=== PATIENT | female | born 1940 | race Caucasian/White ===

== ENCOUNTER 2023-03-22 22:34 | Emergency (ER) | payer OTHER, SELFPAY ==
[2023-03-22 22:48] VITALS: BP 170/72; PULSE 95; RESP 20; TEMP 36.9; O2SAT 95; BMI 27.1
--- NOTE | 2023-03-22 23:07 | XR_ITS ---
The [place] [id number] Patient Name: GARY ADAMES MRN: [id number] date: 1940 Sex: F Assigned Patient Location: ED.MAIN Current Patient Location: ER Accession/Order Number: [id number] Exam Date: 03/22/2023 23:50 Report Date: 03/23/2023 00:12 At the request of: IGOR MARKER Procedure: XR chest 2V EXAM: XR chest 2V HISTORY: cough COMPARISON: None. TECHNIQUE: PA and lateral views FINDINGS: The heart is upper normal in transverse diameter. Atherosclerotic change of the thoracic aorta is shown, without visible aneurysm. A calcified granuloma is seen in the left upper lung field laterally. The lung starkey are otherwise clear. Pleural spaces are clear. There are findings associated with previous lower cervical fusion. Right axillary surgical clips are noted. IMPRESSION: Chronic changes. No acute cardiopulmonary process is otherwise identified. Electronically authenticated by: Vick KWAN Date: 03/23/2023 00:12
--- NOTE | 2023-03-22 23:10 | ED_ITS ---
HPI - General Adult General Chief complaint: Shortness of Breath/Dyspnea Stated complaint: coughing/congestion Time Seen by Provider: 03/22/23 22:45 Source: patient and family Mode of arrival: walk-in Limitations: no limitations History of Present Illness HPI narrative: This 82-year-old female, nonsmoker presents for evaluation of 3 days of cough with chest congestion. The patient states that she cannot stop coughing. She has been using Mucinex and NyQuil. She denies any chest pain. She denies any fever but was noted to have a low-grade fever in the emergency department. 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 She denies any abdominal pain. She denies nausea vomiting or diarrhea. She has no lower extremity pain or swelling. Onset (ago): day(s) (3) Related Data Home Medications Medication Instructions Recorded Confirmed anastrozole 1 mg tablet 1 mg PO DAILY 03/22/23 03/22/23 bupropion HCl 300 mg 24 hr tablet, 300 mg PO DAILY 03/22/23 03/22/23 extended release levothyroxine 75 mcg tablet mcg 03/22/23 liothyronine 5 mcg tablet 5 mcg PO BID 03/22/23 03/22/23 meclizine 25 mg tablet 25 mg PO DAILY PRN dizziness 03/22/23 03/22/23 meloxicam 7.5 mg tablet 7.5 mg PO DAILY 03/22/23 03/22/23 omeprazole 40 mg capsule,delayed 40 mg PO BID 03/22/23 03/22/23 release paroxetine HCl 20 mg tablet 20 mg PO DAILY 03/22/23 03/22/23 simvastatin 10 mg tablet 10 mg PO DAILY 03/22/23 03/22/23 thyroid (pork) 15 mg tablet (SANDER PORTABLE MACHINE 60 mg PO BID 03/22/23 03/22/23 Thyroid) verapamil 240 mg tablet,extended 240 mg PO Q12H 03/22/23 03/22/23 release Allergies Allergy/AdvReac Type Severity Reaction Status Date / Time No Known Drug Allergies Allergy Verified 03/22/23 22:52 Review of Systems ROS Status of ROS 10 or more systems reviewed and unremarkable except as noted in history and below PFSH PFSH Social History Smoking status: Never smoker Exam Constitutional Vital Signs - 24 hr 03/22/23 22:48 03/22/23 23:58 03/23/23 00:53 Temperature 98.5 F Pulse Rate 77 Pulse Rate [Monitor] 95 H Respiratory Rate 20 18 20 Blood Pressure [Left Arm] 170/72 H Pulse Oximetry 95 93 L Oxygen Delivery Method Room Air 03/23/23 01:39 Temperature 98.6 F Pulse Rate Pulse Rate [Monitor] 94 H Respiratory Rate 20 Blood Pressure [Left Arm] 184/69 H Pulse Oximetry 92 L Oxygen Delivery Method Room Air Documenting provider has reviewed patient's vital signs: yes (Vital signs reviewed, the patient is not hypoxic with pulse ox 95 percent on room air) Common normals: no apparent distress, average body habitus and oriented x3 General appearance: comfortable (Episodes of bronchospastic coughing) and well kempt HENOH Common normals: normocephalic, head/scalp atraumatic, hearing grossly normal bilaterally and oropharynx normal Head and scalp: normal to inspection Face and sinus: normal facial exam Nose: external nose normal Mouth: oral and palatal mucosa normal Chest Common normals: inspection of chest normal Respiratory Common normals: normal respiratory effort, no retractions, no use of accessory muscles and clear to auscultation bilaterally Effort & inspection: able to speak in complete sentences and other (episodic moist bronchospastic cough) Auscultation: clear to auscultation bilaterally Cardio Common normals: regular rate, regular rhythm, S1 normal heart sound, S2 normal heart sound, no gallops, no murmurs and no rub GI Common normals: Normal to inspection, nondistended, normoactive bowel sounds present, soft to palpation and non-tender Extremity Common normals: normal to inspection, full ROM and normal capillary refill Neuro Common normals: oriented x3, CN's II-XII intact bilaterally, moves all extremities, no focal motor deficits and no sensory deficits noted Sensorium/orientation: awake, alert, oriented to person, oriented to place and oriented to time Psych Common normals: mental status grossly normal, thought process normal, cooperative, affect normal and speech normal Course Vital Signs Vital signs: Vital Signs Temperature 98.5 F 03/22/23 22:48 Pulse Rate 95 H 03/22/23 22:48 Respiratory Rate 20 03/22/23 22:48 Blood Pressure 170/72 H 03/22/23 22:48 Pulse Oximetry 95 03/22/23 22:48 Oxygen Delivery Method Room Air 03/22/23 22:48 Temperature 98.6 F 03/23/23 01:39 Pulse Rate 94 H 03/23/23 01:39 Respiratory Rate 20 03/23/23 01:39 Blood Pressure 184/69 H 03/23/23 01:39 Pulse Oximetry 92 L 03/23/23 01:39 Oxygen Delivery Method Room Air 03/23/23 01:39 Medical Decision Making MDM Narrative Medical decision making narrative: His 82-year-old female, nonsmoker presents for evaluation of 3 days of cough, chest congestion. She has not had a fever but had a low-grade fever in the emergency department. 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 The patient's lungs were clear but she was having severe bronchospasms. She received a DuoNeb treatment in the emergency department and this made her cough worse. Chest x-ray is read by radiology as negative however she does have a history of pneumonia and appears to me that she may be developing a right lower lobe infiltrate. This was discussed with her and she was medicated with oral doxycycline and a dose of Tylenol with codeine and Zofran. She was not having any additional symptoms. I offered her IV fluids and additional medications but she declined. A respiratory panel was ordered and is pending however the patient would like to be discharged home. We explained to her that we will call her with the results. She is otherwise improved after the Tylenol with codeine help stop her spasmodic coughing and she was discharged home with her in stable condition. She will be discharged home with prescription for Zofran to use to prevent nausea from the Tylenol with codeine cough medication, Tylenol with codeine cough medication and doxycycline. I encouraged her to return to emergency department for worsening symptoms or any concerns and to follow closely with her family physician. She and her are in agreement with this plan. Discharge Plan Discharge Chief Complaint: Shortness of Breath/Dyspnea Clinical Impression: Community acquired pneumonia Patient Disposition: Home, Self-Care Time of Disposition Decision: 02:02 Condition: Good Prescriptions / Home Meds: No Action anastrozole 1 mg tablet 1 mg PO DAILY bupropion HCl 300 mg tablet extended release 24 hr 300 mg PO DAILY liothyronine 5 mcg tablet 5 mcg PO BID meclizine 25 mg tablet 25 mg PO DAILY PRN (Reason: dizziness) meloxicam 7.5 mg tablet 7.5 mg PO DAILY omeprazole 40 mg capsule,delayed release(DR/EC) 40 mg PO BID paroxetine HCl 20 mg tablet 20 mg PO DAILY simvastatin 10 mg tablet 10 mg PO DAILY SANDER [employer]ABLE MACHINE Thyroid 15 mg tablet 60 mg PO BID Patient Comments: 2 tablets BID levothyroxine 75 mcg tablet verapamil 240 mg tablet extended release 240 mg PO Q12H Instructions: Community Acquired Pneumonia (ED) Stand Alone Forms: Portal Instructions Referrals: MAYURI MOSES [Primary Care Provider] - 1 week
[2023-03-22 23:58] VITALS: PULSE 77; RESP 18; O2SAT 93
[2023-03-22] MEDS: IPRATROPIUM/ALBUTEROL SULFATE 3 ML AMPUL.NEB IH (23:58)
[2023-03-23] MEDS: ONDANSETRON 4 MG RAPDIS TABLET SL (00:47)
[2023-03-23] MEDS: ACETAMINOPHEN 120 MG WITH CODEINE 12 MG/ 5 ML SOLUTION PO ×2 (00:47→02:12)
[2023-03-23] MEDS: DOXYCYCLINE MONOHYDRATE 100 MG CAPSULE PO (00:47)
[2023-03-23 00:53] VITALS: RESP 20
[2023-03-23 01:39] VITALS: BP 184/69; PULSE 94; RESP 20; TEMP 37; O2SAT 92
[2023-03-23 02:53] LABS: Adenovirus NOT DETECTED (NOT DETECTE); Bordetella parapertussis NOT DETECTED (NOT DETECTE); Coronavirus 229E NOT DETECTED (NOT DETECTE); Coronavirus HKU1 NOT DETECTED (NOT DETECTE); Coronavirus NL63 NOT DETECTED (NOT DETECTE); Coronavirus OC43 NOT DETECTED (NOT DETECTE); Human Metapneumovirus NOT DETECTED (NOT DETECTE); Human Rhinovirus/Enterovirus NOT DETECTED (NOT DETECTE); Influenza A NOT DETECTED (NOT DETECTE); Influenza B NOT DETECTED (NOT DETECTE); Mycoplasma pneumoniae NOT DETECTED (NOT DETECTE); Parainfluenza Virus 1 NOT DETECTED (NOT DETECTE); Parainfluenza Virus 2 NOT DETECTED (NOT DETECTE); Parainfluenza Virus 3 NOT DETECTED (NOT DETECTE); Parainfluenza Virus 4 NOT DETECTED (NOT DETECTE); Respiratory Syncytial Virus NOT DETECTED (NOT DETECTE); SARS-CoV-2 NOT DETECTED (NOT DETECTE)
== END 2023-03-23 02:18 | disposition home or self-care (01) ==
PROVIDERS: Emergency Provider Emergency Medicine; PCP Family Medicine
DX: J18.9 Pneumonia, unspecified organism (principal); R50.9 Fever, unspecified; Z79.899 Other long term (current) drug therapy; Z79.890 Hormone replacement therapy; Z20.822 Contact with and (suspected) exposure to COVID-19
CPT/HCPCS: 0202U; 71046; 94640; 99284

== ENCOUNTER 2023-04-04 12:38 | Outpatient (OUT) | payer OTHER, SELFPAY ==
[2023-04-04 13:02] LABS: Basophils Percent Auto 0.4 % (0.2-2.0); Eosinophils Absolute Auto 0.2 10^3/uL (0.0-0.7); Eosinophils Percent Auto 4.1 % (0.9-7.0); Hemoglobin 12.9 g/dL (12.0-16.0); Immature Granulocytes Abs Auto 0.01 10^3/uL (0.00-0.03); Immature Granulocytes Pct Auto 0.2 % (0.0-0.5); Lymphocytes Absolute Auto 1.7 10^3/uL (1.2-3.8); Lymphocytes Percent Auto 33.1 % (20.5-60.0); Mean Corpuscular HGB Conc 33.1 g/dL (29.9-35.2); Mean Corpuscular Hemoglobin 30.9 pg (26.7-34.0); Mean Corpuscular Volume 93.5 fL (81.0-99.0); Mean Platelet Volume 9.6 fL (9.5-13.5); Monocytes Absolute Auto 0.3 10^3/uL (0.3-0.8); Monocytes Percent Auto 6.6 % (1.7-12.0); Neutrophils Absolute Auto 2.9 10^3/uL (1.4-6.5); Neutrophils Percent Auto 55.6 % (43.0-75.0); Platelet Count 189 10^3/uL (150-450); Red Blood Count 4.17 10^6/uL (4.20-5.40); Red Cell Distribution Width 13.2 % (11.0-15.0); White Blood Count 5.1 10^3/uL (4.0-11.0)
[2023-04-04 13:49] LABS: Alanine Aminotransferase 22 U/L (14-59); Albumin Level 3.6 g/dL (3.4-5.0); Alkaline Phosphatase 73 U/L (46-116); Anion Gap 10.8; Aspartate Amino Transferase 16 U/L (15-37); BUN Creatinine Ratio 16.1; Bilirubin Total 0.4 mg/dL (0.2-1.0); Calcium 9.1 mg/dL (8.5-10.1); Carbon Dioxide 28.6 mmol/L (21.0-32.0); Chloride 103 mmol/L (98-107); Estimated GFR (African America >60 (>=60); Estimated GFR (Non-African Ame 58 (>=60); Globulin 3.6 g/dL; Glucose 87 mg/dL (74-106); Potassium 4.4 mmol/L (3.5-5.1); Sodium 138 mmol/L (136-145); Total Protein 7.2 g/dL (6.4-8.2)
== END 2023-04-04 12:39 | disposition home or self-care (01) ==
LOC: LAB 12:40
PROVIDERS: PCP Family Medicine; Visit Provider Family Medicine
DX: R44.1 Visual hallucinations (principal); R41.840 Attention and concentration deficit; R41.3 Other amnesia; R51.9 Headache, unspecified; R42 Dizziness and giddiness
CPT/HCPCS: 36415; 80053; 85025

== ENCOUNTER 2023-04-08 16:34 | Outpatient (OUT) | payer OTHER, SELFPAY ==
[2023-04-08 17:08] LABS: Ammonia 16 umol/L (11-32)
[2023-04-10 05:08] LABS: Vitamin B12 >2000 pg/mL (232-1245)
== END 2023-04-08 16:35 | disposition home or self-care (01) ==
LOC: LAB 16:35
PROVIDERS: PCP Family Medicine; Visit Provider Family Medicine
DX: R44.1 Visual hallucinations (principal); R41.3 Other amnesia; R41.840 Attention and concentration deficit; R51.9 Headache, unspecified; R42 Dizziness and giddiness
CPT/HCPCS: 36415; 82140; 82607

== ENCOUNTER 2023-06-18 10:05 | Outpatient (RCR) | payer OTHER, SELFPAY | END 2023-06-19 16:55 | disposition home or self-care (01) | LOC: OT 10:05 | PROVIDERS: PCP Family Medicine; Visit Provider Psychiatry & Neurology Neurology | DX: R26.81 Unsteadiness on feet (principal) | CPT/HCPCS: 97165 ==

== ENCOUNTER 2023-06-19 10:55 | Outpatient (RCR) | payer OTHER, SELFPAY | END 2023-07-20 16:25 | disposition home or self-care (01) | LOC: PT 10:55 | PROVIDERS: PCP Family Medicine; Visit Provider Psychiatry & Neurology Neurology | DX: R26.81 Unsteadiness on feet (principal) | CPT/HCPCS: 97035; 97110; 97112; 97116; 97161; 97530 ==

== ENCOUNTER 2023-07-08 12:28 | Outpatient (OUT) | payer OTHER, SELFPAY ==
--- NOTE | 2023-07-08 13:02 | XR_ITS ---
The [address] [address] Patient Name: GARY ADAMES MRN: [id number] date: 1940 Sex: F Assigned Patient Location: LAB Current Patient Location: LAB Accession/Order Number: [id number] Exam Date: 07/08/2023 13:20 Report Date: 07/08/2023 14:01 At the request of: NICHOLE FLAHERTY Procedure: XR cervical spine 2-3V EXAMINATION: XR cervical spine 2-3V HISTORY: Gait Instability R20.81, Imbalance R26.59 COMPARISON: No relevant comparison available. FINDINGS: BONES: Normal alignment with no acute fracture or spondylolisthesis. Anterior fusion with a plate and screws C4 through C7 with no mechanical failure. Moderate degenerative spondylosis and facet osteoarthropathy C3-C4 DISC SPACES: Interbody fusion C3-C7. Disc collapse C3-C4 with endplate sclerosis PARASPINOUS: Negative. No paraspinous abnormality is seen. OTHER: Negative. XR/XR cervical spine 2-3V IMPRESSION: Anterior fusion C4 through C7 with no mechanical failure Electronically authenticated by: ERICK HOLDEN Date: 07/08/2023 14:01
--- NOTE | 2023-07-08 13:02 | MR_ITS ---
[address] [address] Patient Name: GARY ADAMES MRN: [id number] date: 1940 Sex: F Assigned Patient Location: LAB Current Patient Location: LAB Accession/Order Number: [id number] Exam Date: 07/08/2023 13:48 Report Date: 07/08/2023 20:19 At the request of: NICHOLE FLAHERTY Procedure: MR head/brain wo/w con EXAM: MR head/brain wo/w con. HISTORY: Alzheimer's Disease Late Onset G30.1. COMPARISON: None. TECHNIQUE: Multiplanar, multisequence MR imaging of the head was performed prior to and following the administration of 12 mL Dotarem contrast intravenously. FINDINGS: No restricted diffusion. No acute hemorrhage, mass effect, midline shift or extra-axial fluid collection. There is moderate diffuse cerebral atrophy with concordant prominence of the ventricles. Moderate to severe patchy confluent areas of abnormal increased T2 and FLAIR signal are seen within the gaby, subcortical white matter and periventricular white matter. Expected flow voids are noted within the intracranial internal carotid, vertebral and basilar arteries. The cerebellopontine angles and internal auditory canals are unremarkable. The pituitary gland and midline structures are unremarkable. Bone marrow signal is within normal limits. There is artifact from anterior fixation hardware at the partially visualized C3 and C4 levels. The orbits and globes are unremarkable. There has been bilateral cataract eye surgery. Expected signal voids are seen within the paranasal sinuses and mastoid air cells. No abnormal enhancement. MR/MR head/brain wo/w con IMPRESSION: 1. Moderate to severe nonspecific FLAIR signal abnormalities of the gaby and supratentorial white matter, compatible with chronic small vessel ischemic changes. 2. Moderate diffuse cerebral atrophy with concordant prominence of the ventricles. 3. No acute infarct, mass effect or abnormal enhancement. Electronically authenticated by: ERICK PALMER Date: 07/08/2023 20:19
[2023-07-08 13:06] LABS: Estimated GFR (African America >60 (>=60); Estimated GFR (Non-African Ame 53 (>=60)
== END 2023-07-08 12:29 | disposition home or self-care (01) ==
PROVIDERS: PCP Family Medicine; Visit Provider Psychiatry & Neurology Neurology
DX: G30.1 Alzheimer's disease with late onset (principal); R26.81 Unsteadiness on feet; R26.89 Other abnormalities of gait and mobility
CPT/HCPCS: 36415; 70553; 72040; 82565; 84520

== ENCOUNTER 2023-07-24 10:59 | Outpatient (OUT) | payer OTHER, SELFPAY ==
[2023-07-24 11:58] LABS: Free T4 0.87 ng/dL (0.76-1.46)
[2023-07-24 12:06] LABS: Free T3 3.59 pg/mL (2.18-3.98)
[2023-07-25 09:09] LABS: Triiodothyronine (T3) 138 ng/dL (71-180)
[2023-08-01 18:08] LABS: Reverse T3, Serum 21.2 ng/dL (9.2-24.1)
== END 2023-07-24 11:00 | disposition home or self-care (01) ==
LOC: LAB 11:00
PROVIDERS: PCP Family Medicine; Visit Provider Family Medicine
DX: E03.8 Other specified hypothyroidism (principal); R53.82 Chronic fatigue, unspecified; E07.81 Sick-euthyroid syndrome
CPT/HCPCS: 36415; 84439; 84480; 84481; 84482

== ENCOUNTER 2023-07-25 08:00 | Outpatient (OUT) | payer OTHER, SELFPAY ==
[2023-07-25] MEDS: COVID VAC 23-24(12UP)MODERNA/PF 50 MCG/0.5 ML VIAL IM (14:45)
== END 2023-07-25 08:01 | disposition home or self-care (01) ==
LOC: VACCLI 09-13 09:35
PROVIDERS: PCP Family Medicine; Visit Provider Family Medicine
DX: Z23 Encounter for immunization (principal)
CPT/HCPCS: 90480; 91322

== ENCOUNTER 2023-08-09 11:30 | Outpatient (OUT) | payer OTHER, SELFPAY ==
--- NOTE | 2023-08-09 | MM_ITS ---
Patient Name: GARY ADAMES MR#: [id number] : 1940 Exam Date: 08/09/2023 Ordering Doctor: DR MAYURI MOSES . RADIOLOGY REPORT PROCEDURE: MM TOMOSYNTHESIS SCREENING BI COMPARISON: MG MAMM SCREEN 3D RUBEN CAD, 07/04/2022. MG MAMM RUBEN DIAG W CAD, 12/10/2019. MG MAMM RUBEN DIAG W CAD, 11/10/2018. MAMMO RUBEN SCREEN, 07/08/2008. INDICATIONS: screening for malignant neoplasm Calculator Name NCI Breast Cancer Risk Assessment Tool 5 Year Breast Cancer Risk n/a% Lifetime Breast Cancer Risk n/a% Personal Breast Cancer Yes, Right, 76 Personal Ovarian Cancer No Treatments lumpectomy and radiation treatment Family Cancers Mother with colon cancer at age 70. LOCATION: [facility] BREAST COMPOSITION: Heterogeneously dense,which may obscure small masses. FINDINGS: DIAGNOSTIC CATEGORY 2--BENIGN FINDING: RIGHT BREAST: No significant suspicious finding. Stable postsurgical scarring. No significant change has occurred. LEFT BREAST: No significant suspicious finding. No significant change has occurred. RECOMMENDATIONS: ROUTINE MAMMOGRAM AND CLINICAL EVALUATION IN 12 MONTHS. PLEASE NOTE: A NORMAL MAMMOGRAM DOES NOT EXCLUDE THE POSSIBILITY OF BREAST CANCER. A CLINICALLY SUSPICIOUS PALPABLE LUMP SHOULD BE BIOPSIED. Dictated by: Rory Velásquez M.D. on 08/09/2023 at 14:54 Approved by: Rory Velásquez M.D. on 08/09/2023 at 14:56
== END 2023-08-09 11:31 | disposition home or self-care (01) ==
LOC: MAMMO 11:31
PROVIDERS: PCP Family Medicine; Visit Provider Family Medicine
DX: Z12.31 Encounter for screening mammogram for malignant neoplasm of breast (principal); Z80.0 Family history of malignant neoplasm of digestive organs
CPT/HCPCS: 77063; 77067

== ENCOUNTER 2023-08-14 09:54 | Outpatient (OUT) | payer OTHER, SELFPAY ==
[2023-08-14 11:44] LABS: Alanine Aminotransferase 17 U/L (14-59); Albumin Level 3.4 g/dL (3.4-5.0); Alkaline Phosphatase 72 U/L (46-116); Anion Gap 11.2; Aspartate Amino Transferase 10 U/L (15-37); BUN Creatinine Ratio 18.8; Bilirubin Total 0.3 mg/dL (0.2-1.0); Calcium 8.6 mg/dL (8.5-10.1); Carbon Dioxide 31.3 mmol/L (21.0-32.0); Chloride 103 mmol/L (98-107); Cholesterol 323 mg/dL (<=200); Estimated GFR (African America >60 (>=60); Estimated GFR (Non-African Ame >60 (>=60); Globulin 3.5 g/dL; Glucose 85 mg/dL (74-106); HDL Cholesterol 108 mg/dL (40-60); Potassium 4.5 mmol/L (3.5-5.1); Sodium 141 mmol/L (136-145); Total Protein 6.9 g/dL (6.4-8.2); Triglycerides 49 mg/dL (<=150); VLDL CHOLESTEROL 9.8 mg/dL
== END 2023-08-14 09:55 | disposition home or self-care (01) ==
LOC: LAB 09:57
PROVIDERS: PCP Family Medicine; Visit Provider Family Medicine
DX: E78.2 Mixed hyperlipidemia (principal); I10 Essential (primary) hypertension; F33.41 Major depressive disorder, recurrent, in partial remission
CPT/HCPCS: 36415; 80053; 80061

== ENCOUNTER 2024-01-31 15:26 | Outpatient (OUT) | payer OTHER, SELFPAY ==
--- OUTSIDE RECORDS SUMMARY | 2024-01-31 15:34 | XMS_ITS | CCD ---
Author Organization [facility] Care Team Providers Care Cane Furniture Maker Name Role Phone PHYSICIAN, DEFAULT Unavailable Unavailable PHYSICIAN, DEFAULT Unavailable Unavailable Homero Moses Primary Care Provider Shadia Barrera DO Unavailable Homero Moses MD Primary Care Provider HOMERO MOSES Primary Care Physician Unavail able HEMEYER ., DR MESSINA Admitting Unavailable HEMEYER ., DR MESSINA Attending Unavailable HEMEYER ., DR MESSINA Consulting Unavailable HEMEYER ., DR MESSINA Primary Care Unavailable [place], DR ERICK Greer Consulting Unavailable HEMEYER ., DR MESSINA Primary Care Unavailable HEMEYER ., DR MESSINA Admitting Unavailable HEMEYER ., DR MESSINA Attending Unavailable HEMEYER ., DR MESSINA Consulting Unavailable HOY ., DR RENE Admitting Unavailable HOY ., DR RENE Attending Unavailable HOY ., DR RENE Consulting Unavailable HEMEYER ., DR MESSINA Primary Care Unavailable FLAVIA MCDANIELS Admitting Unavailable PELAYO ., MR MCCOLLUM Consulting Unavailable HEMEYER ., DR MESSINA Primary Care Unavailable FLAVIA MCDANIELS Attending Unavailable VALERIE SAWYER Consulting Unavailable HEMEYER ., DR MESSINA Admitting Unavailable HEMEYER ., DR MESSINA Attending Unavailable HEMEYER ., DR MESSINA Consulting Unavailable HEMEYER ., DR MESSINA Primary Care Unavailable HEMEYER ., DR MESSINA Admitting Unavailable HEMEYER ., DR MESSINA Attending Unavailable HEMEYER ., DR MESSINA Consulting Unavailable HEMEYER ., DR MESSINA Primary Care Unavailable Homero Moses MD Unavailable [phone] Homero Moses MD Primary Care Provider HOMERO MOSES Attending Unavailable HOMERO MOSES Attending Unavailable NATHALIE JONES Attending Unavailable NATHALIE JONES Attending Unavailable Allergies Allergy Classification Reported Allergen(s) Allergy Type Date of Onset Reaction(s) Facility (7 sources) Acetaminophen / oxyCODONE Drug Allergy 8 Mental Status Change [facility] [place] (3 sources) cow milk allergenic extract Drug Allergy 8 Vomiting [facility] [place] (4 sources) Soy protein; Translations: [Soy] Drug Allergy 8 Unknown [facility] [place] (4 sources) Mold Extract; Translations: [Mold] Drug Allergy Unknown (origin) (qualifier value) [facility] (4 sources) Pollen; Translations: [Pollen] Drug allergy Unknown (qualifier value) [facility] (4 sources) Grass; Translations: [Grass] Allergy to substance Unknown (qualifier value) [facility] (4 sources) Milk Products; Translations: [Milk Products] Drug allergy Unknown (qualifier value) [facility] (4 sources) Soy/Soy Products; Translations: [Soy/Soy Products] Drug allergy Unknown (qualifier value) [facility] (1 source) Milk Drug allergy (disorder) [facility] (1 source) Wheat preparation Drug Allergy [facility] (4 sources) Memantine Drug Allergy 3 Other, Tinnitus, GI intolerance [facility] (4 sources) WHEAT DEXTRIN Drug Allergy 3 [facility] (4 sources) Milk-Related Compounds Drug Allergy 3 [facility] (4 sources) Soybean-Containin g Drug Products Drug Allergy 3 [facility] Medications Current Medications Medication Drug Class(es) Dates Sig (Normalized) Sig (Original) aspirin 81 mg oral tablet (10 sources) Platelet Aggregation Inhibitor, Nonsteroidal Anti-inflammatory Drug Start: 02-29-2016 take 81 mg by mouth once daily Aspirin Low Dose 81 mg, Oral, Daily, Refills(s) 0, Blood Thinner Start Date: 02/29/16 Status: Ordered take 1 tablet by mouth in the mo rning aspirin 81 MG EC tablet Take 81 mg by mouth in the morning. 0 Active KAROLINA ASPIRIN OR AL Take by mouth. 0 Active Comment on above: Take by mouth. azelastine hydrochloride 0.137 mg/actuat metered dose nasal spray (7 sources) Histamine-1 Receptor Antagonist azelastine (Astelin) 0.1 % nasal spray Administer 2 sprays into each nostril every 12 (twelve) hours. 0 Active take 2 spray(s) nasa l route twice daily as needed azelastine (ASTELIN) 0.1% nasal spray azelastine 137 mcg (0.1 %) nasal spray aerosol USE 2 SPRAYS IN EACH NOSTRIL TWICE A DAY PRN 0 Active Comment on above: azelastine 137 mcg ( 0.1 %) nasal spray aerosol USE 2 SPRAYS IN EACH NOSTRIL TWICE A DAY PRN Calcium (3 sources) Phosphate Binder, Calcium Start: 02-29-2016 take 1 tablet by mouth once daily Calcium 600 D Tab 1 tab(s), Oral, Daily, Refill(s) 0, Prophylaxis Start Date: 02/29/16 Status: Ordered Calcium Citrate (7 sources) take 1 tablet by mouth in the morning CALCIUM CITRATE PO Take 1 tablet by mouth in the morning. 0 Active CALCIUM CITRATE ORAL Take by mouth. 0 Active Comment on above: Take by mouth. cholecalciferol 0.025 mg oral capsule (4 sources) Vitamin D take 1 capsule by mouth in the morning cholecalciferol (Vitamin D-3) 25 MCG (1000 UT) capsule Take 1,000 Units by mouth in the morning. 0 Active donepezil hydrochloride 10 mg oral tablet (7 sources) Start: 10-09-19 24 take 1 tablet by mouth at bedtime donepezil (Aricept) 10 MG tablet Take 10 mg by mouth at bedtime 0 10/09/2023 Active Start: 08-05-2023 End: 11-06-2023 take 1 tablet by mouth at bedtime donepezil (Aricept) 5 MG tablet Take 5 mg by mouth at bedtime. 0 08/05/2023 11/06/2023 Discontinued (Therapy completed) Benita (3 sources) Histamine-1 Receptor Antagonist Start: 02-29-2016 Benita See Instructions, PRN Allergy symptoms, Refills(s) 0 Start Date: 02/29/16 Status: Ordered fexofenadine / Pseudoephedrine (7 sources) alpha-Adrenergic Agonist, Histamine-1 Receptor Antagonist take 1 tablet by mouth once daily Fexofenadine-Pseudo ephedrine (BENITA-D 24 HOUR PO) Take 1 tablet by mouth 1 (one) time each day at the same time. 0 Active take 1 tablet by radha once daily, then take 1 tablet by mouth every twenty-four hours Fexofenadine-Pseudoephedrine (BENITA-D 24 HOUR) 180-240 mg per 24 hr tablet Take 1 tablet by mouth once daily. 0 Active Comment on above: Take 1 tablet by radha once daily. levothyroxine sodium 0.05 mg oral tablet (7 sources) l-Thyroxine Start: 3 End: 4 take 0.5 tablet by mouth in the morning levothyroxine (Synthroid, Levoxyl) 50 MCG tablet Indications: Acquired central hypothyroidism (CMS/HCC) Take 0.5 tablets (25 mcg) by mouth in the morning and 0.5 tablets (25 mcg) in the evening. Take before meals. 90 tablet 0 08/08/2023 Active Start: 02-29-2016 take 1 tablet by radha once daily levothyroxine 50 mcg (0.05 mg) Tab 50 microgram = 1 tab(s), Oral, Daily, Refills(s) 0, Thyroid Start Date: 02/29/16 Status: Ordered liothyronine sodium 0.005 mg oral tablet (4 sources) l-Triiodothyronine Start: 08-08-2023 End: 02-04-2024 take 1 tablet by mouth in the morning, then take 1 tablet by mouth before mealtime, then take 2 tablets by mouth twice daily before mealtime liothyronine (Cytomel) 5 MCG tablet Indications: Euthyroid sick syndrome Take 1 tablet (5 mcg) by mouth in the morning and 1 tablet (5 mcg) in the evening. Take before meals. 2 tablets BID AC, [place] or sigma brand only. 180 tablet 1 08/08/2023 02/04/2024 Active Magnesium Oxide (3 sources) Start: 02-29-2016 magnesium oxide See Instructions, Refills(s) 0, Prophylaxis Start Date: 02/29/16 Status: Ordered meclizine hydrochloride 25 mg oral tablet (4 sources) Antiemetic Start: 03-04-2023 meclizine (Antivert) 25 MG tablet Indications: Vertigo Take 0.5-2 tablets as needed for vertigo 60 tablet 0 03/04/2023 Active 24 hr mirabegron 50 mg extended release oral tablet (1 source) beta3-Adrenergic Agonist Start: 01-21-2024 take 1 tablet by mouth once daily Myrbetriq 50 mg oral tablet, extended release 50 mg = 1 tab(s), Oral, Daily, # 30 tab(s), Refills(s) 11, Pharmacy: [facility]/pharmacy #[id number], 150, cm, 01/21/24 15:16:00 EDT, Height/Length Dosing, 61.7, kg, 01/21/24 15:16:00 EDT, Weight Dosing Start Date: 01/21/24 Status: Ordered Multi Vitamin+ (3 sources) Start: 12-12-2020 Multi Vitamin+ Refill(s) 0 Start Date: 12/12/20 Status: Ordered multivitamin (Theragran) tablet (4 sources) take 2 tablets by mouth in the morning multivitamin (Theragran) tablet Take 2 tablets by mouth in the morning. 0 Active omeprazole 40 mg delayed release oral capsule (6 sources) Proton Pump Inhibitor Start: 08-12-2023 End: 02-08-2024 take 1 capsule by mouth in the morning omeprazole (PriLOSEC) [address] capsule Indications: Gastroesophageal reflux disease without esophagitis Take 1 capsule (40 mg) by mouth in the morning and 1 capsule (40 mg) in the evening. Take before meals. 180 capsule 1 08/12/2023 02/08/2024 Active Start: 02-29-2016 take 1 capsule by [facility] once daily omeprazole 20 mg Cap-EC = 1 cap(s), Oral, Daily, # 30 cap(s), Refills(s) 0, Control of stomach acid Start Date: 02/29/16 Status: Ordered ondansetron 4 mg oral tablet (4 sources) Serotonin-3 Receptor Antagonist Start: 05-23-2022 take 2 tablets by mouth every eight hours as needed for nausea ondansetron (Zofran) 4 MG tablet Take 8 mg by mouth every 8 (eight) hours if needed for nausea. 0 05/23/2022 Active PARoxetine hydrochloride 20 mg oral tablet (10 sources) Serotonin Reuptake Inhibitor Start: 02-29-2016 End: 02-08-2024 take 1 tablet by mouth in the morning PARoxetine (Paxil) 20 MG tablet Indications: Recurrent major depressive disorder, in partial remission (HCC) (CMS/HCC) Take 1 tablet (20 mg) by mouth in the morning. 90 tablet 1 08/12/2023 02/08/2024 Active Comment on above: Take 20 mg by mouth once daily. polyethylene glycol 3350 25003 mg powder for oral solution (4 sources) Osmotic Laxative polyethylene glycol, PEG, 3350 (MiraLax) 17 GM/SCOOP powder Take 17 g by mouth if needed. 0 Active simvastatin 10 mg oral tablet (10 sources) HMG-CoA Reductase Inhibitor Start: 02-29-2016 End: 02-08-2024 take 1 tablet by mouth at bedtime simvastatin (Zocor) 10 MG tablet Indications: Mixed dyslipidemia (CMS/HCC) Take 1 tablet (10 mg) by mouth at bedtime. 90 tablet 1 08/12/2023 02/08/2024 Active Comment on above: Take 10 mg by mouth daily at bedtime. solifenacin succinate 10 mg oral tablet (9 sources) Cholinergic Muscarinic Antagonist Start: 10-10-2022 take 1 tablet by mouth once daily Vesicare 10 mg Tab 10 mg = 1 tab(s), Oral, Daily, # 90 caplet(s), Refills(s) 3, Pharmacy: [id number], 150, cm, 01/16/23 15:30:00 EDT, Height/Length Dosing, 57, kg, 01/16/23 15:30:00 EDT, Weight Dosing Start Date: 01/16/23 Status: Ordered Start: 04-25-2021 take 1 tablet by radha th once daily, then take 2 tablets by mouth once daily solifenacin (VESICARE) 5 mg tablet TAKE 1 TABLET BY MOUTH DAILY FOR 2 WEEKS THEN INCREASE TO 2 TABLETS DAILY TOLERATING SIDE EFFECTS 0 04/25/2021 Active Comment on above: TAKE 1 TABLET BY RADHA TH DAILY FOR 2 WEEKS THEN INCREASE TO 2 TABLETS DAILY TOLERATING SIDE EFFECTS sucralfate 1000 mg oral tablet (7 sources) Aluminum Complex take 1 tablet by mouth three times daily at bedtime as needed sucralfate (Carafate) 1 g tablet Take 1 g by mouth See administration instructions. Dissolve 1 tablet in 2 oz of water three times daily before meals and again before bedtime as needed 0 Active take 1 tablet by mouth twice loyda ly sucralfate (CARAFATE) 1 gram tablet Carafate 1 gram tablet Take 1 tablet twice a day by oral route. 0 Active Comment on above: Carafate 1 gram tabl et Take 1 tablet twice a day by oral route. verapamil hydrochloride 240 mg extended release oral tablet (10 sources) Calcium Channel Oleg Start: 3 End: 4 take 1 tablet by mouth once daily verapamil SR (Calan SR) 240 MG ER tablet Indications: Primary hypertension (CMS/HCC) Take 1 tablet (240 mg) by mouth 1 (one) time each day at the same time. 90 tablet 1 08/12/2023 02/08/2024 Active Start: 02-29-2016 take 1 capsule by [facility] once daily verapamil 240 mg Cap-ER 240 mg = 1 cap(s), Oral, Daily, Refills(s) 0, Irregular heartbeat Start Date: 02/29/16 Status: Ordered Comment on above: Take 240 mg by mouth daily at bedtime. vitamin b12 0.5 mg oral tablet (4 sources) Vitamin B12 take 1 tablet by mouth in the morning cyanocobalamin (Vitamin B-12) 500 MCG tablet Take 500 mcg by mouth in the morning. 0 Active Vitamin B12 250 mcg oral tablet (2 sources) Start: 02-29-2016 Vitamin B12 250 mcg oral tablet See Instructions, Refills(s) 0, Prophylaxis Start Date: 02/29/16 Status: Ordered Vitamin C 1000 mg oral tablet (3 sources) Start: 02-29-2016 Vitamin C 1000 mg oral tablet See Instructions, Refills(s) 0, Prophylaxis Start Date: 02/29/16 Status: Ordered Vitamin D3 1000 intl units oral capsule (3 sources) Start: 02-29-2016 Vitamin D3 1000 intl units oral capsule See Instructions, Refills(s) 0, Prophylaxis Start Date: 02/29/16 Status: Ordered Completed/Discontinued Medications Medication Drug Class(es) Dates Sig (Normalized) Sig (Original) anastrozole 1 mg oral tablet (6 sources) Aromatase Inhibitor Start: 09-01-2020 take 1 tablet by mouth once daily anastrozole (ARIMIDEX) 1 mg tablet TAKE 1 TABLET BY MOUTH EVERY DAY 90 tablet 3 11/24/2021 Active Comment on above: Take 1 tablet by radha th once daily. TAKE 1 TABLET BY RADHA TH EVERY DAY biotin 5 mg oral tablet (3 sources) take 1 tablet by mouth once daily biotin 5 mg tab Take 5 mg by mouth once daily. 0 Active Comment on above: Take 5 mg by mouth o nce daily. 24 hr buPROPion hydrochloride 150 mg extended release oral tablet (7 sources) Aminoketone Start: 08-12-2023 End: 02-08-2024 take 1 tablet by mouth every twenty-four hours in the morning buPROPion XL (Wellbutrin XL) 150 MG 24 hr tablet Indications: Recurrent major depressive disorder, in partial remission (HCC) (CMS/HCC) Take 1 tablet (150 mg) by mouth in the morning. Do not crush, chew, or split.. 90 tablet 1 08/12/2023 11/12/2023 Discontinued (Dose adjustment) Start: 11-21-2020 take 1 tablet by radha th once daily in the morning buPROPion SR (ZYBAN SR; WELLBUTRIN SR) 150 mg 12 hr tablet TAKE 1 TABLET BY MOUTH EVERY DAY IN THE MORNING 0 11/21/2020 Active Comment on above: TAKE 1 TABLET BY RADHA TH EVERY DAY IN THE MORNING calcium carbonate/vitamin D2 ([id number]-032-X ORAL) (3 sources) calcium carbonate/vitamin D2 ([id number]-351-[id number] ORAL) Take by mouth. 0 Active Comment on above: Take by mouth. cholecalciferol, vitamin D3, (D-3-5 ORAL) (3 sources) cholecalciferol, vitamin D3, (D-3-5 ORAL) Take by mouth. 0 Active Comment on above: Take by mouth. estradiol 0.1 mg/ml vaginal cream (3 sources) Estrogen Start: 11-16-2020 estradiol (ESTRACE) 0.01 % (0.1 mg/gram) vaginal cream INSERT ONE GRAM VAGINALLY THREE TIMES WEEKLY 0 11/16/2020 Active Comment on above: INSERT ONE GRAM VAGI JANET THREE TIMES WEEKLY Magnesium (3 sources) Magnesium 250 mg tab Take 250 mg by mouth. 0 Active Comment on above: Take 250 mg by mouth . MULTI-VITAMIN ORAL (3 sources) Start: 12-12-2020 MULTI-VITAMIN ORAL Refill(s) 0 0 12/12/2020 Active Comment on above: Refill(s) 0 raNITIdine 150 mg oral tablet (3 sources) Histamine-2 Receptor Antagonist Start: 11-12-2017 ranitidine (ZANTAC) 150 mg tablet Indications: Malignant neoplasm of right breast in female, estrogen receptor positive, unspecified site of breast (HCC) 150 mg once daily. DIRECTED 2 11/12/2017 Active Comment on above: 150 mg once daily. A S DIRECTED Strontium (3 sources) STRONTIUM [id number] ORAL Take by mouth. 0 Active Comment on above: Take by mouth. thyroid (long term) 60 mg oral tablet (3 sources) take 1 tablet by mouth twice daily thyroid, pork, (RECRUITING COORDINATOR THYROID) 60 mg RECRUITING COORDINATOR Thyroid 60 mg tablet TAKE 1 TABLET BY MOUTH TWICE A DAY ON EMPTY STOMACH 0 Active Comment on above: RECRUITING COORDINATOR Thyroid 60 mg tab let TAKE 1 TABLET BY MOUTH TWICE A DAY ON EMPTY STOMACH Problems Active Problems Problem Classification Problem Date Documented Date Episodic/Chronic Abdominal hernia (3 sources) Hiatal hernia 12-05-2020 Episodic Cancer of breast (13 sources) Malignant neoplasm of lower-outer quadrant of female breast; Translations: [Malignant neoplasm of lower-outer quadrant of right female breast] Onset: 8 Chronic Congestive heart failure; nonhypertensive (4 sources) Chronic diastolic heart failure; Translations: [Chronic diastolic (congestive) heart failure] Onset: 3 03-04-2023 Chronic Coronary atherosclerosis and other heart disease (7 sources) Coronary arteriosclerosis; Translations: [Coronary atherosclerosis] Onset: 3 12-05-2020 Chronic Delirium, dementia, and amnestic and other cognitive disorders (10 sources) Vascular dementia ; Translations: [Moderate vascular dementia with psychotic disturbance] Onset: 3 05-20-2023 Chronic Diseases of white blood cells (4 sources) Granulomatous disorder; 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] Onset: 3 03-04-2023 Chronic Disorders of lipid metabolism (15 sources) Hyperlipidemia; Translations: [Mixed hyperlipidemia] Onset: 6 Resolved: 3 12-05-2020 Chronic Endometriosis (3 sources) Endometriosis (clinical) 12-05-2020 Chronic Esophageal disorders (11 sources) Gastroesophageal reflux disease; Translations: [Gastroesophageal reflux disease without esophagitis] Onset: 3 12-05-2020 Chronic Essential hypertension (5 sources) Essential (primary) hypertension; Translations: [Essential hypertension] Onset: 2 03-04-2023 Chronic Genitourinary symptoms and ill-defined conditions (16 sources) Mixed incontinence; Translations: [Incontinence without sensory awareness] Onset: 3 Chronic Genitourinary symptoms and ill-defined conditions (11 sources) Urgent desire to urinate; Translations: [Urgency of urination] Onset: 3 Episodic Hepatitis (4 sources) Hepatic granuloma; 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, not elsewhere classified] Onset: 3 03-04-2023 Chronic Malaise and fatigue (11 sources) Chronic fatigue, unspecified; Translations: [Fatigue] Onset: 2 Chronic Menopausal disorders (8 sources) Atrophic vaginitis; Translations: [Postmenopausal atrophic vaginitis] Onset: 3 03-04-2023 Chronic Mood disorders (9 sources) Depressive disorder; Translations: [Recurrent major depression in partial remission] Onset: 3 12-05-2020 Chronic Mycoses (3 sources) Histoplasmosis 12-05-2020 Episodic Nutritional deficiencies (4 sources) Vitamin D deficiency; Translations: [Vitamin D deficiency, unspecified] Onset: 3 03-04-2023 Chronic Osteoporosis (12 sources) Senile osteoporosis; Translations: [Age-related osteoporosis without current pathological fracture] Onset: 1 Chronic Other and unspecified benign neoplasm (6 sources) Intracranial meningioma; Translations: [Benign neoplasm of cerebral meninges] Onset: 3 03-04-2023 Chronic Other diseases of bladder and urethra (4 sources) Overactive bladder; Translations: [Overactive bladder] Onset: 3 03-04-2023 Chronic Other hereditary and degenerative nervous system conditions (4 sources) Cerebral atrophy; Translations: [Degenerative disease of nervous system, unspecified] Onset: 3 05-20-2023 Chronic Other nervous system disorders (3 sources) Carpal tunnel syndrome 12-05-2020 Chronic Other nervous system disorders (6 sources) White matter disease; Translations: [White matter disease, unspecified] Onset: 3 03-04-2023 Episodic Other nutritional; endocrine; and metabolic disorders (6 sources) Overweight; Translations: [Overweight] Onset: 3 03-04-2023 Episodic Other upper respiratory disease (4 sources) Allergic rhinitis; Translations: [Allergic rhinitis, unspecified] Onset: 3 03-04-2023 Chronic Prolapse of female genital organs (3 sources) Cystocele 12-05-2020 Chronic Residual codes; unclassified (4 sources) Obstructive sleep apnea syndrome; Translations: [Obstructive sleep apnea (adult) (pediatric)] Onset: 3 03-04-2023 Chronic Residual codes; unclassified (4 sources) Periodic limb movement disorder; Translations: [Periodic limb movement disorder] Onset: 3 03-04-2023 Chronic Residual codes; unclassified (4 sources) Slow respiration; Translations: [Sleep apnea, unspecified] Onset: 3 03-04-2023 Chronic Spontaneous (3 sources) Miscarriage 12-05-2020 Episodic Thyroid disorders (8 sources) Hypothyroidism; Translations: [Other specified hypothyroidism] Onset: 2 12-05-2020 Chronic Thyroid disorders (12 sources) Sick-euthyroid syndrome; Translations: [Sick-euthyroid syndrome] Onset: 2 12-05-2020 Episodic Past or Other Problems Problem Classification Problem Date Documented Da te Episodic/Chronic Cancer of breast (1 source) Personal history of malignant neoplasm of breast; Translations: [PERS HX MALIGNANT NEOPLASM BREAST] Onset: 2 Episodic Other aftercare (1 source) Other terminal worker (current) drug therapy; Translations: [OTH ACCOUNT EXECUTIVE TRAINEE CURRENT DRUG THERAPY] Onset: 2 Episodic Other and unspecified benign neoplasm (4 sources) Gastric polyp; Translations: [Polyp of stomach and duodenum] Onset: 3 03-04-2023 Episodic Other bone disease and musculoskeletal deformities (7 sources) Osteopenia; Translations: [Other specified disorders of bone density and structure, other site] Onset: 2 01-11-2022 Episodic Other connective tissue disease (3 sources) Other specified soft tissue disorders; Translations: [OTHER SPEC SOFT TISSUE DISORDERS] Onset: 2 Episodic Other gastrointestinal disorders (4 sources) Chronic constipation; Translations: [Other constipation] Onset: 3 03-04-2023 Episodic Other screening for suspected conditions (not mental disorders or infectious disease) (5 sources) Encounter for screening mammogram for malignant neoplasm of breast; Translations: [Encounter for screening for diabetes mellitus] Onset: 2 Episodic Phlebitis; thrombophlebitis and thromboembolism (2 sources) Phlebitis and thrombophlebitis of superficial vessels of right lower extremity; Translations: [Personal history of other venous thrombosis and embolism] Onset: 2 Episodic Residual codes; unclassified (1 source) Family history of malignant neoplasm of digestive organs; Translations: [FAM HX MALIG NEOPLASM DIGESTIV ORGN] Onset: 2 Episodic Results Test Name Value Interpretation Reference Range Facility Screenson 01-22-2024 Screens [id number] TIFF Normal [facility] Ambulatory Visit Summaryon 0 01-21-2024 Ambulatory Visit Summary YANET ADAMES :1940 Visit Date:01/21/2024 Ambulatory Visit Instructions Your Diagnosis Mixed incontinence Alzheimer disease Dementia in other diseases classified elsewhere, unspecified severity, without behavioral disturbance, psychotic disturbance, mood disturbance, and anxiety Your Care Team Attending Physician - ROBERT CONRAD, NATHALIE Vickers Primary Care Physician - JOSUÉ COSTELLO, HOMERO [place] This Is Your Medications List mirabegron (Myrbetriq 50 mg oral tablet, extended release) Contact prescribing physician if questions or concerns ascorbic acid (Vitamin C 1000 mg oral tablet) aspirin (Aspirin Low Dose) calcium-vitamin D (Calcium 600 D Tab) cholecalciferol (Vitamin D3 1000 intl units oral capsule) fexofenadine (Benita) levothyroxine (levothyroxine 50 mcg (0.05 mg) Tab) magnesium oxide multivitamin (Multi Vitamin+) paroxetine (paroxetine 20 mg Tab) simvastatin (simvastatin 10 mg Tab) verapamil (verapamil 240 mg Cap-ER) [Image Removed: STOP]Stop taking these medications solifenacin (Vesicare 10 mg Tab) Procedures Performed Urodynamics (12/20/2020), Lumpectomy (01/24/2018), Sling procedure of bladder neck (1994), History of hysterectomy.. (1988), Bilateral tubal ligation (1975), Appendectomy, Bilateral carpal tunnel syndrome, Bilateral cataracts, Colonoscopy, Cystoscopy, Tonsillectomy. Discharge Vitals Temperature (Temporal Artery) 36.7 ?C Heart Rate (Peripheral) 84 Respiratory Rate 16 Blood Pressure 112/58 Height 150 cm Height 59 in Weight 61.7 kg Weight 135.74 lb BMI 27.42 What to do next Scheduled Follow-Up Appointments Saturday 2:00 PM EDT With: NATHALIE JONES PA-C [facility] Patient Educationon 01-21-20 Patient Education Urology Urinary Incontinence Urinary incontinence refers to a condition in which a person is unable to control where and when to pass urine. A person with this condition will urinate involuntarily. This means that the person urinates when he or she does not mean to. What are the causes? This condition may be caused by: ? Medicines. ? Infections. ? Constipation. ? Overactive bladder muscles. ? Weak bladder muscles. ? Weak pelvic floor muscles. These muscles provide support for the bladder, intestine, and, in women, the uterus. ? Enlarged prostate in men. The prostate is a gland near the bladder. When it gets too big, it can pinch the urethra. With the urethra blocked, the bladder can weaken and lose the ability to empty properly. ? Surgery. ? Emotional factors, such as anxiety, stress, or post-traumatic stress disorder (PTSD). ? Spinal cord injury, nerve injury, or other neurological conditions. ? Pelvic organ prolapse. This happens in women when organs move out of place and into the vagina. This movement can prevent the bladder and urethra from working properly. What increases the risk? The following factors may make you more likely to develop this condition: ? Age. The older you are, the higher the risk. ? Obesity. ? Being physically inactive. ? and childbirth. ? Menopause. ? Diseases that affect the nerves or spinal cord. ? Long-term, or chronic, coughing. This can increase pressure on the bladder and pelvic floor muscles. What are the signs or symptoms? Symptoms may vary depending on the type of urinary incontinence you have. They include: ? A sudden urge to urinate, and passing urine involuntarily before you can get to a bathroom (urge incontinence). ? Suddenly passing urine when doing activities that force urine to pass, such as coughing, laughing, exercising, or sneezing (stress incontinence). ? Needing to urinate often but urinating only a small amount, or constantly dribbling urine (overflow incontinence). ? Urinating because you cannot get to the bathroom in time due to a physical disability, such as arthritis or injury, or due to a communication or thinking problem, such as Alzheimer's disease (functional incontinence). How is this diagnosed? This condition may be diagnosed based on: ? Your medical history. ? A physical exam. ? Tests, such as: ? Urine tests. ? X-rays of your kidney and bladder. ? Ultrasound. ? CT scan. ? Cystoscopy. In this procedure, a health care provider inserts a tube with a light and camera (cystoscope) through the urethra and into the bladder to check for problems. ? Urodynamic testing. These tests assess how well the bladder, urethra, and sphincter can store and release urine. There are different types of urodynamic tests, and they vary depending on what the test is measuring. To help diagnose your condition, your health care provider may recommend that you keep a log of when you urinate and how much you urinate. How is this treated? Treatment for this condition depends on the type of incontinence that you have and its cause. Treatment may include: ? Lifestyle changes, such as: ? Quitting smoking. ? Maintaining a healthy weight. ? Staying active. Try to get 150 minutes of moderate-intensity exercise every week. Ask your health care provider which activities are safe for you. ? Eating a healthy diet. ? Avoid high-fat foods, like fried foods. ? Avoid refined carbohydrates like white bread and white rice. ? Limit how much alcohol and caffeine you drink. ? Increase your fiber intake. Healthy sources of fiber include beans, whole grains, and fresh fruits and vegetables. ? Behavioral changes, such as: ? Pelvic floor muscle exercises. ? Bladder training, such as lengthening the amount of time between bathroom breaks, or using the bathroom at regular intervals. ? Using techniques to suppress bladder urges. This can include distraction techniques or controlled breathing exercises. ? Medicines, such as: ? Medicines to relax the bladder muscles and prevent bladder spasms. ? Medicines to help slow or prevent the growth of a man's prostate. ? Botox injections. These can help relax the bladder muscles. ? Treatments, such as: ? Using pulses of electricity to help change bladder reflexes (electrical nerve stimulation). ? For women, using a medical bill processor to prevent urine leaks. This is a small, tampon-like, disposable device that is inserted into the urethra. ? Injecting collagen or carbon beads (bulking agents) into the urinary sphincter. These can help thicken tissue and close the bladder opening. ? Surgery. Follow these instructions at home: Lifestyle ? Limit alcohol and caffeine. These can fill your bladder quickly and irritate it. ? Keep yourself clean to help prevent odors and skin damage. Ask your health care provider about special skin creams and cleansers that can protect the skin from urine. ? (more content not included)... Normal [facility] Urology Office/Clinic Noteon 01-21-2024 Urology Office/Clinic Note Chief Complaint 1 yr f/u HPI Staff PRW pt 1yr DX: Mixed Incontinence & Urgency *VESIcare 10mg qd therapy. Dysuria: denies Incomplete bladder emptying: denies Hematuria: denies Frequency: denies Urgency: yes Nocturia: 1x a night Stream: steady Leaking: yes Post void dripping: Wearing pads/ Depends: wears depends when out shopping or on a long trip Urge incontinence: sometimes Stress incontinence: yes Incontinence without Sensory Awareness: denies Abdominal pain: denies Flank pain: denies Sexual complaints: _ History of Present Illness staff HPI reviewed and agree. Review of Systems PHQ Score Initial Depression Screen Score: 0 SCORE no fever, chills, malaise, myalgia. no rash/lesions. no chest pain, palpitations, or SOB. no abdominal pain, nausea, vomiting. no unilateral calf swelling, redness, pain Physical Exam Vitals & Measurements T: 36.7 ?C(Temporal Artery) HR: 84(Peripheral) RR: 16 BP: 112/58 HT: 59 in HT: 150 cm WT: 61.7 kg WT: 135.74 lb BMI: 27.42 General: nontoxic, NAD Mouth: moist mucosa Lungs: normal respiratory effort Cardio: regular rate, good distal perfusion Abdomen: nondistended, no suprapubic distention or tenderness, no CVA tenderness Neurologic: Grossly normal Skin: No rashes or suspicious lesions Assessment/Plan Dr. Tucrios pt. 1. Mixed incontinence (N39.46: Mixed incontinence) BBS 14. UA today negative for blood and infection. Taking Vesicare 10mg qd. Wears depends for protection. States she goes to the bathroom q3-4hrs. Has episodes of severe urgency. Discussed urgency may be due to waiting too long to void. Recommended timed voids to prevent these episodes. States she was recently diagnosed with dementia. I do see neuro consult in her chart from last fall w dx Alzheimers, late onset. Advised pt Vesicare (all anticholinergics) have potential to worsen mental status changes/confusion. Will need to switch bladder meds. Pt understands. -D/c Vesicare -Start Myrbetriq. Discussed the medication side effects (specifically increased blood pressure), and the patient will monitor closely for these, as well as for symptom improvement. If severe side effects occur, the medication should be stopped and the office notified. If co-pay is cost prohibitive, pt is to call the office. f/u in 2-3 mos to assess efficacy. -Start timed voids -all instructions written and provided to pt due to cognitive impairment since she is not accompanied by family member at today's appt Ordered: mirabegron, 50 mg = 1 tab(s), Oral, Daily, # 30 tab(s), Refills(s) 11, Pharmacy: [facility]/pharmacy #[id number], 150, cm, 01/21/24 15:16:00 EDT, Height/Length Dosing, 61.7, kg, 01/21/24 15:16:00 EDT, Weight Dosing Body Mass Index (BMI) documented 3008F Current tobacco non-user 1036F Depression Screening Negative 3352F Influenza immunization status assessed 1030F Medication list documented in medical record 1159F Most recent diastolic blood pressure <80 mm Hg 3078F Patient screen for fall risk: no falls in last year or 1 fall with no injury in last year 1101F Review of all meds by a prescribing practitioner or clinical pharmacist documented in EHR 1160F Systolic BP <130 mm Hg (Most Recent) 3074F Urnls Dip Stick Auto w/o Microscopy POC 13256 2. Alzheimer disease (G30.9: Alzheimer's disease, unspecified) see #1. not a good candidate for anticholinergics. Dementia in other diseases classified elsewhere, unspecified severity, without behavioral disturbance, psychotic disturbance, mood disturbance, and anxiety (F02.80: Dementia in other diseases classified elsewhere, unspecified severity, without behavioral disturbance, psychotic disturbance, mood disturbance, and anxiety) Follow-up With When Contact Information NATHALIE JONES PA-C, URL [address] [place] [address] [phone] Additional Instructions: 2-3 mos (new med) Patient Education Urinary Incontinence Documentation recorded by the kulwinderibluciano Quevedo accurately reflects the services(s) I performed and decisions made by me. Authenticated by Nathalie Jones PA-C on 01/21/2024 15:42:09. ILiset, personally scribed for Nathalie Jones PA-C on 01/21/2024 15:35:55. . Problem List/Past Medical History Ongoing Bladder prolapse, female, acquired Breast cancer CAD (coronary artery disease) Carpal tunnel syndrome of left wrist Depression Endometriosis Euthyroid sick syndrome GERD (gastroesophageal reflux disease) Hiatal hernia Histoplasmosis Hyperlipidemia Hypothyroidism Incontinence without sensory awareness Miscarriage Mixed incontinence Nocturia Urge incontinence Urge urinary incontinence Urgency of urination Urinary urgency Historical No qualifying data Procedure/Surgical History Urodynamics (12/20/2020), Lumpectomy (01/24/2018), Sling procedure of bladder neck (1994), History of hysterectomy.. (1988), Bilat (more content not included)... [facility] Comment on above: Result Comment: Elec tronically Signed By: NATHALIE JONES PA-C\.br\Date and Time Signed: 01/21/24 15:42 EDT\.br\Electronically Co-Signed By: Liset Quevedo\.br\Date and Time Co-Signed: 01/21/24 15:37 EDT Consultation Noteon 07-25-20 23 Consultation Note [id number] IFF [facility] Consultation Noteon 06-12-20 Consultation Note [id number] :127 Normal [facility] REVERSE T3on 02-12-2023 Reverse T3, Serum 17.8 ng/dL Normal 9.2-24.1 [facility] Comment on above: Performed By: #### T SH, FT3 #### [facility] [address] [place] [address] Dr. Silvestre Williamson T3, TOTAL (TRIIODOTHYRONINE) on 01-30-2023 T3, TOTAL 121 ng/dL Normal 71-180 [facility] Comment on above: Performed By: #### T 3TOTAL #### [facility] [address] [place] [address] Dr. Silvestre Williamson FREE T3on 01-29-2023 FREE T3 2.87 pg/mlL Normal 2.18-3.98 [facility] Comment on above: Performed By: #### T SH, FT3 #### [facility] [address] [place] [address] Dr. Silvestre Williamson FREE T4on 01-29-2023 Free T4 [Mass/Vol] 0.64 ng/dL Critically low 0.76-1.[address] [facility] Comment on above: Performed By: #### F T4 #### [facility] [address] [place] [address] Dr. Silvestre Williamson TSHon 01-29-2023 TSH 0.220 uIU/mL Critically low 0.358-3.740 [facility] Comment on above: Performed By: #### T SH, FT3 #### [facility] [address] [place] [address] Dr. Silvestre Williamson US MARCELA DOP LEG RTon 08-24-20 US MARCELA DOP LEG RT EXAM: US MARCELA DOP LEG RT HISTORY: Pain in right leg COMPARISON: None. TECHNIQUE: Ultrasonography of the right lower extremity is performed from the groin to the calf. FINDINGS: The deep venous structures demonstrate normal compressibility without intraluminal thrombus. Normal color Doppler images. The small saphenous vein appears partially due to noncompressible within the mid to distal calf, consistent with superficial venous thrombosis. IMPRESSION: No evidence for deep venous thrombosis. There is superficial venous thrombosis involving the small saphenous vein in the mid to distal calf. Electronically authenticated by: VALERIE SAWYER Date: 2022-08-24 18:12 Normal [facility] REVERSE T3on 07-31-2022 Reverse T3, Serum 16.3 ng/dL Normal 9.2-24.1 [facility] Comment on above: Result Comment: This test was developed and its performance characteristics determined by [email or web address]. It has not been cleared or approved by the Food and Drug Administration. Performed By: #### T SH, FT3 #### [facility] [address] [place] [address] Dr. Silvestre Williamson T3, TOTAL (TRIIODOTHYRONINE) on 07-26-2022 T3, TOTAL 156 ng/dL Normal 71-180 [facility] Comment on above: Performed By: #### T 3TOTAL #### [facility] [address] [place] [address] Dr. Silvestre Williamson FREE T3on 07-25-2022 FREE T3 3.85 pg/mlL Normal 2.18-3.98 [facility] Comment on above: Performed By: #### T SH, FT3 #### [facility] [address] [place] [address] Dr. Silvestre Williamson FREE T4on 07-25-2022 Free T4 [Mass/Vol] 1.04 ng/dL Normal 0.76-1.46 [facility] Comment on above: Performed By: #### F T4 #### [facility] [address] [place] [address] Dr. Silvestre Williamson TSHon 07-25-2022 TSH Qn m[IU]/L Critically low 0.358-3.740 [facility] Comment on above: Performed By: #### T SH, FT3 #### [facility] [address] [place] [address] Dr. Silvestre Williamson MG MAMM SCREEN 3D RUBEN CADon 07-04-2022 MG MAMM SCREEN 3D RUBEN CAD Patient: YANET ADAMES Exam Date: 07/04/2022 : 1940 Gender:F Ordering : DR HOMERO MOSES . Admission #: [id number] Family : Order #: [id number] CLICK HERE TO VIEW EXAM RADIOLOGY REPORT PROCEDURE: MAMMOGRAM SCREENING 3D BILATERAL CAD COMPARISON: MG MAMM RUBEN DIAG W CAD, 12/10/2019. MG MAMM RUBEN DIAG W CAD, 11/10/2018. INDICATIONS: Screening mammography Calculator Name NCI Breast Cancer Risk Assessment Tool 5 Year Breast Cancer Risk n/a% Lifetime Breast Cancer Risk n/a% Personal Breast Cancer Yes, Right, 76 Personal Ovarian Cancer No Treatments lumpectomy and radiation treatment Family Cancers Mother with colon cancer at age 70. LOCATION: [facility] BREAST COMPOSITION: Heterogeneously dense,which may obscure small masses. FINDINGS: DIAGNOSTIC CATEGORY 2--BENIGN FINDING. NO CHANGE FROM COMPARISON. Scattered benign-appearing calcifications are present. RIGHT BREAST: No significant suspicious finding. Asymmetrically small, stable. Areas of architectural distortion, deep to linear scar markers, stable postsurgical changes. Axillary surgical clips. LEFT BREAST: No significant suspicious finding. RECOMMENDATIONS: ROUTINE MAMMOGRAM AND CLINICAL EVALUATION IN 12 MONTHS. PLEASE NOTE: A NORMAL MAMMOGRAM DOES NOT EXCLUDE THE POSSIBILITY OF BREAST CANCER. A CLINICALLY SUSPICIOUS PALPABLE LUMP SHOULD BE BIOPSIED. Dictated by: Erick Hyde MD on 07/04/2022 at 09:08 Approved by: Erick Hyde MD on 07/04/2022 at 09:10 Normal [facility] LIPID PROFILEon 06-06-2022 CHOL-HDL RATIO NORM SEE BELOW Normal [facility] Comment on above: Result Comment: 3.3 - 4.4 LOW RISK 4.4 - 7.1 AVERAGE RISK 7.1 - 11.0 MODERATE RISK >11.0 HIGH RISK Performed By: #### T NEGAR, FT3 #### [facility] [address] [address] [address] Silvestre Williamson Cholesterol [Mass/Vol] 271 mg/dL Critically high <=200 [facility] Comment on above: Performed By: #### T NEGAR, FT3 #### [facility] [address] [place], [place] [address] Dr. Silvestre Williamson Cholesterol in HDL [Mass/Vol] 122 mg/dL Critically high 40-60 [facility] Comment on above: Performed By: #### T NEGAR, FT3 #### [facility] [address] [address] [address] Silvestre Williamson Cholesterol in LDL [Mass/Vol] 140.6 mg/dL Normal [facility] Comment on above: Performed By: #### T SH, FT3 #### [facility] [address] [address] [address] Silvestre Williamson Cholesterol.total/ Cholesterol in HDL [Mass ratio] 2.2 {ratio} Normal [facility] Comment on above: Performed By: #### T SH, FT3 #### [facility] [address] [address] [address] Silvestre Williamson HDL NORMAL > or = 60 mg/dl - LO W CARDIOVASCULAR RISK <40 mg/dl - HIGH CARDIOVASCULAR RISK Normal [facility] Comment on above: Performed By: #### T SH, FT3 #### [facility] [address] [place] [address] Dr. Silvestre Williamson LDL CALC NORMAL SEE BELOW Normal [facility] Comment on above: Result Comment: <100 mg/dl OPTIMAL 100 - 129 mg/dl NEAR OR ABOVE OPTIMAL 130 - 159 mg/dl BORDERLINE HIGH 160 - 189 mg/dl HIGH >190 mg/dl VERY HIGH Performed By: #### T SH, FT3 #### [facility] [address] [place] [address] Dr. Silvestre Williamson Triglyceride [Mass/Vol] 42 mg/dL Normal <=150 [facility] Comment on above: Performed By: #### T NEGAR, FT3 #### [facility] [address] [place] [address] Dr. Silvestre Williamson VLDL CALC 8.4 mg/dL Normal [facility] Comment on above: Performed By: #### T SH, FT3 #### [facility] [address] [place] [address] Dr. Silvestre Williamson PROF 14(COMP METB)on 022 Albumin [Mass/Vol] 3.4 g/dL Normal 3.4-5.0 [facility] Comment on above: Performed By: #### T SH, FT3 #### [facility] [address] [place] [address] Dr. Silvestre Williamson Albumin/Globulin [Mass ratio] 1.0 {ratio} Normal [facility] Comment on above: Performed By: #### T NEGAR, FT3 #### [facility] [address] [place] [address] Dr. Silvestre Williamson ALP [Catalytic activity/Vol] 62 U/L Normal 46-116 [facility] Comment on above: Performed By: #### T NEGAR, FT3 #### [facility] [address] [place] [address] Dr. Silvestre Williamson ALT [Catalytic activity/Vol] 25 U/L Normal 14-59 [facility] Comment on above: Performed By: #### T NEGAR, FT3 #### [facility] [address] [place] [address] Dr. Silvestre Williamson Anion gap [Moles/Vol] 9.9 mmol/L Normal [facility] Comment on above: Performed By: #### T NEGAR, FT3 #### [facility] [address] [place] [address] Dr. Silvestre Williamson AST [Catalytic activity/Vol] 13 U/L Critically low 15-37 [facility] Comment on above: Performed By: #### T NEGAR, FT3 #### [facility] [address] [place] [address] Dr. Silvestre Williamson Bilirubin [Mass/Vol] 0.4 mg/dL Normal 0.2-1.0 [facility] Comment on above: Performed By: #### T NEGAR, FT3 #### [facility] [address] [place] [address] Dr. Silvestre Williamson Calcium [Mass/Vol] 9.2 mg/dL Normal 8.5-10.1 [facility] Comment on above: Performed By: #### T NEGAR, FT3 #### [facility] [address] [place] [address] Dr. Silvestre Williamson Chloride [Moles/Vol] 104 mmol/L Normal 98-107 [facility] Comment on above: Performed By: #### T NEGAR, FT3 #### [facility] [address] [place] [address] Dr. Silvestre Williamson CO2 [Moles/Vol] 31.6 mmol/L Normal 21.0-32.0 [facility] Comment on above: Performed By: #### T SH, FT3 #### [facility] [address] [place] [address] Dr. Silvestre Williamson Creatinine [Mass/Vol] 0.83 mg/dL Normal 0.55-1.02 [facility] Comment on above: Performed By: #### T SH, FT3 #### [facility] [address] [place] [address] Dr. Silvestre Williamson EGFR-AF KOSOVAN >60 Normal >=60 [facility] Comment on above: Performed By: #### T SH, FT3 #### [facility] [address] [place] [address] Dr. Silvestre Williamson EGFR-NON AF KOSOVAN >60 Normal >=60 [facility] Comment on above: Performed By: #### T NEGAR, FT3 #### [facility] [address] [place] [address] Dr. Silvestre Williamson Globulin (S) [Mass/Vol] 3.5 g/dL Normal [facility] Comment on above: Performed By: #### T SH, FT3 #### [facility] [address] [place] [address] Dr. Silvestre Williamson Glucose [Mass/Vol] 96 mg/dL Normal 74-106 [facility] Comment on above: Performed By: #### T NEGAR, FT3 #### [facility] [address] [place] [address] Dr. Silvestre Williamson Potassium [Moles/Vol] 4.5 mmol/L Normal 3.5-5.1 [facility] Comment on above: Performed By: #### T SH, FT3 #### [facility] [address] [place] [address] Dr. Silvestre Williamson Protein [Mass/Vol] 6.9 g/dL Normal 6.4-8.2 [facility] Comment on above: Performed By: #### T SH, FT3 #### [facility] [address] [place] [address] Dr. Silvestre Williamson Sodium [Moles/Vol] 141 mmol/L Normal 136-145 [facility] Comment on above: Performed By: #### T SH, FT3 #### [facility] [address] [address] [address] Silvestre Williamson Urea nitrogen [Mass/Vol] 11.0 mg/dL Normal 7.0-18.0 [facility] Comment on above: Performed By: #### T SH, FT3 #### [facility] [address] [address] [address] Silvestre Williamson Urea nitrogen/Creatinin e [Mass ratio] 13.3 mg/mg Normal [facility] Comment on above: Performed By: #### T SH, FT3 #### [facility] [address] [address] [address] [facility]vest[facility] CNPN Telephone (HEMASA) ROSANGELAYANET ([id number]) 1940 F Date Time Provider Department 03/01/22 NATALY BATISTA During your visit today, we recorded the following information about you: Nataly Batista RN 03/01/2022 1:46 PM Signed Received call from Yamilet at [facility] Scheduling stating pt is scheduled for mammogram there but order is for screening and pt is less than 5 years out from her breast cancer so they would like dx ria order. MOR: Order pending. Please review and sign if agreeable. BORA Siddiqi RN 03/01/2022 3:43 PM Signed Order faxed. 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 - MULTI-VITAMIN ORAL Refill(s) 0 - azelastine (ASTELIN) 0.1% nasal spray azelastine 137 mcg (0.1 %) nasal spray aerosol USE 2 SPRAYS IN EACH NOSTRIL TWICE A DAY PRN - buPROPion SR (ZYBAN SR; WELLBUTRIN SR) 150 mg 12 hr tablet TAKE 1 TABLET BY MOUTH EVERY DAY IN THE MORNING - estradiol (ESTRACE) 0.01 % (0.1 mg/gram) vaginal cream INSERT ONE GRAM VAGINALLY THREE TIMES WEEKLY - thyroid, pork, (RECRUITING COORDINATOR THYROID) 60 mg RECRUITING COORDINATOR Thyroid 60 mg tablet TAKE 1 TABLET BY MOUTH TWICE A DAY ON EMPTY STOMACH - sucralfate (CARAFATE) 1 gram tablet Carafate 1 gram tablet Take 1 tablet twice a day by oral route. - CALCIUM CITRATE ORAL Take by mouth. - anastrozole (ARIMIDEX) 1 mg tablet Take 1 tablet by mouth once daily. - Fexofenadine-Pseudoephe drine (BENITA-D 24 HOUR) 180-240 mg per 24 hr tablet Take 1 tablet by mouth once daily. - KAROLINA ASPIRIN ORAL Take by mouth. - cholecalciferol, vitamin D3, (D-3-5 ORAL) Take by mouth. - biotin 5 mg tab Take 5 mg by mouth once daily. - calcium carbonate/vitamin D2 ([id number] ORAL) Take by mouth. - Magnesium 250 mg tab Take 250 mg by mouth. - simvastatin (ZOCOR) 10 mg tablet Take 10 mg by mouth daily at bedtime. - verapamil ER (VERELAN) 240 mg 24 hr capsule Take 240 mg by mouth daily at bedtime. - PARoxetine (PAXIL) 20 mg tablet Take 20 mg by mouth once daily. - ranitidine (ZANTAC) 150 mg tablet 150 mg once daily. 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 CLIA [id number] [address] [place] [address] 47973 Basophils/100 WBC (Bld) 0.5 % Normal [facility] Comment on above: Order Comment: Speci men Type: BLOOD SPECIMEN Ordering Facility: [facility] Address: [address] [place] [address] Performed By: #### 5 7021-8 #### [facility] CLIA [id number] [address] [place] [address] 84754 Differential cell count method Nom (Bld) Auto Normal [facility] Comment on above: Order Comment: Speci men Type: BLOOD SPECIMEN Ordering Facility: [facility] Address: [address] [address] Performed By: #### 5 7021-8 #### [facility] CLIA [id number] [address] [place] [address] 00875 Eosinophils (Bld) [#/Vol] 0.20 10*3/uL Normal <0.46 [facility] Comment on above: Order Comment: Speci men Type: BLOOD SPECIMEN Ordering Facility: [facility] Address: [address] [place] [address] Performed By: #### 5 7021-8 #### [facility] CLIA [id number] [address] [place] [address] 01919 Eosinophils/100 WBC (Bld) 3.0 % Normal [facility] Comment on above: Order Comment: Speci men Type: BLOOD SPECIMEN Ordering Facility: [facility] Address: [address] [place] [address] Performed By: #### 5 7021-8 #### [facility] CLIA [id number] [address] [place] [address] 32973 Erythrocyte distribution width (RBC) [Ratio] 14.1 % Normal 11.5-15.0 [facility] Comment on above: Order Comment: Speci men Type: BLOOD SPECIMEN Ordering Facility: [facility] Address: [address] [place] [address] Performed By: #### 5 7021-8 #### [facility] CLIA [id number] [address] [place] [address] 63095 Hematocrit (Bld) [Volume fraction] 40.6 % Normal 36.0-46.0 [facility] Comment on above: Order Comment: Speci men Type: BLOOD SPECIMEN Ordering Facility: [facility] Address: [address] [place] [address] Performed By: #### 5 7021-8 #### [facility] CLIA [id number] [address] [place] [address] 29173 Hemoglobin (Bld) [Mass/Vol] 13.3 g/dL Normal 11.5-15.5 [facility] Comment on above: Order Comment: Speci men Type: BLOOD SPECIMEN Ordering Facility: [facility] Address: [address] [address] Performed By: #### 5 7021-8 #### [facility] CLIA [id number] [address] [place] [address] IMMATURE GRAN % 0.2 % Normal [facility] Comment on above: Order Comment: Speci men Type: BLOOD SPECIMEN Ordering Facility: [facility] Address: [address] [place] [address] Performed By: #### 5 7021-8 #### [facility] CLIA [id number] [address] [place] [address] 47295 IMMATURE GRAN ABS <0.03 Normal <0.10 [facility] Comment on above: Order Comment: Speci men Type: BLOOD SPECIMEN Ordering Facility: [facility] Address: [address] [place] [address] Performed By: #### 5 7021-8 #### [facility] CLIA [id number] [address] [place] [address] 10359 Lymphocytes (Bld) [#/Vol] 1.62 10*3/uL Normal 1.00-4.00 [facility] Comment on above: Order Comment: Speci men Type: BLOOD SPECIMEN Ordering Facility: [facility] Address: [address] [place] [address] Performed By: #### 5 7021-8 #### [facility] CLIA [id number] [address] [place] [address] 71863 Lymphocytes/100 WBC (Bld) 24.5 % Normal [facility] Comment on above: Order Comment: Speci men Type: BLOOD SPECIMEN Ordering Facility: [facility] Address: [address] [place] [address] Performed By: #### 5 7021-8 #### [facility] CLIA [id number] [address] [place] [address] 08383 MCH (RBC) [Entitic mass] 30.9 pg Normal 26.0-34.0 [facility] Comment on above: Order Comment: Speci men Type: BLOOD SPECIMEN Ordering Facility: [facility] Address: [address] [place] [address] Performed By: #### 5 7021-8 #### [facility] CLIA [id number] [address] [place] [address] 00677 MCHC (RBC) [Mass/Vol] 32.8 g/dL Normal 30.5-36.0 [facility] Comment on above: Order Comment: Speci men Type: BLOOD SPECIMEN Ordering Facility: [facility] Address: [address] [place] [address] Performed By: #### 5 7021-8 #### [facility] CLIA [id number] [address] [place] [address] 52904 MCV (RBC) [Entitic vol] 94.2 fL Normal 80.0-100.0 [facility] Comment on above: Order Comment: Speci men Type: BLOOD SPECIMEN Ordering Facility: [facility] Address: [address] [place] [address] Performed By: #### 5 7021-8 #### [facility] CLIA [id number] [address] [place] [address] 52455 Monocytes (Bld) [#/Vol] 0.49 10*3/uL Normal <0.87 [facility] Comment on above: Order Comment: Speci men Type: BLOOD SPECIMEN Ordering Facility: [facility] Address: [address] [place] [address] Performed By: #### 5 7021-8 #### [facility] CLIA [id number] [address] [place] [address] 90352 Monocytes/100 WBC (Bld) 7.4 % Normal [facility] Comment on above: Order Comment: Speci men Type: BLOOD SPECIMEN Ordering Facility: [facility] Address: [address] [place] [address] Performed By: #### 5 7021-8 #### [facility] CLIA [id number] [address] [place] [address] 98650 Neutrophils (Bld) [#/Vol] 4.25 10*3/uL Normal 1.45-7.50 [facility] Comment on above: Order Comment: Speci men Type: BLOOD SPECIMEN Ordering Facility: [facility] Address: [address] [place] [address] Performed By: #### 5 7021-8 #### [facility] CLIA [id number] [address] [place] [address] 02940 Neutrophils/100 WBC (Bld) 64.4 % Normal [facility] Comment on above: Order Comment: Speci men Type: BLOOD SPECIMEN Ordering Facility: [facility] Address: [address] [place] [address] Performed By: #### 5 7021-8 #### [facility] CLIA [id number] [address] [place] [address] 36399 Nucleated RBC (Bld) [#/Vol] 10*3/uL Normal <0.01 [facility] Comment on above: Order Comment: Speci men Type: BLOOD SPECIMEN Ordering Facility: [facility] Address: [address] [place] [address] Performed By: #### 5 7021-8 #### [facility] CLIA [id number] [address] [place] [address] 28161 Nucleated RBC/100 WBC (Bld) [Ratio] 0.0 /100 WBC Normal [facility] Comment on above: Order Comment: Speci men Type: BLOOD SPECIMEN Ordering Facility: [facility] Address: [address] [place] [address] Performed By: #### 5 7021-8 #### [facility] CLIA [id number] [address] [place] [address] 56413 Platelet mean volume (Bld) [Entitic vol] 9.8 fL Normal 9.0-12.7 [facility] Comment on above: Order Comment: Speci men Type: BLOOD SPECIMEN Ordering Facility: [facility] Address: [address] [address] Performed By: #### 5 7021-8 #### [facility] CLIA [id number] [address] [place] [address] 74439 Platelets (Bld) [#/Vol] 222 10*3/uL Normal 150-400 [facility] Comment on above: Order Comment: Speci men Type: BLOOD SPECIMEN Ordering Facility: [facility] Address: [address] [place] [address] Performed By: #### 5 7021-8 #### [facility] CLIA [id number] [address] [place] [address] 89361 RBC (Bld) [#/Vol] 4.31 10*6/uL Normal 3.90-5.20 [facility] Comment on above: Order Comment: Speci men Type: BLOOD SPECIMEN Ordering Facility: [facility] Address: [address] [place] [address] Performed By: #### 5 7021-8 #### [facility] IA [id number] [address] [place] [address] 33208 WBC (Bld) [#/Vol] 6.60 10*3/uL Normal 3.70-11.00 [facility] Comment on above: Order Comment: Speci men Type: BLOOD SPECIMEN Ordering Facility: [facility] Address: [address] [place] [address] Performed By: #### 5 7021-8 #### [facility] IA [id number] [address] [place] [address] 47181 CNOVSPon 01-11-2022 CNOVSP Visit (SP) Office ([facility]) YANET ADAMES ([id number]) 1940 F Date Time Provider Department 01/11/22 1:00 PM PRANAV BERMUDEZ During your visit today, we recorded the following information about you: Temperature Pulse Respiration Blood pressure 97.1 degrees 81/minute 16/minute 131/79 Weight Height 62 kg 1.499 m Pranav Bermudez MD 01/11/2022 8:32 PM Signed NAME: Yanet Adames CLINIC NO.: [id number] DATE OF SERVICE: January 11, 2022 Some elements in this clinic note that are critical to medical decision making have been carefully reviewed and included from a prior clinic note dated: July 13, 2021 Referring Provider: Dr. Homero Moses CC: Follow up for diagnosis ASSESSMENT: 1. 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 She is tolerating anastrozole well. She has no evidence of disease recurrence. We briefly discussed the role of Prolia in prevention of osteoporosis and fracture. I have requested reports of both her mammogram and dexa scan to review. Currently on Prolia. No evidence of diseaes 2. Osteopenia of spine The last Dexa report I have is from 2013. I will review her current report when it is available to me, and make recommendations based on the findings. She is currently on calcium and vitamin D supplements She was intolerant to zolendronic acid, will try Prolia q 6 months. PLAN: 1. Prolia today then again in 6 months when she returns. 2. Mammograms scheduled already to be scheduled by patient December 2021 3. Continue Arimidex 4. RTC in 6 months labs same day. TREATMENT TO DATE: 04/2018-current: Anastrazole 2. 03/05/2018-04/22/2018 Radiation to right breast 6120 cGy 1. 01/24/2018 Right Lumpectomy and axillary node excision HPI: Updated Visit, January 11, 2022: Yanet returns and is doing very well on Anastrazole and returns for Prolia q 6 months. She is overdue for mammograms and breast exam but she will complete these with Dr. Moses next month. Labs are stable and she is taking calcium with vitamin D. Has a knot on the right scalp near the vertex. On exam it raised and scabbed consistent with a non-melanoma skin tumor. Chaperoned breast exam with smaller right breast post lumpectomy otherwise benign and left breast is normal. Updated Visit, July 13, 2021: Yanet returns and is doing well on Arimidex in the adjuvant setting for an early stage (I) Right breast cancer involving the Lower outer quadrant ER +, s/p lumpectomy and radiation in 03/2018. Continues to tolerate endocrine therapy well. However, she has significant osteopenia and 6 months ago, patient had Reclast (zolendronic acid) in 12/2020 and ended up in the ER extremely sick. We will try Prolia. Updated Visit, January 12, 2021: Patient returns for follow up on Anastrazole. Tolerating it well. Did have a mammogram and dexa scan within the last month. I do not have reports, but she says she was told she has osteoporosis and her PCP advised she take calcium and vitamin D and do exercises. She is not on bisphosphonates. She has had no new complaints or problems. Updated Visit, May 05, 2020: Yanet Adames is a 79 year old female who presents in follow up. She is on Anastrazole. She is tolerating it well. She denies any joint complaints. She had her last mammogram in December 10, 2019 and it did not reveal any signs of malignancy. She tells me that her diagnosis was found originally in [place] after which she decided to move up here permanently. Her is retired from [employer]. ? Some background history that are reviewed today reveals that she originally presented in consultation 02/06/18 with a new diagnosis of breast cancer. She was taken to lumpectomy 01/24/18 with the finding of a 2 cm sized ER and IN positive, HER 2 negative breast cancer. 0/5 nodes involved, grade II. She completed radiation to the right breast in March 2018 and started anastrazole as well. ? RADIOGRAPHIC DATA: Reviewed on January 12, 2021 3. 2020 Mammogram and dexa---requesting reports to review 2. 12/10/2019 Bilateral Diagnostic Mammogram: Birads 2--benign findings. 1.06/16/14 Dexa scan: osteopenia of spine and hip T scores -1.5, -1.7 PATHOLOGIC PROFILE/MOLECULAR DATA: Reviewed on January 12, 2021 1. 01/24/2018-- right axillary node excision and lumpectomy 2cm ER/IN positive 100%/80%, Her2 negative by FISH right breast invasive mammary carcinoma with ductal and lobular features, grade 2, 0 of 5 lymph nodes T1c, N0 REVIEW OF SYSTEMS Per HPI and otherwise negative by full review of organ systems. ECOG PERFORMANCE STATUS: 0 PHYSICAL EXAMINATION: Vitals: BP 131/79 Pulse 81 Temp (Src) 97.1 (Temporal) Resp 16 Ht 4' 11.016 (1.50m) Wt 13 (more content not included)... Normal [facility] Comprehensive metabolic 2000 panelon 01-11-2022 Albumin [Mass/Vol] 4.4 g/dL Normal 3.9-4.9 [facility] Comment on above: Order Comment: Speci men Type: BLOOD SPECIMEN Ordering Facility: [facility] Address: [address] [place] [address] Performed By: #### 2 4323-8 #### [facility] CLIA [id number] [address] [place] [address] 68551 ALP [Catalytic activity/Vol] 61 U/L Normal 34-123 [facility] Comment on above: Order Comment: Speci men Type: BLOOD SPECIMEN Ordering Facility: [facility] Address: [address] [place] [address] Performed By: #### 2 4323-8 #### [facility] CLIA [id number] [address] [place] [address] 90546 ALT [Catalytic activity/Vol] 12 U/L Normal 7-38 [facility] Comment on above: Order Comment: Speci men Type: BLOOD SPECIMEN Ordering Facility: [facility] Address: [address] [place] [address] Performed By: #### 2 4323-8 #### [facility] CLIA [id number] [address] [place] [address] 55231 Anion gap [Moles/Vol] 6 mmol/L Low 9-18 [facility] Comment on above: Order Comment: Speci men Type: BLOOD SPECIMEN Ordering Facility: [facility] Address: [address] Performed By: #### 2 4323-8 #### [facility] CLIA [id number] [address] [place] [address] AST [Catalytic activity/Vol] 14 U/L Normal 13-35 [facility] Comment on above: Order Comment: Speci men Type: BLOOD SPECIMEN Ordering Facility: [facility] Address: [address] [address] Performed By: #### 2 4323-8 #### [facility] CLIA [id number] [address] [place] [address] Bilirubin [Mass/Vol] 0.3 mg/dL Normal 0.2-1.3 [facility] Comment on above: Order Comment: Speci men Type: BLOOD SPECIMEN Ordering Facility: [facility] Address: [address] [place] [address] Performed By: #### 2 4323-8 #### [facility] CLIA [id number] [address] [place] [address] 55691 Calcium [Mass/Vol] 9.8 mg/dL Normal 8.5-10.2 [facility] Comment on above: Order Comment: Speci men Type: BLOOD SPECIMEN Ordering Facility: [facility] Address: [address] [place] [address] Performed By: #### 2 4323-8 #### [facility] CLIA [id number] [address] [place] [address] 71804 Chloride [Moles/Vol] 103 mmol/L Normal 97-105 [facility] Comment on above: Order Comment: Speci men Type: BLOOD SPECIMEN Ordering Facility: [facility] Address: [address] [place], [place] [address] Performed By: #### 2 4323-8 #### [facility] CLIA [id number] [address] [place] [address] 20151 CO2 [Moles/Vol] 27 mmol/L Normal 22-30 [facility] Comment on above: Order Comment: Speci men Type: BLOOD SPECIMEN Ordering Facility: [facility] Address: [address] [place] [address] Performed By: #### 2 4323-8 #### [facility] CLIA [id number] [address] [place] [address] 44450 Creatinine [Mass/Vol] 0.93 mg/dL Normal 0.58-0.96 [facility] Comment on above: Order Comment: Speci men Type: BLOOD SPECIMEN Ordering Facility: [facility] Address: [address] [place] [address] Performed By: #### 2 4323-8 #### [facility] CLIA [id number] [address] [place] [address] 63806 ESTIMATED GLOMERULAR FILTRATION RATE 62 mL/min/1.73m??? Normal >=60 [facility] Comment on above: Order Comment: Josei men Type: BLOOD SPECIMEN Ordering Facility: [facility] Address: [address] [place] [address] Result Comment: Mag mated Glomerular Filtration Rate (eGFR) is calculated using the 2020 CKD-EPI creatinine equation. This equation utilizes serum creatinine, sex, and age as parameters. The creatinine assay has traceable calibration to isotope dilution-mass spectrometry. Refer to KDIGO guidelines for clinical interpretation. In patients with unstable renal function, e.g. those with acute kidney injury, the eGFR may not accurately reflect actual GFR. Performed By: #### 2 4323-8 #### [facility] CLIA [id number] [address] [place] [address] 30308 Glucose [Mass/Vol] 97 mg/dL Normal 74-99 [facility] Comment on above: Order Comment: Josei wilmer Type: BLOOD SPECIMEN Ordering Facility: [facility] Address: [address] [place] [address] Result Comment: The [place] [employer] (ADA) provides guidance for cutoff values for fasting glucose and random glucose. The ADA defines fasting as no caloric intake for at least 8 hours. Fasting plasma glucose results between 100 to 125 mg/dL indicate increased risk for diabetes (prediabetes). Fasting plasma glucose results greater than or equal to 126 mg/dL meet the criteria for diagnosis of diabetes. In the absence of unequivocal hyperglycemia, results should be confirmed by repeat testing. In a patient with classic symptoms of hyperglycemia or hyperglycemic crisis, random plasma glucose results greater than or equal to 200 mg/dL meet the criteria for diagnosis of diabetes. Reference: Standards of Medical Care in Diabetes 2016, [place] [employer]. Diabetes Care. 2016.39(Suppl 1). Performed By: #### 2 4323-8 #### [facility] CLIA [id number] [address] [place] [address] Potassium [Moles/Vol] 4.1 mmol/L Normal 3.7-5.1 [facility] Comment on above: Order Comment: Speci men Type: BLOOD SPECIMEN Ordering Facility: [facility] Address: [address] [place] [address] Performed By: #### 2 4323-8 #### [facility] CLIA [id number] [address] [place] [address] 92201 Protein [Mass/Vol] 7.2 g/dL Normal 6.3-8.0 [facility] Comment on above: Order Comment: Speci men Type: BLOOD SPECIMEN Ordering Facility: [facility] Address: [address] [place] [address] Performed By: #### 2 4323-8 #### [facility] CLIA [id number] [address] [place] [address] 11142 Sodium [Moles/Vol] 136 mmol/L Normal 136-144 [facility] Comment on above: Order Comment: Speci men Type: BLOOD SPECIMEN Ordering Facility: [facility] Address: [address] [place] [address] Performed By: #### 2 4323-8 #### [facility] CLIA [id number] [address] [place] [address] 93603 Urea nitrogen [Mass/Vol] 25 mg/dL High 7-21 [facility] Comment on above: Order Comment: Speci men Type: BLOOD SPECIMEN Ordering Facility: [facility] Address: [address] [place] [address] Performed By: #### 2 4323-8 #### [facility] CLIA [id number] [address] [place] [address] 15230 Maureen 01-03-2022 CNPN Telephone ([place]) ROSANGELAYANET ([id number]) 1940 F Date Time Provider Department 01/03/22 PRANAV BERMUDEZ During your visit today, we recorded the following information about you: Kellen Parmar 01/03/2022 10:38 AM Signed Patient scheduled to see you on Saturday01/12/22 for follow up/prolia. Please add lab orders. Thanks, AMAYA Case MD 01/04/2022 5:01 PM Signed Addended by: PRANAV BERMUDEZ on: 01/04/2022 05:01 PM Modules accepted: Orders Allergies As of Date: 01/03/2022 Noted Allergy Reaction MILK 06/04/2018 11 - Vomiting PERCOCET (OXYCODONE-ACETAMINOPHE N)02/06/2018 1 - Mental Status Change Comments: makes me crazy SOY 06/04/2018 16 - Unknown Date Reviewed: 07/13/2021 Reviewed by: Pranav Bermudez MD - Fully Assessed Reason for Visit: Lab Orders [1688] Primary Visit Diagnosis:Malignant neoplasm of lower-outer quadrant of right female breast, unspecified estrogen receptor status (HCC) [C50.511] Other Visit Diagnosis:Encounter for screening for osteoporosis [Z13.820] Order(s):CBC + DIFF [SQCBCDIF] Order #: [id number] FUTURE COMP METABOLIC PANEL [SQCMP] Order #: [id number] FUTURE Prescriptions as of 01/04/2022 - anastrozole (ARIMIDEX) 1 mg tablet TAKE 1 TABLET BY MOUTH EVERY DAY - solifenacin (VESICARE) 5 mg tablet TAKE 1 TABLET BY MOUTH DAILY FOR 2 WEEKS THEN INCREASE TO 2 TABLETS DAILY TOLERATING SIDE EFFECTS - STRONTIUM [id number] ORAL Take by mouth. - MULTI-VITAMIN ORAL Refill(s) 0 - azelastine (ASTELIN) 0.1% nasal spray azelastine 137 mcg (0.1 %) nasal spray aerosol USE 2 SPRAYS IN EACH NOSTRIL TWICE A DAY PRN - buPROPion SR (ZYBAN SR; WELLBUTRIN SR) 150 mg 12 hr tablet TAKE 1 TABLET BY MOUTH EVERY DAY IN THE MORNING - estradiol (ESTRACE) 0.01 % (0.1 mg/gram) vaginal cream INSERT ONE GRAM VAGINALLY THREE TIMES WEEKLY - thyroid, pork, (RECRUITING COORDINATOR THYROID) 60 mg RECRUITING COORDINATOR Thyroid 60 mg tablet TAKE 1 TABLET BY MOUTH TWICE A DAY ON EMPTY STOMACH - sucralfate (CARAFATE) 1 gram tablet Carafate 1 gram tablet Take 1 tablet twice a day by oral route. - CALCIUM CITRATE ORAL Take by mouth. - anastrozole (ARIMIDEX) 1 mg tablet Take 1 tablet by mouth once daily. - Fexofenadine-Pseudoephe drine (BENITA-D 24 HOUR) 180-240 mg per 24 hr tablet Take 1 tablet by mouth once daily. - KAROLINA ASPIRIN ORAL Take by mouth. - cholecalciferol, vitamin D3, (D-3-5 ORAL) Take by mouth. - biotin 5 mg tab Take 5 mg by mouth once daily. - calcium carbonate/vitamin D2 ([id number]-100-N ORAL) Take by mouth. - Magnesium 250 mg tab Take 250 mg by mouth. - simvastatin (ZOCOR) 10 mg tablet Take 10 mg by mouth daily at bedtime. - verapamil ER (VERELAN) 240 mg 24 hr capsule Take 240 mg by mouth daily at bedtime. - PARoxetine (PAXIL) 20 mg tablet Take 20 mg by mouth once daily. - ranitidine (ZANTAC) 150 mg tablet 150 mg once daily. DIRECTED Meds Comments as of 04/01/2018: Natural Thyroid Problem List As Of Date 01/03/2022 Noted Resolved Malignant neoplasm of right breast in female, e*02/06/2018 Age-related osteoporosis without current pathol*01/12/2021 Encounter Status:Closed by December on 01/03/22 [facility] CNOVSPon 07-13-2021 CNOVSP Visit (SP) Office (HE[place]AS[place]) YANET ADAMES ([id number]) 1940 F Date Time Provider Department 07/13/21 10:45 AM PRANAV BERMUDEZ During your visit today, we recorded the following information about you: Temperature Pulse Respiration Blood pressure 97 degrees 91/minute 16/minute 151/80 Weight Height 59.1 kg 1.499 m Pranav Bermudez MD 07/13/2021 1:04 PM Signed NAME: Yanet Adames CLINIC NO.: [id number] DATE OF SERVICE: July 13, 2021 Some elements in this clinic note that are critical to medical decision making have been carefully reviewed and included from a prior clinic note dated: January 12, 2021 Referring Provider: Dr. Homero Moses CC: I am here for my follow up ASSESSMENT: 1. 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 She is tolerating anastrozole well. She has no evidence of disease recurrence. We briefly discussed the role of Prolia in prevention of osteoporosis and fracture. I have requested reports of both her mammogram and dexa scan to review. Based on my findings of these reports, I may recommend Prolia. 2. Osteopenia of spine The last Dexa report I have is from 2013. I will review her current report when it is available to me, and make recommendations based on the findings. She is currently on calcium and vitamin D supplements She was intolerant to zolendronic acid, will try Prolia q 6 months. PLAN: 1. Prolia in 10 days when approved and then in 6 months when she returns. 2. Mammograms scheduled already in December 2021 3. RTC after mammograms for labs, visit with exam followed by Stephanie 4. Continue Arimidex TREATMENT TO DATE: 04/2018-current: Anastrazole 2. 03/05/2018-04/22/2018 Radiation to right breast 6120 cGy 1. 01/24/2018 Right Lumpectomy and axillary node excision HPI: Updated Visit, July 13, 2021: Yanet returns and is doing well on Arimidex in the adjuvant setting for an early stage (I) Right breast cancer involving the Lower outer quadrant ER +, s/p lumpectomy and radiation in 03/2018. Continues to tolerate endocrine therapy well. However, she has significant osteopenia and 6 months ago, patient had Reclast (zolendronic acid) in 12/2020 and ended up in the ER extremely sick. We will try Prolvicente. Updated Visit, January 12, 2021: Patient returns for follow up on Anastrazole. Tolerating it well. Did have a mammogram and dexa scan within the last month. I do not have reports, but she says she was told she has osteoporosis and her PCP advised she take calcium and vitamin D and do exercises. She is not on bisphosphonates. She has had no new complaints or problems. Updated Visit, May 05, 2020: Yanet Adames is a 79 year old female who presents in follow up. She is on Anastrazole. She is tolerating it well. She denies any joint complaints. She had her last mammogram in December 10, 2019 and it did not reveal any signs of malignancy. She tells me that her diagnosis was found originally in [place] after which she decided to move up here permanently. Her is retired from [employer]. ? Some background history that are reviewed today reveals that she originally presented in consultation 02/06/18 with a new diagnosis of breast cancer. She was taken to lumpectomy 01/24/18 with the finding of a 2 cm sized ER and IN positive, HER 2 negative breast cancer. 0/5 nodes involved, grade II. She completed radiation to the right breast in March 2018 and started anastrazole as well. ? RADIOGRAPHIC DATA: Reviewed on January 12, 2021 3. 2020 Mammogram and dexa---requesting reports to review 2. 12/10/2019 Bilateral Diagnostic Mammogram: Birads 2--benign findings. 1.06/16/14 Dexa scan: osteopenia of spine and hip T scores -1.5, -1.7 PATHOLOGIC PROFILE/MOLECULAR DATA: Reviewed on January 12, 2021 1. 01/24/2018-- right axillary node excision and lumpectomy 2cm ER/IN positive 100%/80%, Her2 negative by FISH right breast invasive mammary carcinoma with ductal and lobular features, grade 2, 0 of 5 lymph nodes T1c, N0 REVIEW OF SYSTEMS Per HPI and otherwise negative by full review of organ systems. ECOG PERFORMANCE STATUS: 0 PHYSICAL EXAMINATION: Vitals: BP 151/80 Pulse 91 Temp (Src) 97 (Temporal) Resp 16 Ht 4' 11.016 (1.50m) Wt 130 lb 3.2 oz (59.1kg) SpO2 96% BMI 26.28 kg/(m2). Body surface area is 1.57 meters squared. Exam limited to gross visualization where appropriate due to COVID-19. Gen.: This is an age-appropriate patient in no acute distress. Head: Appears atraumatic with no visible lesions. Eyes: Pupils equally round and reactive to light, extraocular muscles are intact. Neck: Supple. Mouth: Mucous membranes appeared to be moist. Respiratory: Appears to be respirin (more content not included)... Normal [facility] MRI BRAIN WO/W IVCONon 04-28 MRI BRAIN WO/W IVCON * * *Final Report* * * DATE OF EXAM: Apr 28 2021 10:09AM LNM [id number] - MRI BRAIN WO/W IVCON / PROCEDURE REASON: Diplopia * * * * Physician Interpretation * * * * MRI OF THE BRAIN AND ORBITS WITHOUT AND WITH CONTRAST History: Breast carcinoma status post lumpectomy radiation and chemotherapy. Peripheral visual field abnormality on my examination. Had corrective surgery for strabismus at 38.. Technique: BRAIN: Diffusion, axial T2, axial FLAIR, postcontrast axial T1. ORBIT: Fat-saturated high-resolution coronal T2 through the orbits, pre-and postcontrast fat-saturated high-resolution coronal and axial T1 through the orbits, precontrast high resolution coronal T1 orbits and skull base. MQ: [id number] Contrast: 11 mL Dotarem IV Results: Brain: There is no restricted diffusion on this exam to suggest an acute intracranial infarction. Postcontrast images show no evidence for an intra-axial mass or leptomeningeal disease. There is mild diffuse age appropriate volume loss and moderate patchy hyperintensity and T2 and FLAIR in the deep white matter compatible chronic small vessel ischemic changes. There is no cortical encephalomalacia. There is no hydrocephalus, midline shift or herniation. There is susceptibility artifact anterior to the C3 vertebra consistent with prior cervical fusion. Orbits/skull base: High-resolution images the skull base shows small area of dural thickening enhancement abutting the dorsal right orbital frontal lobe measuring 10 x 4 x 9 mm in size (series 9 image 18 and series 10 image 18) consistent with the small meningioma. There is no edema and adjacent right orbital frontal lobe. This meningioma touches the lateral superior aspect of the right prechiasmatic optic nerve (series 9 image 18). The globes, extraocular muscles, optic nerves, lacrimal glands, optic chiasm and optic tracts are symmetric and normal in appearance. There is no pathologic enhancement along the optic pathways. IAC, CP angles, Meckel's caves and cavernous sinuses as well as the prepontine cistern are normal in appearance. Sella and suprasellar cistern are normal. Mastoid air cells, middle ear cavities and visualized paranasal sinuses are grossly clear. IMPRESSION: NORMAL MRI OF THE BRAIN WITHOUT AND WITH CONTRAST FOR AGE. NO EVIDENCE OF AN ACUTE INTRACRANIAL INFARCTION. INCIDENTALLY NOTED SMALL MENINGIOMA ALONG THE DORSAL ASPECT OF THE RIGHT ANTERIOR CRANIAL FOSSA WHICH TOUCHES THE LATERAL SUPERIOR ASPECT OF THE RIGHT PRECHIASMATIC OPTIC NERVE IT ENTERS OPTIC CANAL. HIGH-RESOLUTION IMAGES THROUGH THE ORBITS AND SKULL BASE ARE OTHERWISE NORMAL IN APPEARANCE WITHOUT PATHOLOGIC ENHANCEMENT. Spiral Winder: [facility] Transcribe Date/Time: Apr 28 2021 10:16A Dictated by : YURIY RODGERS MD This examination was interpreted and the report reviewed and electronically signed by: YURIY RODGERS MD on Apr 28 2021 10:20AM EST [id number] Normal [facility] CNOVon 04-14-2021 CNOV Office Visit (NEMN ) YNAET ADAMES ([id number]) 1940 F Date Time Provider Department 04/14/21 3:00 PM OCT EXAM READ NEMSMN During your visit today, we recorded the following information about you: Nisreen De La Cruz MA 04/14/2021 3:24 PM Signed OCT completed per Epic order Nisreen De La Cruz CMA April 14, 2021 3:23 PM Referring Provider: MARCUS MUNOZ [[id number]] Allergies As of Date: 04/14/2021 Noted Allergy Reaction MILK 06/04/2018 11 - Vomiting PERCOCET (OXYCODONE-ACETAMINOPHE N)02/06/2018 1 - Mental Status Change Comments: makes me crazy SOY 06/04/2018 16 - Unknown Date Reviewed: 04/14/2021 Reviewed by: Leatha Napoles MA - Fully Assessed Primary Visit Diagnosis: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] Prescriptions as of 04/30/2021 - MULTI-VITAMIN ORAL Refill(s) 0 - azelastine (ASTELIN) 0.1% nasal spray azelastine 137 mcg (0.1 %) nasal spray aerosol USE 2 SPRAYS IN EACH NOSTRIL TWICE A DAY PRN - buPROPion SR (ZYBAN SR; WELLBUTRIN SR) 150 mg 12 hr tablet TAKE 1 TABLET BY MOUTH EVERY DAY IN THE MORNING - estradiol (ESTRACE) 0.01 % (0.1 mg/gram) vaginal cream INSERT ONE GRAM VAGINALLY THREE TIMES WEEKLY - thyroid, pork, (RECRUITING COORDINATOR THYROID) 60 mg RECRUITING COORDINATOR Thyroid 60 mg tablet TAKE 1 TABLET BY MOUTH TWICE A DAY ON EMPTY STOMACH - sucralfate (CARAFATE) 1 gram tablet Carafate 1 gram tablet Take 1 tablet twice a day by oral route. - CALCIUM CITRATE ORAL Take by mouth. - anastrozole (ARIMIDEX) 1 mg tablet Take 1 tablet by mouth once daily. - anastrozole (ARIMIDEX) 1 mg tablet Take 1 tablet by mouth once daily. - Fexofenadine-Pseudoephe drine (BENITA-D 24 HOUR) 180-240 mg per 24 hr tablet Take 1 tablet by mouth once daily. - KAROLINA ASPIRIN ORAL Take by mouth. - cholecalciferol, vitamin D3, (D-3-5 ORAL) Take by mouth. - biotin 5 mg tab Take 5 mg by mouth once daily. - calcium carbonate/vitamin D2 ([id number] ORAL) Take by mouth. - Magnesium 250 mg tab Take 250 mg by mouth. - oxybutynin XL (DITROPAN XL) 5 mg 24 hr tablet Take 5 mg by mouth twice daily. - simvastatin (ZOCOR) 10 mg tablet Take 10 mg by mouth daily at bedtime. - verapamil ER (VERELAN) 240 mg 24 hr capsule Take 240 mg by mouth daily at bedtime. - PARoxetine (PAXIL) 20 mg tablet Take 20 mg by mouth once daily. - ranitidine (ZANTAC) 150 mg tablet 150 mg once daily. DIRECTED Meds Comments as of 04/01/2018: Natural Thyroid Problem List As Of Date 04/14/2021 Noted Resolved Malignant neoplasm of right breast in female, e*02/06/2018 Age-related osteoporosis without current pathol*01/12/2021 Visit Notes: >> Nisreen De La Cruz MA [facility] Apr 14, 2021 3:23 PM Status: Signed OCT completed per Epic order Nisreen De La Cruz CMA April 14, 2021 3:23 PM Encounter Status:Closed by BRENDA JUNIOR on 04/30/21 [facility] CNOV Office Visit (KELVINN ) YANET ADAMES ([id number]) 1940 F Date Time Provider Department 04/14/21 2:00 PM MARCUS MUNOZ During your visit today, we recorded the following information about you: Pulse Blood pressure Weight Height 87/minute 149/51 57.2 kg 1.499 m Marcus Munoz MD 04/18/2021 8:42 AM Signed [facility] MULTIPLE SCLEROSIS NEW PATIENT EVALUATION/CONSULTATION Referral source: Shadia Barrera, OD [address] [place] [address] Also followed by: Patient Care Team: Homero Moses as PCP - General (Family Practice) Shadia Barrera DO as Referring (Optometry) PRINCIPAL NEUROLOGIC DIAGNOSIS: Double vision, visual field defect. DISEASE SUMMARY Date of onset: February 2021 Date of diagnosis of MS: Not applicable, no diagnosis of MS Disease course at onset: Monophasic Current disease course: Monophasic Previous disease therapies: None Current disease therapy: None Most recent MRI brain: None Most recent MRI cervical spine: None CSF: N/A JCV serology result and date: N/A HISTORY OF ILLNESS: An opinion on this 80 year old female was requested by the referring physician for evaluation regarding abnormal visual starkey testing. The patient was accompanied by her spouse. Previous records (physician notes, laboratory reports, and radiology reports) and imaging studies were reviewed and summarized. My recommendations will be communicated back to the patient's physician(s) via electronic medical record. Follow-up is expected to be with the patient's primary care physician. Yanet Adames is a 80 year old female with a past medical history of stage I ER/IN+ve HER-2neu -ve breast cancer s/p lumpectomy, radiation and adjuvant anastrazole, Hyppothyroidism, hypercholesterolemia, and osteoporosis. She presents today with a chief concern of abnormal visual starkey testing (perimetry). She was getting her routine eye examination when the photo print specialist/optomet rist who noted an abnormality on her exam. She states she was told that she failed her peripheral vision and the eye doctor was concerned for a stroke. The patient has not noticed any visual loss, new double vision. She has been falling going up stairs but does not know if she is hitting her foot on the steps. No problems with going downstairs though she does have to hold onto rails. No trouble driving as of yet, but has been brushing against the door frame at times. Never had episodes of transient or persistent vision loss, muscle weakness, loss of sensation, trouble with speech, or Onset 6-8 weeks ago. 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 Falls going up the stairs, no problem going downstairs. Once in a while she will brush by a door frame, Mood is OK, takes more naps than she used to. Not on HRT No ESTRADA. Neuro-Qol Functions (higher = better functioning) Neuro-Qol Symptoms (higher = worse symptoms) *NeuroQoL is a multi-domain patient-reported quality of life questionnaire. PHQ-9 Office Visit from 06/10/2019 in Radiation Oncology PHQ-9 Score 8 *PHQ-9 is a questionnaire for depressive symptoms, with scores 0-4 indicating none, 5-9 mild, 10-14 moderate, 15-19 moderately severe, and 20-27 severe symptoms. PROMIS-10 Office Visit from 06/10/2019 in Radiation Oncology Global Physical Health T Score 39.8 Global Mental Health T Score 45.8 0-10 Standard Pain Scale 2 *PROMIS-10 is a patient-reported quality of life measure, typically reported as physical and mental domains. Here scores are expressed as percentiles, where the lowest possible score is one, the highest possible score is 99, and 50 is average. PAST HISTORY: PAST MEDICAL HISTORY Diagnosis Date - Arrhythmia - Esophageal polyp - Esophageal ulcer - Hiatal hernia - Hypercholesteremia - Hypothyroid - Osteoporosis PAST SURGICAL HISTORY Procedure Laterality Date - APPENDECTOMY HX - CARPAL TUNNEL - HYSTERECTOMY HX - PAST SURGICAL HISTORY OF surgery to cervical spine x 2 - TONSILLECTOMY AND ADENOIDECTOMY HX - TUBAL LIGATION Transfusions: None Current Outpatient Medications Medication Sig - MULTI-VITAMIN ORAL Refill(s) 0 - azelastine (ASTELIN) 0.1% nasal spray azelastine 137 mcg (0.1 %) nasal spray aerosol USE 2 SPRAYS IN EACH NOSTRIL TWICE A DAY PRN - buPROPion SR (ZYBAN SR; WELLBUTRIN SR) 150 mg 12 hr tablet TAKE 1 TABLET BY MOUTH EVERY DAY IN THE MORNING - estradiol (ESTRACE) 0.01 % (0.1 mg/gram) vaginal cream INSERT ONE GRAM VAGINALLY THREE TIMES WEEKLY - thyroid, pork, (RECRUITING COORDINATOR THYROID) 60 mg RECRUITING COORDINATOR Thyroid 60 mg tablet TAKE 1 TABLET BY MOUTH TWICE A DAY ON EMPTY STOMACH - sucralfate (CARAFATE) 1 gram tablet Carafate 1 gram tablet Take 1 tablet twice a day by oral route. - CALCIUM CITRATE ORAL Take by mouth. (more content not included)... Normal [facility] Vital Signs Date Time Vital Sign Value Performing Clinician Facility 01-21-2024 15:09-0400 Blood Pressure Location NATHALIE ROBERT [facility] 01-21-2024 15:09-0400 Body temperature 98.06 [degF] NATHALIE ROBERT [facility] 01-21-2024 15:09-0400 Diastolic blood pressure 58 mm[Hg] NATHALIE ROBERT [facility] 01-21-2024 15:09-0400 Heart rate 84 /min NATHALIE ROBERT [facility] 01-21-2024 15:09-0400 Respiratory rate 16 /min NATHALIE ROBERT [facility] 01-21-2024 15:09-0400 Systolic blood pressure 112 mm[Hg] NATHALIE ROBERT [facility] 11-06-2023 11:02-0500 Body height 149.9 cm Homero Moses MD Work Phone: [facility] 11-06-2023 11:02-0500 Body mass index (BMI) [Ratio] 27.27 kg/m2 Homero Moses MD Work Phone: [facility] 11-06-2023 11:02-0500 Body weight 61.24 kg Homero Moses MD Work Phone: [facility] 01-16-2023 15:29-0400 Blood Pressure Location NATHALIE ROBERT [facility] 01-16-2023 15:29-0400 Diastolic blood pressure 74 mm[Hg] NATHALIE ROBERT [facility] 01-16-2023 15:29-0400 Heart rate 68 /min NATHALIE ROBERT [facility] 01-16-2023 15:29-0400 Respiratory rate 16 /min NATHALIE JONES [facility] 01-16-2023 15:29-0400 Systolic blood pressure 128 mm[Hg] NATHALIE JONES [facility] 10-10-2022 09:09-0500 Blood Pressure Location Milly Jolley [facility] 10-10-2022 09:09-0500 Diastolic blood pressure 70 mm[Hg] Milly Jolley [facility] 10-10-2022 09:09-0500 Heart rate 76 /min Milly Jolley [facility] 10-10-2022 09:09-0500 Respiratory rate 16 /min Milly Jolley [facility] 10-10-2022 09:09-0500 Systolic blood pressure 117 mm[Hg] Milly Jolley [facility] 01-11-2022 12:33-0400 Body height 149.9 cm Pranav Bermudez MD Work Phone: [facility] 01-11-2022 12:33-0400 Body temperature 97.11 [degF] Pranav Bermudez MD Work Phone: [facility] 01-11-2022 12:33-0400 Body weight 61.96 kg Pranav Bermudez MD Work Phone: [facility] 01-11-2022 12:33-0400 Diastolic blood pressure 79 mm[Hg] Pranav Bermudez MD Work Phone: [facility] 01-11-2022 12:33-0400 Heart rate 81 /min Pranav Bermudez MD Work Phone: [facility] 01-11-2022 12:33-0400 Respiratory rate 16 /min Pranav Bermudez MD Work Phone: [facility] 01-11-2022 12:33-0400 SaO2% (BldA) [Mass fraction] 98 % Pranav Bermudez MD Work Phone: [facility] 01-11-2022 12:33-0400 Systolic blood pressure 131 mm[Hg] Pranav Bermudez MD Work Phone: [facility] Encounters Encounter Date Encounter Type Care Provider Facility Start: 03-24-2024 ambulatory NATHALIE JONES Facili ty:[facility] Start: 01-21-2024 End: 01-22-2024 ambulatory NATHALIE JONES Facility: [facility] Start: 01-21-2024 End: 01-21-2024 Patient encounter procedure NATHALIE JNOES 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 Facility: Start: 01-16-2023 End: 01-16-2023 Patient encounter procedure NATHALIE JONES [facility] Start: 10-10-2022 End: 10-10-2022 Patient encounter procedure Milly Jolley [facility] Start: 08-29-2022 End: 08-30-[address] EDGARD AMOR . Facility: Start: 08-24-2022 End: 08-24-2022 ambulatory FLAVIA MCDANIELS Facility: Start: 07-25-2022 End: 07-26-[address] HOMERO MOSES . Facility: Start: 07-04-2022 End: 07-05-[address] HOMERO MOSES . Facility: Start: 06-06-2022 End: 06-07-[address] HOMERO MOSES . Facility: Start: 03-01-2022 Telephone encounter Nataly Batista RN Hematology/Oncology Comment on above: Orders Start: 01-11-2022 End: 01-11-2022 ambulatory [facility] [facility] Work Phone: Hematology/Oncology Comment on above: Age-related osteopor osis without current pathological fracture (Primary Dx); Malignant neoplasm of lower-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, estrogen receptor positive (HCC) Malignant neoplasm o f right breast in female, estrogen receptor positive, unspecified site of breast (HCC) (Primary Dx); Osteoporosis due to aromatase inhibitor Start: 01-11-2022 End: 01-11-2022 Patient encounter procedure Pranav Bermudez MD Work Phone: [facility] Start: 01-07-2018 End: 01-08-2018 Ambulatory DEFAULT PHYSICIAN Facility:[facility] Procedures Date Procedure Procedure Detail Performing Clinician Start: 12-20-2020 Urodynamic studies Susan Jolley Start: 06-10-2019 Adult depression scr eening assessment [facility]/[place] Work Phone: Start: 01-24-2018 Excision of mass Felix Freed Comment on above: x2 rt. breast w/ sen tinel node Start: 09-30-1994 Repair of stress incontinence by suprapubic sling Milly Jolley Start: 09-30-1988 H/O: hysterectomy Vadimne nasima Jolley Start: 09-30-1975 Bilateral tubal ligation Milly Jolley Appendectomy Milly Jimenez s Bilateral carpal fozia chandni syndrome (disorder) Milly Jolley Bilateral cataracts (disorder) Milly Jolley Colonoscopy Milly felix Cystoscopy Milly felix Tonsillectomy Milly elizabeth Plan of Treatment Date Care Activity Detail Author Start: 01-11-2025 DIABETES SCREEN DIABETES SCREEN [facility] Start: 01-30-2024 End: 01-30-2024 Patient encounter procedure 01/30/2024 10:30 AM EDT Office Visit [facility] [address] [place] [address] Homero Moses MD [address] [place] [address] (Fax) [facility] Start: 12-14-2023 Medicare Annual Well ness (AWV) Medicare Annual Wellness (AWV) [facility] Start: 11-06-2023 End: 11-06-2023 Patient encounter procedure [facility] Comment on above: 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); White matter disease; Chronic fatigue; Overweight Start: 05-31-2023 Influenza vaccination Influenza Vacc ine (#1) [facility] Start: 07-13-2022 End: 01-11-2023 CBC W Auto Differential panel - Blood CBC + DIFF Lab Routine Malignant neoplasm of right breast in female, estrogen receptor positive, unspecified site of breast (HCC) Osteoporosis due to aromatase inhibitor Expected: 07/13/2022 (Approximate), Expires: 01/11/2023 [facility] Work Phone: Comment on above: Expected: 07/13/2022 (Approximate), Expires: 01/11/2023 Start: 07-13-2022 End: 01-11-2023 Comprehensive metabolic 2000 panel - Serum or Plasma COMP METABOLIC PANEL Lab Routine Malignant neoplasm of right breast in female, estrogen receptor positive, unspecified site of breast (HCC) Osteoporosis due to aromatase inhibitor Expected: 07/13/2022 (Approximate), Expires: 01/11/2023 [facility] Work Phone: Comment on above: Expected: 07/13/2022 (Approximate), Expires: 01/11/2023 Start: 09-30-2021 ADVANCE DIRECTIVE DISCUSSION ADVANCE DIRECTIVE DISCUSSION [facility] Start: 06-10-2020 Adult depression screening assessment DEPRESSION SCREENING [facility] Start: 2006 BONE DENSITY BONE DENSITY [facility] Start: 2006 PNEUMOVAX AGE 65 AND OVER WITH 5YR LOOKBACK (#1) PNEUMOVAX AGE 65 AND OVER WITH 5YR LOOKBACK (#1) [facility] Start: 11-29-1991 SHINGRIX VACCINE (1 of 2) SHINGRIX VACCINE (1 of 2) [facility] Start: 1960 Urine microalbumin profile DTAP,TDAP,TD (1 - Tdap) [facility] Start: 11-29-1947 Pneumococcal Vaccine : 65+ Years (1 - PCV) Pneumococcal Vaccine: 65+ Years (1 - PCV) [facility] Start: 11-29-1947 Pneumococcal Vaccine : 65+ Years (1 of 2 - PCV) Pneumococcal Vaccine: 65+ Years (1 of 2 - PCV) [facility] Start: 11-29-1947 PNEUMOCOCCAL: 65+ (1 - PCV) PNEUMOCOCCAL: 65+ (1 - PCV) [facility] End: 03-31-2023 Diagnostic mammography computer-aided detcj bi RIA DIAGNOSTIC BILAT Radiology Routine Malignant neoplasm of lower-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, estrogen receptor positive (HCC) 1 Occurrences starting 03/01/2022 until 03/31/2023 [facility] Work Phone: Comment on above: 1 Occurrences starti ng 03/01/2022 until 03/31/2023 [facility] Immunizations Immunization Date Immunization Notes Care Provider Belinda perez 08-29-2022 SARS-CoV-2 (COVID-19 ) mRNA-[id number] vaccine NATHALIE JONES [facility] 07-25-2022 influenza virus vaccine, unspecified formulation NATHALIE JONES [facility] 07-25-2022 influenza, injectabl e, quadrivalent, preservative free Homero Moses MD Work Phone: [facility] 08-18-2021 influenza (aIIV4) vaccine, age 65+ yr, quadrivalent, PF (FLUAD QUADRIVALENT) [facility] Work Phone: [facility] 08-18-2021 influenza virus vaccine, unspecified formulation Milly Mariemons [facility] 07-26-2021 SARS-CoV-2 (COVID-19 ) mRNA-1273 vaccine [facility] [place] [facility] 02-28-2021 COVID-19 vaccine, ag e 12+ yr (PFIZER-BIONTECH - PURPLE TOP) [facility] Work Phone: [facility] 02-06-2021 COVID-19 vaccine, ag e 12+ yr (PFIZER-BIONTECH - PURPLE TOP) [facility] Work Phone: [facility] 12-13-2020 COVID-19 vaccine, fu ll dose (MODERNA) [facility] Work Phone: [facility] 12-12-2020 Moderna SARS-CoV-2 Vaccination Homero Moses MD Work Phone: [facility] 11-17-2020 COVID-19 vaccine, fu ll dose (MODERNA) [facility] Work Phone: [facility] 11-16-2020 Moderna SARS-CoV-2 Vaccination Homero Moses MD Work Phone: [facility] 07-04-2020 influenza, high dose seasonal, preservative-free [facility] [place] Work Phone: [facility] 07-13-2019 influenza virus vaccine, unspecified formulation [facility] [place] [facility] 07-13-2019 influenza, injectabl e, quadrivalent, preservative free [facility] Work Phone: [facility] 10-07-2018 influenza virus vaccine, unspecified formulation [facility] 10-07-2018 influenza, high dose seasonal, preservative-free [facility] Work Phone: [facility] 07-07-2018 influenza virus vaccine, unspecified formulation [facility] 07-07-2018 influenza, injectabl e, quadrivalent, preservative free [facility] Work Phone: [facility] 07-08-2017 influenza virus vaccine, unspecified formulation [facility] 07-08-2017 influenza, high dose seasonal, preservative-free [facility] Work Phone: [facility] 07-08-2017 influenza, injectabl e, quadrivalent, preservative free [facility] Work Phone: [facility] Payers Date Payer Category Payer Unknown 2020 Unknown [id number] 2020 Medicare DEVOTED MEDICARE [facility] [id number] 2020-Present [phone] [address] YAINRA BRASWELL [address] [facility] [id number] 1959 Self-pay 1941 Unknown [id number] 1941 Unknown [id number] 1941 Unknown [id number] 1941 Unknown [id number] 1941 Unknown [id number] 1941 Unknown [id number] 9 1941 Unknown [id number] 9 1941 Unknown [id number] 1941 Unknown [id number] Unknown [id number] Social History Date Type Detail Facility Start: 02-06-2018 End: 01-21-2024 Tobacco smoking status NHIS Never smoked tobacco [facility] Start: 02-06-2018 End: 08-08-2023 Tobacco use and exposure Smokeless tobacco non-user [facility] Start: 01-11-2022 End: 11-06-2023 Alcohol intake Current drinker of alcohol (finding) [facility] Start: 01-11-2022 End: 04-04-2023 Alcohol intake [facility] Start: 1940 Sex Assigned At Not on file [facility] Start: 01-01-2022 End: 01-11-2022 Exposure to SARS-CoV-2 (event) Not sure [facility] Start: 04-04-2023 End: 08-12-2023 Sex Assigned At Female [facility] Tobacco smoking status Never [facility] Start: 05-20-2023 Alcohol Comment Caffeine intak e: occasionally [facility] Functional Status Date Assessment Result Facility 01-21-2024 Functional Status N/A [facility] 01-16-2023 Functional Status N/A [facility] 10-10-2022 Functional Status N/A [facility] [place] Clinical Notes 04-14-2021 to 01-21-2024 Homero Moses MD - 11/06/2023 11:00 AM ESTTelephone Encounter - Nataly Batista RN - 03/01/2022 3:42 PM EDTTelephone Encounter - Nataly Batista RN - 03/01/2022 1:44 PM EDT Note Date & Type Note Facility 01-21-2024 Hospital Discharge instructions Patient Education 01/21/2024 15:33:39 Urinary Incontinence Urinary Incontinence Urinary incontinence refers to a condition in which a person is unable to control where and when to pass urine. A person with this condition will urinate involuntarily. This means that the person urinates when he or she does not mean to. What are the causes? This condition may be caused by: Medicines. Infections. Constipation. Overactive bladder muscles. Weak bladder muscles. Weak pelvic floor muscles. These muscles provide support for the bladder, intestine, and, in women, the uterus. Enlarged prostate in men. The prostate is a gland near the bladder. When it gets too big, it can pinch the urethra. With the urethra blocked, the bladder can weaken and lose the ability to empty properly. Surgery. Emotional factors, such as anxiety, stress, or post-traumatic stress disorder (PTSD). Spinal cord injury, nerve injury, or other neurological conditions. Pelvic organ prolapse. This happens in women when organs move out of place and into the vagina. This movement can prevent the bladder and urethra from working properly. What increases the risk? The following factors may make you more likely to develop this condition: Age. The older you are, the higher the risk. Obesity. Being physically inactive. and childbirth. Menopause. Diseases that affect the nerves or spinal cord. Long-term, or chronic, coughing. This can increase pressure on the bladder and pelvic floor muscles. What are the signs or symptoms? Symptoms may vary depending on the type of urinary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 decided to move up here permanently. Her is retired from [employer]. ? Some background history that are reviewed today reveals that she originally presented in consultation 02/06/18 with a new diagnosis of breast cancer. She was taken to lumpectomy 01/24/18 with the finding of a 2 cm sized ER and IN positive, HER 2 negative breast cancer. 0/5 nodes involved, grade II. She completed radiation to the right breast in March 2018 and started anastrazole as well. ? RADIOGRAPHIC DATA: Reviewed on January 12, [id number] Mammogram and dexa---requesting reports to review 2. 12/10/2019 Bilateral Diagnostic Mammogram: Birads 2--benign findings. 1.06/16/14 Dexa scan: osteopenia of spine and hip T scores -1.5, -1.7 PATHOLOGIC PROFILE/MOLECULAR DATA: Reviewed on January 12, 2021 1. 01/24/2018-- right axillary node excision and lumpectomy 2cm ER/IN positive 100%/80%, Her2 negative by FISH right breast invasive mammary carcinoma with ductal and lobular features, grade 2, 0 of 5 lymph nodes T1c, N0 REVIEW OF SYSTEMS Per HPI and otherwise negative by full review of organ systems. ECOG PERFORMANCE STATUS: 0 PHYSICAL EXAMINATION: Vitals: BP 131/79 Pulse 81 Temp (Src) 97.1 (Temporal) Resp 16 Ht 4' 11.016 (1.50m) Wt 136 lb 9.6 oz (62.0kg) SpO2 98% BMI 27.57 kg/(m2). Body surface area is 1.61 meters squared. General:This is an age-appropriate patient in no acute distress. Head: Atraumatic, symmetric with no lesions visible. Eyes: Pupils equally round and reactive to light, extraocular muscles intact. Neck: Supp (more content not included)... [facility] 01-11-2022 History of Present illness Narrative Images from the original note were not included. NAME: Yanet Adames CLINIC NO.: [id number] DATE OF SERVICE: January 11, 2022 Some elements in this clinic note that are critical to medical decision making have been carefully reviewed and included from a prior clinic note dated: July 13, 2021 Referring Provider: Dr. Homero Moses CC: Follow up for diagnosis ASSESSMENT: 1. 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 She is tolerating anastrozole well. She has no evidence of disease recurrence. We briefly discussed the role of Prolia in prevention of osteoporosis and fracture. I have requested reports of both her mammogram and dexa scan to review. Currently on Prolia. No evidence of diseaes 2. Osteopenia of spine The last Dexa report I have is from 2013. I will review her current report when it is available to me, and make recommendations based on the findings. She is currently on calcium and vitamin D supplements She was intolerant to zolendronic acid, will try Prolia q 6 months. PLAN: 1. Prolia today then again in 6 months when she returns. 2. Mammograms scheduled already to be scheduled by patient December 2021 3. Continue Arimidex 4. RTC in 6 months labs same day. TREATMENT TO DATE: 04/2018-current: Anastrazole 2. 03/05/2018-04/22/2018 Radiation to right breast 6120 cGy 1. 01/24/2018 Right Lumpectomy and axillary node excision HPI: Updated Visit, January 11, 2022: Yanet returns and is doing very well on Anastrazole and returns for Prolia q 6 months. She is overdue for mammograms and breast exam but she will complete these with Dr. Moses next month. Labs are stable and she is taking calcium with vitamin D. Has a knot on the right scalp near the vertex. On exam it raised and scabbed consistent with a non-melanoma skin tumor. Chaperoned breast exam with smaller right breast post lumpectomy otherwise benign and left breast is normal. Updated Visit, July 13, 2021: Yanet returns and is doing well on Arimidex in the adjuvant setting for an early stage (I) Right breast cancer involving the Lower outer quadrant ER +, s/p lumpectomy and radiation in 03/2018. Continues to tolerate endocrine therapy well. However, she has significant osteopenia and 6 months ago, patient had Reclast (zolendronic acid) in 12/2020 and ended up in the ER extremely sick. We will try Prolia. Updated Visit, January 12, 2021: Patient returns for follow up on Anastrazole. Tolerating it well. Did have a mammogram and dexa scan within the last month. I do not have reports, but she says she was told she has osteoporosis and her PCP advised she take calcium and vitamin D and do exercises. She is not on bisphosphonates. She has had no new complaints or problems. Updated Visit, May 05, 2020: Yanet Adames is a 79 year old female who presents in follow up. She is on Anastrazole. She is tolerating it well. She denies any joint complaints. She had her last mammogram in December 10, 2019 and it did not reveal any signs of malignancy. She tells me that her diagnosis was found originally in [place] after which she decided to move up here permanently. Her is retired from [employer]. Some background history that are reviewed today reveals that she originally presented in consultation 02/06/18 with a new diagnosis of breast cancer. She was taken to lumpectomy 01/24/18 with the finding of a 2 cm sized ER and IN positive, HER 2 negative breast cancer. 0/5 nodes involved, grade II. She completed radiation to the right breast in March 2018 and started anastrazole as well. RADIOGRAPHIC DATA: Reviewed on January 12, 2021 3. 2020 Mammogram and dexa---requesting reports to review 2. 12/10/2019 Bilateral Diagnostic Mammogram: Birads 2--benign findings. 1.06/16/14 Dexa scan: osteopenia of spine and hip T scores -1.5, -1.7 PATHOLOGIC PROFILE/MOLECULAR DATA: Reviewed on January 12, 2021 1. 01/24/2018-- right axillary node excision and lumpectomy 2cm ER/IN positive 100%/80%, Her2 negative by FISH right breast invasive mammary carcinoma with ductal and lobular features, grade 2, 0 of 5 lymph nodes T1c, N0 REVIEW OF SYSTEMS Per HPI and otherwise negative by full review of organ systems. ECOG PERFORMANCE STATUS: 0 PHYSICAL EXAMINATION: Vitals: BP 131/79 Pulse 81 Temp (Src) 97.1 (Temporal) Resp 16 Ht 4' 11.016 (1.50m) Wt 136 lb 9.6 oz (62.0kg) SpO2 98% BMI 27.57 kg/(m^2). Body surface area is 1.61 meters squared. General:This is an age-appropriate patient in no acute distress. Head: Atraumatic, symmetric with no lesions visible. Eyes: Pupils equally round and reactive to light, extraocular muscles intact. Neck: Supple Mouth: Mucous membranes are moist, no thrush is noted. Lungs: Clear to auscultation bilaterally with no wheezes crackles or rales. Cardiovascular: Regular rate and rhythm with no murmurs or gallops. Peripheral pulses: Normal. Gastrointestinal: Soft, nontender, normoactive bowel sounds, with no appreciable hepatosplenomegaly. Musculoskeletal: No appreciable bony abnormalities or tenderness. Extremities: Lower extremities without edema. Neurologic: Nonfocal to gross visualization. Alert and oriented 3. Psychiatric: No evidence of inappropriate anxiety or depression. Skin: No overt rashes wounds or petechiae. Except for exam of scalp showing a raised and scabbed consistent with a non-melanoma skin tumor. Lymph node exam: No appreciable lymphadenopathy in cervical supraclavicular or axillary lymph node chains. Chaperoned breast exam with smaller right breast post lumpectomy otherwise benign and left breast is normal. ALLERGIES: ALLERGIES Allergen Reactions Milk Vomiting Percocet [Oxycodone* Mental Status Change makes me crazy Soy Unknown MEDICATIONS: anastrozole (ARIMIDEX) 1 mg tablet TAKE 1 TABLET BY MOUTH EVERY DAY solifenacin (VESICARE) 5 mg tablet TAKE 1 TABLET BY MOUTH DAILY FOR 2 WEEKS THEN INCREASE TO 2 TABLETS DAILY TOLERATING SIDE EFFECTS STRONTIUM [id number] ORAL Take by mouth. MULTI-VITAMIN ORAL Refill(s) 0 azelastine (ASTELIN) 0.1% nasal spray azelastine 137 mcg (0.1 %) nasal spray aerosol USE 2 SPRAYS IN EACH NOSTRIL TWICE A DAY PRN buPROPion SR (ZYBAN SR; WELLBUTRIN SR) 150 mg 12 hr tablet TAKE 1 TABLET BY MOUTH EVERY DAY IN THE MORNING estradiol (ESTRACE) 0.01 % (0.1 mg/gram) vaginal cream INSERT ONE GRAM VAGINALLY THREE TIMES WEEKLY thyroid, pork, (RECRUITING COORDINATOR THYROID) 60 mg RECRUITING COORDINATOR Thyroid 60 mg tablet TAKE 1 TABLET BY MOUTH TWICE A DAY ON EMPTY STOMACH sucralfate (CARAFATE) 1 gram tablet Carafate 1 gram tablet Take 1 tablet twice a day by oral route. CALCIUM CITRATE ORAL Take by mouth. anastrozole (ARIMIDEX) 1 mg tablet Take 1 tablet by mouth once daily. Fexofenadine-Pseudoephedrine (BENITA-D 24 HOUR) 180-240 mg per 24 hr tablet Take 1 tablet by mouth once daily. KAROLINA ASPIRIN ORAL Take by mouth. cholecalciferol, vitamin D3, (D-3-5 ORAL) Take by mouth. biotin 5 mg tab Take 5 mg by mouth once daily. calcium carbonate/vitamin D2 (EETYLTE-339-K ORAL) Take by mouth. Magnesium 250 mg tab Take 250 mg by mouth. simvastatin (ZOCOR) 10 mg tablet Take 10 mg by mouth daily at bedtime. verapamil ER (VERELAN) 240 mg 24 hr capsule Take 240 mg by mouth daily at bedtime. PARoxetine (PAXIL) 20 mg tablet Take 20 mg by mouth once daily. ranitidine (ZANTAC) 150 mg tablet 150 mg once daily. DIRECTED LABORATORY VALUES: Hemoglobin (g/dL) Date Value 01/11/2022 13.3 01/12/2021 12.8 Hematocrit (%) Date Value 01/11/2022 40.6 01/12/2021 39.0 WBC (k/uL) Date Value 01/11/2022 6.60 01/12/2021 5.44 Platelet Count (k/uL) Date Value 01/11/2022 222 01/12/2021 215 DIAGNOSIS: (C50.911, Z17.0) Malignant neoplasm of right breast in female, estrogen receptor positive, unspecified site of breast (HCC) (primary encounter diagnosis) Plan: CBC + DIFF, COMP METABOLIC PANEL (M81.8, T38.6X5A) Osteoporosis due to aromatase inhibitor Plan: CBC + DIFF, COMP METABOLIC PANEL PAST MEDICAL HISTORY Diagnosis Date Arrhythmia Esophageal polyp Esophageal ulcer Hiatal hernia Hypercholesteremia Hypothyroid Osteoporosis PAST SURGICAL HISTORY Procedure Laterality Date APPENDECTOMY HX CARPAL TUNNEL HYSTERECTOMY HX PAST SURGICAL HISTORY OF surgery to cervical spine x 2 TONSILLECTOMY AND ADENOIDECTOMY HX TUBAL LIGATION Social History Tobacco Use Smoking status: Never Smoker Smokeless tobacco: Never Used Substance Use Topics Alcohol use: Yes Alcohol/week: 1.7 standard drinks Types: 1 Shots of liquor per week Drug use: No FAMILY HISTORY Problem Relation Age of Onset Cancer Mother Cancer Father Cancer Brother Cancer Paternal Grandmother Cancer Brother Cancer Brother I spent a total of 30 minutes on the date of the service which included preparing to see the patient, [id number] patient care, completing clinical documentation, performing a medically appropriate examination, communicating results to the patient/family/caregiver and care coordination (not separately reported). Pranav Bermudez MD, [place], [place] CC: Pranav Bermudez MD [address] [place] [address] [place] [address] Homero Moses MD [address] [place] [id number] documented in this encounter [facility] [place] 07-13-2021 Note HNO ID: [id number] Author: Pranav Bermudez MD Service: ? Author Type: Physician Type: Progress Notes Filed: 07/13/2021 1:04 PM Note Text: NAME: Yanet Adames CLINIC NO.: [id number] DATE OF SERVICE: July 13, 2021 Some elements in this clinic note that are critical to medical decision making have been carefully reviewed and included from a prior clinic note dated: January 12, 2021 Referring Provider: Dr. Homero Moses CC: I am here for my follow up ASSESSMENT: 1. 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 She is tolerating anastrozole well. She has no evidence of disease recurrence. We briefly discussed the role of Prolia in prevention of osteoporosis and fracture. I have requested reports of both her mammogram and dexa scan to review. Based on my findings of these reports, I may recommend Prolia. 2. Osteopenia of spine The last Dexa report I have is from 2013. I will review her current report when it is available to me, and make recommendations based on the findings. She is currently on calcium and vitamin D supplements She was intolerant to zolendronic acid, will try Prolia q 6 months. PLAN: 1. Prolia in 10 days when approved and then in 6 months when she returns. 2. Mammograms scheduled already in December 2021 3. RTC after mammograms for labs, visit with exam followed by Prolia 4. Continue Arimidex TREATMENT TO DATE: 04/2018-current: Anastrazole 2. 03/05/2018-04/22/2018 Radiation to right breast 6120 cGy 1. 01/24/2018 Right Lumpectomy and axillary node excision HPI: Updated Visit, July 13, 2021: Yanet returns and is doing well on Arimidex in the adjuvant setting for an early stage (I) Right breast cancer involving the Lower outer quadrant ER +, s/p lumpectomy and radiation in 03/2018. Continues to tolerate endocrine therapy well. However, she has significant osteopenia and 6 months ago, patient had Reclast (zolendronic acid) in 12/2020 and ended up in the ER extremely sick. We will try Prolia. Updated Visit, January 12, 2021: Patient returns for follow up on Anastrazole. Tolerating it well. Did have a mammogram and dexa scan within the last month. I do not have reports, but she says she was told she has osteoporosis and her PCP advised she take calcium and vitamin D and do exercises. She is not on bisphosphonates. She has had no new complaints or problems. Updated Visit, May 05, 2020: Yanet Adames is a 79 year old female who presents in follow up. She is on Anastrazole. She is tolerating it well. She denies any joint complaints. She had her last mammogram in December 10, 2019 and it did not reveal any signs of malignancy. She tells me that her diagnosis was found originally in [place] after which she decided to move up here permanently. Her is retired from [employer]. ? Some background history that are reviewed today reveals that she originally presented in consultation 02/06/18 with a new diagnosis of breast cancer. She was taken to lumpectomy 01/24/18 with the finding of a 2 cm sized ER and IN positive, HER 2 negative breast cancer. 0/5 nodes involved, grade II. She completed radiation to the right breast in March 2018 and started anastrazole as well. ? RADIOGRAPHIC DATA: Reviewed on January 12, 2021 3. 2020 Mammogram and dexa---requesting reports to review 2. 12/10/2019 Bilateral Diagnostic Mammogram: Birads 2--benign findings. 1.06/16/14 Dexa scan: osteopenia of spine and hip T scores -1.5, -1.7 PATHOLOGIC PROFILE/MOLECULAR DATA: Reviewed on January 12, 2021 1. 01/24/2018-- right axillary node excision and lumpectomy 2cm ER/IN positive 100%/80%, Her2 negative by FISH right breast invasive mammary carcinoma with ductal and lobular features, grade 2, 0 of 5 lymph nodes T1c, N0 REVIEW OF SYSTEMS Per HPI and otherwise negative by full review of organ systems. ECOG PERFORMANCE STATUS: 0 PHYSICAL EXAMINATION: Vitals: BP 151/80 Pulse 91 Temp (Src) 97 (Temporal) Resp 16 Ht 4' 11.016 (1.50m) Wt 130 lb 3.2 oz (59.1kg) SpO2 96% BMI 26.28 kg/(m2). Body surface area is 1.57 meters squared. Exam limited to gross visualization where appropriate due to COVID-19. Gen.: This is an age-appropriate patient in no acute distress. Head: Appears atraumatic with no visible lesions. Eyes: Pupils equally round and reactive to light, extraocular muscles are intact. Neck: Supple. Mouth: Mucous membranes appeared to be moist. Respiratory: Appears to be respiring comfortably. Neurologic: Nonfocal to gross visualization. Alert and oriented ?3. Psychiatric: No evidence of inappropriate anxiety or depression. Skin: Visible areas of skin without rash, lesions, wounds or petechiae. ALLERGIES: ALLERGIES Allergen Reactions - Milk Vomiting - Percocet [Oxycodone* Me (more content not included)... [facility] 04-28-2021 Note HNO ID: [id number] Author: LIAM Magana Service: Radiology Author Type: Retail Analytics Manager Type: Progress Notes Filed: 04/28/2021 10:05 AM Note Text: Radiology Service Progress Note PATIENT NAME: Yanet Adames DATE OF SERVICE: April 28, 2021 TIME: 9:36 AM PATIENT IDENTITY VERIFICATION COMPLETED USING TWO (2) IDENTIFIERS: Name and Date of confirmed by patient verbally. FALL SCREENING: Has the patient had 2 falls in the last year or 1 fall with injury or currently using an Ambulatory Assistive Device (Walker, Cane, Wheelchair, Crutches, etc.)? No PATIENT GENDER DATA: Female. status: : No status: NO. PATIENT RELEVANT IMPLANT DATA REVIEWED: Yes RADIOLOGY DEPARTMENT: MR; Exam(s) Completed: Head: Orbit/Sinus PERIPHERAL IV DATA: Not applicable SIGNED BY: LIAM Magana April 28, 2021 9:36 AM [facility] 04-14-2021 Note HNO ID: [id number] Author: Marcus Munoz MD Service: ? Author Type: Physician Type: Progress Notes Filed: 04/18/2021 8:42 AM Note Text: [facility] MULTIPLE SCLEROSIS NEW PATIENT EVALUATION/CONSULTATION Referral source: Shadia Barrera, OD [address] [place] [address] Also followed by: Patient Care Team: Homero Moses as PCP - General (Family Practice) Shadia Barrera DO as Referring (Optometry) PRINCIPAL NEUROLOGIC DIAGNOSIS: Double vision, visual field defect. DISEASE SUMMARY Date of onset: February 2021 Date of diagnosis of MS: Not applicable, no diagnosis of MS Disease course at onset: Monophasic Current disease course: Monophasic Previous disease therapies: None Current disease therapy: None Most recent MRI brain: None Most recent MRI cervical spine: None CSF: N/A JCV serology result and date: N/A HISTORY OF ILLNESS: An opinion on this 80 year old female was requested by the referring physician for evaluation regarding abnormal visual starkey testing. The patient was accompanied by her spouse. Previous records (physician notes, laboratory reports, and radiology reports) and imaging studies were reviewed and summarized. My recommendations will be communicated back to the patient's physician(s) via electronic medical record. Follow-up is expected to be with the patient's primary care physician. Yanet Adames is a 80 year old female with a past medical history of stage I ER/IN+ve HER-2neu -ve breast cancer s/p lumpectomy, radiation and adjuvant anastrazole, Hyppothyroidism, hypercholesterolemia, and osteoporosis. She presents today with a chief concern of abnormal visual starkey testing (perimetry). She was getting her routine eye examination when the photo print specialist/sales training coordinator who noted an abnormality on her exam. She states she was told that she failed her peripheral vision and the eye doctor was concerned for a stroke. The patient has not noticed any visual loss, new double vision. She has been falling going up stairs but does not know if she is hitting her foot on the steps. No problems with going downstairs though she does have to hold onto rails. No trouble driving as of yet, but has been brushing against the door frame at times. Never had episodes of transient or persistent vision loss, muscle weakness, loss of sensation, trouble with speech, or Onset 6-8 weeks ago. 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 Falls going up the stairs, no problem going downstairs. Once in a while she will brush by a door frame, Mood is OK, takes more naps than she used to. Not on HRT No ESTRADA. Neuro-Qol Functions (higher = better functioning) Neuro-Qol Symptoms (higher = worse symptoms) *NeuroQoL is a multi-domain patient-reported quality of life questionnaire. PHQ-9 Office Visit from 06/10/2019 in [facility] PHQ-9 Score 8 *PHQ-9 is a questionnaire for depressive symptoms, with scores 0-4 indicating none, 5-9 mild, 10-14 moderate, 15-19 moderately severe, and 20-27 severe symptoms. PROMIS-10 Office Visit from 06/10/2019 in [facility] Global Physical Health T Score 39.8 Global Mental Health T Score 45.8 0-10 Standard Pain Scale 2 *PROMIS-10 is a patient-reported quality of life measure, typically reported as physical and mental domains. Here scores are expressed as percentiles, where the lowest possible score is one, the highest possible score is 99, and 50 is average. PAST HISTORY: PAST MEDICAL HISTORY Diagnosis Date - Arrhythmia - Esophageal polyp - Esophageal ulcer - Hiatal hernia - Hypercholesteremia - Hypothyroid - Osteoporosis PAST SURGICAL HISTORY Procedure Laterality Date - APPENDECTOMY HX - CARPAL TUNNEL - HYSTERECTOMY HX - PAST SURGICAL HISTORY OF surgery to cervical spine x 2 - TONSILLECTOMY AND ADENOIDECTOMY HX - TUBAL LIGATION Transfusions: None Current Outpatient Medications Medication Sig - MULTI-VITAMIN ORAL Refill(s) 0 - azelastine (ASTELIN) 0.1% nasal spray azelastine 137 mcg (0.1 %) nasal spray aerosol USE 2 SPRAYS IN EACH NOSTRIL TWICE A DAY PRN - buPROPion SR (ZYBAN SR; WELLBUTRIN SR) 150 mg 12 hr tablet TAKE 1 TABLET BY MOUTH EVERY DAY IN THE MORNING - estradiol (ESTRACE) 0.01 % (0.1 mg/gram) vaginal cream INSERT ONE GRAM VAGINALLY THREE TIMES WEEKLY - thyroid, pork, (RECRUITING COORDINATOR THYROID) 60 mg RECRUITING COORDINATOR Thyroid 60 mg tablet TAKE 1 TABLET BY MOUTH TWICE A DAY ON EMPTY STOMACH - sucralfate (CARAFATE) 1 gram tablet Carafate 1 gram tablet Take 1 tablet twice a day by oral route. - CALCIUM CITRATE ORAL Take by mouth. - anastrozole (ARIMIDEX) 1 mg tablet Take 1 tablet by mouth once daily. - anastrozole (ARIMIDEX) 1 mg tablet Take 1 tablet by mouth once daily. - Fexofenadine-Pseudoephedrine (BENITA-D 24 HOUR) 180-240 mg per 24 hr tablet Take 1 tablet by mouth once daily (more content not included)... [facility] Evaluation + Plan note Future Appointments Appointment Date:01/11/2023 10:45:00 AM Scheduled Provider:Aldair TURCIOS MD Location:[facility] Appointment Type:URO Office Visit [facility] Evaluation + Plan note Future Appointments Appointment Date:01/21/2024 02:30:00 PM Scheduled Provider:NATHALIE JONES PA-C Location:[facility] Appointment Type:URO Office Visit [facility] Evaluation + Plan note Future Appointments Appointment Date:03/24/2024 02:00:00 PM Scheduled Provider:NATHALIE JONES PA-C Location:[facility] Appointment Type:URO Office Visit [facility] Evaluation note Diagnosis Age-related osteoporosis without current pathological fracture- Primary Senile osteoporosis Malignant neoplasm of lower-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, estrogen receptor positive (HCC) [facility] Diagnosis Malignant neoplasm of right breast in female, estrogen receptor positive, unspecified site of breast (HCC)- Primary Osteoporosis due to aromatase inhibitor Other osteoporosis documented in this [facility] Diagnosis Malignant neoplasm of lower-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, estrogen receptor positive (HCC)- Primary documented in [facility]* Diagnosis Cerebral meningioma (CMS/HCC)- Primary Benign neoplasm of cerebral meninges 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 Chronic fatigue Other malaise and fatigue Overweight Recurrent major depressive disorder, in partial remission (HCC) (CMS/HCC) [facility] No data available for this section [facility] Discharge instructions No data available for this section [facility] Progress note No data available for this section [facility] Reason for referral (narrative)* Diagnostic Procedure Only (Routine) - Pending Review Specialty Diagnoses / Procedures Referred By Angélica t Referred To Contact [facility] Diagnoses Malignant neoplasm of lower-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, estrogen receptor positive (HCC) Procedures RIA DIAGNOSTIC BILAT DIAGNOSTIC MAMMOGRAPHY COMPUTER-AIDED DETCJ Sindi Quevedo, CAKE WRAPPER.[address] [address] [facility] [address] [place] [address] Referral ID Status Reason Start Date Expiration Date Visits Requested Visits Authorized [id number] Pending Review Auto-Generat ed Referral 03/01/2022 03/31/2023 1 1 [facility] Summary Purpose Family History No Family History Records FoundNo Family History Records FoundNo Family History Records FoundNo Family History Records Found No data available for this section No Family History Records Found Advance Directives No Advanced Directives Records FoundDocuments on File Type Date Recorded Patient Technical Account Executive Expl anation Advance Directives and Living Will 05/25/2019 1990-[birth year] Power of Hand Engraver Medications Administered Section Inactive Administered Medications - up to 3 most recent administrations Medication Order MAR Action Action Date Dose Rate Site denosumab 60 mg injection (PROLIA) 60 mg, SUBCUTANEOUS, ONCE, 1 dose, On Carol 01/11/22 at 1330, Allow To Come To Room Temperature Before Administration. REFRIGERATE Given 01/11/2022 1:26 PM EDT 60 mg Arm, Left Additional Source Comments INFORMATION SOURCE (unrecogn ized section and content) DATE CREATED AUTHOR 03/20/2018 [facility] DATE CREATED AUTHOR AUTHOR'S ORGANIZ ATION 03/02/2022 [facility] DATE CREATED AUTHOR AUTHOR'S ORGANIZ ATION 02/13/2023 [facility] DATE CREATED AUTHOR AUTHOR'S ORGANIZ ATION 11/07/2023 [facility]ical [facility] EPIC DATE CREATED AUTHOR AUTHOR'S ORGANIZ ATION 01/23/2024 [facility] Source Comments (unrecognize d section and content) In the event this informatio n is protected by the Federal Confidentiality of Alcohol and Drug Abuse Patient Records regulations: The Federal rules restrict any use of the information to criminally investigate or prosecute any alcohol or drug abuse patient.[facility] the event this information is protected by the Federal Confidentiality of Alcohol and Drug Abuse Patient Records regulations: The Federal rules restrict any use of the information to criminally investigate or prosecute any alcohol or drug abuse patient.[facility] the event this information is protected by the Federal Confidentiality of Alcohol and Drug Abuse Patient Records regulations: The Federal rules restrict any use of the information to criminally investigate or prosecute any alcohol or drug abuse patient.[facility] Reason for Visit (unrecogniz ed section and content) Specialty Diagnoses / Procedures Referred By Contac t Referred To Contact Diagnoses Malignant neoplasm of lower-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, estrogen receptor positive (HCC) Age-related osteoporosis without current pathological fracture Procedures DENOSUMAB INJECTION Pranav Bermduez MD [address] [place] [address] [place] [address] Jefe Treat [facility] [address] [place] [address] Referral ID Status Reason Start Date Expiration Date V isits Requested Visits Authorized [id number] Waiting for Response 07/13/2021 01/15/2022 99 99 Reason Comments Breast Cancer Reason Comments Orders Reason Comments Memory Loss Care Teams (unrecognized sec tion and content) 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 Start Date End Date Homero Moses MD [address] [facility] [place] [address] (Fax) PCP - Devoted 09/30/20 Homero Moses MD [address] [facility] [place] [address] (Fax) PCP - General Family Medicine 02/11/23 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 This clinical summary was aggregated from multiple sources. Caution should be exercised in using it in the provision of clinical care. This summary normalizes information from multiple sources, and as a consequence, information in this document may materially change the coding, format and clinical context of patient data. In addition, data may be omitted in some cases. CLINICAL DECISIONS SHOULD BE BASED ON THE PRIMARY CLINICAL RECORDS. [facility] [employer] [facility]. provides no warranty or guarantee of the accuracy or completeness of information in this document.
[2024-01-31 16:55] LABS: Free T4 0.88 ng/dL (0.76-1.46)
[2024-02-02 08:18] LABS: Triiodothyronine (T3) 102 ng/dL (71-180)
== END 2024-01-31 15:27 | disposition home or self-care (01) ==
LOC: LAB 15:28
PROVIDERS: PCP Family Medicine; Visit Provider Family Medicine
DX: E07.81 Sick-euthyroid syndrome (principal); R53.82 Chronic fatigue, unspecified; E03.8 Other specified hypothyroidism
CPT/HCPCS: 36415; 84439; 84480; 84481; 84482

== ENCOUNTER 2024-07-21 11:28 | Outpatient (OUT) | payer OTHER, SELFPAY ==
--- OUTSIDE RECORDS SUMMARY | 2024-07-21 11:35 | XMS_ITS | CCD ---
Author Organization [facility]iniSyn[facility] Care Team Providers Care Home Health Care Social Worker Name Role Phone PHYSICIAN, DEFAULT Unavailable Unavailable PHYSICIAN, DEFAULT Unavailable Unavailable Homero Moses Primary Care Provider [phone] Shadia Barrera DO Unavailable [phone] Homero Moses MD Primary Care Provider HOMERO MOSES Primary Care Physician Unavail able HEMEYER ., DR MESSINA Admitting Unavailable HEMEYER ., DR MESSINA Attending Unavailable HEMEYER ., DR MESSINA Consulting Unavailable HEMEYER ., DR MESSINA Primary Care Unavailable [facility], DR ERICK Greer Consulting Unavailable HEMEYER ., [...] Primary Care Unavailable Homero Moses MD Unavailable [phone] Homero Moses MD Primary Care Provider [phone] NATHALIE JONES Attending Unavailable NATHALIE JONES Attending Unavailable Homero Moses MD Primary Care Provider Shadia Barrera OD Unavailable HOMERO MOSES Attending Unavailable HOMERO MOSES Attending Unavailable HOMERO MOSES Attending Unavailable HOMERO MOSES Attending Unavailable HOMERO MOSES Attending Unavailable HOMERO MOSES Attending Unavailable HOMERO MOSES Attending Unavailable HOMERO MOSES Attending Unavailable Allergies Allergy Classification Reported Allergen(s) Allergy Type Date of Onset Reaction(s) Facility (13 sources) Acetaminophen / oxyCODONE Drug Allergy 8 Mental Status Change [facility] (4 sources) cow milk allergenic extract Drug Allergy 8 Vomiting [facility] (5 sources) Soy protein; Translations: [Soy] Drug Allergy 8 Unknown [facility] (6 sources) Mold Extract; Translations: [Mold] Drug Allergy Unknown (origin) (qualifier value) [facility] (6 sources) Pollen; Translations: [Pollen] Drug allergy Unknown (qualifier value) [facility] (6 sources) Grass; Translations: [Grass] Allergy to substance Unknown (qualifier value) [facility] (6 sources) Milk Products; Translations: [Milk Products] Drug allergy Unknown (qualifier value) [facility] (6 sources) Soy/Soy Products; Translations: [Soy/Soy Products] Drug allergy Unknown (qualifier value) [facility] (1 source) Milk Drug allergy (disorder) [facility] (1 source) Wheat preparation Drug Allergy [facility] (9 sources) Memantine Drug Allergy 3 Other, Tinnitus, GI intolerance [facility] (9 sources) WHEAT DEXTRIN Drug Allergy 3 [facility] (9 sources) Milk-Related Compounds Drug Allergy 3 [facility] (9 sources) Soybean-Containin g Drug Products Drug Allergy 3 [facility] Medications Current Medications Medication Drug Class(es) Dates Sig (Normalized) Sig (Original) albuterol 0.83 mg/ml inhalation solution (5 sources) beta2-Adrenergic Agonist Start: 06-23-2024 End: 06-23-2025 albuterol (2.5 MG/3ML) 0.083% nebulizer solution Indications: COVID-19 Take 3 mL (2.5 mg) by nebulization every 6 (six) hours if needed for wheezing 75 mL 06/23/2024 06/23/2025 Active aspirin 81 mg oral tablet (18 sources) Platelet Aggregation Inhibitor, Nonsteroidal Anti-inflammatory Drug Start: 02-29-2016 take 81 mg by mouth once daily Aspirin Low Dose 81 mg, Oral, Daily, Refills(s) 0, Blood Thinner Start Date: 02/29/16 Status: Ordered take 1 tablet by mouth in the mo rning aspirin 81 MG EC tablet Take 81 mg by mouth in the morning. Active KAROLINA ASPIRIN OR AL Take by mouth. Active KAROLINA ASPIRIN OR AL Take by mouth. 0 Active Comment on above: Take by mouth. biotin 5 mg oral tablet (4 sources) take 1 tablet by mouth once daily biotin 5 mg tab Take 5 mg by mouth once daily. Active Comment on above: Take 5 mg by mouth o nce daily. 12 hr buPROPion hydrochloride 100 mg extended release oral tablet (13 sources) Aminoketone Start: take 1 tablet by mouth every twelve hours before mealtime buPROPion SR (Wellbutrin SR) 100 MG 12 hr tablet Indications: Recurrent major depressive disorder, in partial remission (HCC) (CMS/HCC) Take 1 tablet (100 mg) by mouth in the morning. Take before meals. Do not crush, chew, or split.. 90 tablet 1 02/18/2024 Active Start: 08-12-2023 End: 02-08-2024 take 1 tablet [...] BY MOUTH EVERY DAY IN THE MORNING 11/21/2020 Active Comment on above: TAKE 1 TABLET BY RADHA TH EVERY DAY IN THE MORNING Calcium (5 sources) Phosphate Binder, Calcium Start: 02-29-2016 take 1 tablet by mouth once daily Calcium 600 D Tab 1 tab(s), Oral, Daily, Refill(s) 0, Prophylaxis Start Date: 02/29/16 Status: Ordered calcium carbonate/vitamin D2 ([id number] ORAL) (4 sources) calcium carbonate/vitamin D2 ([id number] ORAL) Take by mouth. Active calcium carbonat e/vitamin D2 ([id number] ORAL) Take by mouth. 0 Active Comment on above: Take by mouth. Calcium Citrate (13 sources) take 1 tablet by radha th in the morning CALCIUM CITRATE PO Take 1 tablet by mouth in the morning. Active CALCIUM CITRATE ORAL Take by mouth. Active take 1 tablet by mouth in the mo rning CALCIUM CITRATE PO Take 1 tablet by mouth in the morning. 0 Active CALCIUM CITRATE ORAL Take by mouth. 0 Active Comment on above: Take by mouth. cholecalciferol 0.025 mg oral capsule (9 sources) Vitamin D take 1 capsule by mouth in the morning cholecalciferol (Vitamin D-3) 25 MCG (1000 UT) capsule Take 1,000 Units by mouth in the morning. Active cholecalciferol, vitamin D3, (D-3-5 ORAL) (4 sources) cholecalciferol, vitamin D3, (D-3-5 ORAL) Take by mouth. Active cholecalciferol, vitamin D3, (D-3-5 ORAL) Take by mouth. 0 Active Comment on above: Take by mouth. donepezil hydrochloride 10 mg oral tablet (12 sources) Start: 02-03-2024 take 1 tablet by mouth once daily at bedtime donepezil (Aricept) 10 MG tablet Indications: Alzheimer's disease with late onset (CODE) ([facility]/HCC) TAKE 1 TABLET BY MOUTH EVERY DAY AT BEDTIME FOR 30 DAYS 90 tablet 1 02/03/2024 Active Start: 10-09-2023 take 1 tablet by radha th at bedtime donepezil (Aricept) 10 MG tablet Take 10 mg by mouth at bedtime 0 10/09/2023 Active Start: 08-05-2023 End: 11-06-2023 take 1 tablet by mouth at bedtime donepezil (Aricept) 5 MG tablet Take 5 mg by mouth at bedtime. 0 08/05/2023 11/06/2023 Discontinued (Therapy completed) estradiol 0.1 mg/ml vaginal cream (4 sources) Estrogen Start: 11-16-2020 estradiol (ESTRACE) 0.01 % (0.1 mg/gram) vaginal cream INSERT ONE GRAM VAGINALLY THREE TIMES WEEKLY 11/16/2020 Active Comment on above: INSERT ONE GRAM VAGI JANET THREE TIMES WEEKLY Benita (5 sources) Histamine-1 Receptor Antagonist Start: 02-29-2016 Benita See Instructions, PRN Allergy symptoms, Refills(s) 0 Start Date: 02/29/16 Status: Ordered fexofenadine / Pseudoephedrine (13 sources) alpha-Adrenergic Agonist, Histamine-1 Receptor Antagonist take 1 tablet by mouth once daily Fexofenadine-Pse udoephedrine (BENITA-D 24 HOUR PO) Take 1 tablet by mouth 1 (one) time each day at the same time. Active take 1 tablet by radha th once daily, then take 1 tablet by mouth every twenty-four hours Fexofenadine-Pseudoephedrine (BENITA-D 24 HOUR) 180-240 mg per 24 hr tablet Take 1 tablet by mouth once daily. Active take 1 tablet by mouth once ismael y Fexofenadine-Pseudoephedrine (BENITA-D 24 HOUR PO) Take 1 tablet by mouth 1 (one) time each day at the same time. 0 Active Comment on above: Take 1 tablet by radha th once daily. ipratropium bromide 0.042 mg/actuat metered dose nasal spray (2 sources) Anticholinergic Start: End: take 2 spray(s) nasal route in the morning ipratropium (Atrovent) 0.06 % nasal spray Indications: Rhinorrhea Administer 2 sprays into each nostril in the morning and 2 sprays before bedtime. 15 mL 1 07/14/2024 08/13/2024 Active levothyroxine sodium 0.05 mg oral tablet (14 sources) l-Thyroxine Start: take 0.5 tablet by mouth in the morning levothyroxine (Synthroid, Levoxyl) 50 MCG tablet Indications: Acquired central hypothyroidism (CMS/HCC) Take 0.5 tablets (25 mcg) by mouth in the morning and 0.5 tablets (25 mcg) in the evening. Take before meals. 90 tablet 03/17/2024 Active Start: 08-08-2023 End: 11-06-2023 take 0.5 tablet by mouth in the morning levothyroxine (Synthroid, Levoxyl) 50 MCG tablet Indications: Acquired central hypothyroidism (CMS/HCC) Take 0.5 tablets (25 mcg) by mouth in the morning and 0.5 tablets (25 mcg) in the evening. Take before meals. 90 tablet 0 08/08/2023 Active Start: 02-29-2016 take 1 tablet by radha th once daily levothyroxine 50 mcg (0.05 mg) Tab 50 microgram = 1 tab(s), Oral, Daily, Refills(s) 0, Thyroid Start Date: 02/29/16 Status: Ordered liothyronine sodium 0.005 mg oral tablet (9 sources) l-Triiodothyronine Start: 03-17-2024 take 1.5 tablets by mouth in the morning liothyronine (Cytomel) 5 MCG tablet Indications: Euthyroid sick syndrome Take 1.5 tablets (7.5 mcg) by mouth in the morning and 1.5 tablets (7.5 mcg) in the evening. Take before meals. [place] or sigma brand only. 270 tablet 03/17/2024 Active Start: 08-08-2023 End: 02-04-2024 take 1 tablet [...] 180 tablet 1 08/08/2023 02/04/2024 Active Magnesium (4 sources) Magnesium 250 mg tab Take 250 mg by mouth. Active Magnesium 250 mg tab Take 250 mg by mouth. 0 Active Comment on above: Take 250 mg by mouth . Magnesium Oxide (5 sources) Start: 6 magnesium oxide See Instructions, Refills(s) 0, Prophylaxis Start Date: 02/29/16 Status: Ordered meclizine hydrochloride 25 mg oral tablet (9 sources) Antiemetic Start: 3 meclizine (Antivert) 25 MG tablet Indications: Vertigo Take 0.5-2 tablets as needed for vertigo 60 tablet 03/04/2023 Active memantine hydrochloride 5 mg oral tablet (7 sources) M-nqqmlz-K-aspartat e Receptor Antagonist Start: 4 End: 4 take 1 tablet by mouth in the morning memantine (Namenda) 5 MG tablet Indications: Cerebral atrophy (CMS/HCC) Take 1 tablet (5 mg) by mouth in the morning and 1 tablet (5 mg) before bedtime. 180 tablet 1 03/17/2024 09/13/2024 Active 24 hr mirabegron 50 mg extended release oral tablet (1 source) beta3-Adrenergic Agonist Start: 4 take 1 tablet by mouth once daily Myrbetriq 50 mg oral tablet, extended release 50 mg = 1 tab(s), Oral, Daily, # 30 tab(s), Refills(s) 11, Pharmacy: [facility]/pharmacy #[id number], 150, cm, 01/21/24 15:16:00 EDT, Height/Length Dosing, 61.7, kg, 01/21/24 15:16:00 EDT, Weight Dosing Start Date: 01/21/24 Status: Ordered Multi Vitamin+ (5 sources) Start: 1 Multi Vitamin+ Refill(s) 0 Start Date: 12/12/20 Status: Ordered MULTI-VITAMIN ORAL (4 sources) Start: 1 MULTI-VITAMIN ORAL Refill(s) 0 12/12/2020 Active Start: 12-12-2020 MULTI-VITAMIN ORAL Refill(s) 0 0 12/12/2020 Active Comment on above: Refill(s) 0 multivitamin (Theragran) tablet (9 sources) take 2 tablets by mouth in the morning multivitamin (Theragran) tablet Take 2 tablets by mouth in the morning. Active take 2 tablets by mouth in the m orning multivitamin (Theragran) tablet Take 2 tablets by mouth in the morning. 0 Active Nebulizers (Compressor/Nebulizer) misc (5 sources) Start: 06-23-2024 Nebulizers (Compressor/Nebulizer) [facility] Indications: COVID-19 Use 4 times per day and PRN SOB/wheezing 1 each 06/23/2024 Active omeprazole 40 mg delayed release oral capsule (11 sources) Proton Pump Inhibitor Start: 03-04-2024 End: 08-31-2024 take 1 capsule by mouth in the morning omeprazole (PriLOSEC) [address] capsule Indications: Gastroesophageal reflux disease without esophagitis Take 1 capsule (40 mg) by mouth in the morning and 1 capsule (40 mg) in the evening. Take before meals. 180 capsule 1 03/04/2024 08/31/2024 Active Start: 08-12-2023 End: 02-08-2024 take 1 capsule by mouth in the morning omeprazole (PriLOSEC) [address] capsule Indications: Gastroesophageal reflux disease without esophagitis Take 1 capsule (40 mg) by mouth in the morning and 1 capsule (40 mg) in the evening. Take before meals. 180 capsule 1 08/12/2023 02/08/2024 Active Start: 02-29-2016 take 1 capsule by [facility] once daily omeprazole 20 mg Cap-EC [...] Active PARoxetine hydrochloride 20 mg oral tablet (18 sources) Serotonin Reuptake Inhibitor Start: 02-18-2024 take 1 tablet by mouth in the morning PARoxetine (Paxil) 20 MG tablet Indications: Recurrent major depressive disorder, in partial remission (HCC) (CMS/HCC) Take 1 tablet (20 mg) by mouth in the morning. 90 tablet 1 02/18/2024 Active Start: 02-29-2016 End: 02-08-2024 take 1 tablet by mouth once daily paroxetine 20 mg Tab 20 mg = 1 tab(s), Oral, Daily, Refills(s) 0, Depression Start Date: 6/1/16 Status: Ordered Comment on above: Take 20 mg by mouth once daily. polyethylene glycol 3350 [id number] mg powder for oral solution (9 sources) Osmotic Laxative polyethylene gl ycol, PEG, 3350 (MiraLax) 17 GM/SCOOP powder Take 17 g by mouth if needed. Active raNITIdine 150 mg oral tablet (4 sources) Histamine-2 Receptor Antagonist Start: 8 ranitidine (ZANTAC) 150 mg tablet Indications: Malignant neoplasm of right breast in female, estrogen receptor positive, unspecified site of breast (HCC) 150 mg once daily. DIRECTED 2 11/12/2017 Active Comment on above: 150 mg once daily. A S DIRECTED simvastatin 10 mg oral tablet (18 sources) HMG-CoA Reductase Inhibitor Start: End: take 1 tablet by mouth at bedtime simvastatin (Zocor) 10 MG tablet Indications: Mixed dyslipidemia (CMS/HCC) Take 1 tablet (10 mg) by mouth at bedtime 90 tablet 1 03/04/2024 08/31/2024 Active Start: 02-29-2016 End: 02-08-2024 take 1 tablet by mouth once daily at bedtime simvastatin 10 mg Tab 10 mg = 1 tab(s), Oral, Once a day (at bedtime), Refills(s) 0, High cholesterol Start Date: 02/29/16 Status: Ordered Comment on above: Take 10 mg by mouth daily at bedtime. sodium chloride 9 mg/ml inhalation solution (5 sources) Start: 06-23-2024 End: 07-23-2024 sodium chloride (Broncho Saline) 0.9 % aerosol solution Indications: COVID-19 Inhale 1 spray 3 (three) times a day as needed for shortness of breath 90 mL 06/23/2024 07/23/2024 Active solifenacin succinate 10 mg oral tablet (9 sources) Cholinergic Muscarinic Antagonist Start: 10-10-2022 take 1 tablet by mouth once daily Vesicare 10 mg Tab 10 mg = 1 tab(s), Oral, Daily, # 90 caplet(s), Refills(s) 3, Pharmacy: [id number], 150, cm, 01/16/23 15:30:00 EDT, [...] SIDE EFFECTS sucralfate 1000 mg oral tablet (13 sources) Aluminum Complex take 1 tablet by mouth three times daily at bedtime as needed sucralfate (Carafate) 1 g tablet Take 1 g by mouth See administration instructions. Dissolve 1 tablet in 2 oz of water three times daily before meals and again before bedtime as needed Active take 1 tablet by mouth twice loyda ly sucralfate (CARAFATE) 1 gram tablet Carafate 1 gram tablet Take 1 tablet twice a day by oral route. Active Comment on above: Carafate 1 gram tabl et Take 1 tablet twice a day by oral route. thyroid (penitentiary) 60 mg oral tablet (4 sources) take 1 tablet by mouth twice daily thyroid, pork, (AUTHORIZATION REPRESENTATIVE THYROID) 60 mg AUTHORIZATION REPRESENTATIVE Thyroid 60 mg tablet TAKE 1 TABLET BY MOUTH TWICE A DAY ON EMPTY STOMACH Active Comment on above: AUTHORIZATION REPRESENTATIVE Thyroid 60 mg tab let TAKE 1 TABLET BY MOUTH TWICE A DAY ON EMPTY STOMACH verapamil hydrochloride 240 mg extended release oral tablet (18 sources) Calcium Channel Oleg Start: 4 End: 4 take 1 tablet by mouth once daily verapamil SR (Calan SR) 240 MG ER tablet Indications: Primary hypertension (CMS/HCC) Take 1 tablet (240 mg) by mouth 1 (one) time each day at the same time 90 tablet 1 03/04/2024 08/31/2024 Active Start: 08-12-2023 End: 02-08-2024 take 1 tablet by mouth once daily verapamil SR (Calan SR) 240 MG ER tablet Indications: Primary hypertension (CMS/HCC) Take 1 tablet (240 mg) by mouth 1 (one) time each day at the same time. 90 tablet 1 08/12/2023 02/08/2024 Active Start: 02-29-2016 take 1 capsule by mo [facility] once daily verapamil 240 mg Cap-ER 240 [...] Ordered Vitamin C 1000 mg oral tablet (5 sources) Start: 02-29-2016 Vitamin C 1000 mg oral tablet See Instructions, Refills(s) 0, Prophylaxis Start Date: 02/29/16 Status: Ordered Vitamin D3 1000 intl units oral capsule (5 sources) Start: 02-29-2016 Vitamin D3 1000 intl units oral capsule See Instructions, Refills(s) 0, Prophylaxis Start Date: 02/29/16 Status: Ordered Completed/Discontinued Medications Medication Drug Class(es) Dates Sig (Normalized) Sig (Original) anastrozole 1 mg oral tablet (8 sources) Aromatase Inhibitor Start: 09-01-2020 End: 11-24-2021 take 1 tablet by mouth once daily anastrozole (ARIMIDEX) 1 mg tablet Take 1 tablet by mouth once daily. 90 tablet 3 12/19/2020 11/24/2021 Discontinued Comment on above: Take 1 tablet by radha th once daily. TAKE 1 TABLET BY RADHA TH EVERY DAY azelastine hydrochloride 0.137 mg/actuat metered dose nasal spray (13 sources) Histamine-1 Receptor Antagonist End: 07-14-2024 azelastine (Astelin) 0.1 % nasal spray Administer 2 sprays into each nostril every 12 (twelve) hours. 07/14/2024 Discontinued (Therapy completed) take 2 spray(s) nasa l route twice daily as needed azelastine (ASTELIN) 0.1% nasal spray azelastine 137 mcg (0.1 %) nasal spray aerosol USE 2 SPRAYS IN EACH NOSTRIL TWICE A DAY PRN Active Comment on above: azelastine 137 mcg ( 0.1 %) nasal spray aerosol USE 2 SPRAYS IN EACH NOSTRIL TWICE A DAY PRN ciprofloxacin 250 mg oral tablet (1 source) Quinolone Antimicrobial Start: 05-14-20 take 1 tablet by mouth once daily Cipro 250 mg Tab 250 mg = 1 tab(s), Oral, Daily, Take 1 tablet the day before the procedure and 1 tablet after the procedure, # 2 tab(s), Refills(s) 0, Pharmacy: [facility]/pharmacy #[id number], 150, cm, 03/24/24 14:02:00 EDT, Height/Length Dosing, 64, kg, 03/24/24 14:02:00 EDT, Weight Dosing Start Date: 05/14/24 Status: Ordered Nirmatrelvir&Ritonavi r 300/100 (Paxlovid, 300/100,) 20 x 150 MG & 10 x 100MG tablet therapy pack (2 sources) Start: 06-15-20 End: 06-23-20 take 3 tablets by mouth in the morning Nirmatrelvir&Ritonav ir 300/100 (Paxlovid, 300/100,) 20 x 150 MG & 10 x 100MG tablet therapy pack Indications: Infection caused by 2019 Novel Coronavirus Take 3 tablets by mouth in the morning and 3 tablets before bedtime. 1 each 06/15/2024 06/23/2024 Discontinued (Other) 24 hr oxybutynin chloride 5 mg extended release oral tablet (1 source) Cholinergic Muscarinic Antagonist End: 07-13-20 take 1 tablet by mouth twice daily oxybutynin XL (DITROPAN XL) 5 mg 24 hr tablet Take 5 mg by mouth twice daily. 07/13/2021 Discontinued (Changing Therapy/Dosage Form) Strontium (3 sources) STRONTIUM [id number] ORAL Take by mouth. 0 Active Comment on above: Take by mouth. Problems Active Problems Problem Classification Problem Date Documented Date Episodic/Chronic Abdominal hernia (5 sources) Hiatal hernia 12-05-2020 Episodic Acute and chronic tonsillitis (4 sources) Enlarged tonsil; Translations: [Hypertrophy of tonsils] 07-15-2024 Chronic Blindness and vision defects (1 source) Diplopia; Translations: [Diplopia] 04-28-2021 Episodic Cancer of breast (20 sources) Malignant neoplasm of lower-outer quadrant of female breast; Translations: [Malignant neoplasm of lower-outer quadrant of right female breast] Onset: 8 Chronic Congestive heart failure; nonhypertensive (9 sources) Chronic diastolic heart failure; Translations: [Chronic diastolic (congestive) heart failure] Onset: 3 03-04-2023 Chronic Coronary atherosclerosis and other heart disease (14 sources) Coronary arteriosclerosis; Translations: [Coronary atherosclerosis] Onset: 3 12-05-2020 Chronic Delirium, dementia, and amnestic and other cognitive disorders (20 sources) Vascular dementia ; Translations: [Moderate vascular dementia with psychotic disturbance] Onset: 3 05-20-2023 Chronic Diseases of white blood cells (9 sources) Granulomatous disorder; 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] Onset: 3 03-04-2023 Chronic Disorders of lipid metabolism (20 sources) Hyperlipidemia; Translations: [Mixed hyperlipidemia] Onset: 6 Resolved: 3 12-05-2020 Chronic Endometriosis (5 sources) Endometriosis (clinical) 12-05-2020 Chronic Esophageal disorders (20 sources) Gastroesophageal reflux disease; Translations: [Gastroesophageal reflux disease without esophagitis] Onset: 3 12-05-2020 Chronic Essential hypertension (10 sources) Essential (primary) hypertension; Translations: [Essential hypertension] Onset: 2 03-04-2023 Chronic Genitourinary symptoms and ill-defined conditions (20 sources) Mixed incontinence; Translations: [Incontinence without sensory awareness] Onset: 3 Chronic Genitourinary symptoms and ill-defined conditions (17 sources) Urgent desire to urinate; Translations: [Urgency of urination] Onset: 3 Episodic Hepatitis (9 sources) Hepatic granuloma; 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, not elsewhere classified] Onset: 3 03-04-2023 Chronic Malaise and fatigue (16 sources) Chronic fatigue, unspecified; Translations: [Fatigue] Onset: 2 Chronic Menopausal disorders (18 sources) Atrophic vaginitis; Translations: [Postmenopausal atrophic vaginitis] Onset: 3 03-04-2023 Chronic Mood disorders (16 sources) Depressive disorder; Translations: [Recurrent major depression in partial remission] Onset: 3 12-05-2020 Chronic Mycoses (5 sources) Histoplasmosis 12-05-2020 Episodic Nutritional deficiencies (9 sources) Vitamin D deficiency; Translations: [Vitamin D deficiency, unspecified] Onset: 3 03-04-2023 Chronic Osteoporosis (18 sources) Senile osteoporosis; Translations: [Age-related osteoporosis without current pathological fracture] Onset: Chronic Other and unspecified benign neoplasm (11 sources) Intracranial meningioma; Translations: [Benign neoplasm of cerebral meninges] Onset: 3 03-04-2023 Chronic Other connective tissue disease (2 sources) Muscle pain; Translations: [Myalgia, other site] 07-14-2024 Episodic Other diseases of bladder and urethra (9 sources) Overactive bladder; Translations: [Overactive bladder] Onset: 3 03-04-2023 Chronic Other hereditary and degenerative nervous system conditions (9 sources) Cerebral atrophy; Translations: [Degenerative disease of nervous system, unspecified] Onset: 3 05-20-2023 Chronic Other infections; including parasitic (2 sources) Post-viral disorder; Translations: [[id number] condition] 07-14-2024 Chronic Other nervous system disorders (5 sources) Carpal tunnel syndrome 12-05-2020 Chronic Other nutritional; endocrine; and metabolic disorders (13 sources) Overweight; Translations: [Overweight] Onset: 3 03-04-2023 Episodic Other upper respiratory disease (9 sources) Allergic rhinitis; Translations: [Allergic rhinitis, unspecified] Onset: 3 03-04-2023 Chronic Other upper respiratory disease (2 sources) Nasal discharge; Translations: [Other specified disorders of nose and nasal sinuses] 07-14-2024 Episodic Prolapse of female genital organs (5 sources) Cystocele 12-05-2020 Chronic Residual codes; unclassified (9 sources) Obstructive sleep apnea syndrome; Translations: [Obstructive sleep apnea (adult) (pediatric)] Onset: 3 03-04-2023 Chronic Residual codes; unclassified (9 sources) Periodic limb movement disorder; Translations: [Periodic limb movement disorder] Onset: 3 03-04-2023 Chronic Residual codes; unclassified (9 sources) Slow respiration; Translations: [Sleep apnea, unspecified] Onset: 3 03-04-2023 Chronic Spontaneous (5 sources) Miscarriage 12-05-2020 Episodic Thyroid disorders (15 sources) Hypothyroidism; Translations: [Other specified hypothyroidism] Onset: 2 12-05-2020 Chronic Unclassified (5 sources) Patient on antidepressant monitoring plan Onset: 4 02-03-2024 Unclassified (5 sources) Baseline PHQ-9 Onset: 4 02-03-2024 Viral infection (2 sources) Disease caused by 2019-nCoV; Translations: [COVID-19] 06-23-2024 Episodic Past or Other Problems Problem Classification Problem Date Documented Da te Episodic/Chronic Cancer of breast (1 source) Personal history of malignant neoplasm of breast; Translations: [PERS HX MALIGNANT NEOPLASM BREAST] Onset: 2 Episodic Other aftercare (1 source) Other [facility] (current) drug therapy; Translations: [OTH RESIDENTIAL CURRENT DRUG THERAPY] Onset: 2 Episodic Other and unspecified benign neoplasm (9 sources) Gastric polyp; Translations: [Polyp of stomach and duodenum] Onset: 3 03-04-2023 Episodic Other bone disease and musculoskeletal deformities (12 sources) Osteopenia; Translations: [Other specified disorders of bone density and structure, other site] Onset: 2 01-11-2022 Episodic Other connective tissue disease (3 sources) Other specified soft tissue disorders; Translations: [OTHER SPEC SOFT TISSUE DISORDERS] Onset: 2 Episodic Other gastrointestinal disorders (9 sources) Chronic constipation; Translations: [Other constipation] Onset: 3 03-04-2023 Episodic Other nervous system disorders (11 sources) White matter disease; Translations: [White matter disease, unspecified] Onset: 3 03-04-2023 Episodic Other screening for [...] MALIG NEOPLASM DIGESTIV ORGN] Onset: 2 Episodic Thyroid disorders (19 sources) Sick-euthyroid syndrome; Translations: [Sick-euthyroid syndrome] Onset: 2 12-05-2020 Episodic Results Test Name Value Interpretation Reference Range Facility Patient Letter FTon 2023 Patient [place] [facility] [place] [facility] [place] 07, 2024 YANET ADAMES [address] [place] [address] : 1940 Dear Yanet Adames, [facility] (Dr. Aldair Turcios office), has been trying to reach you concerning scheduling a bladder scope and bladder function test, prior to having possible Botox treatment done. The office has left messages without a response. Please call the office so we can coordinate this appointment, and continue to provide you with quality care. Sincerely, [facility] , option #3 [facility] Screenson 03-25-2024 Screens [id number] FF [facility] Patient Educationon 03-24-20 24 Patient Education Urology Botulinum Toxin Bladder Injection A botulinum toxin bladder injection is a procedure to treat an overactive bladder. During the procedure, a drug called botulinum toxin is injected into the bladder through a long, thin needle. This drug relaxes the bladder muscles and reduces overactivity. You may need this procedure if your medicines are not working or you cannot take them. The procedure may be repeated as needed. The treatment is done once and it usually lasts for 6 months. Your health care provider will monitor you to see how well you respond. Tell a health care provider about: ? Any allergies you have. ? All medicines you are taking, including vitamins, herbs, eye drops, creams, and sxzu-bzc-mcbusdr medicines. ? Any problems you or family members have had with anesthetic medicines. ? Any bleeding problems you have. ? Any surgeries you have had. ? Any medical conditions you have. ? Any previous reactions to a botulinum toxin injection. ? Any symptoms of urinary tract infection. These include chills, fever, a burning feeling when passing urine, and needing to pass urine often. ? Whether you are or may be . What are the risks? Generally this is a safe procedure. However, problems may occur, including: ? Not being able to pass urine. If this happens, you may need to have your bladder emptied with a thin tube (urinary catheter). ? Bleeding. ? Urinary tract infection. ? Allergic reaction to the botulinum toxin. ? Pain or burning when passing urine. ? Damage to nearby structures or organs. What happens before the procedure? When to stop eating and drinking Follow instructions from your health care provider about what you may eat and drink before your procedure. These may include: ? 8 hours before the procedure ? Stop eating most foods. Do not eat meat, fried foods, or fatty foods. ? Eat only light foods, such as toast or crackers. ? All liquids are okay except energy drinks and alcohol. ? 6 hours before the procedure ? Stop eating. ? Drink only clear liquids, such as water, clear fruit juice, black coffee, plain tea, and sports drinks. ? Do not drink energy drinks or alcohol. ? 2 hours before the procedure ? Stop drinking all liquids. ? You may be allowed to take medicines with small sips of water. If you do not follow your health care provider's instructions, your procedure may be delayed or canceled. Medicines Ask your health care provider about: ? Changing or stopping your regular medicines. This is especially important if you are taking diabetes medicines or blood thinners. ? Taking medicines such as aspirin and ibuprofen. These medicines can thin your blood. Do not take these medicines unless your health care provider tells you to take them. ? Taking lqnk-pib-qgdspzn medicines, vitamins, herbs, and supplements. General instructions ? Ask your health care provider what steps will be taken to help prevent infection. These steps may include: ? Removing hair at the procedure site. ? Washing skin with a germ-killing soap. ? Taking antibiotic medicine. ? If you will be going home right after the procedure, plan to have a responsible adult: ? Take you home from the hospital or clinic. You will not be allowed to drive. ? Care for you for the time you are told. What happens during the procedure? ? You will be asked to empty your bladder. ? An IV will be inserted into one of your veins. ? You will be given one or more of the following: ? A medicine to help you relax (sedative). ? A medicine to numb the area (local anesthetic). ? A medicine to make you fall asleep (general anesthetic). ? A long, thin scope called a cystoscope will be passed into your bladder through the part of the body that carries urine from your bladder (urethra). ? The cystoscope will be used to fill your bladder with water. ? A long needle will be passed through the cystoscope and into the bladder. ? The botulinum toxin will be injected into your bladder. It may be injected into multiple areas of your bladder. ? The cystoscope will be removed and your bladder will be emptied with a urinary catheter. The procedure may vary among health care providers and hospitals. What can I expect after the procedure? After your procedure, it is common to have: ? Blood-tinged urine. ? Burning or soreness when you pass urine. Follow these instructions at home: Medicines ? Take yrti-yob-mvlnzup and prescription medicines only as told by your health care provider. ? If you were prescribed an antibiotic medicine, take it as told by your health care provider. Do not stop using the antibiotic even if you start to feel better. General instructions ? If you were given a sedative during the procedure, it can affect you for several hours. Do not drive or operate machinery until your health ca (more content not included)... Normal [facility] Urology Office/Clinic Noteon 03-24-2024 Urology Office/Clinic Note Chief Complaint 2m to starting Gemtesa therapy HPI Staff PRW pt 2m to starting Gemtesa (initially sent Myrbetriq, however too expensive) DX: Mixed Incontinence Pt did not start medication. States she has a problem with memory. Believes she was told she could not take it due to dementia. Still wearing a pad. Changes up to 2x/day. Denies all other urinary sx. History of Present Illness staff HPI reviewed and agree. Tests Reviewed: Reviewed UA. Review of Systems PHQ Score Initial Depression Screen Score: 0 SCORE no fever, chills, malaise, myalgia. no rash/lesions. no chest pain, palpitations, or SOB. no abdominal pain, nausea, vomiting. no unilateral calf swelling, redness, pain Physical Exam Vitals & Measurements HR: 80(Peripheral) RR: 16 BP: 127/76 HT: 59 in HT: 150 cm WT: 64 kg WT: 140.8 lb BMI: 28.44 General: nontoxic, NAD Mouth: moist mucosa Lungs: normal respiratory effort Cardio: regular rate, good distal perfusion Abdomen: nondistended, no suprapubic distention or tenderness, no CVA tenderness Neurologic: Grossly normal Skin: No rashes or suspicious lesions Assessment/Plan PRW pt. 1. Mixed incontinence (N39.46: Mixed incontinence) BBS 22 (14). PVR 01/16/23 - 37 cc. UA today negative for blood and infection. Pt was to switch from Vesicare (no longer working) to Myrbetriq at prior OV (see #2), but it was cost prohibitive. Gemtesa was sent instead however pt never started this med. Does not recall being notified that a different med was sent, per messages she was notified. Pt does suffer from #2. Called pt's pharmacy and Gemtesa would cost her $95/month, this is also cost prohibitive. Discussed Botox today at length. Pt is concerned about being awake for the procedure, would want anxiolytic. Pt understands PRW may wish to repeat cysto +/- uros prior to Botox. -Prior auth procedure with insurance. -Will schedule Botox with Dr. Turcios. The procedural risks, benefits, details, and treatment alternatives have been discussed with the patient. These include bleeding, infection, continued problems with overactive bladder, inability to empty the bladder which could require an indwelling catheter or need for in/out catheterization to empty the bladder, and need for repeat procedures over time (usually lasts up to six months), as well as fatigue and insomnia, among others. There is a minimal risk of Botox entering the blood stream and causing neurological problems, which is quite rare. Full informed consent has been obtained. Will order Local anesthesia. 2. Alzheimer disease (G30.9: Alzheimer's disease, unspecified) neuro consult in her chart from last fall w dx Alzheimers, late onset. [1] Not a candidate for anticholinergics. Follow-up With When Contact Information ROBERT CONRAD, NATHALIE E, URL [address] [place] [address] Additional Instructions: schedule Botox with Dr. Turcios Patient Education Botulinum Toxin Bladder Injection Documentation recorded by the scribluciano Cueva accurately reflects the services(s) I performed and decisions made by me. Authenticated by Nathalie Jones PA-C on 03/24/2024 14:21:28. I, Silvia Cueva, personally scribed for LISA Jackson on 03/24/2024 14:17:42. . Problem List/Past Medical History Ongoing Alzheimer disease Bladder prolapse, female, acquired Breast cancer CAD (coronary artery disease) Carpal tunnel syndrome of left wrist Depression Endometriosis Euthyroid sick syndrome GERD (gastroesophageal reflux disease) Hiatal hernia Histoplasmosis Hyperlipidemia Hypothyroidism Miscarriage Mixed incontinence Historical Dementia Incontinence without sensory awareness Nocturia Urge incontinence Urge urinary incontinence Urgency of urination Urinary urgency Procedure/Surgical History Cystoscopy (12/20/2020), Urodynamics (12/20/2020), Lumpectomy (01/24/2018), Sling procedure of bladder neck (1994), History of hysterectomy.. (1988), Bilateral tubal ligation (1975), Appendectomy, Bilateral carpal tunnel syndrome, Bilateral cataracts, Colonoscopy, Tonsillectomy. Medications Benita, See Instructions, PRN Aspirin Low Dose, 81 mg, Oral, Daily Calcium 600 D Tab, 1 tab(s), Oral, Daily levothyroxine 50 mcg (0.05 mg) Tab, 50 mcg= 1 tab(s), Oral, Daily magnesium oxide, See Instructions memantine 5 mg Tab Multi Vitamin+ paroxetine 20 mg Tab, 20 mg= 1 tab(s), Oral, Daily simvastatin 10 mg Tab, 10 mg= 1 tab(s), Oral, Once a day (at bedtime) verapamil 240 mg Cap-ER, 240 mg= 1 cap(s), Oral, Daily Vitamin C 1000 mg oral tablet, See Instructions Vitamin D3 1000 intl units oral capsule, See Instructions Allergies Grass (Unknown) Milk Products (Unknown) Mold (Unknown (origin)) Pollen (Unknown) Soy/Soy Products (Unknown) Social History Tobacco Never (less than 100 in lifetime) Tobacco Use:. Never Smokeless Tobacco Use:., (more content not included)... [facility] Comment on above: Result Comment: Elec tronically Signed By: NATHALIE JONES PA-C\.br\Date and Time Signed: 03/24/24 14:21 EDT\.br\Electronically Co-Signed By: Silvia Cueva\.br\Date and Time Co-Signed: 03/24/24 14:18 EDT [place] 01-22-2024 Screens [id number] TIFF [facility] Ambulatory Visit Summaryon 0 01-21-2024 Ambulatory Visit Summary YANET ADAMES :1940 Visit Date:01/21/2024 Ambulatory Visit Instructions Your Diagnosis Mixed incontinence Alzheimer disease Dementia in other diseases classified elsewhere, unspecified severity, without behavioral disturbance, psychotic disturbance, mood disturbance, and anxiety Your Care Team Attending Physician - NATHALIE JONES PA-C Primary Care Physician - JOSUÉ COSTELLO, HOMERO [...] NATHALIE JONES PA-C Where: [facility] [place] Normal [facility] Patient Educationon 01-21-20 Patient Education Urology [...] stimulation). ? For women, using a medical front desk specialist to prevent urine leaks. This is a [...] urine. ? (more content not included)... Normal [facility] Urology Office/Clinic Noteon 01-21-2024 Urology Office/Clinic Note [...] No rashes or suspicious lesions Assessment/Plan Dr. Turcios pt. 1. Mixed incontinence (N39.46: Mixed incontinence) [...] Daily, # 30 tab(s), Refills(s) 11, Pharmacy: [facility]/pharmacy #[id number], 150, cm, 01/21/24 15:16:00 EDT, Height/Length [...] Urnls Dip Stick Auto w/o Microscopy POC 34889 2. Alzheimer disease (G30.9: Alzheimer's disease, unspecified) see #1. not a good candidate for anticholinergics. Dementia in other diseases classified elsewhere, unspecified severity, without behavioral disturbance, psychotic disturbance, mood disturbance, and anxiety (F02.80: Dementia in other diseases classified elsewhere, unspecified severity, without behavioral disturbance, psychotic disturbance, mood disturbance, and anxiety) Follow-up With When Contact Information NATHALIE JONES PA-C, URL [address] [place] [address] [phone] Additional Instructions: 2-3 mos (new med) Patient Education Urinary Incontinence Documentation recorded by the scribluciano Quevedo accurately reflects the services(s) I performed and decisions made by me. Authenticated by Nathalie Jones PA-C on 01/21/2024 15:42:09. I, Liset Quevedo, personally scribed for Nathalie Jones PA-C on [...] hysterectomy.. (1988), Bilat (more content not included)... Normal [facility] Comment on above: Result Comment: Elec tronically Signed By: NATHALIE JONES PA-C\.br\Date and Time Signed: 01/21/24 15:42 EDT\.br\Electronically Co-Signed By: Liste Quevedo\.br\Date and Time Co-Signed: 01/21/24 15:37 EDT Consultation Noteon 07-25-20 Consultation Note [id number] IFF Normal [facility] Consultation Noteon 06-11-20 Consultation Note [id number] :127 Normal [facility] REVERSE T3on 02-12-2023 Reverse T3, Serum 17.8 ng/dL Normal 9.2-24.1 [facility] Comment on above: Performed By: #### T SH, FT3 #### [facility] [address] [address] [address] Silvestre Williamson T3, TOTAL (TRIIODOTHYRONINE) on 01-30-2023 T3, TOTAL 121 ng/dL Normal 71-180 [facility] Comment on above: Performed By: #### T 3TOTAL #### [facility] [address] [place] [address] Dr. Silvestre Williamson FREE T3on 01-29-2023 FREE T3 2.87 pg/mlL Normal 2.18-3.98 [facility] Comment on above: Performed By: #### T SH, FT3 #### [facility] [address] [place] [address] Dr. Silvestre Williamson FREE T4on 01-29-2023 Free T4 [Mass/Vol] 0.64 ng/dL Critically low 0.76-1.46 [facility] Comment on above: Performed By: #### F T4 #### [facility] [address] [place] [address] Dr. Silvestre Williamson TSHon 01-29-2023 TSH 0.220 uIU/mL Critically low 0.358-3.740 [facility] Comment on above: Performed By: #### T SH, FT3 #### [facility] [address] [place] [address] Dr. Silvestre Williamson US MARCELA DOP LEG [...] VALERIE SAWYER Date: 2022-08-24 18:12 Normal [facility] REVERSE T3on 07-31-2022 Reverse T3, Serum 16.3 ng/dL Normal 9.2-24.1 [facility] Comment on above: Result Comment: This test was developed and its performance characteristics determined by [facility]. It has not been cleared or approved by the Food and Drug Administration. Performed By: #### T SH, FT3 #### [facility] [address] [place] [address] Dr. Silvestre Williamson T3, TOTAL (TRIIODOTHYRONINE) on 07-26-2022 T3, TOTAL 156 ng/dL Normal 71-180 [facility] Comment on above: Performed By: #### T 3TOTAL #### [facility] [address] [place] [address] Dr. Silvestre Williamson FREE T3on 07-25-2022 FREE T3 3.85 pg/mlL Normal 2.18-3.98 [facility] Comment on above: Performed By: #### T SH, FT3 #### [facility] [address] [place] [address] Dr. Silvestre Williamson FREE T4on 07-25-2022 Free T4 [Mass/Vol] 1.04 ng/dL Normal 0.76-1.46 [facility] Comment on above: Performed By: #### F T4 #### [facility] [address] [place] [address] Dr. Silvestre Williamson TSHon 07-25-2022 TSH Qn m[IU]/L Critically low 0.358-3.740 [facility] Comment on above: Performed By: #### T SH, FT3 #### [facility] [address] [place] [address] Dr. Silvestre Williamson MG MAMM SCREEN 3D RUBEN CADon 07-04-2022 MG MAMM SCREEN 3D RUBEN CAD Patient: YANET ADAMES Exam Date: 07/04/2022 : 1940 Gender:F Ordering : DR HOMERO MOSES . Admission #: [id number] Family : Order #: [id number] CLICK HERE TO VIEW EXAM RADIOLOGY REPORT [...] colon cancer at age 71. LOCATION: [facility] BREAST COMPOSITION: Heterogeneously dense,which may obscure small [...] Hyde MD on 07/04/2022 at 09:10 Normal [facility] LIPID PROFILEon 06-06-2022 CHOL-HDL RATIO NORM SEE BELOW Normal [facility] Comment on above: Result Comment: 3.3 - 4.4 LOW RISK 4.4 - 7.1 AVERAGE RISK 7.1 - 11.0 MODERATE RISK >11.0 HIGH RISK Performed By: #### T SH, FT3 #### [facility] [address] [place] [address] Dr. Silvestre Williamson Cholesterol [Mass/Vol] 271 mg/dL Critically high <=200 [facility] Comment on above: Performed By: #### T SH, FT3 #### [facility] [address] [place] [address] Dr. Silvestre Williamson Cholesterol in HDL [Mass/Vol] 122 mg/dL Critically high 40-60 [facility] Comment on above: Performed By: #### T SH, FT3 #### [facility] [address] [place] [address] Dr. Silvestre Williamson Cholesterol in LDL [Mass/Vol] 140.6 mg/dL Normal [facility] Comment on above: Performed By: #### T SH, FT3 #### [facility] [address] [place] [address] Dr. Silvestre Williamson Cholesterol.total/ Cholesterol in HDL [Mass ratio] 2.2 {ratio} Normal [facility] Comment on above: Performed By: #### T SH, FT3 #### [facility] [address] [place] [address] Dr. Silvestre Williamson HDL NORMAL > or = 60 mg/dl - LO W CARDIOVASCULAR RISK <40 mg/dl - HIGH CARDIOVASCULAR RISK Normal [facility] Comment on above: Performed By: #### T SH, FT3 #### [facility] [address] [place] [address] Dr. Silvestre Williamson LDL CALC NORMAL SEE BELOW Normal [facility] Comment on above: Result Comment: <100 mg/dl OPTIMAL 100 - 129 mg/dl NEAR OR ABOVE OPTIMAL 130 - 159 mg/dl BORDERLINE HIGH 160 - 189 mg/dl HIGH >190 mg/dl VERY HIGH Performed By: #### T SH, FT3 #### [facility] [address] [place] [address] Dr. Silvestre Williamson Triglyceride [Mass/Vol] 42 mg/dL Normal <=150 [facility] Comment on above: Performed By: #### T SH, FT3 #### [facility] [address] [place] [address] Dr. Silvestre Williamson VLDL CALC 8.4 mg/dL Normal [facility] Comment on above: Performed By: #### T SH, FT3 #### [facility] [address] [place] [address] Dr. Silvestre Williamson PROF 14(COMP METB)on 022 Albumin [Mass/Vol] 3.4 g/dL Normal 3.4-5.0 [facility] Comment on above: Performed By: #### T SH, FT3 #### [facility] [address] [place] [address] Dr. Silvestre Williamson Albumin/Globulin [Mass ratio] 1.0 {ratio} Normal [facility] Comment on above: Performed By: #### T SH, FT3 #### [facility] [address] [place] [address] Dr. Silvestre Williamson ALP [Catalytic activity/Vol] 62 U/L Normal 46-116 [facility] Comment on above: Performed By: #### T SH, FT3 #### [facility] [address] [place] [address] Dr. Silvestre Williamson ALT [Catalytic activity/Vol] 25 U/L Normal 14-59 [facility] Comment on above: Performed By: #### T SH, FT3 #### [facility] [address] [place] [address] Dr. Silvestre Williamson Anion gap [Moles/Vol] 9.9 mmol/L Normal [facility] Comment on above: Performed By: #### T SH, FT3 #### [facility] [address] [place] [address] Dr. Silvestre Williamson AST [Catalytic activity/Vol] 13 U/L Critically low 15-37 [facility] Comment on above: Performed By: #### T SH, FT3 #### [facility] [address] [place] [address] Dr. Silvestre Williamson Bilirubin [Mass/Vol] 0.4 mg/dL Normal 0.2-1.0 [facility] Comment on above: Performed By: #### T SH, FT3 #### [facility] [address] [place] [address] Dr. Silvestre Williamson Calcium [Mass/Vol] 9.2 mg/dL Normal 8.5-10.1 [facility] Comment on above: Performed By: #### T NEGAR, FT3 #### [facility] [address] [place] [address] Dr. Silvestre Williamson Chloride [Moles/Vol] 104 mmol/L Normal 98-107 [facility] Comment on above: Performed By: #### T SH, FT3 #### [facility] [address] [place] [address] Dr. Silvestre Williamson CO2 [Moles/Vol] 31.6 mmol/L Normal 21.0-32.0 [facility] Comment on above: Performed By: #### T SH, FT3 #### [facility] [address] [place] [address] Dr. Silvestre Williamson Creatinine [Mass/Vol] 0.83 mg/dL Normal 0.55-1.02 [facility] Comment on above: Performed By: #### T SH, FT3 #### [facility] [address] [place] [address] Dr. Silvestre Williamson EGFR-AF [place] >60 Normal >=60 [facility] Comment on above: Performed By: #### T SH, FT3 #### [facility] [address] [place] [address] Dr. Silvestre Williamson EGFR-NON AF [place] >60 Normal >=60 [facility] Comment on above: Performed By: #### T SH, FT3 #### [facility] [address] [place] [address] Dr. Silvestre Williamson Globulin (S) [Mass/Vol] 3.5 g/dL Normal [facility] Comment on above: Performed By: #### T SH, FT3 #### [facility] [address] [place] [address] Dr. Silvestre Williamson Glucose [Mass/Vol] 96 mg/dL Normal 74-106 [facility] Comment on above: Performed By: #### T SH, FT3 #### [facility] [address] [place] [address] Dr. Silvestre Williamson Potassium [Moles/Vol] 4.5 mmol/L Normal 3.5-5.1 [facility] Comment on above: Performed By: #### T SH, FT3 #### [facility] [address] [place] [address] Dr. Silvestre Williamson Protein [Mass/Vol] 6.9 g/dL Normal 6.4-8.2 [facility] Comment on above: Performed By: #### T SH, FT3 #### [facility] [address] [place] [address] Dr. Silvestre Williamson Sodium [Moles/Vol] 141 mmol/L Normal 136-145 [facility] Comment on above: Performed By: #### T SH, FT3 #### [facility] [address] [place] [address] Dr. Silvestre Williamson Urea nitrogen [Mass/Vol] 11.0 mg/dL Normal 7.0-18.0 [facility] Comment on above: Performed By: #### T SH, FT3 #### [facility] [address] [place], [place] [address] Dr. Silvestre Williamson Urea nitrogen/Creatinin e [Mass ratio] 13.3 mg/mg Normal [facility] Comment on above: Performed By: #### T SH, FT3 #### [facility] [address] [place], [place] [address] Dr. Silvestre Reddy 03-01-2022 CNPN Telephone ([facility]) YANET ADAMES ([id number]) 1940 F Date Time Provider Department 03/01/22 NATALY BATISTA During your visit today, we recorded the following information about you: Nataly Batista RN 03/01/2022 1:46 PM Signed Received call from Yamilet at [facility] Scheduling stating pt is scheduled for mammogram there but order is for screening and pt is less than 5 years out from her breast cancer so they would like dx ria order. MOR: Order pending. Please review and sign if agreeable. BORA iSddiqi RN 03/01/2022 3:43 PM Signed Order faxed. 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 - MULTI-VITAMIN ORAL [...] VAGINALLY THREE TIMES WEEKLY - thyroid, pork, (AUTHORIZATION REPRESENTATIVE THYROID) 60 mg AUTHORIZATION REPRESENTATIVE Thyroid 60 mg tablet TAKE 1 TABLET [...] mouth once daily. - calcium carbonate/vitamin D2 (KEUVJWP-525-D ORAL) Take by mouth. - Magnesium 250 [...] Status:Closed by NATALY BATISTA on 03/01/22 Normal [facility] CBC W Auto Differential pane l (Bld)on 01-11-2022 Basophils (Bld) [#/Vol] 0.03 10*3/uL Normal <0.11 [facility] Comment on above: Order Comment: Speci men Type: BLOOD SPECIMEN Ordering Facility: [facility] Address: [address] [place] [address] Performed By: #### 5 7021-8 #### [facility] CLIA [id number] [address] [place] [address] Basophils/100 WBC (Bld) 0.5 % Normal [facility] Comment on above: Order Comment: Speci men Type: BLOOD SPECIMEN Ordering Facility: [facility] Address: [address] [place] [address] Performed By: #### 5 7021-8 #### [facility] CLIA [id number] [address] [place] [address]104 Differential cell count method Nom (Bld) Auto Normal [facility] Comment on above: Order Comment: Speci men Type: BLOOD SPECIMEN Ordering Facility: [facility] Address: [address] [place] [address] Performed By: #### 5 7021-8 #### [facility] CLIA [id number] [address] [place] [address] Eosinophils (Bld) [#/Vol] 0.20 10*3/uL Normal <0.46 [facility] Comment on above: Order Comment: Speci men Type: BLOOD SPECIMEN Ordering Facility: [facility] Address: [address] [place] [address] Performed By: #### 5 7021-8 #### [facility] CLIA [id number] [address] [place] [address] 63760 Eosinophils/100 WBC (Bld) 3.0 % Normal [facility] Comment on above: Order Comment: Speci men Type: BLOOD SPECIMEN Ordering Facility: [facility] Address: [address] [place] [address] Performed By: #### 5 7021-8 #### [facility] CLIA [id number] [address] [place] [address]308 Erythrocyte distribution width (RBC) [Ratio] 14.1 % Normal 11.5-15.0 [facility] Comment on above: Order Comment: Speci men Type: BLOOD SPECIMEN Ordering Facility: [facility] Address: [address] [place] [address] Performed By: #### 5 7021-8 #### [facility] CLIA [id number] [address] [place] [address]40 Hematocrit (Bld) [Volume fraction] 40.6 % Normal 36.0-46.0 [facility] Comment on above: Order Comment: Speci men Type: BLOOD SPECIMEN Ordering Facility: [facility] Address: [address] [place] [address] Performed By: #### 5 7021-8 #### [facility] CLIA [id number] [address] [place] [address]32 Hemoglobin (Bld) [Mass/Vol] 13.3 g/dL Normal 11.5-15.5 [facility] Comment on above: Order Comment: Speci men Type: BLOOD SPECIMEN Ordering Facility: [facility] Address: [address] [place] [address] Performed By: #### 5 7021-8 #### [facility] CLIA [id number] [address] [place] [address] 41402 IMMATURE GRAN % 0.2 % Normal [facility] Comment on above: Order Comment: Speci men Type: BLOOD SPECIMEN Ordering Facility: [facility] Address: [address] [place] [address] Performed By: #### 5 7021-8 #### [facility] CLIA [id number] [address] [place] [address]20 IMMATURE GRAN ABS <0.03 Normal <0.10 [facility] Comment on above: Order Comment: Speci men Type: BLOOD SPECIMEN Ordering Facility: [facility] Address: [address] [place] [address] Performed By: #### 5 7021-8 #### [facility] CLIA [id number] [address] [place] [address] 41825 Lymphocytes (Bld) [#/Vol] 1.62 10*3/uL Normal 1.00-4.00 [facility] Comment on above: Order Comment: Speci men Type: BLOOD SPECIMEN Ordering Facility: [facility] Address: [address] [place] [address] Performed By: #### 5 7021-8 #### [facility] CLIA [id number] [address] [place] [address] 06696 Lymphocytes/100 WBC (Bld) 24.5 % Normal [facility] Comment on above: Order Comment: Speci men Type: BLOOD SPECIMEN Ordering Facility: [facility] Address: [address] [place] [address] Performed By: #### 5 7021-8 #### [facility] CLIA [id number] [address] [place] [address] 96499 MCH (RBC) [Entitic mass] 30.9 pg Normal 26.0-34.0 [facility] Comment on above: Order Comment: Speci men Type: BLOOD SPECIMEN Ordering Facility: [facility] Address: [address] [place] [address] Performed By: #### 5 7021-8 #### [facility] CLIA [id number] [address] [place] [address] 31121 MCHC (RBC) [Mass/Vol] 32.8 g/dL Normal 30.5-36.0 [facility] Comment on above: Order Comment: Speci men Type: BLOOD SPECIMEN Ordering Facility: [facility] Address: [address] [place] [address] Performed By: #### 5 7021-8 #### [facility] CLIA [id number] [address] [place] [address] 19303 MCV (RBC) [Entitic vol] 94.2 fL Normal 80.0-100.0 [facility] Comment on above: Order Comment: Speci men Type: BLOOD SPECIMEN Ordering Facility: [facility] Address: [address] [place] [address] Performed By: #### 5 7021-8 #### [facility] CLIA [id number] [address] [place] [address] 90839 Monocytes (Bld) [#/Vol] 0.49 10*3/uL Normal <0.87 [facility] Comment on above: Order Comment: Speci men Type: BLOOD SPECIMEN Ordering Facility: [facility] Address: [address] [place] [address] Performed By: #### 5 7021-8 #### [facility] CLIA [id number] [address] [place] [address] 94950 Monocytes/100 WBC (Bld) 7.4 % Normal [facility] Comment on above: Order Comment: Speci men Type: BLOOD SPECIMEN Ordering Facility: [facility] Address: [address] [place], [place] [address] Performed By: #### 5 7021-8 #### [facility] CLIA [id number] [address] [place] [address] 76253 Neutrophils (Bld) [#/Vol] 4.25 10*3/uL Normal 1.45-7.50 [facility] Comment on above: Order Comment: Speci men Type: BLOOD SPECIMEN Ordering Facility: [facility] Address: [address] [place], [place] [id number] Performed By: #### 5 7021-8 #### [facility] CLIA [id number] [address] [place] [address] 33527 Neutrophils/100 WBC (Bld) 64.4 % Normal [facility] Comment on above: Order Comment: Speci men Type: BLOOD SPECIMEN Ordering Facility: [facility] Address: [address] [place] [address] Performed By: #### 5 7021-8 #### [facility] CLIA [id number] [address] [place] [address] 03709 Nucleated RBC (Bld) [#/Vol] 10*3/uL Normal <0.01 [facility] Comment on above: Order Comment: Speci men Type: BLOOD SPECIMEN Ordering Facility: [facility] Address: [address] [place] [address] Performed By: #### 5 7021-8 #### [facility] CLIA [id number] [address] [place] [address] 00734 Nucleated RBC/100 WBC (Bld) [Ratio] 0.0 /100 WBC Normal [facility] Comment on above: Order Comment: Speci men Type: BLOOD SPECIMEN Ordering Facility: [facility] Address: [address] [place] [address] Performed By: #### 5 7021-8 #### [facility] CLIA [id number] [address] [place] [address] 15272 Platelet mean volume (Bld) [Entitic vol] 9.8 fL Normal 9.0-12.7 [facility] Comment on above: Order Comment: Speci men Type: BLOOD SPECIMEN Ordering Facility: [facility] Address: [address] [place], [place] [id number] Performed By: #### 5 7021-8 #### [facility] CLIA [id number] [address] [place] [address] 55300 Platelets (Bld) [#/Vol] 222 10*3/uL Normal 150-400 [facility] Comment on above: Order Comment: Speci men Type: BLOOD SPECIMEN Ordering Facility: [facility] Address: [address] [place], [place] [id number] Performed By: #### 5 7021-8 #### [facility] CLIA [id number] [address] [place] [address] 37208 RBC (Bld) [#/Vol] 4.31 10*6/uL Normal 3.90-5.20 [facility] Comment on above: Order Comment: Speci men Type: BLOOD SPECIMEN Ordering Facility: [facility] Address: [address] [place] [address] Performed By: #### 5 7021-8 #### [facility] CLIA [id number] [address] [place] [address] 13891 WBC (Bld) [#/Vol] 6.60 10*3/uL Normal 3.70-11.00 [facility] Comment on above: Order Comment: Speci men Type: BLOOD SPECIMEN Ordering Facility: [facility] Address: [address] [place] [address] Performed By: #### 5 7021-8 #### [facility] CLIA [id number] [address] [place] [address] 48541 CNOVSPon 01-11-2022 OVS Visit (SP) Office ([facility]) YANET ADAMES ([id number]) 1940 F Date Time Provider Department 01/11/22 1:00 PM PRANAV BERMUDEZ During your visit today, we recorded the following information about you: Temperature Pulse Respiration Blood pressure 97.1 degrees 81/minute 16/minute 131/79 Weight Height 62 kg 1.499 m Pranav Bermudez MD 01/11/2022 8:32 PM Signed NAME: Yanet Adames CLINIC NO.: [id number] DATE OF SERVICE: January 11, 2022 Some [...] that her diagnosis was found originally in [place] after which she decided to move up here permanently. Her is retired from [email or web address]. ? Some background history that are reviewed today reveals that she originally presented in consultation 02/06/18 with a new diagnosis of breast cancer. She was taken to lumpectomy 01/24/18 with the finding of a 2 cm sized ER and KY positive, HER 2 negative breast cancer. 0/5 [...] right axillary node excision and lumpectomy 2cm ER/KY positive 100%/80%, Her2 negative by FISH right [...] Wt 13 (more content not included)... Normal [facility] Comprehensive metabolic 2000 panelon 01-11-2022 Albumin [Mass/Vol] 4.4 g/dL Normal 3.9-4.9 [facility] Comment on above: Order Comment: Speci men Type: BLOOD SPECIMEN Ordering Facility: [facility] Address: [address] [place] [address] Performed By: #### 2 4323-8 #### [facility] CLIA [id number] [address] [place] [address] 29723 ALP [Catalytic activity/Vol] 61 U/L Normal 34-123 [facility] Comment on above: Order Comment: Speci men Type: BLOOD SPECIMEN Ordering Facility: [facility] Address: [address] [place] [address] Performed By: #### 2 4323-8 #### [facility] CLIA [id number] [address] [place] [address] 38928 ALT [Catalytic activity/Vol] 12 U/L Normal 7-38 [facility] Comment on above: Order Comment: Speci men Type: BLOOD SPECIMEN Ordering Facility: [facility] Address: [address] [place] [address] Performed By: #### 2 4323-8 #### [facility] CLIA [id number] [address] [place] [address] 77557 Anion gap [Moles/Vol] 6 mmol/L Low 9-18 [facility] Comment on above: Order Comment: Speci men Type: BLOOD SPECIMEN Ordering Facility: [facility] Address: [address] [place] [address] Performed By: #### 2 4323-8 #### [facility] CLIA [id number] [address] [place] [address] 90987 AST [Catalytic activity/Vol] 14 U/L Normal 13-35 [facility] Comment on above: Order Comment: Speci men Type: BLOOD SPECIMEN Ordering Facility: [facility] Address: [address] [place] [address] Performed By: #### 2 4323-8 #### [facility] CLIA [id number] [address] [place] [address] Bilirubin [Mass/Vol] 0.3 mg/dL Normal 0.2-1.3 [facility] Comment on above: Order Comment: Speci men Type: BLOOD SPECIMEN Ordering Facility: [facility] Address: [address] [place] [address] Performed By: #### 2 4323-8 #### [facility] CLIA [id number] [address] [place] [address] 35417 Calcium [Mass/Vol] 9.8 mg/dL Normal 8.5-10.2 [facility] Comment on above: Order Comment: Speci men Type: BLOOD SPECIMEN Ordering Facility: [facility] Address: [address] [place] [address] Performed By: #### 2 4323-8 #### [facility] CLIA [id number] [address] [place] [address] 47694 Chloride [Moles/Vol] 103 mmol/L Normal 97-105 [facility] Comment on above: Order Comment: Speci men Type: BLOOD SPECIMEN Ordering Facility: [facility] Address: [address] [place], [place] [id number] Performed By: #### 2 4323-8 #### [facility] CLIA [id number] [address] [place] [address] 40028 CO2 [Moles/Vol] 27 mmol/L Normal 22-30 [facility] Comment on above: Order Comment: Speci men Type: BLOOD SPECIMEN Ordering Facility: [facility] Address: [address] [place] [address] Performed By: #### 2 4323-8 #### [facility] CLIA [id number] [address] [place] [address] 89419 Creatinine [Mass/Vol] 0.93 mg/dL Normal 0.58-0.96 [facility] Comment on above: Order Comment: Corey guillen Type: BLOOD SPECIMEN Ordering Facility: [facility] Address: [address] [id number] Performed By: #### 2 4323-8 #### [facility] CLIA [id number] [address] [place] [address] 13762 ESTIMATED GLOMERULAR FILTRATION RATE 62 mL/min/1.73m??? Normal >=60 [facility] Comment on above: Order Comment: Corey guillen Type: BLOOD SPECIMEN Ordering Facility: [facility] Address: [address] [place] [address] Result Comment: Mag mated Glomerular Filtration Rate [...] GFR. Performed By: #### 2 4323-8 #### [facility] CLIA [id number] [address] [place] [address] 71867 Glucose [Mass/Vol] 97 mg/dL Normal 74-99 [facility] Comment on above: Order Comment: Corey guillen Type: BLOOD SPECIMEN Ordering Facility: [facility] Address: [address] [place] [address] Result Comment: The [place] Diabetes Association (ADA) provides guidance for cutoff [...] Standards of Medical Care in Diabetes 2016, [place] Diabetes Association. Diabetes Care. 2016.39(Suppl 1). Performed By: #### 2 4323-8 #### [facility] CLIA [id number] [address] [place] [address] 53223 Potassium [Moles/Vol] 4.1 mmol/L Normal 3.7-5.1 [facility] Comment on above: Order Comment: Speci men Type: BLOOD SPECIMEN Ordering Facility: [facility] Address: [address] [place] [address] Performed By: #### 2 4323-8 #### [facility] CLIA [id number] [address] [place] [address] 34466 Protein [Mass/Vol] 7.2 g/dL Normal 6.3-8.0 [facility] Comment on above: Order Comment: Speci men Type: BLOOD SPECIMEN Ordering Facility[facility] Address: [address] [place] [address] Performed By: #### 2 4323-8 #### [facility] CLIA [id number] [address] [place] [address] 03879 Sodium [Moles/Vol] 136 mmol/L Normal 136-144 [facility] Comment on above: Order Comment: Speci men Type: BLOOD SPECIMEN Ordering Facility[facility] Address: [address] [place] [address] Performed By: #### 2 4323-8 #### [facility] CLIA [id number] [address] [place] [address] 38561 Urea nitrogen [Mass/Vol] 25 mg/dL High 7-21 [facility] Comment on above: Order Comment: Speci men Type: BLOOD SPECIMEN Ordering Facility: [facility] Address: [address] [place] [address] Performed By: #### 2 4323-8 #### [facility] CLIA [id number] [address] [place] [address] 30378 CNPNon 01-03-2022 [facility] Telephone ([facility]AS[facility]) YANET ADAMES ([id number]) 1940 F Date Time Provider Department 01/03/22 [...] [Z13.820] Order(s):CBC + DIFF [SQCBCDIF] Order #: [id number] FUTURE COMP METABOLIC PANEL [SQCMP] Order #: [id number] FUTURE Prescriptions as of 01/04/2022 - anastrozole (ARIMIDEX) 1 mg tablet TAKE 1 TABLET BY MOUTH EVERY DAY - solifenacin (VESICARE) 5 mg tablet TAKE 1 TABLET BY MOUTH DAILY FOR 2 WEEKS THEN INCREASE TO 2 TABLETS DAILY TOLERATING SIDE EFFECTS - STRONTIUM [id number]-E7-R53-FA ORAL Take by mouth. - MULTI-VITAMIN ORAL [...] VAGINALLY THREE TIMES WEEKLY - thyroid, pork, (AUTHORIZATION REPRESENTATIVE THYROID) 60 mg AUTHORIZATION REPRESENTATIVE Thyroid 60 mg tablet TAKE 1 TABLET [...] mouth once daily. - calcium carbonate/vitamin D2 (CVGWQTF-045-U ORAL) Take by mouth. - Magnesium 250 [...] osteoporosis without current pathol*01/12/2021 Encounter Status:Closed by KARLENEDecember on 01/03/22 [facility] CNOVSPon 07-13-2021 OVSP Visit (SP) Office ([facility]) YANET ADAMES ([id number]) 1940 F Date Time Provider Department 07/13/21 10:45 AM PRANAV BERMUDEZ During your visit today, we recorded the following information about you: Temperature Pulse Respiration Blood pressure 97 degrees 91/minute 16/minute 151/80 Weight Height 59.1 kg 1.499 m Pranav Bermudez MD 07/13/2021 1:04 PM Signed NAME: Yanet Adames CLINIC NO.: [id number] DATE OF SERVICE: July 13, 2021 Some [...] that her diagnosis was found originally in [place] after which she decided to move up here permanently. Her is retired from [email or web address]. ? Some background history that are reviewed today reveals that she originally presented in consultation 02/06/18 with a new diagnosis of breast cancer. She was taken to lumpectomy 01/24/18 with the finding of a 2 cm sized ER and KY positive, HER 2 negative breast cancer. 0/5 [...] right axillary node excision and lumpectomy 2cm ER/KY positive 100%/80%, Her2 negative by FISH right [...] be respirin (more content not included)... Normal [facility] MR Brain WO and W contrast I Von 04-28-2021 IMPRESSION: NORMAL MRI OF THE BRAIN WITHOUT [...] OTHERWISE NORMAL IN APPEARANCE WITHOUT PATHOLOGIC ENHANCEMENT. Fisheries Technician: MACHO Transcribe Date/Time: Apr 28 2021 10:16A Dictated by : YURIY RODGERS MD This examination was interpreted and the report reviewed and electronically signed by: YURIY RODGERS MD on Apr 28 2021 10:20AM [facility] DIVISION OF RADIOLOGY * * *Final Report* * * DATE OF EXAM: Apr 28 2021 10:09AM [facility] 0295 - MRI BRAIN WO/W IVCON / [...] and visualized paranasal sinuses are grossly clear. DIVISION OF RADIOLOGY Provider, [facility] - 04/28/2021 * * *Final Report* * * DATE OF EXAM: Apr 28 2021 10:09AM [facility] 0295 - MRI BRAIN WO/W IVCON / [...] and visualized paranasal sinuses are grossly clear. IMPRESSION IMPRESSION: NORMAL MRI OF THE BRAIN WITHOUT [...] OTHERWISE NORMAL IN APPEARANCE WITHOUT PATHOLOGIC ENHANCEMENT. Fisheries Technician: PSCB Transcribe Date/Time: Apr 28 2021 10:16A Dictated by : YURIY RODGERS MD This examination was interpreted and the report reviewed and electronically signed by: YURIY RODGERS MD on Apr 28 2021 10:20AM EST [facility] Radiology Study observation (narrative) [facility] MR Brain WO and W contrast I VOrdered By: [facility] Provider on 04-28-2021 [facility] MRI BRAIN WO/W IVCONon 04-28 MRI BRAIN [...] OTHERWISE NORMAL IN APPEARANCE WITHOUT PATHOLOGIC ENHANCEMENT. Fisheries Technician: [facility] Transcribe Date/Time: Apr 28 2021 10:16A Dictated by : YURIY RODGERS MD This examination was interpreted and the report reviewed and electronically signed by: YURIY RODGERS MD on Apr 28 2021 10:20AM EST [id number] Normal [facility] CNOVon 04-14-2021 CNOV Office Visit ([facility] ) YANET ADAMES ([id number]) 1940 F Date Time Provider Department 04/14/21 3:00 PM OCT EXAM READ [facility] During your visit today, we recorded the following information about you: Nisreen De La Cruz MA 04/14/2021 3:24 PM Signed OCT completed per Epic order Nisreen De La Cruz CMA April 14, 2021 3:23 PM Referring Provider: MARCUS MUNOZ [[id number]] Allergies As of Date: 04/14/2021 Noted Allergy [...] VAGINALLY THREE TIMES WEEKLY - thyroid, pork, (AUTHORIZATION REPRESENTATIVE THYROID) 60 mg AUTHORIZATION REPRESENTATIVE Thyroid 60 mg tablet TAKE 1 TABLET [...] mouth once daily. - calcium carbonate/vitamin D2 (MOQESSA-362-V ORAL) Take by mouth. - Magnesium 250 [...] Notes: >> Nisreen De La Cruz MA Fri Apr 14, 2021 3:23 PM Status: Signed OCT completed per [facility] order Nisreen De La Cruz CMA April 14, 2021 3:23 PM Encounter Status:Closed by BRENDA JUNIOR on 04/30/21 Normal [facility] CNOV Office Visit ([facility] ) YANET ADAMES ([id number]) 1940 F Date Time Provider Department 04/14/21 2:00 PM MARCUS MUNOZ During your visit today, we recorded the following information about you: Pulse Blood pressure Weight Height 87/minute 149/51 57.2 kg 1.499 m Marcus Munoz MD 04/18/2021 8:42 AM [facility] MULTIPLE SCLEROSIS NEW PATIENT EVALUATION/CONSULTATION Referral source: Shadia Barrera OD [address] [place] [address] Also followed by: Patient Care Team: Homero [...] a past medical history of stage I ER/KY+ve HER-2neu -ve breast cancer s/p lumpectomy, radiation and adjuvant anastrazole, Hyppothyroidism, hypercholesterolemia, and osteoporosis. She presents today with a chief concern of abnormal visual starkey testing (perimetry). She was getting her routine eye examination when the v groove cutter/optomet rist who noted an abnormality on her [...] VAGINALLY THREE TIMES WEEKLY - thyroid, pork, (AUTHORIZATION REPRESENTATIVE THYROID) 60 mg AUTHORIZATION REPRESENTATIVE Thyroid 60 mg tablet TAKE 1 TABLET BY MOUTH TWICE A DAY ON EMPTY STOMACH - sucralfate (CARAFATE) 1 gram tablet Carafate 1 gram tablet Take 1 tablet twice a day by oral route. - CALCIUM CITRATE ORAL Take by mouth. (more content not included)... Normal [facility] Vital Signs Date Time Vital Sign Value Performing Clinician Facility 07-14-2024 12:03-0400 Body height 149.9 cm Homero Moses MD Work Phone: [facility] 07-14-2024 12:03-0400 Body mass index (BMI) [Ratio] 26.26 kg/m2 Homero Moses MD Work Phone: [facility] 07-14-2024 12:03-0400 Body weight 58.97 kg Homero Moses MD Work Phone: [facility] 06-23-2024 08:46-0400 Body height 149.9 cm Homero Moses MD Work Phone: [facility] 06-23-2024 08:46-0400 Body mass index (BMI) [Ratio] 26.26 kg/m2 Homero Moses MD Work Phone: [facility] 06-23-2024 08:46-0400 Body weight 58.97 kg Homero Moses MD Work Phone: [facility] 06-23-2024 08:46-0400 Diastolic blood pressure 70 mm[Hg] Homero Moses MD Work Phone: [facility] 06-23-2024 08:46-0400 Heart rate 83 /min Homero Moses MD Work Phone: [facility] 06-23-2024 08:46-0400 SaO2% (BldA) [Mass fraction] 97 % Homero Moses MD Work Phone: [facility] 06-23-2024 08:46-0400 Systolic blood pressure 120 mm[Hg] Homero Moses MD Work Phone: [facility] 03-24-2024 13:59-0400 Blood Pressure Location NATHALIE ROBERT [facility] 03-24-2024 13:59-0400 Diastolic blood pressure 76 mm[Hg] NATHALIE ROBERT [facility] 03-24-2024 13:59-0400 Heart rate 80 /min NATHALIE ROBERT [facility] 03-24-2024 13:59-0400 Respiratory rate 16 /min NATHALIE ROBERT [facility] 03-24-2024 13:59-0400 Systolic blood pressure 127 mm[Hg] NATHALIE ROBERT [facility] 01-21-2024 15:09-0400 Blood Pressure Location NATHALIE ROBERT [facility] 01-21-2024 15:09-0400 Body temperature 98.06 [degF] NATHALIE ROBERT [facility] 01-21-2024 15:09-0400 Diastolic blood pressure 58 mm[Hg] NATHALIE ROBERT [facility] 01-21-2024 15:09-0400 Heart rate 84 /min NATHALIE ROBERT [facility] 01-21-2024 15:09-0400 Respiratory rate 16 /min NATHALIE ROBERT [facility] 01-21-2024 15:09-0400 Systolic blood pressure 112 mm[Hg] NATHALIE ROBERT [facility] 11-06-2023 11:02-0500 Body height 149.9 cm Hmoero Moses MD Work Phone: [facility] 11-06-2023 11:02-0500 Body mass index (BMI) [Ratio] 27.27 kg/m2 Homero Moses MD Work Phone: [facility] 11-06-2023 11:020500 Body weight 61.24 kg Homero Moses MD Work Phone: [facility] 01-16-2023 15:29-0400 Blood Pressure Location NATHALIE ROBERT [facility] 01-16-2023 15:29-0400 Diastolic blood pressure 74 mm[Hg] NATHALIE ROBERT [facility] 01-16-2023 15:29-0400 Heart rate 68 /min NATHALIE ROBERT [facility] 01-16-2023 15:29-0400 Respiratory rate 16 /min NATHALIE ROBERT [facility] 01-16-2023 15:29-0400 Systolic blood pressure 128 mm[Hg] NATHALIE ROBERT [facility] 10-10-2022 09:09-0500 Blood Pressure Location Milly Jolley [facility] 10-10-2022 09:09-0500 Diastolic blood pressure 70 mm[Hg] Milly Jolley [facility] 10-10-2022 09:09-0500 Heart rate 76 /min Mil[facility] Jolley [facility] 10-10-2022 09:09-0500 Respiratory rate 16 /min Milly Jolley [facility] 10-10-2022 09:09-0500 Systolic blood pressure 117 mm[Hg] Milly Jolley [facility] 01-11-2022 12:33-0400 Body height 149.9 cm Pranav Bermudez MD Work Phone: [facility] 01-11-2022 12:33-0400 Body temperature 97.11 [degF] Pranav Bermudez MD Work Phone: [facility] 01-11-2022 12:33-0400 Body weight 61.96 kg Pranav Bermudez MD Work Phone: [facility] 01-11-2022 12:33-0400 Diastolic blood pressure 79 mm[Hg] Pranav Bermudez MD Work Phone: [facility] 01-11-2022 12:33-0400 Heart rate 81 /min Pranav Bermudez MD Work Phone: [facility] 01-11-2022 12:33-0400 Respiratory rate 16 /min Pranav Bermudez MD Work Phone: [facility] 01-11-2022 12:33-0400 SaO2% (BldA) [Mass fraction] 98 % Pranav Bermudez MD Work Phone: [facility] 01-11-2022 12:33-0400 Systolic blood pressure 131 mm[Hg] Pranav Bermudez MD Work Phone: [facility] Encounters Encounter Date Encounter Type Care Provider Facility Start: 07-14-2024 End: 07-14-2024 Varun Moses MD Work Phone: [facility] Start: 07-14-2024 End: 07-14-2024 Varun Moses MD Work Phone: [facility] Start: 07-14-2024 End: 07-14-2024 ambulatory HOMERO MOSES Not Available Start: 07-14-2024 End: 07-14-2024 Office outpatient visit 25 minutes Homero Moses MD Work Phone: [facility] Comment on above: [id number] condit ion (Primary Dx); Rhinorrhea; Enlarged tonsils; Myalgia, multiple sites; Overweight Start: 06-23-2024 End: 06-23-2024 Office outpatient visit 15 minutes Homero Moses MD Work Phone: [facility] Comment on above: COVID-19 (Primary Dx ) Start: 06-23-2024 End: 06-23-2024 ambulatory HOMERO MOSES Not Available Start: 05-14-2024 End: 06-24-2024 Pre-admission assessment Aldair TURCIOS [facility] Start: 05-04-2024 End: 05-04-2024 ambulatory HOMERO MOSES Not Available Start: 03-24-2024 End: 03-24-2024 ambulatory NATHALIE JONES Facility:[facility] Start: 03-24-2024 End: 03-24-2024 Patient encounter procedure NATHALIE JONES [facility] Start: 03-17-2024 End: 03-17-2024 ambulatory HOMERO MOSES Not Available Start: 03-04-2024 End: 03-04-2024 ambulatory HOMERO MOSES Not Available Start: 02-10-2024 End: 02-10-2024 ambulatory HOMERO MOSES Not Available Start: 01-21-2024 End: 01-21-2024 ambulatory NATHALIE JONES Facility:[facility] Start: 01-21-2024 End: 01-21-2024 Patient encounter procedure NATHALIE JONES [facility] Start: 11-06-2023 Bamboo flowsheet Homero sharma MD Work Phone: [facility] Start: 11-06-2023 Bamboo flowsheet Homero sharma MD Work Phone: [facility] Start: 11-06-2023 End: 11-06-2023 Office outpatient visit 25 minutes Homero Moses MD Work Phone: [facility] Comment on above: Cerebral meningioma (CMS/HCC) (Primary Dx); 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 Facility: Start: 01-16-2023 End: 01-16-2023 Patient encounter procedure NATHALIE JONES [facility] Start: 10-10-2022 End: 10-10-2022 Patient encounter procedure Milly Jolley [facility] Start: 08-29-2022 End: 08-30-[address] EDGARD AMOR . Facility:[facility] Start: 08-24-2022 End: 08-24-2022 ambulatory FLAVIA MCDANIELS Facility:[facility] Start: 07-25-2022 End: 07-26-[address] HOMERO MOSES . Facility:[facility] Start: 07-04-2022 End: 07-05-[address] HOMERO MOSES . Facility:[facility] Start: 06-06-2022 End: 06-07-[address] HOMERO MOSES . Facility:[facility] Start: 03-01-2022 Telephone encounter Nataly Batista RN [...] Pranav Bermudez MD Work Phone: [facility] Start: 04-28-2021 End: 04-28-2021 Subsequent hospital visit by physician [facility] Billie (1.5t) Work Phone: Radiology Comment on above: Diplopia [H53.2] Start: 01-07-2018 End: 01-08-2018 Ambulatory DEFAULT PHYSICIAN Facility:[facility] Procedures Date Procedure Procedure Detail Performing Clinician Start: 04-28-2021 Mri brain brain stem w/o w/contrast material Los Mitchell MD Start: 12-20-2020 Cystoscopy NATHALIE MONROE Start: 12-20-2020 Urodynamic studies Susan Jolley Start: 06-10-2019 Adult depression scr eening assessment [facility] [place] Work Phone: Start: 01-24-2018 Excision of mass Felix Freed Comment on above: x2 rt. breast w/ sen tinel node Start: 09-30-1994 Repair of stress incontinence by suprapubic sling Dorcasluciano Shola Start: 09-30-1988 H/O: hysterectomy Levar del real Shola Start: 09-30-1975 Bilateral tubal ligation Milly Jolley Appendectomy Milly Jimenez s Bilateral carpal fozia chandni syndrome (disorder) Milly Jolley Bilateral cataracts (disorder) Milly Jolley Colonoscopy Milly Jimenez elvira Cystoscopy Milly Jimenez elvira Tonsillectomy Milly Flowers ns Plan of Treatment Date Care Activity Detail Author Start: 01-11-2025 DIABETES SCREEN DIABETES SCREEN [facility] Start: 01-11-2025 Diabetes Screening Diabetes Screenyolanda gómez [facility] Start: 09-10-2024 End: 09-10-2024 Patient encounter procedure 09/10/2024 11:30 AM EST Office Visit [facility] [address] [address] Homero Moses MD [address] [place] [address] (Fax) [facility] Start: 05-31-2024 Covid-19 Vaccine ( season) Covid-19 Vaccine ( season) [facility] Start: 05-31-2024 Influenza vaccination Influenza Vacc ine (#1) [facility] Start: 01-30-2024 End: 01-30-2024 Patient encounter procedure 01/30/2024 10:30 AM EDT Office Visit [facility] [address] [place] [address] Homero Moses MD [address] [place] [address] (Fax) [facility] Start: 12-14-2023 Medicare Annual Well ness (AWV) Medicare Annual Wellness (AWV) [facility] Start: 11-06-2023 End: 11-06-2023 Patient encounter procedure [facility] Comment on above: 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); White matter disease; Chronic fatigue; Overweight Start: 09-30-2023 Advance Directive Discussion Advance Directive Discussion [facility] Start: 05-31-2023 Influenza vaccination Influenza Vacc ine (#1) [facility] Start: 07-13-2022 End: 01-11-2023 CBC W Auto Differential panel - Blood CBC + DIFF Lab Routine Malignant neoplasm of right breast in female, estrogen receptor positive, unspecified site of breast (HCC) Osteoporosis due to aromatase inhibitor Expected: 07/13/2022 (Approximate), Expires: 01/11/2023 [facility] Work Phone: Comment on above: Expected: 07/13/2022 (Approximate), Expires: 01/11/2023 Start: 07-13-2022 End: 01-11-2023 Comprehensive metabolic 2000 panel - Serum or Plasma COMP METABOLIC PANEL Lab Routine Malignant neoplasm of right breast in female, estrogen receptor positive, unspecified site of breast (HCC) Osteoporosis due to aromatase inhibitor Expected: 07/13/2022 (Approximate), Expires: 01/11/2023 [facility] Work Phone: Comment on above: Expected: 07/13/2022 (Approximate), Expires: 01/11/2023 Start: 09-30-2021 ADVANCE DIRECTIVE DISCUSSION ADVANCE DIRECTIVE DISCUSSION [facility] Start: 06-10-2020 Adult depression screening assessment DEPRESSION SCREENING [facility] Start: 2016 RSV Vaccine (1 - 1-d ose 75+ series) RSV Vaccine (1 - 1-dose 75+ series) [facility] Start: 2006 BONE DENSITY BONE DENSITY [facility] Start: 2006 Pneumococcal Vaccine : 65+ (1 of 1 - PCV) Pneumococcal Vaccine: 65+ (1 of 1 - PCV) [facility] Start: 2006 PNEUMOVAX AGE 65 AND OVER WITH 5YR LOOKBACK (#1) PNEUMOVAX AGE 65 AND OVER WITH 5YR LOOKBACK (#1) [facility] Start: 2006 Screening for osteoporosis Bone Density Screening [facility] Start: 11-29-1991 SHINGRIX VACCINE (1 of 2) SHINGRIX VACCINE (1 of 2) [facility] Start: 1960 Urine microalbumin profile [facility] Start: 11-29-1959 Anxiety Screening Anxiety Screening [facility] Start: 11-29-1959 Depression Screening Depression Scre ening [facility] Start: 11-29-1947 Pneumococcal Vaccine : 65+ Years (1 - PCV) Pneumococcal Vaccine: 65+ Years (1 - PCV) [facility] Start: 11-29-1947 Pneumococcal Vaccine : 65+ Years (1 of 2 - PCV) Pneumococcal Vaccine: 65+ Years (1 of 2 - PCV) [facility] Start: 11-29-1947 PNEUMOCOCCAL: 65+ (1 - PCV) PNEUMOCOCCAL: 65+ (1 - PCV) [facility] End: 03-31-2023 Diagnostic mammography computer-aided detcj bi [facility]IA DIAGNOSTIC BILAT Radiology Routine Malignant neoplasm of lower-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, estrogen receptor positive (HCC) 1 Occurrences starting 03/01/2022 until 03/31/2023 [facility] Work Phone: Comment on above: 1 Occurrences starti ng 03/01/2022 until 03[facility] Immunization Date Immunization Notes Care Provider [facility] 08-29-2022 SARS-CoV-2 (COVID-19 ) mRNA-1273 vaccine NATHALIE JONES [facility] 07-25-2022 influenza virus vaccine, unspecified formulation NATHALIE JONES [facility] 07-25-2022 influenza, injectabl e, quadrivalent, preservative free Homero Moses MD Work Phone: [facility] 08-18-2021 influenza (aIIV4) vaccine, age 65+ yr, quadrivalent, PF (FLUAD QUADRIVALENT) [facility] Work Phone: [facility] 08-18-2021 influenza virus vaccine, unspecified formulation Milly Jolley [facility] 07-26-2021 SARS-CoV-2 (COVID-19 ) mRNA-1273 vaccine Milly Jolley [facility] 02-28-2021 COVID-19 vaccine, ag e 12+ yr (PFIZER-BIONTECH - PURPLE TOP) [facility] [place] Work Phone: [facility] 02-06-2021 COVID-19 vaccine, ag e 12+ yr (PFIZER-BIONTECH - PURPLE TOP) [facility] [place] Work Phone: [facility] 12-13-2020 COVID-19 vaccine, fu ll dose (MODERNA) [facility] [place] Work Phone: [facility] 12-12-2020 Moderna SARS-CoV-2 Vaccination Homero Moses MD Work Phone: [facility] 11-17-2020 COVID-19 vaccine, fu ll dose (MODERNA) [facility] [place] Work Phone: [facility] 11-16-2020 Moderna SARS-CoV-2 Vaccination Homero Moses MD Work Phone: [facility] 07-04-2020 influenza, high dose seasonal, preservative-free [facility] [place] Work Phone: [facility] 07-13-2019 influenza virus vaccine, unspecified formulation Milly Mariemons [facility] 07-13-2019 influenza, injectabl e, quadrivalent, preservative free [facility] [place] Work Phone: [facility] 10-07-2018 influenza virus vaccine, unspecified formulation Milly Mariemons [facility] 10-07-2018 influenza, high dose seasonal, preservative-free [facility] [place] Work Phone: [facility] 07-07-2018 influenza virus vaccine, unspecified formulation Milly Mariemons [facility] 07-07-2018 influenza, injectabl e, quadrivalent, preservative free [facility] [place] Work Phone: [facility] 07-08-2017 influenza virus vaccine, unspecified formulation Milly Jolley [facility] 07-08-2017 influenza, high dose seasonal, preservative-free [facility] [place] Work Phone: [facility] 07-08-2017 influenza, injectabl e, quadrivalent, preservative free [facility] [place] Work Phone: [facility] Payers Date Payer Category Payer Medicare DEVOTED MEDICARE DEVOTED HEALTH [id number] 2020-Present [phone] [address] YANIRA BRASWELL [address] HMO [id number] 2020 Medicare DEVOTED MEDICARE DEVOTED HEALTH [place] HMO [id number] 2020-Present [phone] [address] YANIRA BRASWELL [address] HMO [id number] 2020 Medicare (Managed Care) DEVOTED HEALTH [id number] 2020 Unknown 2020 Unknown [id number] Self-pay 1941 Unknown [id number] [id number]. 2.593 1941 Unknown [id number] 2.16.840.1.413858.3.579. 2.593 1941 Unknown [id number] 2.16.840.1.466990.3.579. 2.593 1941 Unknown [id number] 2.16.840.1.890294.3.579. 2.593 1941 Unknown [id number] 2.16.840.1.896853.3.579. 2.593 1941 Unknown [id number] 2.16.840.1.353365.3.579. 2.727 1941 Unknown [id number] 2.16.840.1.029244.3.579. 2.727 1941 Unknown [id number] 2.16.840.1.945900.3.579. 2.1259 1941 Unknown [id number] 2.16.840.1.142472.3.579. 2.1259 1941 Unknown [id number] 2.16.840.1.064412.3.579. 2.1259 1941 Unknown [id number] 2.16.840.1.051815.3.579. 2.1259 1941 Unknown [id number] 2.16.840.1.356210.3.579. 2.1259 1941 Unknown [id number] 2.16.840.1.395931.3.579. 2.1259 1941 Unknown [id number] 2.16.840.1.797118.3.579. 2.1259 1941 Unknown [id number] 2.16.840.1.596646.3.579. 2.1259 Unknown [id number] [id number]. 2.593 Social History Date Type Detail Facility Start: 02-06-2018 End: 08-08-2023 Tobacco smoking status NHIS Never smoked tobacco [facility] Start: 02-06-2018 End: 08-08-2023 Tobacco use and exposure Smokeless tobacco non-user [facility] Start: 01-11-2022 End: 07-14-2024 Alcohol intake Current drinker of alcohol (finding) [facility] Start: 01-11-2022 End: 05-01-2024 Alcohol intake [facility] Start: 1940 Sex Assigned At Not on file [facility] Start: 03-29-2021 End: 01-11-2022 Exposure to SARS-CoV-2 (event) Not sure [facility] Start: 08-12-2023 End: 05-01-2024 Sex Assigned At Female [facility] Tobacco smoking status Never [facility] Start: 05-20-2023 Alcohol Comment Caffeine intak e: occasionally [facility] Are you now , , , , never or living with a partner? [facility] How often to you hav e a drink containing alcohol? Monthly or less [facility] How many standard drinks containing alcohol do you have on a typical day? 1 or 2 [facility] How often do you hav e 6 or more drinks on 1 occasion? Never [facility] (I/We) worried ana er (my/our) food would run out before (I/we) got money to buy more. Never true [facility] In the past 12 month s, was there a time when you were not able to pay the mortgage or rent on time? No [facility] Goals Date Patient Goal Desired Activity /State Personal health goal Functional Status Date Assessment Result Facility 03-24-2024 Functional Status N/A [facility] 01-21-2024 Functional Status N/A [facility] 01-16-2023 Functional Status N/A [facility] 10-10-2022 Functional Status N/A [facility] [place] Clinical Notes 04-14-2021 to 07-14-2024 Homero Moses MD - 07/14/2024 11:45 AM Josh Moses MD - 06/23/2024 8:45 AM Josh Moses MD - 11/06/2023 11:00 AM Sam Bermudez MD - 01/11/2022 1:00 PM EDT Note Date & Type Note Facility 07-14-2024 History of Present illness Narrative Images from the original note were not included. Patient ID: Belkys Adames is a 83 y.o. female who presents for: Pt states she is still really congested from having covid weeks ago. She has no cough or shortness of breath. She is very tired and achey all over and having skin issues. On clarification, she describes rhinorrhea. She also describes her skin issues as the feeling of having bugs crawling underneath her skin. No sores. She also describes myalgias throughout all 4 extremities and even her muscle core. Review of Systems Constitutional: Negative for chills and fever. Respiratory: Negative for cough, shortness of breath and wheezing. Cardiovascular: Negative for chest pain and palpitations. Gastrointestinal: Negative for abdominal pain. Genitourinary: Negative for frequency and urgency. Objective In general the patient is pleasant and in no acute distress. Bilateral ears, canals are within normal limits. Right TM is transparent and somewhat retracted. Left TM is transparent and somewhat retracted. No fluid layer. Bilateral nares demonstrate mildly inflamed mucosa. Oropharynx has moist mucosa there is no specific evidence of thrush. There is minimal erythema of the pharynx. However, the right tonsil appears 2 to 3+ enlarged. Certainly asymmetric. It also just appears to my eye to be somewhat unusual. Shoddy bilateral anterior cervical adenopathy. No masses palpated. No signs of respiratory distress. Patient is speaking full sentences. There are symmetrical breath sounds. No rhonchi or rales are appreciated. No wheezes. Skin is warm and dry Several muscles are palpated and nontender to palpation. Visit Vitals Ht 4' 11 Wt 130 lb BMI 26.26 kg/m OB Status Postmenopausal Smoking Status Never BSA 1.57 m Allergies Allergen Reactions Memantine Other, Tinnitus and GI intolerance Very tired Milk-Related Compounds Other Reaction(s): Unknown Oxycodone-Acetaminophen Other Reaction(s): Mental Status Change makes me crazy Soybean-Containing Drug Products Other Reaction(s): Unknown Wheat Other Reaction(s): Unknown Current Outpatient Medications on File Prior to Visit Medication Sig Dispense Refill albuterol (2.5 MG/3ML) 0.083% nebulizer solution Take 3 mL (2.5 mg) by nebulization every 6 (six) hours if needed for wheezing 75 mL 0 aspirin 81 MG EC tablet Take 81 mg by mouth in the morning. buPROPion SR (Wellbutrin SR) 100 MG 12 hr tablet Take 1 tablet (100 mg) by mouth in the morning. Take before meals. Do not crush, chew, or split.. 90 tablet 1 CALCIUM CITRATE PO Take 1 tablet by mouth in the morning. cholecalciferol (Vitamin D-3) 25 MCG (1000 UT) capsule Take 1,000 Units by mouth in the morning. donepezil (Aricept) 10 MG tablet TAKE 1 TABLET BY MOUTH EVERY DAY AT BEDTIME FOR 30 DAYS 90 tablet 1 Fexofenadine-Pseudoephedrine (BENITA-D 24 HOUR PO) Take 1 tablet by mouth 1 (one) time each day at the same time. levothyroxine (Synthroid, Levoxyl) 50 MCG tablet Take 0.5 tablets (25 mcg) by mouth in the morning and 0.5 tablets (25 mcg) in the evening. Take before meals. 90 tablet 0 liothyronine (Cytomel) 5 MCG tablet Take 1.5 tablets (7.5 mcg) by mouth in the morning and 1.5 tablets (7.5 mcg) in the evening. Take before meals. CaseRails or Decisiv brand only. 270 tablet 0 meclizine (Antivert) 25 MG tablet Take 0.5-2 tablets as needed for vertigo 60 tablet 0 memantine (Namenda) 5 MG tablet Take 1 tablet (5 mg) by mouth in the morning and 1 tablet (5 mg) before bedtime. 180 tablet 1 multivitamin (Theragran) tablet Take 2 tablets by mouth in the morning. Nebulizers (Compressor/Nebulizer) misc Use 4 times per day and PRN SOB/wheezing 1 each 0 omeprazole (PriLOSEC) [address] capsule Take 1 capsule (40 mg) by mouth in the morning and 1 capsule (40 mg) in the evening. Take before meals. 180 capsule 1 polyethylene glycol, PEG, 3350 (MiraLax) 17 GM/SCOOP powder Take 17 g by mouth if needed. simvastatin (Zocor) 10 MG tablet Take 1 tablet (10 mg) by mouth at bedtime 90 tablet 1 sodium chloride (Broncho Saline) 0.9 % aerosol solution Inhale 1 spray 3 (three) times a day as needed for shortness of breath 90 mL 0 sucralfate (Carafate) 1 g tablet Take 1 g by mouth See administration instructions. Dissolve 1 tablet in 2 oz of water three times daily before meals and again before bedtime as needed verapamil SR (Calan SR) 240 MG ER tablet Take 1 tablet (240 mg) by mouth 1 (one) time each day at the same time 90 tablet 1 [DISCONTINUED] azelastine (Astelin) 0.1 % nasal spray Administer 2 sprays into each nostril every 12 (twelve) hours. PARoxetine (Paxil) 20 MG tablet Take 1 tablet (20 mg) by mouth in the morning. 90 tablet 1 No current facility-administered medications on file prior to visit. 1. [id number] condition (Primary) Acute that the patient believes triggered all her other problems listed. No signs or symptoms of residual Acute COVID. 2. Rhinorrhea Patient thinks this is an acute problem since the COVID. I do notes specifically that she was on Astelin previously. She denies being on this and does not think she ever used it. I discussed that symptomatically since she is describing rhinorrhea to the point of a dripping from her nose that we can use a symptom control her medication and she would like to try this. Demonstrated proper nasal spray use. In prescribing a new medication consideration of the following encompasses moderate decision making: the current prescriptions and supplements, the current allergies and medication intolerances, the current medical conditions, and potential drug interactions. Risks, benefits, and reason for starting their medication were discussed. The patient was given a chance to ask questions today and all questions were answered. The patient is to contact us if any other questions arise or if any problems occur with the adjustment in their medication. - ipratropium (Atrovent) 0.06 % nasal spray; Administer 2 sprays into each nostril in the morning and 2 sprays before bedtime. Dispense: 15 mL; Refill: 1 3. Enlarged tonsils I discussed with her that this just seems off to me. I can not be specific about it. There is asymmetry in she has had a previous tonsillectomy per her report. I discussed with her that I would really like to get an ENT opinion just to make sure I am not missing anything here. She is in agreement. - Ambulatory referral to ENT; Future 4. Myalgia, multiple sites Problem that she also believes is triggered by the COVID. She is also complaining of the sensation sometimes of bugs crawling under her skin. She does not have any sores associated with this. We have mutually agreed to a trial of holding her statin medication for 2 weeks. This will also give us some time to get the ENT referral and she can give me an update then on how the rhinorrhea is also doing. 5. Overweight documented in this encounter [facility] 06-23-2024 History of Present illness Narrative Images from the original note were not included. Patient ID: Belkys Adames is a 83 y.o. female who presents for: Pt has been ill for about 3-4 weeks, she tested positive for covid at day 5 so no paxlovid was given. She states she feels cold and clammy despite not having a fever. She feels very fatigued and weak. She still has a sore throat, non-productive cough and bilateral ear ache. She states she also has an excess of saliva building up in her mouth and her skin feels like its crawling. Review of Systems Constitutional: Positive for fatigue. Negative for chills and fever. HENT: Positive for ear pain and sore throat. Respiratory: Positive for cough, shortness of breath and wheezing. Cardiovascular: Negative for chest pain and palpitations. Gastrointestinal: Negative for abdominal pain. Neurological: Positive for dizziness, weakness and headaches. Objective In general the patient is pleasant and in no acute distress, But does appear ill. Bilateral ears, canals are within normal limits. Right TM is transparent and somewhat retracted. Left TM is transparent and somewhat retracted. No fluid layer. Bilateral nares demonstrate inflamed mucosa. Oropharynx has moist mucosa there is no specific evidence of thrush. There is mild erythema of the pharynx. Shoddy bilateral anterior cervical adenopathy. No signs of respiratory distress. Mild productive cough evident during exam.Patient is speaking full sentences. There are symmetrical breath sounds. No rhonchi or rales are appreciated. Diffuse and mild end inspiratory wheezes. Skin is warm and dry Visit Vitals BP 120/70 Pulse 83 Ht 4' 11 Wt 130 lb SpO2 97% BMI 26.26 kg/m OB Status Postmenopausal Smoking Status Never BSA 1.57 m Allergies Allergen Reactions Memantine Other, Tinnitus and GI intolerance Very tired Milk-Related Compounds Other Reaction(s): Unknown Oxycodone-Acetaminophen Other Reaction(s): Mental Status Change makes me crazy Soybean-Containing Drug Products Other Reaction(s): Unknown Wheat Other Reaction(s): Unknown Current Outpatient Medications on File Prior to Visit Medication Sig Dispense Refill aspirin 81 MG EC tablet Take 81 mg by mouth in the morning. azelastine (Astelin) 0.1 % nasal spray Administer 2 sprays into each nostril every 12 (twelve) hours. buPROPion SR (Wellbutrin SR) 100 MG 12 hr tablet Take 1 tablet (100 mg) by mouth in the morning. Take before meals. Do not crush, chew, or split.. 90 tablet 1 CALCIUM CITRATE PO Take 1 tablet by mouth in the morning. cholecalciferol (Vitamin D-3) 25 MCG (1000 UT) capsule Take 1,000 Units by mouth in the morning. donepezil (Aricept) 10 MG tablet TAKE 1 TABLET BY MOUTH EVERY DAY AT BEDTIME FOR 30 DAYS 90 tablet 1 Fexofenadine-Pseudoephedrine (BENITA-D 24 HOUR PO) Take 1 tablet by mouth 1 (one) time each day at the same time. meclizine (Antivert) 25 MG tablet Take 0.5-2 tablets as needed for vertigo 60 tablet 0 memantine (Namenda) 5 MG tablet Take 1 tablet (5 mg) by mouth in the morning and 1 tablet (5 mg) before bedtime. 180 tablet 1 multivitamin (Theragran) tablet Take 2 tablets by mouth in the morning. omeprazole (PriLOSEC) [address] capsule Take 1 capsule (40 mg) by mouth in the morning and 1 capsule (40 mg) in the evening. Take before meals. 180 capsule 1 polyethylene glycol, PEG, 3350 (MiraLax) 17 GM/SCOOP powder Take 17 g by mouth if needed. simvastatin (Zocor) 10 MG tablet Take 1 tablet (10 mg) by mouth at bedtime 90 tablet 1 sucralfate (Carafate) 1 g tablet Take 1 g by mouth See administration instructions. Dissolve 1 tablet in 2 oz of water three times daily before meals and again before bedtime as needed verapamil SR (Calan SR) 240 MG ER tablet Take 1 tablet (240 mg) by mouth 1 (one) time each day at the same time 90 tablet 1 levothyroxine (Synthroid, Levoxyl) 50 MCG tablet Take 0.5 tablets (25 mcg) by mouth in the morning and 0.5 tablets (25 mcg) in the evening. Take before meals. 90 tablet 0 liothyronine (Cytomel) 5 MCG tablet Take 1.5 tablets (7.5 mcg) by mouth in the morning and 1.5 tablets (7.5 mcg) in the evening. Take before meals. CaseRails or Decisiv brand only. 270 tablet 0 PARoxetine (Paxil) 20 MG tablet Take 1 tablet (20 mg) by mouth in the morning. 90 tablet 1 No current facility-administered medications on file prior to visit. 1. 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 Patient also has a history of previous granulomatous disease with calcifications and probable scarring. After discussion I am not sure she would be able to use an HFA inhaler even with a spacer. I also think with the amount of mucus she is describing she would do better with extra saline to help thin the secretions immobilize them. In prescribing a new medication consideration of the following encompasses moderate decision making: the current prescriptions and supplements, the current allergies and medication intolerances, the current medical conditions, and potential drug interactions. Risks, benefits, and reason for starting their medication were discussed. The patient was given a chance to ask questions today and all questions were answered. The patient is to contact us if any other questions arise or if any problems occur with the adjustment in their medication. - albuterol (2.5 MG/3ML) 0.083% nebulizer solution; Take 3 mL (2.5 mg) by nebulization every 6 (six) hours if needed for wheezing Dispense: 75 mL; Refill: 0 - Nebulizers (Compressor/Nebulizer) misc; Use 4 times per day and PRN SOB/wheezing Dispense: 1 each; Refill: 0 - sodium chloride (Broncho Saline) 0.9 % aerosol solution; Inhale 1 spray 3 (three) times a day as needed for shortness of breath Dispense: 90 mL; Refill: 0 documented in this encounter [facility] 03-24-2024 Hospital Discharge instructions Patient Education 03/24/2024 14:13:19 Botulinum Toxin Bladder Injection Botulinum Toxin Bladder Injection A botulinum toxin bladder injection is a procedure to treat an overactive bladder. During the procedure, a drug called botulinum toxin is injected into the bladder through a long, thin needle. This drug relaxes the bladder muscles and reduces overactivity. You may need this procedure if your medicines are not working or you cannot take them. The procedure may be repeated as needed. The treatment is done once and it usually lasts for 6 months. Your health care provider will monitor you to see how well you respond. Tell a health care provider about: Any allergies you have. All medicines you are taking, including vitamins, herbs, eye drops, creams, and kuix-qat-ojiiawi medicines. Any problems you or family members have had with anesthetic medicines. Any bleeding problems you have. Any surgeries you have had. Any medical conditions you have. Any previous reactions to a botulinum toxin injection. Any symptoms of urinary tract infection. These include chills, fever, a burning feeling when passing urine, and needing to pass urine often. Whether you are or may be . What are the risks? Generally this is a safe procedure. However, problems may occur, including: Not being able to pass urine. If this happens, you may need to have your bladder emptied with a thin tube (urinary catheter). Bleeding. Urinary tract infection. Allergic reaction to the botulinum toxin. Pain or burning when passing urine. Damage to nearby structures or organs. What happens before the procedure? When to stop eating and drinking Follow instructions from your health care provider about what you may eat and drink before your procedure. These may include: 8 hours before the procedure ?Stop eating most foods. Do not eat meat, fried foods, or fatty foods. ?Eat only light foods, such as toast or crackers. ?All liquids are okay except energy drinks and alcohol. 6 hours before the procedure ?Stop eating. ?Drink only clear liquids, such as water, clear fruit juice, black coffee, plain tea, and sports drinks. ?Do not drink energy drinks or alcohol. 2 hours before the procedure ?Stop drinking all liquids. ?You may be allowed to take medicines with small sips of water. If you do not follow your health care provider's instructions, your procedure may be delayed or canceled. Medicines Ask your health care provider about: Changing or stopping your regular medicines. This is especially important if you are taking diabetes medicines or blood thinners. Taking medicines such as aspirin and ibuprofen. These medicines can thin your blood. Do not take these medicines unless your health care provider tells you to take them. Taking mtus-hjy-fnayhwc medicines, vitamins, herbs, and supplements. General instructions Ask your health care provider what steps will be taken to help prevent infection. These steps may include: ?Removing hair at the procedure site. ?Washing skin with a germ-killing soap. ?Taking antibiotic medicine. If you will be going home right after the procedure, plan to have a responsible adult: ?Take you home from the hospital or clinic. You will not be allowed to drive. ?Care for you for the time you are told. What happens during the procedure? You will be asked to empty your bladder. An IV will be inserted into one of your veins. You will be given one or more of the following: ?A medicine to help you relax (sedative). ?A medicine to numb the area (local anesthetic). ?A medicine to make you fall asleep (general anesthetic). A long, thin scope called a cystoscope will be passed into your bladder through the part of the body that carries urine from your bladder (urethra). The cystoscope will be used to fill your bladder with water. A long needle will be passed through the cystoscope and into the bladder. The botulinum toxin will be injected into your bladder. It may be injected into multiple areas of your bladder. The cystoscope will be removed and your bladder will be emptied with a urinary catheter. The procedure may vary among health care providers and hospitals. What can I expect after the procedure? After your procedure, it is common to have: Blood-tinged urine. Burning or soreness when you pass urine. Follow these instructions at home: Medicines Take dazq-odw-tbufypz and prescription medicines only as told by your health care provider. If you were prescribed an antibiotic medicine, take it as told by your health care provider. Do not stop using the antibiotic even if you start to feel better. General instructions If you were given a sedative during the procedure, it can affect you for several hours. Do not drive or operate machinery until your health care provider says that it is safe. Drink enough fluid to keep your urine pale yellow. Return to your normal activities as told by your health care provider. Ask your health care provider what activities are safe for you. Keep all follow-up visits. Contact a health care provider if you have: A fever or chills. Blood-tinged urine for more than one day after your procedure. Worsening pain or burning when you pass urine. Pain or burning when passing urine for more than two days after your procedure. Trouble emptying your bladder. Get help right away if you: Have bright red blood in your urine. Are unable to pass urine. Summary A botulinum toxin bladder injection is a procedure to treat an overactive bladder. This is generally a safe procedure. However, problems may occur, including not being able to pass urine, bleeding, infection, pain, and an allergic reaction to the botulinum toxin. You will be told when to stop eating and drinking, and what medicines to change or stop. Follow instructions carefully. After the procedure, it is common to have blood in your urine and to have soreness or burning when passing urine. Contact a health care provider if you have a fever, blood in your urine for more than a few days, or trouble passing urine. Get help right away if you have bright red blood in your urine, or if you are unable to pass urine. This information is not intended to replace advice given to you by your health care provider. Make sure you discuss any questions you have with your health care provider. Document Revised: 03/23/2022 Document Reviewed: 03/23/2022 [employer] Patient Education 2022 [employer]. Follow Up Care 01/21/2024 15:37:15 With:NATHALIE JONES PA-C, URL Address: [address] [place] [address] When: Unknown [facility] 01-21-2024 Hospital Discharge instructions Patient Education 01/21/2024 [...] nerve stimulation). ?For women, using a medical front desk specialist to prevent urine leaks. This is a [...] right after experiencing incontinence. General instructions Take nzbm-hez-evanncu and prescription medicines only as told by [...] important. Where to find more information National [place] of Diabetes and Digestive and Kidney Diseases: www.niddk.nih.gov Citizen Of [place] U[employer] Association: www.urologyhealth.org Contact a health care [...] provider. Document Revised: 04/21/2021 Document Reviewed: 04/21/2021 [employer] Patient Education 2022 [employer]. Follow Up Care 01/16/2023 15:54:08 With:NATHALIE JONES PA-C, URL Address: [address] [place] [address] [phone] When: Unknown [facility] 11-06-2023 History of Present illness [...] 0.55 - 1.02 mg/dL Final [facility] EGFR-AF [place] 08/14/2023 >60 >=60 Final [facility] EGFR-NON AF [place] 08/14/2023 >60 >=60 Final BUN CREATININE RATIO [...] - 180 ng/dL Final Comment: Performed at: [address] [id number] Sort Line Worker: Devin Pichardo PhD, Phone: [phone] REVERSE T3, SERUM 07/24/2023 21.2 9.2 - 24.1 ng/dL Final Comment: This test was developed and its performance characteristics determined by [facility]. It has not been cleared or approved by the Food and Drug Administration. Performed at: [address] [id number] Sort Line Worker: Daryl Lees MD, Phone: [phone] [employer] Result Encounter on 07/08/2023 Component Date Value Ref Range Status BLOOD UREA NITROGEN 07/08/2023 22.0 (H) 7.0 - 18.0 mg/dL Final CREATININE 07/08/2023 1.01 0.55 - 1.02 mg/dL Final [facility] EGFR-AF [place] 07/08/2023 >60 >=60 Final [facility] EGFR-NON AF [place] 07/08/2023 53 (L) >=60 Final Visit Vitals [...] I discussed with the patient and/or their access representative, their fatigue issues. We discussed how [...] were answered. Overweight documented in this encounter [facility] 01-16-2023 Hospital Discharge instructions Patient Education 01/16/2023 [...] your health care provider. General instructions Take rldr-ywq-yzgkcud and prescription medicines only as told by [...] provider. Document Revised: 06/05/2021 Document Reviewed: 06/05/2021 [employer] Patient Education 2022 [employer]. Follow Up Care 01/11/2023 11:08:02 With:NATHALIE JONES PA-C, URL Address: [address] [place] [phone] When:01/17/2024 [facility] 03-01-2022 Miscellaneous Notes Order faxed. Nataly Batista RN Received call from Yamilet at [facility] Scheduling stating pt is scheduled for mammogram there but order is for screening and pt is less than 5 years out from her breast cancer so they would like dx ria order. MOR: Order pending. Please review and sign if agreeable. Nataly Batista RN documented in this encounter [facility] 01-11-2022 Note HNO ID: [id number] Author: Pranav Bermudez MD Service: ? Author Type: Physician Type: Progress Notes Filed: 01/11/2022 8:32 PM Note Text: NAME: Yanet Adames [facility] NO.: [id number] DATE OF SERVICE: January 11, 2022 Some [...] that her diagnosis was found originally in [place] after which she decided to move up here permanently. Her is retired from [email or web address]. ? Some background history that are reviewed today reveals that she originally presented in consultation 02/06/18 with a new diagnosis of breast cancer. She was taken to lumpectomy 01/24/18 with the finding of a 2 cm sized ER and KY positive, HER 2 negative breast cancer. 0/5 [...] right axillary node excision and lumpectomy 2cm ER/KY positive 100%/80%, Her2 negative by FISH right [...] intact. Neck: Supp (more content not included)... [facility] 01-11-2022 History of Present illness Narrative Images from the original note were not included. NAME: Yanet Adames [facility] NO.: [id number] DATE OF SERVICE: January 11, 2022 Some [...] that her diagnosis was found originally in [place] after which she decided to move up here permanently. Her is retired from [email or web address]. Some background history that are reviewed today reveals that she originally presented in consultation 02/06/18 with a new diagnosis of breast cancer. She was taken to lumpectomy 01/24/18 with the finding of a 2 cm sized ER and KY positive, HER 2 negative breast cancer. 0/5 [...] right axillary node excision and lumpectomy 2cm ER/KY positive 100%/80%, Her2 negative by FISH right [...] 2 TABLETS DAILY TOLERATING SIDE EFFECTS STRONTIUM [id number] ORAL Take by mouth. MULTI-VITAMIN ORAL Refill(s) [...] GRAM VAGINALLY THREE TIMES WEEKLY thyroid, pork, (AUTHORIZATION REPRESENTATIVE THYROID) 60 mg AUTHORIZATION REPRESENTATIVE Thyroid 60 mg tablet TAKE 1 TABLET [...] by mouth once daily. calcium carbonate/vitamin D2 ([id number] ORAL) Take by mouth. Magnesium 250 mg [...] which included preparing to see the patient, tmad-fd-gxeh patient care, completing clinical documentation, performing a medically appropriate examination, communicating results to the patient/family/caregiver and care coordination (not separately reported). Pranav Bermudez MD, CPE [place], [place] CC: Pranav Bermudez MD [address] [place] [address] [place] [address] Homero Moses MD [address] [id number] documented in this encounter [facility] 07-13-2021 Note HNO ID: [id number] Author: Pranav Bermudez MD Service: ? Author Type: Physician Type: Progress Notes Filed: 07/13/2021 1:04 PM Note Text: NAME: Yanet Adames [facility] NO.: [id number] DATE OF SERVICE: July 13, 2021 Some [...] that her diagnosis was found originally in [place] after which she decided to move up here permanently. Her is retired from [email or web address]. ? Some background history that are reviewed today reveals that she originally presented in consultation 02/06/18 with a new diagnosis of breast cancer. She was taken to lumpectomy 01/24/18 with the finding of a 2 cm sized ER and KY positive, HER 2 negative breast cancer. 0/5 nodes involved, grade II. She completed radiation to the right breast in March 2018 and started anastrazole as well. ? RADIOGRAPHIC DATA: Reviewed on January 12, 2021 32020 Mammogram and dexa---requesting reports to review 2. 12/10/2019 Bilateral Diagnostic Mammogram: Birads 2--benign findings. 1.06/16/14 Dexa scan: osteopenia of spine and hip T scores -1.5, -1.7 PATHOLOGIC PROFILE/MOLECULAR DATA: Reviewed on January 12, 2021 1. 01/24/2018-- right axillary node excision and lumpectomy 2cm ER/KY positive 100%/80%, Her2 negative by FISH right [...] Percocet [Oxycodone* Me (more content not included)... [facility] 04-28-2021 Note HNO ID: [id number] Author: LIAM Magana Service: Radiology Author Type: Infantryman Type: Progress Notes Filed: 04/28/2021 10:05 AM [...] LIAM Magana April 28, 2021 9:36 AM [facility] 04-28-2021 History of Present illness Narrative Radiology Service Progress Note PATIENT NAME: Yanet [...] LIAM Magana April 28, 2021 9:36 AM documented in this encounter [facility] 04-14-2021 Note HNO ID: [id number] Author: Marcus Munoz MD Service: ? Author Type: Physician Type: Progress Notes Filed: 04/18/2021 8:42 AM Note Text: [facility] MULT[facility]LE SCLEROSIS NEW PATIENT EVALUATION/CONSULTATION Referral source: Shadia Barrera, SONAM [address] [place] [address] Also followed by: Patient Care Team: Homero [...] a past medical history of stage I ER/KY+ve HER-2neu -ve breast cancer s/p lumpectomy, radiation and adjuvant anastrazole, Hyppothyroidism, hypercholesterolemia, and osteoporosis. She presents today with a chief concern of abnormal visual starkey testing (perimetry). She was getting her routine eye examination when the v groove cutter/mobile homes repairer who noted an abnormality on her exam. [...] VAGINALLY THREE TIMES WEEKLY - thyroid, pork, (AUTHORIZATION REPRESENTATIVE THYROID) 60 mg AUTHORIZATION REPRESENTATIVE Thyroid 60 mg tablet TAKE 1 TABLET [...] mouth once daily (more content not included)... [facility] Evaluation + Plan note Future Appointments Appointment Date:01/11/2023 10:45:00 AM Scheduled Provider:Aldair TURCIOS MD Location:[facility] Appointment Type:URO Office Visit [facility] Evaluation + Plan note Future Appointments Appointment Date:01/21/2024 02:30:00 PM Scheduled Provider:NATHALIE JONES PA-C Location:[facility] Appointment Type:URO Office Visit [facility] Evaluation + Plan note Future Appointments Appointment Date:03/24/2024 02:00:00 PM Scheduled Provider:NATHALIE JONES PA-C Location:[facility] Appointment Type:URO [facility] Diagnosis Age-related osteoporosis without current pathological fracture- Primary Senile osteoporosis Malignant neoplasm of lower-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, estrogen receptor positive (HCC) [facility] Malignant neoplasm of right breast in female, estrogen receptor positive, unspecified site of breast (HCC)- Primary Osteoporosis due to aromatase inhibitor Other osteoporosis [facility] Malignant neoplasm of lower-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, estrogen receptor positive (HCC)- Primary [facility] Diagnosis Cerebral meningioma (CMS/HCC)- Primary Benign neoplasm of cerebral meninges 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 Chronic fatigue Other malaise and fatigue Overweight Recurrent major depressive disorder, in partial remission (HCC) (CMS/HCC) documented [facility]* Diagnosis Diplopia [facility] Diagnosis COVID-19- Primary documented in this encounter [facility]* Diagnosis 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 Rhinorrhea Other diseases of nasal cavity and sinuses Enlarged tonsils Hypertrophy of tonsils alone Myalgia, multiple sites Overweight documented in this encounter [facility] Narrative No data available for this section [facility] Discharge instructions No data available for this section [facility] Progress note No data available for this section [facility] Reason for referral (narrative)* Diagnostic Procedure Only (Routine) - Pending Review Specialty Diagnoses / Procedures Referred By Angélica t Referred To Contact [facility] Diagnoses Malignant neoplasm of lower-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, estrogen receptor positive (HCC) Procedures RIA DIAGNOSTIC BILAT DIAGNOSTIC MAMMOGRAPHY COMPUTER-AIDED DETCJ Sindi Quevedo, PATRICIO.[address] [place] [address] [facility] [address] [place] [address] Referral ID Status Reason Start Date Expiration Date Visits Requested Visits Authorized [id number] Pending Review Auto-Generat ed Referral 03/01/2022 03/31/2023 1 1 [facility] Diagnostic Procedure Only (Routine) - Closed Specialty Diagnoses / Procedures Referred By Contac t Referred To Contact [facility] Diagnoses Diplopia Procedures MRI BRAIN WO/W IVCON MRI BRAIN Marcus Harrison MD [address] [place] [address] [place] [address] Referral ID Status Reason Start Date Expiration Date Visits Re quested Visits Authorized [id number] Closed 04/28/2021 08/01/2021 1 1 [facility] Summary Purpose Family History No Family History Records FoundNo Family History Records FoundNo Family History Records Found No data available for this section No data available for this section No Family History Records Found No data available for this section No Family History Records Found Advance Directives Documents on File Type Date Recorded 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 Production 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 Expl 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 Advance Directives and Living Will 05/25/2019 1990-08-27 Power of Calender Machine Operator Helper Documents on File Type Date Recorded 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 Production Artist Expl anation Advance Directives and Living Will 05/25/2019 1990-08-27 Power of Calender Machine Operator Helper Medications Administered Section Inactive Administered Medications - [...] section and content) DATE CREATED AUTHOR 03/20/2018 [facility] DATE CREATED AUTHOR AUTHOR'S ORGANIZ ATION 03/02/2022 [facility] DATE CREATED AUTHOR AUTHOR'S ORGANIZ ATION 02/13/2023 [facility] DATE CREATED AUTHOR AUTHOR'S ORGANIZ ATION 05/10/2024 Akin Ortiz [facility] DATE CREATED AUTHOR AUTHOR'S ORGANIZ ATION 07/16/2024 [facility] EPIC Source Comments (unrecognize d section and content) In the event this informatio n is protected by the Federal Confidentiality of Alcohol and Drug Abuse Patient Records regulations: The Federal rules restrict any use of the information to criminally investigate or prosecute any alcohol or drug abuse patient.[facility] the event this information is protected by the Federal Confidentiality of Alcohol and Drug Abuse Patient Records regulations: The Federal rules restrict any use of the information to criminally investigate or prosecute any alcohol or drug abuse patient.[facility] the event this information is protected by the Federal Confidentiality of Alcohol and Drug Abuse Patient Records regulations: The Federal rules restrict any use of the information to criminally investigate or prosecute any alcohol or drug abuse patient.[facility] the event this information is protected by the Federal Confidentiality of Alcohol and Drug Abuse Patient Records regulations: The Federal rules restrict any use of the information to criminally investigate or prosecute any alcohol or drug abuse patient.[facility] Reason for Visit (unrecogniz ed section and content) Specialty Diagnoses / Procedures Referred By Contac t Referred To Contact Diagnoses Malignant neoplasm of lower-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, estrogen receptor positive (HCC) Age-related osteoporosis without current pathological fracture Procedures DENOSUMAB INJECTION Pranav Bermudez MD [address] [place] [address] Jefe Treat Francisco [address] [place] [address] Referral ID Status Reason Start Date Expiration Date V isits Requested Visits Authorized [id number] Waiting for Response 07/13/2021 01/15/2022 99 99 Reason Comments Breast Cancer Reason Comments Orders Reason Comments Memory Loss Reason Comments Radiology MRI Specialty Diagnoses / Procedures Referred By Contac t Referred To Contact [facility] Diagnoses Diplopia Procedures MRI BRAIN WO/W IVCON MRI BRAIN MARTITAO Marcus Munoz MD [address] [place] [address] Mr Imaging [id number] Referral ID Status Reason Start Date Expiration Date Visits Re quested Visits Authorized [id number] Closed 04/28/2021 08/01/2021 1 1 Reason Comments Covid Reason Comments Follow-up Care Teams (unrecognized sec tion and content) Home Health Care Social Worker Relationship Specialty Start Date End Date Homero Moses [address] [facility] [place] [address] PCP - General Family Practice 05/09/15 Shadia Barrera, DO [address] [place] [address] Referring Optometry 04/10/21 Home Health Care Social Worker Relationship Specialty Start Date End Date Homero Moses [address] [facility] [place] [address] (Fax) PCP - General Family Practice 05/09/15 Shadia Barrera W, DO [address] [place] [address] Referring Optometry 04/10/21 Home Health Care Social Worker Relationship Specialty Start Date End Date Homero Moses MD [address] [facility] [place] [address] (Fax) PCP - General Family Practice 05/09/15 Shadia Barrera W, DO [address] [place] [address] Referring Optometry 04/10/21 Home Health Care Social Worker Relationship Specialty Start Date End Date Homero Moses MD [address] [facility] [place] [address] (Fax) PCP - Devoted 09/30/20 oHmero Moses MD [address] [place] [address] (Fax) PCP - General Family Medicine 02/11/23 Home Health Care Social Worker Relationship Specialty Start Date End Date Homero Moses MD [address] [facility] [place] [address] (Fax) PCP - Devoted 09/30/20 Homero Moses MD [address] [facility] [place] [place] [address] (Fax) PCP - General Family Medicine 02/11/23 Home Health Care Social Worker Relationship Specialty Start Date End Date Homero Moses MD [address] [place] [address] (Fax) PCP - Devoted 09/30/20 Homero Moses MD [address] [place] [address] (Fax) PCP - General Family Medicine 02/11/23 Home Health Care Social Worker Relationship Specialty Start Date End Date Homero Moses MD [address] [place] [address] (Fax) PCP - General Family Medicine 05/09/15 Shadia Barrera OD [address] [place] [address] Referring Optometry 04/10/21 Home Health Care Social Worker Relationship Specialty Start Date End Date Homero Moses MD [address] [place] [address] (Fax) PCP - Devoted 09/30/20 Homero Moses MD [address] [place] [address] (Fax) PCP - General Family Medicine 02/11/23 Home Health Care Social Worker Relationship Specialty Start Date End Date Homero Moses MD [address] [place] [address] (Fax) PCP - Devoted 09/30/20 Homero Moses MD [address] [place] [address] (Fax) PCP - General Family Medicine 02/11/23 Home Health Care Social Worker Relationship Specialty Start Date End Date Homero Moses MD [address] [place] [address] PCP - Devoted 09/30/20 Homero Moses MD [address] [place] [address] PCP - General Family Medicine 02/11/23 FOR [...] BE BASED ON THE PRIMARY CLINICAL RECORDS. [facility]. provides no warranty or guarantee of the accuracy or completeness of information in this document.
--- NOTE | 2024-07-21 11:37 | XR_ITS ---
[address] [address] Patient Name: GARY ADAMES MRN: [id number] date: 1940 Sex: F Assigned Patient Location: [facility] Current Patient Location: Accession/Order Number: [id number] Exam Date: 07/21/2024 11:45 Report Date: 07/22/2024 15:38 At the request of: MAYURI MOSES Procedure: XR hip RT min 2V PROCEDURE: XR hip RT min 2V HISTORY: Right Hip Pain M25.551 COMPARISON: None. FINDINGS: BONES:No fracture or dislocation. Calcium deposition within the cartilage. Mild joint space narrowing. SOFT TISSUES:No visible soft tissue swelling. EFFUSION:None visible. OTHER: Negative. XR/XR hip RT min 2V IMPRESSION: 1. No acute bone abnormality. 2. Mild to moderate degenerative joint disease. Electronically authenticated by: MARINE KUMAR Date: 07/22/2024 15:38
== END 2024-07-21 11:29 | disposition home or self-care (01) ==
LOC: RAD 11:31
PROVIDERS: PCP Family Medicine; Visit Provider Family Medicine
DX: M25.551 Pain in right hip (principal)
CPT/HCPCS: 73502

== ENCOUNTER 2024-07-22 14:43 | Emergency (ER) | payer OTHER, SELFPAY ==
[2024-07-22] VITALS (14 sets, daily range): BP systolic 169–202; BP diastolic 68–109; PULSE 81–103; TEMP 36.6; O2SAT 97; BMI 26.9
--- NOTE | 2024-07-22 14:55 | ECG_ITS ---
[facility] Test Date: 2024-07-22 Pat Name: GARY ADAMES Department: Room: - Gender: Female Library Director: : 1940 Requested By: MAYURI MOSES Order Number: [id number] Reading MD: KONRAD MOSS Measurements Intervals [place] Rate: 86 P: 43 UT: 164 QRS: -16 QRSD: 76 T: 31 QT: 374 QTc: 417 Interpretive Statements 1100 Sinus rhythm 9110 normal ECG Compared to ECG 05/31/2019 21:13:38 Myocardial infarct finding no longer present Electronically Signed On 07-22-2024 18:03:13 EDT by KONRAD MOSS
--- NOTE | 2024-07-22 14:55 | CT_ITS ---
The [address] [address] Patient Name: GARY ADAMES MRN: [id number] date: 1940 Sex: F Assigned Patient Location: Current Patient Location: [facility] Accession/Order Number: [id number] Exam Date: 07/22/2024 15:07 Report Date: 07/22/2024 15:43 At the request of: SOTERO RUSS Procedure: CT head/brain wo con EXAMINATION: CT head/brain wo con HISTORY: dizziness COMPARISON: No relevant comparison available. TECHNIQUE: Axial CT images were obtained without IV contrast. Dose reduction techniques were achieved by using automated exposure control and/or adjustment of mA and/or kV according to patient size and/or use of iterative reconstruction technique. FINDINGS: BRAIN: Decreased attenuation within the periventricular deep white matter favoring chronic small vessel ischemic changes. No edema, hemorrhage, mass, acute infarction, or inappropriate atrophy. CSF SPACES: No hydrocephalus, subarachnoid hemorrhage, or mass. Appropriate for age. SKULL: No fracture, mass, or other significant visible lesion. SINUSES: No significant mucosal thickening or fluid on the limited views. ORBITS: No appreciable abnormality on the limited views. OTHER: Negative CT/CT head/brain wo con IMPRESSION: 1. No intracranial hemorrhage, mass, or appreciable acute abnormality. 2. Age consistent chronic changes. Electronically authenticated by: MARINE KUMAR Date: 07/22/2024 15:43
--- NOTE | 2024-07-22 14:55 | CT_ITS ---
[address] [address] Patient Name: GARY ADAMES MRN: [id number] date: 1940 Sex: F Assigned Patient Location: ER Current Patient Location: Accession/Order Number: [id number] Exam Date: 07/22/2024 15:07 Report Date: 07/22/2024 15:37 At the request of: SOTERO RUSS Procedure: CT pelvis wo con EXAMINATION: CT pelvis wo con HISTORY: R hip pain after falling COMPARISON: No relevant comparison available. TECHNIQUE: Axial, Coronal, and Sagittal images were obtained without and/or with IV contrast as indicated by examination type. Dose reduction techniques were achieved by using automated exposure control and/or adjustment of mA and/or kV according to patient size and/or use of iterative reconstruction technique FINDINGS: BOWEL: Mild diverticulosis of the distal colon without acute inflammatory changes. LYMPH NODES: No adenopathy. URINARY BLADDER: No visible focal wall thickening, lesion, or calculus. PELVIC ORGANS: Hysterectomy. ANTERIOR WALL: No hernia. BONES: No bone lesion or fracture. Degenerative disc disease and foramen narrowing L4-5, L5-S1. OTHER: Negative. CT/CT pelvis wo con IMPRESSION: 1. No fracture or dislocation of the right hip. Moderate degenerative joint disease. 2. Mild colonic diverticulosis. 3. Degenerative disc disease of lower lumbar spine. Electronically authenticated by: MARINE KUMAR Date: 07/22/2024 15:37
--- NOTE | 2024-07-22 14:59 | ED_ITS ---
HPI HPI - General Adult General Chief complaint: Dizziness Stated complaint: CVA SYMPTOMS Time Seen by Provider: 07/22/24 14:45 Source: patient Mode of arrival: walk-in Limitations: no limitations History of Present Illness HPI narrative: Patient presents to ED for evaluation of high blood pressure and dizziness. She apparently fell on Saturday at her house due to dizziness. She then saw her doctor yesterday who ordered a right hip x-ray outpatient due to pain in her hip since her fall. She said once the doctor saw her get up from the chair he could tell that she was in pain so they ordered an x-ray. Patient has not heard on the results of the x-ray yet. Today patient called her doctor's office and left a voicemail stating that she did not sleep well last night and this morning her heart rate was 140 and her blood pressure was 188/147. The doctor's office called the patient back and the patient said she checked it again at noon and had the same readings on her wrist. Patient said she was on her way to the dentist when she got the call from the doctor so they asked the dentist office to check her blood pressure. The blood pressure reading in the dental office was 193/148 so they decided to come into the emergency room. Patient said the family doctor was a little bit worried about a stroke because of the dizziness and right leg weakness however I feel the right leg weakness is related a little bit more to her fall and injury and less likely stroke however it is still on the differential. The patient states she has some dementia and has trouble remembering some things at baseline but she has no new neurological deficits other than her right leg weakness. No chest pain no shortness of breath. She said the dizziness feels more like lightheadedness and not like the room spinning. She is alert and oriented in no acute distress at this time Related Data Home Medications ?Medication ?Instructions ?Recorded ?Confirmed anastrozole 1 mg tablet 1 mg PO DAILY 03/22/23 03/22/23 bupropion HCl 300 mg 24 hr tablet, 300 mg PO DAILY 03/22/23 03/22/23 extended release levothyroxine 75 mcg tablet mcg 03/22/23 liothyronine 5 mcg tablet 5 mcg PO BID 03/22/23 03/22/23 meclizine 25 mg tablet 25 mg PO DAILY PRN dizziness 03/22/23 03/22/23 meloxicam 7.5 mg tablet 7.5 mg PO DAILY 03/22/23 03/22/23 omeprazole 40 mg capsule,delayed 40 mg PO BID 03/22/23 03/22/23 release paroxetine HCl 20 mg tablet 20 mg PO DAILY 03/22/23 03/22/23 simvastatin 10 mg tablet 10 mg PO DAILY 03/22/23 03/22/23 thyroid (pork) 15 mg tablet (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 60 mg PO BID 03/22/23 03/22/23 Thyroid) verapamil 240 mg tablet,extended 240 mg PO Q12H 03/22/23 03/22/23 release Allergies Allergy/AdvReac Type Severity Reaction Status Date / Time No Known Drug Allergies Allergy Verified 07/22/24 14:53 Opioid HPI Opioid Management Most Recent Opioid Data: Last Pain Scale 4 03/23/23 00:47 03/23/23 Review of Systems ROS Status of ROS 10 or more systems reviewed and unremark able except as noted in history and below PFSH PFSH Social History Smoking status: Never smoker Little interest or pleasure in doing things: not at all Feeling down, depressed, or hopeless: not at all Exam Narrative Exam Narrative: Time Seen: [] Vital Signs: [Per nurse's notes.] General: [Alert] Skin: [Warm, dry, no rash.] Head: [Normocephalic, atraumatic.] Neck: [Supple, trachea midline.] Eye: [Pupils are equal, round and reactive to light, extraocular movements are intact, normal conjunctiva.] Ears, nose, mouth and throat: oral mucosa moist. Cardiovascular: [Regular rate and rhythm, no murmur.] Respiratory: [Lungs are clear to auscultation, respirations are non-labored, breath sounds are equal.] Chest wall: [No tenderness, no deformity.] Gastrointestinal: [Soft, nontender, non distended, normal bowel sounds.] MSK: 5 out of 5 muscle strength x 3 extremities no calf pain or edema. Pain history leg raise on the right. Patient states she feels pain in the right lateral hip. Normal distal pulses and sensation. Right leg is weaker but seems to be due to pain. Lymphatics: [No lymphadenopathy.] Psychiatric: [Cooperative, appropriate mood & affect.] Neurological: [Alert and oriented to person, place, time, and situation, no focal neurological deficit observed.] Constitutional Vital Signs, click to edit/add: Last Vital Signs Temp 97.9 F 07/22/24 14:47 Pulse 85 07/22/24 16:44 Resp 13 07/22/24 16:44 BP 175/105 H 07/22/24 16:44 Pulse Ox 97 07/22/24 14:47 O2 Del Method Room Air 07/22/24 14:47 Course Vital Signs Vital signs: Vital Signs Temperature 97.9 F 07/22/24 14:47 Pulse Rate 103 H 07/22/24 14:47 Respiratory Rate 20 07/22/24 14:47 Pulse Oximetry 97 07/22/24 14:47 Oxygen Delivery Method Room Air 07/22/24 14:47 Temperature 97.9 F 07/22/24 14:47 Pulse Rate 85 07/22/24 16:44 Respiratory Rate 13 07/22/24 16:44 Blood Pressure 175/105 H 07/22/24 16:44 Pulse Oximetry 97 07/22/24 14:47 Oxygen Delivery Method Room Air 07/22/24 14:47 Medical Decision Making MDM Narrative Medical decision making narrative: Patient's labs are nonacute. Her blood pressure did remain elevated although it was trending down. I gave her some hydralazine. She tolerated this well. Her blood pressure is only been elevated for 1 day. I am hesitant to start her on a chronic blood pressure medication given the fact that its only been 1 days worth of high blood pressure readings. She does have a cuff at home and states she will check it twice a day and follow-up closely with her family doctor. Of course return to the emergency room if worsening symptoms. CT pelvis was negative for any acute fracture. I think her leg weakness is actually due to to hip pain from the recent fall and not any sort of strokelike symptoms. Patient CT brain was negative for any acute findings. No urinary tract infection. Patient is not hypoxic. She is not in any respiratory distress. She has no chest pain or pain with breathing. She and are comfortable with care plan for home. Will monitor blood pressure and follow-up closely with family doctor. Medical Records Medical records reviewed: Yes I reviewed the patient's medical records Lab Data Lab results reviewed: Yes I reviewed the patient's lab results Labs: Lab Results 10/23/24 10/23/24 Range/Units 15:00 15:48 WBC 6.0 (4.0-11.0) 10^3/uL RBC 3.95 L (4.20-5.40) 10^6/uL Hgb 12.4 (12.0-16.0) g/dL Hct 36.8 (36.0-48.0) % MCV 93.2 (81.0-99.0) fL MCH 31.4 (26.7-34.0) pg MCHC 33.7 (29.9-35.2) g/dL RDW 14.8 (11.0-15.0) % Plt Count 249 (150-450) 10^3/uL MPV 10.4 (9.5-13.5) fL Neut % (Auto) 84.0 H (43.0-75.0) % Lymph % (Auto) 14.7 L (20.5-60.0) % [place] % (Auto) 1.0 L (1.7-12.0) % Eos % (Auto) 0.0 L (0.9-7.0) % Baso % (Auto) 0.0 L (0.2-2.0) % Neut # (Auto) 5.0 (1.4-6.5) 10^3/uL Lymph # (Auto) 0.9 L (1.2-3.8) 10^3/uL [place] # (Auto) 0.1 L (0.3-0.8) 10^3/uL Eos # (Auto) 0.0 (0.0-0.7) 10^3/uL Baso # (Auto) 0.0 (0.0-0.1) 10^3/uL Abs Immat Gran (auto) 0.02 (0.00-0.03) 10^3/uL Imm/Tot Granulo (auto) 0.3 (0.0-0.5) % PT 10.3 (9.0-11.6) sec INR 0.97 Sodium 139 (136-145) mmol/L Potassium 4.1 (3.5-5.1) mmol/L Chloride 104 (98-107) mmol/L Carbon Dioxide 21.7 (21.0-32.0) mmol/L Anion Gap 17.4 BUN 27.0 H (7.0-18.0) mg/dL Creatinine 0.98 (0.55-1.02) mg/dL Est GFR ( Amer) >60 (>=60 mL/min/1.73m^2) Est GFR (Non-Af Amer) 54 L (>=60 mL/min/1.73m^2) BUN/Creatinine Ratio 27.6 Glucose 140 H (74-106) mg/dL Calcium 9.2 (8.5-10.1) mg/dL Total Bilirubin 0.6 (0.2-1.0) mg/dL AST 14 L (15-37) U/L ALT 30 (14-59) U/L Alkaline Phosphatase 69 (46-116) U/L Troponin I High Sens 6.4 (4.0-51.3) pg/mL Total Protein 7.6 (6.4-8.2) g/dL Albumin 3.8 (3.4-5.0) g/dL Globulin 3.8 g/dL Albumin/Globulin Ratio 1.0 Urine Color Lt yellow (YELLOW) Urine Clarity Clear (CLEAR) Urine pH 6.5 (5.0-9.0) Ur Specific [place] <=1.005 A (1.005-1.025) Urine Protein Negative (NEG/TRACE) mg/dL Urine Glucose (UA) Negative (NEGATIVE) mg/dL Urine Ketones Negative (NEGATIVE) mg/dL Urine Occult Blood Negative (NEGATIVE) Urine Nitrite Negative (NEGATIVE) Urine Bilirubin Negative (NEGATIVE) Urine Urobilinogen 0.2 (0.2-1.0) EU/dL Ur Leukocyte Esterase Negative (NEGATIVE) Imaging Data Chest x-ray: Radiologist's impression: ITS Impressions Head CT 07/22/24 14:55 IMPRESSION: 1. No intracranial hemorrhage, mass, or appreciable acute abnormality. 2. Age consistent chronic changes. Electronically authenticated by: MARINE KUMAR Date: 07/22/2024 15:[address] 07/22/24 14:55 IMPRESSION: 1. No fracture or dislocation of the right hip. Moderate degenerative joint disease. 2. Mild colonic diverticulosis. 3. Degenerative disc disease of lower lumbar spine. Electronically authenticated by: MARINE KUMAR Date: 07/22/2024 15:37 ECG Data Attestation: I personally reviewed and interpreted this ECG as follows: Interpretation: EKG INTERPRETATION Time: [] 1506 Rate: [] 86 Rhythm: _ [] Normal sinus rhythm ST segments: _ [] No acute ST elevation or depression T waves: _ [] Ectopy: _ [] P wave/WI interval: _ [] QRS interval: _ [] QT interval: _ [] Comparison: _ [] Comparison EKG date: [] Performed by: [self] Discharge Plan Discharge Chief Complaint: Dizziness Clinical Impression: HTN (hypertension), Acute leg pain Patient Disposition: Home, Self-Care Time of Disposition Decision: 16:58 Condition: Good Mode of Transportation: Private Vehicle Prescriptions / Home Meds: No Action anastrozole 1 mg tablet 1 mg PO DAILY bupropion HCl 300 mg tablet extended release 24 hr 300 mg PO DAILY liothyronine 5 mcg tablet 5 mcg PO BID meclizine 25 mg tablet 25 mg PO DAILY PRN (Reason: dizziness) meloxicam 7.5 mg tablet 7.5 mg PO DAILY omeprazole 40 mg capsule,delayed release(DR/EC) 40 mg PO BID paroxetine HCl 20 mg tablet 20 mg PO DAILY simvastatin 10 mg tablet 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
--- OUTSIDE RECORDS SUMMARY | 2024-07-22 15:01 | XMS_ITS | CCD ---
Author Organization [facility] CliniSyri Care Team Providers Care Perianesthesia Manager Name Role Phone PHYSICIAN, DEFAULT Unavailable Unavailable PHYSICIAN, DEFAULT Unavailable Unavailable Homero Moses Primary Care Provider Shadia Barrera DO Unavailable Homero Moses MD Primary Care Provider HOMERO MOSES Primary Care Physician Unavail able HEMEYER ., DR MESSINA Admitting Unavailable HEMEYER ., DR MESSINA Attending Unavailable HEMEYER ., DR MESSINA Consulting Unavailable HEMEYER ., DR MESSINA Primary Care Unavailable [place], DR ERICK Greer Consulting Unavailable HEMEYER ., [...] Primary Care Unavailable Homero Moses MD Unavailable [phone] Homero Moses MD Primary Care Provider NATHAILE JONES Attending Unavailable NATHALIE JONES Attending Unavailable Homero Moses MD Primary Care Provider Shadia Barrera OD Unavailable [phone] HOMERO MOSES Attending Unavailable HOMERO MOSES Attending Unavailable HOMERO MOSES Attending Unavailable HOMERO MOSES Attending Unavailable HOMERO MOSES Attending Unavailable HOMERO MOSES Attending Unavailable HOMERO MOSES Attending Unavailable HOMERO MOSES Attending Unavailable Allergies Allergy Classification Reported Allergen(s) Allergy Type Date of Onset Reaction(s) Facility (13 sources) Acetaminophen / oxyCODONE Drug Allergy 8 Mental Status Change [facility] (4 sources) cow milk allergenic extract Drug Allergy [address] [facility] (5 sources) Soy protein; Translations: [Soy] Drug Allergy [address] [facility] (6 sources) Mold Extract; Translations: [Mold] Drug Allergy Unknown (origin) (qualifier value) [facility] (6 sources) Pollen; Translations: [Pollen] Drug allergy Unknown (qualifier value) [facility] (6 sources) Grass; Translations: [Grass] Allergy to substance Unknown (qualifier value) [facility] (6 sources) Milk Products; Translations: [Milk Products] Drug allergy Unknown (qualifier value) [facility] (6 sources) Soy/Soy Products; Translations: [Soy/Soy Products] Drug allergy Unknown (qualifier value) [facility] (1 source) Milk Drug allergy (disorder) [facility] (1 source) Wheat preparation Drug Allergy [facility] (9 sources) Memantine Drug Allergy 3 Other, Tinnitus, GI intolerance [facility] (9 sources) WHEAT DEXTRIN Drug Allergy 3 [facility] (9 sources) Milk-Related Compounds Drug Allergy 3 [facility] (9 sources) Soybean-Containin g Drug Products Drug Allergy 3 [facility] Medications Current Medications Medication Drug Class(es) [...] Date: 02/29/16 Status: Ordered calcium carbonate/vitamin D2 (ASDNYNE-785-S ORAL) (4 sources) calcium carbonate/vitamin D2 (QODDJUZ-191-D ORAL) Take by mouth. Active calcium carbonat e/vitamin D2 (OCIXSOL-858-Q ORAL) Take by mouth. 0 Active Comment on above: Take by mouth. Calcium Citrate (13 sources) take 1 tablet by ardha th in the morning CALCIUM CITRATE PO [...] Indications: Alzheimer's disease with late onset (CODE) ([facility]/HCC) TAKE 1 TABLET BY MOUTH EVERY DAY [...] hydrochloride 5 mg oral tablet (7 sources) P-khtyow-T-aspartat e Receptor Antagonist Start: 4 End: 4 [...] Daily, # 30 tab(s), Refills(s) 11, Pharmacy: [facility]/pharmacy #[id number], 150, cm, 01/21/24 15:16:00 EDT, Height/Length [...] misc (5 sources) Start: 06-23-2024 Nebulizers (Compressor/Nebulizer) [facility] Indications: COVID-19 Use 4 times per day [...] Active Start: 02-29-2016 [facility] omeprazole 20 mg Cap-EC [...] by mouth once daily. polyethylene glycol 3350 56158 mg powder for oral solution (9 sources) [...] Daily, # 90 caplet(s), Refills(s) 3, Pharmacy: [facility] #[id number], 150, cm, 01/16/23 15:30:00 [...] twice a day by oral route. thyroid (correction) 60 mg oral tablet (4 sources) take 1 tablet by mouth twice daily thyroid, pork, (CROOK OPERATOR THYROID) 60 mg CROOK OPERATOR Thyroid 60 mg tablet TAKE 1 TABLET BY MOUTH TWICE A DAY ON EMPTY STOMACH Active Comment on above: CROOK OPERATOR Thyroid 60 mg tab let TAKE 1 [...] Start: 02-29-2016 take 1 capsule by mo [facility] once daily verapamil 240 mg Cap-ER 240 [...] procedure, # 2 tab(s), Refills(s) 0, Pharmacy: [facility]/pharmacy #[id number], 150, cm, 03/24/24 14:02:00 EDT, Height/Length [...] (Changing Therapy/Dosage Form) Strontium (3 sources) STRONTIUM VYPTLCUWM-I1-A98-FA ORAL Take by mouth. 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 Sincerely, [facility] , option #3 [facility] Screenson 03-25-2024 Screens [id number]#1.00TI FF [facility] Patient Educationon 03-24-20 24 Patient Education Urology [...] including vitamins, herbs, eye drops, creams, and efmt-woh-zkaqzjn medicines. ? Any problems you or family [...] tells you to take them. ? Taking dbra-ygm-opmfjfi medicines, vitamins, herbs, and supplements. General instructions [...] these instructions at home: Medicines ? Take aqnu-ayv-uaplgit and prescription medicines only as told by [...] health ca (more content not included)... Normal [facility] Urology Office/Clinic Noteon 03-24-2024 Urology Office/Clinic [...] E, URL [address] [place] [address] Additional Instructions: schedule Botox with Dr. Turcios [...] Smokeless Tobacco Use:., (more content not included)... [facility] Comment on above: Result Comment: Elec tronically Signed By: NATHALIE JONES PA-C\.br\Date and Time Signed: 03/24/24 14:21 EDT\.br\Electronically Co-Signed By: Silvia Cueva\.br\Date and Time Co-Signed: 03/24/24 14:18 EDT [facility] 01-22-2024 Screens [id number]#1.00 TIFF [facility] Ambulatory Visit Summaryon 0 01-21-2024 Ambulatory Visit [...] JONES PA-C Where: [facility] Gretta Normal [facility] Patient Educationon 01-21-20 Patient Education Urology [...] stimulation). ? For women, using a medical assistant dermatology to prevent urine leaks. This is a [...] urine. ? (more content not included)... Normal [facility] Urology Office/Clinic Noteon 01-21-2024 Urology Office/Clinic [...] Daily, # 30 tab(s), Refills(s) 11, Pharmacy: [facility]/pharmacy #[id number], 150, cm, 01/21/24 15:16:00 EDT, Height/Length [...] Urnls Dip Stick Auto w/o Microscopy POC 77820 2. Alzheimer disease (G30.9: Alzheimer's disease, unspecified) [...] PA-C, URL [address] [place] [address] [id number] Additional Instructions: 2-3 mos (new med) Patient [...] (1988), Bilat (more content not included)... Normal [facility] Comment on above: Result Comment: Elec tronically Signed By: NATHALIE JONES PA-C\.br\Date and Time Signed: 01/21/24 15:42 EDT\.br\Electronically Co-Signed By: Liset Quevedo\.br\Date and Time Co-Signed: 01/21/24 15:37 EDT Consultation Noteon 07-25-20 Consultation Note [id number]#1.00T IFF Normal [facility] Consultation Noteon 06-11-20 Consultation Note [id number]#1.00CD :[address] [facility] REVERSE T3on 02-12-2023 Reverse T3, Serum 17.8 ng/dL Normal 9.2-24.1 [facility] Comment on above: Performed By: #### T SH, FT3 #### [facility] [address] [address] [address] Silvestre Williamson T3, TOTAL (TRIIODOTHYRONINE) on 01-30-2023 T3, TOTAL 121 ng/dL Normal 71-180 [facility] Comment on above: Performed By: #### T 3TOTAL #### [facility] [address] [place] [address] Dr. Silvestre Williamson FREE T3on 01-29-2023 FREE T3 2.87 pg/mlL Normal 2.18-3.98 [facility] Comment on above: Performed By: #### T SH, FT3 #### [facility] [address] [place] [address] Dr. Silvestre Williamson FREE T4on 01-29-2023 Free T4 [Mass/Vol] 0.64 ng/dL Critically low 0.76-1.46 [facility] Comment on above: Performed By: #### F T4 #### [facility] [address] [place] [address] Dr. Silvestre Williamson TSHon 01-29-2023 TSH 0.220 uIU/mL Critically low 0.358-3.740 [facility] Comment on above: Performed By: #### T SH, FT3 #### [facility] [address] [place] [address] Dr. Silvestre Williamson US MARCELA DOP LEG [...] VALERIE SAWYER Date: 2022-08-24 18:12 Normal [facility] REVERSE T3on 07-31-2022 Reverse T3, Serum 16.3 ng/dL Normal 9.2-24.1 [facility] Comment on above: Result Comment: This test was developed and its performance characteristics determined by [facility]. It has not been cleared or approved by the Food and Drug Administration. Performed By: #### T SH, FT3 #### [facility] [address] [place] [address] Dr. Silvestre Williamson T3, TOTAL (TRIIODOTHYRONINE) on 07-26-2022 T3, TOTAL 156 ng/dL Normal 71-180 [facility] Comment on above: Performed By: #### T 3TOTAL #### [facility] [address] [place] [address] Dr. Silvestre Williamson FREE T3on 07-25-2022 FREE T3 3.85 pg/mlL Normal 2.18-3.98 [facility] Comment on above: Performed By: #### T SH, FT3 #### [facility] [address] [place] [address] Dr. Silvestre Williamson FREE T4on 07-25-2022 Free T4 [Mass/Vol] 1.04 ng/dL Normal 0.76-1.46 [facility] Comment on above: Performed By: #### F T4 #### [facility] [address] [place] [address] Dr. Silvestre Williamson TSHon 07-25-2022 TSH Qn m[IU]/L Critically low 0.358-3.740 [facility] Comment on above: Performed By: #### T SH, FT3 #### [facility] [address] [place] [address] Dr. Silvestre Williamson MG MAMM SCREEN 3D RUBEN CADon 07-04-2022 MG MAMM SCREEN 3D RUBEN CAD Patient: YANET ADAMES Exam Date: 07/04/2022 : 1940 Gender:F Ordering : DR HOMERO MOSES . Admission #: [id number] Family : Order #: [id number] CLICK HERE TO VIEW EXAM RADIOLOGY REPORT [...] colon cancer at age 71. LOCATION: [facility] BREAST COMPOSITION: Heterogeneously dense,which may obscure [...] MD on 07/04/2022 at 09:10 Normal [facility] LIPID PROFILEon 06-06-2022 CHOL-HDL RATIO NORM SEE BELOW Normal [facility] Comment on above: Result Comment: 3.3 - 4.4 LOW RISK 4.4 - 7.1 AVERAGE RISK 7.1 - 11.0 MODERATE RISK >11.0 HIGH RISK Performed By: #### T SH, FT3 #### [facility] [address] [place] [address] Dr. Silvestre Williamson Cholesterol [Mass/Vol] 271 mg/dL Critically high <=200 [facility] Comment on above: Performed By: #### T SH, FT3 #### [facility] [address] [place] [address] Dr. Silvestre Williamson Cholesterol in HDL [Mass/Vol] 122 mg/dL Critically high 40-60 [facility] Comment on above: Performed By: #### T SH, FT3 #### [facility] [address] [place] [address] Dr. Silvestre Williamson Cholesterol in LDL [Mass/Vol] 140.6 mg/dL Normal [facility] Comment on above: Performed By: #### T SH, FT3 #### [facility] [address] [place] [address] Dr. Silvestre Williamson Cholesterol.total/ Cholesterol in HDL [Mass ratio] 2.2 {ratio} Normal [facility] Comment on above: Performed By: #### T SH, FT3 #### [facility] [address] [place] [address] Dr. Silvestre Williamson HDL NORMAL > or = 60 mg/dl - LO W CARDIOVASCULAR RISK <40 mg/dl - HIGH CARDIOVASCULAR RISK Normal [facility] Comment on above: Performed By: #### T SH, FT3 #### [facility] [address] [place] [address] Dr. Silvestre Williamson LDL CALC NORMAL SEE BELOW Normal [facility] Comment on above: Result Comment: <100 mg/dl OPTIMAL 100 - 129 mg/dl NEAR OR ABOVE OPTIMAL 130 - 159 mg/dl BORDERLINE HIGH 160 - 189 mg/dl HIGH >190 mg/dl VERY HIGH Performed By: #### T SH, FT3 #### [facility] [address] [place] [address] Dr. Silvestre Williamson Triglyceride [Mass/Vol] 42 mg/dL Normal <=150 [facility] Comment on above: Performed By: #### T SH, FT3 #### [facility] [address] [place] [address] Dr. Silvestre Williamson VLDL CALC 8.4 mg/dL Normal [facility] Comment on above: Performed By: #### T SH, FT3 #### [facility] [address] [place] [address] Dr. Silvestre Williamson PROF 14(COMP METB)on 022 Albumin [Mass/Vol] 3.4 g/dL Normal 3.4-5.0 [facility] Comment on above: Performed By: #### T SH, FT3 #### [facility] [address] [place] [address] Dr. Silvestre Williamson Albumin/Globulin [Mass ratio] 1.0 {ratio} Normal [facility] Comment on above: Performed By: #### T SH, FT3 #### [facility] [address] [place] [address] Dr. Silvestre Williamson ALP [Catalytic activity/Vol] 62 U/L Normal 46-116 [facility] Comment on above: Performed By: #### T SH, FT3 #### [facility] [address] [place] [address] Dr. Silvestre Williamson ALT [Catalytic activity/Vol] 25 U/L Normal 14-59 [facility] Comment on above: Performed By: #### T SH, FT3 #### [facility] [address] [place] [address] Dr. Silvestre Williamson Anion gap [Moles/Vol] 9.9 mmol/L Normal [facility] Comment on above: Performed By: #### T SH, FT3 #### [facility] [address] [place] [address] Dr. Silvestre Williamson AST [Catalytic activity/Vol] 13 U/L Critically low 15-37 [facility] Comment on above: Performed By: #### T SH, FT3 #### [facility] [address] [place] [address] Dr. Silvestre Williamson Bilirubin [Mass/Vol] 0.4 mg/dL Normal 0.2-1.0 [facility] Comment on above: Performed By: #### T SH, FT3 #### [facility] [address] [place] [address] Dr. Silvestre Williamson Calcium [Mass/Vol] 9.2 mg/dL Normal 8.5-10.1 [facility] Comment on above: Performed By: #### T NEGAR, FT3 #### [facility] [address] [place] [address] Dr. Silvestre Williamson Chloride [Moles/Vol] 104 mmol/L Normal 98-107 [facility] Comment on above: Performed By: #### T SH, FT3 #### [facility] [address] [place] [address] Dr. Silvestre Williamson CO2 [Moles/Vol] 31.6 mmol/L Normal 21.0-32.[address] [facility] Comment on above: Performed By: #### T SH, FT3 #### [facility] [address] [place] [address] Dr. iSlvestre Williamson Creatinine [Mass/Vol] 0.83 mg/dL Normal 0.55-1.02 [facility] Comment on above: Performed By: #### T SH, FT3 #### [facility] [address] [place] [address] Dr. Silvestre Williamson EGFR-AF BRAZILIAN >60 Normal >=60 [facility] Comment on above: Performed By: #### T SH, FT3 #### [facility] [address] [place] [address] Dr. Silvestre Williamson EGFR-NON AF BRAZILIAN >60 Normal >=60 [facility] Comment on above: Performed By: #### T SH, FT3 #### [facility] [address] [place] [address] Dr. Silvestre Williamson Globulin (S) [Mass/Vol] 3.5 g/dL Normal [facility] Comment on above: Performed By: #### T SH, FT3 #### [facility] [address] [place] [address] Dr. Silvestre Williamson Glucose [Mass/Vol] 96 mg/dL Normal 74-106 [facility] Comment on above: Performed By: #### T SH, FT3 #### [facility] [address] [place] [address] Dr. Silvestre Williamson Potassium [Moles/Vol] 4.5 mmol/L Normal 3.5-5.1 [facility] Comment on above: Performed By: #### T SH, FT3 #### [facility] [address] [place] [address] Dr. Silvestre Williamson Protein [Mass/Vol] 6.9 g/dL Normal 6.4-8.2 [facility] Comment on above: Performed By: #### T SH, FT3 #### [facility] [address] [place] [address] Dr. Silvestre Williamson Sodium [Moles/Vol] 141 mmol/L Normal 136-145 [facility] Comment on above: Performed By: #### T SH, FT3 #### [facility] [address] [place] [address] Dr. Silvestre Williamson Urea nitrogen [Mass/Vol] 11.0 mg/dL Normal 7.0-18.0 [facility] Comment on above: Performed By: #### T SH, FT3 #### [facility] [address] [place], [place] [address] Dr. Silvestre Williamson Urea nitrogen/Creatinin e [Mass ratio] 13.3 mg/mg Normal [facility] Comment on above: Performed By: #### T SH, FT3 #### [facility] [address] [place], [place] [address] Dr. Silvestre Reddy 03-01-2022 CNPN Telephone (HEMASA) YANET ADAMES ([id number]) 1940 F Date Time Provider Department 03/01/22 NATALY BATISTA During your visit today, we recorded the following information about you: Nataly Batista RN 03/01/2022 1:46 PM Signed Received call from Yamilet at 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 - MULTI-VITAMIN ORAL [...] VAGINALLY THREE TIMES WEEKLY - thyroid, pork, (CROOK OPERATOR THYROID) 60 mg CROOK OPERATOR Thyroid 60 mg tablet TAKE 1 TABLET [...] mouth once daily. - calcium carbonate/vitamin D2 (NEKQFCC-991-I ORAL) Take by mouth. - Magnesium 250 [...] Status:Closed by NATALY BATISTA on 03/01/22 Normal [facility] CBC W Auto Differential pane l (Bld)on 01-11-2022 Basophils (Bld) [#/Vol] 0.03 10*3/uL Normal <0.11 [facility] Comment on above: Order Comment: Speci men Type: BLOOD SPECIMEN Ordering Facility: [facility] Address: [address] [place] [address] Performed By: #### 5 7021-8 #### [facility] CLIA [id number] [address] [place] [address] Basophils/100 WBC (Bld) 0.5 % Normal [facility] Comment on above: Order Comment: Speci men Type: BLOOD SPECIMEN Ordering Facility: [facility] Address: [address] [place] [address] Performed By: #### 5 7021-8 #### [facility] CLIA [id number] [address] [place] [address] Differential cell count method Nom (Bld) Auto Normal [facility] Comment on above: Order Comment: Speci men Type: BLOOD SPECIMEN Ordering Facility: [facility] Address: [address] [place] [address] Performed By: #### 5 7021-8 #### [facility] CLIA [id number] [address] [place] [address] Eosinophils (Bld) [#/Vol] 0.20 10*3/uL Normal <0.46 [facility] Comment on above: Order Comment: Speci men Type: BLOOD SPECIMEN Ordering Facility: [facility] Address: [address] [place] [address] Performed By: #### 5 7021-8 #### [facility] CLIA [id number] [address] [place] [address] Eosinophils/100 WBC (Bld) 3.0 % Normal [facility] Comment on above: Order Comment: Speci men Type: BLOOD SPECIMEN Ordering Facility: [facility] Address: [address] [place] [address] Performed By: #### 5 7021-8 #### [facility] CLIA [id number] [address] [place] [address] Erythrocyte distribution width (RBC) [Ratio] 14.1 % Normal 11.5-15.0 [facility] Comment on above: Order Comment: Speci men Type: BLOOD SPECIMEN Ordering Facility: [facility] Address: [address] [place] [address] Performed By: #### 5 7021-8 #### [facility] CLIA [id number] [address] [place] [address] Hematocrit (Bld) [Volume fraction] 40.6 % Normal 36.0-46.0 [facility] Comment on above: Order Comment: Speci men Type: BLOOD SPECIMEN Ordering Facility: [facility] Address: [address] [place] [address] Performed By: #### 5 7021-8 #### [facility] CLIA [id number] [address] [place] [address] Hemoglobin (Bld) [Mass/Vol] 13.3 g/dL Normal 11.5-15.5 [facility] Comment on above: Order Comment: Speci men Type: BLOOD SPECIMEN Ordering Facility: [facility] Address: [address] [place] [address] Performed By: #### 5 7021-8 #### [facility] CLIA [id number] [address] [place] [address] IMMATURE GRAN % 0.2 % Normal [facility] Comment on above: Order Comment: Speci men Type: BLOOD SPECIMEN Ordering Facility: [facility] Address: [address] [place] [address] Performed By: #### 5 7021-8 #### [facility] CLIA [id number] [address] [place] [address] IMMATURE GRAN ABS <0.03 Normal <0.10 [facility] Comment on above: Order Comment: Speci men Type: BLOOD SPECIMEN Ordering Facility: [facility] Address: [address] [place] [address] Performed By: #### 5 7021-8 #### [facility] CLIA [id number] [address] [place] [address] Lymphocytes (Bld) [#/Vol] 1.62 10*3/uL Normal 1.00-4.00 [facility] Comment on above: Order Comment: Speci men Type: BLOOD SPECIMEN Ordering Facility: [facility] Address: [address] [place] [address] Performed By: #### 5 7021-8 #### [facility] CLIA [id number] [address] [place] [address] Lymphocytes/100 WBC (Bld) 24.5 % Normal [facility] Comment on above: Order Comment: Speci men Type: BLOOD SPECIMEN Ordering Facility: [facility] Address: [address] [place] [address] Performed By: #### 5 7021-8 #### [facility] CLIA [id number] [address] [place] [address]641 MCH (RBC) [Entitic mass] 30.9 pg Normal 26.0-34.0 [facility] Comment on above: Order Comment: Speci men Type: BLOOD SPECIMEN Ordering Facility: [facility] Address: [address] [place] [address] Performed By: #### 5 7021-8 #### [facility] CLIA [id number] [address] [place] [address]75 MCHC (RBC) [Mass/Vol] 32.8 g/dL Normal 30.5-36.0 [facility] Comment on above: Order Comment: Speci men Type: BLOOD SPECIMEN Ordering Facility: [facility] Address: [address] [place] [address] Performed By: #### 5 7021-8 #### [facility] CLIA [id number] [address] [place] [address] 74930 MCV (RBC) [Entitic vol] 94.2 fL Normal 80.0-100.0 [facility] Comment on above: Order Comment: Speci men Type: BLOOD SPECIMEN Ordering Facility: [facility] Address: [address] [place] [address] Performed By: #### 5 7021-8 #### [facility] CLIA [id number] [address] [place] [address] 40669 Monocytes (Bld) [#/Vol] 0.49 10*3/uL Normal <0.87 [facility] Comment on above: Order Comment: Speci men Type: BLOOD SPECIMEN Ordering Facility: [facility] Address: [address] [place] [address] Performed By: #### 5 7021-8 #### [facility] CLIA [id number] [address] [place] [address] 51646 Monocytes/100 WBC (Bld) 7.4 % Normal [facility] Comment on above: Order Comment: Speci men Type: BLOOD SPECIMEN Ordering Facility: [facility] Address: [address] [place], [place] [address] Performed By: #### 5 7021-8 #### [facility] CLIA [id number] [address] [place] [address] 32342 Neutrophils (Bld) [#/Vol] 4.25 10*3/uL Normal 1.45-7.50 [facility] Comment on above: Order Comment: Speci men Type: BLOOD SPECIMEN Ordering Facility: [facility] Address: [address] [place], [place] [id number] Performed By: #### 5 7021-8 #### [facility] CLIA [id number] [address] [place] [address] 47283 Neutrophils/100 WBC (Bld) 64.4 % Normal [facility] Comment on above: Order Comment: Speci men Type: BLOOD SPECIMEN Ordering Facility: [facility] Address: [address] [place] [address] Performed By: #### 5 7021-8 #### [facility] CLIA [id number] [address] [place] [address] 85118 Nucleated RBC (Bld) [#/Vol] 10*3/uL Normal <0.01 [facility] Comment on above: Order Comment: Speci men Type: BLOOD SPECIMEN Ordering Facility: [facility] Address: [address] [place] [address] Performed By: #### 5 7021-8 #### [facility] CLIA [id number] [address] [place] [address] 42521 Nucleated RBC/100 WBC (Bld) [Ratio] 0.0 /100 WBC Normal [facility] Comment on above: Order Comment: Speci men Type: BLOOD SPECIMEN Ordering Facility: [facility] Address: [address] [place] [address] Performed By: #### 5 7021-8 #### [facility] CLIA [id number] [address] [place] [address] 48642 Platelet mean volume (Bld) [Entitic vol] 9.8 fL Normal 9.0-12.7 [facility] Comment on above: Order Comment: Speci men Type: BLOOD SPECIMEN Ordering Facility: [facility] Address: [address] [place], [place] [id number] Performed By: #### 5 7021-8 #### [facility] CLIA [id number] [address] [place] [address] 86739 Platelets (Bld) [#/Vol] 222 10*3/uL Normal 150-400 [facility] Comment on above: Order Comment: Speci men Type: BLOOD SPECIMEN Ordering Facility: [facility] Address: [address] [place], [place] [id number] Performed By: #### 5 7021-8 #### [facility] CLIA [id number] [address] [place] [address] 36573 RBC (Bld) [#/Vol] 4.31 10*6/uL Normal 3.90-5.20 [facility] Comment on above: Order Comment: Speci men Type: BLOOD SPECIMEN Ordering Facility: [facility] Address: [address] [place] [address] Performed By: #### 5 7021-8 #### [facility] CLIA [id number] [address] [place] [address] 35197 WBC (Bld) [#/Vol] 6.60 10*3/uL Normal 3.70-11.00 [facility] Comment on above: Order Comment: Speci men Type: BLOOD SPECIMEN Ordering Facility: [facility] Address: [address] [place] [address] Performed By: #### 5 7021-8 #### [facility] CLIA [id number] [address] [place] [address] 90751 CNOVSPon 01-11-2022 [facility] Visit (SP) Office ([facility]) YANET ADAMES ([id number]) 1940 F Date Time Provider Department 01/11/22 1:00 PM PRANAV BERMUDEZ During your visit today, we recorded the following information about you: Temperature Pulse Respiration Blood pressure 97.1 degrees 81/minute 16/minute 131/79 Weight Height 62 kg 1.499 m Pranav Bermudez MD 01/11/2022 8:32 PM Signed NAME: Yanet Adames CLINIC NO.: [id number] DATE OF SERVICE: January 11, 2022 Some [...] that her diagnosis was found originally in [place] after which she decided to move up here permanently. Her is retired from [employer]. ? Some background history that are reviewed today reveals that she originally presented in consultation 02/06/18 with a new diagnosis of breast cancer. She was taken to lumpectomy 01/24/18 with the finding of a 2 cm sized ER and MI positive, HER 2 negative breast cancer. 0/5 [...] right axillary node excision and lumpectomy 2cm ER/MI positive 100%/80%, Her2 negative by FISH right [...] Wt 13 (more content not included)... Normal [facility] Comprehensive metabolic 2000 panelon 01-11-2022 Albumin [Mass/Vol] 4.4 g/dL Normal 3.9-4.9 [facility] Comment on above: Order Comment: Speci men Type: BLOOD SPECIMEN Ordering Facility: [facility] Address: [address] [place] [address] Performed By: #### 2 4323-8 #### [facility] CLIA [id number] [address] [place] [address] 59251 ALP [Catalytic activity/Vol] 61 U/L Normal 34-123 [facility] Comment on above: Order Comment: Speci men Type: BLOOD SPECIMEN Ordering Facility: [facility] Address: [address] [place] [address] Performed By: #### 2 4323-8 #### [facility] CLIA [id number] [address] [place] [address] 82826 ALT [Catalytic activity/Vol] 12 U/L Normal 7-38 [facility] Comment on above: Order Comment: Speci men Type: BLOOD SPECIMEN Ordering Facility: [facility] Address: [address] [place] [address] Performed By: #### 2 4323-8 #### [facility] CLIA [id number] [address] [place] [address] 12674 Anion gap [Moles/Vol] 6 mmol/L Low 9-18 [facility] Comment on above: Order Comment: Speci men Type: BLOOD SPECIMEN Ordering Facility: [facility] Address: [address] [place] [address] Performed By: #### 2 4323-8 #### [facility] CLIA [id number] [address] [place] [address] 89919 AST [Catalytic activity/Vol] 14 U/L Normal 13-35 [facility] Comment on above: Order Comment: Speci men Type: BLOOD SPECIMEN Ordering Facility: [facility] Address: [address] [place] [address] Performed By: #### 2 4323-8 #### [facility] CLIA [id number] [address] [place] [address] Bilirubin [Mass/Vol] 0.3 mg/dL Normal 0.2-1.3 [facility] Comment on above: Order Comment: Speci men Type: BLOOD SPECIMEN Ordering Facility: [facility] Address: [address] [place] [address] Performed By: #### 2 4323-8 #### [facility] CLIA [id number] [address] [place] [address] 62591 Calcium [Mass/Vol] 9.8 mg/dL Normal 8.5-10.2 [facility] Comment on above: Order Comment: Speci men Type: BLOOD SPECIMEN Ordering Facility: [facility] Address: [address] [place] [address] Performed By: #### 2 4323-8 #### [facility] CLIA [id number] [address] [place] [address] 48389 Chloride [Moles/Vol] 103 mmol/L Normal 97-105 [facility] Comment on above: Order Comment: Speci men Type: BLOOD SPECIMEN Ordering Facility: [facility] Address: [address] [place], [place] [id number] Performed By: #### 2 4323-8 #### [facility] CLIA [id number] [address] [place] [address] 25913 CO2 [Moles/Vol] 27 mmol/L Normal 22-30 [facility] Comment on above: Order Comment: Speci men Type: BLOOD SPECIMEN Ordering Facility: [facility] Address: [address] [place] [address] Performed By: #### 2 4323-8 #### [facility] CLIA [id number] [address] [place] [address] 14812 Creatinine [Mass/Vol] 0.93 mg/dL Normal 0.58-0.96 [facility] Comment on above: Order Comment: Corey guillen Type: BLOOD SPECIMEN Ordering Facility: [facility] Address: [address] [id number] Performed By: #### 2 4323-8 #### [facility] CLIA [id number] [address] [place] [address] 02778 ESTIMATED GLOMERULAR FILTRATION RATE 62 mL/min/1.73m??? Normal >=60 [facility] Comment on above: Order Comment: Corey guillen Type: BLOOD SPECIMEN Ordering Facility: [facility] Address: [address] [place] [address] Result Comment: Mag mated Glomerular Filtration Rate [...] GFR. Performed By: #### 2 4323-8 #### [facility] CLIA [id number] [address] [place] [address] 53327 Glucose [Mass/Vol] 97 mg/dL Normal 74-99 [facility] Comment on above: Order Comment: Corey guillen Type: BLOOD SPECIMEN Ordering Facility: [facility] Address: [address] [place] [address] Result Comment: The [place] [employer] (ADA) provides guidance for cutoff [...] Standards of Medical Care in Diabetes 2016, [place] [employer]. Diabetes Care. 2016.39(Suppl 1). Performed By: #### 2 4323-8 #### [facility] CLIA [id number] [address] [place] [address] 52130 Potassium [Moles/Vol] 4.1 mmol/L Normal 3.7-5.1 [facility] Comment on above: Order Comment: Speci men Type: BLOOD SPECIMEN Ordering Facility: [facility] Address: [address] [place] [address] Performed By: #### 2 4323-8 #### [facility] CLIA [id number] [address] [place] [address] 40226 Protein [Mass/Vol] 7.2 g/dL Normal 6.3-8.0 [facility] Comment on above: Order Comment: Speci men Type: BLOOD SPECIMEN Ordering Facility: [facility] Address: [address] [place] [address] Performed By: #### 2 4323-8 #### [facility] CLIA [id number] [address] [place] [address] 97631 Sodium [Moles/Vol] 136 mmol/L Normal 136-144 [facility] Comment on above: Order Comment: Speci men Type: BLOOD SPECIMEN Ordering Facility: [facility] Address: [address] [place] [address] Performed By: #### 2 4323-8 #### [facility] CLIA [id number] [address] [place] [address] 57083 Urea nitrogen [Mass/Vol] 25 mg/dL High 7-21 [facility] Comment on above: Order Comment: Speci men Type: BLOOD SPECIMEN Ordering Facility: [facility] Address: [address] [place] [address] Performed By: #### 2 4323-8 #### [facility] CLIA [id number] [address] [place] [address] 66945 CNPNon 01-03-2022 [facility] Telephone ([facility]) YANET ADAMES ([id number]) 1940 F Date Time Provider Department 01/03/22 [...] [Z13.820] Order(s):CBC + DIFF [SQCBCDIF] Order #: [id number] FUTURE COMP METABOLIC PANEL [SQCMP] Order #: [id number] FUTURE Prescriptions as of 01/04/2022 - anastrozole (ARIMIDEX) 1 mg tablet TAKE 1 TABLET BY MOUTH EVERY DAY - solifenacin (VESICARE) 5 mg tablet TAKE 1 TABLET BY MOUTH DAILY FOR 2 WEEKS THEN INCREASE TO 2 TABLETS DAILY TOLERATING SIDE EFFECTS - STRONTIUM [id number] ORAL Take by mouth. - MULTI-VITAMIN ORAL [...] VAGINALLY THREE TIMES WEEKLY - thyroid, pork, (CROOK OPERATOR THYROID) 60 mg CROOK OPERATOR Thyroid 60 mg tablet TAKE 1 TABLET [...] mouth once daily. - calcium carbonate/vitamin D2 (OQIQVOB-652-I ORAL) Take by mouth. - Magnesium 250 [...] pathol*01/12/2021 Encounter Status:Closed by KARLENEDecember on 01/03/22 [facility] CNOVSPon 07-13-2021 OVSP Visit (SP) Office ([facility]) YANET ADAMES ([id number]) 1940 F Date Time Provider Department 07/13/21 10:45 AM PRANAV BERMUDEZ During your visit today, we recorded the following information about you: Temperature Pulse Respiration Blood pressure 97 degrees 91/minute 16/minute 151/80 Weight Height 59.1 kg 1.499 m Pranav Bermudez MD 07/13/2021 1:04 PM Signed NAME: Yanet Adames CLINIC NO.: [id number] DATE OF SERVICE: July 13, 2021 Some [...] that her diagnosis was found originally in [place] after which she decided to move up here permanently. Her is retired from [employer]. ? Some background history that are reviewed today reveals that she originally presented in consultation 02/06/18 with a new diagnosis of breast cancer. She was taken to lumpectomy 01/24/18 with the finding of a 2 cm sized ER and MI positive, HER 2 negative breast cancer. 0/5 [...] right axillary node excision and lumpectomy 2cm ER/MI positive 100%/80%, Her2 negative by FISH right [...] be respirin (more content not included)... Normal [facility] MR Brain WO and W contrast I [...] OTHERWISE NORMAL IN APPEARANCE WITHOUT PATHOLOGIC ENHANCEMENT. Outside Plant Field Engineer: MACHO Transcribe Date/Time: Apr 28 2021 10:16A Dictated by : YURIY RODGERS MD This examination was interpreted and the report reviewed and electronically signed by: YURIY RODGERS MD on Apr 28 2021 10:20AM [facility] DIVISION OF RADIOLOGY * * *Final Report* * * DATE OF EXAM: Apr 28 2021 10:09AM [facility] 0295 - MRI BRAIN WO/W IVCON [...] are grossly clear. DIVISION OF RADIOLOGY Provider, [facility] - 04/28/2021 * * *Final Report* * * DATE OF EXAM: Apr 28 2021 10:09AM [facility] 0295 - MRI BRAIN WO/W IVCON [...] OTHERWISE NORMAL IN APPEARANCE WITHOUT PATHOLOGIC ENHANCEMENT. Outside Plant Field Engineer: PSCB Transcribe Date/Time: Apr 28 2021 10:16A Dictated by : YURIY RODGERS MD This examination was interpreted and the report reviewed and electronically signed by: YURIY RODGERS MD on Apr 28 2021 10:20AM EST [facility] Radiology Study observation (narrative) [facility] MR Brain WO and W contrast I VOrdered By: [facility]cf Provider on 04-28-[address] [facility] MRI BRAIN WO/W IVCONon 04-28 [...] OTHERWISE NORMAL IN APPEARANCE WITHOUT PATHOLOGIC ENHANCEMENT. Outside Plant Field Engineer: [facility] Transcribe Date/Time: Apr 28 2021 10:16A Dictated by : YURIY RODGERS MD This examination was interpreted and the report reviewed and electronically signed by: YURIY RODGERS MD on Apr 28 2021 10:20AM EST [id number] Normal [facility] CNOVon 04-14-2021 CNOV Office Visit ([facility] ) YANET ADAMES ([id number]) 1940 F Date Time Provider Department 04/14/21 3:00 PM OCT EXAM READ [facility] During your visit today, we recorded the following information about you: Nisreen De La Cruz MA 04/14/2021 3:24 PM Signed OCT completed per Epic order Nisreen De La Cruz CMA April 14, 2021 3:23 PM Referring Provider: MARCUS MUNOZ [[id number]] Allergies As of Date: 04/14/2021 Noted Allergy [...] VAGINALLY THREE TIMES WEEKLY - thyroid, pork, (CROOK OPERATOR THYROID) 60 mg CROOK OPERATOR Thyroid 60 mg tablet TAKE 1 TABLET [...] mouth once daily. - calcium carbonate/vitamin D2 ([id number]-850-C ORAL) Take by mouth. - Magnesium 250 [...] 3:23 PM Status: Signed OCT completed per [facility] order Nisreen De La Cruz CMA April 14, 2021 3:23 PM Encounter Status:Closed by BRENDA JUNIOR on 04/30/21 Normal [facility] CNOV Office Visit ([facility] ) YANET ADAMES ([id number]) 1940 F Date Time Provider Department 04/14/21 2:00 PM MARCUS MUNOZ During your visit today, we recorded the following information about you: Pulse Blood pressure Weight Height 87/minute 149/51 57.2 kg 1.499 m Marcus Munoz MD 04/18/2021 8:[address] [facility] MULTIPLE SCLEROSIS NEW PATIENT EVALUATION/CONSULTATION Referral source: Shadia Barrera OD [address] [place] [address] Also followed by: Patient Care Team: Homero [...] a past medical history of stage I ER/MI+ve HER-2neu -ve breast cancer s/p lumpectomy, radiation and adjuvant anastrazole, Hyppothyroidism, hypercholesterolemia, and osteoporosis. She presents today with a chief concern of abnormal visual starkey testing (perimetry). She was getting her routine eye examination when the captain room service/optomet rist who noted an abnormality on her [...] VAGINALLY THREE TIMES WEEKLY - thyroid, pork, (CROOK OPERATOR THYROID) 60 mg CROOK OPERATOR Thyroid 60 mg tablet TAKE 1 TABLET BY MOUTH TWICE A DAY ON EMPTY STOMACH - sucralfate (CARAFATE) 1 gram tablet Carafate 1 gram tablet Take 1 tablet twice a day by oral route. - CALCIUM CITRATE ORAL Take by mouth. (more content not included)... Normal [facility] Vital Signs Date Time Vital Sign Value Performing Clinician Facility 07-14-2024 12:03-0400 Body height 149.9 cm Homero Moses MD Work Phone: [facility] 07-14-2024 12:03-0400 Body mass index (BMI) [Ratio] 26.26 kg/m2 Homero Moses MD Work Phone: [facility] 07-14-2024 12:03-0400 Body weight 58.97 kg Homero Moses MD Work Phone: [facility] 06-23-2024 08:46-0400 Body height 149.9 cm Homero Moses MD Work Phone: [facility] 06-23-2024 08:46-0400 Body mass index (BMI) [Ratio] 26.26 kg/m2 Homero Moses MD Work Phone: [facility] 06-23-2024 08:46-0400 Body weight 58.97 kg Homero Moses MD Work Phone: [facility] 06-23-2024 08:46-0400 Diastolic blood pressure 70 mm[Hg] Homero Moses MD Work Phone: [facility] 06-23-2024 08:46-0400 Heart rate 83 /min Homero Moses MD Work Phone: [facility] 06-23-2024 08:46-0400 SaO2% (BldA) [Mass fraction] 97 % Homero Moses MD Work Phone: [facility] 06-23-2024 08:46-0400 Systolic blood pressure 120 mm[Hg] Homero Moses MD Work Phone: [facility] 03-24-2024 13:59-0400 Blood Pressure Location NATHALIE ROBERT [facility] 03-24-2024 13:59-0400 Diastolic blood pressure 76 mm[Hg] NATHALIE ROBERT [facility] 03-24-2024 13:59-0400 Heart rate 80 /min NATHALIE ROBERT [facility] 03-24-2024 13:59-0400 Respiratory rate 16 /min NATHALIE ROBERT [facility] 03-24-2024 13:59-0400 Systolic blood pressure 127 mm[Hg] NATHALIE ROBERT [facility] 01-21-2024 15:09-0400 Blood Pressure Location NATHALIE ROBERT [facility] 01-21-2024 15:09-0400 Body temperature 98.06 [degF] NATHALIE ROBERT [facility] 01-21-2024 15:09-0400 Diastolic blood pressure 58 mm[Hg] NATHALIE ROBERT [facility] 01-21-2024 15:09-0400 Heart rate 84 /min NATHALIE ROBERT [facility] 01-21-2024 15:09-0400 Respiratory rate 16 /min NATHALIE ROBERT [facility] 01-21-2024 15:09-0400 Systolic blood pressure 112 mm[Hg] NATHALIE ROBERT [facility] 11-06-2023 11:02-0500 Body height 149.9 cm Homero Moses MD Work Phone: [facility] 11-06-2023 11:02-0500 Body mass index (BMI) [Ratio] 27.27 kg/m2 Homero Moses MD Work Phone: [facility] 11-06-2023 11:020500 Body weight 61.24 kg Homero Moses MD Work Phone: [facility] 01-16-2023 15:29-0400 Blood Pressure Location NATHALIE ROBERT [facility] 01-16-2023 15:29-0400 Diastolic blood pressure 74 mm[Hg] NATHALIE ROBERT [facility] 01-16-2023 15:29-0400 Heart rate 68 /min NATHALIE ROBERT [facility] 01-16-2023 15:29-0400 Respiratory rate 16 /min NATHALIE ROBERT [facility] 01-16-2023 15:29-0400 Systolic blood pressure 128 mm[Hg] NATHALIE ROBERT [facility] 10-10-2022 09:09-0500 Blood Pressure Location Milly Jolley [facility] 10-10-2022 09:09-0500 Diastolic blood pressure 70 mm[Hg] Milly Jolley [facility] 10-10-2022 09:09-0500 Heart rate 76 /min Milly Jolley [facility] 10-10-2022 09:09-0500 Respiratory rate 16 /min Milly Jolley [facility] 10-10-2022 09:09-0500 Systolic blood pressure 117 mm[Hg] Milly Jolley [facility] 01-11-2022 12:33-0400 Body height 149.9 cm Pranav Bermudez MD Work Phone: [facility] 01-11-2022 12:33-0400 Body temperature 97.11 [degF] Pranav Bermudez MD Work Phone: [facility] 01-11-2022 12:33-0400 Body weight 61.96 kg Pranav Bermudez MD Work Phone: [facility] 01-11-2022 12:33-0400 Diastolic blood pressure 79 mm[Hg] Pranav Bermudez MD Work Phone: [facility] 01-11-2022 12:33-0400 Heart rate 81 /min Pranav Bermudez MD Work Phone: [facility] 01-11-2022 12:33-0400 Respiratory rate 16 /min Pranav Bermudez MD Work Phone: [facility] 01-11-2022 12:33-0400 SaO2% (BldA) [Mass fraction] 98 % Pranav Bermudez MD Work Phone: [facility] 01-11-2022 12:33-0400 Systolic blood pressure 131 mm[Hg] Pranav Bermudez MD Work Phone: [facility] Encounters Encounter Date Encounter Type [...] [facility] Comment on above: [id number] condit ion (Primary Dx); Rhinorrhea; Enlarged tonsils; Myalgia, multiple sites; Overweight Start: 06-23-2024 End: 06-23-2024 Office outpatient visit 15 minutes Homero Moses MD Work Phone: [facility] Comment on above: COVID-19 (Primary Dx ) Start: 06-23-2024 End: 06-23-2024 ambulatory HOMERO MOSES Not Available Start: 05-14-2024 End: 06-24-2024 Pre-admission assessment Aldair TURCIOS [facility] Start: 05-04-2024 End: 05-04-2024 ambulatory HOMERO MOSES Not Available Start: 03-24-2024 End: 03-24-2024 ambulatory NATHALIE JONES Facility:[facility] Start: 03-24-2024 End: 03-24-2024 Patient encounter procedure NATHALIE JONES [facility] Start: 03-17-2024 End: 03-17-2024 ambulatory HOMERO MOSES Not Available Start: 03-04-2024 End: 03-04-2024 ambulatory HOMERO MOSES Not Available Start: 02-10-2024 End: 02-10-2024 ambulatory HOMERO MOSES Not Available Start: 01-21-2024 End: 01-21-2024 ambulatory NATHALIE JONES Facility:[facility] Start: 01-21-2024 End: 01-21-2024 Patient encounter procedure NATHALIE JONES [facility] Start: 11-06-2023 Bamboo flowsheet Homero sharma [...] encounter procedure NATHALIE JONES [facility] Start: 10-10-2022 End: 10-10-2022 Patient encounter procedure Milly Jolley [facility] Start: 08-29-2022 End: 08-30-[address] EDGARD [...] End: 04-28-2021 Subsequent hospital visit by physician [facility] Billie (1.5t) Work Phone: Radiology Comment on above: Diplopia [H53.2] Start: 01-07-2018 End: 01-08-2018 Ambulatory DEFAULT PHYSICIAN Facility:[facility] Procedures Date Procedure Procedure Detail [...] Author Start: 01-11-2025 DIABETES SCREEN DIABETES SCREEN [facility] Start: 01-11-2025 Diabetes Screening Diabetes Screenyolanda gómez [facility] Start: 09-10-2024 End: 09-10-2024 Patient encounter procedure 09/10/2024 11:30 AM EST Office Visit [facility] [address] [address] Homero Moses MD [address] [place] [address] (Fax) [facility] Start: 05-31-2024 Covid-19 Vaccine ( season) Covid-19 Vaccine ( season) [facility] Start: 05-31-2024 Influenza vaccination Influenza Vacc ine (#1) 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 Start: 05-31-2023 Influenza vaccination Influenza Vacc ine (#1) [facility] Start: 07-13-2022 End: 01-11-2023 CBC W Auto Differential panel - Blood CBC + DIFF Lab Routine Malignant neoplasm of right breast in female, estrogen receptor positive, unspecified site of breast (HCC) Osteoporosis due to aromatase inhibitor Expected: 07/13/2022 (Approximate), Expires: 01/11/2023 [facility] Work Phone: Comment on above: Expected: 07/13/2022 (Approximate), Expires: 01/11/2023 Start: 07-13-2022 End: 01-11-2023 Comprehensive metabolic 2000 panel - Serum or Plasma COMP METABOLIC PANEL Lab Routine Malignant neoplasm of right breast in female, estrogen receptor positive, unspecified site of breast (HCC) Osteoporosis due to aromatase inhibitor Expected: 07/13/2022 (Approximate), Expires: 01/11/2023 [facility] Work Phone: Comment on above: Expected: 07/13/2022 (Approximate), Expires: 01/11/2023 Start: 09-30-2021 ADVANCE DIRECTIVE DISCUSSION ADVANCE DIRECTIVE DISCUSSION [facility] Start: 06-10-2020 Adult depression screening assessment DEPRESSION SCREENING [facility] Start: 2016 RSV Vaccine (1 - 1-d ose 75+ series) RSV Vaccine (1 - 1-dose 75+ series) [facility] Start: 2006 BONE DENSITY BONE DENSITY [facility] Start: 2006 Pneumococcal Vaccine : 65+ (1 of 1 - PCV) Pneumococcal Vaccine: 65+ (1 of 1 - PCV) [facility] Start: 2006 PNEUMOVAX AGE 65 AND OVER WITH 5YR LOOKBACK (#1) PNEUMOVAX AGE 65 AND OVER WITH 5YR LOOKBACK (#1) [facility] Start: 2006 Screening for osteoporosis Bone Density Screening [facility] Start: 11-29-1991 SHINGRIX VACCINE (1 of 2) SHINGRIX VACCINE (1 of 2) [facility] Start: 1960 Urine microalbumin profile [facility] Start: 11-29-1959 Anxiety Screening Anxiety Screening [facility] Start: 11-29-1959 Depression Screening Depression Scre ening [facility] Start: 11-29-1947 Pneumococcal Vaccine : 65+ Years (1 - PCV) Pneumococcal Vaccine: 65+ Years (1 - PCV) [facility] Start: 11-29-1947 Pneumococcal Vaccine : 65+ Years (1 of 2 - PCV) Pneumococcal Vaccine: 65+ Years (1 of 2 - PCV) [facility] Start: 11-29-1947 PNEUMOCOCCAL: 65+ (1 - PCV) PNEUMOCOCCAL: 65+ (1 - PCV) [facility] End: 03-31-2023 Diagnostic mammography computer-aided detcj bi [facility] DIAGNOSTIC BILAT Radiology Routine Malignant neoplasm of lower-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, estrogen receptor positive (HCC) 1 Occurrences starting 03/01/2022 until 03/31/2023 [facility] Work Phone: Comment on above: 1 Occurrences starti ng 03/01/2022 until 03/31/[facility] Immunization Date Immunization Notes Care Provider Belinda [facility] 08-29-2022 SARS-CoV-2 (COVID-19 ) mRNA-1273 vaccine NATHALIE JONES [facility] 07-25-2022 influenza virus vaccine, unspecified formulation NATHALIE JONES [facility] 07-25-2022 influenza, injectabl e, quadrivalent, preservative free Homero Moses MD Work Phone: [facility] 08-18-2021 influenza (aIIV4) vaccine, age 65+ yr, quadrivalent, PF (FLUAD QUADRIVALENT) [facility] Work Phone: [facility] 08-18-2021 influenza virus vaccine, unspecified formulation Milly Jolley [facility] 07-26-2021 SARS-CoV-2 (COVID-19 ) mRNA-1273 vaccine Milly Jolley [facility] 02-28-2021 COVID-19 vaccine, ag e 12+ yr (PFIZER-BIONTECH - PURPLE TOP) [facility] [place] Work Phone: [facility] 02-06-2021 COVID-19 vaccine, ag e 12+ yr (PFIZER-BIONTECH - PURPLE TOP) [facility] [place] Work Phone: [facility] 12-13-2020 COVID-19 vaccine, fu ll dose (MODERNA) [facility] [place] Work Phone: [facility] 12-12-2020 Moderna SARS-CoV-2 Vaccination Homero Moses MD Work Phone: [facility] 11-17-2020 COVID-19 vaccine, fu ll dose (MODERNA) [facility] [place] Work Phone: [facility] 11-16-2020 Moderna SARS-CoV-2 Vaccination Homero Moses MD Work Phone: [facility] 07-04-2020 influenza, high dose seasonal, preservative-free [facility] [place] Work Phone: [facility] 07-13-2019 influenza virus vaccine, unspecified formulation Milly Mariemons [facility] 07-13-2019 influenza, injectabl e, quadrivalent, preservative free [facility] [place] Work Phone: [facility] 10-07-2018 influenza virus vaccine, unspecified formulation Milly Mariemons [facility] 10-07-2018 influenza, high dose seasonal, preservative-free [facility] [place] Work Phone: [facility] 07-07-2018 influenza virus vaccine, unspecified formulation Milly Mariemons [facility] 07-07-2018 influenza, injectabl e, quadrivalent, preservative free [facility] [place] Work Phone: [facility] 07-08-2017 influenza virus vaccine, unspecified formulation Milly Jolley [facility] 07-08-2017 influenza, high dose seasonal, preservative-free [facility] [place] Work Phone: [facility] 07-08-2017 influenza, injectabl e, quadrivalent, preservative free [facility] [place] Work Phone: [facility] Payers Date Payer Category Payer Medicare DEVOTED MEDICARE DEVOTED HEALTH [id number] 2020-Present [phone] [address] YANIRA BRASWELL [address] HMO [id number] 2020 Medicare DEVOTED MEDICARE DEVOTED HEALTH [place] HMO [id number] 2020-Present [phone] [address] YANIRA BRASWELL [address] HMO [id number] 2020 Medicare (Managed Care) DEVOTED HEALTH [id number] 2020 Unknown 2020 Unknown [id number] Self-pay 1941 Unknown [id number] 2.16.840.1.138972.3.579. 2.593 1941 Unknown [id number] 2.16.840.1.864841.3.579. 2.593 1941 Unknown [id number] 2.16.840.1.163393.3.579. 2.593 1941 Unknown [id number] 2.16.840.1.270829.3.579. 2.593 1941 Unknown [id number] 2.16.840.1.753016.3.579. 2.593 1941 Unknown [id number] 2.16.840.1.601509.3.579. 2.727 1941 Unknown [id number] 2.16.840.1.287932.3.579. 2.727 1941 Unknown [id number] 2.16.840.1.798110.3.579. 2.1259 1941 Unknown [id number] 2.16.840.1.729800.3.579. 2.1259 1941 Unknown [id number] 2.16.840.1.946817.3.579. 2.1259 1941 Unknown [id number] 2.16.840.1.085767.3.579. 2.1259 1941 Unknown [id number] 2.16.840.1.702771.3.579. 2.1259 1941 Unknown [id number] 2.16.840.1.205516.3.579. 2.1259 1941 Unknown [id number] 2.16.840.1.475605.3.579. 2.1259 1941 Unknown [id number] 2.16.840.1.368841.3.579. 2.1259 Unknown [id number] 2.16.840.1.223953.3.579. 2.593 Social History Date Type Detail Facility Start: 02-06-2018 End: 08-08-2023 Tobacco smoking status NHIS Never smoked tobacco [facility] Start: 02-06-2018 End: 08-08-2023 Tobacco use and exposure Smokeless tobacco non-user [facility] Start: 01-11-2022 End: 07-14-2024 Alcohol intake Current drinker of alcohol (finding) [facility] Start: 01-11-2022 End: 05-01-2024 Alcohol intake [facility] Start: 1940 Sex Assigned At Not on file [facility] Start: 03-29-2021 End: 01-11-2022 Exposure to SARS-CoV-2 (event) Not sure [facility] Start: 08-12-2023 End: 05-01-2024 Sex Assigned At Female [facility] Tobacco smoking status Never [facility] Start: 05-20-2023 Alcohol Comment Caffeine intak [...] 03-24-2024 Functional Status N/A [facility] 01-21-2024 Functional Status N/A [facility] 01-16-2023 Functional Status N/A [facility] 10-10-2022 Functional Status N/A [facility] [place] Clinical Notes 04-14-2021 to 07-14-2024 Homero [...] mcg) in the evening. Take before meals. [employer] or [employer] brand only. 270 tablet 0 meclizine (Antivert) [...] medications on file prior to visit. 1. Sywq-[id number]-05 condition (Primary) Acute that the patient believes [...] doing. 5. Overweight documented in this encounter [facility] 06-23-2024 History of Present illness Narrative Images [...] mcg) in the evening. Take before meals. [employer] or [employer] brand only. 270 tablet 0 PARoxetine (Paxil) [...] mL; Refill: 0 documented in this encounter [facility] 03-24-2024 Hospital Discharge instructions Patient Education 03/24/2024 [...] including vitamins, herbs, eye drops, creams, and govk-rnj-zidqirt medicines. Any problems you or family members [...] provider tells you to take them. Taking ljqs-wss-npidtmi medicines, vitamins, herbs, and supplements. General instructions [...] Follow these instructions at home: Medicines Take fapa-msg-oxxevwq and prescription medicines only as told by [...] provider. Document Revised: 03/23/2022 Document Reviewed: 03/23/2022 [employer] Patient Education 2022 [employer]. Follow Up Care 01/21/2024 15:37:15 With:NATHALIE JONES PA-C, URL Address: [address] [place] [address] When: Unknown [facility] 01-21-2024 Hospital Discharge instructions Patient Education [...] nerve stimulation). ?For women, using a medical assistant dermatology to prevent urine leaks. This is a [...] right after experiencing incontinence. General instructions Take qegt-koz-goyppti and prescription medicines only as told by [...] important. Where to find more information National [place] of Diabetes and Digestive and Kidney Diseases: www.niddk.nih.gov [employer]: www.urologyhealth.org Contact a health care [...] provider. Document Revised: 04/21/2021 Document Reviewed: 04/21/2021 [employer] Patient Education 2022 [employer]. Follow Up Care 01/16/2023 15:54:08 With:NATHALIE JONES PA-C, URL Address: [address] [place] [address] [phone] When: Unknown [facility] 11-06-2023 History of Present illness Narrative [...] 0.55 - 1.02 mg/dL Final [facility] EGFR-AF BRAZILIAN 08/14/2023 >60 >=60 Final [facility]H EGFR-NON AF BRAZILIAN 08/14/2023 >60 >=60 Final BUN CREATININE RATIO [...] - 180 ng/dL Final Comment: Performed at: [address] [id number] Phlebotomy Support Tech: Devin Pichardo PhD, Phone: [phone] REVERSE T3, SERUM 07/24/2023 21.2 9.2 - 24.1 ng/dL Final Comment: This test was developed and its performance characteristics determined by [facility]. It has not been cleared or approved by the Food and Drug Administration. Performed at: [address] [id number] Phlebotomy Support Tech: Daryl Lees MD, Phone: [phone] [employer] Result Encounter on 07/08/2023 Component Date Value Ref Range Status BLOOD UREA NITROGEN 07/08/2023 22.0 (H) 7.0 - 18.0 mg/dL Final CREATININE 07/08/2023 1.01 0.55 - 1.02 mg/dL Final [facility]H EGFR-AF BRAZILIAN 07/08/2023 >60 >=60 Final [facility]H EGFR-NON AF BRAZILIAN 07/08/2023 53 (L) >=60 Final Visit Vitals [...] I discussed with the patient and/or their energy conservation representative, their fatigue issues. We discussed how [...] were answered. Overweight documented in this encounter [facility] 01-16-2023 Hospital Discharge instructions Patient Education [...] your health care provider. General instructions Take auvp-nur-odcyude and prescription medicines only as told by [...] provider. Document Revised: 06/05/2021 Document Reviewed: 06/05/2021 [employer] Patient Education 2022 [employer]. Follow Up Care 01/11/2023 11:08:02 With:NATHALIE JONES PA-C, URL Address: [address] [place] [phone] When:01/17/2024 [facility] 03-01-2022 Miscellaneous Notes Order faxed. Nataly Batista RN Received call from Yamilet at [facility] Scheduling stating pt is scheduled for mammogram there but order is for screening and pt is less than 5 years out from her breast cancer so they would like dx ria order. MOR: Order pending. Please review and sign if agreeable. Nataly Batista RN documented in this encounter [facility] 01-11-2022 Note HNO ID: [id number] Author: Pranav Bermudez MD Service: ? Author Type: Physician Type: Progress Notes Filed: 01/11/2022 8:32 PM Note Text: NAME: Yanet Adames [facility] NO.: [id number] DATE OF SERVICE: January 11, 2022 Some [...] that her diagnosis was found originally in [place] after which she decided to move up here permanently. Her is retired from [employer]. ? Some background history that are reviewed today reveals that she originally presented in consultation 02/06/18 with a new diagnosis of breast cancer. She was taken to lumpectomy 01/24/18 with the finding of a 2 cm sized ER and MI positive, HER 2 negative breast cancer. 0/5 [...] right axillary node excision and lumpectomy 2cm ER/MI positive 100%/80%, Her2 negative by FISH right [...] intact. Neck: Supp (more content not included)... [facility] 01-11-2022 History of Present illness Narrative Images from the original note were not included. NAME: Yanet Adames [facility] NO.: [id number] DATE OF SERVICE: January 11, 2022 Some elements in this clinic note that are critical to medical decision making have been carefully reviewed and included from a prior clinic note dated: July 13, 2021 Referring Provider: Dr. Homero Moess CC: Follow up for diagnosis ASSESSMENT: 1. [...] that her diagnosis was found originally in [place] after which she decided to move up here permanently. Her is retired from [employer]. Some background history that are reviewed today reveals that she originally presented in consultation 02/06/18 with a new diagnosis of breast cancer. She was taken to lumpectomy 01/24/18 with the finding of a 2 cm sized ER and MI positive, HER 2 negative breast cancer. 0/5 [...] right axillary node excision and lumpectomy 2cm ER/MI positive 100%/80%, Her2 negative by FISH right [...] 2 TABLETS DAILY TOLERATING SIDE EFFECTS STRONTIUM [id number] ORAL Take by mouth. MULTI-VITAMIN ORAL Refill(s) [...] GRAM VAGINALLY THREE TIMES WEEKLY thyroid, pork, (CROOK OPERATOR THYROID) 60 mg CROOK OPERATOR Thyroid 60 mg tablet TAKE 1 TABLET [...] by mouth once daily. calcium carbonate/vitamin D2 ([id number] ORAL) Take by mouth. Magnesium 250 mg [...] which included preparing to see the patient, plot-kf-fjmd patient care, completing clinical documentation, performing a medically appropriate examination, communicating results to the patient/family/caregiver and care coordination (not separately reported). Pranav Bermudez MD, CPE [place], [place] CC: Pranav Bermudez MD [address] [place] [address] [place] [address] Homero Moses MD [address] [facility] [address] documented in this encounter [facility] 07-13-2021 Note HNO ID: [id number] Author: Pranav Bermudez MD Service: ? Author Type: Physician Type: Progress Notes Filed: 07/13/2021 1:04 PM Note Text: NAME: Yanet Adames [facility] NO.: [id number] DATE OF SERVICE: July 13, 2021 Some [...] that her diagnosis was found originally in [place] after which she decided to move up here permanently. Her is retired from [employer]. ? Some background history that are reviewed today reveals that she originally presented in consultation 02/06/18 with a new diagnosis of breast cancer. She was taken to lumpectomy 01/24/18 with the finding of a 2 cm sized ER and MI positive, HER 2 negative breast cancer. 0/5 [...] right axillary node excision and lumpectomy 2cm ER/MI positive 100%/80%, Her2 negative by FISH right [...] Percocet [Oxycodone* Me (more content not included)... [facility] 04-28-2021 Note HNO ID: [id number] Author: LIAM Magana Service: Radiology Author Type: Selling Specialist Type: Progress Notes Filed: 04/28/2021 10:05 AM [...] LIAM Magana April 28, 2021 9:36 AM [facility] 04-28-2021 History of Present illness Narrative Radiology [...] 2021 9:36 AM documented in this encounter [facility] 04-14-2021 Note HNO ID: [id number] Author: Marcus Munoz MD Service: ? Author Type: Physician Type: Progress Notes Filed: 04/18/2021 8:42 AM Note Text: [facility] MULTIPLE SCLEROSIS NEW PATIENT EVALUATION/CONSULTATION Referral source: Shaida Barrera, SONAM [address] [place] [address] Also followed by: Patient Care Team: Homero [...] a past medical history of stage I ER/MI+ve HER-2neu -ve breast cancer s/p lumpectomy, radiation and adjuvant anastrazole, Hyppothyroidism, hypercholesterolemia, and osteoporosis. She presents today with a chief concern of abnormal visual starkey testing (perimetry). She was getting her routine eye examination when the captain room service/mammal keeper who noted an abnormality on her exam. [...] VAGINALLY THREE TIMES WEEKLY - thyroid, pork, (CROOK OPERATOR THYROID) 60 mg CROOK OPERATOR Thyroid 60 mg tablet TAKE 1 TABLET [...] mouth once daily (more content not included)... [facility] Evaluation + Plan note Future Appointments Appointment Date:01/11/2023 10:45:00 AM Scheduled Provider:Aldair TURCIOS MD Location:[facility] Appointment Type:URO Office Visit [facility] [place] Evaluation + Plan note Future Appointments Appointment Date:01/21/2024 02:30:00 PM Scheduled Provider:NATHALIE JONES PA-C Location:[facility] Appointment Type:URO Office Visit [facility] Evaluation + Plan note Future Appointments Appointment Date:03/24/2024 02:00:00 PM Scheduled Provider:NATHALIE JONES PA-C Location:[facility] Appointment Type:URO [facility] Diagnosis Age-related osteoporosis without current pathological fracture- Primary Senile osteoporosis Malignant neoplasm of lower-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, estrogen receptor positive (HCC) [facility] Malignant neoplasm of right breast in female, estrogen receptor positive, unspecified site of breast (HCC)- Primary Osteoporosis due to aromatase inhibitor Other osteoporosis [facility] Malignant neoplasm of lower-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, estrogen receptor positive (HCC)- Primary 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 Chronic fatigue Other malaise and fatigue Overweight Recurrent major depressive disorder, in partial remission (HCC) (CMS/HCC) [facility] Diagnosis Diplopia [facility] Diagnosis COVID-19- Primary documented in this encounter [facility]* Diagnosis 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 Rhinorrhea Other diseases of nasal cavity and sinuses Enlarged tonsils Hypertrophy of tonsils alone Myalgia, multiple sites Overweight documented in this encounter [facility] Narrative No data available for this section [facility] Hospital Discharge instructions No data available for this section [facility] Progress note No data available for this section [facility] Reason for referral (narrative)* Diagnostic Procedure Only (Routine) - Pending Review Specialty Diagnoses / Procedures Referred By Angélica t Referred To Contact [facility] Diagnoses Malignant neoplasm of lower-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, estrogen receptor positive (HCC) Procedures RIA DIAGNOSTIC BILAT DIAGNOSTIC MAMMOGRAPHY COMPUTER-AIDED DETCJ Sindi Quevedo, PATRICIO.[address] [place] [address] [facility] [address] [place] [address] Referral ID Status Reason Start Date Expiration Date Visits Requested Visits Authorized [id number] Pending Review Auto-Generat ed Referral 03/01/2022 03/31/20[address] [facility] Diagnostic Procedure Only (Routine) - Closed Specialty Diagnoses / Procedures Referred By Contac t Referred To Contact [facility] Diagnoses Diplopia Procedures MRI BRAIN WO/W IVCON MRI BRAIN Marcus Harrison MD [address] [place] [address] [place] [address] Referral ID Status Reason Start Date Expiration Date Visits Re quested Visits Authorized [id number] Closed 04/28/2021 08/01/2021 [address] [facility] Summary Purpose Family History No Family History Records FoundNo Family History Records FoundNo Family History Records Found No data available for this section No data available for this section No Family History Records Found No data available for this section No Family History Records Found Advance Directives Documents on File Type Date Recorded Patient Objective C Developer Expl anation Advance Directives and Living Will 05/25/2019 1990-08-27 Power of Bilingual Recruiter Documents on File Type Date Recorded Patient Objective C Developer Expl anation Advance Directives and Living Will 05/25/2019 1990-08-27 Power of Bilingual Recruiter Medications Administered Section Inactive Administered Medications - [...] and content) DATE CREATED AUTHOR 03/20/2018 [facility] DATE CREATED AUTHOR AUTHOR'S ORGANIZ ATION 03/02/2022 [facility] DATE CREATED AUTHOR AUTHOR'S ORGANIZ ATION 02/13/2023 [facility] DATE CREATED AUTHOR AUTHOR'S ORGANIZ ATION 05/10/[address] [facility] DATE CREATED AUTHOR AUTHOR'S ORGANIZ ATION 07/16/2024 [facility] dicct Specialists EPIC Source Comments (unrecognize d section and content) In the event this informatio n is protected by the Federal Confidentiality of Alcohol and Drug Abuse Patient Records regulations: The Federal rules restrict any use of the information to criminally investigate or prosecute any alcohol or drug abuse patient.[facility] event this information is protected by the Federal Confidentiality of Alcohol and Drug Abuse Patient Records regulations: The Federal rules restrict any use of the information to criminally investigate or prosecute any alcohol or drug abuse patient.[facility] Center[facility] the event this information is protected by the Federal Confidentiality of Alcohol and Drug Abuse Patient Records regulations: The Federal rules restrict any use of the information to criminally investigate or prosecute any alcohol or drug abuse patient.[facility] Center[facility] the event this information is protected by the Federal Confidentiality of Alcohol and Drug Abuse Patient Records regulations: The Federal rules restrict any use of the information to criminally investigate or prosecute any alcohol or drug abuse patient.[facility] Reason for Visit (unrecogniz ed section and content) Specialty Diagnoses / Procedures Referred By Contac t Referred To Contact Diagnoses Malignant neoplasm of lower-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, estrogen receptor positive (HCC) Age-related osteoporosis without current pathological fracture Procedures DENOSUMAB INJECTION Pranav Bermudez MD [address] [address] Jefe Treat Francisco [address] [place] [place] [address] Referral ID Status Reason Start Date Expiration Date V isits Requested Visits Authorized [id number] Waiting for Response 07/13/2021 01/15/2022 99 99 Reason Comments Breast Cancer Reason Comments Orders Reason Comments Memory Loss Reason Comments Radiology MRI Specialty Diagnoses / Procedures Referred By Contac t Referred To Contact MR IMAGING Diagnoses Diplopia Procedures MRI BRAIN WO/W IVCON MRI BRAIN MARTITAO Marcus Munoz MD [address] [place] [address] Mr Imaging [facility] Referral ID Status Reason Start Date Expiration Date Visits Re quested Visits Authorized [id number] Closed 04/28/2021 08/01/2021 1 1 Reason Comments Covid Reason Comments Follow-up Care Teams (unrecognized sec tion and content) Perianesthesia Manager Relationship Specialty Start Date End Date Homero Moses [address] [facility] [place] [place] [address] PCP - General Family Practice 05/09/15 Shadia Barrera, DO [address] [place] [address] Referring Optometry 04/10/21 Perianesthesia Manager Relationship Specialty Start Date End Date Homero Moses [address] [facility] [place] [address] (Fax) PCP - General Family Practice 05/09/15 Shadia Barrera W, DO [address] [place] [address] Referring Optometry 04/10/21 Perianesthesia Manager Relationship Specialty Start Date End Date Homero Moses MD [address] [facility] [place] [address] (Fax) PCP - General Family Practice 05/09/15 Shadia Barrera W, DO [address] [place] [address] Referring Optometry 04/10/21 Perianesthesia Manager Relationship Specialty Start Date End Date Homero Moses MD [address] [facility] [place] [address] (Fax) PCP - Devoted 09/30/20 Homero Moses MD [address] [place] [address] (Fax) PCP - General Family Medicine 02/11/23 Perianesthesia Manager Relationship Specialty Start Date End Date Homero Moses MD [address] [facility] [place] [address] (Fax) PCP - Devoted 09/30/20 Homero Moses MD [address] [facility] [place] [address] (Fax) PCP - General Family Medicine 02/11/23 Perianesthesia Manager Relationship Specialty Start Date End Date Homero Moses MD [address] [place] [address] (Fax) PCP - Devoted 09/30/20 Homero Moses MD [address] [place] [address] (Fax) PCP - General Family Medicine 02/11/23 Perianesthesia Manager Relationship Specialty Start Date End Date Homero Moses MD [address] [place] [address] (Fax) PCP - General Family Medicine 05/09/15 Shadia Barrera OD [address] [place] [address] Referring Optometry 04/10/21 Perianesthesia Manager Relationship Specialty Start Date End Date Homero Moses MD [address] [place] [address] (Fax) PCP - Devoted 09/30/20 Homero Moses MD [address] [place] [address] (Fax) PCP - General Family Medicine 02/11/23 Perianesthesia Manager Relationship Specialty Start Date End Date Homero Moses MD [address] [place] [address] (Fax) PCP - Devoted 09/30/20 Homero Moses MD [address] [place] [address] (Fax) PCP - General Family Medicine 02/11/23 Perianesthesia Manager Relationship Specialty Start Date End Date Homero Moses MD [address] [place] [address] PCP - Devoted 09/30/20 Homero Moses MD [address] [place] [address] PCP - General Family Medicine 02/11/23 FOR [...] BE BASED ON THE PRIMARY CLINICAL RECORDS. [facility] [employer] [facility]. provides no warranty or guarantee of the accuracy or completeness of information in this document.
[2024-07-22 15:15] LABS: Hematocrit 36.8 % (36.0-48.0); Hemoglobin 12.4 g/dL (12.0-16.0); Immature Granulocytes Abs Auto 0.02 10^3/uL (0.00-0.03); Immature Granulocytes Pct Auto 0.3 % (0.0-0.5); Lymphocytes Absolute Auto 0.9 10^3/uL (1.2-3.8); Lymphocytes Percent Auto 14.7 % (20.5-60.0); Mean Corpuscular HGB Conc 33.7 g/dL (29.9-35.2); Mean Corpuscular Hemoglobin 31.4 pg (26.7-34.0); Mean Corpuscular Volume 93.2 fL (81.0-99.0); Mean Platelet Volume 10.4 fL (9.5-13.5); Monocytes Absolute Auto 0.1 10^3/uL (0.3-0.8); Platelet Count 249 10^3/uL (150-450); Red Blood Count 3.95 10^6/uL (4.20-5.40); Red Cell Distribution Width 14.8 % (11.0-15.0)
[2024-07-22 15:29] LABS: INR 0.97; Prothrombin Time 10.3 sec (9.0-11.6)
[2024-07-22 15:32] LABS: Alanine Aminotransferase 30 U/L (14-59); Albumin Level 3.8 g/dL (3.4-5.0); Alkaline Phosphatase 69 U/L (46-116); Anion Gap 17.4; Aspartate Amino Transferase 14 U/L (15-37); BUN Creatinine Ratio 27.6; Bilirubin Total 0.6 mg/dL (0.2-1.0); Calcium 9.2 mg/dL (8.5-10.1); Carbon Dioxide 21.7 mmol/L (21.0-32.0); Chloride 104 mmol/L (98-107); Estimated GFR (African America >60 (>=60 mL/min/1.73m^2); Estimated GFR (Non-African Ame 54 (>=60 mL/min/1.73m^2); Globulin 3.8 g/dL; Glucose 140 mg/dL (74-106); Potassium 4.1 mmol/L (3.5-5.1); Sodium 139 mmol/L (136-145); Total Protein 7.6 g/dL (6.4-8.2); Troponin I High Sensitivity 6.4 pg/mL (4.0-51.3)
[2024-07-22 16:15] LABS: Color Urine LT YELLOW (YELLOW)
[2024-07-22 16:16] LABS: Bilirubin Urine NEGATIVE (NEGATIVE); Blood Urine NEGATIVE (NEGATIVE); Clarity Urine CLEAR (CLEAR); Glucose Urine UA NEGATIVE (NEGATIVE); Ketones Urine NEGATIVE (NEGATIVE); Leukocyte Esterase Urine NEGATIVE (NEGATIVE); Nitrite Urine NEGATIVE (NEGATIVE); Protein Urine NEGATIVE (NEG/TRACE); Specific Gravity Urine <=1.005 (1.005-1.025); Urine Microscopic Indicated NO; Urobilinogen Urine 0.2 EU/dL (0.2-1.0); pH Urine 6.5 (5.0-9.0)
[2024-07-22] MEDS: HYDRALAZINE HCL 20 MG/ML VIAL 10 MG IVP (16:41)
== END 2024-07-22 17:07 | disposition home or self-care (01) ==
PROVIDERS: Emergency Provider Emergency Medicine; PCP Family Medicine
DX: I10 Essential (primary) hypertension (principal); M79.604 Pain in right leg; F03.90 Unspecified dementia, unspecified severity, without behavioral disturbance, psychotic disturbance, mood disturbance, and anxiety; Z91.81 History of falling
CPT/HCPCS: 36415; 70450; 72192; 80053; 81003; 84484; 85025; 85610; 93005; 96374; 99285; J0360

== ENCOUNTER 2024-08-04 15:08 | Outpatient (OUT) | payer OTHER, SELFPAY ==
--- NOTE | 2024-08-04 15:13 | XR_ITS ---
[facility] [place] [address] Patient Name: GARY ADAMES MRN: [id number] date: 1940 Sex: F Assigned Patient Location: [facility] Current Patient Location: Accession/Order Number: [id number] Exam Date: 08/04/2024 15:18 Report Date: 08/05/2024 12:55 At the request of: MAYURI MOSES Procedure: XR lumbar spine min 4V EXAMINATION: XR lumbar spine min 4V HISTORY: Fall, Lumbosacral Radiculopathy, Right Sided Sciatica COMPARISON: No relevant comparison available. FINDINGS: BONES: Mild dextrocurvature centered at L3. Anterior wedging L1, 15%, age indeterminate. Mild spondylosis. Moderate facet osteoarthropathy DISC SPACES: Moderate diffuse degenerative change PARASPINOUS: Negative. No paraspinous abnormality is seen. OTHER: Negative. XR/XR lumbar spine min 4V IMPRESSION: 15% anterior wedge compression fracture of L1, age indeterminate Moderate degenerative change Electronically authenticated by: ERICK HOLDEN Date: 08/05/2024 12:55
== END 2024-08-04 15:09 | disposition home or self-care (01) ==
LOC: RAD 15:09
PROVIDERS: PCP Family Medicine; Visit Provider Family Medicine
DX: M54.17 Radiculopathy, lumbosacral region (principal); M54.31 Sciatica, right side; W19.XXXS Unspecified fall, sequela; M48.56XA Collapsed vertebra, not elsewhere classified, lumbar region, initial encounter for fracture
CPT/HCPCS: 72110

== ENCOUNTER 2024-09-07 08:32 | Outpatient (OUT) | payer OTHER, SELFPAY ==
--- NOTE | 2024-09-07 08:37 | MM_ITS ---
Patient Name: GARY ADAMES MR#: [id number] : 1940 Exam Date: 09/07/2024 Ordering Doctor: DR MAYURI MOSES . RADIOLOGY REPORT PROCEDURE: MM TOMOSYNTHESIS SCREENING BI COMPARISON: MM TOMOSYNTHESIS SCREENING BI, 08/09/2023. MG MAMM SCREEN 3D RUBEN CAD, 07/04/2022. MG MAMM RUBEN DIAG W CAD, 12/10/2019. MAMMO RUBEN SCREEN, 07/08/2008. INDICATIONS: Screening Calculator Name NCI Breast Cancer Risk Assessment Tool 5 Year Breast Cancer Risk n/a% Lifetime Breast Cancer Risk n/a% Personal Breast Cancer Yes, Right, 76 Personal Ovarian Cancer No Treatments lumpectomy and radiation treatment Family Cancers Mother with colon cancer at age 70. LOCATION: [facility] BREAST COMPOSITION: The breasts are heterogeneously dense,which may obscure small masses. FINDINGS: DIAGNOSTIC CATEGORY 2--BENIGN FINDING: RIGHT BREAST: No significant suspicious finding. Stable postsurgical changes/scarring. No significant change has occurred. LEFT BREAST: No significant suspicious finding. No significant change has occurred. RECOMMENDATIONS: ROUTINE MAMMOGRAM AND CLINICAL EVALUATION IN 12 MONTHS. PLEASE NOTE: A NORMAL MAMMOGRAM DOES NOT EXCLUDE THE POSSIBILITY OF BREAST CANCER. A CLINICALLY SUSPICIOUS PALPABLE LUMP SHOULD BE BIOPSIED. Dictated by: Rory Velásquez M.D. on 09/07/2024 at 09:26 Approved by: Rory Velásquez M.D. on 09/07/2024 at 09:30
== END 2024-09-07 08:33 | disposition home or self-care (01) ==
LOC: MAMMO 08:32
PROVIDERS: PCP Family Medicine; Visit Provider Family Medicine
DX: Z12.31 Encounter for screening mammogram for malignant neoplasm of breast (principal); Z80.3 Family history of malignant neoplasm of breast
CPT/HCPCS: 77063; 77067

== ENCOUNTER 2025-01-29 11:10 | Outpatient (OUT) | payer OTHER, SELFPAY ==
[2025-01-29 12:00] LABS: Alanine Aminotransferase 19 U/L (14-59); Albumin Globulin Ratio 0.9; Albumin Level 3.4 g/dL (3.4-5.0); Alkaline Phosphatase 53 U/L (46-116); Anion Gap 9.5; Aspartate Amino Transferase 10 U/L (15-37); BUN Creatinine Ratio 25.9; Bilirubin Total 0.3 mg/dL (0.2-1.0); Calcium 9.2 mg/dL (8.5-10.1); Carbon Dioxide 32.1 mmol/L (21.0-32.0); Chloride 105 mmol/L (98-107); Chol HDL Ratio 3.2; Cholesterol 324 mg/dL (<=200); Estimated GFR (African America >60 (>=60 mL/min/1.73m^2); Estimated GFR (Non-African Ame >60 (>=60 mL/min/1.73m^2); Globulin 3.6 g/dL; Glucose 93 mg/dL (74-106); HDL Cholesterol 101 mg/dL (40-60); Potassium 4.6 mmol/L (3.5-5.1); Sodium 142 mmol/L (136-145); Triglycerides 56 mg/dL (<=150); VLDL CHOLESTEROL 11.2 mg/dL
== END 2025-01-29 11:11 | disposition home or self-care (01) ==
LOC: LAB 11:13
PROVIDERS: PCP Family Medicine; Visit Provider Family Medicine
DX: E78.2 Mixed hyperlipidemia (principal); I10 Essential (primary) hypertension; Z13.1 Encounter for screening for diabetes mellitus
CPT/HCPCS: 36415; 80053; 80061

== ENCOUNTER 2025-04-22 16:58 | Outpatient (OUT) | payer OTHER, SELFPAY ==
--- OUTSIDE RECORDS SUMMARY | 2025-04-13 12:00 | XMS_ITS | Encounter Summary ---
Author Organization [facility] Address [address] [facility] [place] [address] Care Team Providers Care Network Intelligence Analyst Name Role Phone Homero Mckeon MD Unavailable [phone] Homero Mckeon MD Primary Care Provider + [phone] Encounter Details Date Type Department Care Team (Latest Contact Info) Description 04/13/2025 12:00 PM EDT Ancillary Procedure [facility] [address] [address] [place] [address] Full incontinence of feces Social History Tobacco Use Types Packs/Day Years Used Date Smoking Tobacco: Never Smokeless Tobacco: Never Alcohol Use Standard Drinks/Week Comments Yes 2 (1 standard drink = 0.6 oz pur e alcohol) Caffeine intake: occasionally B1300 Health Literacy Answer Date Recor ded How often do you need to hav e someone help you when you read instructions, pamphlets, or other written material from your doctor or pharmacy? Never 05/01/2024 Social Connection and Isolat ion Panel [NHANES] Answer Date Recorded In a typical week, how many times do you talk on the phone with family, friends, or neighbors? More than three times a week 05/01/2024 How often do you get togethe r with friends or relatives? Once a week 05/01/2024 How often do you attend chur ch or scientologist services? More than 4 times per year 05/01/2024 Active Member of Clubs or Organizations Not on f ile 05/01/2024 How often do you attend meet ings of the clubs or organizations you belong to? More than 4 times per year 05/01/2024 Are you , , di vorced, , never , or living with a partner? 05/01/2024 AUDIT-C Answer Date Recorded Q1: How often do you have a drink containing alc ohol? Monthly or less 05/01/2024 Q2: How many drinks containi ng alcohol do you have on a typical day when you are drinking? 1 or 2 05/01/2024 Q3: How often do you have si x or more drinks on one occasion? Never 05/01/2024 Overall Financial Resource Strain (CARDIA) Answe r Date Recorded How hard is it for you to pa y for the very basics like food, housing, medical care, and heating? Not hard at all 05/01/2024 PHQ-2 Answer Date Recorded Patient Health Questionnaire-2 Score 0 03/24/2025 Exercise Vital Sign Answer Date Recorde d Days of Exercise per Week Not on file 2023 On average, how many minutes do you engage in exercise at this level? 20 min 05/01/2024 Hunger Vital Sign Answer Date Recorded Within the past 12 months, y ou worried that your food would run out before you got the money to buy more. Never true 05/01/20 24 Within the past 12 months, t he food you bought just didn't last and you didn't have money to get more. Never true 05/01/2024 PRAPARE - Transportation Answer Date Re corded In the past 12 months, has l ack of transportation kept you from medical appointments or from getting medications? No 10/2023 In the past 12 months, has l ack of transportation kept you from meetings, work, or from getting things needed for daily living? No 05/01/2024 Housing Stability Vital Sign Answer Neftali e Recorded In the last 12 months, was t here a time when you were not able to pay the mortgage or rent on time? No 05/01/2024 Number of Times Moved in the Last Year Not on fi le 05/01/2024 At any time in the past 12 m [facility], were you homeless or living in a mcc (including now)? No 05/01/2024 Comments No Sex and Gender Information Value Date Recorded Sex Assigned at Not on file Legal Sex Female 8:34 PM EDT Gender Identity Not on file Sexual Orientation Not on file documented as of this encounter Plan of Treatment Upcoming Encounters Date Type Department Care Team (Late st Contact Info) Description 07/28/2025 11:30 AM EDT Office Visit [facility] [address] [place] [address] Homero Mckeon MD [address] [place] [address] 09/14/2025 11:30 AM EST Office Visit [facility] [address] [place] [address] Homero Mckeon MD [address] [place] [address] documented as of this encounter Goals Goal Patient Goal Type Associated Problems Recent Progress Patient-Stated? Author Help patient manage antidepressant medication Care Plan Patient on antidepressant monitoring plan No Michelle Kellen, Baseline PHQ-9 Care Plan Baseline PHQ-9 No Michelle December, documented as of this encounter Procedures Procedure Name Priority Date/Time Associated Diagnosis Comments XR ABDOMEN 2 VIEW Routine 04/13/2025 12: 01 PM EDT Full incontinence of feces documented in this encounter Results * XR ABDOMEN 2 VIEW (04/13/2025 12:01 PM EDT) Anatomical Region Laterality Modality Abdomen Radiographic Sandra ging 04/13/2025 12:4 4 PM EDT Impressions 04/13/2025 12:46 PM EDT Nonobstructive bowel gas pattern. Stool throughout the colon may represent constipation. ELECTRONICALLY SIGNED BY: Hugo Cornejo DO Narrative 04/13/2025 12:46 PM EDT EXAMINATION: XR ABDOMEN 2 VIEW HISTORY: new incontinance of stool TECHNIQUE: Frontal view of the abdomen and pelvis obtained COMPARISON: None available FINDINGS: No calcifications identified over the bilateral renal shadows or expected course of the ureters. Nonobstructive bowel gas pattern. Stool throughout the colon may represent constipation. No evidence of free air. Degenerative changes of the spine and both hips no acute osseous abnormality. Procedure Note Hugo Cornejo DO - 04/13/2025 EXAMINATION: XR ABDOMEN 2 VIEW HISTORY: new incontinance of stool TECHNIQUE: Frontal view of the abdomen and pelvis obtained COMPARISON: None available FINDINGS: No calcifications identified over the bilateral renal shadows or expectedcourse of the ureters. Nonobstructive bowel gas pattern. Stool throughoutthe colon may represent constipation. No evidence of free air.Degenerative changes of the spine and both hips no acute osseousabnormality. IMPRESSION: Nonobstructive bowel gas pattern. Stool throughout the colon may represent constipation. ELECTRONICALLY SIGNED BY: Hugo Cornejo DO Homero Mckeon MD IMG XR PROCEDURES Final Resu lt documented in this encounter Visit Diagnoses Diagnosis Full incontinence of feces documented in this encounter Additional Health Concerns Active Problems Noted Date Diagnosed Date Patient on antidepressant monitoring plan 2023 Baseline PHQ-9 02/03/2024 documented as of this encounter Care Teams Network Intelligence Analyst Relationship Specialty Start Date End Date Homero Mckeon MD [address] [address] PCP - Devoted 09/30/20 Homero Mckeon MD [address] [facility] 100 [place] [address] PCP - General Family Medicine 02/11/23 documented as of this encounter
--- OUTSIDE RECORDS SUMMARY | 2025-04-22 12:32 | XMS_ITS | Encounter Summary ---
Author Organization [facility] Address [address] [place] [address] Care Team Providers Care Rotary Drier Operator Name Role Phone Homero Mckeon MD Unavailable [phone] Homero Mckeon MD Primary Care Provider + [phone] Encounter Details Date Type Department Care Team (Late Contact Info) Description 11/11/2023 Orders Only [facility] [address] [facility] [address] Homero Mckeon MD [address] [address] (Fax) Social History Tobacco Use Types Packs/Day Years Used Date Smoking Tobacco: Never Smokeless Tobacco: Never Alcohol Use Standard Drinks/Week Comments Yes 2 (1 standard drink = 0.6 oz pur e alcohol) Caffeine intake: occasionally PHQ-2 Answer Date Recorded Patient Health Questionnaire-2 Score 0 04/04/2023 Comments No Sex and Gender Information Value [...] FM [address] [place] [address] Homero Mckeon MD [address] [facility] 100 [place] [address] (Fax) 09/14/2025 11:30 AM EST Office Visit [facility] [address] [place] [address] Homero Mckeon MD [address] [facility] 100 [place] [address] documented as of this encounter Visit Diagnoses Not on filedocumented in this encounter Care Teams Rotary Drier Operator Relationship Specialty Start Date End Date Homero Mckeon MD [address] [facility] 100 [place] [address] PCP - Devoted 09/30/20 Homero Mckeon MD [address] [facility] [address] [place] [address] PCP - General Family Medicine 02/11/23 documented as of this encounter
--- OUTSIDE RECORDS SUMMARY | 2025-04-22 12:32 | XMS_ITS | Encounter Summary ---
Author Organization [facility] Address [address] [place] [address] Care Team Providers Care English Division Chair Name Role Phone Homero Mckeon MD Unavailable [phone] Homero Mckeon MD Primary Care Provider [phone] Reason for Visit * Reason Comments Med Refill Encounter Details Date Type Department Care Team ([facility] Contact Info) Description 06/22/2023 Refill [facility] [address] [place] [address] Homero Mckeon MD [address] [address] (Fax) Mixed hyperlipidemia ; Major depressive disorder, recurrent, in partial remission Social History Tobacco Use Types Packs/Day Years Used Date Smoking Tobacco: Never Alcohol Use Standard Drinks/Week Comments [...] Upcoming Encounters Date Type Department Care Team ([facility] Contact Info) Description 07/28/2025 11:30 AM EDT Office Visit [facility] 100 [address] [facility] 100 [place] [address] Homero Mckeon MD [address] [facility] 100 [place] [address] (Fax) 09/14/2025 11:30 AM EST Office Visit [facility] [address] [place] [address] Homero Mckeon MD [address] [place] [address] documented as of this encounter Visit Diagnoses Diagnosis Mixed hyperlipidemia Mixed hyperlipidemia Major depressive disorder, recurrent, in partial remission documented in this encounter Care Teams English Division Chair Relationship Specialty Start Date End Date Homero Mckeon MD [address] [facility] [address] [place] [address] PCP - Devoted 09/30/20 Homero Mckeon MD [address] [facility] [address] [place] [address] PCP - General Family Medicine 02/11/23 documented as of this encounter
--- OUTSIDE RECORDS SUMMARY | 2025-04-22 12:32 | XMS_ITS | Encounter Summary ---
Author Organization [facility] Address [address] [place] [address] Care Team Providers Care Airway Traffic Controller Name Role Phone Homero Mckeon MD Unavailable [phone] Homero Mckeon MD Primary Care Provider + [phone] Encounter Details Date Type Department Care Team (Late Contact Info) Description 10/10/2023 Abstract [facility] [address] [facility] [address] Uriel Maloney, DO [address] [place] [id number] Social History Tobacco Use Types Packs/Day Years [...] FM [address] [place] [address] Homero Mckeon MD [address] [place] [address] (Fax) 09/14/2025 11:30 AM EST Office Visit [facility] [address] [facility] [address] [place] [address] Homero Mckeon MD [address] [facility] [address] [place] [address] documented as of this encounter Visit Diagnoses Not on filedocumented in this encounter Care Teams Airway Traffic Controller Relationship Specialty Start Date End Date Homero Mckeon MD [address] [facility] [address] [place] [address] PCP - Devoted 09/30/20 Homero Mckeon MD [address] [facility] [address] [place] [address] PCP - General Family Medicine 02/11/23 documented as of this encounter
--- OUTSIDE RECORDS SUMMARY | 2025-04-22 12:32 | XMS_ITS | Encounter Summary ---
Author Organization [facility] Address [address] [place] [address] Care Team Providers Care Analytics Associate Name Role Phone Homero Mckeon MD Unavailable [phone] Homero Mckeon MD Primary Care Provider + [phone] Encounter Details Date Type Department Care Team (Late Contact Info) Description 08/07/2023 Abstract [facility] [address] [facility] [place] [address] Lesli Brown NP Social History Tobacco Use Types Packs/Day Years [...] FM [address] [place] [address] Homero Mckeon MD [address] [place] [address] (Fax) 09/14/2025 11:30 AM EST Office Visit [facility] [address] [place] [address] Homero Mckeon MD [address] [address] documented as of this encounter Visit Diagnoses Not on filedocumented in this encounter Care Teams Analytics Associate Relationship Specialty Start Date End Date Homero Mckeon MD [address] [address] PCP - Devoted 09/30/20 Homero Mckeon MD [address] [address] PCP - General Family Medicine 02/11/23 documented as of this encounter
--- OUTSIDE RECORDS SUMMARY | 2025-04-22 12:32 | XMS_ITS | Encounter Summary ---
Author Organization [facility] Address [address] [place] [address] Care Team Providers Care Pediatric Audiologist Name Role Phone Homero Moses MD Unavailable [phone] Homero Moses MD Primary Care Provider + [phone] Encounter Details Date Type Department Care Team (Late Contact Info) Description 07/08/2023 Clinisync Result Encounter [facility] External Department Unsolicited Provider, Generic External Data Social History Tobacco Use Types Packs/Day Years [...] Encounters Date Type Department Care Team (Late Contact Info) Description 07/28/2025 11:30 AM EDT Office Visit [facility] [address] [place] [address] Homero Moses MD [address] [place] [address] (Fax) 09/14/2025 11:30 AM EST Office Visit [facility] [address] [place] [address] Homero Moses MD [address] [place] [address] (work) documented as of this encounter Procedures Procedure Name Priority Date/Time Associated Diagnosis Comments MRI HEAD/BRAIN WO/W CONTR 07/08/2023 8:19 PM EDT documented in this encounter Results * MRI HEAD/BRAIN WO/W CONTR (07/08/2023 8:19 PM EDT) Anatomical Region Laterality Modality Radiographic Sandra ging 07/08/2023 8:19 PM EDT Narrative 07/08/2023 8:19 [place] [address] Magnetic Resonance Report Signed Patient: GARY HAYNES MR#: [id number] : 1940 Acct:[id number] Age/Sex: 82 / F ADM Date: 07/08/23 Loc: LAB Attending Dr: NICHOLE FLAHERTY Ordering Physician: NICHOLE FLAHERTY Date of Service: 07/08/23 Procedure(s): MR head/brain wo/w con Accession Number(s): [id number] cc: NICHOLE FLAHERTY ; HOMERO MOSES [place] [id number] Patient Name: GARY HAYNES MRN: [id number] date: 1940 Sex: F Assigned Patient Location: LAB Current Patient Location: LAB Accession/Order Number: [id number] Exam Date: 07/08/2023 13:48 Report Date: 07/08/2023 20:19 At the request of: NICHOLE FLAHERTY Procedure: MR head/brain wo/w con EXAM: MR head/brain wo/w con. HISTORY: Alzheimer's Disease Late Onset G30.1. COMPARISON: None. TECHNIQUE: Multiplanar, multisequence MR imaging of the head was performed prior to and following the administration of 12 mL Dotarem contrast intravenously. FINDINGS: No restricted diffusion. No acute hemorrhage, mass effect, midline shift or extra-axial fluid collection. There is moderate diffuse cerebral atrophy with concordant prominence of the ventricles. Moderate to severe patchy confluent areas of abnormal increased T2 and FLAIR signal are seen within the gaby, subcortical white matter and periventricular white matter. Expected flow voids are noted within the intracranial internal carotid, vertebral and basilar arteries. The cerebellopontine angles and internal auditory canals are unremarkable. The pituitary gland and midline structures are unremarkable. Bone marrow signal is within normal limits. There is artifact from anterior fixation hardware at the partially visualized C3 and C4 levels. The orbits and globes are unremarkable. There has been bilateral cataract eye surgery. Expected signal voids are seen within the paranasal sinuses and mastoid air cells. No abnormal enhancement. MR/MR head/brain wo/w con IMPRESSION: 1. Moderate to severe nonspecific FLAIR signal abnormalities of the gaby and supratentorial white matter, compatible with chronic small vessel ischemic changes. 2. Moderate diffuse cerebral atrophy with concordant prominence of the ventricles. 3. No acute infarct, mass effect or abnormal enhancement. Electronically authenticated by: ERICK ZUNIGA Date: 07/08/2023 20:19 Dictated By: Erick Zuniga M.D. Signed By: 07/08/232020 DD/ 18 TD/TT: Rn Digestive: Procedure Note Radiology, Radiologist, MD - 07/10/2023 [place] [address] Magnetic Resonance Report Signed Patient: GAYR HAYNES KMR#: [id number] : 1940cct:[id number] Age/Sex: 82 / FADM Date: 07/08/23 Loc: LAB Attending Dr: NICHOLE FLAHERTY Ordering Physician: NICHOLE FLAHERTY Date of Service: 07/08/23 Procedure(s): MR head/brain wo/w con Accession Number(s): [id number] cc: NICHOLE FLAHERTY [place] The [place] [id number] Patient Name: GARY HAYNES MRN: [id number] date: 1940 Sex: F Assigned Patient Location: LAB Current Patient Location: LAB Accession/Order Number: [id number] Exam Date: 07/08/2023 13:48 Report Date: 07/08/2023 20:19 At the request of: NICHOLE FLAHERTY Procedure: MR head/brain wo/w con EXAM: MR head/brain wo/w con. HISTORY: Alzheimer's Disease Late Onset G30.1. COMPARISON: None. TECHNIQUE: Multiplanar, multisequence MR imaging of the head was performed prior to and following the administration of 12 mL Dotarem contrast intravenously. FINDINGS: No restricted diffusion. No acute hemorrhage, mass effect,midline shift or extra-axial fluid collection. There is moderate diffuse cerebral atrophy with concordant prominence ofthe ventricles. Moderate to severe patchy confluent areas of abnormalincreased T2 and FLAIR signal are seen within the gaby, subcortical white matter and periventricular white matter. Expected flow voids are noted within the intracranial internal carotid, vertebral and basilar arteries. The cerebellopontine angles and internal auditory canals are unremarkable. The pituitary gland and midlinestructures are unremarkable. Bone marrow signal is within normal limits. There is artifact from anterior fixation hardware at the partially visualized C3 and B0iginpd. The orbits and globes are unremarkable. There has been bilateral cataracteye surgery. Expected signal voids are seen within the paranasal sinuses and mastoid air cells. No abnormal enhancement. MR/MR head/brain wo/w con IMPRESSION: 1. Moderate to severe nonspecific FLAIR signal abnormalities of the ponsand supratentorial white matter, compatible with chronic small vessel ischemic changes. 2. Moderate diffuse cerebral atrophy with concordant prominence of the ventricles. 3. No acute infarct, mass effect or abnormal enhancement. Electronically authenticated by: ERICK ZUNIGA Date: 07/08/2023 20:19 Dictated By: Erick Zuniga M.D. Signed By:07/08/232020 DD/ 18 TD/TT: Rn Digestive: us Generic External Data Provider IMG XR PROCEDURES Final Result documented in this encounter Visit Diagnoses Not on filedocumented in this encounter Care Teams Pediatric Audiologist Relationship Specialty Start Date End Date Homero Moses MD [address] [address] (Fax) PCP - Devoted 09/30/20 Homero Moses MD [address] [address] PCP - General Family Medicine 02/11/23 documented as of this encounter
--- OUTSIDE RECORDS SUMMARY | 2025-04-22 12:32 | XMS_ITS | Encounter Summary ---
Author Organization [facility] Address [address] [place] [address] Care Team Providers Care Finnish Rubber Name Role Phone Homero Mckeon MD Unavailable [phone] Homero Mckeon MD Primary Care Provider + [phone] Reason for Visit * Reason Comments Med Refill Encounter Details Date Type Department Care Team (Late st Contact Info) Description 04/14/2025 Refill [facility] [address] [place] [address] Homero Mckeon MD [address] [place] [address] (Fax) Cerebral atrophy Social History Tobacco Use Types Packs/Day Years [...] often do you attend chur ch or bahai services? More than 4 times per year [...] any time in the past 12 m [facility], were you homeless or living in a group home (including now)? No 05/01/2024 Comments No Sex [...] [address] [place] [address] Homero Mckeon MD [address] [place] [address] (Fax) 09/14/2025 11:30 AM EST Office Visit [facility] [address] [place] [address] Homero Mckeon MD [address] [place] [address] (Fax) documented as of this encounter Goals Goal Patient Goal Type Associated Problems Recent Progress Patient-Stated? Author Help patient manage antidepressant medication Care Plan Patient on antidepressant monitoring plan No Michelle Kellen, [place] Baseline PHQ-9 Care Plan Baseline PHQ-9 No Michelle Kellen, [place] documented as of this encounter Visit Diagnoses Diagnosis Cerebral atrophy Unspecified cerebral degeneration documented in this encounter Additional Health Concerns Active Problems Noted Date Diagnosed Date Patient on antidepressant monitoring plan 2023 Baseline PHQ-9 02/03/2024 documented as of this encounter Care Teams Finnish Rubber Relationship Specialty Start Date End Date Homero Mckeon MD [address] [place] [address] (Fax) PCP - Devoted 09/30/20 Homero Mckeon MD [address] [place] [address] (Fax) PCP - General Family Medicine 02/11/23 documented as of this encounter
--- OUTSIDE RECORDS SUMMARY | 2025-04-22 12:32 | XMS_ITS | Encounter Summary ---
Author Organization [facility] Address [address] [place] [address] Care Team Providers Care Element Burner Name Role Phone Homero Moses MD Unavailable [phone] Homero Moses MD Primary Care Provider + [phone] Encounter Details Date Type Department Care Team [...] FM [address] [place] [address] Homero Moses MD [address] [place] [address] (Fax) 09/14/2025 11:30 AM EST Office Visit [facility] [address] [place] [address] Homero Moses MD [address] [place] [address] (work) documented as of this encounter Procedures Procedure Name Priority Date/Time Associated Diagnosis Comments XR CERVICAL SPINE 2-3V 07/08/2023 2:01 PM EDT documented in this encounter Results * XR CERVICAL SPINE 2-3V (07/08/2023 2:01 PM EDT) Anatomical Region Laterality Modality Other 07/08/2023 2:01 PM EDT Narrative 07/08/2023 2:01 [place] [address] XRay Report Signed Patient: GARY HAYNES MR#: [id number] : 1940 Acct:[id number] Age/Sex: 82 / F ADM Date: 07/08/23 Loc: LAB Attending Dr: NICHOLE FLAHERTY Ordering Physician: NICHOLE FLAHERTY Date of Service: 07/08/23 Procedure(s): XR cervical spine 2-3V Accession Number(s): [id number] cc: NICHOLE FLAHERTY ; HOMERO MOSES [place] [address] Patient Name: GARY HAYNES MRN: [id number] date: 1940 Sex: F Assigned Patient Location: LAB Current Patient Location: LAB Accession/Order Number: [id number] Exam Date: 07/08/2023 13:20 Report Date: 07/08/2023 14:01 At the request of: NICHOLE FLAHERTY Procedure: XR cervical spine 2-3V EXAMINATION: XR cervical spine 2-3V HISTORY: Gait Instability R20.81, Imbalance R26.59 COMPARISON: No relevant comparison available. FINDINGS: BONES: Normal alignment with no acute fracture or spondylolisthesis. Anterior fusion with a plate and screws C4 through C7 with no mechanical failure. Moderate degenerative spondylosis and facet osteoarthropathy C3-C4 DISC SPACES: Interbody fusion C3-C7. Disc collapse C3-C4 with endplate sclerosis PARASPINOUS: Negative. No paraspinous abnormality is seen. OTHER: Negative. XR/XR cervical spine 2-3V IMPRESSION: Anterior fusion C4 through C7 with no mechanical failure Electronically authenticated by: ERICK HOLDEN Date: 07/08/2023 14:01 Dictated By: Erick Holden M.D. Signed By: 07/08/23 1404 DD/ 140 TD/TT: Refrigerating Technician: Procedure Note Radiology, Radiologist, - 07/08/2023 [place] [address] XRay Report Signed Patient: GARY HAYNES KMR#: [id number] : 1940cct:[id number] Age/Sex: 82 / FADM Date: 07/08/23 Loc: LAB Attending Dr: NICHOLE FLAHERTY Ordering Physician: NICHOLE FLAHERTY Date of Service: 07/08/23 Procedure(s): XR cervical spine 2-3V Accession Number(s): [id number] cc: NICHOLE FLAHERTY ; HOMERO MOSES The [place] [id number] Patient Name: GARY HAYNES MRN: [id number] date: 1940 Sex: F Assigned Patient Location: LAB Current Patient Location: LAB Accession/Order Number: [id number] Exam Date: 07/08/2023 13:20 Report Date: 07/08/2023 14:01 At the request of: NICHOLE FLAHERTY Procedure: XR cervical spine 2-3V EXAMINATION: XR cervical spine 2-3V HISTORY: Gait Instability R20.81, Imbalance R26.59 COMPARISON: No relevant comparison available. FINDINGS: BONES: Normal alignment with no acute fracture or spondylolisthesis.Anterior fusion with a plate and screws C4 through C7 with no mechanical failure. Moderate degenerative spondylosis and facet osteoarthropathy C3-C4 DISC SPACES: Interbody fusion C3-C7. Disc collapse C3-C4 with endplate sclerosis PARASPINOUS: Negative. No paraspinous abnormality is seen. OTHER: Negative. XR/XR cervical spine 2-3V IMPRESSION: Anterior fusion C4 through C7 with no mechanical failure Electronically authenticated by: ERICK HOLDEN Date: 07/08/2023 14:01 Dictated By: Erick Holden M.D. Signed By:07/08/23 1404 DD/ 1401 TD/TT: Refrigerating Technician: us Generic External Data Provider [facility] Final Result documented in this encounter Visit Diagnoses Not on filedocumented in this encounter Care Teams Element Burner Relationship Specialty Start Date End Date Homero Moses MD [address] [place] [address] PCP - Devoted 09/30/20 Homero Moses MD [address] [facility] [address] [place] [address] PCP - General Family Medicine 02/11/23 documented as of this encounter
--- OUTSIDE RECORDS SUMMARY | 2025-04-22 12:32 | XMS_ITS | Encounter Summary ---
Author Organization [facility] Address [address] [place] [address] Care Team Providers Care Cruller Maker Machine Name Role Phone Homero Mckeon MD Unavailable [phone] Homero Mckeon MD Primary Care Provider + [phone] Encounter Details Date Type Department Care Team (Late st Contact Info) Description 04/14/2025 Orders Only [facility] [address] [place] [address] Kellen Martinez MA Cerebral atrophy Social History Tobacco Use Types [...] often do you attend chur ch or mormon services? More than 4 times per year [...] any time in the past 12 [facility], were you homeless or living in a custodial (including now)? No 05/01/2024 Comments No Sex [...] [address] [place] [address] Homero Mckeon MD [address] [place] [address] 09/14/2025 11:30 AM EST Office Visit [facility] [address] [place] [address] Homero Mckeon MD [address] [place] [address] (Fax) documented as of this encounter Goals Goal Patient Goal Type Associated Problems Recent Progress Patient-Stated? Author Help patient manage antidepressant medication Care Plan Patient on antidepressant monitoring plan No Michelle Kellen, [place] Baseline PHQ-9 Care Plan Baseline PHQ-9 No Michelle Kellen, [place] documented as of this encounter Visit Diagnoses Diagnosis Cerebral atrophy Unspecified cerebral degeneration documented in this encounter Additional Health Concerns Active Problems Noted Date Diagnosed Date Patient on antidepressant monitoring plan 2023 Baseline PHQ-9 02/03/2024 documented as of this encounter Care Teams Cruller Maker Machine Relationship Specialty Start Date End Date Homero Mckeon MD [address] [place] [address] PCP - Devoted 09/30/20 Homero Mckeon MD [address] [place] [address] (Fax) PCP - General Family Medicine 02/11/23 documented as of this encounter
--- OUTSIDE RECORDS SUMMARY | 2025-04-22 12:33 | XMS_ITS | Encounter Summary ---
Author Organization [facility] Address [address] [place] [address] Care Team Providers Care Automatic Fabric Cutter Name Role Phone Homero Moses MD Unavailable [phone] Homero Moses MD Primary Care Provider [phone] Encounter Details Date Type Department Care Team (Late st Contact Info) Description 09/07/2024 Clinisync Result Encounter [facility] External Department Unsolicited Homero Moses MD [address] [facility] [address] [place] [address] (Fax) Social History Tobacco Use Types Packs/Day [...] often do you attend chur ch or sabianism services? More than 4 times per year [...] Recorded Patient Health Questionnaire-2 Score 0 04/04/2023 Exercise Vital Sign Answer Date Recorde d [...] time in the past 12 m [facility], were you homeless or living in a long term (including now)? No 05/01/2024 Comments No Sex [...] FM [address] [place] [address] Homero Moses MD [address] [place] [address] 09/14/2025 11:30 AM EST Office Visit [facility] [address] [place] [address] Homero Moses MD [address] [place] [address] documented as of this encounter Goals Goal Patient Goal Type Associated Problems Recent Progress Patient-Stated? Author Help patient manage antidepressant medication Care Plan Patient on antidepressant monitoring plan No Michelle December, Baseline PHQ-9 Care Plan Baseline PHQ-9 No Michelle December, documented as of this encounter Procedures Procedure Name Priority Date/Time Associated Diagnosis Comments MM TOMOSYNTHESIS SCREENING BI 09/07/2024 9:30 AM EST documented in this encounter Results * MM TOMOSYNTHESIS SCREENING BI (09/07/2024 9:30 AM EST) Anatomical Region Laterality Modality Other 09/07/2024 9:30 AM EST Narrative 09/07/2024 9:31 AM EST [address] [address] Mammography Report Signed Patient: GARY HAYNES MR#: [id number] : 1940 Acct:[id number] Age/Sex: 83 / F ADM Date: 09/07/24 Loc: MAMMO Attending Dr: HOMERO MOSES Ordering Physician: HOMERO MOSES Results: Date of Service: 09/07/24 Follow Up: Procedure(s): MM tomosynthesis screening BI Accession Number(s): [id number] cc: HOMERO MOSES Patient Name: GARY HAYNES MR#: [id number] : 1940 Exam Date: 09/07/2024 Ordering Doctor: DR HOMERO MOSES . RADIOLOGY REPORT PROCEDURE: MM TOMOSYNTHESIS SCREENING BI COMPARISON: MM TOMOSYNTHESIS SCREENING BI, 08/09/2023. MG MAMM SCREEN 3D RUBEN CAD, 07/04/2022. MG MAMM RUBEN DIAG W CAD, 12/10/2019. MAMMO RUBEN SCREEN, 07/08/2008. INDICATIONS: Screening Calculator Name NCI Breast Cancer Risk Assessment Tool 5 Year Breast Cancer Risk n/a% Lifetime Breast Cancer Risk n/a% Personal Breast Cancer Yes, Right, 76 Personal Ovarian Cancer No Treatments lumpectomy and radiation treatment Family Cancers Mother with colon cancer at age 70. LOCATION: The [facility] BREAST COMPOSITION: The breasts are heterogeneously dense,which may obscure small masses. FINDINGS: DIAGNOSTIC CATEGORY 2--BENIGN FINDING: RIGHT BREAST: No significant suspicious finding. Stable postsurgical changes/scarring. No significant change has occurred. LEFT BREAST: No significant suspicious finding. No significant change has occurred. RECOMMENDATIONS: ROUTINE MAMMOGRAM AND CLINICAL EVALUATION IN 12 MONTHS. PLEASE NOTE: A NORMAL MAMMOGRAM DOES NOT EXCLUDE THE POSSIBILITY OF BREAST CANCER. A CLINICALLY SUSPICIOUS PALPABLE LUMP SHOULD BE BIOPSIED. Dictated by: Rory Velásquez M.D. on 09/07/2024 at 09:26 Approved by: Rory Velásquez M.D. on 09/07/2024 at 09:30 Dictated By: Rory Velásquez M.D. Signed By: 09/07/24930 DD/ 9 TD/TT: Chimney Builder: Procedure Note Radiology, Radiologist, MD - 09/07/2024 [place] [address] Mammography Report Signed Patient: GARY HAYNES KMR#: [id number] : 1940cct:[id number] Age/Sex: 83 / FADM Date: 09/07/24 Loc: MAMMO Attending Dr: HOMERO MOSES Ordering Physician: HOMERO MOSESResults: Date of Service: 09/07/24Follow Up: Procedure(s): MM tomosynthesis screening BI Accession Number(s): [id number] cc: HOMERO MSOES Patient Name: GARY HAYNES MR#: [id number] : 1940 Exam Date: 09/07/2024 Ordering Doctor: DR HOMERO MOSES . RADIOLOGY REPORT PROCEDURE: MM TOMOSYNTHESIS SCREENING BI COMPARISON: MM TOMOSYNTHESIS SCREENING BI, 08/09/2023. MG MAMM UNREGR1E RUBEN CAD, 07/04/2022. MG MAMM RUBEN DIAG W CAD, 12/10/2019. MAMMO BILSCREEN, 07/08/2008. INDICATIONS: Screening Calculator Name NCI Breast Cancer Risk Assessment Tool 5 Year Breast Cancer Risk n/a% Lifetime Breast Cancer Risk n/a% Personal Breast Cancer Yes, Right, 76 Personal Ovarian Cancer No Treatments lumpectomy and radiation treatment Family Cancers Mother with colon cancer at age 70. LOCATION: The [facility] BREAST COMPOSITION: The breasts are heterogeneously dense,which may obscure small masses. FINDINGS: DIAGNOSTIC CATEGORY 2--BENIGN FINDING: RIGHT BREAST: No significant suspicious finding. Stable postsurgical changes/scarring. No significant change has occurred. LEFT BREAST: No significant suspicious finding. No significant changehas occurred. RECOMMENDATIONS: ROUTINE MAMMOGRAM AND CLINICAL EVALUATION IN 12 MONTHS. PLEASE NOTE: A NORMAL MAMMOGRAM DOES NOT EXCLUDE THE POSSIBILITY OFBREAST CANCER. A CLINICALLY SUSPICIOUS PALPABLE LUMP SHOULD BE BIOPSIED. Dictated by: Rory Velásquez M.D. on 09/07/2024 at 09:26 Approved by: Rory Velásquez M.D. on 09/07/2024 at 09:30 Dictated By: Rory Velásquez M.D. Signed By:09/07/24930 DD/ 9 TD/TT: Chimney Builder: us Homero Moses MD [facility] Final Resu lt documented in this encounter Visit Diagnoses Not on filedocumented in this encounter Additional Health Concerns Active Problems Noted Date Diagnosed Date Patient on antidepressant monitoring plan 2023 Baseline PHQ-9 02/03/2024 documented as of this encounter Care Teams Automatic Fabric Cutter Relationship Specialty Start Date End Date Homero Moses MD [address] [place] [address] PCP - Devoted 09/30/20 Homero Moses MD [address] [address] PCP - General Family Medicine 02/11/23 documented as of this encounter
--- OUTSIDE RECORDS SUMMARY | 2025-04-22 12:33 | XMS_ITS ---
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 Past Treatment and Therapy Plans NON-CHEMO 1 Plan Name Start Date Discontinue Date Treatment Medications Discontinue Reason Plan Provider Cycles BONE MODIFYING AGENT: $$$$ - Q180D IF CrCl IS LESS THAN 30 ML/MIN 07/24/20 21 09/03/2023 denosumab (PROLIA) Other Pranav Cuellar MD 2 of 4 cycles started BONE MODIFYING AGENT: $ - Q6 MONTHS IF CRCL IS GREATER THAN 30 ML/MIN 1 07/13/2021 zoledronic [id number]-8. 9NaCl (ZOMETA)zoledr onic acid (ZOMETA) Not Tolerated Randa Galeas PA-C 1 of 6 cycles started BONE MODIFYING AGENT: $$$$ - Q180D IF CrCl IS LESS THAN 30 ML/MIN 1 01/19/2021 denosumab (PROLIA) Randa Ahmadi PA-C Treatment not started Treatment Summaries Malignant neoplasm of right breast in female, estrogen receptor positive (HCC)* Treatment Summary and Survivorship Care Plan for Breast Cancer Provided by: RANDA GALEAS PA-C General Information Patient Name: Yanet Haynes Patient : 1940 Health Care Providers Primary Care Provider: Homero Mckeon MD Surgeon: Dr. Padilla Radiation Oncologist: Aranza Woody MD-- Medical Oncologist: Osmani Adrian MD-- Treatment Summary Diagnosis Cancer Type/Histology Subtype: Right Breast Cancer Diagnosis Date (year):11/06/2017-ultrasound guided biopsy Receptors: Estrogen positive, Progesterone positive and HER2 negative Stage: IA (T1c N0 M0) Treatment Completed Surgery: Yes Surgery Date(s) (year): 01/24/18 Surgical procedure/findings: Partial mastectomy Lymph node removal: [place] biopsy Radiation: Yes Body area treated: Right Breast End Date (year): 03/05/18-04/22/18 Systemic Therapy (chemotherapy, hormonal therapy, other): Yes: After surgery Name of Agents Used: Other: Anastrazole : End Dates (year): Start date 05/01/18 (goal is to complete 5 years of hormonal therapy) Treatment Ongoing Endocrine Treatment: Anastrozole- Possible side effects: hot flashes, joint/muscle aches, vaginal dryness, bone loss and hair thinning Familial Cancer Risk Assessment Breast and or ovarian cancer in 1st or 2nd degree relatives: No Received Genetic counseling: No Genetic testing: No Genetic testing results: N/A Follow-up Care Plan Your follow-up care plan is design to inform you and primary care providers regarding the recommended and required follow-up, cancer screening and routine health maintenance that is needed to maintain optimal health. Possible late- and long-term effects that someone with this type of cancer and treatment may experience: Bones become weak and at rish for fracture (osteoporosis) It is important to remember that these symptoms can be due to other causes like diabetes or with normal age. If these or any other new symptoms occur bring these to attention of your health care provider. These symptoms should be brought to the attention of your provider: 1. Anything that represents a brand new symptom; 2. Anything that represents a persistent symptom; 3. Anything you are worried about that might be related to the cancer coming back. Please continue to see your primary care provider for all general health care recommended for a women your age such as routine immunizations, and routine non- breast cancer screening like colonoscopy or bone density exams. Consult with your health care provider about prevention and screening for bone loss using bone density tests. Schedule of clinical visits for cancer follow-up Follow-Up Item How often? Who's Responsible? Breast self-exam Monthly Patient Clinical breast exams Years from diagnosis 0-3 Every 3-6 months 3-5 Every 6 months Beyond 5 Annually Oncology Team (okay to alternate with oncology providers) Breast imaging (Mammogram unless otherwise indicated) Annually Medical Oncology Bone density (if on aromatase inhibitor or older than 65 years old) Every 2 years Medical oncology Cancer surveillance or other recommended related tests Coordinating Provider Test How Often Oncology Team Mammogram Annually MANAGER SUPPORT SERVICES or PCP Pap/pelvic exam As indicated by provider PCP Colonoscopy As indicated by provider PCP or Oncology Team- if on Aromatase Inhibitors Bone Density Every 2 years if on an aromatase inhibitor or as indicated by your provider. Breast cancer survivors may experience issues with the areas listed below. If you have any concernsin these or other areas, please speak with your doctors or nurses to find out how you can get help with them: anxiety or depression , emotional or mental health, fatigue, fertility, financial advice or assistance, insurance, memory or concentration loss, parenting, physicial functioning, school/work and sexual functioning A number of lifestyle/behaviors can affect your ongoing health, including the risk for the cancer coming back or developing another cancer. Discuss these recommendations with your doctor or nurse: alcohol use, diet, management of medications, management of other illnesses, physical activity, sun screen use, tobacco use/cessation and weight management (loss/gain) Resources you may be interested in: [employer] Agent [phone] Living with Cancer Support Group, First Saturday of the month at [facility] 11:30am-12:30pm [place] [facility] (Breast Cancer Support Group) Fourth Saturday of the at [facility] 4-5pm Prepared by: RANDA GALEAS PA-C Delivered on: 06/03/18 - This Survivorship Care Plan is a cancer treatment summary and follow-up plan is provided to you to keep with your health care records and to share with your primary care provider. - This summary is a brief record of major aspects of your cancer treatment. You can share your copywith any of your doctors or nurses. However, this is not a detailed or comprehensive record of yourcare.
--- OUTSIDE RECORDS SUMMARY | 2025-04-22 12:33 | XMS_ITS | Encounter Summary ---
Author Organization [facility] Address [address] [place] [address] Care Team Providers Care Luggage Maker Name Role Phone Homero Mckeon MD Unavailable [phone] Homero Mckeon MD Primary Care Provider + [phone] Reason for Visit * Reason Onset Date Comments Results 04/13/2025 Encounter Details Date Type Department Care Team (Late st Contact Info) Description 04/13/2025 Telephone [facility] [address] [place] [address] Homero Mckeon MD [address] [facility] [address] [place] [address] (Fax) Results Social History Tobacco Use Types Packs/Day Years [...] often do you attend chur ch or worship services? More than 4 times per year [...] any time in the past 12 m [facility], were you homeless or living in a chcf (including now)? No 05/01/2024 Comments No Sex and Gender Information Value Date Recorded Sex Assigned at Not on file Legal Sex Female 8:34 PM EDT Gender Identity Not on file Sexual Orientation Not on file documented as of this encounter Miscellaneous Notes * Addendum Note - Kellen Moncada MA - 04/22/2025 11:56 AM EDTAddended by: KELLEN MONCADA on: 04/22/2025 11:56 AM Modules accepted: Orders * Telephone Encounter - Kellen Moncada MA - 04/22/2025 11:53 AM EDT Was able to reach pt and she was agreeable to this. She stated she had explosive diarrhea this morning. She will wait 30 minutes and get pre-reg at [facility] and collect materials to collect the stool * Telephone Encounter - Kellen Moncada MA - 04/22/2025 10:08 AM EDT Attempted to call again, no answer * Telephone Encounter - Kellen Moncada MA - 04/22/2025 8:46 AM EDT Attempted to call, unable to reach * Telephone Encounter - Kellen Moncada MA - 04/21/2025 3:47 PM EDT Pt called because she is concerned that she is still very runny and not having formed stools. * Telephone Encounter - Kellen Moncada MA - 04/19/2025 3:54 PM EDT Patient was notified and verbalized understanding. He/She knows to contact office with any further questions. * Telephone Encounter - Kellen Moncada MA - 04/19/2025 2:11 PM EDT She called to let you know how she is doing. She is doing the miralax BID like you had said and sheis making significant progress. She is going 2-3 times a day depending on how many times she eats. She states she puts something in and something comes out. * Telephone Encounter - Kellen Moncada MA - 04/13/2025 2:23 PM EDT Patient was notified and verbalized understanding. He/She knows to contact office with any further questions. * Telephone Encounter - Homero Mckeon MD - 04/13/2025 1:58 PM EDT Notify her that she is very constipated. Hard stool is noted all the way into the transverse colon.There stool backed up clear around to the cecum where the small bowel attaches. I suspect her body is just trying to get that out and this is why she is being incontinent of stool. She should use a laxative. Either Dulcolax or Senokot. She should take 2 of these with a big glass of water. She may need to repeat this dose in the morning if she does not have significant bowel movements. She will need to be near a bathroom. She also then, after she has had her bowel movements and this is resolved continue with MiraLax 1 dose twice daily. documented in this encounter Plan of Treatment Upcoming Encounters Date Type Department Care Team (Late st Contact Info) Description 07/28/2025 11:30 AM EDT Office Visit [facility] [address] [place] [address] Homero Mckeon MD [address] [facility] [address] [place] [address] (Fax) 09/14/2025 11:30 AM EST Office Visit [facility] 100 112 [facility] [address] [place] [address] Homero Mckeon MD [address] [facility] [address] (Fax) Scheduled Orders Name Type Priority Associated Diagnoses Orde r Schedule Clostridium difficile,EIA Microbiology Routine Diarrhea of presumed infectious origin Expected: 04/22/2025 (Approximate), Expires: 04/22/2026 Stool culture Microbiology Routine Diarrhea of presumed infectious origin Expected: 04/22/2025 (Approximate), Expires: 04/22/2026 documented as of this encounter Goals Goal Patient Goal Type Associated Problems Recent Progress Patient-Stated? Author Help patient manage antidepressant medication Care Plan Patient on antidepressant monitoring plan No Michelle Kellen, [place] Baseline PHQ-9 Care Plan Baseline PHQ-9 No Kellen Moncada [place] documented as of this encounter Visit Diagnoses Diagnosis Diarrhea of presumed infectious origin documented in this encounter Additional Health Concerns Active Problems Noted Date Diagnosed Date Patient on antidepressant monitoring plan 2023 Baseline PHQ-9 02/03/2024 documented as of this encounter Care Teams Luggage Maker Relationship Specialty Start Date End Date Homero Mckeon MD [address] [facility] [address] (Fax) PCP - [facility] 09/30/20 Homero Mckeon MD [address] [facility] [address] PCP - General Family Medicine 02/11/23 documented as of this encounter
--- OUTSIDE RECORDS SUMMARY | 2025-04-22 12:33 | XMS_ITS | Encounter Summary ---
Author Organization [facility] Address [address] [place] [address] Care Team Providers Care Telemetry Rn Name Role Phone Homero Mckeon MD Unavailable [phone] Homero Mckeon MD Primary Care Provider + [phone] Encounter Details Date Type Department Care Team (Latest Contact Info) Description 04/13/2025 Travel Social History Tobacco Use Types Packs/Day Years [...] often do you attend chur ch or rastafarian services? More than 4 times per year [...] any time in the past 12 m [facility], were you homeless or living in [...] 07/28/2025 11:30 AM EDT Office Visit [facility] 100 [address] [facility] 100 [place] [address] Homero Mckeon MD [address] [place] [address] (Fax) 09/14/2025 11:30 AM EST Office Visit [facility] [address] [place] [address] Homero Mckeon MD [address] [place] [address] documented as of this encounter Goals Goal Patient Goal Type Associated Problems Recent Progress Patient-Stated? Author Help patient manage antidepressant medication Care Plan Patient on antidepressant monitoring plan No Michelle December, Baseline PHQ-9 Care Plan Baseline PHQ-9 No Kellen Martinez AMAYA documented as of this encounter Visit Diagnoses Not on filedocumented in this encounter Additional Health Concerns Active Problems Noted Date Diagnosed Date Patient on antidepressant monitoring plan 2023 Baseline PHQ-9 02/03/2024 documented as of this encounter Care Teams Telemetry Rn Relationship Specialty Start Date End Date Homero Mckeon MD [address] [place] [address] (Fax) PCP - [facility] 09/30/20 Homero Mckeon MD [address] [place] [address] PCP - General Family Medicine 02/11/23 documented as of this encounter
--- OUTSIDE RECORDS SUMMARY | 2025-04-22 12:33 | XMS_ITS | Encounter Summary ---
Author Organization [facility] Address [address] [place] [address] Care Team Providers Care Cpr Instructor Name Role Phone Homero Mckeon MD Unavailable [phone] Homero Mckeon MD Primary Care Provider + [phone] Encounter Details Date Type Department Care Team (Late st Contact Info) Description 04/13/2025 Results Follow-Up [facility] [address] [place] [address] Homero Mckeon MD [address] [place] [address] (Fax) Social History Tobacco Use Types Packs/Day [...] often do you attend chur ch or orthodox services? More than 4 times per year [...] any time in the past 12 m [facility], were you homeless or living in [...] [address] [place] [address] Homero Mckeon MD [address] [place] [address] (Fax) 09/14/2025 11:30 AM EST Office Visit [facility] [address] [place] [address] Homero Mckeon MD [address] [place] [address] (Fax) documented as of this encounter Goals Goal Patient Goal Type Associated Problems Recent Progress Patient-Stated? Author Help patient manage antidepressant medication Care Plan Patient on antidepressant monitoring plan No Michelle December, [place] Baseline PHQ-9 Care Plan Baseline PHQ-9 No Michelle December, [place] documented as of this encounter Visit Diagnoses Not on filedocumented in this encounter Additional Health Concerns Active Problems Noted Date Diagnosed Date Patient on antidepressant monitoring plan 2023 Baseline PHQ-9 02/03/2024 documented as of this encounter Care Teams Cpr Instructor Relationship Specialty Start Date End Date Homero Mckeon MD [address] [place] [address] (Fax) PCP - [facility] 09/30/20 Homero Mckeon MD [address] [place] [address] PCP - General Family Medicine 02/11/23 documented as of this encounter
--- OUTSIDE RECORDS SUMMARY | 2025-04-22 12:33 | XMS_ITS ---
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 05/20/2023 Cerebral atrophy 05/20/2023 Acquired central hypothyroidism 03/04/2023 Age-related osteoporosis wit hout current pathological fracture 03/04/2023 Allergic rhinitis due to allergen 03/04/2023 Atherosclerosis of [place] co ronary artery of [place] heart without angina pectoris 03/04/2023 Atrophic vaginitis 03/04/2023 Cerebral meningioma 03/04/2023 Chronic constipation 03/04/2023 Chronic diastolic heart failure 03/04/2023 Chronic fatigue 03/04/2023 Euthyroid sick syndrome 03/04/2023 Gastroesophageal reflux disease without esophagi tis 03/04/2023 Granuloma of liver 03/04/2023 Granulomatous disease 03/04/2023 Malignant neoplasm of lower- outer quadrant of right female breast 03/04/2023 Menopausal and postmenopausal disorder Mixed dyslipidemia 03/04/2023 Obstructive sleep apnea 03/04/2023 Osteopenia of left forearm 03/04/2023 Overactive bladder 03/04/2023 Overweight 03/04/2023 Periodic limb movements of sleep 03/04/2023 Polyp of stomach 03/04/2023 Primary hypertension 03/04/2023 Recurrent major depressive disorder, in partial remission 03/04/2023 Schatzki's ring 03/04/2023 Sleep hypopnea 03/04/2023 Vitamin D deficiency 03/04/2023 White matter disease 03/04/2023 Current Treatment and Therapy Plans No current plan information found. Past Treatment and Therapy Plans No past plan information found. Lifetime Dose Tracking * Chemical Lifetime Dose Automatic Entry Manual Entr y Radiation 211.28 mSv 211.28 mSv 0 mSv Resolved Problems Problem Noted Date Diagnosed Date Resolved Date Mixed hyperlipidemia 07/13/2016 023
--- OUTSIDE RECORDS SUMMARY | 2025-04-22 12:33 | XMS_ITS | Clinical Summary ---
Author Organization [facility] Address [address] [place] [address] Care Team Providers Care Captain Waiter/Waitress Name Role Phone Homero Mckeon MD Primary Care Provider Shadia Barrera OD Unavailable [phone] Allergies Active Allergy Reactions Criticality Noted Date Comments Milk Vomiting 06/04/2018 Oxycodone-Acetaminophe n Mental Status Change 02/06/2018 makes me crazy Soy Unknown 06/04/2018 Medications ranitidine (ZANTAC) 150 mg tabletIndication s:Malignant neoplasm of right breast in female, estrogen receptor positive, unspecified site of breast (HCC) 150 mg once daily. DIRECTED 2 8 Active Fexofenadine-Pse udoephedrine (CARMELLA-D 24 HOUR) 180-240 mg per 24 hr tablet Take 1 tablet by mouth once daily. Active KAROLINA ASPIRIN ORAL Take by mouth. Activ e cholecalciferol, vitamin D3, (D-3-5 ORAL) Take by mouth. Ac tive biotin 5 mg tab Take 5 mg by mouth once daily. Active calcium carbonate/vitami n D2 ([id number]-673-[id number] ORAL) Take by mouth. Active Magnesium 250 mg tab Take 250 mg by mouth. Active simvastatin (ZOCOR) 10 mg tablet Take 10 mg by mouth daily at bedtime. Active verapamil ER (VERELAN) 240 mg 24 hr capsule Take 240 mg by mouth daily at bedtime. Active PARoxetine (PAXIL) 20 mg tablet Take 20 mg by mouth once daily. Active anastrozole (ARIMIDEX) 1 mg tabletIndication s:Malignant neoplasm of right breast in female, estrogen receptor positive, unspecified site of breast (HCC) Take 1 tablet by mouth once daily. 14 tablet 12/03/202 0 Active MULTI-VITAMIN ORAL Refill(s) 0 1 Active azelastine (ASTELIN) 0.1% nasal spray azelastine 137 mcg (0.1 %) nasal spray aerosol USE 2 SPRAYS IN EACH NOSTRIL TWICE A DAY PRN Active buPROPion SR (ZYBAN SR; WELLBUTRIN SR) 150 mg 12 hr tablet TAKE 1 TABLET BY MOUTH EVERY DAY IN THE MORNING 1 Active estradiol (ESTRACE) 0.01 % (0.1 mg/gram) vaginal cream INSERT ONE GRAM VAGINALLY THREE TIMES WEEKLY 1 Active thyroid, pork, (LEAD BASED PAINT TECHNICIAN THYROID) 60 mg LEAD BASED PAINT TECHNICIAN Thyroid 60 mg tablet TAKE 1 TABLET BY MOUTH TWICE A DAY ON EMPTY STOMACH Active sucralfate (CARAFATE) 1 gram tablet Carafate 1 gram tablet Take 1 tablet twice a day by oral route. Active CALCIUM CITRATE ORAL Take by mouth. Activ e solifenacin (VESICARE) 5 mg tablet TAKE 1 TABLET BY MOUTH DAILY FOR 2 WEEKS THEN INCREASE TO 2 TABLETS DAILY TOLERATING SIDE EFFECTS 1 Active STRONTIUM [id number] -FA ORAL Take by mouth. Activ e anastrozole (ARIMIDEX) 1 mg tablet TAKE 1 TABLET BY MOUTH EVERY DAY 90 tablet 3 2 Active Active Problems Problem Noted Date Diagnosed Date Osteopenia of spine 01/11/2022 Osteoporosis due to aromatase inhibitor 01/12/20 22 Age-related osteoporosis wit hout current pathological fracture 01/12/2021 Malignant neoplasm of right breast in female, estrogen receptor positive 02/06/2018 Immunizations Immunization Administration Dates Next Due COVID-19 original vaccine, a ge 12+ yr, monovalent (Quantros - PURPLE TOP) 02/28/2021,02/06/2021 COVID-19 original vaccine, f ull dose, monovalent (MODERNA) 12/13/2020,11/17/2020 influenza (HD-IIV3) vaccine, age 65+ yr, high dose, trivalent, PF (FLUZONE HIGH-DOSE) 07/04/2020,10/07/2018,07/08/2017 influenza (IIV4) vaccine, ag e 6 mo - 64 yr, quadrivalent, PF (AFLURIA, FLUARIX, FLULAVAL, FLUZONE) 07/13/2019,07/07/2018,07/08/2017 influenza (aIIV4) vaccine, a ge 65+ yr, quadrivalent, PF (FLUAD QUAD) 08/18/2021 Family History Medical History Relation Comments Cancer Brother 1 Cancer Brother 2 Cancer Brother 3 Cancer Father Cancer Mother Cancer Paternal Grandmother Relation Status Comments Brother 1 esophageal Brother 2 Prostate Brother 3 NHL Father colon Mother colon Paternal Grandmother uterine Social History Tobacco Use Types Packs/Day Years Used Date Smoking Tobacco: Never Smokeless Tobacco: Never Alcohol Use Standard Drinks/Week Comments Yes 1 (1 standard drink = 0.6 oz pur e alcohol) PHQ-2 Answer Date Recorded PHQ-2 score 4 06/10/2019 Area Deprivation Index Answer Date [place] rded National Score (1-100), lower number is lower ri sk 70 10/26/2022 State Score (1-10), lower number is lower risk N ot on file 10/26/2022 Data from: https://www.neighborhoodatlas.[facility].edu/. Last address used for calculation [address] 10/26/2022 Comments No Sex and Gender Information Value Date Recorded Sex Assigned at Not on file Legal Sex Female 9:59 AM EST Gender Identity Not on file Sexual Orientation Not on file Last Filed Vital Signs Vital Sign Reading Time Taken Comments Blood Pressure 131/79 01/11/2022 12:33 PM EDT Pulse 81 01/11/2022 12:33 PM EDT Temperature 36.2 C (97.1 F) 01/11/2022 12:33 PM EDT Respiratory Rate 16 01/11/2022 12:33 PM EDT Oxygen Saturation 98% 01/11/2022 12:33 PM EDT Inhaled Oxygen Concentration - - Weight 62 kg (136 lb 9.6 oz) 01/11/2022 12:33 PM EDT Height 149.9 cm (4' 11.02 ) 01/11/2022 12:33 PM EDT Body Mass Index 27.57 01/11/2022 12:33 PM EDT Plan of Treatment Health Maintenance Due Date Last Done Comments Anxiety Screening 11/29/1958 Depression Screening 11/29/1959 DTaP,Tdap,Td Vaccine (1 - Tdap) 1960 Pneumococcal Vaccine: 50+ (1 of 1 - PCV) 11/29/1991 Shingrix Vaccine (1 of 2) 11/29/1991 Bone Density Screening 2006 RSV Vaccine (1 - 1-dose 75+ series) 2016 Covid-19 Vaccine (6 - 2023-2 5 season) 2024 07/26/2021, 02/28/2021, 02/06/2021, Additional history exists Advance Directive Discussion 09/30/2024 Diabetes Screening 01/11/2025 01/11/2022, 01/12/2021 Influenza Vaccine (#1) 2025 , 07/04/2020, 07/13/2019, Additional history exists Procedures Procedure Name Priority Date/Time Associated Diagnosis Comments COMPREHENSIVE METABOLIC PANEL Routine 01/11/2022 12:04 PM EDT Malignant neoplasm of lower-outer quadrant of right female breast, unspecified estrogen receptor status (HCC) Encounter for screening for osteoporosis from Last 3 Months or Most Recently Relevant to Health Maintenance Results * (ABNORMAL) COMP METABOLIC PANEL (01/11/2022 12:04 PM EDT) Protein, Total 7.2 6.3 - 8.0 g/dL 01/11/2022 12:36 PM EDT [facility] Albumin 4.4 3.9 - 4.9 g/dL 01/11/2022 12:36 PM EDT [facility] Calcium, Total 9.8 8.5 - 10.2 mg/dL 01/11/2022 12:36 PM EDT [facility] Bilirubin, Total 0.3 0.2 - 1.3 mg/dL 01/11/2022 12:36 PM EDT [facility] Alkaline Phosphatase 61 34 - 123 U/L 01/11/2022 12:36 PM EDT [facility] AST 14 13 - 35 U/L 01/11/2022 12:36 PM EDT [facility] ALT 12 7 - 38 U/L 01/11/2022 12:36 PM [facility] Glucose 97 74 - 99 mg/dL 01/11/2022 12:36 PM [facility] Comment: The [place] Diabetes Association (ADA) provides guidance for cutoff [...] Standards of Medical Care in Diabetes 2016, [place] [employer] Association. Diabetes Care. 2016.39(Suppl 1). BUN 25(H) 7 - 21 mg/dL 01/11/2022 12:36 PM [facility] Creatinine 0.93 0.58 - 0.96 mg/dL 01/11/2022 12:36 PM [facility] Sodium 136 136 - 144 mmol/L 01/11/2022 12:36 PM [facility] Potassium 4.1 3.7 - 5.1 mmol/L 01/11/2022 12:36 PM [facility] Chloride 103 97 - 105 mmol/L 01/11/2022 12:36 PM [facility] CO2 27 22 - 30 mmol/L 01/11/2022 12:36 PM [facility] Anion Gap 6(L) 9 - 18 mmol/L 01/11/2022 12:36 PM [facility] Estimated Glomerular Filtration Rate 62 >=60 mL/min/1.7 3m 01/11/2022 12:36 PM [facility] Comment:Estimated Glomerular Filtration Rate (eGFR) is calculated using the 2020 CKD-EPI creatinine equation. This equation utilizes serum creatinine, sex, and age as parameters. The creatinine assay has traceable calibration to isotope dilution- mass spectrometry. Refer to KDIGO guidelines for clinical interpretation. In patients with unstable renal function, e.g. those with acute kidney injury, the eGFR may not accurately reflect actual GFR. Blood BLOOD SPECIMEN / Unknown Venipuncture / Unknown 01/11/2022 12:04 PM EDT 01/11/2022 12:04 PM EDT us Pranav Cuellar MD LABORATORY Final Result [facility] [address] [place] [address] from Last 3 Months or Most Recently Relevant to Health Maintenance Insurance [facility] * Guarantor: Yanet Haynes Account Type Relation to Patient Date of Phone Billing Address Self Pay Self 1940 [id number] [place] [address] Care Teams Captain Waiter/Waitress Relationship Specialty Start Date End Date Homero Mckeon MD [address] [place] [address] PCP - General Family Medicine 05/09/15 Shadia Barrera OD [address] [place] [address] Referring Optometry 04/10/21
--- OUTSIDE RECORDS SUMMARY | 2025-04-22 12:33 | XMS_ITS | Encounter Summary ---
Author Organization [facility] Address [address] [place] [address] Care Team Providers Care Employment Adjudicator Name Role Phone Homero Mckeon MD Unavailable [phone] Homero Mckeon MD Primary Care Provider [phone] Reason for Visit * Reason Comments Med Refill Encounter Details Date Type Department Care Team (Late st Contact Info) Description 11/18/2024 Refill [facility] [address] [place] [address] Homero Mckeon MD [address] [place] [address] (Fax) Acquired [facility] Social History Tobacco Use Types Packs/Day Years [...] often do you attend chur ch or caodaism services? More than 4 times per year [...] time in the past 12 m [facility], were you homeless or living in a [place] facility (including now)? No 05/01/2024 Comments No Sex [...] [address] [place] [address] Homero Mckeon MD [address] [place] [address] (Fax) 09/14/2025 11:30 AM EST Office Visit [facility] [address] [place] [address] Homero Mckeon MD [address] [place] [address] (Fax) documented as of this encounter Goals Goal Patient Goal Type Associated Problems Recent Progress Patient-Stated? Author Help patient manage antidepressant medication Care Plan Patient on antidepressant monitoring plan No [place] Baseline PHQ-9 Care Plan Baseline PHQ-9 No [place] documented as of this encounter Visit Diagnoses Diagnosis Acquired central hypothyroidism documented in this encounter Additional Health Concerns Active Problems Noted Date Diagnosed Date Patient on antidepressant monitoring plan 2023 Baseline PHQ-9 02/03/2024 documented as of this encounter Care Teams Employment Adjudicator Relationship Specialty Start Date End Date Homero Mckeon MD [address] [place] [address] (Fax) PCP - Devoted 09/30/20 Homero Mckeon MD [address] [place] [address] (Fax) PCP - General Family Medicine 02/11/23 documented as of this encounter
--- OUTSIDE RECORDS SUMMARY | 2025-04-22 12:33 | XMS_ITS | Clinical Summary ---
Author Organization [facility] Address [address] [place] [address] Care Team Providers Care [employer]canizer Rubber Plate Name Role Phone Homero Mckeon MD Unavailable [phone] Homero Mckeon MD Primary Care Provider [phone] Allergies Active Allergy Reactions Criticality Noted Date Comments Memantine Other,Tinnitus,GI intolerance Medium 08/08/2023 Very tired Milk-Related Compounds 03/04/2023 Other Reaction(s): Unknown Oxycodone-Acetaminophe n 02/06/2018 Other Reaction(s): Mental Status Change makes me crazy Rosuvastatin 02/16/2025 Myalgia and feeling like she was going to . Simvastatin Other 08/03/2024 Dysesthesia described as feeling things under her skin, and myalgia Soybean-Containing Drug Products 03/04/2023 Other Reaction(s): Unknown Wheat 03/04/2023 Other Reaction(s): Unknown Medications Fexofenadine-Pseud oephedrine (CARMELLA-D 24 HOUR PO) Take 1 tablet by mouth 1 (one) time each day at the same time. Active aspirin 81 MG EC tablet Take 81 mg by mouth in the morning. Active meclizine (Antivert) 25 MG tabletIndications: Vertigo Take 0.5-2 tablets as needed for vertigo 60 tablet 03/04/20 23 Active cholecalciferol (Vitamin D-3) 25 MCG (1000 UT) capsule Take 1,000 Units by mouth in the morning. Active CALCIUM CITRATE PO Take 1 tablet by mouth in the morning. Active multivitamin (Theragran) tablet Take 2 tablets by mouth in the morning. Active albuterol (2.5 MG/3ML) 0.083% nebulizer solutionIndication s:COVID-19 Take 3 mL (2.5 mg) by nebulization every 6 (six) hours if needed for wheezing 75 mL 06/23/20 24 025 Active Nebulizers (Compressor/Nebuli zer) miscIndications:CO VID-19 Use 4 times per day and PRN SOB/wheezing 1 each 06/23/20 24 Active gabapentin (Neurontin) 300 MG capsuleIndications :Lumbosacral radiculopathy due to degenerative joint disease of spine Take 1 capsule (300 mg) by mouth in the morning and 1 capsule (300 mg) before bedtime. 60 capsule 2 10/06/19 25 Active gabapentin (Neurontin) 100 MG capsuleIndications :Lumbosacral radiculopathy due to degenerative joint disease of spine For severe pain, take an additional 1 tablet in the evening as needed 30 capsule 2 10/06/19 25 Active ipratropium (Atrovent) 0.06 % nasal spray Administer 2 sprays into each nostril Active albuterol HFA 90 mcg/act inhaler Inhale 2 puffs Daily as needed for wheezing 11/27/19 25 Active Spacer/Aero-Holdin g Chambers (Pro Comfort Spacer Adult) miscIndications:Wa lking pneumonia Use with HFA spacer. May substitute with any brand. 1 each 12/03/19 25 Active losartan (Cozaar) 50 MG tabletIndications: Primary hypertension Take 1 tablet (50 mg) by mouth Daily 90 tablet 1 02/04/20 25 025 Active verapamil SR (Calan SR) 240 MG ER tabletIndications: Primary hypertension Take 1 tablet (240 mg) by mouth Daily 90 tablet 1 02/04/20 25 Active omeprazole (PriLOSEC) [address] capsuleIndications :Gastroesophageal reflux disease without esophagitis Take 1 capsule (40 mg) by mouth in the morning and 1 capsule (40 mg) in the evening. Take before meals. 180 capsule 1 02/04/20 25 025 Active liothyronine (Cytomel) 5 MCG tabletIndications: Euthyroid sick syndrome Take 1.5 tablets (7.5 mcg) by mouth in the morning and 1.5 tablets (7.5 mcg) in the evening. Take before meals. Greenstone or sigma brand only. 90 tablet 03/10/20 25 Active buPROPion SR (Wellbutrin SR) 100 MG 12 hr tabletIndications: Recurrent major depressive disorder, in partial remission Take 1 tablet (100 mg) by mouth in the morning. Take before meals. Do not crush, chew, or split. 90 tablet 1 03/24/20 25 025 Active donepezil (Aricept) 10 MG tabletIndications: Alzheimer's disease with late onset (CODE) (HCC) Take 1 tablet (10 mg) by mouth at bedtime 90 tablet 1 03/24/20 25 025 Active levothyroxine (Synthroid, Levoxyl) 75 MCG tabletIndications: Acquired central hypothyroidism Take 0.5 tablets (37.5 mcg) by mouth in the morning. Take before meals. 45 tablet 03/24/20 25 025 Active clotrimazole-betam ethasone (Lotrisone) creamIndications:D ermatitis Apply topically in the morning and before bedtime. 30 g 03/24/20 25 025 Active PARoxetine (Paxil) 20 MG tabletIndications: Recurrent major depressive disorder, in partial remission Take 1 tablet (20 mg) by mouth in the morning. 90 tablet 1 03/24/20 25 025 Active traZODone (Desyrel) 100 MG tabletIndications: Sleep initiation disorder Take 1 tablet (100 mg) by mouth at bedtime Keep on file as refill 30 tablet 03/24/20 25 025 Active liothyronine (Cytomel) 5 MCG tabletIndications: Euthyroid sick syndrome Take 2 tablet in AM and 1.5 tablet in PM on an empty stomach. AVERY; Sigma or Greenstone brands only 315 tablet 1 03/24/20 25 Active memantine (Namenda) 5 MG tabletIndications: Cerebral atrophy Take 1 tablet (5 mg) by mouth in the morning and 1 tablet (5 mg) before bedtime. 180 tablet 1 04/14/20 25 026 Active buPROPion SR (Wellbutrin SR) 100 MG 12 hr tabletIndications: Recurrent major depressive disorder, in partial remission Take 1 tablet (100 mg) by mouth in the morning. Take before meals. Do not crush, chew, or split.. 90 tablet 1 02/18/20 24 025 Discontin ued(Reord er) donepezil (Aricept) 10 MG tabletIndications: Alzheimer's disease with late onset (CODE) (HCC) Take 1 tablet (10 mg) by mouth at bedtime 30 tablet 1 07/30/20 24 025 Discontin ued(Reord er) memantine (Namenda) 5 MG tabletIndications: Cerebral atrophy Take 1 tablet (5 mg) by mouth in the morning and 1 tablet (5 mg) before bedtime. 180 tablet 1 10/22/19 25 025 Discontin ued(Reord er) PARoxetine (Paxil) 20 MG tabletIndications: Recurrent major depressive disorder, in partial remission Take 1 tablet (20 mg) by mouth in the morning. 90 tablet 1 10/22/19 25 025 Discontin ued(Reord er) traZODone (Desyrel) 100 MG tabletIndications: Sleep initiation disorder Take 1 tablet (100 mg) by mouth at bedtime Keep on file as refill 30 tablet 02/26/20 25 025 Discontin ued(Reord er) levothyroxine (Synthroid, Levoxyl) 50 MCG tabletIndications: Acquired central hypothyroidism Take 0.5 tablets (25 mcg) by mouth in the morning and 0.5 tablets (25 mcg) in the evening. Take before meals. 30 tablet 03/10/20 25 025 Discontin ued(Reord er) Active Problems Problem Noted Date Diagnosed Date [...] rhinitis due to allergen 03/04/2023 Atherosclerosis of [place] co ronary artery of [place] heart without angina pectoris 03/04/2023 Atrophic vaginitis [...] D deficiency 03/04/2023 White matter disease 03/04/2023 Resolved Problems Problem Noted Date Diagnosed Date Resolved Date Mixed hyperlipidemia 07/13/2016 023 Encounters Date Type Department Care Team Description 04/14/2025 Orders Only [facility] [address] [facility] [address] [place] [address] Kellen Martinez, AMAYA Cerebral atrophy 04/14/2025 Refill [facility] [address] [facility] [address] [place] [address] Homero Mckeon MD Cerebral atrophy 04/13/2025 12:00 PM EDT Ancillary Procedure [facility] [address] [facility] [address] [place] [id number] Full incontinence of feces 04/13/2025 Telephone [facility] [address] [place] [address] Homero Mckeon MD Results 04/13/2025 Results Follow-Up [facility] [address] [place] [address] Homero Mckeon MD 04/13/2025 Travel 04/12/2025 Telephone [facility] [address] [place] [address] Homero Mckeon MD 04/07/2025 Telephone [facility] [address] [place] [address] Nivia Perkins RN Medication Question 03/24/2025 11:30 AM EDT Office Visit [facility] [address] [place] [address] Homero Mckeon MD Euthyroid sick syndrome (Primary Dx); Acquired central hypothyroidism ; Chronic fatigue; Recurrent major depressive disorder, in partial remission ; Alzheimer's disease with late onset (CODE) (HCC); Dermatitis; Sleep initiation disorder 03/24/2025 Bamboo flowsheet [facility] [address] [place] [address] Homero Mckeon MD 03/24/2025 Travel 03/21/2025 Results Follow-Up [facility] [address] [place] [address] Homero Mckeon MD 03/15/2025 2:30 PM EDT Office Visit [facility] [address] [place] [address] Homero Mckeon MD Dermatitis (Primary Dx); Non-seasonal allergic rhinitis due to other allergic trigger 03/15/2025 Bamboo flowsheet [facility] [address] [place] [address] Homero Mckeon MD 03/15/2025 Travel 03/10/2025 Telephone [facility] [address] [place] [address] Michelle December, [place] 03/01/2025 Telephone [facility] [address] [facility] [address] [place] [address] Michelle December, [place] Lab Orders 02/25/2025 Telephone [facility] [address] [facility] [address] [place] [address] Homero Mckeon MD 02/16/2025 Orders Only [facility] [address] [facility] [address] [place] [address] Michelle December, [place] Acquired central hypothyroidism 02/15/2025 Telephone [facility] [address] [facility] [address] [place] [address] Michelle December, [place] Care Coordination 02/03/2025 9:30 AM EDT Office Visit [facility] [address] [facility] [address] [place] [address] Homero Mckeon MD Primary hypertension ; Mixed dyslipidemia ; Myalgia due to statin; Gastroesophageal reflux disease without esophagitis 02/03/2025 Bamboo flowsheet [facility] [address] [facility] [address] [place] [address] Homero Mckeon MD 02/03/2025 Travel 01/29/2025 Clinisync Result Encounter [facility] Department Unsolicited Homero Mckeon MD 01/28/2025 Orders Only [facility] [address] [facility] [address] [place] [address] Michelle December, [place] Euthyroid sick syndrome; Sleep initiation disorder 01/27/2025 Telephone [facility] [address] [facility] [address] [place] [address] Michelle December, [place] Lab Orders from Last 3 Months Immunizations Immunization Administration Dates Next Due Influenza, High Dose Seasona l, Preservative Free 07/04/2020,10/07/2018,07/22/2015 Influenza, Seasonal, Quadriv alent, Adjuvanted 08/18/2021 Influenza, injectable, quadr ivalent, preservative free 07/25/2022,07/13/2019,07/07/2018,07/08 Moderna SARS-CoV-2 Vaccination 12/12/2020,2020 Pfizer Purple Cap SARS-CoV-2 Vaccination 02/28/2021,02/06/2021 Pneumococcal Polysaccharide PPSV23 07/25/2015 RSV, recombinant, protein cisneros bunit RSVpreF, adjuvant reconstitu, 120mcg/0.5mL, PF (Arexvy) 08/25/2024 Family History Medical History Relation Name Comments Non Hodgkin Lymphoma Brother 1 Prostate cancer Brother 1 Esophageal cancer Brother 2 Brain cancer Brother 3 Parkinsonism Brother 3 Solid Tumor Brother 3 pituitary CABG Father Colon cancer Father Prostate cancer Father Alzheimer's disease Mother Cancer Mother Relation Name Status Comments Brother 1 Brother 2 Brother 3 Daughter Alive 1 daughter Father Mother Social History Tobacco Use Types Packs/Day Years Used Date Smoking Tobacco: Never Smokeless Tobacco: Never Tobacco Cessation:Counseling Given: Yes Alcohol Use Standard Drinks/Week Comments Yes 2 [...] 05/01/2024 How often do you attend chur or synagogue services? More than 4 times per year [...] any time in the past 12 m [facility], were you homeless or living in a jail (including now)? No 05/01/2024 Comments No Sex and Gender Information Value Date Recorded Sex Assigned at Not on file Legal Sex Female 8:34 PM EDT Gender Identity Not on file Sexual Orientation Not on file Last Filed Vital Signs Vital Sign Reading Time Taken Comments Blood Pressure 122/78 02/03/2025 9:16 AM EDT Pulse 83 08/10/2024 10:20 AM EST Temperature - - Respiratory Rate - - Oxygen Saturation 99% 08/10/2024 10:20 AM EST Inhaled Oxygen Concentration - - Weight 61.7 kg (136 lb) 03/24/2025 12:08 PM EDT Height 149.9 cm (4' 11 ) 03/24/2025 12:08 PM EDT Body Mass Index 27.47 03/24/2025 12:08 PM EDT Plan of Treatment Upcoming Encounters Date Type Department Care Team (Late st Contact Info) Description 07/28/2025 11:30 AM EDT Office Visit [facility] [address] [place] [address] Homero Mckeon MD [address] [place] [address] 09/14/2025 11:30 AM EST Office Visit [facility] [address] [place] [address] Homero Mckeon MD [address] [place] [address] (Fax) Health Maintenance Due Date Last Done Comments Influenza Vaccine (#1) 2025 2, 08/18/2021, 07/04/2020, Additional history exists Pneumococcal Vaccine: 65+ Years (2 of 2 - PCV) 03/24/2026 07/25/2015 Postponed from 07/25/2016 (Patient Refused) Goals Goal Patient Goal Type Associated Problems Recent Progress Patient-Stated? Author Help patient manage antidepressant medication Care Plan Patient on antidepressant monitoring plan No Kellen Martinez MA Baseline PHQ-9 Care Plan Baseline PHQ-9 No Kellen Martinez MA Procedures Procedure Name Priority Date/Time Associated Diagnosis Comments XR ABDOMEN 2 VIEW Routine 04/13/2025 12: 01 PM EDT Full incontinence of feces TSH Routine 03/16/2025 1:48 PM EDT Acquired central hypothyroidism Chronic fatigue T4, FREE Routine 03/16/2025 1:48 PM EDT Acquired central hypothyroidism Chronic fatigue T3, FREE Routine 03/16/2025 1:48 PM EDT Euthyroid sick syndrome Chronic fatigue T3, REVERSE Routine 03/16/2025 1:48 PM EDT Euthyroid sick syndrome Chronic fatigue T3, TOTAL Routine 03/16/2025 1:48 PM EDT Euthyroid sick syndrome Chronic fatigue ALL LIPID PROFILE (FASTING) Routine 01/29/2025 11:19 AM EDT [facility] CMP (CMP) (FOR REMOTE [facility] USE) Routine 01/29/2025 11:19 AM EDT from Last 3 Months Results * XR ABDOMEN 2 VIEW (04/13/2025 [...] MD IMG XR PROCEDURES Final Resu lt * T3, reverse (03/16/2025 1:48 PM EDT) T3 REVERSE, LC/MS/MS 16 8 - 25 ng/dL [facility] Comment: This test was developed and its analytical performance characteristics have been determined by [facility] [place], [place]. It has not been cleared or approved by the U.S. Food and Drug Administration. This assay has been validated pursuant to the CLIA regulations and is used for clinical purposes. Blood Venous blood specimen / Unknown 03/16/2025 1:48 PM EDT 03/16/2025 1:49 PM EDT Narrative Resulting Agency Comment Performing Organization Information Site ID: AMD Name: [facility] Address: [address] [place] [address] [place], [place] Director: Aldair Johansen M.D.,PhD Homero Mckeon MD LAB BLOOD ORDERABLES Final R esult Performing Organization Address [facility]/ZIP Co de Phone Number [facility] * T3, free (03/16/2025 1:48 PM EDT) T3, FREE 3.3 2.3 - 4.2 pg/mL [facility] Blood Venous blood specimen / Unknown 03/16/2025 1:48 PM EDT 03/16/2025 1:49 PM EDT Narrative Resulting Agency Comment Performing Organization Information Site ID: QPT Name: [facility] Address: [address] [place] [address], [address] [place] [phone] Director: Eliezer Cates MD Homero Mckeon MD LAB BLOOD ORDERABLES Final R esult [facility] * T3 (03/16/2025 1:48 PM EDT) T3, TOTAL 106 76 - 181 ng/dL [facility] Blood Venous blood specimen / Unknown 03/16/2025 1:48 PM EDT 03/16/2025 1:49 PM EDT Narrative Resulting Agency Comment Performing Organization Information Site ID: QPT Name: [facility] Address: [address] [place] [address], [address] [place] [phone] Director: Eliezer Cates MD Homero Mckeon MD LAB BLOOD ORDERABLES Final R esult Performing Organization Address City/[facility] Co de Phone Number [facility] * TSH (03/16/2025 1:48 PM EDT) TSH 0.54 0.40 - 4.50 mIU/L [facility] Blood Venous blood specimen / Unknown 03/16/2025 1:48 PM EDT 03/16/2025 1:49 PM EDT Narrative Resulting Agency Comment Performing Organization Information Site ID: QPT Name: [facility] Address: [address] [place] [address], [address] [place] [phone] Director: Eliezer Cates MD Homero Mckeon MD LAB BLOOD ORDERABLES Final R esult Performing Organization Address [facility] Co de Phone Number [facility] * T4, free (03/16/2025 1:48 PM EDT) T4, FREE 1.1 0.8 - 1.8 ng/dL [facility] Blood Venous blood specimen / Unknown 03/16/2025 1:48 PM EDT 03/16/2025 1:49 PM EDT Narrative Resulting Agency Comment Performing Organization Information Site ID: QPT Name: [facility] Address: [address] [place] [address], [address] [place] [phone] Director: Eliezer Cates MD Homero Mckeon MD LAB BLOOD ORDERABLES Final R esult Performing Organization Address [facility]/ZIP Co de Phone Number [facility] * (ABNORMAL) [facility] CMP (CMP) (FOR REMOTE [facility] USE) (01/29/2025 11:19 AM EDT) SODIUM 142 136 - 145 mmol/L [facility] POTASSIUM 4.6 3.5 - 5.1 mmol/L [facility] CHLORIDE 105 98 - 107 mmol/L [facility] CARBON DIOXIDE 32.1(H) 21.0 - 32.0 mmol/L [facility] ANION GAP 9.5 [facility] GLUCOSE 93 74 - 106 mg/dL [facility] BLOOD UREA NITROGEN 22.0(H) 7.0 - 18.0 mg/dL [facility] CREATININE 0.85 0.55 - 1.02 mg/dL [facility] EGFR-AF TUVALUAN >60 >=60 mL/min/1. 73m 2 TB[facility] TBH EGFR-NON AF TUVALUAN >60 >=60 mL/min/1. 73m 2 [facility] BUN CREATININE RATIO 25.9 [facility] CALCIUM 9.2 8.5 - 10.1 mg/dL [facility] BILIRUBIN TOTAL 0.3 0.2 - 1.0 mg/dL [facility] ASPARTATE AMINO TRANSFERASE 10(L) 15 - 37 U/L [facility] ALANINE AMINOTRANSFERASE 19 14 - 59 U/L [facility] ALKALINE PHOSPHATASE 53 46 - 116 U/L [facility] TOTAL PROTEIN 7.0 6.4 - 8.2 g/dL [facility] ALBUMIN LEVEL 3.4 3.4 - 5.0 g/dL [facility] GLOBULIN 3.6 g/dL [facility] ALBUMIN GLOBULIN RATIO 0.9 [facility] 01/29/2025 11:1 9 AM EDT 01/29/2025 11:20 AM EDT Narrative [facility] - 01/29/2025 12:06 PM EDT Homero Mckeon MD [facility]NC Final [facility] * ([facility]NORM[facility]) ALL LIPID PROFILE (FASTING) (01/29/2025 11:19 AM EDT) TRIGLYCERIDES 56 <=150 mg/dL [facility] CHOLESTEROL 324(H) <=200 mg/dL [facility] HDL CHOLESTEROL 101(H) 40 - 60 mg/dL [facility] Comment: > or =60 mg/dl - LOW CARDIOVASCULAR RISK <40 mg/dl - HIGH CARDIOVASCULAR RISK LDL CHOLESTEROL CALCULATED 212.0 mg/dL TB Comment: <100 mg/dl OPTIMAL 100-129 mg/dl NEAR OR ABOVE OPTIMAL 130-159 mg/dl BORDERLINE HIGH 160-189 mg/dl HIGH >190 mg/dl VERY HIGH VLDL CHOLESTEROL 11.2 mg/dL [facility] CHOL HDL RATIO 3.2 [facility] Comment: 3.3 - 4.4 LOW RISK 4.4 - 7.1 AVERAGE RISK 7.1 - 11.0 MODERATE RISK >11.0 HIGH RISK 01/29/2025 11:1 9 AM EDT 01/29/2025 11:20 AM EDT Narrative CLINISYNC - 01/29/2025 12:06 PM EDT Homero Mckeon MD CLINISYSUZANNE Final Result [facility] Last 3 Months Additional Health Concerns Active Problems Noted Date Diagnosed Date Patient on antidepressant monitoring plan 2023 Baseline PHQ-9 02/03/2024 Insurance [employer] Advance Directives Documents on File Type Date Recorded 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
--- OUTSIDE RECORDS SUMMARY | 2025-04-22 12:33 | XMS_ITS | Encounter Summary ---
Author Organization [facility] Address [address] [place] [address] Care Team Providers Care Export Sales Manager Name Role Phone Homero Moses MD Unavailable [phone] Homero Moses MD Primary Care Provider + [phone] Encounter Details Date Type Department Care Team (Late st Contact Info) Description 07/22/2024 Clinisync Result Encounter [facility] External Department Unsolicited Homero Moses MD [address] [facility] [address] [place] [address] (Fax) Social History Tobacco Use Types Packs/Day [...] often do you attend chur ch or jehovah's witness services? More than 4 times per year [...] any time in the past 12 m [facility], were you homeless or [...] [facility] [address] [facility] [address] [place] [address] Homero Moses MD [address] [place] [address] 09/14/2025 11:30 AM EST Office Visit [facility] [address] [place] [address] Homero Moses MD [address] [facility] [address] [place] [address] documented as of this encounter Goals Goal Patient Goal Type Associated Problems Recent Progress Patient-Stated? Author Help patient manage antidepressant medication Care Plan Patient on antidepressant monitoring plan No Michelle December, Baseline PHQ-9 Care Plan Baseline PHQ-9 No Michelle December, documented as of this encounter Procedures Procedure Name Priority Date/Time Associated Diagnosis Comments XR HIP 2 OR 3 VW RIGHT 07/22/2024 3:38 PM EDT documented in this encounter Results * XR hip right 2 or 3 views (07/22/2024 3:38 PM EDT) Anatomical Region Laterality Modality Lower Extremities, Hip Right Radiograp hic Imaging 07/22/2024 3:38 PM EDT Narrative 07/22/2024 3:41 [place] [address] XRay Report Signed Patient: GARY HAYNES MR#: [id number] : 1940 Acct:[id number] Age/Sex: 83 / F ADM Date: 07/21/24 Loc: RAD Attending Dr: HOMERO MOSES Ordering Physician: HOMERO MOSES Date of Service: 07/21/24 Procedure(s): XR hip RT min 2V Accession Number(s): [id number] cc: HOMERO MOSES [place] [address] Patient Name: GARY HAYNES MRN: [id number] date: 1940 Sex: F Assigned Patient Location: RAD Current Patient Location: ER Accession/Order Number: [id number] Exam Date: 07/21/2024 11:45 Report Date: 07/22/2024 15:38 At the request of: HOMERO MOSES Procedure: XR hip RT min 2V PROCEDURE: XR hip RT min 2V HISTORY: Right Hip Pain M25.551 COMPARISON: None. FINDINGS: BONES:No fracture or dislocation. Calcium deposition within the cartilage. Mild joint space narrowing. SOFT TISSUES:No visible soft tissue swelling. EFFUSION:None visible. OTHER: Negative. XR/XR hip RT min 2V IMPRESSION: 1. No acute bone abnormality. 2. Mild to moderate degenerative joint disease. Electronically authenticated by: RORY VELÁSQUEZ Date: 07/22/2024 15:38 Dictated By: Rory Velásquez M.D. Signed By: 07/22/24 1541 DD/ 1538 TD/TT: Department Coordinator: Procedure Note Radiology, Radiologist, MD - 07/22/2024 [place] [address] XRay Report Signed Patient: GARY HAYNES KMR#: [id number] : 1940cct:[id number] Age/Sex: 83 / FADM Date: 07/21/24 Loc: RAD Attending Dr: HOMERO MOSES Ordering Physician: HOMERO MOSES Date of Service: 07/21/24 Procedure(s): XR hip RT min 2V Accession Number(s): [id number] cc: HOMERO MOSES [place] [address] Patient Name: GARY HAYNES MRN: [id number] date: 1940 Sex: F Assigned Patient Location: RAD Current Patient Location: ER Accession/Order Number: [id number] Exam Date: 07/21/2024 11:45 Report Date: 07/22/2024 15:38 At the request of: HOMERO MOSES Procedure: XR hip RT min 2V PROCEDURE: XR hip RT min 2V HISTORY: Right Hip Pain M25.551 COMPARISON: None. FINDINGS: BONES:No fracture or dislocation. Calcium deposition within the cartilage. Mild joint space narrowing. SOFT TISSUES:No visible soft tissue swelling. EFFUSION:None visible. OTHER: Negative. XR/XR hip RT min 2V IMPRESSION: 1. No acute bone abnormality. 2. Mild to moderate degenerative joint disease. Electronically authenticated by: RORY VELÁSQUEZ Date: 07/22/2024 15:38 Dictated By: Rory Velásquez M.D. Signed By:07/22/24 1541 DD/ 1538 TD/TT: Department Coordinator: Homero Moses MD IMG XR PROCEDURES Final Resu lt documented in this encounter Visit Diagnoses Not on filedocumented in this encounter Additional Health Concerns Active Problems Noted Date Diagnosed Date Patient on antidepressant monitoring plan 2023 Baseline PHQ-9 02/03/2024 documented as of this encounter Care Teams Export Sales Manager Relationship Specialty Start Date End Date Homero Moses MD [address] [address] PCP - Devoted 09/30/20 Homero Moses MD [address] [place] [facility] [address] [place] [place] [address] PCP - General Family Medicine 02/11/23 documented as of this encounter
--- OUTSIDE RECORDS SUMMARY | 2025-04-22 12:33 | XMS_ITS | Encounter Summary ---
Author Organization [facility] Address [address] [place] [address] Care Team Providers Care Corn Shredder Name Role Phone Homero Mckeon MD Unavailable [phone] Homero Mckeon MD Primary Care Provider + [phone] Encounter Details Date Type Department Care Team (Late st Contact Info) Description 04/12/2025 Telephone [facility] [address] [place] [address] Homero Mckeon MD [address] [facility] [address] [place] [address] (Fax) Social History Tobacco Use Types Packs/Day [...] any time in the past 12 m [facility], were you homeless or living in a longterm (including now)? No 05/01/2024 Comments No Sex and Gender Information Value Date Recorded Sex Assigned at Not on file Legal Sex Female 8:34 PM EDT Gender Identity Not on file Sexual Orientation Not on file documented as of this encounter Miscellaneous Notes * Telephone Encounter - Homero Mckeon MD - 04/12/2025 3:39 PM EDT I spoke with her and for the last several days she is having thin but not true liquid stools which is unusual for her. Is happening and she is unaware of it sometimes. She has a full feeling like sheneeds to move her bowels even though with his many episodes she can not imagine there is much more stool in there. We discussed and will proceed with diagnostic imaging with x-ray of the abdomen. Orders placed and patient instructed * Telephone Encounter - Leanna Shultz - 04/12/2025 12:15 PM EDT [facility] called. She has had issues over the weekend of soiling herself yet feels constipated. Please advise. documented in this encounter Plan of Treatment Upcoming Encounters Date Type Department Care Team (Late st Contact Info) Description 07/28/2025 11:30 AM EDT Office Visit [facility] [address] [place] [address] Homero Mckeon MD [address] [place] [address] 09/14/2025 11:30 AM EST Office Visit [facility] [address] [place] [address] Homero Mckeon MD [address] [place] [address] documented as of this encounter Goals Goal Patient Goal Type Associated Problems Recent Progress Patient-Stated? Author Help patient manage antidepressant medication Care Plan Patient on antidepressant monitoring plan No Kellen Martinez AMAYA Baseline PHQ-9 Care Plan Baseline PHQ-9 No Kellen Martinez AMAYA documented as of this encounter Results * XR ABDOMEN 2 [...] encounter Visit Diagnoses Diagnosis Full incontinence of feces- Primary Full incontinence of feces documented in this encounter Additional Health Concerns Active Problems Noted Date Diagnosed Date Patient on antidepressant monitoring plan 2023 Baseline PHQ-9 02/03/2024 documented as of this encounter Care Teams Corn Shredder Relationship Specialty Start Date End Date Homero Mckeon MD [address] [address] PCP - Devoted 09/30/20 Homero Mckeon MD [address] [place] [address] PCP - General Family Medicine 02/11/23 documented as of this encounter
--- OUTSIDE RECORDS SUMMARY | 2025-04-22 12:33 | XMS_ITS | Encounter Summary ---
Author Organization [facility] Address [address] [place] [address] Care Team Providers Care Food And Nutrition Supervisor Name Role Phone Homero Mckeon MD Unavailable [phone] Homero Mckeon MD Primary Care Provider + [phone] Reason for Visit * Reason Comments Med Refill Encounter Details Date Type Department Care Team (Late st Contact Info) Description 05/21/2024 Refill [facility] [address] [facility] [place] [address] Homero Mckeon MD [address] [facility] [address] [place] [address] (Fax) Recurrent major depressive disorder, in partial remission Social History Tobacco Use [...] often do you attend chur ch or religion services? More than 4 times per year [...] any time in the past 12 m [facility], were you homeless or living in a intermediate (including now)? No 05/01/2024 Comments No Sex [...] [address] [place] [address] Homero Mckeon MD [address] [place] [address] (Fax) 09/14/2025 11:30 AM EST Office Visit [facility] [address] [place] [address] Homero Mckeon MD [address] [place] [address] (Fax) documented as of this encounter Goals Goal Patient Goal Type Associated Problems Recent Progress Patient-Stated? Author Help patient manage antidepressant medication Care Plan Patient on antidepressant monitoring plan No Michelle December, [place] Baseline PHQ-9 Care Plan Baseline PHQ-9 No Michelle December, [place] documented as of this encounter Visit Diagnoses Diagnosis Recurrent major depressive disorder, in partial remission documented in this encounter Additional Health Concerns Active Problems Noted Date Diagnosed Date Patient on antidepressant monitoring plan 2023 Baseline PHQ-9 02/03/2024 documented as of this encounter Care Teams Food And Nutrition Supervisor Relationship Specialty Start Date End Date Homero Mckeon MD [address] [place] [address] (Fax) PCP - Devoted 09/30/20 Homero Mckeon MD [address] [place] [address] (Fax) PCP - General Family Medicine 02/11/23 documented as of this encounter
--- OUTSIDE RECORDS SUMMARY | 2025-04-22 12:33 | XMS_ITS | Encounter Summary ---
Author Organization [facility] Address [address] [place] [address] Care Team Providers Care Staff Research Scientist Name Role Phone Homero Mckeon MD Unavailable [phone] Homero Mckeon MD Primary Care Provider + [phone] Reason for Visit * Reason Comments Med Refill Encounter Details Date Type Department Care Team (Late st Contact Info) Description 10/21/2024 Refill [facility] [address] [place] [address] Homero Mckeon MD [address] [place] [address] (Fax) Social History Tobacco Use Types Packs/Day [...] any [facility] in the past [facility], were [facility] homeless or living in a senior care (including now)? No 05/01/2024 Comments No Sex [...] [address] [place] [address] Homero Mckeon MD [address] [place] [address] (Fax) 09/14/2025 11:30 AM EST Office Visit [facility] [address] [place] [address] Homero Mckeon MD [address] [place] [address] (Fax) documented as of this encounter Goals Goal Patient Goal Type Associated Problems Recent Progress Patient-Stated? Author Help patient manage antidepressant medication Care Plan Patient on antidepressant monitoring plan No Michelle Kellen, [place] Baseline PHQ-9 Care Plan Baseline PHQ-9 No Michelle December, [place] documented as of this encounter Visit Diagnoses Not on filedocumented in this encounter Additional Health Concerns Active Problems Noted Date Diagnosed Date Patient on antidepressant monitoring plan 2023 Baseline PHQ-9 02/03/2024 documented as of this encounter Care Teams Staff Research Scientist Relationship Specialty Start Date End Date Homero Mckeon MD [address] [place] [address] (Fax) PCP - Devoted 09/30/20 Homero Mckeon MD [address] [place] [address] (Fax) PCP - General Family Medicine 02/11/23 documented as of this encounter
--- OUTSIDE RECORDS SUMMARY | 2025-04-22 12:33 | XMS_ITS | Encounter Summary ---
Author Organization [facility] Address [address] [place] [address] Care Team Providers Care Neurourologist Name Role Phone Homero Mckeon MD Unavailable [phone] Homero Mckeon MD Primary Care Provider + [phone] Reason for Visit * Reason Comments Med Refill Encounter Details Date Type Department Care Team (Late st Contact Info) Description 10/28/2024 Refill [facility] [address] [place] [address] Homero Mckeon MD [address] [place] [address] (Fax) Acquired [facility] Social History Tobacco Use Types Packs/Day Years [...] any time in the past 12 m [facility], were you homeless or living in a fpc (including now)? No 05/01/2024 Comments No Sex [...] [address] [place] [address] Homero Mckeon MD [address] [place] [address] (Fax) 09/14/2025 11:30 AM EST Office Visit [facility] [address] [place] [address] Homero Mckeon MD [address] [place] [address] (Fax) documented as of this encounter Goals Goal Patient Goal Type Associated Problems Recent Progress Patient-Stated? Author Help patient manage antidepressant medication Care Plan Patient on antidepressant monitoring plan No Michelle, December, [place] Baseline PHQ-9 Care Plan Baseline PHQ-9 No Michelle December, [place] documented as of this encounter Visit Diagnoses Diagnosis Acquired central hypothyroidism documented in this encounter Additional Health Concerns Active Problems Noted Date Diagnosed Date Patient on antidepressant monitoring plan 2023 Baseline PHQ-9 02/03/2024 documented as of this encounter Care Teams Neurourologist Relationship Specialty Start Date End Date Homero Mckeon MD [address] [place] [address] (Fax) PCP - Devoted 09/30/20 Homero Mckeon MD [address] [place] [address] (Fax) PCP - General Family Medicine 02/11/23 documented as of this encounter
--- OUTSIDE RECORDS SUMMARY | 2025-04-22 12:33 | XMS_ITS | Encounter Summary ---
Author Organization [facility] Address [address] [place] [address] Care Team Providers Care Shipsmith Name Role Phone Homero Mckeon MD Unavailable [phone] Homero Mckeon MD Primary Care Provider + [phone] Encounter Details Date Type Department Care Team (Late Contact Info) Description 06/12/2023 Abstract [facility] [address] [facility] [place] [address] Homero Mckeon MD [address] [place] [address] (Fax) Social History Tobacco Use Types Packs/Day [...] FM [address] [place] [address] Homero Mckeon MD [address] [place] [address] 09/14/2025 11:30 AM EST Office Visit [facility] [address] [place] [address] Homero Mckeon MD [address] [facility] [address] [place] [address] documented as of this encounter Visit Diagnoses Not on filedocumented in this encounter Care Teams Shipsmith Relationship Specialty Start Date End Date Homero Mckeon MD [address] [place] [address] [facility] [address] [place] [address] PCP - Devoted 09/30/20 Homero Mckeon MD [address] [place] [address] [facility] [address] [place] [address] PCP - General Family Medicine 02/11/23 documented as of this encounter
--- OUTSIDE RECORDS SUMMARY | 2025-04-22 12:33 | XMS_ITS | Encounter Summary ---
Author Organization [facility] Address [address] [place] [address] Care Team Providers Care Director Targeted Marketing Name Role Phone Homero Mckeon MD Unavailable [phone] Homero Mckeon MD Primary Care Provider + [phone] Encounter Details Date Type Department Care Team (Late st Contact Info) Description 09/14/2024 Orders Only [facility] [address] [place] [address] Homero Mckeon MD [address] [place] [address] (Fax) Social History Tobacco Use Types Packs/Day [...] often do you attend chur ch or confucianist services? More than 4 times per year [...] time in the past 12 m [facility], were you homeless or living in a care home (including now)? No 05/01/2024 Comments No [...] [address] [place] [address] Homero Mckeon MD [address] [place] [address] (Fax) 09/14/2025 11:30 AM EST Office Visit [facility] [address] [place] [address] Homero Mckeon MD [address] [place] [address] (Fax) documented as of this encounter Goals Goal Patient Goal Type Associated Problems Recent Progress Patient-Stated? Author Help patient manage antidepressant medication Care Plan Patient on antidepressant monitoring plan No Michelle December, AMAYA Baseline PHQ-9 Care Plan Baseline PHQ-9 No Michelle December, AMAYA documented as of this encounter Procedures Procedure Name Priority Date/Time Associated Diagnosis Comments MISCELLANEOUS LAB TEST Routine 09/10/2024 12:07 PM EST documented in this encounter Results * - Miscellaneous Test (09/10/2024 12:07 PM EST) Homero Mckeon MD LAB BLOOD ORDERABLES Final R esult documented in this encounter Visit Diagnoses Not on filedocumented in this encounter Additional Health Concerns Active Problems Noted Date Diagnosed Date Patient on antidepressant monitoring plan 2023 Baseline PHQ-9 02/03/2024 documented as of this encounter Care Teams Director Targeted Marketing Relationship Specialty Start Date End Date Homero Mckeon MD [address] [place] [address] (Fax) PCP - Devoted 09/30/20 Homero Mckeon MD [address] [place] [address] (Fax) PCP - General Family Medicine 02/11/23 documented as of this encounter
--- OUTSIDE RECORDS SUMMARY | 2025-04-22 12:33 | XMS_ITS | Encounter Summary ---
Author Organization [facility] Address [address] [place] [address] Care Team Providers Care Handkerchief Cutter Name Role Phone Homero Mckeon MD Unavailable [phone] Homero Mckeon MD Primary Care Provider [phone] Encounter Details Date Type Department Care Team (Late Contact Info) Description 05/15/2023 Orders Only [facility] [address] [facility] [address] Homero Mckeon MD [address] [facility] 100 [place] [address] (Fax) Social History Tobacco Use Types Packs/Day Years Used Date Smoking Tobacco: Never Assessed PHQ-2 Answer Date Recorded Patient Health Questionnaire-2 [...] FM [address] [place] [address] Homero Mckeon MD [address] [place] [address] (Fax) 09/14/2025 11:30 AM EST Office Visit [facility] [address] [place] [address] Homero Mckeon MD [address] [facility] 100 [place] [address] documented as of this encounter Visit Diagnoses Not on filedocumented in this encounter Care Teams Handkerchief Cutter Relationship Specialty Start Date End Date Homero Mckeon MD [address] [address] PCP - Devoted 09/30/20 Homero Mckeon MD [address] [address] PCP - General Family Medicine 02/11/23 documented as of this encounter
--- OUTSIDE RECORDS SUMMARY | 2025-04-22 12:33 | XMS_ITS | Encounter Summary ---
Author Organization [facility] Address [address] [place] [address] Care Team Providers Care Corporate Quality Engineer Name Role Phone Homero Moses MD Unavailable [phone] Homero Moses MD Primary Care Provider [phone] Encounter Details Date Type Department Care Team (Late st Contact Info) Description 08/05/2024 Clinisync Result Encounter N[facility] External Department Unsolicited Homero Moses MD 112 [facility] [address] [place] [address] (Fax) Social History Tobacco Use Types Packs/Day [...] any time in the past 12 m [facility], were you homeless or living in a [...] [facility] [address] [place] [address] [facility] 100 [place] [address] Homero Moses MD [address] [place] [address] 09/14/2025 11:30 AM EST Office Visit [facility] [address] [place] [address] Homero Moses MD [address] [place] [address] documented as of this encounter Goals Goal Patient Goal Type Associated Problems Recent Progress Patient-Stated? Author Help patient manage antidepressant medication Care Plan Patient on antidepressant monitoring plan No Michelle December, Baseline PHQ-9 Care Plan Baseline PHQ-9 No Michelle December, documented as of this encounter Procedures Procedure Name Priority Date/Time Associated Diagnosis Comments XR LUMBAR SPINE MIN 4V 08/05/2024 12:55 PM EST documented in this encounter Results * XR LUMBAR SPINE MIN 4V (08/05/2024 12:55 PM EST) Anatomical Region Laterality Modality Other 08/05/2024 12:5 5 PM EST Narrative 08/05/2024 12:57 PM EST [address] [address] XRay Report Signed Patient: GARY HAYNES MR#: [id number] : 1940 Acct:[id number] Age/Sex: 83 / F ADM Date: 08/04/24 Loc: RAD Attending Dr: HOMERO MOSES Ordering Physician: HOMERO MOSES Date of Service: 08/04/24 Procedure(s): XR lumbar spine min 4V Accession Number(s): [id number] cc: HOMERO MOSES [place] [id number] Patient Name: GARY HAYNES MRN: [id number] date: 1940 Sex: F Assigned Patient Location: RAD Current Patient Location: Accession/Order Number: [id number] Exam Date: 08/04/2024 15:18 Report Date: 08/05/2024 12:55 At the request of: HOMERO MOSES Procedure: XR lumbar spine min 4V EXAMINATION: XR lumbar spine min 4V HISTORY: Fall, Lumbosacral Radiculopathy, Right Sided Sciatica COMPARISON: No relevant comparison available. FINDINGS: BONES: Mild dextrocurvature centered at L3. Anterior wedging L1, 15%, age indeterminate. Mild spondylosis. Moderate facet osteoarthropathy DISC SPACES: Moderate diffuse degenerative change PARASPINOUS: Negative. No paraspinous abnormality is seen. OTHER: Negative. XR/XR lumbar spine min 4V IMPRESSION: 15% anterior wedge compression fracture of L1, age indeterminate Moderate degenerative change Electronically authenticated by: ERICK HOLDEN Date: 08/05/2024 12:55 Dictated By: Erick Holden M.D. Signed By: 08/05/24 1257 DD/ 1255 TD/TT: Labor And Delivery Registered Nurse: Procedure Note Radiology, Radiologist, MD - 08/05/2024 [place] [address] XRay Report Signed Patient: GARY HAYNES KMR#: [id number] : 1940cct:[id number] Age/Sex: 83 / FADM Date: 08/04/24 Loc: RAD Attending Dr: HOMERO MOSES Ordering Physician: HOMERO MOSES Date of Service: 08/04/24 Procedure(s): XR lumbar spine min 4V Accession Number(s): [id number] cc: HOMERO MOSES [place] [id number] Patient Name: GARY HAYNES MRN: [id number] date: 1940 Sex: F Assigned Patient Location: RAD Current Patient Location: Accession/Order Number: [id number] Exam Date: 08/04/2024 15:18 Report Date: 08/05/2024 12:55 At the request of: HOMERO MOSES Procedure: XR lumbar spine min 4V EXAMINATION: XR lumbar spine min 4V HISTORY: Fall, Lumbosacral Radiculopathy, Right Sided Sciatica COMPARISON: No relevant comparison available. FINDINGS: BONES: Mild dextrocurvature centered at L3. Anterior wedging L1, 15%, age indeterminate. Mild spondylosis. Moderate facet osteoarthropathy DISC SPACES: Moderate diffuse degenerative change PARASPINOUS: Negative. No paraspinous abnormality is seen. OTHER: Negative. XR/XR lumbar spine min 4V IMPRESSION: 15% anterior wedge compression fracture of L1, age indeterminate Moderate degenerative change Electronically authenticated by: ERICK HOLDEN Date: 08/05/2024 12:55 Dictated By: Erick Holden M.D. Signed By:08/05/24 1257 DD/ 1255 TD/TT: Labor And Delivery Registered Nurse: Homero Moses MD [facility] Final Resu lt documented in this encounter Visit Diagnoses Not on filedocumented in this encounter Additional Health Concerns Active Problems Noted Date Diagnosed Date Patient on antidepressant monitoring plan 2023 Baseline PHQ-9 02/03/2024 documented as of this encounter Care Teams Corporate Quality Engineer Relationship Specialty Start Date End Date Homero Moses MD [address] [address] PCP - Devoted 09/30/20 Homero Moses MD [address] [address] PCP - General Family Medicine 02/11/23 documented as of this encounter
[2025-04-22 19:45] LABS: C. Difficile PCR INCONCLUSIVE
== END 2025-04-22 16:59 | disposition home or self-care (01) ==
LOC: LAB 16:59
PROVIDERS: PCP Family Medicine; Visit Provider Family Medicine
DX: R19.7 Diarrhea, unspecified (principal)
CPT/HCPCS: 87045; 87046; 87427; 87493

== ENCOUNTER 2025-04-28 16:03 | Outpatient (OUT) | payer OTHER, SELFPAY ==
--- OUTSIDE RECORDS SUMMARY | 2025-04-28 15:00 | XMS_ITS | Encounter Summary ---
Author Organization [facility] Address [address] [place] [address] Care Team Providers Care Permit Agent Name Role Phone Homero Mckeon MD Unavailable [phone] Homero Mckeon MD Primary Care Provider + [phone] Reason for Visit * Reason Comments Anxiety Encounter Details Date Type Department Care Team (Late st Contact Info) Description 04/28/2025 3:00 PM EDT Office Visit [facility] 112 [facility] 100 [place] [address] Homero Mckeon MD 112 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 More than 4 times per year [...] Date Recorded Patient Health Questionnaire-2 Score 0 04/28/2025 Exercise Vital Sign Answer Date Recorde d [...] were you homeless or living in a fdc (including now)? No 05/01/2024 Comments No Sex and Gender Information Value Date Recorded Sex Assigned at Not on file Legal Sex Female 8:34 PM EDT Gender Identity Not on file Sexual Orientation Not on file documented as of this encounter Functional Status * Over the past 2 weeks, how often have you been bothered by any of the following problems? Question Answer Date of Assessment Author Little interest or pleasure in doing things Not at all 04/28/2025 3:26 PM EDT Kellen Martinez MA Feeling down, depressed, or hopeless Not at all 04/28/2025 3:26 PM EDT Kellen Martinez MA Patient Health Questionnaire -2 Score 0 04/28/2025 3:26 PM EDT Kellen Martinez MA documented as of this encounter Plan of Treatment Upcoming Encounters Date Type Department Care Team (Late st Contact Info) Description 07/28/2025 11:30 AM EDT Office Visit [facility] [address] [address] Homero Mckeon MD [address] [address] 09/14/2025 11:30 AM EST Office Visit [facility] [address] [address] Homero Mckeon MD [address] [address] Scheduled Orders Name Type Priority Associated Diagnoses Orde r Schedule CBC and differential Lab Routine Chronic night sweats Abdominal pain, unspecified abdominal location Expected: 04/28/2025 (Approximate), Expires: 04/28/2026 Sedimentation rate, automated Lab Routine Chronic night sweats Arthralgia, unspecified joint Expected: 04/28/2025 (Approximate), Expires: 04/28/2026 documented as of this encounter Goals Goal Patient Goal Type Associated Problems Recent Progress Patient-Stated? 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) Overweight Gastroesophageal reflux disease without esophagitis Esophageal reflux Abdominal pain, unspecified abdominal location Diarrhea, unspecified type Arthralgia, unspecified joint documented in this encounter Additional Health Concerns Active Problems Noted Date Diagnosed Date Patient on antidepressant monitoring plan 2023 Baseline PHQ-9 02/03/2024 documented as of this encounter Care Teams Permit Agent Relationship Specialty Start Date End Date Homero Mckeon MD [address] [address] PCP - Devoted 09/30/20 Homero Mckeon MD [address] [address] PCP - General Family Medicine 02/11/23 documented as of this encounter
[2025-04-28 16:17] LABS: Hematocrit 37.2 % (36.0-48.0); Hemoglobin 12.6 g/dL (12.0-16.0); Immature Granulocytes Abs Auto 0.01 10^3/uL (0.00-0.03); Immature Granulocytes Pct Auto 0.2 % (0.0-0.5); Lymphocytes Absolute Auto 2.4 10^3/uL (1.2-3.8); Mean Corpuscular HGB Conc 33.9 g/dL (29.9-35.2); Mean Corpuscular Hemoglobin 32.0 pg (26.7-34.0); Mean Corpuscular Volume 94.4 fL (81.0-99.0); Platelet Count 212 10^3/uL (150-450); Red Blood Count 3.94 10^6/uL (4.20-5.40); White Blood Count 5.9 10^3/uL (4.0-11.0)
--- OUTSIDE RECORDS SUMMARY | 2025-04-30 23:28 | XMS_ITS | Encounter Summary ---
Author Organization [facility] Address [address] [place] [address] Care Team Providers Care Survival Specialist Name Role Phone Homero Mckeon MD Unavailable [phone] Homero Mckeon MD Primary Care Provider + [phone] Encounter Details Date Type Department Care Team (Late st Contact Info) Description 04/13/2025 Results Follow-Up [facility] [place] [address] Family Medicine 112 [facility] 100 [place] [address] Homero Mckeon MD 112 [facility] 100 [place] [address] (Fax) Social History Tobacco Use Types Packs/Day [...] often do you attend chur ch or pentecostalism services? More than 4 times per year [...] any time in the past 12 m [facility], were you homeless or living in a snf (including now)? No 05/01/2024 Comments No Sex and Gender Information Value Date Recorded Sex Assigned at Not on file Legal Sex Female 8:34 PM EDT Gender Identity Not on file Sexual Orientation Not on file documented as of this encounter Plan of Treatment Upcoming Encounters Date Type Department Care Team (Late st Contact Info) Description 07/28/2025 11:30 AM EDT Office Visit [facility] [place] [facility] [address] [place] [address] Homero Mckeon MD [address] [place] [address] (Fax) 09/14/2025 11:30 AM EST Office Visit [facility] [place] 100 Family Medicine [address] [place] [address] Homero Mckeon MD [address] [place] [address] (Fax) documented as of this encounter Goals Goal Patient Goal Type Associated Problems Recent Progress Patient-Stated? Author Help patient manage antidepressant medication Care Plan Patient on antidepressant monitoring plan No Michelle Kellen, [place] Baseline PHQ-9 Care Plan Baseline PHQ-9 No Michelle Kellen, [place] documented as of this encounter Visit Diagnoses Not on filedocumented in this encounter Additional Health Concerns Active Problems Noted Date Diagnosed Date Patient on antidepressant monitoring plan 2023 Baseline PHQ-9 02/03/2024 documented as of this encounter Care Teams Survival Specialist Relationship Specialty Start Date End Date Homero Mckeon MD [address] [place] [address] (Fax) PCP - Devoted 09/30/20 Homero Mckeon MD [address] [place] [address] (Fax) PCP - General Family Medicine 02/11/23 documented as of this encounter
--- OUTSIDE RECORDS SUMMARY | 2025-04-30 23:28 | XMS_ITS | Encounter Summary ---
Author Organization [facility] Address [address] [place] [address] Care Team Providers Care Supply Chain Technician Name Role Phone Homero Mckeon MD Unavailable [phone] Homero Mckeon MD Primary Care Provider + [phone] Encounter Details Date Type Department Care Team (Late st Contact Info) Description 10/10/2023 Abstract [facility] [place] 521 Family Medicine [address] [facility] [facility] [place] [address] Uriel Maloney DO [address] [place] [id number] Social History Tobacco Use Types Packs/Day Years [...] Visit [facility] [place] [facility] 112 [facility] [address] [place] [address] Homero Mckeon MD 112 [facility] 100 [place] [address] (Fax) 09/14/2025 11:30 AM EST Office Visit [facility] [place] [facility] 112 [facility] [address] [place] [address] Homero Mckeon MD 112 [facility] 100 [place] [address] documented as of this encounter Visit Diagnoses Not on filedocumented in this encounter Care Teams Supply Chain Technician Relationship Specialty Start Date End Date Homero Mckeon MD 112 [facility] 100 [place] [address] PCP - Devoted 09/30/20 Homero Mckeon MD 112 [facility] [place] [address] PCP - General Family Medicine 02/11/23 documented as of this encounter
--- OUTSIDE RECORDS SUMMARY | 2025-04-30 23:28 | XMS_ITS | Encounter Summary ---
Author Organization [facility] Address [address] [place] [address] Care Team Providers Care Corporate Director Name Role Phone Homero Mckeon MD Unavailable [phone] Homero Mckeon MD Primary Care Provider + [phone] Reason for Visit * Reason Comments Med Refill Encounter Details Date Type Department Care Team (Late st Contact Info) Description 05/21/2024 Refill [facility] [place] 521 Family Medicine [address] [facility] [place] [address] Homero Mckeon MD [address] [place] [address] (Fax) Recurrent major depressive disorder, in partial [...] often do you attend chur ch or druze services? More than 4 times per year [...] time in the past 12 m [facility], were you homeless or living in a assisted (including now)? No 05/01/2024 Comments No Sex and Gender Information Value Date Recorded Sex Assigned at Not on file Legal Sex Female 8:34 PM EDT Gender Identity Not on file Sexual Orientation Not on file documented as of this encounter Plan of Treatment Upcoming Encounters Date Type Department Care Team (Late st Contact Info) Description 07/28/2025 11:30 AM EDT Office Visit [facility] [place] 100 Family Medicine [address] [place] [address] Homero Mckeon MD [address] [place] [address] (Fax) 09/14/2025 11:30 AM EST Office Visit [facility] [place] 100 Family Medicine [address] [place] [facility] [address] [place] [address] Homero Mckeon MD [address] [place] [address] (Fax) documented as of this encounter Goals Goal Patient Goal Type Associated Problems Recent Progress Patient-Stated? Author Help patient manage antidepressant medication Care Plan Patient on antidepressant monitoring plan No Kellen Martinez, [place] Baseline PHQ-9 Care Plan Baseline PHQ-9 No Kellen Martinez [place] documented as of this encounter Visit Diagnoses Diagnosis Recurrent major depressive disorder, in partial remission documented in this encounter Additional Health Concerns Active Problems Noted Date Diagnosed Date Patient on antidepressant monitoring plan 2023 Baseline PHQ-9 02/03/2024 documented as of this encounter Care Teams Corporate Director Relationship Specialty Start Date End Date Homero Mckeon MD [address] [place] [address] (Fax) PCP - Devoted 09/30/20 Homero Mckeon MD 112 [facility] [address] [place] [address] (Fax) PCP - General Family Medicine 02/11/23 documented as of this encounter
--- OUTSIDE RECORDS SUMMARY | 2025-04-30 23:28 | XMS_ITS | Encounter Summary ---
Author Organization [facility] Address [address] [place] [address] Care Team Providers Care Blueberry Grower Name Role Phone Homero Mckeon MD Unavailable [phone] Homero Mckeon MD Primary Care Provider + [phone] Reason for Visit * Reason Onset Date Comments Results 04/13/2025 Encounter Details Date Type Department Care Team (Late st Contact Info) Description 04/13/2025 Telephone [facility] [place] [facility] 112 [facility] 100 [place] [address] Homero Mckeon MD 112 [facility] 100 [place] [address] (Fax) Results Social History Tobacco Use Types [...] often do you attend chur ch or mormonism services? More than 4 times per year [...] any time in the past 12 m [facility], were you homeless or living in a senior living (including now)? No 05/01/2024 Comments No Sex [...] wait 30 minutes and get pre-reg at [facility] and collect materials to collect the stool [...] 11:30 AM EDT Office Visit [facility] 112 [facility] 100 [place] [address] Homero Mckeon MD 112 [facility] 100 [place] [address] 09/14/2025 11:30 AM EST Office Visit [facility] 112 [facility] [place] [address] Homero Mckeon MD 112 [facility] [place] [address] (Fax) Scheduled Orders Name Type Priority Associated [...] on antidepressant monitoring plan No Michelle Kellen, [place] Baseline PHQ-9 Care Plan Baseline PHQ-9 Kellen Stein [place] documented as of this encounter Visit Diagnoses Diagnosis Diarrhea of presumed infectious origin documented in this encounter Additional Health Concerns Active Problems Noted Date Diagnosed Date Patient on antidepressant monitoring plan 2023 Baseline PHQ-9 02/03/2024 documented as of this encounter Care Teams Blueberry Grower Relationship Specialty Start Date End Date Homero Mckeon MD 112 [facility] [place] [address] PCP - Devoted 09/30/20 Homero Mckeon MD 112 [facility] [place] [address] PCP - General Family Medicine 02/11/23 documented as of this encounter
--- OUTSIDE RECORDS SUMMARY | 2025-04-30 23:28 | XMS_ITS | Encounter Summary ---
Author Organization [facility] Address [address] [place] [address] Care Team Providers Care Service Vehicle Operator Name Role Phone Homero Mckeon MD Unavailable [phone] Homero Mckeon MD Primary Care Provider + [phone] Encounter Details Date Type Department Care Team (Late Contact Info) Description 08/07/2023 Abstract [facility] [place] 521 Family Medicine [address] [facility] [place] [address] Lesli Brown NP Social History Tobacco Use [...] Visit [facility] [place] [facility] [address] [place] [address] Homero Mckeon MD [address] [place] [address] (Fax) 09/14/2025 11:30 AM EST Office Visit [facility] [place] 100 Family Medicine [address] [place] [address] Homero Mckeon MD [address] [facility] [address] [place] [address] documented as of this encounter Visit Diagnoses Not on filedocumented in this encounter Care Teams Service Vehicle Operator Relationship Specialty Start Date End Date Homero Mckeon MD [address] [address] PCP - Devoted 09/30/20 Homero Mckeon MD [address] [address] PCP - General Family Medicine 02/11/23 documented as of this encounter
--- OUTSIDE RECORDS SUMMARY | 2025-04-30 23:28 | XMS_ITS | Encounter Summary ---
Author Organization [facility] Address [address] [place] [address] Care Team Providers Care Weight Loss Counselor Name Role Phone Homero Moses MD Unavailable [phone] Homero Moses MD Primary Care Provider [phone] Encounter Details Date Type Department Care Team (Late st Contact Info) Description 07/22/2024 Clinisync Result Encounter N[facility]S External Department Unsolicited Homero Moses MD 112 [facility] [address] [place] [address] (Fax) Social History Tobacco Use Types Packs/Day [...] often do you attend chur ch or episcopal services? More than 4 times per year [...] any time in the past 12 m [facility], were you homeless or living in [...] 07/28/2025 11:30 AM EDT Office Visit [facility] [place] [facility] 112 [facility] 100 [place] [address] Homero Moses MD [address] [address] 09/14/2025 11:30 AM EST Office Visit [facility] [place] 100 [facility] 112 [facility] 100 [place] [address] Homero Moses MD [address] [address] documented as of this encounter Goals Goal Patient Goal Type Associated Problems Recent Progress Patient-Stated? Author Help patient manage antidepressant medication Care Plan Patient on antidepressant monitoring plan No Michelle December, AMAYA Baseline PHQ-9 Care Plan Baseline PHQ-9 No Kellen Martinez AMAYA documented as of this encounter Procedures Procedure Name Priority Date/Time Associated Diagnosis Comments XR HIP 2 OR 3 VW RIGHT 07/22/2024 3:38 PM EDT documented in this encounter Results * XR hip right 2 or 3 views (07/22/2024 3:38 PM EDT) Anatomical Region Laterality Modality Lower Extremities, Hip Right Radiograp hic Imaging 07/22/2024 3:38 PM EDT Narrative 07/22/2024 3:41 PM EDT [address] [address] XRay Report Signed Patient: GARY HAYNES MR#: [id number] : 1940 Acct:[id number] Age/Sex: 83 / F ADM Date: 07/21/24 Loc: RAD Attending Dr: HOMERO MOSES Ordering Physician: HOMERO MOSES Date of Service: 07/21/24 Procedure(s): XR hip RT min 2V Accession Number(s): [id number] cc: HOMERO MOSES [place] [id number] Patient Name: GARY HAYNES MRN: [id number] date: 1940 Sex: F Assigned Patient Location: RAD Current Patient Location: ER Accession/Order Number: [id number] Exam Date: 07/21/2024 11:45 Report Date: 07/22/2024 [...] Signed By: 07/22/24 1541 DD/ 1538 TD/TT: Hot Worker: Procedure Note Radiology, Radiologist, MD - 07/22/2024 [place] [address] XRay Report Signed Patient: GARY HAYNES KMR#: [id number] : 1940cct:[id number] Age/Sex: 83 / FADM Date: 07/21/24 Loc: RAD Attending Dr: HOMERO MOSES Ordering Physician: HOMERO MOSES Date of Service: 07/21/24 Procedure(s): XR hip RT min 2V Accession Number(s): [id number] cc: HOMERO MOSES [place] [id number] Patient Name: GARY HAYNES MRN: [id number] date: 1940 Sex: F Assigned Patient Location: RAD Current Patient Location: ER Accession/Order Number: [id number] Exam Date: 07/21/2024 11:45 Report Date: 07/22/2024 [...] M.D. Signed By:07/22/24 1541 DD/ 1538 TD/TT: Hot Worker: Homero Moses MD IMG XR PROCEDURES Final Resu lt documented in this encounter Visit Diagnoses Not on filedocumented in this encounter Additional Health Concerns Active Problems Noted Date Diagnosed Date Patient on antidepressant monitoring plan 2023 Baseline PHQ-9 02/03/2024 documented as of this encounter Care Teams Weight Loss Counselor Relationship Specialty Start Date End Date Homero Moses MD [address] [address] PCP - Devoted 09/30/20 Homero Moses MD 112 [address] [place] [address] PCP - General Family Medicine 02/11/23 documented as of this encounter
--- OUTSIDE RECORDS SUMMARY | 2025-04-30 23:28 | XMS_ITS | Encounter Summary ---
Author Organization [facility] Address [address] [place] [address] Care Team Providers Care Coffee Roaster Helper Name Role Phone Homero Mckeon MD Unavailable [phone] Homero Mckeon MD Primary Care Provider + [phone] Reason for Visit * Reason Comments Med Refill Encounter Details Date Type Department Care Team (Late st Contact Info) Description 04/14/2025 Refill [facility] [place] [facility] 112 [facility] 100 [place] [address] Homero Mckeon MD 112 [facility] 100 [place] [address] (Fax) Cerebral atrophy Social History Tobacco Use [...] often do you attend chur ch or yazidi services? More than 4 times per year [...] [address] [place] [address] [place] [address] Homero Mckeon MD [address] [place] [address] (Fax) 09/14/2025 11:30 AM EST Office Visit [facility] [place] [facility] [address] [place] [address] [place] [address] Homero Mckeon MD [address] [place] [address] (Fax) documented as of this encounter Goals Goal Patient Goal Type Associated Problems Recent Progress Patient-Stated? Author Help patient manage antidepressant medication Care Plan Patient on antidepressant monitoring plan No Michelle, December, [place] Baseline PHQ-9 Care Plan Baseline PHQ-9 No Michelle December, [place] documented as of this encounter Visit Diagnoses Diagnosis Cerebral atrophy Unspecified cerebral degeneration documented in this encounter Additional Health Concerns Active Problems Noted Date Diagnosed Date Patient on antidepressant monitoring plan 2023 Baseline PHQ-9 02/03/2024 documented as of this encounter Care Teams Coffee Roaster Helper Relationship Specialty Start Date End Date Homero Mckeon MD [address] [place] [address] (Fax) PCP - Devoted 09/30/20 Hoemro Mckeon MD [address] [place] [address] PCP - General Family Medicine 02/11/23 documented as of this encounter
--- OUTSIDE RECORDS SUMMARY | 2025-04-30 23:28 | XMS_ITS | Encounter Summary ---
Author Organization [facility] Address [address] [place] [address] Care Team Providers Care [employer] Sales Representative Name Role Phone Homero Moses MD Unavailable [phone] Homero Moses MD Primary Care Provider + [phone] Encounter Details Date Type Department Care Team [...] 11:30 AM EDT Office Visit [facility] [place] [facility] [address] [address] Homero Moses MD 112 [facility] 100 [place] [address] (Fax) 09/14/2025 11:30 AM EST Office Visit [facility] [place] [facility] [address] [place] [address] [place] [address] Homero Moses MD 112 [facility] 100 [place] [address] documented as of this encounter Procedures Procedure Name Priority Date/Time Associated Diagnosis Comments XR CERVICAL SPINE 2-3V 07/08/2023 2:01 PM EDT documented in this encounter Results * XR CERVICAL SPINE 2-3V (07/08/2023 2:01 PM EDT) Anatomical Region Laterality Modality Other 07/08/2023 2:01 PM EDT Narrative 07/08/2023 2:01 [place] [address] XRay Report Signed Patient: GARY HAYNES MR#: [id number] : 1940 Acct:[id number] Age/Sex: 82 / F ADM Date: 07/08/23 Loc: LAB Attending Dr: NICHOLE FLAHERTY Ordering Physician: NICHOLE FLAHERTY Date of Service: 07/08/23 Procedure(s): XR cervical spine 2-3V Accession Number(s): [id number] cc: NICHOLE FLAHERTY ; HOMERO MOSES [place] [id number] Patient Name: GARY HAYNES MRN: [id number] date: 1940 Sex: F Assigned Patient Location: LAB Current Patient Location: LAB Accession/Order Number: [id number] Exam Date: 07/08/2023 13:20 Report Date: 07/08/2023 [...] Signed By: 07/08/23 1404 DD/ 140 TD/TT: Porter Baggage: Procedure Note Radiology, Radiologist, MD - 07/08/2023 [place] [address] XRay Report Signed Patient: GARY HAYNES KMR#: [id number] : 1940cct:[id number] Age/Sex: 82 / FADM Date: 07/08/23 Loc: LAB Attending Dr: NICHOLE FLAHERTY Ordering Physician: NICHOLE FLAHERTY Date of Service: 07/08/23 Procedure(s): XR cervical spine 2-3V Accession Number(s): [id number] cc: NICHOLE FLAHERTY ; HOMERO MOSES [place] [address] Patient Name: GARY HAYNES MRN: [id number] date: 1940 Sex: F Assigned Patient Location: LAB Current Patient Location: LAB Accession/Order Number: [id number] Exam Date: 07/08/2023 13:20 Report Date: 07/08/2023 [...] M.D. Signed By:07/08/23 1404 DD/ 1401 TD/TT: Porter Baggage: us Generic External Data Provider [facility] Final Result documented in this encounter Visit Diagnoses Not on filedocumented in this encounter Care Teams [employer] Sales Representative Relationship Specialty Start Date End Date Homero Moses MD [address] [address] PCP - Devoted 09/30/20 Homero Moses MD [address] [address] PCP - General Family Medicine 02/11/23 documented as of this encounter
--- OUTSIDE RECORDS SUMMARY | 2025-04-30 23:28 | XMS_ITS | CCD ---
Author Organization [facility]iniSyut Care Team Providers Care Chronic Condition Nurse Name Role Phone PHYSICIAN, DEFAULT Unavailable Unavailable PHYSICIAN, DEFAULT Unavailable Unavailable Homero Moses Primary Care Provider Shadia Barrera DO Unavailable Homero Moses MD Primary Care Provider HOMERO MOSES Primary Care Physician Unavail able HEMEYER ., DR MESSINA Admitting Unavailable HEMEYER ., DR MESSINA Attending Unavailable HEMEYER ., DR MESSINA Consulting Unavailable HEMEYER ., DR MESSINA Primary Care Unavailable VINCENT, DR ERICK Greer Consulting Unavailable HEMEYER ., [...] Primary Care Unavailable Homero Moses MD Unavailable Homero Moses MD Primary Care Provider Homero Moses MD Primary Care Provider Shadia Barrera OD Unavailable Homero Moses MD Unavailable [phone] Homero Moses MD Primary Care Provider Homero Moses MD Unavailable [phone] Homero Moses MD Primary Care Provider NATHALIE LARIOS Attending Unavailable NATHALIE LARIOS Attending Unavailable RIOJASAldair R Attending Unavailable RIOJAS, Aldair R Attending Unavailable RIOJAS, Aldair R Referring Unavailable RIOJAS, Aldair R Admitting Unavailable RIOJAS, Aldair R Attending Unavailable RIOJAS, Aldair R Admitting Unavailable RIOJAS, Aldair R Attending Unavailable ROBERT, NATHALIE Vickers Attending Unavailable ANAMARIA LARIOS Attending Unavailab le Aldair RIOJAS Attending Unavailable RIOJAS, Aldair R Attending Unavailable HEMEYER, EDWARD J Attending Unavailable HEMEYER, EDWARD J Attending Unavailable HEMEYER, EDWARD J Attending Unavailable HEMEYER, EDWARD J Attending Unavailable HEMEYER, EDWARD J Referring Unavailable HEMEYER, EDWARD J Attending Unavailable HEMEYER, EDWARD J Attending Unavailable HEMEYER, EDWARD J Attending Unavailable HEMEYER, EDWARD J Attending Unavailable HEMEYER, EDWARD J Attending Unavailable TIMARGENTINA AU Attending Unavailable HEMEYER, EDWARD J Referring Unavailable HEMEYER, EDWARD J Attending Unavailable ART AMIN Attending Unavailable HEMEYER, EDWARD J Referring Unavailable HEMEYER, EDWARD J Attending Unavailable TORIE ANN Attending Unavailable HEMEYER, EDWARD J Referring Unavailable KELBLEY, ZOË Attending Unavailable HEMEYER, EDWARD J Referring Unavailable KELBLEY, ZOË Attending Unavailable HEMEYER, EDWARD J Referring Unavailable KELBLEY, ZOË Attending Unavailable HEMEYER, EDWARD J Referring Unavailable HEMEYER, EDWARD J Attending Unavailable HEMEYER, EDWARD J Attending Unavailable Allergies Allergy Classification Reported Allergen(s) Allergy Type Date of Onset Reaction(s) Facility (20 sources) Acetaminophen / oxyCODONE Drug Allergy 8 Mental Status Change [facility] (4 sources) cow milk allergenic extract Drug Allergy 8 Vomiting [facility] (5 sources) Soy protein; Translations: [Soy] Drug Allergy 8 Unknown [facility] (13 sources) Mold Extract; Translations: [Mold] Drug Allergy Unknown (origin) (qualifier value) [facility] (13 sources) Pollen; Translations: [Pollen] Drug allergy Unknown (qualifier value) [facility] (13 sources) Grass; Translations: [Grass] Allergy to substance Unknown (qualifier value) [facility] (13 sources) Milk Products; Translations: [Milk Products] Drug allergy Unknown (qualifier value) [facility] (13 sources) Soy/Soy Products; Translations: [Soy/Soy Products] Drug allergy Unknown (qualifier value) [facility] (1 source) Milk Drug allergy (disorder) [facility] (1 source) Wheat preparation Drug Allergy [facility] (20 sources) Memantine Drug Allergy 3 Other, Tinnitus, GI intolerance [facility] (20 sources) WHEAT DEXTRIN Drug Allergy 3 [facility] (20 sources) Milk-Related Compounds Drug Allergy 3 [facility] (20 sources) Soybean-Containin g Drug Products Drug Allergy 3 [facility] (20 sources) Simvastatin Propensity to adverse reactions 4 Other [facility] Healthcare Work Phone: (10 sources) Rosuvastatin calcium Propensity to adverse reactions 5 [facility] Work Phone: Medications Current Medications Medication Drug Class(es) Dates Sig (Normalized) Sig (Original) [id number] 200 actuat albuterol 0.09 mg/actuat metered dose inhaler (20 sources) beta2-Adrenergic Agonist Start: 11-27-2024 take 2 puff(s) by inhalation once daily as needed for wheezing albuterol HFA 90 mcg/act inhaler Inhale 2 puffs Daily as needed for wheezing 11/27/2024 Active Start: 06-23-2024 End: 06-23-2025 albuterol (2.5 MG/3ML) 0.083 % nebulizer solution Indications: COVID-19 Take 3 mL (2.5 mg) by nebulization every 6 (six) hours if needed for wheezing 75 mL 06/23/2024 06/23/2025 Active aspirin 81 mg oral tablet (20 sources) Platelet Aggregation Inhibitor, Nonsteroidal Anti-inflammatory Drug [...] Active Comment on above: Take by mouth. betamethasone 0.5 mg/ml / clotrimazole 10 mg/ml topical cream (5 sources) Azole Antifungal, Corticosteroid Start: 03-24-20 End: 04-28-20 clotrimazole-betam ethasone (Lotrisone) cream Indications: Dermatitis Apply topically in the morning and before bedtime. 30 g 03/24/2025 04/28/2025 Active biotin 5 mg oral tablet (4 sources) take 1 tablet by mouth once daily biotin 5 mg tab Take 5 mg by mouth once daily. Active Comment on above: Take 5 mg by mouth o nce daily. 12 hr buPROPion hydrochloride 100 mg extended release oral tablet (20 sources) Aminoketone Start: 02-18-20 End: 09-20-20 take 1 tablet by mouth every twelve hours before mealtime buPROPion SR (Wellbutrin SR) 100 MG 12 hr tablet Indications: Recurrent major depressive disorder, in partial remission Take 1 tablet (100 mg) by mouth in the morning. Take before meals. Do not crush, chew, or split. 90 tablet 1 03/24/2025 09/20/2025 Active Start: 08-12-2023 End: 02-08-2024 take 1 [...] TH EVERY DAY IN THE MORNING Calcium (11 sources) Phosphate Binder, Calcium Start: 02-29-2016 take 1 tablet by mouth once daily Calcium 600 D Tab 1 tab(s), Oral, Daily, Refill(s) 0, Prophylaxis Start Date: 02/29/16 Status: Ordered calcium carbonate/vitamin D2 ([id number] ORAL) (4 sources) calcium carbonate/vitamin D2 ([id number]-L ORAL) Take by mouth. Active calcium carbonat e/vitamin D2 (ZYSWPGC-250-L ORAL) Take by mouth. 0 Active Comment on above: Take by mouth. Calcium Citrate (20 sources) CALCIUM CITRATE ORAL Take by mouth. Active take 1 tablet by mouth in the mo rning CALCIUM CITRATE PO Take 1 tablet by mouth in the morning. Active [facility] CALCI[facility] CIT[facility] PO Take 1 tablet by mouth in the morning. 0 Active CALCIUM CITRATE ORAL Take by mouth. 0 Active Comment on above: Take by mouth. cephalexin 500 mg oral capsule (6 sources) Cephalosporin Antibacterial Start: 10-28-2024 take 1 capsule by mouth twice daily Keflex 500 mg Cap 500 mg = 1 cap(s), Oral, BID, Start the day prior to procedure, # 14 cap(s), Refills(s) 0, Pharmacy: [facility]/pharmacy #[id number], 150, cm, 08/18/24 11:17:00 EST, Height/Length Dosing, 64, kg, 08/18/24 11:17:00 EST, Weight Dosing Start Date: 10/28/24 Status: Ordered Start: 09-14-2024 take 1 capsule by [facility] twice daily Keflex 500 mg Cap 500 mg = 1 cap(s), Oral, BID, Start the day prior to procedure, # 14 cap(s), Refills(s) 0, Pharmacy: [facility]/pharmacy #[id number], 150, cm, 08/18/24 11:17:00 EST, Height/Length Dosing, 64, kg, 08/18/24 11:17:00 EST, Weight Dosing Start Date: 09/14/24 Status: Ordered Start: 08-18-2024 take 1 capsule by mo [facility] twice daily Keflex 500 mg Cap 500 mg = 1 cap(s), Oral, BID, Start the day prior to procedure, # 14 cap(s), Refills(s) 0, Pharmacy: [facility]/pharmacy #[id number], 150, cm, 08/18/24 11:17:00 EST, Height/Length Dosing, 64, kg, 08/18/24 11:17:00 EST, Weight Dosing Start Date: 08/18/24 Status: Ordered cholecalciferol 0.025 mg oral capsule (20 sources) Vitamin D take 1 capsule by [...] mouth. donepezil hydrochloride 10 mg oral tablet (20 sources) Start: 02-03-2024 End: 09-20-2025 take 1 tablet by mouth at bedtime donepezil (Aricept) 10 MG tablet Indications: Alzheimer's disease with late onset (CODE) (HCC) Take 1 tablet (10 mg) by mouth at bedtime 90 tablet 1 03/24/2025 09/20/2025 Active Start: 10-09-2023 take 1 tablet by [facility] at bedtime donepezil (Aricept) 10 MG tablet [...] GRAM VAGI JANET THREE TIMES WEEKLY Benita (11 sources) Histamine-1 Receptor Antagonist Start: 02-29-2016 Benita See Instructions, PRN Allergy symptoms, Refills(s) 0 Start Date: 02/29/16 Status: Ordered fexofenadine / Pseudoephedrine (20 sources) alpha-Adrenergic Agonist, Histamine-1 Receptor Antagonist take 1 tablet by mouth once daily, then take 1 tablet by mouth every twenty-four hours Fexofenadine-Pse udoephedrine (BENITA-D 24 HOUR) 180-240 mg per 24 hr tablet Take 1 tablet by mouth once daily. Active take 1 tablet by radha th once daily Fexofenadine-Pseudoephedrine (BENTIA-D 24 HOUR PO) Take 1 tablet by mouth 1 (one) time each day at the same time. Active take 1 tablet by radha th once daily Fexofenadine-Pseudoephedrine (BENITA-D 24 HOUR PO) Take 1 tablet by mouth 1 (one) time each day at the same time. 0 Active Comment on above: Take 1 tablet by radha th once daily. gabapentin 100 mg oral capsule (20 sources) Anti-epileptic Agent Start: 08-20-2024 End: 02-16-2025 take 1 capsule by mouth in the morning gabapentin (Neurontin) 300 MG capsule Indications: Lumbosacral radiculopathy due to degenerative joint disease of spine Take 1 capsule (300 mg) by mouth in the morning and 1 capsule (300 mg) before bedtime. 60 capsule 2 10/06/2024 Active Start: 08-04-2024 End: 10-06-2024 gabapentin (Neurontin) 100 M G capsule Indications: Lumbosacral radiculopathy due to degenerative joint disease of spine For severe pain, take an additional 1 tablet in the evening as needed 30 capsule 2 10/06/2024 Active levoFLOXacin 750 mg oral tablet (2 sources) Quinolone Antimicrobial Start: 12-02-2024 End: 12-09-2024 take 1 tablet by mouth once daily levoFLOXacin (Levaquin) 750 MG tablet Indications: Walking pneumonia Take 1 tablet (750 mg) by mouth Daily for 7 days 7 tablet 12/02/2024 12/09/2024 Active levothyroxine sodium 0.075 mg oral tablet (20 sources) l-Thyroxine Start: 03-24-2025 End: 06-22-2025 take 0.5 tablet by mouth before mealtime levothyroxine (Synthroid, Levoxyl) 75 MCG tablet Indications: Acquired central hypothyroidism Take 0.5 tablets (37.5 mcg) by mouth in the morning. Take before meals. 45 tablet 03/24/2025 06/22/2025 Active Start: 12-09-2024 End: 04-09-2025 take 0.5 tablet by mouth in the morning levothyroxine (Synthroid, Levoxyl) 50 MCG tablet Indications: Acquired central hypothyroidism Take 0.5 tablets (25 mcg) by mouth in the morning and 0.5 tablets (25 mcg) in the evening. Take before meals. 30 tablet 03/10/2025 03/24/2025 Discontinued (Reorder) Start: 08-24-2024 End: 10-15-2024 take 0.5 tablet by mouth in the morning levothyroxine (Synthroid, Levoxyl) 50 MCG tablet Indications: Acquired central hypothyroidism (CMS/HCC) Take 0.5 tablets (25 mcg) by mouth in the morning and 0.5 tablets (25 mcg) in the evening. Take before meals. 30 tablet 09/15/2024 Active Start: 03-17-2024 take 0.5 tablet by m outh in the morning levothyroxine (Synthroid, Levoxyl) 50 [...] Ordered liothyronine sodium 0.005 mg oral tablet (20 sources) l-Triiodothyronine Start: 03-24-2025 liothyronin e (Cytomel) 5 MCG tablet Indications: Euthyroid sick syndrome Take 2 tablet in AM and 1.5 tablet in PM on an empty stomach. AVERY; Sigma or Greenstone brands only 315 tablet 1 03/24/2025 Active Start: 08-24-2024 End: 04-09-2025 take 1.5 tablets by mouth in the morning liothyronine (Cytomel) 5 MCG tablet Indications: Euthyroid sick syndrome Take 1.5 tablets (7.5 mcg) by mouth in the morning and 1.5 tablets (7.5 mcg) in the evening. Take before meals. Greenstone or sigma brand only. 90 tablet 03/10/2025 Active Start: 03-17-2024 take 1.5 tablets by mouth [...] only. 180 tablet 1 08/08/2023 02/04/2024 Active losartan potassium 50 mg oral tablet (20 sources) Angiotensin 2 Receptor Oleg Start: 07-27-2024 End: 08-02-2025 take 1 tablet by mouth once daily losartan (Cozaar) 50 MG tablet Indications: Primary hypertension Take 1 tablet (50 mg) by mouth Daily 90 tablet 1 02/03/2025 08/02/2025 Active Magnesium (4 sources) Magnesium 250 mg tab Take 250 mg by mouth. Active Magnesium 250 mg tab Take 250 mg by mouth. 0 Active Comment on above: Take 250 mg by mouth . Magnesium Oxide (11 sources) Start: 6 magnesium oxide See Instructions, Refills(s) 0, Prophylaxis Start Date: 02/29/16 Status: Ordered meclizine hydrochloride 25 mg oral tablet (20 sources) Antiemetic Start: 3 meclizine (Antivert) 25 MG tablet Indications: Vertigo Take 0.5-2 tablets as needed for vertigo 60 tablet 03/04/2023 Active memantine hydrochloride 5 mg oral tablet (20 sources) S-fyxjrm-B-aspartat e Receptor Antagonist Start: 4 End: 6 take 1 tablet by mouth in the morning memantine (Namenda) 5 MG tablet Indications: Cerebral atrophy Take 1 tablet (5 mg) by mouth in the morning and 1 tablet (5 mg) before bedtime. 180 tablet 1 04/14/2025 10/11/2025 Active 24 hr mirabegron 50 mg extended release oral tablet (1 source) beta3-Adrenergic Agonist Start: 4 take 1 tablet by mouth once daily Myrbetriq 50 mg oral tablet, extended release 50 mg = 1 tab(s), Oral, Daily, # 30 tab(s), Refills(s) 11, Pharmacy: [facility]/pharmacy #[id number], 150, cm, 01/21/24 15:16:00 EDT, Height/Length Dosing, 61.7, kg, 01/21/24 15:16:00 EDT, Weight Dosing Start Date: 01/21/24 Status: Ordered Multi Vitamin+ (11 sources) Start: 1 Multi Vitamin+ Refill(s) 0 Start Date: 12/12/20 Status: Ordered MULTI-VITAMIN ORAL (4 sources) Start: 1 MULTI-VITAMIN ORAL Refill(s) 0 12/12/2020 Active Start: 12-12-2020 MULTI-VITAMIN ORAL Refill(s) 0 0 12/12/2020 Active Comment on above: Refill(s) 0 multivitamin (Theragran) tablet (20 sources) take 2 tablets by mouth in the morning multivitamin (Theragran) tablet Take 2 tablets by mouth in the morning. Active take 2 tablets by mouth in the m orning multivitamin (Theragran) tablet Take 2 tablets by mouth in the morning. 0 Active nabumetone 750 mg oral tablet (17 sources) Nonsteroidal Anti-inflammatory Drug Start: 07-21-2024 End: 08-20-2024 take 1 tablet by mouth in the morning nabumetone (Relafen) 750 MG tablet Indications: Lumbosacral radiculopathy at L5 , Lumbosacral radiculopathy at S1 , Acute pain of right foot Take 1 tablet (750 mg) by mouth in the morning and 1 tablet (750 mg) before bedtime. 60 tablet 07/21/2024 08/20/2024 Active Nebulizers (Compressor/Neb ulizer) misc (20 sources) Start: 06-23-2024 Nebulizers (Compressor/Nebulize r) misc Indications: COVID-19 Use 4 times per day and PRN SOB/wheezing 1 each 06/23/2024 Active omeprazole 40 mg delayed release oral capsule (20 sources) Proton Pump Inhibitor Start: 03-04-2024 End: 10-25-2025 take 1 capsule by mouth before mealtime omeprazole (PriLOSEC) [address] capsule Indications: Gastroesophageal reflux disease without esophagitis Take 1 capsule (40 mg) by mouth in the morning. Take before meals. 04/28/2025 10/25/2025 Active Start: 08-12-2023 End: 02-08-2024 take 1 capsule by mouth in the morning omeprazole (PriLOSEC) [address] capsule Indications: Gastroesophageal reflux disease without esophagitis Take 1 capsule (40 mg) by mouth in the morning and 1 capsule (40 mg) in the evening. Take before meals. 180 capsule 1 08/12/2023 02/08/2024 Active Start: 02-29-2016 take 1 capsule by [facility] once daily omeprazole 20 mg Cap-EC [...] Active PARoxetine hydrochloride 20 mg oral tablet (20 sources) Serotonin Reuptake Inhibitor Start: 02-29-2016 End: 10-25-2025 take 1 tablet by mouth in the evening PARoxetine (Paxil) 20 MG tablet Indications: Recurrent major depressive disorder, in partial remission Take 1 tablet (20 mg) by mouth in the evening 90 tablet 1 04/28/2025 10/25/2025 Active Comment on above: Take 20 mg by mouth once daily. polyethylene glycol 3350 [id number] mg powder for oral solution (17 sources) Osmotic Laxative End: 07-27-2024 polyethylene glycol, PEG, 3350 (Glycolax) 17 GM/SCOOP powder Take 17 g by mouth Daily Active predniSONE 10 mg oral tablet (20 sources) Start: 08-04-2024 End: 09-10-2024 predniSONE (Deltasone) 10 MG tablet Indications: Lumbosacral radiculopathy at L5 Every 2 day tapering dose; 5,5,4,4,3,3,2,2,1,1 ,0.5,0.5 31 tablet 08/04/2024 09/10/2024 Discontinued (Therapy completed) Start: 07-21-2024 End: 07-27-2024 take 2 tablets by mouth once daily predniSONE (Deltasone) 20 MG tablet Indications: Lumbosacral radiculopathy at L5 , Lumbosacral radiculopathy at S1 , Acute pain of right foot Take 2 tablets (40 mg) by mouth Daily for 5 days 10 tablet 07/21/2024 07/27/2024 raNITIdine 150 mg oral tablet (4 sources) Histamine-2 Receptor Antagonist Start: 11-12-2017 ranitidine (ZANTAC) 150 mg tablet Indications: Malignant neoplasm of right breast in female, estrogen receptor positive, unspecified site of breast (HCC) 150 mg once daily. DIRECTED 2 11/12/2017 Active Comment on above: 150 mg once daily. A S DIRECTED rosuvastatin calcium 5 mg oral tablet (2 sources) HMG-CoA Reductase Inhibitor Start: 02-03-2025 End: 03-05-2025 take 1 tablet by mouth in the evening rosuvastatin (Crestor) 5 MG tablet Indications: Mixed dyslipidemia (CMS/HCC) Take 1 tablet (5 mg) by mouth in the evening 30 tablet 02/03/2025 03/05/2025 Active simvastatin 10 mg oral tablet (20 sources) HMG-CoA Reductase Inhibitor Start: 02-29-2016 End: 08-31-2024 take 1 tablet by mouth once daily [...] Daily, # 90 caplet(s), Refills(s) 3, Pharmacy: [id number], 150, cm, 01/16/23 15:30:00 [...] TO 2 TABLETS DAILY TOLERATING SIDE EFFECTS Spacer/Aero-Holding Chambers [facility] ([facility] Start: Spacer/Aero-Holding Chambers (Pro Comfort Spacer Adult) [facility] Indications: Walking pneumonia Use with HFA spacer. May substitute with any brand. 1 each 12/02/2024 Active sucralfate 1000 mg oral tablet (20 sources) Aluminum Complex take 1 tablet by [...] tablet twice a day by oral route. sulfamethoxazole 800 mg / trimethoprim 160 mg oral tablet (1 source) Dihydrofolate Reductase Inhibitor Antibacterial, Sulfonamide Antimicrobial Start: 09-15-20 End: 09-22-20 Bactrim D.S. 800 mg-160 mg Tab 1 tab(s), Oral, BID for 7 day(s), 14 tab(s), Refill(s) 0, [facility]/pharmacy #[id number], 150, cm, 08/18/24 11:17:00 EST, Height/Length Dosing, 64, kg, 08/18/24 11:17:00 EST, Weight Dosing Start Date: 09/15/24 Stop Date: 09/22/24 Status: Ordered thyroid (detention) 60 mg oral tablet (4 sources) take 1 tablet by mouth twice daily thyroid, pork, (STAINED GLASS PAINTER THYROID) 60 mg STAINED GLASS PAINTER Thyroid 60 mg tablet TAKE 1 TABLET BY MOUTH TWICE A DAY ON EMPTY STOMACH Active Comment on above: STAINED GLASS PAINTER Thyroid 60 mg tab let TAKE 1 TABLET BY MOUTH TWICE A DAY ON EMPTY STOMACH traMADol hydrochloride 50 mg oral tablet (3 sources) Opioid Agonist Start: 10-06-19 End: 11-05-19 take 1 tablet by mouth every eight hours for pain traMADol (Ultram) 50 MG tablet Indications: Chronic pain syndrome , Controlled substance agreement signed , Medication monitoring encounter Take 1 tablet (50 mg) by mouth every 8 (eight) hours if needed for moderate pain 90 tablet 10/06/2024 11/05/2024 Active Start: 09-15-2024 End: 09-22-2024 take 1-2 tablets by mouth every eight hours for pain traMADol (Ultram) 50 MG tablet Indications: Chronic pain syndrome Take 1-2 tablets (50-100 mg) by mouth every 8 (eight) hours if needed for moderate pain for up to 7 days 40 tablet 09/15/2024 09/22/2024 Active traZODone hydrochloride 100 mg oral tablet (20 sources) Serotonin Reuptake Inhibitor Start: 01-28-2025 End: 05-23-2025 take 1 tablet by mouth at bedtime traZODone (Desyrel) 100 MG tablet Indications: Sleep initiation disorder Take 1 tablet (100 mg) by mouth at bedtime Keep on file as refill 30 tablet 03/24/2025 05/23/2025 Active Start: 08-10-2024 End: 01-20-2025 take 1 tablet by mouth at bedtime traZODone (Desyrel) 100 MG tablet Indications: Sleep initiation disorder Take 1 tablet (100 mg) by mouth at bedtime Keep on file as refill 90 tablet 10/22/2024 01/20/2025 Active End: 08-10-2024 take 2 tablets by mouth at bedtime traZODone (Desyrel) 50 MG tablet Take 100 mg by mouth at bedtime 08/10/2024 Discontinued (Reorder) verapamil hydrochloride 240 mg extended release oral tablet (20 sources) Calcium Channel Oleg Start: 03-04-2024 End: 02-06-2025 take 1 tablet by mouth once daily verapamil SR (Calan SR) 240 MG ER tablet Indications: Primary hypertension Take 1 tablet (240 mg) by mouth Daily 90 tablet 1 02/03/2025 Active Start: 08-12-2023 End: 02-08-2024 take 1 tablet by mouth once daily verapamil SR (Calan SR) 240 MG ER tablet Indications: Primary hypertension (CMS/HCC) Take 1 tablet (240 mg) by mouth 1 (one) time each day at the same time. 90 tablet 1 08/12/2023 02/08/2024 Active Start: 02-29-2016 take 1 capsule by [facility] once daily verapamil 240 mg Cap-ER [...] Ordered Vitamin C 1000 mg oral tablet (11 sources) Start: 02-29-2016 Vitamin C 1000 mg oral tablet See Instructions, Refills(s) 0, Prophylaxis Start Date: 02/29/16 Status: Ordered Vitamin D3 1000 intl units oral capsule (11 sources) Start: 02-29-2016 Vitamin D3 1000 intl [...] hydrochloride 0.137 mg/actuat metered dose nasal spray (15 sources) Histamine-1 Receptor Antagonist End: 07-14-2024 azelastine [...] DAY PRN ciprofloxacin 250 mg oral tablet (7 sources) Quinolone Antimicrobial Start: 05-14-20 take 1 tablet by mouth once daily Cipro 250 mg Tab 250 mg = 1 tab(s), Oral, Daily, Take 1 tablet the day before the procedure and 1 tablet after the procedure, # 2 tab(s), Refills(s) 0, Pharmacy: [facility]/pharmacy #[id number], 150, cm, 03/24/24 14:02:00 EDT, Height/Length Dosing, 64, kg, 03/24/24 14:02:00 EDT, Weight Dosing Start Date: 05/14/24 Status: Ordered ipratropium bromide 0.042 mg/actuat metered dose nasal spray (20 sources) Anticholinergic Start: 07-14-20 End: 08-13-20 take 2 spray(s) nasal route in the morning ipratropium (Atrovent) 0.06 % nasal spray Indications: Rhinorrhea Administer 2 sprays into each nostril in the morning and 2 sprays before bedtime. 15 mL 1 07/14/2024 07/27/2024 Discontinued (Therapy completed) Nirmatrelvir&Ritonavi r 300/100 (Paxlovid, 300/100,) 20 x 150 MG & 10 x 100MG tablet therapy pack (3 sources) Start: 06-15-20 End: 06-23-20 take 3 tablets by mouth in the morning Nirmatrelvir&Ritona vir 300/100 (Paxlovid, 300/100,) 20 x 150 MG & 10 x 100MG tablet therapy pack Indications: Infection caused by 2019 Novel Coronavirus Take 3 tablets by mouth in the morning and 3 tablets before bedtime. 1 each 06/15/2024 06/23/2024 Discontinued (Other) Start: 06-15-2024 take 3 tablets by mo uth in the morning Nirmatrelvir&Ritonavir 300/100 (Paxlovid , 300/100,) 20 x 150 MG & 10 x 100MG tablet therapy pack Indications: Infection caused by 2019 Novel Coronavirus Take 3 tablets by mouth in the morning and 3 tablets before bedtime. 1 each 06/15/2024 Active 24 hr oxybutynin chloride 5 mg extended release oral tablet (1 source) Cholinergic Muscarinic Antagonist End: 07-13-2021 take 1 tablet by mouth twice daily oxybutynin XL (DITROPAN XL) 5 mg 24 hr tablet Take 5 mg by mouth twice daily. 07/13/2021 Discontinued (Changing Therapy/Dosage Form) sodium chloride 9 mg/ml inhalation solution (9 sources) Start: 06-23-2024 End: 07-27-2024 sodium chloride (Broncho Saline) 0.9 % aerosol solution Indications: COVID-19 Inhale 1 spray 3 (three) times a day as needed for shortness of breath 90 mL 06/23/2024 07/27/2024 Discontinued (Therapy completed) Strontium (3 sources) STRONTIUM [id number] ORAL Take by mouth. 0 Active Comment on above: Take by mouth. Problems Active Problems Problem Classification Problem Date Documented Da te Episodic/Chronic Abdominal hernia (11 sources) Hiatal hernia 12-05-2020 Episodic Acute and chronic tonsillitis (4 sources) Enlarged tonsil; Translations: [Hypertrophy of tonsils] 07-15-2024 Chronic Allergic reactions (4 sources) Inflammatory dermatosis; Translations: [Dermatitis, unspecified] 03-26-2025 Episodic Blindness and vision defects (1 source) Diplopia; Translations: [Diplopia] 04-28-2021 Episodic Cancer of breast (20 sources) Malignant neoplasm of lower-outer quadrant of female breast; Translations: [Malignant neoplasm of lower-outer quadrant of right female breast] Onset: 8 Chronic Congestive heart failure; nonhypertensive (20 sources) Chronic diastolic heart failure; Translations: [Chronic diastolic (congestive) heart failure] Onset: 3 03-04-2023 Chronic Coronary atherosclerosis and other heart disease (20 sources) Coronary arteriosclerosis; Translations: [Coronary atherosclerosis] Onset: 3 12-05-2020 Chronic Delirium, dementia, and amnestic and other cognitive disorders (20 sources) Vascular dementia ; Translations: [Moderate vascular dementia with psychotic disturbance] Onset: 3 05-20-2023 Chronic Diseases of white blood cells (20 sources) Granulomatous disorder; 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] Onset: 3 03-04-2023 Chronic Disorders of lipid metabolism (20 sources) Hyperlipidemia; Translations: [Mixed hyperlipidemia] Onset: 6 Resolved: 3 12-05-2020 Chronic E Codes: Fall (9 sources) Fall; Translations: [Unspecified fall, initial encounter] 07-21-2024 Episodic E Codes: Fall (2 sources) Fall 08-07-2024 Endometriosis (11 sources) Endometriosis (clinical) 12-05-2020 Chronic Esophageal disorders (20 sources) Gastroesophageal reflux disease; Translations: [Gastroesophageal reflux disease without esophagitis] Onset: 3 12-05-2020 Chronic Essential hypertension (20 sources) Essential (primary) hypertension; Translations: [Essential hypertension] Onset: 2 03-04-2023 Chronic Genitourinary symptoms and ill-defined conditions (20 sources) Mixed incontinence; Translations: [Incontinence without sensory awareness] Onset: 3 Chronic Genitourinary symptoms and ill-defined conditions (20 sources) Urgent desire to urinate; Translations: [Urgency of urination] Onset: 3 Episodic Hepatitis (20 sources) Hepatic granuloma; 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, not elsewhere classified] Onset: 3 03-04-2023 Chronic Malaise and fatigue (20 sources) Chronic fatigue, unspecified; Translations: [Fatigue] Onset: 2 Chronic Menopausal disorders (20 sources) Atrophic vaginitis; Translations: [Postmenopausal atrophic vaginitis] Onset: 3 03-04-2023 Chronic Mood disorders (20 sources) Depressive disorder; Translations: [Recurrent major depression in partial remission] Onset: 3 12-05-2020 Chronic Mycoses (11 sources) Histoplasmosis 12-05-2020 Episodic Nutritional deficiencies (20 sources) Vitamin D deficiency; Translations: [Vitamin D deficiency, unspecified] Onset: 3 03-04-2023 Chronic Osteoporosis (20 sources) Senile osteoporosis; Translations: [Age-related osteoporosis without current pathological fracture] Onset: 1 Chronic Other aftercare (2 sources) Patient encounter status; Translations: [Encounter for therapeutic drug level monitoring] 10-06-2024 Episodic Other aftercare (2 sources) Polypharmacy ; Translations: [Other heel seat laster (current) drug therapy] 10-18-2024 Episodic Other and unspecified benign neoplasm (20 sources) Intracranial meningioma; Translations: [Benign neoplasm of cerebral meninges] Onset: 3 03-04-2023 Chronic Other connective tissue disease (2 sources) Muscle pain; Translations: [Myalgia, other site] 07-14-2024 Episodic Other connective tissue disease (2 sources) Foot pain; Translations: [Pain in right foot] 07-21-2024 Episodic Other diseases of bladder and urethra (20 sources) Overactive bladder; Translations: [Overactive bladder] Onset: 3 03-04-2023 Chronic Other gastrointestinal disorders (1 source) Complete fecal incontinence; Translations: [Full incontinence of feces] 04-12-2025 Episodic Other hereditary and degenerative nervous system conditions (20 sources) Cerebral atrophy; Translations: [Degenerative disease of nervous system, unspecified] Onset: 3 05-20-2023 Chronic Other infections; including parasitic (2 sources) Post-viral disorder; Translations: [[id number] condition] 07-14-2024 Chronic Other nervous system disorders (11 sources) Carpal tunnel syndrome 12-05-2020 Chronic Other nervous system disorders (2 sources) Disorder of right sciatic nerve 08-07-2024 Chronic Other nervous system disorders (20 sources) Chronic pain syndrome; Translations: [Chronic pain syndrome] Onset: 4 09-10-2024 Chronic Other nervous system disorders (10 sources) Disorder of muscle; Translations: [Myopathy, unspecified] Onset: 5 02-16-2025 Chronic Other non-traumatic joint disorders (2 sources) Hip pain; Translations: [Pain in right hip] 07-21-2024 Episodic Other upper respiratory disease (20 sources) Allergic rhinitis; Translations: [Allergic rhinitis, unspecified] Onset: 3 03-04-2023 Chronic Other upper respiratory disease (2 sources) Nasal discharge; Translations: [Other specified disorders of nose and nasal sinuses] 07-14-2024 Episodic Other upper respiratory disease (2 sources) Other diseases of pharynx; Translations: [Other diseases of pharynx, not elsewhere classified] 07-27-2024 Episodic Peripheral and visceral atherosclerosis (20 sources) Atherosclerosis of aorta; Translations: [Atherosclerosis of aorta] Onset: 4 09-10-2024 Chronic Pneumonia (except that caused by tuberculosis or sexually transmitted disease) (2 sources) Atypical pneumonia; Translations: [Pneumonia, unspecified organism] 12-02-2024 Episodic Prolapse of female genital organs (13 sources) Cystocele; Translations: [Cystocele, unspecified] Onset: 4 12-05-2020 Chronic Residual codes; unclassified (20 sources) Obstructive sleep apnea syndrome; Translations: [Obstructive sleep apnea (adult) (pediatric)] Onset: 3 03-04-2023 Chronic Residual codes; unclassified (20 sources) Periodic limb movement disorder; Translations: [Periodic limb movement disorder] Onset: 3 03-04-2023 Chronic Residual codes; unclassified (20 sources) Slow respiration; Translations: [Sleep apnea, unspecified] Onset: 3 03-04-2023 Chronic Residual codes; unclassified (20 sources) Initial insomnia; Translations: [Other insomnia] Onset: 4 08-10-2024 Chronic Residual codes; unclassified (14 sources) Periodic leg movements of sleep ; Translations: [Periodic limb movement disorder] Onset: 3 03-04-2023 Chronic Spondylosis; intervertebral disc disorders; other back problems (20 sources) Lumbosacral spondylosis with radiculopathy; Translations: [Other spondylosis with radiculopathy, lumbosacral region] Onset: 4 09-10-2024 Chronic Spondylosis; intervertebral disc disorders; other back problems (20 sources) Lumbosacral radiculopathy; Translations: [Radiculopathy, lumbosacral region] 07-21-2024 Episodic Spontaneous (11 sources) Miscarriage 12-05-2020 Episodic Thyroid disorders (20 sources) Hypothyroidism; Translations: [Other specified hypothyroidism] Onset: 2 12-05-2020 Chronic Unclassified (20 sources) Patient on antidepressant monitoring plan Onset: 4 02-03-2024 Unclassified (20 sources) Baseline PHQ-9 Onset: 4 02-03-2024 Unclassified (4 sources) Extended spectrum beta-lactamase producing bacteria carrier Onset: 4 09-15-2024 Comment on above: ESBL E coli in urine 09/10/2024 Viral infection (2 sources) Disease caused by 2019-nCoV; Translations: [COVID-19] 06-23-2024 Episodic Past or Other Problems Problem Classification Problem Date Documented Da te Episodic/Chronic Cancer of breast (1 source) Personal history of malignant neoplasm of breast; Translations: [PERS HX MALIGNANT NEOPLASM BREAST] Onset: 2 Episodic Other aftercare (1 source) Other detention (current) drug therapy; Translations: [OTH IDEA WORKER CURRENT DRUG THERAPY] Onset: 2 Episodic Other aftercare (20 sources) Drug therapy finding; Translations: [Other heel seat laster (current) drug therapy] Onset: 5 10-06-2024 Episodic Other and unspecified benign neoplasm (20 sources) Gastric polyp; Translations: [Polyp of stomach and duodenum] Onset: 3 03-04-2023 Episodic Other bone disease and musculoskeletal deformities (20 sources) Osteopenia; Translations: [Other specified disorders of bone density and structure, other site] Onset: 2 01-11-2022 Episodic Other connective tissue disease (3 sources) Other specified soft tissue disorders; Translations: [OTHER SPEC SOFT TISSUE DISORDERS] Onset: 2 Episodic Other connective tissue disease (20 sources) Myalgia caused by statin; Translations: [Myalgia, unspecified site] Onset: 4 08-03-2024 Episodic Other fractures (20 sources) Closed fracture lumbar vertebra, wedge ; Translations: [Wedge compression fracture of first lumbar vertebra, initial encounter for closed fracture] Onset: 4 09-10-2024 Episodic Other gastrointestinal disorders (20 sources) Chronic constipation; Translations: [Other constipation] Onset: 3 03-04-2023 Episodic Other nervous system disorders (20 sources) White matter disease; Translations: [White matter disease, unspecified] Onset: 3 03-04-2023 Episodic Other nutritional; endocrine; and metabolic disorders (20 sources) Overweight; Translations: [Overweight] Onset: 3 03-04-2023 Episodic Other screening for [...] DIGESTIV ORGN] Onset: 2 Episodic Thyroid disorders (20 sources) Sick-euthyroid syndrome; Translations: [Sick-euthyroid syndrome] Onset: 2 12-05-2020 Episodic Results Test Name Value Interpretation Reference Range Facility ALL CBC WITH AUTO DIFFon BASOPHILS ABSOLUTE AUTO [facility] Basophils/100 WBC (Bld) 0.3 % 0.2 - 2.0 % [facility] Eosinophils/100 WBC (Bld) 3 % 0. 9 - 7.0 % [facility] Erythrocyte distribution width (RBC) [Ratio] 13.1 % 11.0 - 15.0 % [facility] Hematocrit (Bld) [Volume fraction] 37.2 % 36.0 - 48.0 % [facility] Hemoglobin (Bld) [Mass/Vol] 12.6 g/dL 12.0 - 16.0 g/dL [facility] IMMATURE GRANULOCYTES ABS AUTO 0.01 [facility] Immature granulocytes/100 WB C (Bld) 0.2 % 0.0 - 0.5 % [facility] Interpretation and review of laboratory results Abnormal [facility] LYMPHOCYTES ABSOLUTE AUTO 2.4 [facility] Lymphocytes/100 WBC (Bld) 40.8 % 20 .5 - 60.0 % [facility] MCH (RBC) [Entitic mass] 32 pg 26. 7 - 34.0 pg [facility] MCHC (RBC) [Mass/Vol] 33.9 g/dL 29.9 - 35.2 g/dL [facility] MCV (RBC) [Entitic vol] 94.4 fL 81.0 - 99.0 fL [facility] MONOCYTES ABSOLUTE AUTO 0.4 [facility] Monocytes/100 WBC (Bld) 7.4 % 1.7 - 12.0 % [facility] NEUTROPHILS ABSOLUTE AUTO 2.9 [facility] Neutrophils/100 WBC (Bld) 48.3 % 43 .0 - 75.0 % [facility] Platelet mean volume (Bld) [Entitic vol] 9.7 fL 9.5 - 13.5 fL [facility] TBH EO # 0.2 [facility] PLT 212 [facility] RBC 3.94 Low [facility] WBC 5.9 [facility] C. DIFFICILE PCRon 5 C. DIFFICILE PCR Inconclusive [facility] XR ABDOMEN 2 VIEWon 04-13-20 25 XR ABDOMEN 2 VIEW EXAMINATION: XR ABDOMEN 2 VIEW HISTORY: new [...] and both hips no acute osseous abnormality. IMPRESSION: Nonobstructive bowel gas pattern. Stool throughout the colon may represent constipation. ELECTRONICALLY SIGNED BY: Brenda Cornejo, DO Normal Not Available T3 REVERSE, LC/MS/MSon 03-20 T3 REVERSE, LC/MS/MS 16 ng/dL Normal 8-25 Ques t Diagnostics Comment on above: Result Comment: This test was developed and its analytical performance characteristics have been determined by [facility] [place], [place]. It has not been cleared or approved by the U.S. Food and Drug Administration. This assay has been validated pursuant to the CLIA regulations and is used for clinical purposes. Performed By: #### 9 [id number] #### [facility]/[address] [place], [place] Video Game Designer: Aldair Johansen M.D.,PhD #### [phone] [id number] [phone] #### [facility] [address], [address] [place] [address] Video Game Designer: Eliezer Cates MD T3, FREEon 03-20-2025 Free T3 [Mass/Vol] 3.3 pg/mL Normal 2.3-4.2 [facility] Comment on above: Performed By: #### 9 [id number] #### [facility]/[address] [place] Video Game Designer: Aldair Johansen M.D.,PhD #### [phone] [id number] [phone], [phone] #### [facility] [address], [address] [place] [address] Video Game Designer: Eliezer Cates MD T3, TOTALon 03-20-2025 T3, TOTAL 106 ng/dL Normal 76-181 [facility] Comment on above: Performed By: #### 9 [id number] #### [facility]/[place] [id number] [facility] [place] Video Game Designer: Aldair Johansen M.D.,PhD #### [phone] [id number] [phone], [phone] #### [facility] [place] [address] Video Game Designer: Eliezer Cates MD T4, FREE 03-20-2025 Free T4 [Mass/Vol] 1.1 ng/dL Normal 0.8-1.8 [facility] Comment on above: Performed By: #### 9 [id number] #### [facility]/[address] [place] Video Game Designer: Aldair Johansen M.D.,PhD #### [phone] [id number] [phone], [phone] #### [facility] [place] [address] Video Game Designer: Eliezer Cates MD TSH 03-20-2025 TSH Qn 0.54 m[IU]/L Normal 0.40-4.50 [facility] Comment on above: Performed By: #### 9 [id number] #### [facility]/[address] [place] Video Game Designer: Aldair Johansen M.D.,PhD #### [phone], [id number] [phone], [phone] #### [facility] [place] [address] Video Game Designer: Eliezer Cates MD ALL LIPID PROFILE (FASTING)o n 01-29-2025 CHOL HDL RATIO 3.2 [facility] Comment on above: 3.3 - 4.4 LOW RISK 4.4 - 7.1 AVERAGE RISK 7.1 - 11.0 MODERATE RISK >11.0 HIGH RISK Cholesterol [Mass/Vol] 324 mg/dL High NINF - 200 mg/dL [facility] Cholesterol in HDL [Mass/Vol] 101 mg/dL High 40 - 60 mg/dL [facility] Comment on above: > or =60 mg/dl - LOW CARDIOVASCULAR RISK <40 mg/dl - HIGH CARDIOVASCULAR RISK Magnesium [Mass/Vol] 212 mg/dL [facility] Comment on above: <100 mg/dl OPTIMAL 100-129 mg/dl NEAR OR ABOVE OPTIMAL 130-159 mg/dl BORDERLINE HIGH 160-189 mg/dl HIGH >190 mg/dl VERY HIGH Magnesium [Mass/Vol] 11.2 mg/dL [facility] Triglyceride [Mass/Vol] 56 mg/dL NINF - 150 mg/dL [facility] CCF CMP (CMP) (FOR REMOTE FH C USE)on 01-29-2025 Albumin [Mass/Vol] 3.4 g/dL 3.4 - 5.0 g/dL [facility] ALBUMIN GLOBULIN RATIO 0.9 NO [facility] ALP [Catalytic activity/Vol] 53 U/L 46 - 116 U/L [facility] ALT [Catalytic activity/Vol] 19 U/L 14 - 59 U/L [facility] Anion gap [Moles/Vol] 9.5 mmol/L [facility] AST [Catalytic activity/Vol] 10 U/L Low 15 - 37 U/L [facility] Bilirubin [Mass/Vol] 0.3 mg/dL 0.2 - 1 .0 mg/dL [facility] Calcium [Mass/Vol] 9.2 mg/dL 8.5 - 10. 1 mg/dL [facility] Chloride [Moles/Vol] 105 mmol/L 98 - 10 7 mmol/L [facility] CO2 [Moles/Vol] 32.1 mmol/L High 21.0 - 32.0 mmol/L [facility] Creatinine [Mass/Vol] 0.85 mg/dL 0.55 - 1.02 mg/dL [facility] GFR/1.73 sq M.predicted CKD-EPI (S/P/Bld) [Vol rate/Area] >60 >=60 mL/min/1.7 3m 2 [facility] Globulin (S) [Mass/Vol] 3.6 g/dL [facility] Glucose [Mass/Vol] 93 mg/dL 74 - 106 mg/dL [facility] Potassium [Moles/Vol] 4.6 mmol/L 3.5 - 5.1 mmol/L [facility] Protein [Mass/Vol] 7 g/dL 6.4 - 8.2 g/dL [facility] Sodium [Moles/Vol] 142 mmol/L 136 - 145 mmol/L [facility]H EGFR-NON AF CUBAN >60 >=6 0 mL/min/1.7 3m 2 [facility] Urea nitrogen [Mass/Vol] 22 mg/dL High 7.0 - 18.0 mg/dL [facility] Urea nitrogen/Creatinine [Mass ratio] 25.9 mg/mg [facility] No Panel Informationon 01-29 Interpretation and review of laboratory results Abnormal [facility] Drugs of abuse panel Screen (U)on 10-06-2024 Amphetamines Ql (U) Negative [facility] Barbiturates Ql (U) Negative [facility] Benzodiazepines Ql (U) Negative [facility] Benzoylecgonine Ql (U) Negative [facility] Carboxy tetrahydrocannabinol (Mec) [Mass/Mass] Negative [facility] Interpretation and review of laboratory results Normal [facility] Methadone (U) [Mass/Vol] Negative [facility] Methylenedioxymethamphetamin e Screen Ql (U) Negative [facility] Morphine (U) [Mass/Vol] Negative [facility] Opiates Ql (U) Negative [facility] oxyCODONE Ql (U) Negative [facility] Phencyclidine Ql (U) Negative [facility] Reference Lab Test ID Negative [facility] Tricyclic antidepressants [Mass/Vol] Negative [facility] C Urineon 09-14-2024 Bacteria identified [facility] (U) Microbiology PROCEDURE: Urine Culture [R1] SOURCE: U Random BODY SITE: COLLECTED DATE/TIME: 09/10/2024 16:11 EST RECEIVED DATE/TIME: 09/11/2024 17:47 EST START DATE/TIME: 09/11/2024 17:47 EST FREE TEXT SOURCE: SHINE COSTELLO, Aldair RIOJAS MD, Aldair West FINAL REPORTS Final Report [] Verified Date/Time: 09/14/2024 11:05 EST >100,000 cfu/ml Escherichia coli ESBL SUSCEPTIBILITY RESULTS LEGEND: S=Susceptible, N/R=Not Reported, Blank=Data not available, or drug not advisable or tested, I=Intermediate, ESBL=Extended spectrum beta-lactamase, R=Resistant, TFG=Thymidine-depen dent strain, KRISTIAN=Beta-lactamase positive, STANLEY=mcg/m;(mg/L), S*=Predicted susceptible interp, R*=Predicted resistant interp ECESBL Antibiotic STANLEY Dilutn STANLEY Interp Ampicillin >16 R* Ampicillin/ 16/8 I Sulbactam Aztreonam >16 ESBL Cefazolin >16 R* Cefepime >16 R* Ceftazidime >16 ESBL Ceftazidime/ <=8 S Avibactam Ceftriaxone >2 ESBL Cefuroxime >16 R* Ciprofloxacin >2 R Ertapenem <=0.5 S Gentamicin >8 R Levofloxacin >4 R Meropenem <=1 S Nitrofurantoin 64 I Piperacillin/ <=8 S Tazobactam Tetracycline >8 R Tobramycin 4 S Trimethoprim/ <=2/38 S Sulfa Performing Locations R1: This test was performed at: [facility], [address] [place] [address], [facility]- , , Normal [facility] Comment on above: Performed By: #### [id number] #### [facility] [address] [place] [address] T3 REVERSE, LC/MS/MSon 09-09 T3 REVERSE, LC/MS/MS 10 ng/dL Normal 8-25 [facility]ues t [facility] Comment on above: Order Comment: FASTI NG:YES FASTING: YES Result Comment: This test was developed and its analytical performance characteristics have been determined by [facility] [place], [place]. It has not been cleared or approved by the U.S. Food and Drug Administration. This assay has been validated pursuant to the CLIA regulations and is used for clinical purposes. Performed By: #### 8 66, 899, [id number], 859 #### [facility] of [address], [address] [place] [address] Video Game Designer: Eliezer Cates MD #### [id number] #### [facility]/[address] [place], [place] Video Game Designer: Aldair Johansen M.D.,PhD T3, [facility] 09-09-2024 Free T3 [Mass/Vol] 3.2 pg/mL Normal 2.3-4.2 [facility] Comment on above: Performed By: #### 8 66, 899, [id number], 859 #### [facility] of [place] [address] Video Game Designer: Eliezer Catse MD #### [id number] #### [facility]/[address] [place] Video Game Designer: Aldair Johansen M.D.,PhD T3, TOTALon 09-09-2024 T3, TOTAL 100 ng/dL Normal 76-181 [facility] Comment on above: Performed By: #### 8 66, 899, [id number], 859 #### [facility] of [place] [address] Video Game Designer: Eliezer Cates MD #### [id number] #### [facility]/[address] [place] Video Game Designer: Aldair Johansen M.D.,PhD T4, [facility] 09-09-2024 Free T4 [Mass/Vol] 0.8 ng/dL Normal 0.8-1.8 [facility] Comment on above: Performed By: #### 8 66, 899, [id number], 859 #### [facility] [place] [address] Video Game Designer: Eliezer Cates MD #### [id number] #### [facility] [address] [facility] [place] Video Game Designer: Aldair Johansen M.D.,PhD TSHon 09-09-2024 TSH Qn 0.21 m[IU]/L Low 0.40-4.50 [facility] Comment on above: Performed By: #### 8 66, 899, [id number], 859 #### [facility] [address] [facility], [address] [place] [address] Video Game Designer: Eliezer Cates MD #### [id number] #### [facility]/[place] [id number] [facility] [place] Video Game Designer: Aldair Johansen M.D.,PhD Main OR Intraoperative Recor don 08-18-2024 Main OR Intraoperative Record Main OR Intraoperative Record IntraOp Document Type FTURO Summary Primary Physician: Aldair RIOJAS MD Finalized Date/Time: 08/18/24 11:30:22 Pt. Name: YANET ADAMES Johnny Payan/Sex: 1940 Female Med Rec #: [id number] Physician: Aldair RIOJAS MD Financial #: [id number] Pt. Type: O Room/Bed: / Admit/Disch: 08/18/24 09:36:29 - Institution: Case Times FTURO Entry 1 Patient Times In Room 08/18/24 11:08:00 Out Room 08/18/24 11:21:00 Procedure Times Start 08/18/24 11:13:00 Stop 08/18/24 11:16:00 Anesthesia Times Last Modified By: Marline SAHNI, Tamanna Garcia 08/18/24 11:17:28 Case Attendance FTURO Entry 1 Entry 2 Entry 3 Case Attendee SHINE COSTELLO, Aldair Horan RN, Moi Funez Role Performed Surgeon - Primary University Tutor - Primary Scrub - Primary Time In 08/18/24 11:08:00 08/18/24 11:08:00 08/18/24 11:08:00 Time Out 08/18/24 11:21:00 08/18/24 11:21:00 08/18/24 11:21:00 Procedure CYSTOSCOPY LOCAL CYSTOSCOPY LOCAL CYSTOSCOPY LOCAL Comments Last Modified By: Marline SAHNI, Tamanna Horan RN, Tamanna Horan RN, Tamanna Garcia 08/18/24 Demetra Garcia 08/18/24 Demetra Garcia 08/18/24 11:17:32 11:17:32 11:17:32 Surgical Procedures FTURO Entry 1 Procedure Description Procedure CYSTOSCOPY LOCAL Surgeon Description CYSTOSCOPY LOCAL Primary Procedure Yes Primary Surgeon Aldair RIOJAS MD Start 08/18/24 11:13:00 Stop 08/18/24 11:16:00 Anesthesia Type Local Surgical Service Urology Wound Class 2 - Clean-Contaminated Last Modified By: Marline SAHNI, Tamanna Garcia 08/18/24 11:17:31 General Case Data FTURO Pre-Care Text: Classifies surgical wound, implements aseptic technique, initiates traffic control Entry 1 Case Information OR URODYN FT Case Level None Wound Class 2 - Clean-Contaminated Specialty Urology Preop Diagnosis MIXED INCONTINENCE Postop Same As Preop Yes Postop Diagnosis MIXED INCONTINENCE Outcomes Met? Yes Last Modified By: Marline SAHNI, Tamanna Garcia 08/18/24 11:11:11 Post-Care Text: The patient is free from signs and symptoms of infection EU IntraOp - FTURO Pre-Care Text: Implements protective measures prior to operative or invasive procedure, confirms identity before the operative or invasive procedure, verifies operative procedure, surgical site, and laterality Entry 1 EU Perioperative Protocols Procedure(s) CYSTOSCOPY LOCAL Patient Identity Birthday, ID Band Verified (select at Check, Patient least 2): Participation Consents / H and P H&P, Surgery/Procedure Operative Site N/A Verified Consent Marking Verified Surgical Site Yes Laterality Verified n/a Verified Procedure Verified Yes Correct Patient Yes Position Verified Availability Equipment, Medication Time Out SHINE COSTELLO, Aldair West, Verified (If Participants Marline SAHNI, Tamanna Applicable) Oly Zarate Kendall R Time Out Complete 08/18/24 11:12:00 Allergies Reviewed? Yes Allergies Reviewed Self/Patient With Body Position Frog Legged Prep Area PERINEAL AREA Prep Agents Betadine Solution Skin. Condition Unable to Visualize Description PARTIALLY CLOTHED AND DRAPED Additional None Specimens Collected Vitals - EU Blood Pressure 187/83 Pulse 80 bpm Respirations 18 br/min SPO2 97 % I&O - EU Outcomes Met? Yes Last Modified By: Tamanna Horan RN 08/18/24 11:13:57 Post-Care Text: The patient is free from signs and symptoms of injury caused by extraneous objects Sign Out FTURO Entry 1 Before Patient Leaves OR Nurse verbally Yes Nurse verbally Yes confirms with the confirms with the team the name of team that the procedure(s) instrument, sponge, recorded and needle counts are correct (or N/A) Nurse verbally n/a Nurse verbally n/a confirms with the confirms with the team how the team whether there specimen is labeled are any equipment (including patient problems to be name), if applicable addressed Sign Out Complete 08/18/24 11:16:00 Last Modified By: Tamanna Horan RN 08/18/24 11:17:30 Case Comments Finalized By: Tamanna Horan RN Document Signatures Signed By: Tamanna Horan RN 08/18/24 11:30 Normal [facility] Main OR Preoperative Recordo n 08-18-2024 Main OR Preoperative Record Main OR Preoperative Record Holding Area Document Type FTURO Summary Primary Physician: Aldair RIOJAS MD Finalized Date/Time: 08/18/24 11:09:54 Pt. Name: YANET ADAMES Ora/Sex: 1940 Female Med Rec #: [id number] Physician: Aldair RIOJAS MD Financial #: [id number] Pt. Type: O Room/Bed: / Admit/Disch: 08/18/24 09:36:29 - Institution: Case Times Holding FTURO Pre-Care Text: Verifies consent for planned procedure, identifies individual values and wishes concerning care, includes family members in perioperative teaching Secures patient's records' belongings, and valuables, maintains patient's dignity and privacy, and maintains patient confidentiality Entry 1 In Holding 08/18/24 11:05:00 Outcomes Met? Yes Last Modified By: Tamanna Horan RN 08/18/24 11:09:07 Post-Care Text: The patient participates in decisions affecting his or her perioperative plan of care The patient's right to privacy is maintained Surgery Checklist FTURO Entry 1 Patient Birthday, ID Band Procedure History and Physical, Identification: Check, Patient Verification: Surgical Consent, With Participation Patient NPO after Midnight: n/a Date/Time: 08/18/24 11:05:00 Personal Items: Glasses Complaints of Pain: No Skin Integrity Unable to Visualize Vitals - EU Blood Pressure 187/83 Pulse 80 bpm Respirations 18 br/min SPO2 97 % Additional None RN Reviewed Yes Specimens Collected Last Modified By: Tamanna Horan RN 08/18/24 11:09:50 Finalized By: Tamanna Horan RN Document Signatures Signed By: Tamanna Horan RN 08/18/24 11:09 Normal [facility] Operative Reporton Operative Report Operative Report Patient: YANET ADAMES Age: 83 years Sex: Female : 1940 Associated Diagnoses: None Author: Aldair RIOJAS MD Procedure Operative Information Details: Date/ Time: 08/18/2024 11:20:00. 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 Post-Op Dx: Same. Anesthesia Type: Local. Procedure: Local Cystoscopy. Complications: None. Risks/Benefits/Info rmed Consent: Surgical risks, benefits, details of the procedure have been explained to the patient, Full informed consent has been obtained. Intraoperative Information Prepped: Patient is brought back to the endoscopy suite, Patient is placed in modified dorso/lithotomy position, Patient prepped in the usual fashion with Betadine solution, 2% Xylocaine Jelly is placed per Urethra, After waiting several minutes the Cystoscope is introduced. The Urethra is: Normal. The Bladder is: Normal, No bladder tumors.. The ureteral orifices: Show efflux of clear urine. Devices Implanted: None. Removal: Cystoscope is removed, The patient tolerated it well. Postoperative Information Discharge: Patient is discharged home with antibiotic coverage, Follow up arranged. She will get Botox in the near future.. Normal [facility] Comment on above: Result Comment: Elec tronically Signed By: Aldair RIOJAS MD\.br\Date and Time Signed: 08/18/24 11:21 EST Patient Letter FTMCon 2023 Patient [place] [facility] [place] [facility] [place] 07, 2024 YANET ADAMES [address] [place] [address] : 1940 Dear Yanet Adames, [facility] (Dr. Aldair Riojas office), has been trying to reach you concerning scheduling a bladder scope and bladder function test, prior to having possible Botox treatment done. The office has left messages without a response. Please call the office so we can coordinate this appointment, and continue to provide you with quality care. Sincerely, [facility] , option #3 [facility] Screenson 03-25-2024 Screens [id number] 0#1.00TIFF [facility] Patient Educationon 03-24-20 Patient Education Urology Botulinum Toxin Bladder Injection [...] including vitamins, herbs, eye drops, creams, and utkc-wqm-wxtwsxc medicines. ? Any problems you or family [...] tells you to take them. ? Taking bylv-qut-qsqkbwz medicines, vitamins, herbs, and supplements. General instructions [...] these instructions at home: Medicines ? Take sluv-kwn-pblkxuz and prescription medicines only as told by [...] health ca (more content not included)... Normal [facility] Urology Office/Clinic Noteon 03-24-2024 Urology Office/Clinic Note Chief Complai nt 2m to starting Gemtesa therapy HPI Staff [...] with insurance. -Will schedule Botox with Dr. Riojas. The procedural risks, benefits, details, and treatment [...] for anticholinergics. Follow-up With When Contact Information NATHALIE LARIOS PA-C, URL [address] [place] [address] Additional Instructions: schedule Botox with Dr. Riojas Patient Education Botulinum Toxin Bladder Injection Documentation recorded by the scribe Silvia Cueva accurately reflects the services(s) I performed and decisions made by me. Authenticated by Nathalie Larios PA-C on 03/24/2024 14:21:28. I, Silvia Cueva, [...] Smokeless Tobacco Use:., (more content not included)... Normal [facility] Comment on above: Result Comment: Elec tronically Signed By: NATHALIE LARIOS PA-C\.br\Date and Time Signed: 03/24/24 14:21 EDT\.br\Electronically Co-Signed By: Silvia Cueva.br\Date and Time Co-Signed: 03/24/24 14:18 EDT [facility] 01-22-2024 Screens [id number] 343#1.00TIFF [facility] Ambulatory Visit Summaryon 0 01-21-2024 Ambulatory Visit Summary YANET ADAMES :1940 Visit Date:01/21/2024 Ambulatory Visit Instructions Your Diagnosis Mixed incontinence Alzheimer disease Dementia in other diseases classified elsewhere, unspecified severity, without behavioral disturbance, psychotic disturbance, mood disturbance, and anxiety Your Care Team Attending Physician - NATHALIE LARIOS PA-C Primary Care Physician - JOSUÉ COSTELLO, [...] Appointments Saturday 2:00 PM EDT With: NATHALIE LARIOS PA-C Where: [facility] Patient Educationon 01-21-20 24 Patient Education Urology Urinary Incontinence Urinary incontinence [...] stimulation). ? For women, using a medical practice manager to prevent urine leaks. This is a [...] urine. ? (more content not included)... Normal [facility] Urology Office/Clinic Noteon 01-21-2024 Urology Office/Clinic Note Chief Complai nt 1 yr f/u HPI Staff PRW pt [...] No rashes or suspicious lesions Assessment/Plan Dr. Riojas pt. 1. Mixed incontinence (N39.46: Mixed incontinence) [...] Daily, # 30 tab(s), Refills(s) 11, Pharmacy: [facility]/pharmacy #[id number], 150, cm, 01/21/24 15:16:00 EDT, [...] Urnls Dip Stick Auto w/o Microscopy POC 58819 2. Alzheimer disease (G30.9: Alzheimer's disease, unspecified) see #1. not a good candidate for anticholinergics. Dementia in other diseases classified elsewhere, unspecified severity, without behavioral disturbance, psychotic disturbance, mood disturbance, and anxiety (F02.80: Dementia in other diseases classified elsewhere, unspecified severity, without behavioral disturbance, psychotic disturbance, mood disturbance, and anxiety) Follow-up With When Contact Information NATHALIE LARIOS PA-C, URL [address] [place] [address] [phone] Additional Instructions: 2-3 mos (new med) Patient Education Urinary Incontinence Documentation recorded by the kulwinderibrancho Quevedo accurately reflects the services(s) I performed and decisions made by me. Authenticated by Nathalie Larios PA-C on 01/21/2024 15:42:09. I, Liset Quevedo, personally scribed for Nathalie Larios PA-C on 01/21/2024 15:35:55. . Problem List/Past [...] (1988), Bilat (more content not included)... Normal [facility] Comment on above: Result Comment: Elec tronically Signed By: ROBERT CONRAD, NATHALIE Vickers\.br\Date and Time Signed: 01/21/24 15:42 EDT\.br\Electronically Co-Signed By: Liset Quevedo\.br\Date and Time Co-Signed: 01/21/24 15:37 EDT REVERSE T3on 02-12-2023 Reverse T3, Serum 17.8 ng/dL Normal 9.2-24.1 [facility] Comment on above: Performed By: #### T SH, FT3 #### [facility] [address] [address] [address] Silvestre Williamson T3, TOTAL (TRIIODOTHYRONINE) on 01-30-2023 T3, TOTAL 121 ng/dL Normal 71-180 [facility] Comment on above: Performed By: #### T 3TOTAL #### [facility] [address] [address] [address] Silvestre Williamson FREE T3on 01-29-2023 FREE T3 2.87 pg/mlL Normal 2.18-3.98 [facility] Comment on above: Performed By: #### T SH, FT3 #### [facility] [address] [address] [address] Silvestre Williamson FREE T4on 01-29-2023 Free T4 [Mass/Vol] 0.64 ng/dL Critically low 0.76-1.46 Th e [facility] Comment on above: Performed By: #### F T4 #### [facility] [address] [address] [address] Silvestre Williamson TSHon 01-29-2023 TSH 0.220 uIU/mL Critically low 0.358-3.74 0 [facility] Comment on above: Performed By: #### T SH, FT3 #### [facility] [address] [address] [address] Silvestre Williamson US MARCELA DOP LEG [...] VALERIE SAWYER Date: 2022-08-24 18:12 Normal [facility] REVERSE T3on 07-31-2022 Reverse T3, Serum 16.3 ng/dL Normal 9.2-24.1 [facility] Comment on above: Result Comment: This test was developed and its performance characteristics determined by [facility]. It has not been cleared or approved by the Food and Drug Administration. Performed By: #### T SH, FT3 #### [facility] [address] [place] [address] Dr. Silvestre Williamson T3, TOTAL (TRIIODOTHYRONINE) on 07-26-2022 T3, TOTAL 156 ng/dL Normal 71-180 [facility] Comment on above: Performed By: #### T 3TOTAL #### [facility] [address] [place] [address] Dr. Silvestre Williamson FREE T3on 07-25-2022 FREE T3 3.85 pg/mlL Normal 2.18-3.98 [facility] Comment on above: Performed By: #### T SH, FT3 #### [facility] [address] [place], [place] [address] Dr. Silvestre Williamson FREE T4on 07-25-2022 Free T4 [Mass/Vol] 1.04 ng/dL Normal 0.76-1.46 [facility] Comment on above: Performed By: #### F T4 #### [facility] [id number] Silvestre Williamson TSHon 07-25-2022 TSH Qn m[IU]/L Critically low 0.358-3.74 0 [facility] Comment on above: Performed By: #### T SH, FT3 #### [facility] [address] [address] [address] Silvestre Williamson MG MAMM SCREEN 3D RUBEN CADon 07-04-2022 MG MAMM SCREEN 3D RUBEN CAD Patient: YANET STEPHENS Exam Date: 07/04/2022 : 1940 Gender:F Ordering : DR HOMERO MOSES . Admission #: [id number] Family : Order #: [id number] CLICK HERE TO VIEW EXAM RADIOLOGY REPORT [...] colon cancer at age 71. LOCATION: [facility] BREAST COMPOSITION: Heterogeneously dense,which may obscure [...] Hyde MD on 07/04/2022 at 09:10 Normal [facility] LIPID PROFILEon 06-06-2022 CHOL-HDL RATIO NORM SEE BELOW Normal [facility] Comment on above: Result Comment: 3.3 - 4.4 LOW RISK 4.4 - 7.1 AVERAGE RISK 7.1 - 11.0 MODERATE RISK >11.0 HIGH RISK Performed By: #### T SH, FT3 #### [facility] [address] [address] [address] Silvestre Williamson Cholesterol [Mass/Vol] 271 mg/dL Critically high <=200 [facility] Comment on above: Performed By: #### T NEGAR, FT3 #### [facility] [address] [place] [address] Dr. Silvestre Williamson Cholesterol in HDL [Mass/Vol] 122 mg/dL Critically high 4 0-60 [facility] Comment on above: Performed By: #### T NEGAR, FT3 #### [facility] [address] [place] [address] Dr. Silvestre Williamson Cholesterol in LDL [Mass/Vol] 140.6 mg/dL Normal [facility] Comment on above: Performed By: #### T SH, FT3 #### [facility] [address] [place] [address] Dr. Silvestre Williamson Cholesterol.total/Cholestero l in HDL [Mass ratio] 2.2 {ratio} Normal [facility] Comment on above: Performed By: #### T SH, FT3 #### [facility] [address] [place] [address] Dr. Silvestre Williamson HDL NORMAL > or = 60 mg/dl - LOW CARDIOVASCULAR RISK <40 mg/dl - HIGH CARDIOVASCULAR RISK Normal [facility] Comment on above: Performed By: #### T SH, FT3 #### [facility] [address] [place] [address] Dr. Silvestre Williamson LDL CALC NORMAL SEE BELOW Normal [facility] Comment on above: Result Comment: <100 mg/dl OPTIMAL 100 - 129 mg/dl NEAR OR ABOVE OPTIMAL 130 - 159 mg/dl BORDERLINE HIGH 160 - 189 mg/dl HIGH >190 mg/dl VERY HIGH Performed By: #### T SH, FT3 #### [facility] [address] [place] [address] Dr. Silvestre Williamson Triglyceride [Mass/Vol] 42 mg/dL Normal <=150 [facility] Comment on above: Performed By: #### T SH, FT3 #### [facility] [address] [place] [address] Dr. Silvestre Williamson VLDL CALC 8.4 mg/dL Normal [facility] Comment on above: Performed By: #### T SH, FT3 #### [facility] [address] [place] [address] Dr. Silvestre Williamson PROF 14(COMP METB)on 022 Albumin [Mass/Vol] 3.4 g/dL Normal 3.4-5.0 [facility] Comment on above: Performed By: #### T NEGAR, FT3 #### [facility] [address] [place] [address] Dr. Silvestre Williamson Albumin/Globulin [Mass ratio] 1.0 {ratio} Normal [facility] Comment on above: Performed By: #### T SH, FT3 #### [facility] [address] [place] [address] Dr. Silvestre Williamson ALP [Catalytic activity/Vol] 62 U/L Normal 46-116 [facility] Comment on above: Performed By: #### T NEGAR, FT3 #### [facility] [address] [place] [address] Dr. Silvestre Williamson ALT [Catalytic activity/Vol] 25 U/L Normal 14-59 [facility] Comment on above: Performed By: #### T SH, FT3 #### [facility] [address] [place] [address] Dr. Silvestre Williamson Anion gap [Moles/Vol] 9.9 mmol/L Normal [facility] Comment on above: Performed By: #### T SH, FT3 #### [facility] [address] [place] [address] Dr. Silvestre Williamson AST [Catalytic activity/Vol] 13 U/L Critically low 15- 37 [facility] Comment on above: Performed By: #### T SH, FT3 #### [facility] [address] [place] [address] Dr. Silvestre Williamson Bilirubin [Mass/Vol] 0.4 mg/dL Normal 0.2-1.0 [facility] Comment on above: Performed By: #### T SH, FT3 #### [facility] [address] [place] [address] Dr. Silvestre Williamson Calcium [Mass/Vol] 9.2 mg/dL Normal 8.5-10.1 [facility] Comment on above: Performed By: #### T SH, FT3 #### [facility] [address] [place] [address] Dr. Silvestre Williamson Chloride [Moles/Vol] 104 mmol/L Normal 98-107 [facility] Comment on above: Performed By: #### T SH, FT3 #### [facility] [address] [place] [address] Dr. Silvestre Williamson CO2 [Moles/Vol] 31.6 mmol/L Normal 21.0-32.0 [facility] Comment on above: Performed By: #### T SH, FT3 #### [facility] [address] [place] [address] Dr. Silvestre Williamson Creatinine [Mass/Vol] 0.83 mg/dL Normal 0.55-1.02 [facility] Comment on above: Performed By: #### T SH, FT3 #### [facility] [address] [place] [address] Dr. Silvestre Williamson EGFR-AF CUBAN >60 Normal >=60 [facility] Comment on above: Performed By: #### T SH, FT3 #### [facility] [address] [place] [address] Dr. Silvestre Williamson EGFR-NON AF CUBAN >60 Normal >=60 [facility] Comment on above: Performed By: #### T SH, FT3 #### [facility] [address] [place] [address] Dr. Silvestre Williamson Globulin (S) [Mass/Vol] 3.5 g/dL Normal [facility] Comment on above: Performed By: #### T NEGAR, FT3 #### [facility] [address] [place] [address] Dr. Silvestre Williamson Glucose [Mass/Vol] 96 mg/dL Normal 74-[address] [facility] Comment on above: Performed By: #### T SH, FT3 #### [facility] [address] [place] [address] Dr. Silvestre Williamson Potassium [Moles/Vol] 4.5 mmol/L Normal 3.5-5.1 [facility] Comment on above: Performed By: #### T NEGAR, FT3 #### [facility] [address] [place] [address] Dr. Silvestre Williamson Protein [Mass/Vol] 6.9 g/dL Normal 6.4-8.2 [facility] Comment on above: Performed By: #### T NEGAR, FT3 #### [facility] [address] [place] [address] Dr. Silvestre Williamson Sodium [Moles/Vol] 141 mmol/L Normal 136-145 [facility] Comment on above: Performed By: #### T NEGAR, FT3 #### [facility] [address] [place] [address] Dr. Silvestre Williamson Urea nitrogen [Mass/Vol] 11.0 mg/dL Normal 7.0-18.0 [facility] Comment on above: Performed By: #### T NEGAR, FT3 #### [facility] [address] [place] [address] Dr. Silvestre Williamson Urea nitrogen/Creatinine [Mass ratio] 13.3 mg/mg Normal [facility] Comment on above: Performed By: #### T NEGAR, FT3 #### [facility] [address] [place] [address] Dr. Silvestre Reddy 03-01-2022 TICO Telephone ([place]) ---- YANET ADAMES ([id number]) 1940 F Date Time Provider Department 03/01/22 NATALY BATISTA During your visit today, we recorded the following information about you: Nataly Batista RN 03/01/2022 1:46 PM Signed Received call from Yamilet at [facility] Scheduling stating pt is scheduled for mammogram there but order is for screening and pt is less than 5 years out from her breast cancer so they would like dx [facility] order. MOR: Order pending. Please review and sign if agreeable. BORA Siddiqi RN 03/01/2022 3:43 PM Signed Order faxed. 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 - MULTI-VITAMIN ORAL [...] VAGINALLY THREE TIMES WEEKLY - thyroid, pork, (STAINED GLASS PAINTER THYROID) 60 mg STAINED GLASS PAINTER Thyroid 60 mg tablet TAKE 1 TABLET BY MOUTH TWICE A DAY ON EMPTY STOMACH - sucralfate (CARAFATE) 1 gram tablet Carafate 1 gram tablet Take 1 tablet twice a day by oral route. - CALCIUM CITRATE ORAL Take by mouth. - anastrozole (ARIMIDEX) 1 mg tablet Take 1 tablet by mouth once daily. - Fexofenadine-Pseudo ephedrine (BENITA-D 24 HOUR) 180-240 mg per 24 hr tablet Take 1 tablet by mouth once daily. - KAROLINA ASPIRIN ORAL Take by mouth. - cholecalciferol, vitamin D3, (D-3-5 ORAL) Take by mouth. - biotin 5 mg tab Take 5 mg by mouth once daily. - calcium carbonate/vitamin D2 ([id number]-096-[id number] ORAL) Take by mouth. - Magnesium 250 [...] Status:Closed by NATALY BATISTA on 03/01/22 Normal [facility] CBC W Auto Differential pane l (Bld)on 01-11-2022 Basophils (Bld) [#/Vol] 0.03 10*3/uL Normal <0.11 [facility] Comment on above: Order Comment: Speci men Type: BLOOD SPECIMEN Ordering Facility: [facility] Address: [address] [place] [address] Performed By: #### 5 7021-8 #### [facility] CLIA [id number] [address] [place] [address] Basophils/100 WBC (Bld) 0.5 % Normal C [facility] Comment on above: Order Comment: Speci men Type: BLOOD SPECIMEN Ordering Facility: [facility] Address: [address] [place] [address] Performed By: #### 5 7021-8 #### [facility] CLIA [id number] [address] [place] [address] Differential cell count method Nom (Bld) Auto Normal [facility] Comment on above: Order Comment: Speci men Type: BLOOD SPECIMEN Ordering Facility: [facility] Address: [address] [place] [address] Performed By: #### 5 7021-8 #### [facility] CLIA [id number] [address] [place] [address] Eosinophils (Bld) [#/Vol] 0.20 10*3/uL Normal <0.46 [facility] Comment on above: Order Comment: Speci men Type: BLOOD SPECIMEN Ordering Facility: [facility] Address: [address] [place] [address] Performed By: #### 5 7021-8 #### [facility] CLIA [id number] [address] [place] [address] Eosinophils/100 WBC (Bld) 3.0 % Normal [facility] Comment on above: Order Comment: Speci men Type: BLOOD SPECIMEN Ordering Facility: [facility] Address: [address] [place] [address] Performed By: #### 5 7021-8 #### [facility] CLIA [id number] [address] [place] [address] Erythrocyte distribution width (RBC) [Ratio] 14.1 % Normal 11.5-15.0 [facility] Comment on above: Order Comment: Speci men Type: BLOOD SPECIMEN Ordering Facility: [facility] Address: [address] [place] [address] Performed By: #### 5 7021-8 #### [facility] CLIA [id number] [address] [place] [address] Hematocrit (Bld) [Volume fraction] 40.6 % Normal 36.0-46.0 [facility] Comment on above: Order Comment: Speci men Type: BLOOD SPECIMEN Ordering Facility: [facility] Address: [address] [place] [address] Performed By: #### 5 7021-8 #### [facility] CLIA [id number] [address] [place], [place] [id number] Hemoglobin (Bld) [Mass/Vol] 13.3 g/dL Normal 11.5-15. 5 [facility] Comment on above: Order Comment: Speci men Type: BLOOD SPECIMEN Ordering Facility: [facility] Address: [address] [place] [address] Performed By: #### 5 7021-8 #### [facility] CLIA [id number] [address] [place] [address] 21485 IMMATURE GRAN % 0.2 % Normal [facility] Comment on above: Order Comment: Speci men Type: BLOOD SPECIMEN Ordering Facility: [facility] Address: [address] [place] [address] Performed By: #### 5 7021-8 #### [facility] CLIA [id number] [address] [place] [address] 90120 IMMATURE GRAN ABS <0.03 Normal <0.10 [facility] Comment on above: Order Comment: Speci men Type: BLOOD SPECIMEN Ordering Facility: [facility] Address: [address] [place] [address] Performed By: #### 5 7021-8 #### [facility] CLIA [id number] [address] [place] [address] 78488 Lymphocytes (Bld) [#/Vol] 1.62 10*3/uL Normal 1.00-4.0 0 [facility] Comment on above: Order Comment: Speci men Type: BLOOD SPECIMEN Ordering Facility: [facility] Address: [address] [place] [address] Performed By: #### 5 7021-8 #### [facility] CLIA [id number] [address] [place] [address] 10774 Lymphocytes/100 WBC (Bld) 24.5 % Normal [facility] Comment on above: Order Comment: Speci men Type: BLOOD SPECIMEN Ordering Facility: [facility] Address: [address] [place] [address] Performed By: #### 5 7021-8 #### [facility] CLIA [id number] [address] [place] [address] 98661 MCH (RBC) [Entitic mass] 30.9 pg Normal 26.0-34.0 [facility] Comment on above: Order Comment: Speci men Type: BLOOD SPECIMEN Ordering Facility: [facility] Address: [address] [place] [address] Performed By: #### 5 7021-8 #### [facility] CLIA [id number] [address] [place] [address] 45076 MCHC (RBC) [Mass/Vol] 32.8 g/dL Normal 30.5-36.0 [facility] Comment on above: Order Comment: Speci men Type: BLOOD SPECIMEN Ordering Facility: [facility] Address: [address] [place] [address] Performed By: #### 5 7021-8 #### [facility] CLIA [id number] [address] [place] [address]309 MCV (RBC) [Entitic vol] 94.2 fL Normal 80.0-100.0 [facility] Comment on above: Order Comment: Speci men Type: BLOOD SPECIMEN Ordering Facility: [facility] Address: [address] [place], [place] [address] Performed By: #### 5 7021-8 #### [facility] CLIA [id number] [address] [place] [address] Monocytes (Bld) [#/Vol] 0.49 10*3/uL Normal <0.87 [facility] Comment on above: Order Comment: Speci men Type: BLOOD SPECIMEN Ordering Facility: [facility] Address: [address] [place] [address] Performed By: #### 5 7021-8 #### [facility] CLIA [id number] [address] [place] [address] 61290 Monocytes/100 WBC (Bld) 7.4 % Normal [facility] Comment on above: Order Comment: Speci men Type: BLOOD SPECIMEN Ordering Facility: [facility] Address: [address] [place] [address] Performed By: #### 5 7021-8 #### [facility] CLIA [id number] [address] [place] [address] 80466 Neutrophils (Bld) [#/Vol] 4.25 10*3/uL Normal 1.45-7.5 0 [facility] Comment on above: Order Comment: Speci men Type: BLOOD SPECIMEN Ordering Facility: [facility] Address: [address] [place] [address] Performed By: #### 5 7021-8 #### [facility] CLIA [id number] [address] [place] [address] 01143 Neutrophils/100 WBC (Bld) 64.4 % Normal [facility] Comment on above: Order Comment: Speci men Type: BLOOD SPECIMEN Ordering Facility: [facility] Address: [address] [place] [address] Performed By: #### 5 7021-8 #### [facility] CLIA [id number] [address] [place] [address] 44846 Nucleated RBC (Bld) [#/Vol] 10*3/uL Normal <0.01 [facility] Comment on above: Order Comment: Speci men Type: BLOOD SPECIMEN Ordering Facility: [facility] Address: [address] [place], [place] [address] Performed By: #### 5 7021-8 #### [facility] CLIA [id number] [address] [place] [address] 99990 Nucleated RBC/100 WBC (Bld) [Ratio] 0.0 /100 WBC Normal [facility] Comment on above: Order Comment: Speci men Type: BLOOD SPECIMEN Ordering Facility: [facility] Address: [address] [place] [address] Performed By: #### 5 7021-8 #### [facility] CLIA [id number] [address] [place] [address] 30401 Platelet mean volume (Bld) [Entitic vol] 9.8 fL Normal 9.0-12.7 [facility] Comment on above: Order Comment: Speci men Type: BLOOD SPECIMEN Ordering Facility: [facility] Address: [address] [place] [address] Performed By: #### 5 7021-8 #### [facility] CLIA [id number] [address] [place] [address] 79174 Platelets (Bld) [#/Vol] 222 10*3/uL Normal 150-400 [facility] Comment on above: Order Comment: Speci men Type: BLOOD SPECIMEN Ordering Facility: [facility] Address: [address] [place], [place] [address] Performed By: #### 5 7021-8 #### [facility] CLIA [id number] [address] [place] [address] 66208 RBC (Bld) [#/Vol] 4.31 10*6/uL Normal 3.90-5.20 [facility] Comment on above: Order Comment: Speci men Type: BLOOD SPECIMEN Ordering Facility: [facility] Address: [address] [place] [address] Performed By: #### 5 7021-8 #### [facility] CLIA [id number] [address] [place] [address] WBC (Bld) [#/Vol] 6.60 10*3/uL Normal 3.70-11.00 [facility] Comment on above: Order Comment: Speci men Type: BLOOD SPECIMEN Ordering Facility: [facility] Address: [address] [place] [address] Performed By: #### 5 7021-8 #### [facility] CLIA [id number] [address] [place] [address] CNOVSPon 01-11-2022 CNOVSP Visit (SP) Office (HEMASA) ---- YANET ADAMES ([id number]) 1940 F Date Time Provider Department 01/11/22 1:00 PM PRANAV BERMUDEZ During your visit today, we recorded the following information about you: Temperature Pulse Respiration Blood pressure 97.1 degrees 81/minute 16/minute 131/79 Weight Height 62 kg 1.499 m Pranav Bermudez MD 01/11/2022 8:32 PM Signed NAME: Yanet Adames CLINIC NO.: [id number] DATE OF SERVICE: January 11, 2022 Some [...] her diagnosis was found originally in [place] after which she decided to move up here permanently. Her is retired from [employer]. ? Some background history that are reviewed today reveals that she originally presented in consultation 02/06/18 with a new diagnosis of breast cancer. She was taken to lumpectomy 01/24/18 with the finding of a 2 cm sized ER and ID positive, HER 2 negative breast cancer. 0/5 [...] right axillary node excision and lumpectomy 2cm ER/ID positive 100%/80%, Her2 negative by FISH right [...] Wt 13 (more content not included)... Normal [facility] Comprehensive metabolic 2000 panelon 01-11-2022 Albumin [Mass/Vol] 4.4 g/dL Normal 3.9-4.9 [facility] Comment on above: Order Comment: Speci men Type: BLOOD SPECIMEN Ordering Facility: [facility] Address: [address] [place] [address] Performed By: #### 2 4323-8 #### [facility] CLIA [id number] [address] [place] [address] 80292 ALP [Catalytic activity/Vol] 61 U/L Normal 34-123 [facility] Comment on above: Order Comment: Speci men Type: BLOOD SPECIMEN Ordering Facility: [facility] Address: [address] Performed By: #### 2 4323-8 #### [facility] CLIA [id number] [address] [place] [address] 02261 ALT [Catalytic activity/Vol] 12 U/L Normal 7-38 [facility] Comment on above: Order Comment: Speci men Type: BLOOD SPECIMEN Ordering Facility: [facility] Address: [address] [place] [address] Performed By: #### 2 4323-8 #### [facility] CLIA [id number] [address] [place] [address] 62647 Anion gap [Moles/Vol] 6 mmol/L Low 9-18 [facility] Comment on above: Order Comment: Speci men Type: BLOOD SPECIMEN Ordering Facility: [facility] Address: [address] [place] [address] Performed By: #### 2 4323-8 #### [facility] CLIA [id number] [address] [place] [address] 04688 AST [Catalytic activity/Vol] 14 U/L Normal 13-35 [facility] Comment on above: Order Comment: Speci men Type: BLOOD SPECIMEN Ordering Facility: [facility] Address: [address] [place], [place] [address] Performed By: #### 2 4323-8 #### [facility] CLIA [id number] [address] [place] [address] 76591 Bilirubin [Mass/Vol] 0.3 mg/dL Normal 0.2-1.3 [facility] Comment on above: Order Comment: Speci men Type: BLOOD SPECIMEN Ordering Facility: [facility] Address: [address] [place] [address] Performed By: #### 2 4323-8 #### [facility] CLIA [id number] [address] [place] [address] Calcium [Mass/Vol] 9.8 mg/dL Normal 8.5-10.2 [facility] Comment on above: Order Comment: Speci men Type: BLOOD SPECIMEN Ordering Facility: [facility] Address: [address] [place] [address] Performed By: #### 2 4323-8 #### [facility] CLIA [id number] [address] [place] [address] Chloride [Moles/Vol] 103 mmol/L Normal 97-105 [facility] Comment on above: Order Comment: Speci men Type: BLOOD SPECIMEN Ordering Facility: [facility] Address: [address] [place] [address] Performed By: #### 2 4323-8 #### [facility] CLIA [id number] [address] [place] [address] 46267 CO2 [Moles/Vol] 27 mmol/L Normal 22-30 [facility] Comment on above: Order Comment: Speci men Type: BLOOD SPECIMEN Ordering Facility: [facility] Address: [address] [place] [address] Performed By: #### 2 4323-8 #### [facility] CLIA [id number] [address] [place] [address] 15340 Creatinine [Mass/Vol] 0.93 mg/dL Normal 0.58-0.96 [facility] Comment on above: Order Comment: Speci men Type: BLOOD SPECIMEN Ordering Facility: [facility] Address: [address] [place] [address] Performed By: #### 2 4323-8 #### [facility] CLIA [id number] [address] [place] [address] 17143 ESTIMATED GLOMERULAR FILTRATION RATE 62 mL/min/1.73m??? Normal >=60 [facility] Comment on above: Order Comment: Speci men Type: BLOOD SPECIMEN Ordering Facility: [facility] Address: [address] [place] [address] Result Comment: Mag mated Glomerular Filtration Rate [...] #### [facility] CLIA [id number] [address] [place] [address] 34938 Glucose [Mass/Vol] 97 mg/dL Normal 74-99 [facility] Comment on above: Order Comment: Corey guillen Type: BLOOD SPECIMEN Ordering Facility: [facility] Address: [address] [address] Result Comment: The [place] [employer] (ADA) provides guidance for cutoff [...] Standards of Medical Care in Diabetes 2016, [place] [employer]. Diabetes Care. 2016.39(Suppl 1). Performed By: #### 2 4323-8 #### [facility] CLIA [id number] [address] [place] [address] 67283 Potassium [Moles/Vol] 4.1 mmol/L Normal 3.7-5.1 [facility] Comment on above: Order Comment: Corey guillen Type: BLOOD SPECIMEN Ordering Facility: [facility] Address: [address] [id number] Performed By: #### 2 4323-8 #### [facility] CLIA [id number] [address] [place] [address] 82004 Protein [Mass/Vol] 7.2 g/dL Normal 6.3-8.0 [facility] Comment on above: Order Comment: Speci men Type: BLOOD SPECIMEN Ordering Facility: [facility] Address: [address] [place] [address] Performed By: #### 2 4323-8 #### [facility] CLIA [id number] [address] [place] [address] 34947 Sodium [Moles/Vol] 136 mmol/L Normal 136-144 [facility] Comment on above: Order Comment: Speci men Type: BLOOD SPECIMEN Ordering Facility: [facility] Address: [address] [place] [address] Performed By: #### 2 4323-8 #### [facility] CLIA [id number] [address] [place] [address] 37438 Urea nitrogen [Mass/Vol] 25 mg/dL High 7-21 [facility] Comment on above: Order Comment: Speci men Type: BLOOD SPECIMEN Ordering Facility: [facility] Address: [address] [place] [address] Performed By: #### 2 4323-8 #### [facility] CLIA [id number] [address] [place] [address] 94327 Maureen 01-03-2022 BHAVANAN Telephone (HEMASA) ---- YANET ADAMES ([id number]) 1940 F Date Time Provider Department 01/03/22 [...] Reaction MILK 06/04/2018 11 - Vomiting PERCOCET (OXYCODONE-ACETAMIN OPHEN)02/06/2018 1 - Mental Status Change Comments: makes me delioy SOY 06/04/2018 16 - Unknown Date Reviewed: 07/13/2021 Reviewed by: Pranav Bermudez MD - Fully Assessed Reason for Visit: Lab Orders [1688] Primary Visit Diagnosis:Malignant neoplasm of lower-outer quadrant of right female breast, unspecified estrogen receptor status (HCC) [C50.511] Other Visit Diagnosis:Encounter for screening for osteoporosis [Z13.820] Order(s):CBC + DIFF [SQCBCDIF] Order #: [id number] FUTURE COMP METABOLIC PANEL [SQCMP] Order #: [id number] FUTURE Prescriptions as of 01/04/2022 - anastrozole (ARIMIDEX) 1 mg tablet TAKE 1 TABLET BY MOUTH EVERY DAY - solifenacin (VESICARE) 5 mg tablet TAKE 1 TABLET BY MOUTH DAILY FOR 2 WEEKS THEN INCREASE TO 2 TABLETS DAILY TOLERATING SIDE EFFECTS - STRONTIUM [id number] ORAL Take by mouth. - MULTI-VITAMIN ORAL [...] VAGINALLY THREE TIMES WEEKLY - thyroid, pork, (STAINED GLASS PAINTER THYROID) 60 mg STAINED GLASS PAINTER Thyroid 60 mg tablet TAKE 1 TABLET BY MOUTH TWICE A DAY ON EMPTY STOMACH - sucralfate (CARAFATE) 1 gram tablet Carafate 1 gram tablet Take 1 tablet twice a day by oral route. - CALCIUM CITRATE ORAL Take by mouth. - anastrozole (ARIMIDEX) 1 mg tablet Take 1 tablet by mouth once daily. - Fexofenadine-Pseudo ephedrine (BENITA-D 24 HOUR) 180-240 mg per 24 hr tablet Take 1 tablet by mouth once daily. - KAROLINA ASPIRIN ORAL Take by mouth. - cholecalciferol, vitamin D3, (D-3-5 ORAL) Take by mouth. - biotin 5 mg tab Take 5 mg by mouth once daily. - calcium carbonate/vitamin D2 (QZNZIHE-341-D ORAL) Take by mouth. - Magnesium 250 [...] osteoporosis without current pathol*01/12/2021 Encounter Status:Closed by KARLENE KELLEN on 01/03/[facility] OVS Visit (SP) Office (ADARSH) ---- YANET ADAMES ([id number]) 1940 F Date Time Provider Department 07/13/21 10:45 AM PRANAV BERMUDEZ During your visit today, we recorded the following information about you: Temperature Pulse Respiration Blood pressure 97 degrees 91/minute 16/minute 151/80 Weight Height 59.1 kg 1.499 m Pranav Bermudez MD 07/13/2021 1:04 PM Signed NAME: Yanet Adames CLINIC NO.: [id number] DATE OF SERVICE: July 13, 2021 Some [...] her diagnosis was found originally in [place] after which she decided to move up here permanently. Her is retired from [employer]. ? Some background history that are reviewed today reveals that she originally presented in consultation 02/06/18 with a new diagnosis of breast cancer. She was taken to lumpectomy 01/24/18 with the finding of a 2 cm sized ER and ID positive, HER 2 negative breast cancer. 0/5 [...] right axillary node excision and lumpectomy 2cm ER/ID positive 100%/80%, Her2 negative by FISH right [...] be respirin (more content not included)... Normal [facility] MR Brain WO and W contrast I [...] OTHERWISE NORMAL IN APPEARANCE WITHOUT PATHOLOGIC ENHANCEMENT. Access Clinician: [facility] Transcribe Date/Time: Apr 28 2021 10:16A Dictated by : YURIY RODGERS MD This examination was interpreted and the report reviewed and electronically signed by: YURIY RODGERS MD on Apr 28 2021 10:20AM [facility] DIVISION OF RADIOLOGY * * *Final Report* * * DATE OF EXAM: Apr 28 2021 10:09AM [facility] 0295 - MRI BRAIN WO/W IVCON / [...] are grossly clear. DIVISION OF RADIOLOGY Provider, [facility] - 04/28/2021 * * *Final Report* * [...] OTHERWISE NORMAL IN APPEARANCE WITHOUT PATHOLOGIC ENHANCEMENT. [facility] Trans[facility] Date/Time: Apr 28 2021 10:16A Dictated by : YURIY RODGERS MD This examination was interpreted and the report reviewed and electronically signed by: YURIY RODGERS MD on Apr 28 2021 10:20AM [facility] Radiology Study observation (narrative) [facility] MR Brain WO and W contrast I VOrdered By: [facility] Provider on 04-28-2021 [facility] MRI BRAIN WO/W IVCONon 04-28 MRI BRAIN WO/W IVCON * * *Final Report* * * DATE OF EXAM: Apr 28 2021 10:09AM [facility] 0295 - MRI BRAIN WO/W IVCON / [...] OTHERWISE NORMAL IN APPEARANCE WITHOUT PATHOLOGIC ENHANCEMENT. Access Clinician: [facility] Transcribe Date/Time: Apr 28 2021 10:16A Dictated by : YURIY RODGERS MD This examination was interpreted and the report reviewed and electronically signed by: YURIY RODGERS MD on Apr 28 2021 10:20AM EST [id number] Normal [facility] CNOVon 04-14-2021 [facility] YANET AD[facility] ([id number]) 1940 F Date Time Provider Department 04/14/21 3:00 PM OCT EXAM READ NEMSMN During your visit today, we recorded the following information about you: Nisreen De La Cruz MA 04/14/2021 3:24 PM Signed OCT completed per Epic order Nisreen De La Cruz CMA April 14, 2021 3:23 PM Referring Provider: MARCUS TIRADO [[id number]] Allergies As of Date: 04/14/2021 Noted Allergy Reaction MILK 06/04/2018 11 - Vomiting PERCOCET (OXYCODONE-ACETAMIN OPHEN)02/06/2018 1 - Mental Status Change Comments: makes [...] VAGINALLY THREE TIMES WEEKLY - thyroid, pork, (STAINED GLASS PAINTER THYROID) 60 mg STAINED GLASS PAINTER Thyroid 60 mg tablet TAKE 1 TABLET [...] 1 tablet by mouth once daily. - Fexofenadine-Pseudo ephedrine (BENITA-D 24 HOUR) 180-240 mg per 24 hr tablet Take 1 tablet by mouth once daily. - KAROLINA ASPIRIN ORAL Take by mouth. - cholecalciferol, vitamin D3, (D-3-5 ORAL) Take by mouth. - biotin 5 mg tab Take 5 mg by mouth once daily. - calcium carbonate/vitamin D2 (LOZSOUI-913-X ORAL) Take by mouth. - Magnesium 250 [...] 3:23 PM Status: Signed OCT completed per [facility] order Nisreen De La Cruz CMA April 14, 2021 3:23 PM Encounter Status:Closed by BRENDA JUNIOR on 04/30/21 [facility] Office Visit (MARY) ---- YANET ADAMES ([id number]) 1940 F Date Time Provider Department 04/14/21 2:00 PM MARCUS TIRADO During your visit today, we recorded the following information about you: Pulse Blood pressure Weight Height 87/minute 149/51 57.2 kg 1.499 m Marcus Tirado MD 04/18/2021 8:42 AM [facility] FOR MULTIPLE SCLEROSIS NEW PATIENT EVALUATION/CONSULTA TION Referral source: Shadia Barrera, OD [address] [place] [id number] Also followed by: Patient Care Team: Homero [...] a past medical history of stage I ER/ID+ve HER-2neu -ve breast cancer s/p lumpectomy, radiation and adjuvant anastrazole, Hyppothyroidism, hypercholesterolemi a, and osteoporosis. She presents today with a chief concern of abnormal visual starkey testing (perimetry). She was getting her routine eye examination when the behavioral health rn/opt ometrist who noted an abnormality on her exam. [...] VAGINALLY THREE TIMES WEEKLY - thyroid, pork, (STAINED GLASS PAINTER THYROID) 60 mg STAINED GLASS PAINTER Thyroid 60 mg tablet TAKE 1 TABLET BY MOUTH TWICE A DAY ON EMPTY STOMACH - sucralfate (CARAFATE) 1 gram tablet Carafate 1 gram tablet Take 1 tablet twice a day by oral route. - CALCIUM CITRATE ORAL Take by mouth. (more content not included)... Normal [facility] Vital Signs Date Time Vital Sign Value Performing Clinician Facility 03-24-2025 12:08-0400 Body height 149.9 cm Homero Moses MD Work Phone: [facility] 03-24-2025 12:08-0400 Body mass index (BMI) [Ratio] 27.47 kg/m2 Homero Moses MD Work Phone: [facility] 03-24-2025 12:08-0400 Body weight 61.69 kg Homero Moses MD Work Phone: [facility] 03-15-2025 14:34-0400 Body height 149.9 cm Homero Moses MD Work Phone: [facility] 03-15-2025 14:34-0400 Body mass index (BMI) [Ratio] 27.59 kg/m2 Homero Moses MD Work Phone: [facility] 03-15-2025 14:34-0400 Body weight 61.96 kg Homero Moses MD Work Phone: [facility] 02-03-2025 09:16-0400 Body height 149.9 cm Homero Moses MD Work Phone: [facility] 02-03-2025 09:16-0400 Body mass index (BMI) [Ratio] 27.83 kg/m2 Homero Moses MD Work Phone: [facility] 02-03-2025 09:16-0400 Body weight 62.51 kg Homero Moses MD Work Phone: [facility] 02-03-2025 09:16-0400 Diastolic blood pressure 78 mm[Hg] Homero Moses MD Work Phone: [facility] 02-03-2025 09:16-0400 Systolic blood pressure 122 mm[Hg] Homero Moses MD Work Phone: [facility] 12-02-2024 09:38-0500 Body height 149.9 cm Homero Moses MD Work Phone: [facility] 12-02-2024 09:38-0500 Body mass index (BMI) [Ratio] 26.66 kg/m2 Homero Moses MD Work Phone: [facility] 12-02-2024 09:38-0500 Body weight 59.88 kg Homero Moses MD Work Phone: [facility] 10-06-2024 14:50-0500 Body height 149.9 cm Homero Moses MD Work Phone: [facility] 10-06-2024 14:50-0500 Body mass index (BMI) [Ratio] 26.66 kg/m2 Homero Moses MD Work Phone: [facility] 10-06-2024 14:50-0500 Body weight 59.88 kg Homero Moses MD Work Phone: [facility] 09-10-2024 11:41-0500 Body height 149.9 cm Homero Moses MD Work Phone: [facility] 09-10-2024 11:41-0500 Body mass index (BMI) [Ratio] 26.82 kg/m2 Homero Moses MD Work Phone: [facility] [facility] 09-10-2024 11:41-0500 Body weight 60.24 kg Homero Moses MD Work Phone: [facility] 08-10-2024 10:20-0500 Diastolic blood pressure 86 mm[Hg] Homero Moses MD Work Phone: [facility] 08-10-2024 10:20-0500 Heart rate 83 /min Homero Moses MD Work Phone: [facility] 08-10-2024 10:20-0500 SaO2% (BldA) [Mass fraction] 99 % Homero Moses MD Work Phone: [facility] 08-10-2024 10:20-0500 Systolic blood pressure 136 mm[Hg] Homero Moses MD Work Phone: [facility] 08-04-2024 14:26-0500 Body height 149.9 cm Homero Moses MD Work Phone: [facility] 08-04-2024 14:26-0500 Body mass index (BMI) [Ratio] 27.27 kg/m2 Homero Moses MD Work Phone: [facility] 08-04-2024 14:26-0500 Body weight 61.24 kg Homero Moses MD Work Phone: [facility] 07-27-2024 09:40-0400 Body height 149.9 cm Argentina Clemons MD Work Phone: [facility] 07-27-2024 09:40-0400 Body mass index (BMI) [Ratio] 27.27 kg/m2 Argentina Clemons MD Work Phone: [facility] 07-27-2024 09:40-0400 Body weight 61.24 kg Argentina Clemons MD Work Phone: [facility] 07-27-2024 09:40-0400 Diastolic blood pressure 74 mm[Hg] Argentina Clemons MD Work Phone: [facility] 07-27-2024 09:40-0400 Systolic blood pressure 148 mm[Hg] Argentina Clemons MD Work Phone: [facility] 07-21-2024 10:36-0400 Body height 149.9 cm Homero Msoes MD Work Phone: [facility] 07-21-2024 10:36-0400 Body mass index (BMI) [Ratio] 26.26 kg/m2 Homero Moses MD Work Phone: [facility] 07-21-2024 10:36-0400 Body weight 58.97 kg Homero Moses MD Work Phone: [facility] 07-14-2024 12:03-0400 Body height 149.9 cm Homero Moses MD Work Phone: [facility] 07-14-2024 12:03-0400 Body mass index (BMI) [Ratio] 26.26 kg/m2 Homero Moses MD Work Phone: [facility] 07-14-2024 12:03-0400 Body weight 58.97 kg Homero Moses MD Work Phone: [facility] 06-23-2024 08:46-0400 Body height 149.9 cm Homero Moses MD Work Phone: [facility] 06-23-2024 08:46-0400 Body mass index (BMI) [Ratio] 26.26 kg/m2 Homero Moses MD Work Phone: [facility] 06-23-2024 08:46-0400 Body weight 58.97 kg Homero Moses MD Work Phone: [facility] 06-23-2024 08:46-0400 Diastolic blood pressure 70 mm[Hg] Homero Moses MD Work Phone: [facility] 06-23-2024 08:46-0400 Heart rate 83 /min Homero Moses MD Work Phone: [facility] 06-23-2024 08:46-0400 SaO2% (BldA) [Mass fraction] 97 % Homero Moses MD Work Phone: [facility] 06-23-2024 08:46-0400 Systolic blood pressure 120 mm[Hg] Homero Moses MD Work Phone: [facility] 03-24-2024 13:59-0400 Blood Pressure Location NATHALIE LARIOS [facility] 03-24-2024 13:59-0400 Diastolic blood pressure 76 mm[Hg] NATHALIE LARIOS [facility] 03-24-2024 13:59-0400 Heart rate 80 /min NATHALIE LARIOS [facility] 03-24-2024 13:59-0400 Respiratory rate 16 /min NATHALIE ROBERT [facility] 03-24-2024 13:59-0400 Systolic blood pressure 127 mm[Hg] NATHALIE ROBERT [facility] 01-21-2024 15:09-0400 Blood Pressure Location NATHALIE ROBERT [facility] 01-21-2024 15:09-0400 Body temperature 98.06 [degF] NATHALIE ROBERT [facility] 01-21-2024 15:09-0400 Diastolic blood pressure 58 mm[Hg] NATHALIE ROBERT [facility] 01-21-2024 15:09-0400 Heart rate 84 /min NATHALIE ROBERT [facility] 01-21-2024 15:09-0400 Respiratory rate 16 /min NATHALIE ROBERT [facility] 01-21-2024 15:09-0400 Systolic blood pressure 112 mm[Hg] NATHALIE ROBERT [facility] 11-06-2023 11:02-0500 Body height 149.9 cm Homero Moses MD Work Phone: [facility] 11-06-2023 11:02-0500 Body mass index (BMI) [Ratio] 27.27 kg/m2 Homero Moses MD Work Phone: [facility] 11-06-2023 11:02-0500 Body weight 61.24 kg Homero Moses MD Work Phone: [facility] 01-16-2023 15:29-0400 Blood Pressure Location NATHALIE LARIOS [facility] 01-16-2023 15:29-0400 Diastolic blood pressure 74 mm[Hg] NATHALIE ROBERT [facility] 01-16-2023 15:29-0400 Heart rate 68 /min NATHALIE ROBERT [facility] 01-16-2023 15:29-0400 Respiratory rate 16 /min NATHALIE ROBERT [facility] 01-16-2023 15:29-0400 Systolic blood pressure 128 mm[Hg] NATHALIE ROBERT [facility] 10-10-2022 09:09-0500 Blood Pressure Location Milly Jolley [facility] 10-10-2022 09:09-0500 Diastolic blood pressure 70 mm[Hg] Milly Jolley [facility] 10-10-2022 09:09-0500 Heart rate 76 /min Milly Jolley [facility] 10-10-2022 09:09-0500 Respiratory rate 16 /min Milly Jolley [facility] 10-10-2022 09:09-0500 Systolic blood pressure 117 mm[Hg] Milly Jolley [facility] 01-11-2022 12:33-0400 Body height 149.9 cm Pranav Bermudez MD Work Phone: [facility] 01-11-2022 12:33-0400 Body temperature 97.11 [degF] Pranav Bermudez MD Work Phone: [facility] 01-11-2022 12:33-0400 Body weight 61.96 kg Pranav Bermudez MD Work Phone: [facility] 01-11-2022 12:33-0400 Diastolic blood pressure 79 mm[Hg] Pranav Bermudez MD Work Phone: [facility] 01-11-2022 12:33-0400 Heart rate 81 /min Pranav Bermudez MD Work Phone: [facility] 01-11-2022 12:33-0400 Respiratory rate 16 /min Pranav Bermudez MD Work Phone: [facility] 01-11-2022 12:33-0400 SaO2% (BldA) [Mass fraction] 98 % Pranav Bermudez MD Work Phone: [facility] 01-11-2022 12:33-0400 Systolic blood pressure 131 mm[Hg] Pranav Bermudez MD Work Phone: [facility] Encounters Encounter Date Encounter Type Care Provider Facility Start: 04-28-2025 End: 04-28-2025 ambulatory HOMERO MOSES Not Available Start: 04-28-2025 End: 04-28-2025 Bamboo flowsheet Homero Moses MD Work Phone: [address] Start: 04-28-2025 End: 04-28-2025 Bamboo flowsheet Homero Moses MD Work Phone: [address] Start: 04-28-2025 End: 04-28-2025 Clinisync Result Encounter Homero Moses MD Work Phone: [facility] Unsolicited Start: 04-22-2025 End: 04-22-2025 Clinisync Result Encounter Homero Moses MD Work Phone: [facility] Unsolicited Start: 04-22-2025 End: 04-22-2025 Clinisync Result Encounter Homero Moses MD Work Phone: [facility] Unsolicited Start: 04-13-2025 End: 04-13-2025 ambulatory HOMERO MOSES Not Available Start: 04-12-2025 End: 04-12-2025 Telephone encounter Homero Moses MD Work Phone: [facility] Start: 03-24-2025 End: 03-24-2025 Bamboo flowsheet Homero Moses MD Work Phone: [facility] Start: 03-24-2025 End: 03-24-2025 Bamboo flowsheet Homero Moses MD Work Phone: [facility] Start: 03-24-2025 End: 03-24-2025 ambulatory HOMERO MOSES Not Available Start: 03-24-2025 End: 03-24-2025 Office outpatient visit 25 minutes Homero Moses MD Work Phone: [facility] Comment on above: Euthyroid sick syndr ome (Primary Dx); Acquired central hypothyroidism ; Chronic fatigue; Recurrent major depressive disorder, in partial remission ; Alzheimer's disease with late onset (CODE) (HCC); Dermatitis; Sleep initiation disorder Start: 03-15-2025 End: 03-15-2025 ambulatory HOMERO MOSES Not Available Start: 03-15-2025 End: 03-15-2025 Office outpatient visit 15 minutes Homero Moses MD Work Phone: [facility] Comment on above: Dermatitis (Primary Dx); Non-seasonal allergic rhinitis due to other allergic trigger Start: 03-15-2025 End: 03-15-2025 Bamboo flowsheet Homero Moses MD Work Phone: [facility] Start: 03-15-2025 End: 03-15-2025 Bamboo flowsheet Homero Moses MD Work Phone: [facility] Start: 02-03-2025 End: 02-03-2025 Bamboo flowsheet Homero Moses MD Work Phone: [facility] Start: 02-03-2025 End: 02-03-2025 Bamboo flowsheet Homero Moses MD Work Phone: [facility] Start: 02-03-2025 End: 02-03-2025 Office outpatient visit 25 minutes Homero Moses MD Work Phone: [facility] Comment on above: Primary hypertension (CMS/HCC); Mixed dyslipidemia (CMS/HCC); Myalgia due to statin; Gastroesophageal reflux disease without esophagitis Start: 02-03-2025 End: 02-03-2025 ambulatory HOMERO MOSES Not Available Start: 01-29-2025 End: 01-29-2025 Clinisync Result Encounter Homero Moses MD Work Phone: [facility] Unsolicited Start: 01-29-2025 End: 01-29-2025 Clinisync Result Encounter Homero Moses MD Work Phone: [facility] Unsolicited Start: 12-02-2024 End: 12-02-2024 Bamboo flowsheet Homero Moses MD Work Phone: [facility] Start: 12-02-2024 End: 12-02-2024 Bamboo flowsheet Homero Moses MD Work Phone: [facility] Start: 12-02-2024 End: 12-02-2024 ambulatory HOMERO MOSES Not Available Start: 12-02-2024 End: 12-02-2024 Office outpatient visit 25 minutes Homero Moses MD Work Phone: [facility] Comment on above: Walking pneumonia (P rimary Dx); 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 Start: 12-01-2024 End: 12-01-2024 Patient encounter procedure Aldair RIOJAS [facility] Start: 11-10-2024 End: 11-10-2024 ambulatory Aldair RIOJAS Facility:[facility] Start: 11-10-2024 End: 11-10-2024 Patient encounter procedure Aldair RIOJAS [facility] Start: 10-06-2024 End: 10-06-2024 Office outpatient visit 25 minutes Homero Moses MD Work Phone: [facility] Comment on above: Chronic pain syndrom e (Primary Dx); Lumbosacral radiculopathy due to degenerative joint disease of spine; Closed wedge compression fracture of L1 vertebra, sequela; Controlled substance agreement signed; Medication monitoring encounter; Sleep initiation disorder; Polypharmacy; Overweight Start: 10-06-2024 End: 10-06-2024 ambulatory HOMERO MOSES Not Available Start: 10-06-2024 End: 10-06-2024 Bamboo flowsheet Homero Moses MD Work Phone: [facility] Start: 10-06-2024 End: 10-06-2024 Bamboo flowsheet Homero Moses MD Work Phone: [facility] Start: 09-21-2024 End: 09-21-2024 Refill Homero Moses MD Work Phone: [facility] Comment on above: Primary hypertension (CMS/HCC) Start: 09-10-2024 End: 09-10-2024 Lab Drop off Aldair RIOJAS [facility] Start: 09-10-2024 End: 09-10-2024 ambulatory Aldair RIOJAS [place] [place]: 09-10-2024 End: 09-10-2024 Patient encounter procedure Aldair RIOJAS [facility] Start: 09-10-2024 End: 09-10-2024 Bamboo flowsheet Homero Moses MD Work Phone: [facility] Start: 09-10-2024 End: 09-10-2024 Bamboo flowsheet Homero Moses MD Work Phone: [facility] Start: 09-10-2024 End: 09-10-2024 ambulatory HOMERO MOSES Not Available Start: 09-10-2024 End: 09-10-2024 Office outpatient visit 40 minutes Homero Moses MD Work Phone: [facility] Comment on above: Acquired central hyp othyroidism (CMS/HCC) (Primary Dx); Euthyroid sick syndrome; Chronic fatigue; 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); Chronic pain syndrome; Closed wedge compression fracture of L1 vertebra, initial encounter (HCC) (CMS/HCC); Lumbosacral radiculopathy due to degenerative joint disease of spine; Osteoarthritis of spine with radiculopathy, lumbar region; Atherosclerosis of aorta (CMS/HCC) Start: 09-09-2024 End: 09-09-2024 ambulatory Zoë Dempseyy [employer] [facility] Comment on above: Fall, sequela (Prima ry Dx); Lumbosacral radiculopathy at L5; Lumbosacral radiculopathy at S1; Right sided sciatica Start: 09-02-2024 End: 09-02-2024 ambulatory ZOË DEMPSEYY Not Available Start: 09-02-2024 End: 09-02-2024 ambulatory Zoë Dempseyy [employer] [facility] Comment on above: Fall, sequela (Prima ry Dx); Lumbosacral radiculopathy at L5; Lumbosacral radiculopathy at S1; Right sided sciatica Start: 08-25-2024 End: 08-25-2024 ambulatory Zoë Dempseyy [employer] [facility] Comment on above: Fall, sequela (Prima ry Dx); Lumbosacral radiculopathy at L5; Lumbosacral radiculopathy at S1; Right sided sciatica Start: 08-21-2024 End: 12-09-2024 Pre-admission assessment Aldair RIOJAS [facility] Start: 08-20-2024 End: 08-20-2024 Telephone encounter Kellen Martinez MA [facility] Comment on above: Care Coordination Start: 08-18-2024 End: 08-18-2024 ambulatory Aldair RIOJAS [place] Start: 08-12-2024 End: 08-12-2024 Bamboo flowsheet Torie Ann PT Work Phone: [facility] Start: 08-12-2024 End: 08-12-2024 Bamboo flowsheet Torie Ann PT Work Phone: [facility] Start: 08-12-2024 End: 08-12-2024 ambulatory Torie Ann PT Work Phone: [facility] Comment on above: Fall, sequela (Prima ry Dx); Lumbosacral radiculopathy at L5; Lumbosacral radiculopathy at S1; Right sided sciatica Start: 08-10-2024 End: 08-10-2024 Bamboo flowsheet Homero Moses MD Work Phone: [facility] Start: 08-10-2024 End: 08-10-2024 Bamboo flowsheet Homero Moses MD Work Phone: [facility] Start: 08-10-2024 End: 08-10-2024 Office outpatient visit 25 minutes Homero Moses MD Work Phone: [facility] Comment on above: Primary hypertension (CMS/HCC) (Primary Dx); Atherosclerosis of [place] coronary artery of [place] heart without angina pectoris (CMS/HCC); Mixed dyslipidemia (CMS/HCC); Myalgia due to statin; Gastroesophageal reflux disease without esophagitis; Sleep initiation disorder Start: 08-10-2024 End: 08-10-2024 ambulatory HOMERO MOSES Not Available Start: 08-07-2024 End: 08-07-2024 Bamboo flowsheet Art Amin PT Work Phone: [facility] Start: 08-07-2024 End: 08-07-2024 Bamboo flowsheet Art Amin PT Work Phone: [facility] Start: 08-07-2024 End: 08-07-2024 ambulatory Art Amin PT Work Phone: [facility] Comment on above: Fall, sequela; Lumbosacral radiculopathy at L5; Lumbosacral radiculopathy at S1; Right sided sciatica Start: 08-05-2024 End: 08-05-2024 Telephone encounter Torie Ann PT Work Phone: [facility] Comment on above: PT Initial Eval (/Tr ied to contact to set up PT Eval for Fall, sequela, Lumbosacral radiculopathy at L5, Lumbosacral radiculopathy at S1, Right sided sciatica. I had to lm requesting a call back.//); Call Back (She contacted and we scheduled PT Eval for 08/07/24; noted copay.) Start: 08-04-2024 End: 08-04-2024 Office outpatient visit 25 minutes Homero Moses MD Work Phone: [facility] Comment on above: Fall, sequela; Lumbosacral radiculopathy at L5; Lumbosacral radiculopathy at S1; Right sided sciatica Start: 08-04-2024 End: 08-04-2024 ambulatory HOMERO MOSES Not Available Start: 08-04-2024 End: 08-04-2024 Bamboo flowsheet Homero Moses MD Work Phone: [facility] Start: 08-04-2024 End: 08-04-2024 Bamboo flowsheet Homero Moses MD Work Phone: [facility] Start: 07-27-2024 End: 07-27-2024 Bamboo flowsheet Argentina Clemons MD Work Phone: [facility] Start: 07-27-2024 End: 07-27-2024 Bamboo flowsheet Argentina Clemons MD Work Phone: [facility] Start: 07-27-2024 End: 07-27-2024 ambulatory ARGENTINA CLEMONS Not Available Start: 07-27-2024 End: 07-27-2024 Office outpatient new 30 minutes Argentina Clemons MD Work Phone: [facility] Comment on above: Pharyngeal mass Start: 07-21-2024 End: 07-21-2024 ambulatory HOMERO MOSES Not Available Start: 07-21-2024 End: 07-21-2024 Office outpatient visit 25 minutes Homero Moses MD Work Phone: [facility] Comment on above: Fall, initial encoun ter; Lumbosacral radiculopathy at L5; Lumbosacral radiculopathy at S1; Acute pain of right foot; Right hip pain Start: 07-14-2024 End: 07-14-2024 Bamboo flowsheet Homero Moses MD Work Phone: [facility] Start: 07-14-2024 End: 07-14-2024 Bamboo flowsheet Homero Moses MD Work Phone: [facility] Start: 07-14-2024 End: 07-14-2024 ambulatory HOMERO MOSES Not Available Start: 07-14-2024 End: 07-14-2024 Office outpatient visit 25 minutes Homero Moses MD Work Phone: [facility] Comment on above: [id number] condit ion (Primary Dx); Rhinorrhea; Enlarged tonsils; Myalgia, multiple sites; Overweight Start: 06-23-2024 End: 06-23-2024 Bamboo flowsheet Homreo Moses MD Work Phone: [facility] Start: 06-23-2024 End: 06-23-2024 Bamboo flowsheet Homero Moses MD Work Phone: [facility] Start: 06-23-2024 End: 06-23-2024 Office outpatient visit 15 minutes Homero Moses MD Work Phone: [facility] Comment on above: COVID-19 (Primary Dx ) Start: 06-23-2024 End: 06-23-2024 ambulatory HOMERO MOSES Not Available Start: 06-15-2024 End: 06-15-2024 Telephone encounter Homero Moses MD Work Phone: [facility] Start: 05-14-2024 End: 06-24-2024 Pre-admission assessment Aldair RIOJAS [facility] Start: 05-04-2024 End: 05-04-2024 ambulatory HOMERO MOSES Not Available Start: 03-24-2024 End: 03-24-2024 ambulatory NATHALIE E ROBERT Facility:[facility] Start: 03-24-2024 End: 03-24-2024 Patient encounter procedure NATHALIE E ROBERT [facility] Start: 01-21-2024 End: 01-21-2024 ambulatory NATHALIE E ROBERT Facility:[facility] Start: 01-21-2024 End: 01-21-2024 Patient encounter procedure NATHALIE E ROBERT [facility] Start: 11-06-2023 Bamboo flowsheet Homero sharma MD Work Phone: [facility] Start: 11-06-2023 Bamboo flowsheet Homero sharma MD Work Phone: [facility] Start: 11-06-2023 End: 11-06-2023 Office outpatient visit 25 minutes Homero Moses MD Work Phone: [facility] Comment on above: Cerebral meningioma (CMS/HCC) (Primary Dx); 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 Facility:[facility] Start: 01-16-2023 End: 01-16-2023 Patient encounter procedure NATHALIE LARIOS [facility] Start: 10-10-2022 End: 10-10-2022 Patient encounter procedure Milly Jolley [facility] Start: 08-29-2022 End: 08-30-2022 ambulatory [...] Start: 01-11-2022 End: 01-11-2022 ambulatory Lab/[facility] Jefe Singh Work Phone: Hematology/Oncology Comment on above: Age-related [...] End: 04-28-2021 Subsequent hospital visit by physician [facility] Billie (1.5t) Work Phone: Radiology Comment on above: Diplopia [H53.2] Start: 01-07-2018 End: 01-08-2018 Ambulatory DEFAULT PHYSICIAN Facility:[email or web address] Procedures Date Procedure Procedure Detail Performing Clinician Start: 04-28-2025 ALL CBC WITH AUTO DIFF Homero Moses MD Work Phone: Start: 04-22-2025 C. DIFFICILE PCR Homero Moses MD Work Phone: Start: 01-29-2025 ALL LIPID PROFILE (FASTING) Homero Moses MD Work Phone: Start: 01-29-2025 [facility] CMP (CMP) (FOR R EMOTE [facility] USE) Homero Moses MD Work Phone: Start: 10-06-2024 Drug test prsmv read direct optical obs pr date Homero Moses MD Work Phone: Start: 04-28-2021 Mri brain brain stem w/o [...] sling Milly Jolley Start: 09-30-1988 H/O: hysterectomy Levar Jolley Start: 09-30-1975 Bilateral tubal ligation Milly Jolley Appendectomy Milly felix Bilateral carpal fozia chandni syndrome (disorder) Milly Jolley Bilateral cataracts (disorder) Milly Jolley Colonoscopy Milly felix Cystoscopy Milly felix Tonsillectomy Milly elizabeth Plan of Treatment Date Care Activity Detail Author Start: 03-24-2026 Pneumococcal Vaccine : 65+ Years (1 of 2 - PCV) Pneumococcal Vaccine: 65+ Years (1 of 2 - PCV) [facility] Comment on above: Postponed from 11/28 (Patient Refused) Start: 03-24-2026 Pneumococcal Vaccine : 65+ Years (2 of 2 - PCV) Pneumococcal Vaccine: 65+ Years (2 of 2 - PCV) [facility] Comment on above: Postponed from 07/25 (Patient Refused) Start: 09-14-2025 End: 09-14-2025 Patient encounter procedure [facility] Start: 08-24-2025 End: 03-24-2026 T3, reverse T3, reverse Lab Routine Euthyroid sick syndrome Acquired central hypothyroidism Chronic fatigue Expected: 08/24/2025 (Approximate), Expires: 03/24/2026 [facility] Comment on above: Expected: 08/24/2025 (Approximate), Expires: 03/24/2026 Start: 08-24-2025 End: 03-24-2026 Thyroxine (T4) free [Mass/volume] in Serum or Plasma T4, free Lab Routine Euthyroid sick syndrome Acquired central hypothyroidism Chronic fatigue Expected: 08/24/2025 (Approximate), Expires: 03/24/2026 [facility] Comment on above: Expected: 08/24/2025 (Approximate), Expires: 03/24/2026 Start: 08-24-2025 End: 03-24-2026 Triiodothyronine (T3) [Mass/volume] in Serum or Plasma T3 Lab Routine Euthyroid sick syndrome Acquired central hypothyroidism Chronic fatigue Expected: 08/24/2025 (Approximate), Expires: 03/24/2026 [facility] Work Phone: Comment on above: Expected: 08/24/2025 (Approximate), Expires: 03/24/2026 Start: 08-24-2025 End: 03-24-2026 Triiodothyronine (T3) Free [Mass/volume] in Serum or Plasma T3, free Lab Routine Euthyroid sick syndrome Acquired central hypothyroidism Chronic fatigue Expected: 08/24/2025 (Approximate), Expires: 03/24/2026 [facility] Comment on above: Expected: 08/24/2025 (Approximate), Expires: 03/24/2026 Start: 07-28-2025 End: 07-28-2025 Patient encounter procedure [facility] Start: 05-31-2025 Influenza vaccination [facility] Start: 04-28-2025 End: 04-28-2025 Patient encounter procedure 04/28/2025 3:00 PM EDT Office Visit [address] [facility] [address] [place] [address] Homero Moses MD [address] [facility] [address] [place] [address] Recurrent major depressive disorder, in partial remission ; Sleep initiation disorder; White matter disease; 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); Overweight [address] Comment on above: Recurrent major depr essive disorder, in partial remission ; Sleep initiation disorder; White matter disease; 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); Overweight Start: 04-12-2025 End: 04-12-2026 XR Abdomen Single view XR ABDOMEN 2 VIEW Imaging Routine Full incontinence of feces Expected: 04/12/2025 (Approximate), Expires: 04/12/2026 [facility] Work Phone: Comment on above: Expected: 04/12/2025 (Approximate), Expires: 04/12/2026 Start: 03-11-2025 End: 09-10-2025 T3, reverse T3, reverse Lab Routine Euthyroid sick syndrome Chronic fatigue Expected: 03/11/2025 (Approximate), Expires: 09/10/2025 [facility] Comment on above: Expected: 03/11/2025 (Approximate), Expires: 09/10/2025 Start: 03-11-2025 End: 09-10-2025 Thyrotropin [Units/volume] in Serum or Plasma TSH Lab Routine Acquired central hypothyroidism (CMS/HCC) Chronic fatigue Expected: 03/11/2025 (Approximate), Expires: 09/10/2025 [facility] Comment on above: Expected: 03/11/2025 (Approximate), Expires: 09/10/2025 Start: 03-11-2025 End: 09-10-2025 Thyroxine (T4) free [Mass/volume] in Serum or Plasma T4, free Lab Routine Acquired central hypothyroidism (CMS/HCC) Chronic fatigue Expected: 03/11/2025 (Approximate), Expires: 09/10/2025 [facility] Comment on above: Expected: 03/11/2025 (Approximate), Expires: 09/10/2025 Start: 03-11-2025 End: 09-10-2025 Triiodothyronine (T3) [Mass/volume] in Serum or Plasma T3 Lab Routine Euthyroid sick syndrome Chronic fatigue Expected: 03/11/2025 (Approximate), Expires: 09/10/2025 [facility] Work Phone: Comment on above: Expected: 03/11/2025 (Approximate), Expires: 09/10/2025 Start: 03-11-2025 End: 09-10-2025 Triiodothyronine (T3) Free [Mass/volume] in Serum or Plasma T3, free Lab Routine Euthyroid sick syndrome Chronic fatigue Expected: 03/11/2025 (Approximate), Expires: 09/10/2025 [facility] Comment on above: Expected: 03/11/2025 (Approximate), Expires: 09/10/2025 Start: 03-04-2025 End: 03-04-2025 Patient encounter procedure [facility] Start: 02-03-2025 End: 02-03-2025 Patient encounter procedure [facility] Comment on above: Primary hypertension (CMS/HCC); Mixed dyslipidemia (CMS/HCC); Myalgia due to statin; Gastroesophageal reflux disease without esophagitis Start: 01-11-2025 DIABETES SCREEN DIABETES SCREEN [facility] Start: 01-11-2025 Diabetes Screening Diabetes Screenin g [facility] Start: 12-24-2024 ambulatory Ambulatory Facility:[facility] Start: 10-06-2024 End: 10-06-2024 Patient encounter procedure 10/06/2024 3:00 PM EST Office Visit [facility] [address] [place] [address] Homero Moses MD [address] [place] [address] Chronic pain syndrome; Closed wedge compression fracture of L1 vertebra, sequela; Overweight [facility] Comment on above: Chronic pain syndrom e; Closed wedge compression fracture of L1 vertebra, sequela; Overweight Start: 10-06-2024 ambulatory Ambulatory Facility:[facility] Start: 10-02-2024 ambulatory Ambulatory Facility:[facility] Start: 09-16-2024 End: 09-16-2024 ambulatory 09/16/2024 11:00 AM EST Treatment [facility] [address] [place] [address] Zoë Glass, SALES AGENT [employer] [facility] Start: 09-10-2024 End: 09-10-2024 Patient encounter procedure [facility] Start: 09-09-2024 End: 09-09-2024 ambulatory 09/09/2024 7:30 AM EST Treatment [facility] [address] [place] [address] Zoë Glass SALES AGENT [employer] [facility] Start: 09-02-2024 End: 09-02-2024 ambulatory 09/02/2024 7:30 AM EST Treatment [facility] [address] [place] [address] Torie Ann, PT [address] [place] [address] [facility] Start: 08-25-2024 End: 08-25-2024 ambulatory 08/25/2024 7:00 AM EST Treatment [facility] [address] [place] [address] Zoë Glass, SALES AGENT [employer] [facility] Start: 08-19-2024 End: 08-19-2024 ambulatory [facility] Start: 08-12-2024 End: 08-12-2024 ambulatory 08/12/2024 7:30 AM EST Treatment [facility] [address] [facility] [address] [place] [address] Torie Ann, PT [address] [facility] [address] [place] [address] [facility] Start: 08-10-2024 End: 08-10-2024 Patient encounter procedure 08/10/2024 10:30 AM EST Office Visit [facility] [address] [facility] [address] [place] [address] Homero Moses MD [address] [place] [phone] (Fax) [facility] Start: 08-07-2024 End: 08-07-2024 ambulatory 08/07/2024 9:00 AM EST Evaluation [facility] [address] [facility] [address] [place] [address] Art Amin, PT [address] [place] [address] [facility] Start: 08-04-2024 End: 08-04-2024 Patient encounter procedure 08/04/2024 2:30 PM EST Office Visit [facility] [address] [facility] [address] [place] [address] Homero Moses MD [address] [place] [phone] (Fax) Fall, sequela; Lumbosacral radiculopathy at L5; Lumbosacral radiculopathy at S1; Right sided sciatica [facility] 100 Comment on above: Fall, sequela; Lumbosacral radiculopathy at L5; Lumbosacral radiculopathy at S1; Right sided sciatica Start: 08-04-2024 End: 08-04-2025 XR Lumbar spine 4 Views XR lumbar spine complete 4+ views Imaging Routine Fall, sequela Lumbosacral radiculopathy at L5 Lumbosacral radiculopathy at S1 Right sided sciatica Expected: 08/04/2024 (Approximate), Expires: 08/04/2025 [facility] Work Phone: Comment on above: Expected: 08/04/2024 (Approximate), Expires: 08/04/2025 Start: 07-21-2024 End: 07-21-2025 XR Hip - right 3 Views XR hip right 2 or 3 views Imaging Routine Right hip pain Expected: 07/21/2024, Expires: 07/21/2025 [facility] Work Phone: Comment on above: Expected: 07/21/2024 , Expires: 07/21/2025 Start: 06-23-2024 End: 06-23-2024 Patient encounter procedure 06/23/2024 8:45 AM EDT Office Visit [facility] [address] [address] Homero Moses MD [address] [place] [address] (Fax) Arrived [facility] Comment on above: Arrived Start: 05-31-2024 Covid-19 Vaccine ( season) Covid-19 Vaccine ( season) [facility] Start: 05-31-2024 Influenza vaccination Influenza Vacc ine (#1) [facility] Start: 01-30-2024 End: 01-30-2024 Patient encounter procedure 01/30/2024 10:30 AM EDT Office Visit [facility] [address] [place] [address] Homero Moses MD [address] [place] [address] (Fax) [facility] Start: 12-14-2023 Medicare Annual Well ness (AWV) Medicare Annual Wellness (AWV) [facility] Start: 11-06-2023 End: 11-06-2023 Patient encounter procedure [facility] Comment on above: 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); White matter disease; Chronic fatigue; Overweight Start: 09-30-2023 Advance Directive Discussion Advance Directive Discussion [facility] Start: 05-31-2023 Influenza vaccination Influenza Vacc ine (#1) [facility] Start: 07-13-2022 End: 01-11-2023 CBC W Auto Differential panel - Blood CBC + DIFF Lab Routine Malignant neoplasm of right breast in female, estrogen receptor positive, unspecified site of breast (HCC) Osteoporosis due to aromatase inhibitor Expected: 07/13/2022 (Approximate), Expires: 01/11/2023 [facility] Work Phone: Comment on above: Expected: 07/13/2022 (Approximate), Expires: 01/11/2023 Start: 07-13-2022 End: 01-11-2023 Comprehensive metabolic 2000 panel - Serum or Plasma COMP METABOLIC PANEL Lab Routine Malignant neoplasm of right breast in female, estrogen receptor positive, unspecified site of breast (HCC) Osteoporosis due to aromatase inhibitor Expected: 07/13/2022 (Approximate), Expires: 01/11/2023 [facility] Work Phone: Comment on above: Expected: 07/13/2022 (Approximate), Expires: 01/11/2023 Start: 09-30-2021 ADVANCE DIRECTIVE DISCUSSION ADVANCE DIRECTIVE DISCUSSION [facility] Start: 06-10-2020 Adult depression scr eening assessment DEPRESSION SCREENING [facility] Start: 2016 RSV Vaccine (1 - 1-d ose 75+ series) RSV Vaccine (1 - 1-dose 75+ series) [facility] Start: 2006 BONE DENSITY BONE DENSITY [facility] Start: 2006 Pneumococcal Vaccine : 65+ (1 of 1 - PCV) Pneumococcal Vaccine: 65+ (1 of 1 - PCV) [facility] Start: 2006 PNEUMOVAX AGE 65 AND OVER WITH 5YR LOOKBACK (#1) PNEUMOVAX AGE 65 AND OVER WITH 5YR LOOKBACK (#1) [facility] Start: 2006 Screening for osteoporosis Bone Dens ity Screening [facility] Start: 11-29-1991 SHINGRIX VACCINE (1 of 2) MCALLISTER GRIX VACCINE (1 of 2) [facility] Start: 1960 Pneumococcal Vaccine : 65+ Years (1 of 2 - PCV) Pneumococcal Vaccine: 65+ Years (1 of 2 - PCV) [facility] Start: 1960 Urine microalbumin profile [facility] Start: 11-29-1959 Anxiety Screening Anxiety Screening [facility] Start: 11-29-1959 Depression Screening Depression Scre ening [facility] Start: 11-29-1947 Pneumococcal Vaccine : 65+ Years (1 - PCV) Pneumococcal Vaccine: 65+ Years (1 - PCV) [facility] Start: 11-29-1947 Pneumococcal Vaccine : 65+ Years (1 of 2 - PCV) Pneumococcal Vaccine: 65+ Years (1 of 2 - PCV) [facility] Start: 11-29-1947 PNEUMOCOCCAL: 65+ (1 - PCV) PNEUMOCOCCAL: 65+ (1 - PCV) [facility] End: 03-31-2023 Diagnostic mammography computer-aided detcj bi RIA DIAGNOSTIC BILAT Radiology Routine Malignant neoplasm of lower-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, estrogen receptor positive (HCC) 1 Occurrences starting 03/01/2022 until 03/31/2023 [facility] Work Phone: Comment on above: 1 Occurrences starti 03/01/2022 until 03/31/[facility] Immunization Date Immunization Notes Care Provider [facility] 08-25-2024 RSV, recombinant, protein subunit RSVpreF, adjuvant reconstitu, 120mcg/0.5mL, PF (Arexvy) Zoë Glass SALES AGENT [employer] [facility] 08-29-2022 SARS-CoV-2 (COVID-19 ) mRNA-1273 vaccine NATHALIE LARIOS [facility] 07-25-2022 influenza virus vacc ine, unspecified formulation NATHALIE LARIOS [facility] 07-25-2022 influenza, injectabl e, quadrivalent, preservative free Homero Moses MD Work Phone: [facility] 08-18-2021 influenza (aIIV4) vaccine, age 65+ yr, quadrivalent, PF (FLUAD QUADRIVALENT) [facility] Work Phone: [facility] 08-18-2021 influenza virus vacc ine, unspecified formulation Milly Jolley [facility] 07-26-2021 SARS-CoV-2 (COVID-19 ) mRNA-1273 vaccine Milly Jolley [facility] 02-28-2021 COVID-19 vaccine, ag e 12+ yr (PFIZER-BIONTECH - PURPLE TOP) [facility] Work Phone: [facility] 02-06-2021 COVID-19 vaccine, ag e 12+ yr (PFIZER-BIONTECH - PURPLE TOP) [facility] Work Phone: [facility] 12-13-2020 COVID-19 vaccine, fu ll dose (MODERNA) [facility] Work Phone: [facility] 12-12-2020 Moderna SARS-CoV-2 Vaccination Homero Moses MD Work Phone: [facility] 11-17-2020 COVID-19 vaccine, fu ll dose (MODERNA) [facility] Work Phone: [facility] 11-16-2020 Moderna SARS-CoV-2 Vaccination Homero Moses MD Work Phone: [facility] 07-04-2020 influenza, high dose seasonal, preservative-free [facility] Work Phone: [facility] 07-13-2019 influenza virus vacc ine, unspecified formulation Milly Jolley [facility] 07-13-2019 influenza, injectabl e, quadrivalent, preservative free [facility] Work Phone: [facility] 10-07-2018 influenza virus vacc ine, unspecified formulation Milly Jolley [facility] 10-07-2018 influenza, high dose seasonal, preservative-free [facility] [place] Work Phone: [facility] 07-07-2018 influenza virus vacc ine, unspecified formulation Milly Jolley [facility] 07-07-2018 influenza, injectabl e, quadrivalent, preservative free [facility] [place] Work Phone: [facility] 07-08-2017 influenza virus vacc ine, unspecified formulation Milly Jolley [facility] 07-08-2017 influenza, high dose seasonal, preservative-free [facility] [place] Work Phone: [facility] 07-08-2017 influenza, injectabl e, quadrivalent, preservative free [facility] [place] Work Phone: [facility] 07-25-2015 pneumococcal polysaccharide vaccine, 23 valent Homero Moses MD Work Phone: [facility] 07-22-2015 influenza, high dose seasonal, preservative-free Homero Moses MD Work Phone: [facility] Payers Date Payer Category Payer Medicare DEVOTED MEDICARE DEVOTED HEALTH [id number] 2020-Present [phone] [address] YANIRA BRASWELL [address] [facility] [id number] 2020 Medicare DEVOTED MEDICARE DEVOTED HEALTH [facility] [id number] 2020-Present [phone] [address] YANIRA BRASWELL [address] [facility] [id number] 2020 Medicare (Managed Care) DEVOTED HEALTH [id number] 2020 Unknown 2020 Unknown [id number] Self-pay 1941 Unknown [id number] 2.16.840.1.048831.3.579. 2.593 1941 Unknown [id number] 2.16.840.1.685949.3.579. 2.593 1941 Unknown [id number] 2.16.840.1.364760.3.579. 2.593 1941 Unknown [id number] 2.16.840.1.413025.3.579. 2.593 1941 Unknown [id number] 2.16.840.1.253857.3.579. 2.593 1941 Unknown [id number] 2.16.840.1.676865.3.579. 2.727 1941 Unknown [id number] 2.16.840.1.868327.3.579. 2.727 1941 Unknown [id number] 2.16.840.1.378796.3.579. 2.727 1941 Unknown [id number] 2.16.840.1.206672.3.579. 2.727 1941 Unknown [id number] 2.16.840.1.387364.3.579. 2.727 1941 Unknown [id number] 2.16.840.1.905154.3.579. 2.727 1941 Unknown [id number] 2.16.840.1.633542.3.579. 2.727 1941 Unknown [id number] 2.16.840.1.787107.3.579. 2.727 1941 Unknown [id number] 2.16.840.1.335328.3.579. 2.727 1941 Unknown [id number] 2.16.840.1.171463.3.579. 2.727 1941 Unknown [id number] 2.16.840.1.650864.3.579. 2.72 1941 Unknown [id number] 2.16.840.1.202819.3.579. 2.125 1941 Unknown [id number] 2.16.840.1.676051.3.579. 2.1258 1941 Unknown [id number] 2.16.840.1.663284.3.579. 2.1258 1941 Unknown [id number] 2.16.840.1.670888.3.579. 2.1258 1941 Unknown [id number] 2.16.840.1.307405.3.579. 2.1258 1941 Unknown [id number] 2.16.840.1.450001.3.579. 2.1258 1941 Unknown [id number] 2.16.840.1.378384.3.579. 2.1258 1941 Unknown [id number] 2.16.840.1.005509.3.579. 2.1258 1941 Unknown [id number] 2.16.840.1.124166.3.579. 2.125 1941 Unknown [id number] 2.16.840.1.388454.3.579. 2.1258 1941 Unknown [id number] 2.16.840.1.000514.3.579. 2.125 1941 Unknown [id number] 2.16.840.1.786548.3.579. 2.1259 1941 Unknown [id number] 2.16.840.1.060150.3.579. 2.1259 1941 Unknown [id number] 2.16.840.1.832700.3.579. 2.1259 1941 Unknown [id number] 2.16.840.1.469659.3.579. 2.9 1941 Unknown [id number] 2.16.840.1.052655.3.579. 2.1259 1941 Unknown [id number] 2.16.840.1.341556.3.579. 2.9 1941 Unknown [id number] 2.16.840.1.838472.3.579. 2.9 1941 Unknown [id number] 2.16.840.1.697236.3.579. 2.1258 1941 Unknown [id number] 2.16.840.1.235053.3.579. 2.1259 Unknown [id number] 2.16.840.1.128585.3.579. 2.593 Social History Date Type Detail Facility Start: 02-06-2018 End: 08-08-2023 Tobacco smoking status NHIS Never smoked tobacco [facility] Start: 02-06-2018 End: 08-08-2023 Tobacco use and exposure Smokeless tobacco non-user [facility] Start: 01-11-2022 End: 04-28-2025 Alcohol intake Current drinker of alcohol (finding) [facility] Start: 01-11-2022 End: 05-01-2024 Alcohol intake [facility] Start: 1941 Sex Assigned At Not on file C [facility] Start: 03-29-2021 End: 01-11-2022 Exposure to SARS-CoV-2 (event) Not sure [facility] Start: 08-12-2023 End: 05-01-2024 Sex Assigned At Female [facility] Tobacco smoking status Never [facility] Start: 05-20-2023 Alcohol Comment Caffeine intak e: [...] 1 occasion? Never [facility] (I/We) worried wheth er (my/our) food would run out before (I/we) got money to buy more. Never true [facility] In the past 12 month s, was there a time when you were not able to pay the mortgage or rent on time? No [facility] Goals Date Patient Goal Desired Activity /State Personal health goal Functional Status Date Assessment Result Facility 04-28-2025 Patient Health Quest ionnaire 2 item (PHQ-2) [Reported] [facility] 03-24-2025 Patient Health Quest ionnaire 2 item (PHQ-2) [Reported] [facility] 02-03-2025 Patient Health Quest ionnaire 2 item (PHQ-2) [Reported] [facility] 03-24-2024 Functional Status N/A [facility] 01-21-2024 Functional Status N/A [facility] 01-16-2023 Functional Status N/A [facility] 10-10-2022 Functional Status N/A [facility] [place] Clinical Notes 04-14-2021 to 04-12-2025 Telephone Encounter - Homero Moses MD - 04/12/2025 3:39 PM EDTTelephone Encounter - Homero Moses MD - 04/12/2025 3:39 PM EDTTelephone Encounter - Leanna Shultz - 04/12/2025 12:15 PM EDT Note Date & Type Note Facility 04-12-2025 Telephone encounter Note I spoke with her and for the last several days she is having thin but not true liquid stools which is unusual for her. Is happening and she is unaware of it sometimes. She has a full feeling like she needs to move her bowels even though with his many episodes she can not imagine there is much more stool in there. We discussed and will proceed with diagnostic imaging with x-ray of the abdomen. Orders placed and patient instructed [facility] 04-12-2025 Miscellaneous Notes I spoke with her and for the last several days she is having thin but not true liquid stools which is unusual for her. Is happening and she is unaware of it sometimes. She has a full feeling like she needs to move her bowels even though with his many episodes she can not imagine there is much more stool in there. We discussed and will proceed with diagnostic imaging with x-ray of the abdomen. Orders placed and patient instructed [facility] called. She has had issues over the weekend of soiling herself yet feels constipated. Please advise. documented in this encounter [facility] 04-12-2025 Telephone encounter Note [facility] called. She has had issues over the weekend of soiling herself yet feels constipated. Please advise. [facility] 03-24-2025 History of Present illness Narrative Images from the original note were not included. Patient ID: [facility] Adames is a 84 y.o. female who presents for: Thyroid: Pt here today to review his/hers thyroid labs and any medication changes needed. Fatigue: Present, Unchanged Weight Gain: Absent Inability to lose weight: Present, Unchanged Hair Changes: Present He/She is following the thyroid diet: Good He/She are taking medications as directed: Good He/She are exercising at least 3 days out of the week for 30 minutes or more: Good Anxiety Patient is here for evaluation of anxiety. He/She has the following anxiety symptoms: difficulty concentrating. Onset of symptoms was approximately several years ago. Symptoms have been unchanged since that time. He/She denies current suicidal and homicidal ideation. Family history significant for no psychiatric illness.Possible organic causes contributing are: none. Previous treatment includes medication Paxil. He/She complains of the following medication side effects: none. Review of Systems Constitutional: Positive for fatigue. Negative for appetite change. HENT: Negative for trouble swallowing and voice change. Cardiovascular: Negative for palpitations. Musculoskeletal: Negative for arthralgias and myalgias. Psychiatric/Behavioral: Negative for sleep disturbance. The patient is not nervous/anxious. Endocrine: Negative for cold intolerance and heat intolerance. Calculated THY Ratio: 6.6 Objective Appearance: Well-groomed, in no acute distress Abnormal body movements: None Affect: Appropriate and appears to be full range Attention: Good Attitude: Cooperative Degree of awareness of surroundings: Grossly within normal limits Impulse control: Appears to be good Insight: Appears to be good Fund of knowledge; adequate Judgment: Appears to be adequate Perceptual disorders: No perceptual disorders noted Psychomotor activity: Within normal range Speech: Clear, normal variability and rate Thought content: Unremarkable Visit Vitals Ht 4' 11 Wt 136 lb BMI 27.47 kg/m OB Status Postmenopausal Smoking Status Never BSA 1.6 m Allergies Allergen Reactions Memantine Other, Tinnitus and GI intolerance Very tired Milk-Related Compounds Other Reaction(s): Unknown Oxycodone-Acetaminophen Other Reaction(s): Mental Status Change makes me crazy Rosuvastatin Myalgia and feeling like she was going to . Simvastatin Other Dysesthesia described as feeling things under her skin, and myalgia Soybean-Containing Drug Products Other Reaction(s): Unknown Wheat Other Reaction(s): Unknown Current Outpatient Medications on File Prior to Visit Medication Sig Dispense Refill albuterol (2.5 MG/3ML) 0.083% nebulizer solution Take 3 mL (2.5 mg) by nebulization every 6 (six) hours if needed for wheezing 75 mL 0 albuterol HFA 90 mcg/act inhaler Inhale 2 puffs Daily as needed for wheezing aspirin 81 MG EC tablet Take 81 mg by mouth in the morning. CALCIUM CITRATE PO Take 1 tablet by mouth in the morning. cholecalciferol (Vitamin D-3) 25 MCG (1000 UT) capsule Take 1,000 Units by mouth in the morning. Fexofenadine-Pseudoephedrine (BENITA-D 24 HOUR PO) Take 1 tablet by mouth 1 (one) time each day at the same time. gabapentin (Neurontin) 100 MG capsule For severe pain, take an additional 1 tablet in the evening as needed 30 capsule 2 gabapentin (Neurontin) 300 MG capsule Take 1 capsule (300 mg) by mouth in the morning and 1 capsule (300 mg) before bedtime. 60 capsule 2 ipratropium (Atrovent) 0.06 % nasal spray Administer 2 sprays into each nostril liothyronine (Cytomel) 5 MCG tablet Take 1.5 tablets (7.5 mcg) by mouth in the morning and 1.5 tablets (7.5 mcg) in the evening. Take before meals. [employer] or [employer] brand only. 90 tablet 0 losartan (Cozaar) 50 MG tablet Take 1 tablet (50 mg) by mouth Daily 90 tablet 1 meclizine (Antivert) 25 MG tablet Take 0.5-2 [...] evening. Take before meals. 180 capsule 1 Spacer/Aero-Holding Chambers (Pro Comfort Spacer Adult) misc Use with HFA spacer. May substitute with any brand. 1 each 0 verapamil SR (Calan SR) 240 MG ER tablet Take 1 tablet (240 mg) by mouth Daily 90 tablet 1 No current facility-administered medications on file prior to visit. 1. Euthyroid sick syndrome (Primary) In prescribing an adjustment to their current medication, consideration of the following encompasses moderate decision making; the current prescriptions and supplements, the current allergies and medication intolerances, the current medical conditions, and potential drug interactions. Risks, benefits, and reason for adjusting their current medication were discussed. The patient was given a chance to ask questions today and all questions were answered. The patient is to contact us if any other questions arise or if any problems occur with the adjustment in their medication. - T3; Future - T3, free; Future - T3, reverse; Future - T4, free; Future - liothyronine (Cytomel) 5 MCG tablet; Take 2 tablet in AM and 1.5 tablet in PM on an empty stomach. AVERY; Sigma or [employer] brands only Dispense: 315 tablet; Refill: 1 - T3 - T3, free - T3, reverse - T4, free 2. Acquired central hypothyroidism This is a complex chronic problem, unstable, not to goal; managment requires moderate decision making I reviewed diet and exercise with the patient. I discussed the patient's current psychosocial and physical condition and the stress impact upon them. I reviewed the multiple unique laboratories and explained the results to the patient. The patient has been re-educated concerning the above diagnoses and that the treatment for some of these may not be considered the standard of care, including TSH suppression when utilized. The patient has been re-educated and instructed concerning medication timing, diet, exercise, and stress reduction as appropriate. I reviewed the patient's current prescriptions and discussed the possibilities of medication renewals, adjustments, new medication start, or stop medication as appropriate The patient has been instructed to follow up and bring a diet and exercise log, and the importance of follow up and compliance. The patient was given a chance to ask questions today and all questions were answered. The patient is to contact us if any other questions arise or if any problems occur. - levothyroxine (Synthroid, Levoxyl) 75 MCG tablet; Take 0.5 tablets (37.5 mcg) by mouth in the morning. Take before meals. Dispense: 45 tablet; Refill: 0 - T3; Future - T3, free; Future - T3, reverse; Future - T4, free; Future - T3 - T3, free - T3, reverse - T4, free 3. Chronic fatigue Chronic problem, unstable, complex in nature with moderate decision making. I discussed with the patient or their telephone sales representative, their fatigue issues. We discussed how this is either not improved or not adequately addressed. We discussed how this is almost always a multifactorial problem. We discussed how we can frequently improve the symptoms, but may not be able to completely cure or resolve the issue. We discussed that the patient will need to continue to make lifestyle changes including diet, sleep, exercise, and stress management as appropriate. We further discussed how we will continue to search for refinements in their current treatments or evaluation for further disease processes and then support or treat them as appropriate. The patient was given a chance to ask questions and all questions were answered. - T3; Future - T3, free; Future - T3, reverse; Future - T4, free; Future - T3 - T3, free - T3, reverse - T4, free 4. Recurrent major depressive disorder, in partial remission Chronic problem, stable, overall doing well from this aspect. - buPROPion SR (Wellbutrin SR) 100 MG 12 hr tablet; Take 1 tablet (100 mg) by mouth in the morning. Take before meals. Do not crush, chew, or split. Dispense: 90 tablet; Refill: 1 - PARoxetine (Paxil) 20 MG tablet; Take 1 tablet (20 mg) by mouth in the morning. Dispense: 90 tablet; Refill: 1 5. Alzheimer's disease with late onset (CODE) (HCC) She is still concerned about memory and having trouble specifically focusing. In prescribing a new medication consideration of [...] with the adjustment in their medication. - donepezil (Aricept) 10 MG tablet; Take 1 tablet (10 mg) by mouth at bedtime Dispense: 90 tablet; Refill: 1 6. Dermatitis - clotrimazole-betamethasone (Lotrisone) cream; Apply topically in the morning and before bedtime. Dispense: 30 g; Refill: 0 7. Sleep initiation disorder Sleeping well with the medication. Denies any specific side effects. - traZODone (Desyrel) 100 MG tablet; Take 1 tablet (100 mg) by mouth at bedtime Keep on file as refill Dispense: 30 tablet; Refill: 0 documented in this encounter [facility] 03-15-2025 History of Present illness Narrative Images from the original note were not included. Patient ID: Belkys Adames is a 84 y.o. female who presents for: Pt has a red spot on her right upper arm that Is red and flat but round. She states it feels rough and it is itchy. She denies having any pets at home. She denies being around anyone who has had ringworm since it is in somewhat of a circular pattern. Review of Systems It has not spread. It is not painful. The itch is mild to moderate. Objective Right arm outer aspect has not a proximally 2.5 cm in diameter lesion. There is somewhat raised red borders have some fine scale. There Is central clearing. 07/27/2024 9:40 AM 08/04/2024 2:26 PM 08/10/2024 10:20 AM 09/10/2024 11:41 AM 10/06/2024 2:50 PM 12/02/2024 9:38 AM 02/03/2025 9:16 AM Vitals BMI 27.27 kg/m2 27.27 kg/m2 26.82 kg/m2 26.66 kg/m2 26.66 kg/m2 27.83 kg/m2 BSA (m2) 1.6 m2 1.6 m2 1.58 m2 1.58 m2 1.58 m2 1.61 m2 Systolic 148 136 122 Diastolic 74 86 78 Heart Rate 83 SpO2 99 % Height (in) 4' 11 4' 11 4' 11 4' 11 4' 11 4' 11 Weight (lb) 135 135 132.8 132 132 137.8 Visit Report Report Report Report Report Report Report Report Allergies Allergen Reactions Memantine Other, Tinnitus and GI intolerance Very tired Milk-Related Compounds Other Reaction(s): Unknown Oxycodone-Acetaminophen Other Reaction(s): Mental Status Change makes me crazy Rosuvastatin Myalgia and feeling like she was going to . Simvastatin Other Dysesthesia described as feeling things under her skin, and myalgia Soybean-Containing Drug Products Other Reaction(s): Unknown Wheat Other Reaction(s): Unknown Current Outpatient Medications on File Prior to Visit Medication Sig Dispense Refill albuterol (2.5 MG/3ML) 0.083% nebulizer solution Take 3 mL (2.5 mg) by nebulization every 6 (six) hours if needed for wheezing 75 mL 0 albuterol HFA 90 mcg/act inhaler Inhale 2 puffs Daily as needed for wheezing aspirin 81 MG EC tablet Take 81 [...] the morning. donepezil (Aricept) 10 MG tablet Take 1 tablet (10 mg) by mouth at bedtime 30 tablet 1 Fexofenadine-Pseudoephedrine (BENITA-D 24 HOUR PO) Take 1 tablet by mouth 1 (one) time each day at the same time. gabapentin (Neurontin) 100 MG capsule For severe pain, take an additional 1 tablet in the evening as needed 30 capsule 2 gabapentin (Neurontin) 300 MG capsule Take 1 capsule (300 mg) by mouth in the morning and 1 capsule (300 mg) before bedtime. 60 capsule 2 ipratropium (Atrovent) 0.06 % nasal spray Administer 2 sprays into each nostril levothyroxine (Synthroid, Levoxyl) 50 MCG tablet Take 0.5 tablets (25 mcg) by mouth in the morning and 0.5 tablets (25 mcg) in the evening. Take before meals. 30 tablet 0 liothyronine (Cytomel) 5 MCG tablet Take 1.5 tablets (7.5 mcg) by mouth in the morning and 1.5 tablets (7.5 mcg) in the evening. Take before meals. [employer] or [employer] brand only. 90 tablet 0 losartan (Cozaar) 50 MG tablet Take 1 tablet (50 mg) by mouth Daily 90 tablet 1 meclizine (Antivert) 25 MG tablet Take 0.5-2 [...] evening. Take before meals. 180 capsule 1 PARoxetine (Paxil) 20 MG tablet Take 1 tablet (20 mg) by mouth in the morning. 90 tablet 1 Spacer/Aero-Holding Chambers (Pro Comfort Spacer Adult) misc Use with HFA spacer. May substitute with any brand. 1 each 0 traZODone (Desyrel) 100 MG tablet Take 1 tablet (100 mg) by mouth at bedtime Keep on file as refill 30 tablet 0 verapamil SR (Calan SR) 240 MG ER tablet Take 1 tablet (240 mg) by mouth Daily 90 tablet 1 [DISCONTINUED] levothyroxine (Synthroid, Levoxyl) 50 MCG tablet Take 0.5 tablets (25 mcg) by mouth in the morning and 0.5 tablets (25 mcg) in the evening. Take before meals. 30 tablet 0 [DISCONTINUED] liothyronine (Cytomel) 5 MCG tablet Take 1.5 tablets (7.5 mcg) by mouth in the morning and 1.5 tablets (7.5 mcg) in the evening. Take before meals. [employer] or sigma brand only. 90 tablet 0 No current facility-administered medications on file prior to visit. 1. Non-seasonal allergic rhinitis due to other allergic trigger Patient asked if she can continue using the Benita-D her symptoms are mild. We discussed intermittent use would be okay but I do not want understand this nonstop. She verbalized understanding. 2. Dermatitis (Primary) Send a prescription for Lotrisone. documented in this encounter [facility] 02-03-2025 History of Present illness Narrative Images from the original note were not included. Patient ID: Belkys Adames is a 84 y.o. female who presents for: Hypertension Patient is here for follow-up of elevated blood pressure. She is exercising and is adherent to a low-salt diet. Blood pressure is well controlled at home. Cardiac symptoms: lower extremity edema. Patient denies chest pain, dyspnea, irregular heart beat, and palpitations. Cardiovascular risk factors: advanced age (older than 55 for men, 65 for women), dyslipidemia, hypertension, and sedentary lifestyle. Use of agents associated with hypertension: thyroid hormones. History of target organ damage: none. Hyperlipidemia Pt who presents for follow-up of dyslipidemia. A repeat fasting lipid profile was done. The patient does not use medications that may worsen dyslipidemias (corticosteroids, progestins, anabolic steroids, diuretics, beta-blockers, amiodarone, cyclosporine, olanzapine). Exercise: daily. GERD Paitent complains of heartburn. This has been associated with belching and eructation. He/She denies abdominal bloating, difficulty swallowing, and heartburn. Symptoms have been present for several years. He/She denies dysphagia. He/She has not lost weight. He/She denies melena, hematochezia, hematemesis, and coffee ground emesis. Review of Systems Constitutional: Negative for activity change and fatigue. Respiratory: Negative for cough, shortness of breath and wheezing. Cardiovascular: Negative for chest pain, palpitations and leg swelling. Neurological: Negative for light-headedness and headaches. Objective The patient is pleasant and in no acute distress. The neck is supple and trachea is midline. No masses are appreciated. The heart is regular rate and rhythm without S3, S4. No murmur. The patient has normal respiratory pattern. The breath sounds are symmetrical without evidence of rhonchi or rales. No wheezing. The skin is warm and dry. The lower extremities have trace edema. The patient has good eye contact and speech is clear. Appropriate affect. Visit Vitals BP 122/78 Ht 4' 11 Wt 137 lb 12.8 oz BMI 27.83 kg/m OB Status Postmenopausal Smoking Status Never BSA 1.61 m Allergies Allergen Reactions Memantine Other, Tinnitus and GI intolerance Very tired Milk-Related Compounds Other Reaction(s): Unknown Oxycodone-Acetaminophen Other Reaction(s): Mental Status Change makes me crazy Simvastatin Other Dysesthesia described as feeling things under her skin, and myalgia Soybean-Containing Drug Products Other Reaction(s): Unknown Wheat Other Reaction(s): Unknown Current Outpatient Medications on File Prior to Visit Medication Sig Dispense Refill albuterol (2.5 MG/3ML) 0.083% nebulizer solution Take 3 mL (2.5 mg) by nebulization every 6 (six) hours if needed for wheezing 75 mL 0 albuterol HFA 90 mcg/act inhaler Inhale 2 puffs Daily as needed for wheezing aspirin 81 MG EC tablet Take 81 [...] the morning. donepezil (Aricept) 10 MG tablet Take 1 tablet (10 mg) by mouth at bedtime 30 tablet 1 Fexofenadine-Pseudoephedrine (BENITA-D 24 HOUR PO) Take 1 tablet by mouth 1 (one) time each day at the same time. gabapentin (Neurontin) 100 MG capsule For severe pain, take an additional 1 tablet in the evening as needed 30 capsule 2 gabapentin (Neurontin) 300 MG capsule Take 1 capsule (300 mg) by mouth in the morning and 1 capsule (300 mg) before bedtime. 60 capsule 2 ipratropium (Atrovent) 0.06 % nasal spray Administer 2 sprays into each nostril levothyroxine (Synthroid, Levoxyl) 50 MCG tablet Take 0.5 tablets (25 mcg) by mouth in the morning and 0.5 tablets (25 mcg) in the evening. Take before meals. 90 tablet 0 liothyronine (Cytomel) 5 MCG tablet Take 1.5 tablets (7.5 mcg) by mouth in the morning and 1.5 tablets (7.5 mcg) in the evening. Take before meals. [employer] or [employer] brand only. 90 tablet 0 losartan (Cozaar) 50 MG tablet Take 1 tablet (50 mg) by mouth Daily 30 tablet 0 meclizine (Antivert) 25 MG tablet [...] evening. Take before meals. 180 capsule 1 PARoxetine (Paxil) 20 MG tablet Take 1 tablet (20 mg) by mouth in the morning. 90 tablet 1 Spacer/Aero-Holding Chambers (Pro Comfort Spacer Adult) misc Use with HFA spacer. May substitute with any brand. 1 each 0 traZODone (Desyrel) 100 MG tablet Take 1 tablet (100 mg) by mouth at bedtime Keep on file as refill 30 tablet 0 verapamil SR (Calan SR) 240 MG ER tablet TAKE 1 TABLET (240 MG) BY MOUTH 1 (ONE) TIME EACH DAY AT THE SAME TIME 90 tablet 1 [DISCONTINUED] liothyronine (Cytomel) 5 MCG tablet Take 1.5 tablets (7.5 mcg) by mouth in the morning and 1.5 tablets (7.5 mcg) in the evening. Take before meals. [employer] or sigma brand only. 270 tablet 0 [DISCONTINUED] traZODone (Desyrel) 100 MG tablet Take 1 tablet (100 mg) by mouth at bedtime Keep on file as refill 90 tablet 0 No current facility-administered medications on file prior to visit. 1. Primary hypertension (CMS/HCC) Chronic problem, stable, to goal. - losartan (Cozaar) 50 MG tablet; Take 1 tablet (50 mg) by mouth Daily Dispense: 90 tablet; Refill: 1 - verapamil SR (Calan SR) 240 MG ER tablet; Take 1 tablet (240 mg) by mouth Daily Dispense: 90 tablet; Refill: 1 2. Mixed dyslipidemia (CMS/HCC) In prescribing a renewal to their current medication, consideration of the following encompasses moderate decision making; the current prescriptions and supplements, the current allergies and medication intolerances, current medical conditions, and potential drug interactions. Any changes to risks, benefits, and reason for renewing their current medication due to the above were discussed. The patient was given a chance to ask questions today and all questions were answered. The patient is to contact us if any other questions arise or if any problems occur. (Utilizing the original guidelines or the 2020 office/outpatient code guidelines for selecting the level of E/M service, In both sets of guidelines, prescription drug management appears in the moderate medical decision making (MDM) row. Neither the original guidelines nor the new guidelines state that a new prescription or change is needed in order to credit prescription drug management) - rosuvastatin (Crestor) 5 MG tablet; Take 1 tablet (5 mg) by mouth in the evening Dispense: 30 tablet; Refill: 0 3. Myalgia due to statin Chronic problem that would be exclusionary for the statin HEDIS measures, however with low-dose rosuvastatin we have able to at least get statin medication in place. 4. Gastroesophageal reflux disease without esophagitis In prescribing a renewal to their current medication, consideration of the following encompasses moderate decision making; the current prescriptions and supplements, the current allergies and medication intolerances, current medical conditions, and potential drug interactions. Any changes to risks, benefits, and reason for renewing their current medication due to the above were discussed. The patient was given a chance to ask questions today and all questions were answered. The patient is to contact us if any other questions arise or if any problems occur. (Utilizing the original 1994/1996 guidelines or the 2020 office/outpatient code guidelines for selecting the level of E/M service, In both sets of guidelines, prescription drug management appears in the moderate medical decision making (MDM) row. Neither the original guidelines nor the new guidelines state that a new prescription or change is needed in order to credit prescription drug management) - omeprazole (PriLOSEC) [address] capsule; Take 1 capsule (40 mg) by mouth in the morning and 1 capsule (40 mg) in the evening. Take before meals. Dispense: 180 capsule; Refill: 1 Chronic problem The patient meets the criteria for polypharmacy; 5 or more prescriptions or multi-morbidity defined as 5 or more diagnoses. Polypharmacy can significantly increase the risk of preventable adverse drug events and negatively impact adherence. Consideration of diverse factors such as clinician agreement, patient perspective, and de-prescribing, as appropriate can improve patient outcomes while simplifying care. This requires longitudinal monitoring as there is at least a moderate risk of morbidity and requires at least a moderate degree of evaluation and management. documented in this encounter [facility] 12-02-2024 History of Present illness Narrative Images from the original note were not included. Patient ID: Belkys Adames is a 84 y.o. female who presents for: Upper Respiratory Infection Patient complains of symptoms of a URI. Symptoms include productive cough with clear colored sputum and wheezing. Onset of symptoms was 10 days ago, and has been gradually improving since that time. Treatment to date: She saw a devoted STAINED GLASS PAINTER over the video and she prescribed her an HFA inhaler which has been helping break the cough up some . Review of Systems No GI symptomatology. On further discussion is pretty apparent she is not activating and getting all albuterol into her respiratory system properly. Objective In general the patient is pleasant [...] cervical adenopathy. No signs of respiratory distress. Patient is speaking full sentences. There are asymmetrical breath sounds We have decreased in the right upper lung field. There is also a decrease in percussion note in the right upper lung field. No rhonchi or rales are appreciated. No wheezes. The cough sounds moist and somewhat productive but she is having trouble bringing the mucus up. Skin is warm and dry Visit Vitals Ht 4' 11 Wt 132 lb BMI 26.66 kg/m OB Status Postmenopausal Smoking Status Never BSA 1.58 m Allergies Allergen Reactions Memantine Other, Tinnitus and GI intolerance Very tired Milk-Related Compounds Other Reaction(s): Unknown Oxycodone-Acetaminophen Other Reaction(s): Mental Status Change makes me crazy Simvastatin Other Dysesthesia described as feeling things under her skin, and myalgia Soybean-Containing Drug Products Other Reaction(s): Unknown Wheat Other Reaction(s): Unknown Current Outpatient Medications on File Prior to Visit Medication Sig Dispense Refill albuterol (2.5 MG/3ML) 0.083% nebulizer solution Take 3 mL (2.5 mg) by nebulization every 6 (six) hours if needed for wheezing 75 mL 0 albuterol HFA 90 mcg/act inhaler Inhale 2 puffs Daily as needed for wheezing aspirin 81 MG EC tablet Take 81 [...] the morning. donepezil (Aricept) 10 MG tablet Take 1 tablet (10 mg) by mouth at bedtime 30 tablet 1 Fexofenadine-Pseudoephedrine (BENITA-D 24 HOUR PO) Take 1 tablet by mouth 1 (one) time each day at the same time. gabapentin (Neurontin) 100 MG capsule For severe pain, take an additional 1 tablet in the evening as needed 30 capsule 2 gabapentin (Neurontin) 300 MG capsule Take 1 capsule (300 mg) by mouth in the morning and 1 capsule (300 mg) before bedtime. 60 capsule 2 ipratropium (Atrovent) 0.06 % nasal spray Administer 2 sprays into each nostril levothyroxine (Synthroid, Levoxyl) 50 MCG tablet Take 0.5 tablets (25 mcg) by mouth in the morning and 0.5 tablets (25 mcg) in the evening. Take before meals. 30 tablet 0 liothyronine (Cytomel) 5 MCG tablet Take 1.5 tablets (7.5 mcg) by mouth in the morning and 1.5 tablets (7.5 mcg) in the evening. Take before meals. [employer] or [employer] brand only. 90 tablet 1 losartan (Cozaar) 50 MG tablet Take 1 tablet (50 mg) by mouth Daily 30 tablet 0 meclizine (Antivert) 25 MG tablet [...] evening. Take before meals. 180 capsule 1 PARoxetine (Paxil) 20 MG tablet Take 1 tablet (20 mg) by mouth in the morning. 90 tablet 1 sucralfate (Carafate) 1 g tablet Take 1 g by mouth See administration instructions. Dissolve 1 tablet in 2 oz of water three times daily before meals and again before bedtime as needed traZODone (Desyrel) 100 MG tablet Take 1 tablet (100 mg) by mouth at bedtime Keep on file as refill 90 tablet 0 verapamil SR (Calan SR) 240 MG ER tablet Take 1 tablet (240 mg) by mouth 1 (one) time each day at the same time 90 tablet 1 No current facility-administered medications on file prior to visit. 1. Walking pneumonia (Primary) I discussed with her that I do think she probably started with a viral infection but has some sort of secondary infection now. We discussed the possibility of atypical bacteria which I translated into the walking pneumonia. She notes a relative who is a physician investment sales assistant had mentioned walking pneumonia. I also actually got my inhaler and spacer and showed her how to use this. In prescribing a new medication consideration of [...] with the adjustment in their medication. - levoFLOXacin (Levaquin) 750 MG tablet; Take 1 tablet (750 mg) by mouth Daily for 7 days Dispense: 7 tablet; Refill: 0 - Spacer/Aero-Holding Chambers (Pro Comfort Spacer Adult) misc; Use with HFA spacer. May substitute with any brand. Dispense: 1 each; Refill: 0 2. 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 She notes she occasionally thinks she sees somebody at the far end of the ho only briefly. She also thinks that occasionally the curtains are moving when they are not. He denies any other hallucinations. We discussed that I do not think we need to actually increase her dementia medicines at this time. We could begin treatment for the hallucinations but they are intermittent and rather mild. After discussion of these options she would prefer to hold off and I think that is very reasonable. We discussed if they sort of become constant or scary for her then we should institute treatment. documented in this encounter [facility] 10-06-2024 History of Present illness Narrative Images from the original note were not included. Patient ID: Belkys Adames is a 83 y.o. female who presents for: Chronic Pain: Pt is here for follow-up of chronic pain related to back and legs. Her/His pain is waxing and waning but worse overall with the restricted and limited use of walking. Pain is usually 6-7 /10, described as aching, sharp, throbbing, and tingling and occurs continuously. The average duration of each episode is 3-4 days. There are no neurologic red flag symptoms The patient specifically noted an improvement with the tramadol. This made her more comfortable and easy to function around the house in her activities of daily living. She specifically denies side effects. Objective Her exam is essentially the same as noted in her previous visit. Visit Vitals Ht 4' 11 Wt 132 lb BMI 26.66 kg/m OB Status Postmenopausal Smoking Status Never BSA 1.58 m PDMP reviewed, Homero Moses MD on 10/06/2024 3:22 PM Appears as expected. COMM reviewed Office Visit on 10/06/2024 Component Date Value Ref Range Status AMPHETAMINES 10/06/2024 Negative Final BARBITURATES 10/06/2024 Negative Final BUPRENORPHINE 10/06/2024 Negative Final BENZODIAZEPINES 10/06/2024 Negative Final COCAINE METABOLITE 10/06/2024 Negative Final ECSTASY 10/06/2024 Negative Final METHADONE 10/06/2024 Negative Final OPIATES 10/06/2024 Negative Final OXYCODONE 10/06/2024 Negative Final PHENCYCLIDINE 10/06/2024 Negative Final TRICYCLICS 10/06/2024 Negative Final THC 10/06/2024 Negative Final MORPHINE 10/06/2024 Negative Final Allergies Allergen Reactions Memantine Other, Tinnitus and GI intolerance Very tired Milk-Related Compounds Other Reaction(s): Unknown Oxycodone-Acetaminophen Other Reaction(s): Mental Status Change makes me crazy Simvastatin Other Dysesthesia described as feeling things under her skin, and myalgia Soybean-Containing Drug Products Other Reaction(s): Unknown Wheat [...] the morning. donepezil (Aricept) 10 MG tablet Take 1 tablet (10 mg) by mouth at bedtime 30 tablet 1 Fexofenadine-Pseudoephedrine (BENITA-D 24 HOUR PO) Take 1 tablet by mouth 1 (one) time each day at the same time. gabapentin (Neurontin) 100 MG capsule For severe pain, take an additional 1 tablet in the evening as needed gabapentin (Neurontin) 300 MG capsule Take 1 capsule (300 mg) by mouth in the morning and 1 capsule (300 mg) before bedtime. 180 capsule 1 levothyroxine (Synthroid, Levoxyl) 50 MCG tablet Take 0.5 tablets (25 mcg) by mouth in the morning and 0.5 tablets (25 mcg) in the evening. Take before meals. 30 tablet 0 liothyronine (Cytomel) 5 MCG tablet Take 1.5 tablets (7.5 mcg) by mouth in the morning and 1.5 tablets (7.5 mcg) in the evening. Take before meals. [employer] or sigma brand only. 90 tablet 1 meclizine (Antivert) 25 MG tablet Take 0.5-2 tablets as needed for vertigo 60 tablet 0 multivitamin (Theragran) tablet Take 2 tablets by mouth in the morning. Nebulizers (Compressor/Nebulizer) misc Use 4 times per day and PRN SOB/wheezing 1 each 0 omeprazole (PriLOSEC) [address] capsule Take 1 capsule (40 mg) by mouth in the morning and 1 capsule (40 mg) in the evening. Take before meals. 180 capsule 1 sucralfate (Carafate) 1 g tablet Take 1 g by mouth See administration instructions. Dissolve 1 tablet in 2 oz of water three times daily before meals and again before bedtime as needed traZODone (Desyrel) 100 MG tablet Take 1 tablet (100 mg) by mouth at bedtime 90 tablet 0 verapamil SR (Calan SR) 240 MG ER tablet Take 1 tablet (240 mg) by mouth 1 (one) time each day at the same time 90 tablet 1 losartan (Cozaar) 50 MG tablet Take 1 tablet (50 mg) by mouth Daily 30 tablet 0 memantine (Namenda) 5 MG tablet Take 1 tablet (5 mg) by mouth in the morning and 1 tablet (5 mg) before bedtime. 180 tablet 1 PARoxetine (Paxil) 20 MG tablet Take 1 tablet (20 mg) by mouth in the morning. 90 tablet 1 No current facility-administered medications on file prior to visit. 1. Chronic pain syndrome (Primary) Chronic problem, stable, multifactorial, with complex decision making. The patient presents for re-evaluation of their chronic pain syndrome and treatment recommendations. They note, that the pain is still present but under reasonable control with home therapies and medications. They state that they are taking their medications compliantly and perceiving a benefit specifically from these medications. They deny any significant side effects from the medications themselves. The treatment program enables them to continue their activities of daily living. I specifically note the patient has one or more high risk medications that is a chronic problem that specifically increases complexity of decision making and complicates all prescribing including prescription renewal consistent with a moderate or complex degree of decision making. A high-risk medicine is one that may cause serious health problems if not taken the correct way, or taken with another drug or food item that it may interact with. If the high-risk medication includes a controlled or reportable substance, The OARRS and NARX scores were reviewed and seem to be consistent with their prescribing pattern. The Current Opioid Misuse Measure (COMM) is reviewed and there is no evidence of aberrant behavior or abuse. Treatment regimens are increasingly complex and potentially harmful, and people with high risk medications need regular review and prescribing optimization. - traMADol (Ultram) 50 MG tablet; Take 1 tablet (50 mg) by mouth every 8 (eight) hours if needed for moderate pain Dispense: 90 tablet; Refill: 0 - Rapid drug screen, urine 2. Lumbosacral radiculopathy due to degenerative joint disease of spine Chronic problem that is a component chronic pain syndrome. The gabapentin seems to be helping with the radicular pain but only slightly with the back pain. She denies any specific problems related to the gabapentin. In prescribing a renewal to their current medication, consideration of the following encompasses moderate decision making; the current prescriptions and supplements, the current allergies and medication intolerances, current medical conditions, and potential drug interactions. Any changes to risks, benefits, and reason for renewing their current medication due to the above were discussed. The patient was given a chance to ask questions today and all questions were answered. The patient is to contact us if any other questions arise or if any problems occur. (Utilizing the original guidelines or the 2020 office/outpatient code guidelines for selecting the level of E/M service, In both sets of guidelines, prescription drug management appears in the moderate medical decision making (MDM) row. Neither the original guidelines nor the new guidelines state that a new prescription or change is needed in order to credit prescription drug management) - gabapentin (Neurontin) 300 MG capsule; Take 1 capsule (300 mg) by mouth in the morning and 1 capsule (300 mg) before bedtime. Dispense: 60 capsule; Refill: 2 - gabapentin (Neurontin) 100 MG capsule; For severe pain, take an additional 1 tablet in the evening as needed Dispense: 30 capsule; Refill: 2 3. Closed wedge compression fracture of L1 vertebra, sequela Chronic problem that is a component of the chronic pain syndrome. We previously discussed possible referral to spine surgery for possible intervention and she prefers not to do this. 4. Controlled substance agreement signed See the scanned copy - traMADol (Ultram) 50 MG tablet; Take 1 tablet (50 mg) by mouth every 8 (eight) hours if needed for moderate pain Dispense: 90 tablet; Refill: 0 - Rapid drug screen, urine 5. Medication monitoring encounter No unexpected results - traMADol (Ultram) 50 MG tablet; Take 1 tablet (50 mg) by mouth every 8 (eight) hours if needed for moderate pain Dispense: 90 tablet; Refill: 0 - Rapid drug screen, urine 6. Sleep initiation disorder Chronic problem that is stable. She is taking her trazodone which also cross treats chronic pain. 7. Polypharmacy Chronic problem The patient meets the criteria for polypharmacy; 5 or more prescriptions or multi-morbidity defined as 5 or more diagnoses. Polypharmacy can significantly increase the risk of preventable adverse drug events and negatively impact adherence. Consideration of diverse factors such as clinician agreement, patient perspective, and de-prescribing, as appropriate can improve patient outcomes while simplifying care. This requires longitudinal monitoring as there is at least a moderate risk of morbidity and requires at least a moderate degree of evaluation and management. 8. Overweight Encouraged stretching and gentle chair exercises and I demonstrated a few of these. documented in this encounter [facility] 09-10-2024 History of Present illness Narrative Images from the original note were not included. Patient ID: Belkys Adames is a 83 y.o. female who presents for: Thyroid: Pt here today to review his/hers thyroid labs and any medication changes needed. Fatigue: Present, worsened Weight Gain: Absent Inability to lose weight: absent Hair Changes: Absent He/She is following the thyroid diet: Good He/She are taking medications as directed: Good He/She are exercising at least 3 days out of the week for 30 minutes or more: Good Anxiety Patient is here for evaluation of anxiety. He/She has the following anxiety symptoms: fatigue. Onset of symptoms was approximately several years ago. Symptoms have been stable since that time. He/She denies current suicidal and homicidal ideation. Family history significant for no psychiatric illness.Possible organic causes contributing are: none. Previous treatment includes medication Paxil. He/She complains of the following medication side effects: none. Having a difficult time doing things. She gave the example of taking three times to figure out how to unbuckle her seat belt. She states she forgot her daughter's husbands name whom she has been to for 20 years. She forgot her mom and dads birthdays when they asked at her mammogram. Review of Systems Constitutional: Positive for fatigue. Negative for appetite change. HENT: Positive for trouble swallowing. Negative for voice change. Cardiovascular: Negative for palpitations. Musculoskeletal: Negative for arthralgias and myalgias. Psychiatric/Behavioral: Negative for sleep disturbance. The patient is nervous/anxious. Endocrine: Positive for cold intolerance. Negative for heat intolerance. No visits with results within 1 Month(s) from this visit. Latest known visit with results is: Office Visit on 03/17/2024 Component Date Value Ref Range Status T3, TOTAL 09/03/2024 100 76 - 181 ng/dL Final T3 REVERSE, LC/MS/MS 09/03/2024 10 8 - 25 ng/dL Final Comment: This test was developed and its analytical performance characteristics have been determined by [facility] [place], [place]. It has not been cleared or approved by the U.S. Food and Drug Administration. This assay has been validated pursuant to the CLIA regulations and is used for clinical purposes. T3, FREE 09/03/2024 3.2 2.3 - 4.2 pg/mL Final T4, FREE 09/03/2024 0.8 0.8 - 1.8 ng/dL Final TSH 09/03/2024 0.21 (L) 0.40 - 4.50 mIU/L Final Calculated THY Ratio: 10 Objective The patient is pleasant and in no acute distress The patient does not appear to have a gross neurologic deficit. The patient has good eye contact and clear speech She does have sitting straight leg raising pain on the right. She has hypertonicity bilateral paraspinal lumbar muscles with some mild discomfort on the right. Decreased range of motion in all directions. She is using a cane but otherwise a fairly normal gait today Visit Vitals Ht 4' 11 Wt 132 lb 12.8 oz BMI 26.82 kg/m OB Status Postmenopausal Smoking Status Never BSA 1.58 m Allergies Allergen Reactions Memantine Other, Tinnitus and GI intolerance Very tired Milk-Related Compounds Other Reaction(s): Unknown Oxycodone-Acetaminophen Other Reaction(s): Mental Status Change makes me crazy Simvastatin Other Dysesthesia described as feeling things under her skin, and myalgia Soybean-Containing Drug Products Other Reaction(s): Unknown Wheat [...] the morning. donepezil (Aricept) 10 MG tablet Take 1 tablet (10 mg) by mouth at bedtime 30 tablet 1 Fexofenadine-Pseudoephedrine (BENITA-D 24 HOUR PO) Take 1 tablet by mouth 1 (one) time each day at the same time. gabapentin (Neurontin) 100 MG capsule For severe pain, take an additional 1 tablet in the evening as needed gabapentin (Neurontin) 300 MG capsule Take 1 capsule (300 mg) by mouth in the morning and 1 capsule (300 mg) before bedtime. 180 capsule 1 losartan (Cozaar) 50 MG tablet Take 1 tablet (50 mg) by mouth Daily 30 tablet 0 meclizine (Antivert) 25 MG tablet [...] evening. Take before meals. 180 capsule 1 PARoxetine (Paxil) 20 MG tablet Take 1 tablet (20 mg) by mouth in the morning. 90 tablet 1 sucralfate (Carafate) 1 g tablet Take 1 g by mouth See administration instructions. Dissolve 1 tablet in 2 oz of water three times daily before meals and again before bedtime as needed traZODone (Desyrel) 100 MG tablet Take 1 tablet (100 mg) by mouth at bedtime 90 tablet 0 verapamil SR (Calan SR) 240 MG ER tablet Take 1 tablet (240 mg) by mouth 1 (one) time each day at the same time 90 tablet 1 [DISCONTINUED] levothyroxine (Synthroid, Levoxyl) 50 MCG tablet Take 0.5 tablets (25 mcg) by mouth in the morning and 0.5 tablets (25 mcg) in the evening. Take before meals. 30 tablet 0 [DISCONTINUED] liothyronine (Cytomel) 5 MCG tablet Take 1.5 tablets (7.5 mcg) by mouth in the morning and 1.5 tablets (7.5 mcg) in the evening. Take before meals. Greenstone or sigma brand only. 90 tablet 0 [DISCONTINUED] predniSONE (Deltasone) 10 MG tablet Every 2 day tapering dose; 5,5,4,4,3,3,2,2,1,1,0.5,0.5 31 tablet 0 No current facility-administered medications on file prior to visit. 1. Acquired central hypothyroidism (CMS/HCC) (Primary) This is a complex chronic problem, stable, to goal; management requires moderate decision making I reviewed diet and exercise with the patient. I discussed the patient's current psychosocial and physical condition and the stress impact upon them. I reviewed the multiple unique laboratories and explained the results to the patient. The patient has been re-educated concerning the above diagnoses and that the treatment for some of these may not be considered the standard of care, including TSH suppression when utilized. The patient has been re-educated and instructed concerning medication timing, diet, exercise, and stress reduction as appropriate. I reviewed the patient's current prescriptions and discussed the possibilities of medication renewals, adjustments, new medication start, or stop medication as appropriate. The patient has been instructed to follow up and bring a diet and exercise log, obtain the unique laboratory tests ordered, and the importance of follow up and compliance. The patient was given a chance to ask questions today and all questions were answered. The patient is to contact us if any other questions arise or if any problems occur. - levothyroxine (Synthroid, Levoxyl) 50 MCG tablet; Take 0.5 tablets (25 mcg) by mouth in the morning and 0.5 tablets (25 mcg) in the evening. Take before meals. Dispense: 30 tablet; Refill: 0 - T4, free; Future - TSH; Future - T4, free - TSH 2. Euthyroid sick syndrome In prescribing a renewal to their current medication, consideration of the following encompasses moderate decision making; the current prescriptions and supplements, the current allergies and medication intolerances, current medical conditions, and potential drug interactions. Any changes to risks, benefits, and reason for renewing their current medication due to the above were discussed. The patient was given a chance to ask questions today and all questions were answered. The patient is to contact us if any other questions arise or if any problems occur. (Utilizing the original guidelines or the 2020 office/outpatient code guidelines for selecting the level of E/M service, In both sets of guidelines, prescription drug management appears in the moderate medical decision making (MDM) row. Neither the original guidelines nor the new guidelines state that a new prescription or change is needed in order to credit prescription drug management) - liothyronine (Cytomel) 5 MCG tablet; Take 1.5 tablets (7.5 mcg) by mouth in the morning and 1.5 tablets (7.5 mcg) in the evening. Take before meals. Greenstone or sigma brand only. Dispense: 90 tablet; Refill: 1 - T3; Future - T3, reverse; Future - T3, free; Future - T3 - T3, reverse - T3, free 3. Chronic fatigue Chronic problem, stable, complex in nature with moderate decision making. I discussed with the patient and/or their telephone sales representative, their fatigue issues. We discussed how this is improved significantly. We discussed that the patient will almost certainly need to continue to make lifestyle changes including diet, sleep, exercise, and stress management as appropriate. We discussed how this is almost always a multifactorial problem. We further discussed how we will continue to search for refinements in their current treatments or evaluation for further disease processes and then support or treat them as appropriate. We discussed how we can frequently improve the symptoms, but may not be able to completely cure or resolve the issue. The patient was given a chance to ask questions and all questions were answered. - T3; Future - T3, reverse; Future - T3, free; Future - T4, free; Future - TSH; Future - T3 - T3, reverse - T3, free - T4, free - TSH 4. 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 Upon review I am concerned that her polypharmacy maybe affecting her memory. I discussed this openly with her. The patient meets the criteria for polypharmacy; 5 or more prescriptions or multi-morbidity defined as 5 or more diagnoses. Polypharmacy can significantly increase the risk of preventable adverse drug events and negatively impact adherence. Consideration of diverse factors such as clinician agreement, patient perspective, and de-prescribing, as appropriate can improve patient outcomes while simplifying care. This requires longitudinal monitoring as there is at least a moderate risk of morbidity and requires at least a moderate degree of evaluation and management. 5. Chronic pain syndrome Chronic problem, stable, multifactorial, with complex decision making. The patient presents for re-evaluation of their chronic pain syndrome and treatment recommendations. They note, that the pain is present And not under reasonable control with physical therapy,home therapies, and medications. They state that they are taking their medications compliantly and she is not sure if she is receiving a benefit specifically from these medications. They deny any significant side effects from the medications themselves. I am concerned that this could be affecting her memory. We have mutually agreed that for a couple of days she is going to try off of the gabapentin. She is going to call the office back on Saturday with an update. We are specifically hoping to realize if this is negatively impacting her memory. We did discuss the possibility of tramadol as a replacement, but will re-evaluate that next week. 6. Closed wedge compression fracture of L1 vertebra, initial encounter (HCC) ([facility]) Based on August 04 x-ray. Undetermined acute versus chronic. On palpation she does not have pain over the specific area. We will continue observation for now. 7. Lumbosacral radiculopathy due to degenerative joint disease of spine As the above plan 8. Osteoarthritis of spine with radiculopathy, lumbar region As the above plan 9. Atherosclerosis of aorta ([facility]) I do not think this is a component of her pain. She is not describing claudication type symptoms. The skin on her lower extremities are equal and warm bilaterally with adequate capillary refill. It is noted that this was a very prolonged visit greater than would normally perform in 1 visit. We have a cancellation and she has really been bothered by the symptoms so I work this in. I spent greater than 45 minutes today. documented in this encounter [facility] 08-20-2024 Telephone encounter Note I called her and reviewed with her. She has only used 400 mg in the evening 1 night when it was really bad. Her pain does wax and wane. Her was also in on the call. We have mutually agreed to 300 mg twice a day regularly and she has a proximally 18 of the 100 mg tablets left. She will keep those and she will use 1 in the evening additionally on an as-needed basis for severe pain Prescription sent [facility] 08-20-2024 Miscellaneous Notes I called her and reviewed with her. She has only used 400 mg in the evening 1 night when it was really bad. Her pain does wax and wane. Her was also in on the call. We have mutually agreed to 300 mg twice a day regularly and she has a proximally 18 of the 100 mg tablets left. She will keep those and she will use 1 in the evening additionally on an as-needed basis for severe pain Prescription sent Belkys called and stated that she is almost out of gabapentin and wanted to know if would call it in for her. I called her back and found out she is taking 3 in AM and 3-4 depending on her pain at Bedtime. documented in this encounter [facility] 08-20-2024 Telephone encounter Note Belkys called and stated that she is almost out of gabapentin and wanted to know if would call it in for her. I called her back and found out she is taking 3 in AM and 3-4 depending on her pain at Bedtime. [facility] 08-18-2024 Note Patient Education Custom Cystoscopy ??? Voiding after the procedure: there may be some pain, burning, urgency, frequency and blood tinged urine following the procedure. These symptoms usually resolve within 2-5 days. Drink the amount of fluid it takes to keep the urine pink to yellow or clear in color. Drinking enough water and fluids will help to ease any discomfort after your procedure. ??? If you are having problems that seem out of the ordinary, please call. ??? If unable to contact your physician and you feel it is an emergency, go to the nearest emergency room or call 911 ??? Diet ??? you may resume your normal diet. ??? Activity ??? you may resume your normal activities ??? Call if you have a fever over 100 degrees. 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 Did not pain until next morning. Treatment has included prednisone, Tylenol, gabapenton. Rollator. Walked without device prior. Location of Symptoms: R lateral hip, right lower lateral leg. Pain level: 8/10 What increases symptoms: sit to stand from low surface. Driving. Walking. What decreases symptoms: pain meds, can lie on sides with pillow between knees Pain radiates: R lateral thigh, lateral leg Timing of pain: constant Numbness/tingling: yes Imagin% anterior wedge compression fracture of L1, age indeterminate. Mild dextrocurvature centered at L3. Mild spondlyosis. Moderate facet OA. Moderate DDD. Objective Posture / Appearance: R iliac crest is high in sit and stand Lumbar AROM: flexion: decreased 25% with pain extension: decreased 25% no pain L side bend: WFL R side bend: decreased 50% with pain Muscle Strength: R LE 5/5 except right ant tib and extensor digitorum: 4/5 L LE: 5/5 all groups Palpation: point tender L1, more so L3-5, asymmetries at pelvis with superior and posterior pubic symphysis Joint Play: hypomobile right L5 and SI Muscle length: WFL Special Tests: Positive SLR test on right. 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 Reports of no back pain today except when getting up off couch. Compliant with HEP and pleased after first PT session. INTERVENTIONS: X 15 minutes of manual therapy: METs, grade 1,2 joint mobilization L4,5 for pain relief, soft tissue mobes, neural mobes X 15 minutes of therapeutic exercises strength, flexibility, pain relief X10 minutes: therapeutic activity: Reviewed transfer techniques, body mechanics, importance of posture X () minutes modalities: ice, heat, e-stim as appropriate PT Assessment: Pt. Has participated in 1 PT session with start of POC on 08/12 for right sciatica. Added more ther ex to help improve LE strength today and pt. Tolerated well. Therapy Diagnosis: R sciatica s/p fall Functional Limitations: Back Index: 30/50 points, 60% impairment Half-Way Goals: in 6 weeks Decrease pain 50% in 2-3 weeks Centralize symptoms to low back only Home program in place Walk without assistive device x 3 weeks 0-2/10 pain with pt able to manage indep Rehab Potential: Good Plan: PT 2x/week (aware of co-pay) I hereby deem this POC medically necessary. Please sign below and fax back to the number below. Physician Signature: Date: documented in this encounter [facility] 08-10-2024 History of Present illness Narrative Images from the original note were not included. Patient ID: Belkys Adames is a 83 y.o. female who presents for: Hypertension Patient is here for follow-up of elevated blood pressure. She is not exercising and is adherent to a low-salt diet. Blood pressure is not well controlled at home. Cardiac symptoms: none. Patient denies chest pain, dyspnea, irregular heart beat, lower extremity edema, and palpitations. Cardiovascular risk factors: advanced age (older than 55 for men, 65 for women), dyslipidemia, and hypertension. Use of agents associated with hypertension: thyroid hormones. History of target organ damage: none. Hyperlipidemia Pt who presents for follow-up of dyslipidemia. A repeat fasting lipid profile was not done. The patient does not use medications that may worsen dyslipidemias (corticosteroids, progestins, anabolic steroids, diuretics, beta-blockers, amiodarone, cyclosporine, olanzapine). Exercise: rarely. GERD Paitent complains of heartburn. This has been associated with no other symptoms. He/She denies abdominal bloating, belching and eructation, difficulty swallowing, and dysphagia. Symptoms have been present for several years . He/She denies dysphagia. He/She has not lost weight. He/She denies melena, hematochezia, hematemesis, and coffee ground emesis. Sleep The patient also notes that she has been having trouble getting asleep for some time now. Her had a rather old prescription, I checked in his not even in our medical history for him, and she used 1 and then 1 that was not enough she uses 2 and she sleeps well. She thought it was trazodone but she did not know how strong it was. Review of Systems Constitutional: Negative for activity change and fatigue. Respiratory: Negative for cough, shortness of breath and wheezing. Cardiovascular: Negative for chest pain, palpitations and leg swelling. Neurological: Negative for light-headedness and headaches. Objective The patient is pleasant and in no acute distress. The neck is supple and trachea is midline. No masses are appreciated. The heart is regular rate and rhythm without S3, S4. No murmur. The patient has normal respiratory pattern. The breath sounds are symmetrical without evidence of rhonchi or rales. No wheezing. The skin is warm and dry. The lower extremities have trace edema. The patient has good eye contact and speech is clear. Appropriate affect. Visit Vitals BP 136/86 Pulse 83 SpO2 99% OB Status Postmenopausal Smoking Status Never Allergies Allergen Reactions Memantine Other, Tinnitus and GI intolerance Very tired Milk-Related Compounds Other Reaction(s): Unknown Oxycodone-Acetaminophen Other Reaction(s): Mental Status Change makes me crazy Simvastatin Other Dysesthesia described as feeling things under her skin, and myalgia Soybean-Containing Drug Products Other Reaction(s): Unknown Wheat [...] the morning. donepezil (Aricept) 10 MG tablet Take 1 tablet (10 mg) by mouth at bedtime 30 tablet 1 Fexofenadine-Pseudoephedrine (BENITA-D 24 HOUR PO) Take 1 tablet by mouth 1 (one) time each day at the same time. gabapentin (Neurontin) 100 MG capsule Titrate from 1 to 4 capsules three times daily as needed for pain 100 capsule 0 levothyroxine (Synthroid, Levoxyl) 50 MCG tablet Take 0.5 tablets (25 mcg) by mouth in the morning and 0.5 tablets (25 mcg) in the evening. Take before meals. 90 tablet 0 liothyronine (Cytomel) 5 MCG tablet Take 1.5 tablets (7.5 mcg) by mouth in the morning and 1.5 tablets (7.5 mcg) in the evening. Take before meals. [employer]ymbols or [employer] brand only. 270 tablet 0 losartan (Cozaar) 50 MG tablet Take 1 tablet (50 mg) by mouth Daily 30 tablet 0 meclizine (Antivert) 25 MG tablet Take 0.5-2 tablets as needed for vertigo 60 tablet 0 memantine (Namenda) 5 MG tablet Take 1 tablet (5 mg) by mouth in the morning and 1 tablet (5 mg) before bedtime. 180 tablet 1 multivitamin (Theragran) tablet Take 2 tablets by mouth in the morning. nabumetone (Relafen) 750 MG tablet Take 1 tablet (750 mg) by mouth in the morning and 1 tablet (750 mg) before bedtime. 60 tablet 0 Nebulizers (Compressor/Nebulizer) misc Use 4 times per day and PRN SOB/wheezing 1 each 0 omeprazole (PriLOSEC) [address] capsule Take 1 capsule (40 mg) by mouth in the morning and 1 capsule (40 mg) in the evening. Take before meals. 180 capsule 1 PARoxetine (Paxil) 20 MG tablet Take 1 tablet (20 mg) by mouth in the morning. 90 tablet 1 predniSONE (Deltasone) 10 MG tablet Every 2 day tapering dose; 5,5,4,4,3,3,2,2,1,1,0.5,0.5 31 tablet 0 sucralfate (Carafate) 1 g tablet Take 1 g by mouth See administration instructions. Dissolve 1 tablet in 2 oz of water three times daily before meals and again before bedtime as needed verapamil SR (Calan SR) 240 MG ER tablet Take 1 tablet (240 mg) by mouth 1 (one) time each day at the same time 90 tablet 1 No current facility-administered medications on file prior to visit. 1. Primary hypertension (CMS/HCC) (Primary) Chronic problem, stable, to goal - losartan (Cozaar) 50 MG tablet; Take 1 tablet (50 mg) by mouth Daily Dispense: 30 tablet; Refill: 0 - verapamil SR (Calan SR) 240 MG ER tablet; Take 1 tablet (240 mg) by mouth 1 (one) time each day at the same time Dispense: 90 tablet; Refill: 1 2. Atherosclerosis of [place] coronary artery of [place] heart without angina pectoris (CMS/HCC) Chronic problem, currently asymptomatic. There is no evidence of angina or anginal equivalents. 3. Mixed dyslipidemia (CMS/HCC) Chronic problem, monitoring by lifestyle management. 4. Myalgia due to statin Exclusionary diagnosis for the HEDIS measures 5. Gastroesophageal reflux disease without esophagitis Chronic problem, stable, virtually asymptomatic with her medication. In prescribing a renewal to their current medication, consideration of the following encompasses moderate decision making; the current prescriptions and supplements, the current allergies and medication intolerances, current medical conditions, and potential drug interactions. Any changes to risks, benefits, and reason for renewing their current medication due to the above were discussed. The patient was given a chance to ask questions today and all questions were answered. The patient is to contact us if any other questions arise or if any problems occur. (Utilizing the original 1994/1996 guidelines or the 2020 office/outpatient code guidelines for selecting the level of E/M service, In both sets of guidelines, prescription drug management appears in the moderate medical decision making (MDM) row. Neither the original guidelines nor the new guidelines state that a new prescription or change is needed in order to credit prescription drug management) - omeprazole (PriLOSEC) [address] capsule; Take 1 capsule (40 mg) by mouth in the morning and 1 capsule (40 mg) in the evening. Take before meals. Dispense: 180 capsule; Refill: 1 6. Sleep initiation disorder Chronic problem that is improved with using her 's medications. We did talk about this in the importance of not using someone else's medications. We did have him go home and call us back with the dosing. She has already been taking this dose for almost a month and sleeps well with the and feels rested in the morning. No adverse effects. - traZODone (Desyrel) 100 MG tablet; Take 1 tablet (100 mg) by mouth at bedtime Dispense: 90 tablet; Refill: 0 documented in this encounter [facility] 08-05-2024 Telephone encounter Note $20.00 PT Copay [facility] 08-05-2024 Miscellaneous Notes $20.00 PT Copay documented in this encounter [facility] 08-04-2024 History of Present illness Narrative Images from the original note were not included. Patient ID: Belkys Adames is a 83 y.o. female who presents for: Pt called and reported that she is still having pain from her 07/20 fall down the right side of her back, hip and legs. has already XR it with no evidence of fx. She states she is taking extra strength tylenol which is not touching the pain. She is here to discuss better pain management with . On further discussion with her today it does seem there 2 separate pains. One appears to be a radicular pain in a dermatome pattern that is her biggest problem. The other appears to be some musculoskeletal pain between the knee and the hip. Review of Systems Constitutional: Negative for chills and fever. Respiratory: Negative for cough, shortness of breath and wheezing. Cardiovascular: Negative for chest pain and palpitations. Gastrointestinal: Negative for abdominal pain. Genitourinary: Negative for frequency and urgency. No loss of bowel or bladder control. Objective The patient is pleasant and in no acute distress , but does appear uncomfortable. The patient has good eye contact and clear speech , her affect is more constricted than usual. She has some trouble arising in sitting into the chair. Her gait is somewhat wide-based and unsteady. She does not have specific pain over the greater trochanter on the right. Little bit of pain back around through the piriformis region. Not the true sciatic notch. SI joint on the right is mildly tender and there is some hypertonicity of the lumbar paraspinal muscles. She is truly skin sensitive to touch along the L5 and S1 dermatomes. The knee is mildly and diffusely tender without specific abnormality. Straight leg raising on the right aggravates her leg pain and causes an increase in her low back pain, On the ipsilateral portion. Visit Vitals Ht 4' 11 Wt 135 lb BMI 27.27 kg/m OB Status Postmenopausal Smoking Status Never BSA 1.6 m Allergies Allergen Reactions Memantine Other, Tinnitus and GI intolerance Very tired Milk-Related Compounds Other Reaction(s): Unknown Oxycodone-Acetaminophen Other Reaction(s): Mental Status Change makes me crazy Simvastatin Other Dysesthesia described as feeling things under her skin, and myalgia Soybean-Containing Drug Products Other Reaction(s): Unknown Wheat [...] the morning. donepezil (Aricept) 10 MG tablet Take 1 tablet (10 mg) by mouth at bedtime 30 tablet 1 Fexofenadine-Pseudoephedrine (BENITA-D 24 HOUR PO) [...] mcg) in the evening. Take before meals. [employer] or [employer] brand only. 270 tablet 0 losartan (Cozaar) 50 MG tablet Take 1 tablet (50 mg) by mouth Daily 30 tablet 0 meclizine (Antivert) 25 MG tablet Take 0.5-2 tablets as needed for vertigo 60 tablet 0 memantine (Namenda) 5 MG tablet Take 1 tablet (5 mg) by mouth in the morning and 1 tablet (5 mg) before bedtime. 180 tablet 1 multivitamin (Theragran) tablet Take 2 tablets by mouth in the morning. nabumetone (Relafen) 750 MG tablet Take 1 tablet (750 mg) by mouth in the morning and 1 tablet (750 mg) before bedtime. 60 tablet 0 Nebulizers (Compressor/Nebulizer) misc Use 4 times per day and PRN SOB/wheezing 1 each 0 omeprazole (PriLOSEC) [address] capsule Take 1 capsule (40 mg) by mouth in the morning and 1 capsule (40 mg) in the evening. Take before meals. 180 capsule 1 PARoxetine (Paxil) 20 MG tablet Take 1 tablet (20 mg) by mouth in the morning. 90 tablet 1 sucralfate (Carafate) 1 g tablet Take 1 g by mouth See administration instructions. Dissolve 1 tablet in 2 oz of water three times daily before meals and again before bedtime as needed verapamil SR (Calan SR) 240 MG ER tablet Take 1 tablet (240 mg) by mouth 1 (one) time each day at the same time 90 tablet 1 [DISCONTINUED] donepezil (Aricept) 10 MG tablet TAKE 1 TABLET BY MOUTH EVERY DAY AT BEDTIME FOR 30 DAYS 90 tablet 1 [DISCONTINUED] simvastatin (Zocor) 10 MG tablet Take 1 tablet (10 mg) by mouth at bedtime 90 tablet 1 No current facility-administered medications on file prior to visit. 1. Fall, sequela Acute problem with recheck. Patient is not improving in certain symptomatology is worsening. See below. - XR lumbar spine complete 4+ views; Future - Ambulatory referral to Physical Therapy; Future 2. Lumbosacral radiculopathy at L5 It does appear that she has 2 distinct radiculopathies. I did review in specific detail with her and her how to taper the prednisone and how to titrate the gabapentin. In prescribing a new medication consideration of [...] with the adjustment in their medication. - predniSONE (Deltasone) 10 MG tablet; Every 2 day tapering dose; 5,5,4,4,3,3,2,2,1,1,0.5,0.5 Dispense: 31 tablet; Refill: 0 - gabapentin (Neurontin) 100 MG capsule; Titrate from 1 to 4 capsules three times daily as needed for pain Dispense: 100 capsule; Refill: 0 - XR lumbar spine complete 4+ views; Future - Ambulatory referral to Physical Therapy; Future 3. Lumbosacral radiculopathy at S1 - XR lumbar spine complete 4+ views; Future - Ambulatory referral to Physical Therapy; Future 4. Right sided sciatica - XR lumbar spine complete 4+ views; Future - Ambulatory referral to Physical Therapy; Future documented in this encounter [facility] 07-27-2024 History of Present illness Narrative Subjective Patient ID: Belkys Adames is a 83 y.o. female who presents for Enlarged Tonsils Pt presents for evaluation of a pharyngeal mass where my tonsils used to be . Tonsillectomy when 7 y.o. Pt lashawn some discomfort and drooling . Some RT ear discomfort. No tobacco. Occas EtOH. Pt takes ASA. Review of Systems All other systems reviewed and are negative. 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 Age-related osteoporosis without current pathological fracture (CMS/HCC) 03/04/2023 Allergic rhinitis due to allergen 03/04/2023 Atherosclerosis of [place] coronary artery of [place] heart without angina pectoris (CMS/HCC) 03/04/2023 Atrophic vaginitis 03/04/2023 Cerebral meningioma (CMS/HCC) 03/04/2023 Chronic constipation 03/04/2023 Chronic diastolic heart failure (CMS/HCC) 03/04/2023 Chronic fatigue 03/04/2023 Euthyroid sick syndrome 03/04/2023 Gastroesophageal reflux disease without esophagitis 03/04/2023 Granuloma of liver 03/04/2023 Granulomatous disease (CMS/HCC) 03/04/2023 Malignant neoplasm of lower-outer quadrant of right female breast (CMS/HCC) 03/04/2023 Menopausal and postmenopausal disorder 03/04/2023 Mixed dyslipidemia (CMS/HCC) 03/04/2023 Obstructive sleep apnea 03/04/2023 Osteopenia of left forearm 03/04/2023 Overactive bladder 03/04/2023 Overweight 03/04/2023 Periodic limb movements of sleep 03/04/2023 Polyp of stomach 03/04/2023 Primary hypertension (CMS/HCC) 03/04/2023 Recurrent major depressive disorder, in partial remission (HCC) (CMS/HCC) 03/04/2023 Schatzki's ring 03/04/2023 Sleep hypopnea 03/04/2023 Vitamin D deficiency 03/04/2023 White matter disease 03/04/2023 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) 05/20/2023 Cerebral atrophy (CMS/HCC) 05/20/2023 Resolved Ambulatory Problems Diagnosis Date Noted Mixed hyperlipidemia (CMS/HCC) 07/13/2016 Past Medical History: Diagnosis Date Breast cancer (CMS/HCC) CAD (coronary artery disease) (CMS/HCC) Carpal tunnel syndrome of left wrist Citrobacter infection Depression (CMS/HCC) DVT (deep venous thrombosis) (CMS/HCC) Endometriosis Esophageal ulcer Female bladder prolapse Fracture 2013 GERD (gastroesophageal reflux disease) Hiatal hernia Histoplasmosis Hx of hysterectomy Hyperlipidemia (CMS/HCC) Hypothyroidism (CMS/HCC) Miscarriage Other specified disorders of bone density and structure, left thigh Other specified disorders of bone density and structure, right thigh Pneumonia 09/2016 Ulcer of esophagus without bleeding Past Surgical History: Procedure Laterality Date APPENDECTOMY BLADDER SUSPENSION 1994 sling,prolapsed bladder BREAST LUMPECTOMY 01/21/2018 x2 right breast with sentinel node CARPAL TUNNEL RELEASE Bilateral CATARACT EXTRACTION, BILATERAL 03/2015 COLONOSCOPY 08/2018 and EGD 1 DILATION AND CURETTAGE 1962 HYSTERECTOMY [address] Hugo 2009 2003 [facility] LASER SURGERY OF EYE Left 03/2016 SKIN BIOPSY 12/2021 scalp, [facility] SKIN LESION EXCISION 01/2019 TONSILLECTOMY TUBAL LIGATION 1975 Allergies Allergen Reactions Memantine Other, Tinnitus and [...] 2 tablets by mouth in the morning. nabumetone (Relafen) 750 MG tablet Take 1 tablet (750 mg) by mouth in the morning and 1 tablet (750 mg) before bedtime. 60 tablet 0 Nebulizers (Compressor/Nebulizer) misc Use 4 times per day and PRN SOB/wheezing 1 each 0 omeprazole (PriLOSEC) [address] capsule Take 1 capsule (40 mg) by mouth in the morning and 1 capsule (40 mg) in the evening. Take before meals. 180 capsule 1 predniSONE (Deltasone) 20 MG tablet Take 2 tablets (40 mg) by mouth Daily for 5 days 10 tablet 0 simvastatin (Zocor) 10 MG tablet Take 1 [...] the same time 90 tablet 1 [DISCONTINUED] ipratropium (Atrovent) 0.06 % nasal spray Administer 2 sprays into each nostril in the morning and 2 sprays before bedtime. 15 mL 1 [DISCONTINUED] polyethylene glycol, PEG, 3350 (MiraLax) 17 GM/SCOOP powder Take 17 g by mouth if needed. levothyroxine (Synthroid, Levoxyl) 50 MCG tablet Take 0.5 tablets (25 mcg) by mouth in the morning and 0.5 tablets (25 mcg) in the evening. Take before meals. 90 tablet 0 liothyronine (Cytomel) 5 MCG tablet Take 1.5 tablets (7.5 mcg) by mouth in the morning and 1.5 tablets (7.5 mcg) in the evening. Take before meals. [employer] or [employer] brand only. 270 tablet 0 PARoxetine (Paxil) 20 MG tablet Take 1 tablet (20 mg) by mouth in the morning. 90 tablet 1 [DISCONTINUED] sodium chloride (Broncho Saline) 0.9 % aerosol solution Inhale 1 spray 3 (three) times a day as needed for shortness of breath 90 mL 0 No current facility-administered medications on file prior to visit. Objective Last Recorded Vitals Vitals: 07/27/24 0940 BP: 148/74 ENT Physical Exam Constitutional Appearance: patient appears well-developed, well-nourished and well-groomed, Head and Face Appearance: head appears normal and face appears atraumatic; Head and Face comments: IDL - no mass or ulcer. Pharyngeal and BOT palpation normal. Asymmetric pharyngeal muscle constriction noted Ear Ear Canals: right ear canal normal; left ear canal normal; Tympanic Membranes: right tympanic membrane normal; left tympanic membrane normal; Nose External Nose: nares patent bilaterally; external nose normal; Internal Nose: septum normal; Oral Cavity/Oropharynx Tongue: normal; Oral mucosa: normal; Hard palate: normal; Soft palate: normal; Tonsils: normal; Neck Neck: neck normal; neck palpation normal; Thyroid: thyroid normal; Respiratory Inspection: breathing unlabored; normal breathing rate; Auscultation: breath sounds are clear; Cardiovascular Inspection: extremities are warm and well perfused; no peripheral edema present; Auscultation: regular rate and rhythm; Assessment/Plan Diagnoses and all orders for this visit: Pharyngeal mass - Ambulatory referral to ENT Pt reassured her exam is normal visually, on indirect laryngoscopy and palpation, and the appearance of a mass was caused by asymmetric pharyngeal constrictor contraction documented in this encounter [facility] 07-21-2024 History of Present illness Narrative Images from the original note were not included. Patient ID: Belkys Adames is a 83 y.o. female who presents for: Pt reported that she has had two falls in a week (Sat and Saturday). She does not think there are any fx but she has pain down the right side and states she has been using her cane now because anytime she bears weight on the right foot it makes her fall. She states she thinks the second fall was because of the pain from the 1st fall. The first fall was when she was volunteering and she trips and velma herself on the right side trying to catch herself. Review of Systems Respiratory: Negative for cough, shortness of breath and wheezing. Cardiovascular: Negative for chest pain and palpitations. Gastrointestinal: Negative for abdominal pain. Genitourinary: Negative for frequency and urgency. Neurological: Negative for syncope and light-headedness. Objective The patient is pleasant and in no acute distress. The neck is supple and trachea is midline. No masses are appreciated. The heart is regular rate and rhythm without S3, S4. No murmur. The patient has normal respiratory pattern. The breath sounds are symmetrical without evidence of rhonchi or rales. No wheezing. The skin is warm and dry. The lower extremities have trace edema. The patient has good eye contact and speech is clear. Appropriate affect. Visit Vitals Ht 4' 11 Wt 130 [...] mcg) in the evening. Take before meals. [employer] or [employer] brand only. 270 tablet 0 meclizine (Antivert) [...] evening. Take before meals. 180 capsule 1 PARoxetine (Paxil) 20 MG tablet Take 1 tablet (20 mg) by mouth in the morning. 90 tablet 1 simvastatin (Zocor) 10 MG tablet Take 1 [...] the same time 90 tablet 1 [DISCONTINUED] ipratropium (Atrovent) 0.06 % nasal spray Administer 2 sprays into each nostril in the morning and 2 sprays before bedtime. 15 mL 1 [DISCONTINUED] polyethylene glycol, PEG, 3350 (MiraLax) 17 GM/SCOOP powder Take 17 g by mouth if needed. [DISCONTINUED] sodium chloride (Broncho Saline) 0.9 % aerosol solution Inhale 1 spray 3 (three) times a day as needed for shortness of breath 90 mL 0 No current facility-administered medications on file prior to visit. 1. Fall, initial encounter This sounds to me like she simply slipped and/or lost her balance a little bit while descending the stairs. She wrapped around and grabbed onto the railing that this jerked her body especially her low back and hip. The right leg the plant leg and the left leg is the 1 that is 1 around and step down. She did not actually fall all the way onto the stairs or down the stairs. After she steady herself she continued to walk down the stairs. 2. Lumbosacral radiculopathy at L5 We discussed and she has previously had some intermittent back pain and degenerative disc disease. I suspect she has a inflamed this in the pain pattern fits some combination of the L5 and S1 levels. I checked in her previous kidney function lab that we had is not a contraindication to short term NSAIDs. We have mutually agreed to trial of some conservative treatment. If it is not improving we may also need to do an x-ray of the lumbar spine and refer into physical therapy. - predniSONE (Deltasone) 20 MG tablet; Take 2 tablets (40 mg) by mouth Daily for 5 days Dispense: 10 tablet; Refill: 0 - nabumetone (Relafen) 750 MG tablet; Take 1 tablet (750 mg) by mouth in the morning and 1 tablet (750 mg) before bedtime. Dispense: 60 tablet; Refill: 0 3. Lumbosacral radiculopathy at S1 In prescribing a new medication consideration of [...] with the adjustment in their medication. - predniSONE (Deltasone) 20 MG tablet; Take 2 tablets (40 mg) by mouth Daily for 5 days Dispense: 10 tablet; Refill: 0 - nabumetone (Relafen) 750 MG tablet; Take 1 tablet (750 mg) by mouth in the morning and 1 tablet (750 mg) before bedtime. Dispense: 60 tablet; Refill: 0 4. Acute pain of right foot As above - predniSONE (Deltasone) 20 MG tablet; Take 2 tablets (40 mg) by mouth Daily for 5 days Dispense: 10 tablet; Refill: 0 - nabumetone (Relafen) 750 MG tablet; Take 1 tablet (750 mg) by mouth in the morning and 1 tablet (750 mg) before bedtime. Dispense: 60 tablet; Refill: 0 5. Right hip pain This was actually going on prior to her mishap. She thinks the pain in the hip is actually what caused her to stumble on the stairs. And she directly relates that to her 2nd fall. We will pursue diagnostic imaging - XR hip right 2 or 3 views; Future documented in this encounter [facility] 07-14-2024 History of Present illness Narrative Images [...] mcg) in the evening. Take before meals. [employer] or [employer] brand only. 270 tablet 0 meclizine (Antivert) [...] medications on file prior to visit. 1. [id number] condition (Primary) Acute that the patient believes [...] doing. 5. Overweight documented in this encounter [facility] 06-23-2024 History of Present illness Narrative Images [...] the evening. Take before meals. [employer] or [employer] brand only. 270 tablet 0 PARoxetine (Paxil) [...] mL; Refill: 0 documented in this encounter [facility] 06-15-2024 Telephone encounter Note Post surgical right mastectomy forms completed. [facility] 06-15-2024 Miscellaneous Notes Post surgical right mastectomy forms completed. documented in this encounter [facility] 03-24-2024 Hospital Discharge instructions Patient Education 03/24/2024 [...] including vitamins, herbs, eye drops, creams, and [id number] medicines. Any problems you or family members [...] provider tells you to take them. Taking [id number] medicines, vitamins, herbs, and supplements. General instructions [...] Follow these instructions at home: Medicines Take qnny-[id number] and prescription medicines only as told by [...] provider. Document Revised: 03/23/2022 Document Reviewed: 03/23/2022 [employer] [facility] [employer] Patient Education 2022 [email or web address]. Follow Up Care 01/21/2024 15:37:15 With:NATHALIE LARIOS PA-C, URL Address: [address] [place] [address] When: Unknown [facility] 01-21-2024 Hospital Discharge instructions Patient Education 01/21/2024 [...] nerve stimulation). ?For women, using a medical practice manager to prevent urine leaks. This is a [...] right after experiencing incontinence. General instructions Take [id number] and prescription medicines only as told by [...] important. Where to find more information [employer] [place] of [employer] and [employer]estive and Kidney Diseases: www.niddk.nih.gov [employer]: www.urologyhealth.org Contact a health care [...] provider. Document Revised: 04/21/2021 Document Reviewed: 04/21/2021 [employer]lex Patient Education 2022 [email or web address]. Follow Up Care 01/16/2023 15:54:08 With:ROBERT CONRAD, NATHALIE Vickers, URL Address: [address] [place] [address] [phone] When: Unknown [facility] [place] 11-06-2023 History of Present illness Narrative Patient [...] 0.55 - 1.02 mg/dL Final TBH EGFR-AF CUBAN 08/14/2023 >60 >=60 Final TBH EGFR-NON AF CUBAN 08/14/2023 >60 >=60 Final BUN CREATININE RATIO [...] - 180 ng/dL Final Comment: Performed at: [address] [id number] Printer Apprentice: Devin Pichardo PhD, Phone: [phone] REVERSE T3, SERUM 07/24/2023 21.2 9.2 - 24.1 ng/dL Final Comment: This test was developed and its performance characteristics determined by [employer]. It has not been cleared or approved by the Food and Drug Administration. Performed at: [address] [id number] Printer Apprentice: Daryl Lees MD, Phone: [phone] [employer] Result Encounter on 07/08/2023 Component Date Value Ref Range Status BLOOD UREA NITROGEN 07/08/2023 22.0 (H) 7.0 - 18.0 mg/dL Final CREATININE 07/08/2023 1.01 0.55 - 1.02 mg/dL Final TBH EGFR-AF CUBAN 07/08/2023 >60 >=60 Final TBH EGFR-NON AF CUBAN 07/08/2023 53 (L) >=60 Final Visit Vitals [...] I discussed with the patient and/or their telephone sales representative, their fatigue issues. We discussed [...] were answered. Overweight documented in this encounter [facility] 01-16-2023 Hospital Discharge instructions Patient Education 01/16/2023 [...] your health care provider. General instructions Take oxwl-zli-luuthlk and prescription medicines only as told by [...] provider. Document Revised: 06/05/2021 Document Reviewed: 06/05/2021 Vitriflex Patient Education 2022 [email or web address]. Follow Up Care 01/11/2023 11:08:02 With:NATHALIE LARIOS PA-C, URL Address: [address] [facility] [place] [address] [phone] When:01/17/2024 [facility] [place] 03-01-2022 Miscellaneous Notes Order faxed. Nataly Batista RN Received call from Yamilet at [facility] Scheduling stating pt is scheduled for mammogram there but order is for screening and pt is less than 5 years out from her breast cancer so they would like dx ria order. MOR: Order pending. Please review and sign if agreeable. Nataly Batista RN documented in this encounter [facility] 01-11-2022 Note HNO ID: [id number] Author: Pranav Bermudez MD Service: ? Author Type: Physician Type: Progress Notes Filed: 01/11/2022 8:32 PM Note Text: NAME: Yanet Adames [facility] NO.: [id number] DATE OF SERVICE: January 11, 2022 Some [...] her diagnosis was found originally in [place] after which she decided to move up here permanently. Her is retired from [employer]. ? Some background history that are reviewed today reveals that she originally presented in consultation 02/06/18 with a new diagnosis of breast cancer. She was taken to lumpectomy 01/24/18 with the finding of a 2 cm sized ER and ID positive, HER 2 negative breast cancer. 0/5 [...] right axillary node excision and lumpectomy 2cm ER/ID positive 100%/80%, Her2 negative by FISH right [...] intact. Neck: Supp (more content not included)... [facility] 01-11-2022 History of Present illness Narrative Images from the original note were not included. NAME: Yanet Adames CLINIC NO.: [id number] DATE OF SERVICE: January 11, 2022 Some [...] her diagnosis was found originally in [place] after which she decided to move up here permanently. Her is retired from [employer]. Some background history that are reviewed today reveals that she originally presented in consultation 02/06/18 with a new diagnosis of breast cancer. She was taken to lumpectomy 01/24/18 with the finding of a 2 cm sized ER and ID positive, HER 2 negative breast cancer. 0/5 [...] right axillary node excision and lumpectomy 2cm ER/ID positive 100%/80%, Her2 negative by FISH right [...] 2 TABLETS DAILY TOLERATING SIDE EFFECTS STRONTIUM [id number] ORAL Take by mouth. MULTI-VITAMIN ORAL Refill(s) [...] GRAM VAGINALLY THREE TIMES WEEKLY thyroid, pork, (STAINED GLASS PAINTER THYROID) 60 mg STAINED GLASS PAINTER Thyroid 60 mg tablet TAKE 1 TABLET [...] by mouth once daily. calcium carbonate/vitamin D2 ([id number] ORAL) Take by mouth. Magnesium 250 mg [...] which included preparing to see the patient, gvsm-hl-jmmb patient care, completing clinical documentation, performing a medically appropriate examination, communicating results to the patient/family/caregiver and care coordination (not separately reported). Pranav Bermudez MD, [place], [place] CC: Pranav Bermudez MD [address] [place] [address] [facility] [address] Homero Moses MD [address] [place] [phone] documented in this encounter [facility] 07-13-2021 Note HNO ID: [id number] Author: Pranav Bermudez MD Service: ? Author Type: Physician Type: Progress Notes Filed: 07/13/2021 1:04 PM Note Text: NAME: Yanet Adames CLINIC NO.: [id number] DATE OF SERVICE: July 13, 2021 Some [...] her diagnosis was found originally in [place] after which she decided to move up here permanently. Her is retired from [employer]. ? Some background history that are reviewed today reveals that she originally presented in consultation 02/06/18 with a new diagnosis of breast cancer. She was taken to lumpectomy 01/24/18 with the finding of a 2 cm sized ER and ID positive, HER 2 negative breast cancer. 0/5 [...] right axillary node excision and lumpectomy 2cm ER/ID positive 100%/80%, Her2 negative by FISH right [...] Percocet [Oxycodone* Me (more content not included)... [facility] 04-28-2021 Note HNO ID: [id number] Author: Jose M Alvarado, fisher oyster Service: Radiology Author Type: Audiology Director Type: Progress Notes Filed: 04/28/2021 10:05 AM [...] LIAM Magana April 28, 2021 9:36 AM [facility] 04-28-2021 History of Present illness Narrative Radiology [...] 2021 9:36 AM documented in this encounter [facility] 04-14-2021 Note HNO ID: [id number] Author: Marcus Tirado MD Service: ? Author Type: Physician Type: Progress Notes Filed: 04/18/2021 8:42 AM Note Text: [facility] MULTIPLE SCLEROSIS NEW PATIENT EVALUATION/CONSULTATION Referral source: Shadia Barrera, OD [address] [place] [address] Also followed by: Patient Care Team: Edward Aguilar Hemeyer as PCP - General (Family Practice) Shadia [...] a past medical history of stage I ER/ID+ve HER-2neu -ve breast cancer s/p lumpectomy, radiation and adjuvant anastrazole, Hyppothyroidism, hypercholesterolemia, and osteoporosis. She presents today with a chief concern of abnormal visual starkey testing (perimetry). She was getting her routine eye examination when the behavioral health rn/drip molder who noted an abnormality on her exam. [...] VAGINALLY THREE TIMES WEEKLY - thyroid, pork, (STAINED GLASS PAINTER THYROID) 60 mg STAINED GLASS PAINTER Thyroid 60 mg tablet TAKE 1 TABLET [...] mouth once daily (more content not included)... [facility] Evaluation + Plan note Future Appointments Appointment Date:01/11/2023 10:45:00 AM Scheduled Provider:Aldair RIOJAS MD Location:[facility] Appointment Type:URO Office Visit [facility] [place] Evaluation + Plan note Future Appointments Appointment Date:01/21/2024 02:30:00 PM Scheduled Provider:NATHALIE LARIOS PA-C Location:[facility] Appointment Type:URO Office Visit [facility] Evaluation + Plan note Future Appointments Appointment Date:03/24/2024 02:00:00 PM Scheduled Provider:NATHALIE LARIOS PA-C Location:[facility] Appointment Type:URO Office Visit [facility] Evaluation + Plan note Future Appointments Appointment Date:09/14/2024 01:30:00 PM Scheduled Provider: Location:[facility] Appointment Type:Urology CALL PAT FT Appointment Date:09/15/2024 03:00:00 PM Scheduled Provider: Location:[facility] Appointment Type:Urology FT Appointment Date:10/02/2024 11:20:00 AM Scheduled Provider:NATHALIE LARIOS PA-C Location:[facility] Appointment Type:URO Office Visit Appointment Date:10/06/2024 09:00:00 AM Scheduled Provider: Location:[facility] Appointment Type:URO Nurse Visit [facility] Evaluation + Plan note Future Appointments Appointment Date:09/14/2024 01:30:00 PM Scheduled Provider: Location:[facility] Appointment Type:Urology CALL PAT FT Appointment Date:09/15/2024 03:00:00 PM Scheduled Provider: Location:[facility] Appointment Type:Urology FT Appointment Date:10/02/2024 11:20:00 AM Scheduled Provider:NATHALIE LARIOS PA-C Location:[facility] Appointment Type:URO Office Visit Appointment Date:10/06/2024 09:00:00 AM Scheduled Provider: Location:[facility] Appointment Type:URO Nurse Visit Diagnostic Tests PendingUrine Culture 09/10/24 [facility] Evaluation + Plan note Future Appointments Appointment Date:11/16/2024 01:00:00 PM Scheduled Provider: Location:[facility] Appointment Type:Urology CALL PAT FT Appointment Date:11/17/2024 03:00:00 PM Scheduled Provider: Location:[facility] Appointment Type:Urology FT Appointment Date:12/01/2024 09:40:00 AM Scheduled Provider:NATHALIE LARIOS PA-C Location:[facility] Appointment Type:URO Office Visit [facility] Evaluation + Plan note Future Appointments Appointment Date:12/08/2024 02:15:00 PM Scheduled Provider: Location:[facility] Appointment Type:Urology FT Appointment Date:12/24/2024 10:00:00 AM Scheduled Provider:NATHALIE LARIOS PA-C Location:[facility] Appointment Type:URO Office Visit [facility] Evaluation note Diagnosis Age-related osteoporosis without current pathological fracture- Primary Senile osteoporosis Malignant neoplasm of lower-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, estrogen receptor positive (HCC) [facility]* Diagnosis Malignant neoplasm of right breast in female, estrogen receptor positive, unspecified site of breast (HCC)- Primary Osteoporosis due to aromatase inhibitor Other osteoporosis [facility] Diagnosis Malignant neoplasm of lower-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, estrogen receptor positive (HCC)- Primary [facility]* Diagnosis Cerebral meningioma (CMS/HCC)- Primary Benign neoplasm of cerebral meninges 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 Chronic fatigue Other malaise and fatigue Overweight Recurrent major depressive disorder, in partial remission (HCC) (CMS/HCC) [facility] Diagnosis Diplopia [facility]* Diagnosis COVID-19- Primary [facility]* Diagnosis 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 Rhinorrhea Other diseases of nasal cavity and sinuses Enlarged tonsils Hypertrophy of tonsils alone Myalgia, multiple sites Overweight [facility]* Diagnosis Pharyngeal mass Unspecified disease of pharynx [facility]* Diagnosis Fall, initial encounter Lumbosacral radiculopathy at L5 Lumbosacral radiculopathy at S1 Acute pain of right foot Right hip pain Pain in joint, pelvic region and thigh documented in this encounter [facility]* Diagnosis Fall, sequela Lumbosacral radiculopathy at L5 Lumbosacral radiculopathy at S1 Right sided sciatica Sciatica Primary hypertension (CMS/HCC) Unspecified essential hypertension Mixed dyslipidemia (CMS/HCC) Gastroesophageal reflux disease without esophagitis Esophageal reflux documented in this encounter [facility]* Diagnosis Fall, sequela Lumbosacral radiculopathy at L5 Lumbosacral radiculopathy at S1 Right sided sciatica Sciatica documented in this encounter [facility]* Diagnosis Primary hypertension (CMS/HCC)- Primary Unspecified essential hypertension Atherosclerosis of [place] tribe coronary artery of [place] tribe heart without angina pectoris (CMS/HCC) Mixed dyslipidemia (CMS/HCC) Myalgia due to statin Gastroesophageal reflux disease without esophagitis Esophageal reflux Sleep initiation disorder documented in this encounter [facility]* Diagnosis Fall, sequela- Primary Lumbosacral radiculopathy at L5 Lumbosacral radiculopathy at S1 Right sided sciatica Sciatica [facility]* Diagnosis Lumbosacral radiculopathy at L5 [facility]* Diagnosis Fall, sequela- Primary Lumbosacral radiculopathy at L5 Lumbosacral radiculopathy at S1 Right sided sciatica Sciatica documented [facility]* Diagnosis Fall, sequela- Primary Lumbosacral radiculopathy at L5 Lumbosacral radiculopathy at S1 Right sided sciatica Sciatica [facility]* Diagnosis 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 Chronic fatigue Other malaise and fatigue 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) Chronic pain syndrome Closed wedge compression fracture of L1 vertebra, initial encounter (HCC) (CMS/[facility]) Lumbosacral radiculopathy due to degenerative joint disease of spine Osteoarthritis of spine with radiculopathy, lumbar region Atherosclerosis of aorta ([facility]) Atherosclerosis of aorta [facility]* Diagnosis Primary hypertension ([facility]) Unspecified essential hypertension [facility]* Diagnosis Chronic pain syndrome- Primary Lumbosacral radiculopathy due to degenerative joint disease of spine Closed wedge compression fracture of L1 vertebra, sequela Controlled substance agreement signed Medication monitoring encounter Encounter for therapeutic drug monitoring Sleep initiation disorder Polypharmacy Issue of repeat prescriptions Overweight [facility]* Diagnosis Walking pneumonia- Primary Pneumonia due to Mycoplasma pneumoniae Moderate vascular dementia with psychotic disturbance ([facility]/HCC) [facility]* Diagnosis Primary hypertension ([facility]/HCC) Unspecified essential hypertension Mixed dyslipidemia ([facility]) Myalgia due to statin Gastroesophageal reflux disease without esophagitis Esophageal reflux [facility]* Diagnosis Dermatitis- Primary Contact dermatitis and other eczema, due to unspecified cause Non-seasonal allergic rhinitis due to other allergic trigger [facility]* Diagnosis 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 Chronic fatigue Other malaise and fatigue Recurrent major depressive disorder, in partial remission Alzheimer's disease with late onset (CODE) ([facility]) Dermatitis Contact dermatitis and other eczema, due to unspecified cause Sleep initiation disorder [facility]* Diagnosis Full incontinence of feces- Primary [facility] Narrative No data available for this section [facility] Hospital Discharge instructions No data available for this section [facility] Progress note No data available for this section [facility] [place] Reason for referral (narrative)* Diagnostic Procedure Only (Routine) - Pending Review Specialty Diagnoses / Procedures Referred By Dhavalac t Referred To Contact [facility]ING Diagnoses Malignant neoplasm of lower-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, estrogen receptor positive (HCC) Procedures RIA DIAGNOSTIC BILAT DIAGNOSTIC MAMMOGRAPHY COMPUTER-AIDED DETCJ BI Sindi Trevino APRN.CNP [address] [place] [address] [place] [address] [facility] [address] [place] [address] Referral ID Status Reason Start Date Expiration Date Visits Requested Visits Authorized [id number] Pending Review Auto-Generat ed Referral 03/01/2022 03/31/2023 [address] [facility] for referral (narrative)* Diagnostic Procedure Only (Routine) - Closed Specialty Diagnoses / Procedures Referred By Angélica t Referred To Contact [facility] IMAGING Diagnoses Diplopia Procedures MRI BRAIN WO/W IVCON MRI BRAIN COMBO Marcus Tirado MD [address] [place] [address] [place] [address] Referral ID Status Reason Start Date Expiration Date Visits Re quested Visits Authorized [id number] Closed 04/28/2021 08/01/2021 [address] [facility] for visit Narrative* Rehabilitation - Outpatient (Routine) - Authorized Specialty Diagnoses / Procedures Referred By Contalexei t Referred To Contact Physical Therapy Diagnoses Fall, sequela Lumbosacral radiculopathy at L5 Lumbosacral radiculopathy at S1 Right sided sciatica Procedures ID OFFICE/OUTPATIENT NEW [facility] 60 MINUTES Homero Moses MD [address] [address] Phone: tel: fax: Art Amin, PT [address] [place] [address] Phone: tel: fax: Referral ID Status Reason Start Date Expiration Date Visits Requested Visits Authorized [id number] Authorized Specialty Services Required 08/04/2024 01/31/2025 99 99 [facility] HealthcareReason for visit Narrative* Rehabilitation - Outpatient (Routine) - Authorized Specialty Diagnoses / Procedures Referred By Angélica t Referred To Contact Physical Therapy Diagnoses Fall, sequela Lumbosacral radiculopathy at L5 Lumbosacral radiculopathy at S1 Right sided sciatica Procedures ID OFFICE/OUTPATIENT NEW HIGH MDM 60 MINUTES Homero Moses MD 112 [facility] [address] [place] [address] Phone: tel: fax: Art Amin, PT [address] [place] [address] Phone: tel: fax: Referral ID Status Reason Start Date Expiration Date Visits Requested Visits Authorized [id number] Authorized Specialty Services Required 08/04/2024 09/29/2024 99 99 [facility] Healthcare Summary Purpose Family History No Family History Records FoundNo Family History Records FoundNo Family History Records Found No data available for this section No data available for this section No data available for this section No data available for this section No data available for this section No Family History Records FoundNo Family History Records Found No data available for this section No data available for this section No data available for this section No Family History Records Found No data available for this section No Family History Records FoundNo Family History Records Found Advance Directives No Advanced Directives Records FoundDocuments on File Type Date Recorded Patient Child Nutrition Assistant Expl anation Advance Directives and Living Will 05/25/2019 1990-08-27 Power of Oil Heater Installer Documents on File Type Date Recorded Patient Child Nutrition Assistant Expl anation Advance Directives and Living Will 05/25/2019 1990-08-27 Power of Oil Heater Installer Medications Administered Section Inactive Administered Medications - [...] section and content) DATE CREATED AUTHOR 03/20/2018 [facility] DATE CREATED AUTHOR AUTHOR'S ORGANIZ ATION 03/02/2022 [facility] DATE CREATED AUTHOR AUTHOR'S ORGANIZ ATION 02/13/2023 [facility] DATE CREATED AUTHOR AUTHOR'S ORGANIZ ATION 09/15/2024 [facility] DATE CREATED AUTHOR AUTHOR'S ORGANIZ ATION 09/16/2024 [facility] DATE CREATED AUTHOR AUTHOR'S ORGANIZ ATION 12/03/2024 [facility] DATE CREATED AUTHOR AUTHOR'S ORGANIZ ATION 03/22/2025 [facility] DATE CREATED AUTHOR AUTHOR'S ORGANIZ ATION 04/30/2025 [facility] EPIC Source Comments (unrecognize d section and content) In the event this informatio n is protected by the Federal Confidentiality of Alcohol and Drug Abuse Patient Records regulations: The Federal rules restrict any use of the information to criminally investigate or prosecute any alcohol or drug abuse patient.[place]health[place] the event this information is protected by the Federal Confidentiality of Alcohol and Drug Abuse Patient Records regulations: The Federal rules restrict any use of the information to criminally investigate or prosecute any alcohol or drug abuse patient.[place]health[place] the event this information is protected by the Federal Confidentiality of Alcohol and Drug Abuse Patient Records regulations: The Federal rules restrict any use of the information to criminally investigate or prosecute any alcohol or drug abuse patient.[place]health[place] the event this information is protected by the Federal Confidentiality of Alcohol and Drug Abuse Patient Records regulations: The Federal rules restrict any use of the information to criminally investigate or prosecute any alcohol or drug abuse patient.[facility] Reason for Visit (unrecogniz ed section and content) Specialty Diagnoses / Procedures Referred By Contac t Referred To Contact Diagnoses Malignant neoplasm of lower-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, estrogen receptor positive (HCC) Age-related osteoporosis without current pathological fracture Procedures DENOSUMAB INJECTION Pranav Bermudez MD [address] [place] [address] Jefe Treat [address] [place] [address] Referral ID Status Reason Start Date Expiration Date V isits Requested Visits Authorized [id number] Waiting for Response 07/13/2021 01/15/2022 99 99 Reason Comments Breast Cancer Reason Comments Orders Reason Comments Memory Loss Reason Comments Radiology MRI Specialty Diagnoses / Procedures Referred By Contac t Referred To Contact MR IMAGING Diagnoses Diplopia Procedures MRI BRAIN WO/W IVCON MRI BRAIN MARTITAO Marcus Tirado MD [address] [place] [address] [facility] [place] [address] Referral ID Status Reason Start Date Expiration Date Visits Re quested Visits Authorized [id number] Closed 04/28/2021 08/01/2021 1 1 Reason Comments Covid Reason Comments Follow-up Reason Comments Enlarged Tonsils Specialty Diagnoses / Procedures Referred By Angélica myers Referred To Contact Otolaryngology Diagnoses Enlarged tonsils Procedures ID OFFICE/OUTPATIENT NEW HIGH MDM 60 MINUTES Homero Moses MD [address] [place] [address] Phone: tel: fax: Argentina Clemons MD [address] [place] [address] Phone: tel: fax: Referral ID Status Reason Start Date Expiration Date V isits Requested Visits Authorized [id number] Closed Specialty Services Required 07/15/2024 01/11/2025 1 1 Reason Comments Fall Reason Onset Date Comments PT Initial Eval 08/05/2024 Tried to contact to set up PT Eval for Fall, sequela, Lumbosacral radiculopathy at L5, Lumbosacral radiculopathy at S1, Right sided sciatica. I had to lm requesting a call back. Call Back 08/05/2024 She contacted an d we scheduled PT Eval for 08/07/24; noted copay. Reason Comments Fall Reason Comments Hypertension Hyperlipidemia GERD Reason Onset Date Comments Care Coordination 08/20/2024 Reason Comments Hypothyroidism Anxiety Reason Comments Med Refill Reason Comments Pain Reason Comments URI Reason Comments Allergic Rhinitis Care Teams (unrecognized sec tion and content) Chronic Condition Nurse Relationship Specialty Start Date End Date Homero Moses [address] [place] [address] (Fax) PCP - General Family Practice 05/09/15 Shadia Barrera, DO [address] [place] [address] Referring Optometry 04/10/21 Chronic Condition Nurse Relationship Specialty Start Date End Date Homero [address] [place] [address] (Fax) PCP - General Family Practice 05/09/15 Shadia Barrera W, DO [address] [place] [address] Referring Optometry 04/10/21 Chronic Condition Nurse Relationship Specialty Start Date End Date Homero Moses MD [address] [place] [address] (Fax) PCP - General Family Practice 05/09/15 Shadia Barrera W, DO [address] [place] [address] Referring Optometry 04/10/21 Chronic Condition Nurse Relationship Specialty Start Date End Date Homero Moses MD [address] [place] [address] (Fax) PCP - Devoted 09/30/20 Homero Moses MD [address] [place] [address] (Fax) PCP - General Family Medicine 02/11/23 Chronic Condition Nurse Relationship Specialty Start Date End Date Homero Moses MD [address] [place] [address] (Fax) PCP - Devoted 09/30/20 Homero Moses MD [address] [place] [address] (Fax) PCP - General Family Medicine 02/11/23 Chronic Condition Nurse Relationship Specialty Start Date End Date Homero Moses MD [address] [place] [address] (Fax) PCP - Devoted 09/30/20 Homero Moses MD [address] [place] [address] (Fax) PCP - General Family Medicine 02/11/23 Chronic Condition Nurse Relationship Specialty Start Date End Date Homero Moses MD [address] [place] [address] (Fax) PCP - General Family Medicine 05/09/15 Shadia Barrera OD [address] [place] [address] Referring Optometry 04/10/21 Chronic Condition Nurse Relationship Specialty Start Date End Date Homero Moses MD [address] [facility] [place] [id number] (Fax) PCP - Devoted 09/30/20 Homero Moses MD [address] [facility] [place] [address] (Fax) PCP - General Family Medicine 02/11/23 Chronic Condition Nurse Relationship Specialty Start Date End Date Homero Moses MD [address] [facility] [place] [address] (Fax) PCP - Devoted 09/30/20 Homero Moses MD [address] [facility] [place] [address] (Fax) PCP - General Family Medicine 02/11/23 Chronic Condition Nurse Relationship Specialty Start Date End Date Homero Moses MD [address] [facility] [place] [address] (Fax) PCP - Devoted 09/30/20 Homero Moses MD [address] [place] [address] (Fax) PCP - General Family Medicine 02/11/23 Chronic Condition Nurse Relationship Specialty Start Date End Date Homero Moses MD [address] [place] [address] (Fax) PCP - Devoted 09/30/20 Homero Moses MD [address] [place] [address] (Fax) PCP - General Family Medicine 02/11/23 Chronic Condition Nurse Relationship Specialty Start Date End Date Homero Moses MD [address] [place] [address] (Fax) PCP - Devoted 09/30/20 Homero Moses MD [address] [place] [address] (Fax) PCP - General Family Medicine 02/11/23 Chronic Condition Nurse Relationship Specialty Start Date End Date Homero Moses MD [address] [place] [address] (Fax) PCP - Devoted 09/30/20 Homero Moses MD [address] [place] [address] (Fax) PCP - General Family Medicine 02/11/23 Chronic Condition Nurse Relationship Specialty Start Date End Date Homero Moses MD [address] [place] [address] (Fax) PCP - Devoted 09/30/20 Homero Moses MD [address] [place] [address] (Fax) PCP - General Family Medicine 02/11/23 Chronic Condition Nurse Relationship Specialty Start Date End Date Homero Moses MD [address] [place] [address] (Fax) PCP - Devoted 09/30/20 Homero Moses MD [address] [place] [address] (Fax) PCP - General Family Medicine 02/11/23 Chronic Condition Nurse Relationship Specialty Start Date End Date Homero Moses MD [address] [place] [address] (Fax) PCP - Devoted 09/30/20 Homero Moses MD [address] [place] [address] (Fax) PCP - General Family Medicine 02/11/23 Chronic Condition Nurse Relationship Specialty Start Date End Date Homero Moses MD [address] [place] [address] (Fax) PCP - Devoted 09/30/20 Homero Moses MD [address] [place] [address] (Fax) PCP - General Family Medicine 02/11/23 Chronic Condition Nurse Relationship Specialty Start Date End Date Homero Moses MD [address] [place] [address] (Fax) PCP - Devoted 09/30/20 Homero Moses MD [address] [place] [address] (Fax) PCP - General Family Medicine 02/11/23 Chronic Condition Nurse Relationship Specialty Start Date End Date Hmoero Moses MD [address] [place] [address] (Fax) PCP - Devoted 09/30/20 Homero Moses MD [address] [place] [address] (Fax) PCP - General Family Medicine 02/11/23 Chronic Condition Nurse Relationship Specialty Start Date End Date Homero Moses MD [address] [place] [address] (Fax) PCP - Devoted 09/30/20 Homero Moses MD [address] [place] [address] (Fax) PCP - General Family Medicine 02/11/23 Chronic Condition Nurse Relationship Specialty Start Date End Date Homero Moses MD [address] [place] [address] (Fax) PCP - Devoted 09/30/20 Homero Moses MD [address] [place] [address] (Fax) PCP - General Family Medicine 02/11/23 Chronic Condition Nurse Relationship Specialty Start Date End Date Homero Moses MD [address] [place] [address] (Fax) PCP - Devoted 09/30/20 Homero Moses MD [address] [place] [address] (Fax) PCP - General Family Medicine 02/11/23 Chronic Condition Nurse Relationship Specialty Start Date End Date Homero Moses MD [address] [place] [address] (Fax) PCP - Devoted 09/30/20 Homero Moses MD [address] [place] [address] (Fax) PCP - General Family Medicine 02/11/23 Chronic Condition Nurse Relationship Specialty Start Date End Date Homero Moses MD [address] [place] [address] (Fax) PCP - Devoted 09/30/20 Homero Moses MD [address] [place] [address] (Fax) PCP - General Family Medicine 02/11/23 Chronic Condition Nurse Relationship Specialty Start Date End Date Homero Moses MD [address] [place] [address] (Fax) PCP - Devoted 09/30/20 Homero Moses MD [address] [place] [address] (Fax) PCP - General Family Medicine 02/11/23 Chronic Condition Nurse Relationship Specialty Start Date End Date Homero Moses MD [address] [place] [address] (Fax) PCP - Devoted 09/30/20 Homero Moses MD [address] [place] [address] (Fax) PCP - General Family Medicine 02/11/23 Chronic Condition Nurse Relationship Specialty Start Date End Date Homero Moses MD [address] [place] [address] (Fax) PCP - Devoted 09/30/20 Homero Moses MD [address] [place] [address] [place] [address] (Fax) PCP - General Family Medicine 02/11/23 Chronic Condition Nurse Relationship Specialty Start Date End Date Homero Moses MD [address] [place] [address] [place] [address] (Fax) PCP - Devoted 09/30/20 Homero Moses MD [address] [place] [address] [place] [address] (Fax) PCP - General Family Medicine 02/11/23 Chronic Condition Nurse Relationship Specialty Start Date End Date Homero Moses MD [address] [place] [address] (Fax) PCP - Devoted 09/30/20 Homero Moses MD [address] [place] [address] [place] [address] (Fax) PCP - General Family Medicine 02/11/23 Chronic Condition Nurse Relationship Specialty Start Date End Date Homero Moses MD [address] [place] [address] (Fax) PCP - Devoted 09/30/20 Homero Moses MD [address] [place] [address] (Fax) PCP - General Family Medicine 02/11/23 Chronic Condition Nurse Relationship Specialty Start Date End Date Homero Moses MD [address] [place] [address] (Fax) PCP - Devoted 09/30/20 Homero Moses MD [address] [place] [address] (Fax) PCP - General Family Medicine 02/11/23 Chronic Condition Nurse Relationship Specialty Start Date End Date Homero Moses MD [address] [place] [address] (Fax) PCP - Devoted 09/30/20 Homero Moses MD [address] [place] [address] (Fax) PCP - General Family Medicine 02/11/23 Chronic Condition Nurse Relationship Specialty Start Date End Date Homero Moses MD [address] [place] [address] (Fax) PCP - Devoted 09/30/20 Homero Moses MD [address] [place] [address] (Fax) PCP - General Family Medicine 02/11/23 Chronic Condition Nurse Relationship Specialty Start Date End Date Homero Moses MD [address] [place] [address] (Fax) PCP - Devoted 09/30/20 Homero Moses MD [address] [place] [address] (Fax) PCP - General Family Medicine 02/11/23 Chronic Condition Nurse Relationship Specialty Start Date End Date Homero Moses MD [address] [place] [address] (Fax) PCP - Devoted 09/30/20 Homero Moses MD [address] [place] [address] (Fax) PCP - General Family Medicine 02/11/23 Chronic Condition Nurse Relationship Specialty Start Date End Date Homero Moses MD [address] [place] [address] (Fax) PCP - Devoted 09/30/20 Homero Moses MD [address] [place] [address] (Fax) PCP - General Family Medicine 02/11/23 Chronic Condition Nurse Relationship Specialty Start Date End Date Homero Moses MD [address] [place] [address] (Fax) PCP - Devoted 09/30/20 Homero Moses MD [address] [place] [address] (Fax) PCP - General Family Medicine 02/11/23 Chronic Condition Nurse Relationship Specialty Start Date End Date Homero Moses MD [address] [place] [address] (Fax) PCP - Devoted 09/30/20 Homero Moses MD [address] [place] [address] (Fax) PCP - General Family Medicine 02/11/23 Chronic Condition Nurse Relationship Specialty Start Date End Date Homero Moses MD [address] [place] [address] (Fax) PCP - Devoted 09/30/20 Homero Moses MD [address] [place] [address] (Fax) PCP - General Family Medicine 02/11/23 Chronic Condition Nurse Relationship Specialty Start Date End Date Homero Moses MD [address] [place] [address] (Fax) PCP - Devoted 09/30/20 Homero Moses MD [address] [place] [address] (Fax) PCP - General Family Medicine 02/11/23 Chronic Condition Nurse Relationship Specialty Start Date End Date Homero Moses MD [address] [place] [address] (Fax) PCP - Devoted 09/30/20 Homero Moses MD [address] [place] [address] (Fax) PCP - General Family Medicine 02/11/23 Chronic Condition Nurse Relationship Specialty Start Date End Date Homero Moses MD [address] [place] [address] (Fax) PCP - Devoted 09/30/20 Homero Moses MD [address] [place] [address] (Fax) PCP - General Family Medicine 02/11/23 Chronic Condition Nurse Relationship Specialty Start Date End Date Homero Moses MD [address] [place] [address] (Fax) PCP - Devoted 09/30/20 Homero Moses MD [address] [place] [address] PCP - General Family Medicine 02/11/23 FOR [...] BE BASED ON THE PRIMARY CLINICAL RECORDS. [employer] [facility]. provides no warranty or guarantee of the accuracy or completeness of information in this document.
--- OUTSIDE RECORDS SUMMARY | 2025-04-30 23:28 | XMS_ITS | Encounter Summary ---
Author Organization [facility] Address [address] [place] [address] Care Team Providers Care Big Data Admin Name Role Phone Homero Mckeon MD Unavailable [phone] Homero Mckeon MD Primary Care Provider [phone] Reason for Visit * Reason Comments Med Refill Encounter Details Date Type Department Care Team (Late Contact Info) Description 06/22/2023 Refill [facility] [place] [address] [place] [address] Homero Mckeon MD [address] [address] (Fax) Mixed hyperlipidemia ; Major depressive disorder, [...] Visit [facility] [place] [facility] Family Medicine 112 [facility] 100 [place] [address] Homero Mckeon MD [address] [address] 09/14/2025 11:30 AM EST Office Visit [facility] [place] [facility] [address] [place] [address] [place] [address] Homero Mckeon MD [address] [facility] 100 [place] [address] (Fax) documented as of this encounter Visit Diagnoses Diagnosis Mixed hyperlipidemia Mixed hyperlipidemia Major depressive disorder, recurrent, in partial remission documented in this encounter Care Teams Big Data Admin Relationship Specialty Start Date End Date Homero Mckeon MD [address] [place] [address] [place] [address] PCP - Devoted 09/30/20 Homero Mckeon MD [address] [place] [address] [place] [address] PCP - General Family Medicine 02/11/23 documented as of this encounter
--- OUTSIDE RECORDS SUMMARY | 2025-04-30 23:28 | XMS_ITS | Encounter Summary ---
Author Organization [facility] Address [address] [place] [place] [address] Care Team Providers Care Senior Research Consultant Name Role Phone Homero Mckeon MD Unavailable [phone] Homero Mckeon MD Primary Care Provider + [phone] Encounter Details Date Type Department Care Team (Late Contact Info) Description 11/11/2023 Orders Only [facility] [place] [facility] Family Medicine [address] [facility] [place] [address] Homero Mckeon MD [address] [address] (Fax) Social History Tobacco Use Types Packs/Day [...] Visit [facility] [place] 100 Family Medicine 112 [facility] 100 [place] [address] Homero Mckeon MD [address] [address] (Fax) 09/14/2025 11:30 AM EST Office Visit [facility] [place] [facility] [address] [facility] [place] [place] [address] Homero Mckeon MD 112 [facility] 100 [place] [address] documented as of this encounter Visit Diagnoses Not on filedocumented in this encounter Care Teams Senior Research Consultant Relationship Specialty Start Date End Date Homero Mckeon MD 112 [facility] 100 [place] [address] PCP - Devoted 09/30/20 Homero Mckeon MD 112 [facility] [place] [address] PCP - General Family Medicine 02/11/23 documented as of this encounter
--- OUTSIDE RECORDS SUMMARY | 2025-04-30 23:28 | XMS_ITS | Encounter Summary ---
Author Organization [facility] Address [address] [place] [address] Care Team Providers Care Brand Specialist Name Role Phone Homero Moses MD Unavailable [phone] Homero Moses MD Primary Care Provider + [phone] Encounter Details Date Type Department Care Team [...] Visit [facility] [place] [address] Family Medicine [address] [address] Homero Moses MD 112 [facility] 100 [place] [address] (Fax) 09/14/2025 11:30 AM EST Office Visit [facility] [place] [address] Family Medicine [address] [place] [address] [place] [address] Homero Moses MD 112 [facility] 100 [place] [address] documented as of this encounter Procedures Procedure Name Priority Date/Time Associated Diagnosis Comments MRI HEAD/BRAIN WO/W CONTR 07/08/2023 8:19 PM EDT documented in this encounter Results * MRI HEAD/BRAIN WO/W CONTR (07/08/2023 8:19 PM EDT) Anatomical Region Laterality Modality Radiographic Sandra ging 07/08/2023 8:19 PM EDT Narrative 07/08/2023 8:19 [place] [address] Magnetic Resonance Report Signed Patient: GARY HAYNES MR#: [id number] : 1940 Acct:[id number] Age/Sex: 82 / F ADM Date: 07/08/23 Loc: LAB Attending Dr: NICHOLE FLAHERTY Ordering Physician: NICHOLE FLAHERTY Date of Service: 07/08/23 Procedure(s): MR head/brain wo/w con Accession Number(s): [id number] cc: NICHOLE FLAHERTY ; HOMERO MOSES [address] [address] Patient Name: GARY HAYNES MRN: [id number] date: 1940 Sex: F Assigned Patient Location: LAB Current Patient Location: LAB Accession/Order Number: [id number] Exam Date: 07/08/2023 13:48 Report Date: 07/08/2023 [...] M.D. Signed By: 07/08/232020 DD/ 18 TD/TT: Associate Professor Computer Science: Procedure Note Radiology, Radiologist, MD - 07/10/2023 [place] [address] Magnetic Resonance Report Signed Patient: GARY HAYNES KMR#: [id number] : 1940cct:[id number] Age/Sex: 82 / FADM Date: 07/08/23 Loc: LAB Attending Dr: NICHOLE FLAHERTY Ordering Physician: NICHOLE FLAHERTY Date of Service: 07/08/23 Procedure(s): MR head/brain wo/w con Accession Number(s): [id number] cc: NICHOLE FLAHERTY ; HOMERO MOSES [place] [id number] Patient Name: GARY HAYNES MRN: [id number] date: 1940 Sex: F Assigned Patient Location: LAB Current Patient Location: LAB Accession/Order Number: [id number] Exam Date: 07/08/2023 13:48 Report Date: 07/08/2023 [...] hardware at the partially visualized C3 and [id number]. The orbits and globes are unremarkable. There [...] Zuniga M.D. Signed By:07/08/232020 DD/ 18 TD/TT: Associate Professor Computer Science: us Generic External Data Provider IMG XR PROCEDURES Final Result documented in this encounter Visit Diagnoses Not on filedocumented in this encounter Care Teams Brand Specialist Relationship Specialty Start Date End Date Homero Moses MD [address] [address] PCP - Devoted 09/30/20 Homero Moses MD [address] [address] PCP - General Family Medicine 02/11/23 documented as of this encounter
--- OUTSIDE RECORDS SUMMARY | 2025-04-30 23:29 | XMS_ITS | Encounter Summary ---
Author Organization [facility] Address [address] [place] [address] Care Team Providers Care Set And Exhibit Designer Name Role Phone Homero Mckeon MD Unavailable [phone] Homero Mckeon MD Primary Care Provider + [phone] Encounter Details Date Type Department Care Team (Latest Contact Info) Description 04/28/2025 Travel Social History Tobacco Use Types Packs/Day [...] often do you attend chur ch or gnosticist services? More than 4 times per year [...] were you homeless or living in a [facility] (including now)? No 05/01/2024 Comments No Sex [...] Medicine [address] [place] [address] [place] [address] Homero Mckeon MD [address] [place] [address] (Fax) 09/14/2025 11:30 AM EST Office Visit [facility] [place] 100 Family Medicine [address] [place] [address] [place] [address] Homero Mckeon MD [address] [place] [address] (Fax) documented as of this encounter Goals Goal Patient Goal Type Associated Problems Recent Progress Patient-Stated? Author Help patient manage antidepressant medication Care Plan Patient on antidepressant monitoring plan No Kellen Martinez MA Baseline PHQ-9 Care Plan Baseline PHQ-9 No Kellen Martinez MA documented as of this encounter Visit Diagnoses Not on filedocumented in this encounter Additional Health Concerns Active Problems Noted Date Diagnosed Date Patient on antidepressant monitoring plan 2023 Baseline PHQ-9 02/03/2024 documented as of this encounter Care Teams Set And Exhibit Designer Relationship Specialty Start Date End Date Homero cMkeon MD [address] [place] [address] (Fax) PCP - Devoted 09/30/20 Homero Mckeon MD [address] [place] [address] PCP - General Family Medicine 02/11/23 documented as of this encounter
--- OUTSIDE RECORDS SUMMARY | 2025-04-30 23:29 | XMS_ITS | Clinical Summary ---
Author Organization [facility] Address [address] [place] [address] Care Team Providers Care Spanish Interpreter Name Role Phone Homero Mckeon MD Unavailable [phone] Homero Mckeon MD Primary Care Provider [phone] Allergies Active Allergy Reactions Criticality Noted Date [...] Unknown Wheat 03/04/2023 Other Reaction(s): Unknown Medications Fexofenadine-Pseu doephedrine (CARMELLA-D 24 HOUR PO) Take 1 tablet by mouth 1 (one) time each day at the same time. Active aspirin 81 MG EC tablet Take 81 mg by mouth in the morning. Active meclizine (Antivert) 25 MG tabletIndications :Vertigo Take 0.5-2 tablets as needed for vertigo 60 tablet 03/04/20 23 Active cholecalciferol (Vitamin D-3) 25 MCG (1000 UT) capsule Take 1,000 Units by mouth in the morning. Active CALCIUM CITRATE PO Take 1 tablet by mouth in the morning. Active multivitamin (Theragran) tablet Take 2 tablets by mouth in the morning. Active albuterol (2.5 MG/3ML) 0.083% nebulizer solutionIndicatio ns:COVID-19 Take 3 mL (2.5 mg) by nebulization every 6 (six) hours if needed for wheezing 75 mL 06/23/20 24 025 Active Nebulizers (Compressor/Nebul izer) miscIndications:C OVID-19 Use 4 times per day and PRN SOB/wheezing 1 each 06/23/20 24 Active gabapentin (Neurontin) 300 MG capsuleIndication s:Lumbosacral radiculopathy due to degenerative joint disease of spine Take 1 capsule (300 mg) by mouth in the morning and 1 capsule (300 mg) before bedtime. 60 capsule 2 10/06/19 25 Active gabapentin (Neurontin) 100 MG capsuleIndication s:Lumbosacral radiculopathy due to degenerative joint disease of spine For severe pain, take an additional 1 tablet in the evening as needed 30 capsule 2 10/06/19 25 Active ipratropium (Atrovent) 0.06 % nasal spray Administer 2 sprays into each nostril Active albuterol HFA 90 mcg/act inhaler Inhale 2 puffs Daily as needed for wheezing 11/27/19 25 Active Spacer/Aero-Holdi ng Chambers (Pro Comfort Spacer Adult) miscIndications:W alking pneumonia Use with HFA spacer. May substitute with any brand. 1 each 12/03/19 25 Active losartan (Cozaar) 50 MG tabletIndications :Primary hypertension Take 1 tablet (50 mg) by mouth Daily 90 tablet 1 02/04/20 25 025 Active verapamil SR (Calan SR) 240 MG ER tabletIndications :Primary hypertension Take 1 tablet (240 mg) by mouth Daily 90 tablet 1 02/04/20 25 Active liothyronine (Cytomel) 5 MCG tabletIndications :Euthyroid sick syndrome Take 1.5 tablets (7.5 mcg) by mouth in the morning and 1.5 tablets (7.5 mcg) in the evening. Take before meals. Greenstone or sigma brand only. 90 tablet 03/10/20 25 Active buPROPion SR (Wellbutrin SR) 100 MG 12 hr tabletIndications :Recurrent major depressive disorder, in partial remission Take 1 tablet (100 mg) by mouth in the morning. Take before meals. Do not crush, chew, or split. 90 tablet 1 03/24/20 25 025 Active donepezil (Aricept) 10 MG tabletIndications :Alzheimer's disease with late onset (CODE) (HCC) Take 1 tablet (10 mg) by mouth at bedtime 90 tablet 1 03/24/20 25 025 Active levothyroxine (Synthroid, Levoxyl) 75 MCG tabletIndications :Acquired central hypothyroidism Take 0.5 tablets (37.5 mcg) by mouth in the morning. Take before meals. 45 tablet 03/24/20 25 025 Active traZODone (Desyrel) 100 MG tabletIndications :Sleep initiation disorder Take 1 tablet (100 mg) by mouth at bedtime Keep on file as refill 30 tablet 03/24/20 25 025 Active liothyronine (Cytomel) 5 MCG tabletIndications :Euthyroid sick syndrome Take 2 tablet in AM and 1.5 tablet in PM on an empty stomach. AVERY; Povio or playnik brands only 315 tablet 03/24/20 Active memantine (Namenda) 5 MG tabletIndications :Cerebral atrophy Take 1 tablet (5 mg) by mouth in the morning and 1 tablet (5 mg) before bedtime. 180 tablet 04/14/20 026 Active polyethylene glycol, PEG, 3350 (Glycolax) 17 GM/SCOOP powder Take 17 g by mouth Daily Active omeprazole (PriLOSEC) [address] capsuleIndication s:Gastroesophagea l reflux disease without esophagitis Take 1 capsule (40 mg) by mouth in the morning. Take before meals. 04/28/20 25 026 Active PARoxetine (Paxil) 20 MG tabletIndications :Recurrent major depressive disorder, in partial remission Take 1 tablet (20 mg) by mouth in the evening 90 tablet 1 04/28/20 25 026 Active memantine (Namenda) 5 MG tabletIndications :Cerebral atrophy Take 1 tablet (5 mg) by mouth in the morning and 1 tablet (5 mg) before bedtime. 180 tablet 10/22/19 25 025 Discontinu ed(Reorder ) omeprazole (PriLOSEC) [address] capsuleIndication s:Gastroesophagea l reflux disease without esophagitis Take 1 capsule (40 mg) by mouth in the morning and 1 capsule (40 mg) in the evening. Take before meals. 180 capsule 1 02/04/20 25 025 Discontinu ed(Reorder ) clotrimazole-beta methasone (Lotrisone) creamIndications: Dermatitis Apply topically in the morning and before bedtime. 30 g 03/24/20 25 025 PARoxetine (Paxil) 20 MG tabletIndications :Recurrent major depressive disorder, in partial remission Take 1 tablet (20 mg) by mouth in the morning. 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); Overweight; Gastroesophageal reflux disease without esophagitis; Abdominal pain, unspecified abdominal location; Diarrhea, unspecified type; Arthralgia, unspecified joint 04/28/2025 Results [place] [facility] [place] [address] [place] [address] Homero Mckeon MD 04/28/2025 Clinisync Result Encounter [facility] External Department Unsolicited Homero Mckeon MD 04/28/2025 Bamboo flowsheet [facility] [place] [address] [place] [address] Homero Mckeon MD 04/28/2025 Travel 04/26/2025 Results Follow-Up [facility] [place] [address] [place] [address] Homero Mckeon MD 04/22/2025 Clinisync Result Encounter [facility] External Department Unsolicited Homero Mckeon MD 04/14/2025 Orders Only [facility] [place] 100 [facility] [address] [place] [address] 100 [place] [address] MichelleKellen, AMAYA Cerebral atrophy 04/14/2025 Refill [facility] [place] [address] [place] [address] Homero Mckeon MD Cerebral atrophy 04/13/2025 12:00 PM EDT Ancillary Procedure [facility] [address] [facility] [address] [place] [address] Full incontinence of feces 04/13/2025 Telephone [facility] [place] [address] [place] [address] Homero Mckeon MD Results 04/13/2025 Results Follow-Up [facility] [place] [address] [place] [address] Homero Mckeon MD 04/13/2025 Travel 04/12/2025 Telephone [facility] [place] [address] [place] [address] Homero Mckeon MD 04/07/2025 Telephone [facility] [place] [address] [place] [address] Nivia Perkins, cattle sorter Question 03/24/2025 11:30 AM EDT Office Visit [facility] [place] [address] [place] [address] Homero Mckeon MD Euthyroid sick syndrome (Primary Dx); Acquired central hypothyroidism ; Chronic fatigue; Recurrent major depressive disorder, in partial remission ; Alzheimer's disease with late onset (CODE) (HCC); Dermatitis; Sleep initiation disorder 03/24/2025 Bamboo flowsheet [facility] [place] [address] [place] [address] Homero Mckeon MD 03/24/2025 Travel 03/21/2025 Results Follow-Up [facility] [place] [address] [place] [address] Homero Mckeon MD 03/15/2025 2:30 PM EDT Office Visit [facility] [place] 100 Family Medicine 112 [facility] 100 [place] [address] Homero Mckeon MD Dermatitis (Primary Dx); Non-seasonal allergic rhinitis due to other allergic trigger 03/15/2025 Bamboo flowsheet [facility] [place] 100 Family Medicine 112 [facility] 100 [place] [address] Homero Mckeon MD 03/15/2025 Travel 03/10/2025 Telephone [facility] [place] 100 Family Medicine 112 [facility] 100 [place] [address] Michelle Tolono, MA 03/01/2025 Telephone [facility] [place] 100 Family Medicine 112 [facility] 100 [place] [address] Michelle Tolono, MA Lab Orders 02/25/2025 Telephone [facility] [place] 100 Family Medicine 112 [facility] 100 [place] [address] Homero Mckeon MD 02/16/2025 Orders Only [facility] [place] 100 Family Medicine 112 [facility] 100 [place] [address] Michelle Tolono, MA Acquired central hypothyroidism 02/15/2025 Telephone [facility] [place] 100 Family Medicine 112 [facility] 100 [place] [address] Michelle Tolono, MA Care Coordination 02/03/2025 9:30 AM EDT Office Visit [facility] [place] 100 Family Medicine 112 [facility] 100 [place] [address] Homero Mckeon MD Primary hypertension ; Mixed dyslipidemia ; Myalgia due to statin; Gastroesophageal reflux disease without esophagitis 02/03/2025 Bamboo flowsheet [facility] [place] 100 Family Medicine 112 [facility] 100 [place] [address] Homero Mckeon MD 02/03/2025 Travel 01/29/2025 Clinisync Result Encounter [facility] External Department Unsolicited Homero Mckeon MD 01/28/2025 Orders Only [facility] [place] [address] [address] [place] [address] Michelle, December, Euthyroid sick syndrome; Sleep initiation disorder from Last 3 Months Immunizations Immunization Administration [...] often do you attend chur ch or uatsdin services? More than 4 times per year [...] any time in the past 12 [facility], were you homeless or living in [...] Visit [facility] [place] 100 Family Medicine [address] [address] Homero Mckeon MD [address] [address] 09/14/2025 11:30 AM EST Office Visit [facility] [place] 100 Family [facility] [address] [address] Homero Mckeon MD [address] [address] Health Maintenance Due Date Last Done Comments Influenza Vaccine (#1) 2025 2, 08/18/2021, 07/04/2020, Additional history exists Pneumococcal Vaccine: 65+ Years (2 of 2 - PCV) 03/24/2026 07/25/2015 Postponed from 07/25/2016 (Patient Refused) Goals Goal Patient Goal Type Associated Problems Recent Progress Patient-Stated? Author Help patient manage antidepressant medication Care Plan Patient on antidepressant monitoring plan No YeakleDecember, Baseline PHQ-9 Care Plan Baseline PHQ-9 No MichelleDecember, Procedures Procedure Name Priority Date/Time Associated Diagnosis Comments ALL SED RATE Routine 04/28/2025 4:14 PM EDT ALL CBC WITH AUTO DIFF Routine 04/28/2025 4:14 PM EDT CAMPYLOBACTER CULTURE Routine 04/22/2025 4:15 PM EDT SALMONELLA/SHIGELLA SCREEN Routine 04/22/2025 4:15 PM EDT E COLI SHIGA TOXIN EIA Routine 04/22/2025 4:15 PM EDT C. DIFFICILE PCR Routine 04/22/2025 4:15 PM EDT XR ABDOMEN 2 VIEW Routine 04/13/2025 12: [...] AM EDT [facility] CMP (CMP) (FOR REMOTE [facility] USE) Routine 01/29/2025 11:19 AM EDT from Last 3 Months Results * ALL SED RATE (04/28/2025 4:14 PM EDT) Pathologist [facility] SED RATE 16 <=30 mm/hr TB 04/28/2025 4:14 PM EDT 04/28/2025 4:15 PM EDT Narrative CLINISYNC - 04/28/2025 4:23 PM EDT Homero Mckeon MD CLINISYNC Final Result CLINISYNC [facility] * (ABNORMAL) ALL CBC WITH AUTO DIFF (04/28/2025 4:14 PM EDT) [facility] WBC 5.9 4.0 - 11.0 10 3/uL TBH TBH RBC 3.94(L) 4.20 - 5.40 10 6/uL TBH TBH HGB 12.6 12.0 - 16.0 g/dL TB TB HCT 37.2 36.0 - 48.0 % TBH TB MCV 94.4 81.0 - 99.0 fL TBH TB MCH 32.0 26.7 - 34.0 pg TBH TB MCHC 33.9 29.9 - 35.2 g/dL TB TB RDW 13.1 11.0 - 15.0 % TBH TBH PLT 212 150 - 450 10 3/uL TBH TBH MPV 9.7 9.5 - 13.5 fL TBH NEUTROPHILS PERCENT AUTO 48.3 43.0 - 75.0 % TBH LYMPHOCYTES PERCENT AUTO 40.8 20.5 - 60.0 % TBH MONOCYTES PERCENT AUTO 7.4 1.7 - 12.0 % TBH TBH EO % 3.0 0.9 - 7.0 % TBH BASOPHILS PERCENT AUTO 0.3 0.2 - 2.0 % TBH IMMATURE GRANULOCYTES PCT AUTO 0.2 0.0 - 0.5 % TBH NEUTROPHILS ABSOLUTE AUTO 2.9 1.4 - 6.5 10 3/uL TBH LYMPHOCYTES ABSOLUTE AUTO 2.4 1.2 - 3.8 10 3/uL TBH MONOCYTES ABSOLUTE AUTO 0.4 0.3 - 0.8 10 3/uL TBH TBH EO # 0.2 0.0 - 0.7 10 3/uL TBH BASOPHILS ABSOLUTE AUTO 0.0 0.0 - 0.1 10 3/uL TBH IMMATURE GRANULOCYTES ABS AUTO 0.01 0.00 - 0.03 10 3/uL TBH 04/28/2025 4:14 PM EDT 04/28/2025 4:15 PM EDT Narrative CLINISYNC - 04/28/2025 4:18 PM EDT Homero Mckeon MD CLINISYMI Final Result Performing Organization Address [facility] de Phone Number [facility] * C. DIFFICILE PCR (04/22/2025 4:15 PM EDT) C. DIFFICILE PCR INCONCLUSIVE TB 04/22/2025 4:15 PM EDT 04/22/2025 5:00 PM EDT Narrative CLINISYNC - 04/22/2025 7:46 PM EDT Homero Mckeon MD LAB BLOOD ORDERABLES Edited Result - Final Performing Organization Address [facility] de Phone Number [facility] * CAMPYLOBACTER CULTURE (04/22/2025 4:15 PM EDT) CAMPYLOBACTER CULTURE Campylobacter Culture No Campylobacter species isolated. [facility] 04/22/2025 4:15 PM EDT 04/22/2025 5:00 PM EDT Narrative CLINISYNC - 04/27/2025 5:12 PM EDT Homero Mckeon MD LAB BLOOD ORDERABLES Final R esult Performing Organization Address [facility] de Phone Number [facility] * SALMONELLA/SHIGELLA SCREEN (04/22/2025 4:15 PM EDT) SALMONELLA/SH IGELLA SCREEN Salmonella/Crystal gella Screen TB SALMONELLA/SH IGELLA SCREEN No Salmonella or Shigella recovered. TB 04/22/2025 4:15 PM EDT 04/22/2025 5:00 PM EDT Narrative CLINISYNC - 04/27/2025 5:12 PM EDT Homero Mckeon MD LAB BLOOD ORDERABLES Final R esult CLINISYNC [facility] * E COLI SHIGA TOXIN EIA (04/22/2025 4:15 PM EDT) E COLI SHIGA TOXIN EIA E coli Shiga Toxin EIA [facility] E COLI SHIGA TOXIN EIA Negative [facility] E COLI SHIGA TOXIN EIA [facility]formed at: - [facility] E COLI SHIGA TOXIN EIA [address], [place] [id number] [facility] E COLI SHIGA TOXIN EIA Nutrient Management Specialist: Devin Pichardo PhD, Phone: [phone] [facility] 04/22/2025 4:15 PM EDT 04/22/2025 5:00 PM EDT Narrative CLINISYNC - 04/27/2025 5:12 PM EDT Homero Mckeon MD LAB BLOOD ORDERABLES Final R esult Performing Organization Address [facility] Co de Phone Number CLINISYMI TB * XR ABDOMEN 2 VIEW (04/13/2025 12:01 [...] analytical performance characteristics have been determined by [employer] [employer] [place], [place]. It has not been cleared or approved by the U.S. Food and Drug Administration. This assay has been validated pursuant to the CLIA regulations and is used for clinical purposes. Blood Venous blood specimen / Unknown 03/16/2025 1:48 PM EDT 03/16/2025 1:49 PM EDT Narrative Resulting Agency Comment Performing Organization Information Site ID: AMD Name: [facility] Address: [address] [place] [address] [place] [address] Director: Aldair Johansen M.D.,PhD Homero Mckeon MD LAB BLOOD ORDERABLES Final R esult [facility] * T3, free (03/16/2025 1:48 PM EDT) T3, FREE 3.3 2.3 - 4.2 pg/mL [facility] Blood Venous blood specimen / Unknown 03/16/2025 1:48 PM EDT 03/16/2025 1:49 PM EDT Narrative Resulting Agency Comment Performing Organization Information Site ID: QPT Name: [facility] Address: [address] [place] [address], [address] [place] [phone] Director: Eliezer Cates MD Homero Mckeon MD LAB BLOOD ORDERABLES Final R esult Performing Organization Address [facility] de Phone Number [facility] * T3 (03/16/2025 1:48 PM EDT) T3, TOTAL 106 76 - 181 ng/dL [facility] Blood Venous blood specimen / Unknown 03/16/2025 1:48 PM EDT 03/16/2025 1:49 PM EDT Narrative Resulting Agency Comment Performing Organization Information Site ID: QPT Name: [facility] Address: [address] [place] [address], [address] [place] [address] Director: Eliezer Cates MD Homero Mckeon MD LAB BLOOD ORDERABLES Final R esult Performing Organization Address [facility] de Phone Number [facility] * TSH (03/16/2025 1:48 PM EDT) TSH 0.54 0.40 - 4.50 mIU/L [facility] Blood Venous blood specimen / Unknown 03/16/2025 1:48 PM EDT 03/16/2025 1:49 PM EDT Narrative Resulting Agency Comment Performing Organization Information Site ID: QPT Name: [facility] Address: [address] [place] [address], [address] [place] [phone] Director: Eliezer Cates MD Homero Mckeon MD LAB BLOOD ORDERABLES Final R esult Performing Organization Address [facility] de Phone Number [facility] * T4, free (03/16/2025 1:48 PM EDT) T4, FREE 1.1 0.8 - 1.8 ng/dL [facility] Blood Venous blood specimen / Unknown 03/16/2025 1:48 PM EDT 03/16/2025 1:49 PM EDT Narrative Resulting Agency Comment Performing Organization Information Site ID: QPT Name: [facility] Address: [address] , [address] [place] [address] Director: Eliezer Cates MD Homero Mckeon MD LAB BLOOD ORDERABLES Final R esult [facility] * (ABNORMAL) [facility] CMP (CMP) (FOR REMOTE [facility] USE) (01/29/2025 11:19 AM EDT) SODIUM 142 136 - 145 mmol/L TBH POTASSIUM 4.6 3.5 - 5.1 mmol/L TBH CHLORIDE 105 98 - 107 mmol/L TBH CARBON DIOXIDE 32.1(H) 21.0 - 32.0 mmol/L TBH ANION GAP 9.5 TBH GLUCOSE 93 74 - 106 mg/dL TBH BLOOD UREA NITROGEN 22.0(H) 7.0 - 18.0 mg/dL TBH CREATININE 0.85 0.55 - 1.02 mg/dL TBH TBH EGFR-AF INDIAN >60 >=60 mL/min/1. 73m 2 TBH TBH EGFR-NON AF INDIAN >60 >=60 mL/min/1. 73m 2 TBH BUN [...] EDT Homero Mckeon MD CLINISYNC Final Result Performing Organization Address [facility] Co de Phone Number [facility]NC [facility] * (ABNORMAL) ALL LIPID PROFILE (FASTING) (01/29/2025 11:19 AM EDT) TRIGLYCERIDES 56 <=150 mg/dL TBH CHOLESTEROL 324(H) <=200 mg/dL TBH HDL CHOLESTEROL 101(H) 40 - 60 mg/dL TBH Comment: > or =60 mg/dl - LOW CARDIOVASCULAR RISK <40 mg/dl - HIGH CARDIOVASCULAR RISK LDL CHOLESTEROL CALCULATED 212.0 mg/dL TBH Comment: <100 mg/dl OPTIMAL 100-129 mg/dl NEAR [...] CLINISYNC - 01/29/2025 12:06 PM EDT Homero CLARK Final Result Performing Organization Address [facility] Co de Phone Number CLINISYNC TBH from Last 3 Months Additional Health Concerns Active Problems Noted Date Diagnosed Date Patient on antidepressant monitoring plan 2023 Baseline PHQ-9 02/03/2024 Insurance [employer] Advance Directives Documents on File Type Date Recorded Patient Knitted Cloth Examiner Expl anation Advance Directives and Living Will 05/25/2019 1990-08-27 Power of Director [employer] Care Teams Spanish Interpreter Relationship Specialty Start Date End Date Homero Mckeon MD [address] [place] [address] PCP - Devoted 09/30/20 Homero Mckeon MD [address] [place] [address] PCP - General Family Medicine 02/11/23
--- OUTSIDE RECORDS SUMMARY | 2025-04-30 23:29 | XMS_ITS | Encounter Summary ---
Author Organization [facility] Address [address] [place] [address] Care Team Providers Care Sterilization Specialist Name Role Phone Homero Mckeon MD Unavailable [phone] Homero Mckeon MD Primary Care Provider [phone] Reason for Visit * Reason Onset Date Comments Results 04/28/2025 Encounter Details Date Type Department Care Team (Late st Contact Info) Description 04/28/2025 Results Follow-Up [facility] [place] [facility] Family Medicine 112 [facility] 100 [place] [address] Homero Mckeon MD 112 [facility] 100 [place] [address] (Fax) Social History Tobacco Use Types Packs/Day [...] often do you attend chur ch or judaism services? More than 4 times per year [...] any time in the past 12 m [facility], were you homeless or [...] Martinez MA documented as of this encounter Miscellaneous Notes * Telephone Encounter - Kellen Martinez MA - 04/29/2025 11:42 AM EDT VM left for pt with results and information needed * Telephone Encounter - Kellen Martinez MA - 04/29/2025 11:42 AM EDT ----- Message from Homero Mckeon MD sent at 04/28/2025 4:54 PM EDT ----- * Telephone Encounter - Homero Mckeon MD - 04/28/2025 4:52 PM EDT Notify her that her CBC and sedimentation rate are normal. She is supposed to let us know how much melatonin she has in her gummies at home I would like her to be taking 5-10 mg at night. She is then to contact the office Saturday and give you an update her suprapubic belly pain and diarrhea /incontinence of stool is improved. If not we will order a CT scan of the abdomen and pelvis with the oral contrast but no IV contrast. documented in this encounter Plan of Treatment Upcoming Encounters Date Type Department Care Team (Late st Contact Info) Description 07/28/2025 11:30 AM EDT Office Visit [facility] [place] [facility] 112 [facility] [place] [address] Homero Mckeon MD 112 [place] [address] (Fax) 09/14/2025 11:30 AM EST Office Visit [facility] [place] 100 Family Medicine 112 [facility] [address] [place] [address] Homero Mckeon MD 112 [place] [address] (Fax) documented as of this encounter Goals Goal Patient Goal Type Associated Problems Recent Progress Patient-Stated? Author Help patient manage antidepressant medication Care Plan Patient on antidepressant monitoring plan No Michelle Kellen, [place] Baseline PHQ-9 Care Plan Baseline PHQ-9 No Michelle [place], [place] documented as of this encounter Visit Diagnoses Not on filedocumented in this encounter Additional Health Concerns Active Problems Noted Date Diagnosed Date Patient on antidepressant monitoring plan 2023 Baseline PHQ-9 02/03/2024 documented as of this encounter Care Teams Sterilization Specialist Relationship Specialty Start Date End Date Homero Mckeon MD 112 [facility] [place] [address] PCP - Devoted 09/30/20 Homero Mckeon MD 112 [facility] [place] [address] (Fax) PCP - General Family Medicine 02/11/23 documented as of this encounter
--- OUTSIDE RECORDS SUMMARY | 2025-04-30 23:29 | XMS_ITS ---
Author Organization [facility] Address [address] [place] [address] Care Team Providers Care Child Watch Attendant Name Role Phone Homero Mckeon MD Primary Care Provider Shadia Barrera OD Unavailable [phone] Active Problems Problem Noted Date Diagnosed Date [...] GREATER THAN 30 ML/MIN 1 07/13/2021 zoledronic gc-krvelyfn-4. 9NaCl (ZOMETA)zoledr onic acid (ZOMETA) Not Tolerated [...] Surgical procedure/findings: Partial mastectomy Lymph node removal: [place] biopsy Radiation: Yes Body area treated: Right [...] Test How Often Oncology Team Mammogram Annually BUNDLER or PCP Pap/pelvic exam As indicated by [...] (loss/gain) Resources you may be interested in: [employer] Worker [phone] Living with Cancer Support Group, First Saturday of the month at [facility] 11:30am-12:30pm [place] [facility] (Breast Cancer Support Group) Fourth Saturday of the at [facility] 4-5pm Prepared by: RANDA GALEAS PA-C Delivered [...]
--- OUTSIDE RECORDS SUMMARY | 2025-04-30 23:29 | XMS_ITS | Encounter Summary ---
Author Organization [facility] Address [address] [place] [address] Care Team Providers Care Terrazzo Mechanic Name Role Phone Homero Mckeon MD Unavailable [phone] Homero Mckeon MD Primary Care Provider + [phone] Encounter Details Date Type Department Care Team (Late st Contact Info) Description 04/28/2025 Clinisync Result Encounter [facility] External Department Unsolicited Homero Mckeon MD 112 [facility] [address] [place] [address] (Fax) Social History Tobacco Use Types Packs/Day [...] often do you attend chur ch or protestant services? More than 4 times per year [...] any time in the past 12 m [facility], were you homeless or [...] 07/28/2025 11:30 AM EDT Office Visit [facility] [address] [address] Homero Mckeon MD [address] [address] 09/14/2025 11:30 AM EST Office Visit [facility] [address] [address] Homero Mckeon MD [address] [address] documented as of this encounter Goals Goal Patient Goal Type Associated Problems Recent Progress Patient-Stated? Author Help patient manage antidepressant medication Care Plan Patient on antidepressant monitoring plan No Kellen Martinez MA Baseline PHQ-9 Care Plan Baseline PHQ-9 No Kellen Martinez MA documented as of this encounter Procedures Procedure Name Priority Date/Time Associated Diagnosis Comments ALL SED RATE Routine 04/28/2025 4:14 PM EDT ALL CBC WITH AUTO DIFF Routine 04/28/2025 4:14 PM EDT documented in this encounter Results * ALL SED RATE (04/28/2025 4:14 PM EDT) Pathologist [facility] SED RATE 16 <=30 mm/hr [facility] 04/28/2025 4:14 PM EDT 04/28/2025 4:15 PM EDT Narrative CLINISYNC - 04/28/2025 4:23 PM EDT Homero Mckeon MD CLINIS[facility] Final Result [facility] TB * (ABNORMAL) ALL CBC WITH AUTO DIFF (04/28/2025 4:14 PM EDT) TB WBC 5.9 4.0 - 11.0 10 3/uL TBH TBH RBC 3.94(L) 4.20 - 5.40 10 6/uL TBH TBH HGB 12.6 12.0 - 16.0 g/dL TBH TBH HCT 37.2 36.0 - 48.0 % TBH TBH MCV 94.4 81.0 - 99.0 fL TBH TBH MCH 32.0 26.7 - 34.0 pg TBH TBH MCHC 33.9 29.9 - 35.2 g/dL TBH TBH RDW 13.1 11.0 - 15.0 % TBH [...] 04/28/2025 4:18 PM EDT Homero Mckeon MD CLIN[facility] documented in this encounter Visit Diagnoses Not on filedocumented in this encounter Additional Health Concerns Active Problems Noted Date Diagnosed Date Patient on antidepressant monitoring plan 2023 Baseline PHQ-9 02/03/2024 documented as of this encounter Care Teams Terrazzo Mechanic Relationship Specialty Start Date End Date Homero Mckeon MD [address] [address] PCP - Devoted 09/30/20 Homero Mckeon MD [address] [place] [address] [address] PCP - General Family Medicine 02/11/23 documented as of this encounter
--- OUTSIDE RECORDS SUMMARY | 2025-04-30 23:29 | XMS_ITS | Clinical Summary ---
Author Organization [facility] Address [address] [place] [address] Care Team Providers Care Composition Molder Name Role Phone Homero Mckeon MD Primary Care Provider Shadia Barrera OD Unavailable [phone] Allergies Active Allergy Reactions Criticality Noted Date [...] once daily. Active calcium carbonate/vitami n D2 ([id number] ORAL) Take by mouth. Active Magnesium 250 [...] THREE TIMES WEEKLY 1 Active thyroid, pork, (IS MANAGER THYROID) 60 mg IS MANAGER Thyroid 60 mg tablet TAKE 1 TABLET [...] DAILY TOLERATING SIDE EFFECTS 1 Active STRONTIUM [id number] -FA ORAL Take by mouth. Activ e [...] original vaccine, a ge 12+ yr, monovalent (Cyphort - PURPLE TOP) 02/28/2021,02/06/2021 COVID-19 original vaccine, [...] N ot on file 10/26/2022 Data from: [email or web address] Last address used for calculation [address] 10/26/2022 Comments No Sex and Gender [...] Vaccine (1 - 1-dose 75+ series) 2016 Advance Directive Discussion 09/30/2024 Diabetes Screening 01/11/2025 [...] - 8.0 g/dL 01/11/2022 12:36 PM EDT [facility] Albumin 4.4 3.9 - 4.9 g/dL 01/11/2022 12:36 PM EDT [facility] Calcium, Total 9.8 8.5 - 10.2 mg/dL 01/11/2022 12:36 PM EDT [facility] Bilirubin, Total 0.3 0.2 - 1.3 mg/dL 01/11/2022 12:36 PM EDT [facility] Alkaline Phosphatase 61 34 - 123 U/L 01/11/2022 12:36 PM EDT [facility] AST 14 13 - 35 U/L 01/11/2022 12:36 PM EDT [facility] ALT 12 7 - 38 U/L 01/11/2022 12:36 PM EDT [facility] Glucose 97 74 - 99 mg/dL 01/11/2022 12:36 PM EDT [facility] Comment: The [place] Diabetes Association (ADA) provides guidance for cutoff [...] Standards of Medical Care in Diabetes 2016, [place] Diabetes Association. Diabetes Care. 2016.39(Suppl 1). BUN 25(H) 7 - 21 mg/dL 01/11/2022 12:36 PM [facility] Creatinine 0.93 0.58 - 0.96 mg/dL 01/11/2022 12:36 PM [facility] Sodium 136 136 - 144 mmol/L 01/11/2022 12:36 PM [facility] Potassium 4.1 3.7 - 5.1 mmol/L 01/11/2022 12:36 PM [facility] Chloride 103 97 - 105 mmol/L 01/11/2022 12:36 PM [facility] CO2 27 22 - 30 mmol/L 01/11/2022 12:36 PM [facility] Anion Gap 6(L) 9 - 18 mmol/L 01/11/2022 12:36 PM [facility] Estimated Glomerular Filtration Rate 62 >=60 mL/min/1.7 3m 01/11/2022 12:36 PM [facility] Comment:Estimated Glomerular Filtration Rate (eGFR) is [...] 12:04 PM EDT 01/11/2022 12:04 PM EDT Pranav Cuellar MD LABORATORY Final Result [facility] [address] [facility] [place] [address] from Last 3 Months or Most Recently Relevant to Health Maintenance Insurance [facility] * Guarantor: Haynes Yanet Account Type Relation to Patient Date of Phone Billing Address Self Pay Self 1940 [id number] [place] [address] Care Teams Composition Molder Relationship Specialty Start Date End Date Homero Mckeon MD [address] [facility] [place] [address] PCP - General Family Medicine 05/09/15 Shadia Barrera OD [address] [place] [address] Referring Optometry 04/10/21
--- OUTSIDE RECORDS SUMMARY | 2025-04-30 23:29 | XMS_ITS | Encounter Summary ---
Author Organization [facility] Address [address] [place] [address] Care Team Providers Care Oracle Consultant Name Role Phone Homero Mckeon MD Unavailable [phone] Homero Mckeon MD Primary Care Provider + [phone] Reason for Visit * Reason Onset Date Comments Care Coordination 04/26/2025 Encounter Details Date Type Department Care Team (Late st Contact Info) Description 04/26/2025 Results Follow-Up [facility] [place] [address] Family Medicine 112 [facility] 100 [place] [address] Homero Mckeon MD 112 [facility] 100 [place] [address] (Fax) Social History Tobacco Use Types Packs/Day [...] often do you attend chur ch or confucianism services? More than 4 times per year [...] any time in the past 12 m [facility], were you homeless or living in a prison (including now)? No 05/01/2024 Comments No Sex and Gender Information Value Date Recorded Sex Assigned at Not on file Legal Sex Female 8:34 PM EDT Gender Identity Not on file Sexual Orientation Not on file documented as of this encounter Miscellaneous Notes * Telephone Encounter - Kellen Martinez MA - 04/26/2025 1:45 PM EDT Patient was notified and verbalized understanding. He/She knows to contact office with any further questions. * Telephone Encounter - Kellen Martinez MA - 04/26/2025 1:45 PM EDT ----- Message from Dr. Homero Mckeon sent at 04/26/2025 12:58 PM EDT ----- We could, but she got backed up with the stool pretty significantly from that half capfull. Better to run with it just a little bit on the loose side for a couple of weeks to let the colon shrink back down to normal size. Having said that I do not want it so loose that she is having accidents. ----- Message ----- From: Kellen Martinez MA Sent: 04/26/2025 9:31 AM EDT To: Homero Mckeon MD ----- Message from Kellen Martinez MA sent at 04/26/2025 9:31 AM EDT ----- * Telephone Encounter - Kellen Martinez MA - 04/26/2025 9:29 AM EDT She states she has had more formed stools through the weekend so she cut the miralax back to once daily. She wanted to know if EH thought she should go back to 0.5 capful like she was prior to the XR. * Telephone Encounter - Kellen Martinez MA - 04/26/2025 9:29 AM EDT ----- Message from Homero Mckeon MD sent at 04/26/2025 7:17 AM EDT ----- * Telephone Encounter - Homero Mckeon MD - 04/26/2025 7:16 AM EDT Her stool studies have come back negative. The C diff actually came back indeterminate Is she still having actual liquid diarrhea she improving documented in this encounter Plan of Treatment Upcoming Encounters Date Type Department Care Team (Late st Contact Info) Description 07/28/2025 11:30 AM EDT Office Visit [facility] [address] Family Medicine [address] [address] Homero Mckeon MD [address] [place] [address] 09/14/2025 11:30 AM EST Office Visit [facility] [place] [address] Family Medicine [address] [facility] 100 [place] [address] Homero Mckeon MD [address] [place] [address] documented as of this encounter Goals Goal [...] documented as of this encounter Care Teams Oracle Consultant Relationship Specialty Start Date End Date Homero Mckeon MD [address] [place] [address] PCP - Devoted 09/30/20 Homero Mckeon MD [address] [address] PCP - General Family Medicine 02/11/23 documented as of this encounter
--- OUTSIDE RECORDS SUMMARY | 2025-04-30 23:29 | XMS_ITS | Encounter Summary ---
Author Organization [facility] Address [address] [place] [address] Care Team Providers Care Assistant To The Director Name Role Phone Homero Moses MD Unavailable [phone] Homero Moses MD Primary Care Provider [phone] Encounter Details Date Type Department Care Team (Late st Contact Info) Description 08/05/2024 Clinisync Result Encounter NOMS External Department Unsolicited Homero Moses MD 112 [facility] [address] [place] [address] (Fax) Social History Tobacco Use Types Packs/Day [...] often do you attend chur ch or voodoo services? More than 4 times per year [...] any time in the past 12 m [facility], were you homeless or living in [...] AM EDT Office Visit [facility] [place] [facility] 112 [facility] 100 [place] [address] Homero Moses MD 112 [facility] 100 [place] [address] 09/14/2025 11:30 AM EST Office Visit [facility] [place] [facility] 112 [facility] 100 [place] [address] Homero Moses MD [address] [address] documented as of this encounter Goals Goal Patient Goal Type Associated Problems Recent Progress Patient-Stated? Author Help patient manage antidepressant medication Care Plan Patient on antidepressant monitoring plan No Kellen Martinez [place] Baseline PHQ-9 Care Plan Baseline PHQ-9 No Kellen Martinez [place] documented as of this encounter Procedures Procedure Name Priority Date/Time Associated Diagnosis Comments XR LUMBAR SPINE MIN 4V 08/05/2024 12:55 PM EST documented in this encounter Results * XR LUMBAR SPINE MIN 4V (08/05/2024 12:55 PM EST) Anatomical Region Laterality Modality Other 08/05/2024 12:5 5 PM EST Narrative 08/05/2024 12:57 [place] [address] XRay Report Signed Patient: GARY HAYNES MR#: [id number] : 1940 Acct:[id number] Age/Sex: 83 / F ADM Date: 08/04/24 Loc: RAD Attending Dr: HOMERO MOSES Ordering Physician: HOMERO MOSES Date of Service: 08/04/24 Procedure(s): XR lumbar spine min 4V Accession Number(s): [id number] cc: HOMERO MOSES [place] [id number] Patient Name: GARY HAYNES MRN: [id number] date: 1940 Sex: F Assigned Patient Location: RAD Current Patient Location: Accession/Order Number: [id number] Exam Date: 08/04/2024 15:18 Report Date: 08/05/2024 [...] Signed By: 08/05/24 1257 DD/ 1255 TD/TT: Director Client Services: Procedure Note Radiology, Radiologist, MD - 08/05/2024 [place] [address] XRay Report Signed Patient: GARY HAYNES KMR#: [id number] : 1940cct:[id number] Age/Sex: 83 / FADM Date: 08/04/24 Loc: RAD Attending Dr: HOMERO MOSES Ordering Physician: HOMERO MOSES Date of Service: 08/04/24 Procedure(s): XR lumbar spine min 4V Accession Number(s): [id number] cc: HOMERO MOSES [place] [address] Patient Name: GARY HAYNES MRN: [id number] date: 1940 Sex: F Assigned Patient Location: RAD Current Patient Location: Accession/Order Number: [id number] Exam Date: 08/04/2024 15:18 Report Date: 08/05/2024 [...] M.D. Signed By:08/05/24 1257 DD/ 1255 TD/TT: Director Client Services: Homero Moses MD [facility] IMAGING Final Resu lt documented in this encounter Visit Diagnoses Not on filedocumented in this encounter Additional Health Concerns Active Problems Noted Date Diagnosed Date Patient on antidepressant monitoring plan 2023 Baseline PHQ-9 02/03/2024 documented as of this encounter Care Teams Assistant To The Director Relationship Specialty Start Date End Date Homero Moses MD [address] [address] PCP - Devoted 09/30/20 Homero Moses MD [address] [address] PCP - General Family Medicine 02/11/23 documented as of this encounter
--- OUTSIDE RECORDS SUMMARY | 2025-04-30 23:29 | XMS_ITS | Encounter Summary ---
Author Organization [facility] Address [address] [place] [address] Care Team Providers Care Director Of Manufacturing Name Role Phone Homero Mckeon MD Unavailable [phone] Homero Mckeon MD Primary Care Provider + [phone] Encounter Details Date Type Department Care Team (Late st Contact Info) Description 04/28/2025 Bamboo flowsheet [facility] [place] 100 Family Medicine 112 [facility] 100 [place] [address] Homero Mckeon MD 112 [facility] 100 [place] [address] (Fax) Social History Tobacco Use Types Packs/Day [...] often do you attend chur ch or scientology services? More than 4 times per year [...] any time in the past [address] [facility], were you homeless or living [...] Medicine [address] [place] [address] [place] [address] Homero Mckeon MD [address] [place] [address] (Fax) 09/14/2025 11:30 AM EST Office Visit [facility] [place] 100 Family Medicine [address] [place] [address] [place] [address] Homero Mckeon MD [address] [place] [address] (Fax) documented as of this encounter Goals Goal Patient Goal Type Associated Problems Recent Progress Patient-Stated? Author Help patient manage antidepressant medication Care Plan Patient on antidepressant monitoring plan No Michelle December, [place] Baseline PHQ-9 Care Plan Baseline PHQ-9 No Michelle December, [place] documented as of this encounter Visit Diagnoses Not on filedocumented in this encounter Additional Health Concerns Active Problems Noted Date Diagnosed Date Patient on antidepressant monitoring plan 2023 Baseline PHQ-9 02/03/2024 documented as of this encounter Care Teams Director Of Manufacturing Relationship Specialty Start Date End Date Homero Mckeon MD 112 [facility] [address] [place] [address] (Fax) PCP - Devoted 09/30/20 Homero Mckeon MD 112 [facility] [address] [place] [address] (Fax) PCP - General Family Medicine 02/11/23 documented as of this encounter
--- OUTSIDE RECORDS SUMMARY | 2025-04-30 23:29 | XMS_ITS ---
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
--- OUTSIDE RECORDS SUMMARY | 2025-04-30 23:29 | XMS_ITS | Encounter Summary ---
Author Organization [facility] Address [address] [place] [address] Care Team Providers Care Home Hospice Aide Name Role Phone Homero Mckeon MD Unavailable [phone] Homero Mckeon MD Primary Care Provider + [phone] Encounter Details Date Type Department Care Team (Late st Contact Info) Description 04/22/2025 Clinisync Result Encounter N[facility]S External Department Unsolicited Homero Mckeon MD 112 [facility] [address] [place] [address] (Fax) Social History Tobacco Use Types Packs/Day [...] often do you attend chur ch or advent services? More than 4 times per year [...] any time in the past 12 m [facility], were you homeless or living in [...] AM EDT Office Visit [facility] [place] [facility] 112 [facility] [place] [address] Homero Mckeon MD 112 [facility] 100 [place] [address] 09/14/2025 11:30 AM EST Office Visit [facility] [place] [facility] 112 [facility] [address] [place] [address] Homero Mckeon MD 112 [facility] 100 [place] [address] documented as of this encounter Goals Goal Patient Goal Type Associated Problems Recent Progress Patient-Stated? Author Help patient manage antidepressant medication Care Plan Patient on antidepressant monitoring plan No Kellen Martinez AMAYA Baseline PHQ-9 Care Plan Baseline PHQ-9 No Kellen Martinez AMAYA documented as of this encounter Procedures Procedure Name Priority Date/Time Associated Diagnosis Comments C. DIFFICILE PCR Routine 04/22/2025 4:15 PM EDT CAMPYLOBACTER CULTURE Routine 04/22/2025 4:15 PM EDT SALMONELLA/SHIGELLA SCREEN Routine 04/22/2025 4:15 PM EDT E COLI SHIGA TOXIN EIA Routine 4:15 PM EDT documented in this encounter Results * CAMPYLOBACTER CULTURE (04/22/2025 4:15 PM EDT) CAMPYLOBACTER CULTURE Campylobacter Culture No Campylobacter species isolated. TB 04/22/2025 4:15 PM EDT 04/22/2025 5:00 PM EDT Narrative [facility] - 04/27/2025 5:12 PM EDT Homero Mckeon MD LAB BLOOD ORDERABLES Final R esult [facility] * SALMONELLA/SHIGELLA SCREEN (04/22/2025 4:15 PM EDT) SALMONELLA/SH IGELLA SCREEN Salmonella/Crystal gella Screen [facility] SALMONELLA/SH IGELLA SCREEN No Salmonella or Shigella recovered. [facility] 04/22/2025 4:15 PM EDT 04/22/2025 5:00 PM EDT Narrative [facility]IN[facility] - 04/27/2025 5:12 PM EDT Homero Mckeon MD LAB BLOOD ORDERABLES [facility] Performing Organization Address [facility] Co de Phone Number [facility] * E COLI SHIGA TOXIN EIA (04/22/2025 4:15 PM EDT) E COLI SHIGA TOXIN EIA E coli Shiga Toxin EIA [facility] E COLI SHIGA TOXIN EIA Negative [facility] E COLI SHIGA TOXIN EIA Performed at: [facility] E COLI SHIGA TOXIN EIA [address] [place], [place] [id number] [facility] E COLI SHIGA TOXIN EIA Data Security Coordinator: Devin Pichardo PhD, Phone: [phone] [facility] 04/22/2025 4:15 PM EDT 04/22/2025 5:00 PM EDT Narrative [facility] - 04/27/2025 5:12 PM EDT Homero Mckeon MD LAB BLOOD ORDERABLES Final R [facility] Performing Organization Address City/[facility] Co de Phone Number [facility] * C. DIFFICILE PCR (04/22/2025 4:15 PM EDT) C. DIFFICILE PCR INCONCLUSIVE [facility] 04/22/2025 4:15 PM EDT 04/22/2025 5:00 PM EDT Narrative [facility] - 04/22/2025 7:46 PM EDT Homero Mckeon MD LAB BLOOD ORDERABLES Edited Result - Final [facility] documented in this encounter Visit Diagnoses Not on filedocumented in this encounter Additional Health Concerns Active Problems Noted Date Diagnosed Date Patient on antidepressant monitoring plan 2023 Baseline PHQ-9 02/03/2024 documented as of this encounter Care Teams Home Hospice Aide Relationship Specialty Start Date End Date Homero Mckeon MD [address] [address] PCP - Devoted 09/30/20 Homero Mckeon MD [address] [address] PCP - General Family Medicine 02/11/23 documented as of this encounter
--- OUTSIDE RECORDS SUMMARY | 2025-04-30 23:30 | XMS_ITS | Encounter Summary ---
Author Organization [facility] Address [address] [place] [address] Care Team Providers Care Speech And Language Assistant Name Role Phone Homero Mckeon MD Unavailable [phone] Homero Mckeon MD Primary Care Provider + [phone] Reason for Visit * Reason Comments Med Refill Encounter Details Date Type Department Care Team (Late st Contact Info) Description 11/18/2024 Refill [facility] [place] 100 Family Medicine 112 [facility] 100 [place] [address] Homero Mckeon MD 112 [facility] 100 [place] [address] (Fax) Acquired central hypothyroidism Social History Tobacco Use Types Packs/Day Years [...] often do you attend chur ch or evangelical services? More than 4 times per year [...] any time in the past 12 m [facility], were you homeless or living [...] Medicine [address] [place] [address] Homero Mckeon MD [address] [place] [address] (Fax) 09/14/2025 11:30 AM EST Office Visit [facility] [place] 100 Family Medicine [address] [place] [address] [place] [address] Homero Mckeon MD [address] [place] [address] (Fax) documented as of this encounter Goals Goal Patient Goal Type Associated Problems Recent Progress Patient-Stated? Author Help patient manage antidepressant medication Care Plan Patient on antidepressant monitoring plan No Michelle, December, [place] Baseline PHQ-9 Care Plan Baseline PHQ-9 No Michelle December, [place] documented as of this encounter Visit Diagnoses Diagnosis Acquired central hypothyroidism documented in this encounter Additional Health Concerns Active Problems Noted Date Diagnosed Date Patient on antidepressant monitoring plan 2023 Baseline PHQ-9 02/03/2024 documented as of this encounter Care Teams Speech And Language Assistant Relationship Specialty Start Date End Date Homero Mckeon MD [address] [place] [address] (Fax) PCP - Devoted 09/30/20 Homero cMkeon MD [address] [place] [address] (Fax) PCP - General Family Medicine 02/11/23 documented as of this encounter
--- OUTSIDE RECORDS SUMMARY | 2025-04-30 23:30 | XMS_ITS | Encounter Summary ---
Author Organization [facility] Address [address] [place] [address] Care Team Providers Care Fish Packer Name Role Phone Homero Mckeon MD Unavailable [phone] Homero Mckeon MD Primary Care Provider + [phone] Encounter Details Date Type Department Care Team (Late Contact Info) Description 06/12/2023 Abstract [facility] [place] Family Medicine [address] [facility] [place] [address] Homero Mckeon MD [address] [address] (Fax) Social History Tobacco Use Types Packs/Day [...] [facility] [place] 100 Family Medicine 112 [facility] 100 [place] [address] Homero Mckeon MD [address] [address] (Fax) 09/14/2025 11:30 AM EST Office Visit [facility] [place] [facility] 112 [facility] [place] [address] [place] [address] Homero Mckeon MD 112 [facility] 100 [place] [address] documented as of this encounter Visit Diagnoses Not on filedocumented in this encounter Care Teams Fish Packer Relationship Specialty Start Date End Date Homero Mckeon MD 112 [facility] [address] [place] [address] PCP - Devoted 09/30/20 Homero Mckeon MD 112 [facility] [address] [place] [address] PCP - General Family Medicine 02/11/23 documented as of this encounter
--- OUTSIDE RECORDS SUMMARY | 2025-04-30 23:30 | XMS_ITS | Encounter Summary ---
Author Organization [facility] Address [address] [place] [address] Care Team Providers Care Boats Renter Name Role Phone Homero Moses MD Unavailable [phone] Homero Moses MD Primary Care Provider [phone] Encounter Details Date Type Department Care Team (Late st Contact Info) Description 09/07/2024 Clinisync Result Encounter [facility] External Department Unsolicited Homero Moses MD 112 [facility] [address] [place] [address] (Fax) Social History Tobacco Use Types Packs/Day [...] often do you attend chur ch or church services? More than 4 times per year [...] any time in the past 12 m [facility], were you homeless or living [...] AM EDT Office Visit [facility] [place] [facility] 112 [facility] 100 [place] [address] Homero Moses MD 112 [facility] 100 [place] [address] 09/14/2025 11:30 AM EST Office Visit [facility] [place] [facility] [address] [facility] 100 [place] [address] Homero Moses MD 112 [facility] 100 [place] [address] documented as of this encounter Goals Goal [...] AM EST Narrative 09/07/2024 9:31 AM EST The [address] [address] Mammography Report Signed Patient: GARY HAYNES MR#: [id number] : 1940 Acct:[id number] Age/Sex: 83 / F ADM Date: 09/07/24 Loc: MAMMO Attending Dr: HOMERO MOSES Ordering Physician: HOMERO MOSES Results: Date of Service: 09/07/24 Follow Up: Procedure(s): MM tomosynthesis screening BI Accession Number(s): [id number] cc: HOMERO MOSES Patient Name: GARY HAYNES MR#: [id number] : 1940 Exam Date: 09/07/2024 Ordering Doctor: [...] colon cancer at age 71. LOCATION: [facility] BREAST COMPOSITION: The breasts are heterogeneously dense,which [...] M.D. Signed By: 09/07/24930 DD/ 9 TD/TT: Digital Media Designer: Procedure Note Radiology, Radiologist, MD - 09/07/2024 [place] [address] Mammography Report Signed Patient: GARY HAYNES KMR#: [id number] : 1940cct:[id number] Age/Sex: 83 / FADM Date: 09/07/24 Loc: MAMMO Attending Dr: HOMERO MOSES Ordering Physician: HOMERO MOSESResults: Date of Service: 09/07/24Follow Up: Procedure(s): MM tomosynthesis screening BI Accession Number(s): [id number] cc: HOMERO MOSES Patient Name: GARY HAYNES MR#: [id number] : 1940 Exam Date: 09/07/2024 Ordering Doctor: DR HOMERO MOSES . RADIOLOGY REPORT PROCEDURE: MM TOMOSYNTHESIS SCREENING BI COMPARISON: MM TOMOSYNTHESIS SCREENING BI, 08/09/2023. MG MAMM [id number] RUBEN CAD, 07/04/2022. MG MAMM RUBEN DIAG W CAD, 12/10/2019. MAMMO BILSCREEN, 07/08/2008. INDICATIONS: Screening Calculator Name NCI Breast Cancer Risk Assessment Tool 5 Year Breast Cancer Risk n/a% Lifetime Breast Cancer Risk n/a% Personal Breast Cancer Yes, Right, 76 Personal Ovarian Cancer No Treatments lumpectomy and radiation treatment Family Cancers Mother with colon cancer at age 70. LOCATION: [facility] BREAST COMPOSITION: The breasts are heterogeneously dense,which [...] Velásquez M.D. Signed By:09/07/24930 DD/ 9 TD/TT: Digital Media Designer: Homero Moses MD [facility] Final Resu lt documented in this encounter Visit Diagnoses Not on filedocumented in this encounter Additional Health Concerns Active Problems Noted Date Diagnosed Date Patient on antidepressant monitoring plan 2023 Baseline PHQ-9 02/03/2024 documented as of this encounter Care Teams Boats Renter Relationship Specialty Start Date End Date Homero Moses MD [address] [place] [address] PCP - Devoted 09/30/20 Homero Moses MD [address] [place] [address] PCP - General Family Medicine 02/11/23 documented as of this encounter
--- OUTSIDE RECORDS SUMMARY | 2025-04-30 23:30 | XMS_ITS | Encounter Summary ---
Author Organization [facility] Address [address] [place] [address] Care Team Providers Care Shrimp Packer Name Role Phone Homero Mckeon MD Unavailable [phone] Homero Mckeon MD Primary Care Provider + [phone] Reason for Visit * Reason Comments Med Refill Encounter Details Date Type Department Care Team (Late st Contact Info) Description 10/21/2024 Refill [facility] [place] [facility] Family Medicine 112 [facility] 100 [place] [address] Homero Mckeon MD 112 [facility] 100 [place] [address] (Fax) Social History Tobacco Use Types Packs/Day [...] often do you attend chur ch or lutheran services? More than 4 times per year [...] in the past 12 m [facility], were you homeless or living in [...] Medicine [address] [place] [address] [place] [address] Homero Mckeon MD [address] [place] [address] (Fax) 09/14/2025 11:30 AM EST Office Visit [facility] [place] [facility] Family Medicine [address] [place] [address] [place] [address] Homero Mckeon MD [address] [place] [address] (Fax) documented as of this encounter Goals Goal Patient Goal Type Associated Problems Recent Progress Patient-Stated? Author Help patient manage antidepressant medication Care Plan Patient on antidepressant monitoring plan No Michelle December, [place] Baseline PHQ-9 Care Plan Baseline PHQ-9 No Michelle December, [place] documented as of this encounter Visit Diagnoses Not on filedocumented in this encounter Additional Health Concerns Active Problems Noted Date Diagnosed Date Patient on antidepressant monitoring plan 2023 Baseline PHQ-9 02/03/2024 documented as of this encounter Care Teams Shrimp Packer Relationship Specialty Start Date End Date Homero Mckeon MD [address] [place] [address] (Fax) PCP - Devoted 09/30/20 Homero Mckeon MD [address] [place] [address] (Fax) PCP - General Family Medicine 02/11/23 documented as of this encounter
--- OUTSIDE RECORDS SUMMARY | 2025-04-30 23:30 | XMS_ITS | Encounter Summary ---
Author Organization [facility] Address [address] [place] [address] Care Team Providers Care Mission Planner Name Role Phone Homero Mckeon MD Unavailable [phone] Homero Mckeon MD Primary Care Provider + [phone] Encounter Details Date Type Department Care Team (Late Contact Info) Description 05/15/2023 Orders Only [facility] [place] [facility] [address] [facility] [place] [address] Homero Mckeon MD [address] [address] (Fax) Social History Tobacco Use Types Packs/Day [...] Visit [facility] [place] 100 Family Medicine 112 [facility] 100 [place] [address] Homero Mckeon MD 112 [facility] 100 [place] [address] 09/14/2025 11:30 AM EST Office Visit [facility] [place] 100 Family Medicine 112 [facility] 100 [place] [address] Homero Mckeon MD [address] [place] [address] documented as of this encounter Visit Diagnoses Not on filedocumented in this encounter Care Teams Mission Planner Relationship Specialty Start Date End Date Homero Mckeon MD [address] [place] [facility] 100 [place] [address] PCP - Devoted 09/30/20 Homero Mckeon MD [address] [place] [facility] [address] [place] [address] PCP - General Family Medicine 02/11/23 documented as of this encounter
--- OUTSIDE RECORDS SUMMARY | 2025-04-30 23:30 | XMS_ITS | Encounter Summary ---
Author Organization [facility] Address [address] [place] [address] Care Team Providers Care Lithograph Press Feeder Name Role Phone Homero Mckeon MD Unavailable [phone] Homero Mckeon MD Primary Care Provider + [phone] Reason for Visit * Reason Comments Med Refill Encounter Details Date Type Department Care Team (Late st Contact Info) Description 10/28/2024 Refill [facility] [place] 100 Family Medicine 112 [facility] 100 [place] [address] Homero Mckeon MD 112 [facility] 100 [place] [address] (Fax) Acquired central hypothyroidism Social History Tobacco [...] often do you attend chur ch or faith services? More than 4 times per year [...] time in the past 12 m [facility], were you homeless or living in [...] Medicine [address] [place] [address] [place] [address] Homero Mckeon MD [address] [place] [address] (Fax) 09/14/2025 11:30 AM EST Office Visit [facility] [place] 100 Family Medicine [address] [place] [address] [place] [address] Homero Mckeon MD [address] [place] [address] (Fax) documented as of this encounter Goals Goal Patient Goal Type Associated Problems Recent Progress Patient-Stated? Author Help patient manage antidepressant medication Care Plan Patient on antidepressant monitoring plan No Michelle, December, [place] Baseline PHQ-9 Care Plan Baseline PHQ-9 No Michelle December, [place] documented as of this encounter Visit Diagnoses Diagnosis Acquired central hypothyroidism documented in this encounter Additional Health Concerns Active Problems Noted Date Diagnosed Date Patient on antidepressant monitoring plan 2023 Baseline PHQ-9 02/03/2024 documented as of this encounter Care Teams Lithograph Press Feeder Relationship Specialty Start Date End Date Homero Mckeon MD [address] [place] [address] (Fax) PCP - Devoted 09/30/20 Homero Mckeon MD [address] [place] [address] (Fax) PCP - General Family Medicine 02/11/23 documented as of this encounter
--- OUTSIDE RECORDS SUMMARY | 2025-04-30 23:30 | XMS_ITS | Encounter Summary ---
Author Organization [facility] Address [address] [place] [address] Care Team Providers Care Residential Advisor Name Role Phone Homero Mckeon MD Unavailable [phone] Homero Mckeon MD Primary Care Provider + [phone] Encounter Details Date Type Department Care Team (Late st Contact Info) Description 09/14/2024 Orders Only [facility] [place] [facility] Family Medicine 112 [facility] 100 [place] [address] Homero Mckeon MD 112 [facility] 100 [place] [address] (Fax) Social History Tobacco Use Types Packs/Day [...] often do you attend chur ch or baptism services? More than 4 times per year [...] Visit [facility] [place] [facility] 112 [facility] 100 [place] [address] Homero Mckeon MD 112 [address] [place] [address] (Fax) 09/14/2025 11:30 AM EST Office Visit [facility] [place] [facility] 112 [facility] 100 [place] [address] Homero Mckeon MD 112 [address] [place] [address] documented as of this encounter Goals Goal [...] documented as of this encounter Care Teams Residential Advisor Relationship Specialty Start Date End Date Homero Mckeon MD [address] [address] [place] [address] PCP - Devoted 09/30/20 Homero Mckeon MD 112 [address] [place] [address] PCP - General Family Medicine 02/11/23 documented as of this encounter
== END 2025-04-28 16:04 | disposition home or self-care (01) ==
LOC: LAB 04-30 23:26
PROVIDERS: PCP Family Medicine; Visit Provider Family Medicine
DX: R61 Generalized hyperhidrosis (principal); R10.9 Unspecified abdominal pain; M25.50 Pain in unspecified joint
CPT/HCPCS: 36415; 85025; 85652